=== PATIENT | male | born 1960 | race Caucasian/White ===

== ENCOUNTER 2020-06-09 05:53 | Emergency (ER) | payer MEDICAID, SELFPAY ==
[2020-06-09 05:59] VITALS: BP 163/113; PULSE 95; RESP 18; TEMP 36.8; O2SAT 97; BMI 26.6
[2020-06-09 06:04] VITALS: BP 186/103
--- NOTE | 2020-06-09 06:38 | ED.GENADULT ---
HPI - General Adult General Chief complaint: General Medical Stated complaint: Nose Bleed Time Seen by Provider: 06/09/20 06:28 Source: patient Mode of arrival: EMS History of Present Illness HPI narrative: This is a 59-year-old male who is brought in by EMS and denies being on blood thinners stating that for the past 3 days he has been having intermittent nose bleeds affecting the right nostril. He states that this morning when he got up to watch the news it happened again, but this time seems to be bleeding a little bit more and so he called EMS. Patient denies any headache, chest pain, shortness of breath, GI symptoms. Related Data Allergies Allergy/AdvReac Type Severity Reaction Status Date / Time acetaminophen [From PERCOCET] Allergy Unknown UNKNOWN Unverified 11/29/19 15:03 oxycodone [From PERCOCET] Allergy Unknown UNKNOWN Unverified 11/29/19 15:03 Penicillins [PENICILLINS] Allergy Unknown UNKNOWN Unverified 11/29/19 15:03 Review of Systems Review of Systems: Pertinent positives and negatives as stated in the HPI 10 point review of systems is otherwise negative. [facility] Past Medical History Source: nursing notes reviewed Medical History COPD (chronic obstructive pulmonary disease) H/O ETOH abuse Heart disease History of seizure Surgical History H/O left wrist surgery Social History Social History Advance Directives: No Advance Directives Information Provided: No Physical Exam Vital Signs: Vital Signs: Last Vital Signs Temp 98.3 F 06/09/20 05:59 Pulse 95 06/09/20 05:59 Resp 18 06/09/20 05:59 BP 186/103 H 06/09/20 06:04 Pulse Ox 97 06/09/20 05:59 Body Mass Index 26.6 VITAL SIGNS: Reviewed. GENERAL: Well developed, well nourished, in no acute distress. HEAD: Normocephalic/atraumatic EYES: PERRLA, EOMI EARS: Ext canals without abnormality, TMs non-bulging and non-erythematous NOSE: Examination of the right nostril negative for septal hematoma, active bleeding, but a few small clots were noted. OROPHARYNX: no oral lesions noted, posterior pharynx clear, no stigmata of bleeding noted in the posterior pharynx NECK: Supple, no adenopathy LUNGS: Normal breath sounds. No adventitious sounds or accessory muscle use. SpO2<97> CARDIOVASCULAR: Regular rate and rhythm without noted murmurs, no JVD or lower extremity edema. ABDOMEN: Soft, non-tender, non-distended with bowel sounds. NEUROLOGIC: Alert and oriented x 4. Course Course Course Narrative: This is a 59-year-old male with history and clinical presentation consistent with epistaxis likely secondary to combination of dried mucosa with elevated blood pressure. Patient is currently hemostatic, placed a single dose of Afrin within the right nostril, and patient was discharged in stable condition. In addition, patient received a dose of hydrochlorothiazide and was instructed to follow up with his primary care provider for medication adjustment. As patient is asymptomatic with this blood pressure further evaluation was not conducted. Discharge Plan Discharge Clinical Impression: Epistaxis Patient Disposition: Home, Self-Care Instructions: Oxymetazoline (Into the nose), Nosebleed (ED) Additional Instructions: 1. Please follow-up with your primary care provider today for re-evaluation and assessment of your blood pressure. 2. Please resume any home medications you are taking as prescribed. 3. You may use Afrin, 1 squirt up the affected nostril and then immediate application of pressure for 5 minutes. Re-evaluate after 5 minutes the need to apply another inhalation. 4. In addition, saline spray which is available [id number] and use as directed to keep the nasal mucosa moist. Do not hesitate to return to the emergency department should you experience any acute worsening of symptoms. Referrals: Physician,Unknown [Primary Care Provider] - 2 days
[2020-06-09] MEDS: Oxymetazoline HCl 0.05 % Nasal 15 ML SPRAY 2 SPRAY NOSTRIL-R (06:40)
[2020-06-09] MEDS: hydroCHLOROthiazide 12.5 MG TABLET PO (06:40)
== END 2020-06-09 07:45 | disposition home or self-care (01) ==
PROVIDERS: Emergency Provider Student in an Organized Health Care Education/Training Program
DX: R04.0 Epistaxis (principal); J44.9 Chronic obstructive pulmonary disease, unspecified; F10.10 Alcohol abuse, uncomplicated
CPT/HCPCS: 99283

== ENCOUNTER 2020-09-20 16:27 | Inpatient (IN) | payer MEDICAID, SELFPAY ==
--- NOTE | ~2020-09-20 | XR_ITS ---
EXAMINATION: XR CHEST CLINICAL INFORMATION: 60-year-old male patient with incontinence and history of EtOH. COMPARISON: Last available chest x-ray on 01/28/2012. TECHNIQUE: AP portable semierect views of the chest were obtained. The time examination was 4:55 PM. FINDINGS: No significant abnormality is noted involving the heart, lungs, mediastinum, or bony thorax. There is some soft tissue swelling in the lower right neck of undetermined etiology. XR/XR chest 1V IMPRESSION: No evidence of acute pulmonary disease. Soft tissue swelling lower right neck.
--- NOTE | ~2020-09-20 | CT_ITS ---
CT head/brain wo con CLINICAL INFORMATION: Seizure COMPARISON: Prior head CT 09/20/2020 TECHNIQUE: Department standard protocol. This CT examination was performed using dose optimization techniques as appropriate, variously including the following: *Automated exposure control *Adjustment of mA and/or kV according to patient size (this includes techniques or standardized protocols for targeted exams where dose is matched to indication/reason for exam; i.e. extremities or head) *Use of iterative reconstruction technique DLP: 715 mGy-cm FINDINGS: CEREBRAL HEMISPHERES: Small lacunar infarct in the right ford radiata right basal ganglia adjacent to the caudate lobe unchanged. BRAIN PARENCHYMA: Deep white matter and paraventricular hypoattenuation, nonspecific; most likely changes secondary to chronic ischemia due to microvascular angiopathy. SUBDURAL SPACE: CSF filled space in the right temporal fossa probably arachnoid cyst. This has not changed, roughly measures 4.2 x 2.2 cm. VENTRICLES: Symmetric and normal in size. CEREBELLUM AND BRAINSTEM: No space-occupying mass, hemorrhage or acute infarct. CEREBELLOPONTINE ANGLES: No lesion found. ORBITS: No intraorbital mass. VESSELS: The vessels are symmetrically dense likely vascular. SKULL BASE: Unremarkable INCLUDED SINUSES AT SKULL BASE: Clear SKULL AND SKIN: No fracture or bone lesion found. CT/CT head/brain wo con IMPRESSION: Diffuse deep global white matter white matter and periventricular hypoattenuation, nonspecific; most likely sequela of chronic microvascular angiopathy ischemia. Stable lacunar infarct right basal ganglia ford radiata adjacent to the caudate lobe. Normal CT scan does not rule out the possibility of hyperacute infarct in the first 12 hours. If patient symptoms persist may consider correlation with MRI, which is more sensitive for early acute infarct.
--- NOTE | ~2020-09-20 | CT_ITS ---
EXAMINATION: CT HEAD WITHOUT CONTRAST CLINICAL INFORMATION: Hyponatremia. Diaphoresis. COMPARISON: 07/22/2019 TECHNIQUE: Contiguous axial imaging was performed from the skull base to vertex without intravenous contrast. This CT examination was performed using dose optimization techniques as appropriate, variously including the following: * Automated exposure control * Adjustment of mA and/or kV according to patient size (this includes techniques or standardized protocols for targeted exams where dose is matched to indication/reason for exam; i.e. extremities or head) Use of iterative reconstruction technique DLP: 725 mGy-cm. FINDINGS: There is no evidence of acute intracranial hemorrhage or territorial infarction. No abnormal mass effect or midline shift is seen. Huertas to white matter differentiation is well preserved. No extra-axial fluid collections are identified. No hydrocephalus. Proportional prominence of the ventricles and sulcal spaces is consistent with moderate volume loss. Patchy periventricular and deep white matter hypoattenuation is consistent with moderate small vessel ischemic changes. The osseous structures and soft tissues are normal. The mastoid air cells and visualized portions of the paranasal sinuses are well aerated. CT/CT head/brain wo con IMPRESSION: No acute intracranial pathology. Chronic volume loss with small vessel ischemic change.
[2020-09-20 16:38] VITALS: BP 150/80; PULSE 83; O2SAT 96
[2020-09-20 16:39] VITALS: BP 157/100; PULSE 91; RESP 18; TEMP 36.7; O2SAT 97
--- NOTE | 2020-09-20 16:39 | ECG_ITS ---
Test Reason : STUBSTANCE ABUSE Blood Pressure : / mmHG Vent. Rate : 078 BPM Atrial Rate : 078 BPM P-R Int : 134 ms QRS Dur : 084 ms QT Int : 438 ms P-R-T Axes : 064 044 068 degrees QTc Int : 499 ms Normal sinus rhythm Prolonged QT Abnormal ECG When compared with ECG of 22-JUL-2019 13:36, QT has lengthened Referred By: Yoly Abebe Electronically Signed By:BREANA MATTHEWS
[2020-09-20 16:49] VITALS: BP 157/100; BP 190/80; PULSE 78; PULSE 83; RESP 20; TEMP 36.6; O2SAT 96; BMI 26.1
--- NOTE | 2020-09-20 16:52 | ED_ITS ---
HPI - General Adult General Chief complaint: ETOH/Substance Use Stated complaint: etoh Time Seen by Provider: 09/20/20 16:30 Source: patient and EMS Mode of arrival: EMS History of Present Illness HPI narrative: 60-year-old male with a past medical history of COPD, ETOH abuse, heart disease, seizure, BIBA for ETOH abuse, diaphoresis, and urinary incontinence. Reports last drink earlier this morning. Per EMS patient's girlfriend called due to her concern. Patient offers no complaints at present. Patient denies ETOH use, illicit drug use, CP/SOB, abdominal pain, nausea/vomiting, back pain, fall/trauma. Denies taking anticoagulation. Denies SI/HI Related Data Allergies Allergy/AdvReac Type Severity Reaction Status Date / Time acetaminophen [From PERCOCET] Allergy Unknown UNKNOWN Unverified 11/29/19 15:03 oxycodone [From PERCOCET] Allergy Unknown UNKNOWN Unverified 11/29/19 15:03 Penicillins [PENICILLINS] Allergy Unknown UNKNOWN Unverified 11/29/19 15:03 Review of Systems Review of Systems: Constitutional: No Fever, No Chills Cardiovascular: No Chest Pain, No SOB, No Edema, No Palpitations Respiratory: No Cough, No Dyspnea Gastrointestinal: No Nausea, No Vomiting, No Diarrhea, No Constipation, No Abdominal pain Genitourinary: No Dysuria, No Urinary Frequency, No Hematuria, + Urinary Incontinence Musculoskeletal: No joint pain, No Myalgias, No Joint Swelling Skin: No Skin Lesions, No rash Neuro: No Weakness, No Loss of Consciousness, No Headache Psych: No Anxiety/Panic, No Depression, No SI/HI Yes all other systems are reviewed and are negative Neurologic: Denies Abnormal speech present [facility] Past Medical History Attestation statement: The following information was validated with the patient. Medical History COPD (chronic obstructive pulmonary disease) H/O ETOH abuse Heart disease History of seizure Surgical History H/O left wrist surgery Social History Social History Advance Directives: No Advance Directives Information Provided: No Physical Exam Vital Signs: Vital Signs: Last Vital Signs Temp 98.3 F 09/20/20 20:23 Pulse 90 09/20/20 20:23 Resp 18 09/20/20 20:23 BP 153/103 H 09/20/20 20:23 Pulse Ox 96 09/20/20 20:23 Body Mass Index 26.1 Const: Other: poor hygiene/incontinent of urine General: poor hygiene Orientation/consciousness: patient oriented x3 Limitations: no limitations HENMT: Head: Yes normal to inspection and Yes atraumatic Ears: hearing grossly normal bilaterally General nose exam: Normal external nose present Face and sinus: Yes normal facial exam Eyes: General: appearance normal, both eyes and all related structures Pupils: Equal, round and reactive pupils present EOM: EOMs intact bilaterally Neck: Neck: Yes normal visual inspection and Yes no meningeal signs Resp: Effort & Inspection: normal respiratory effort Auscultation: clear to auscultation bilaterally, no rales and no wheezes Cardio: Rate: regular rate Heart sounds: S1 normal heart sound present and S2 normal heart sound present GI: Inspection: Yes normal to inspection Palpation (GI): Soft to palpation, nontender, no guarding and not rigid Skin: Rashes: no rashes Wounds: no wounds Neuro: General: patient oriented x3, tone normal, moves all extremities, no meningeal signs, no focal motor deficits and CN's II-XI intact bilaterally Cranial nerves: Yes Equal, round and reactive pupils present Speech: No Abnormal speech present Gait exam (Neuro): Normal gait present Motor exam (neuro): 5/5 motor strength present throughout Extrem: General: Yes normal to inspection Course Course Course Narrative: XR chest 1V IMPRESSION: No evidence of acute pulmonary disease. Soft tissue swelling lower right neck. >> no appreciable soft tissue swelling on physical exam. No intraoral swelling. Uvula midline, handling secretions, talking in complete sentences -2007--no leukocytosis, H&H stable, hyponatremic with a sodium of 123 >> serum osmolality and urine studies ordered. Hyponatremia and ETOH abuse putting him at greater risk for seizures > 1G Keppra ordered. Potassium low at 2.4 > p.o. and IV repletion ordered -troponin mildly elevated at 31.8 > will obtain 3 hour repeat, ethanol negative Plan to admit for further management. Admitted at 8:37 p.m. Medical Decision Making [facility] Narrative Medical decision making narrative: 60-year-old male with a past medical history of COPD, ETOH abuse, heart disease, seizure, BIBA for ETOH abuse, diaphoresis, and urinary incontinence. On exam hypertensive, A&O x3, poor hygiene, asymptomatic, poor historian, exam nonfocal. Concern for ETOH/substance abuse vs metabolic/infectious etiology vs ACS Plan: EKG, labs, UA, CXR, IVF, reassess Lab Data Result diagrams: 09/20/20 19:45 09/20/20 19:45 Labs: Lab Results 09/20/20 09/20/20 09/20/20 Range/Units 17:24 18:44 18:44 WBC (4.8-10.8) X10*3/uL RBC (4.60-5.80) X10*6/uL Hgb (14.0-18.0) g/dl Hct (42-52) % MCV (80-98) fL MCH (27.0-33.0) pg MCHC (31.0-36.0) g/dl RDW (11.0-16.0) % Plt Count (160-400) X10*3/uL MPV (9.4-12.4) fL Immature Gran % (Auto) (0.0-0.4) % Neut % (Auto) (45-73) % Lymph % (Auto) (20-40) % Robertson % (Auto) (2-11) % Eos % (Auto) (0-4) % Baso % (Auto) (0-2) % Lymph # (Auto) (1.2-4.9) X10*3/uL Robertson # (Auto) (0.1-1.2) X10*3/uL Eos # (Auto) (0.0-0.4) X10*3/uL Baso # (Auto) (0.0-0.2) X10*3/uL Abs Immat Gran (auto) (0.00-0.03) X10*3/uL Absolute Neuts (auto) (2.0-8.3) X10*3/uL Absolute Nucleated RBC (0.0-0.012) X10*3/uL Nucleated RBC % (auto) (0.0-0.2) /100WBC Smear Tech's Comments PT 10.6 (9.9-13.0) SEC INR 0.9 (0.9-1.1) APTT 29.1 (24.1-38.0) SEC Coag Specimen Comment DELAY Sodium (135-145) mmol/L Potassium (3.3-5.1) mmol/L Chloride (96-108) mmol/L Carbon Dioxide (22-29) mmol/L Anion Gap (12-20) BUN (9-16) mg/dL Creatinine (0.5-1.4) mg/dL Estim Creat Clear Calc Estimated GFR Random Glucose (60-115) mg/dL Osmolality (281-305) mosm/kg Calcium (8.4-10.2) mg/dL Magnesium (1.6-2.6) mg/dL Total Bilirubin (0.0-1.0) mg/dL Direct Bilirubin (0.0-0.5) mg/dL AST (5-37) U/L ALT (0-40) U/L Alkaline Phosphatase (39-117) U/L Ammonia 31 (13-55) umol/L Troponin I High Sens 31.8 (<3.5-35.0) ng/L Total Protein (6.5-8.0) g/dL Albumin (3.5-5.0) g/dL Lipase (8-78) U/L Ethyl Alcohol mg/dL 09/20/20 09/20/20 09/20/20 Range/Units 18:45 19:45 19:45 WBC 9.0 (4.8-10.8) X10*3/uL RBC 3.49 L (4.60-5.80) X10*6/uL Hgb 12.2 L (14.0-18.0) g/dl Hct 31.3 L (42-52) % MCV 89.7 (80-98) fL MCH 35.0 H (27.0-33.0) pg MCHC 39.0 H (31.0-36.0) g/dl RDW 12.7 (11.0-16.0) % Plt Count 150 L (160-400) X10*3/uL MPV 8.8 L (9.4-12.4) fL Immature Gran % (Auto) 0.6 H (0.0-0.4) % Neut % (Auto) 85.2 H (45-73) % Lymph % (Auto) 5.3 L (20-40) % Robertson % (Auto) 8.6 (2-11) % Eos % (Auto) 0.2 (0-4) % Baso % (Auto) 0.1 (0-2) % Lymph # (Auto) 0.5 L (1.2-4.9) X10*3/uL Robertson # (Auto) 0.8 (0.1-1.2) X10*3/uL Eos # (Auto) 0.0 (0.0-0.4) X10*3/uL Baso # (Auto) 0.0 (0.0-0.2) X10*3/uL Abs Immat Gran (auto) 0.05 H (0.00-0.03) X10*3/uL Absolute Neuts (auto) 7.7 (2.0-8.3) X10*3/uL Absolute Nucleated RBC 0.000 (0.0-0.012) X10*3/uL Nucleated RBC % (auto) 0.0 (0.0-0.2) /100WBC Smear Tech's Comments VERIFIED PT (9.9-13.0) SEC INR (0.9-1.1) APTT (24.1-38.0) SEC Coag Specimen Comment Sodium 123 L (135-145) mmol/L Potassium 2.4 L* (3.3-5.1) mmol/L Chloride 70 L (96-108) mmol/L Carbon Dioxide 34 H (22-29) mmol/L Anion Gap 21 H (12-20) BUN 12 (9-16) mg/dL Creatinine 1.01 (0.5-1.4) mg/dL Estim Creat Clear Calc 77.1 Estimated GFR > 60 Random Glucose 95 (60-115) mg/dL Osmolality (281-305) mosm/kg Calcium 8.7 (8.4-10.2) mg/dL Magnesium 1.7 (1.6-2.6) mg/dL Total Bilirubin 1.1 H (0.0-1.0) mg/dL Direct Bilirubin 0.7 H (0.0-0.5) mg/dL AST 28 (5-37) U/L ALT 14 (0-40) U/L Alkaline Phosphatase 123 H (39-117) U/L Ammonia (13-55) umol/L Troponin I High Sens (<3.5-35.0) ng/L Total Protein 6.5 (6.5-8.0) g/dL Albumin 3.8 (3.5-5.0) g/dL Lipase 66 (8-78) U/L Ethyl Alcohol < 10 mg/dL 09/20/20 Range/Units 19:45 WBC (4.8-10.8) X10*3/uL RBC (4.60-5.80) X10*6/uL Hgb (14.0-18.0) g/dl Hct (42-52) % MCV (80-98) fL MCH (27.0-33.0) pg MCHC (31.0-36.0) g/dl RDW (11.0-16.0) % Plt Count (160-400) X10*3/uL MPV (9.4-12.4) fL Immature Gran % (Auto) (0.0-0.4) % Neut % (Auto) (45-73) % Lymph % (Auto) (20-40) % Robertson % (Auto) (2-11) % Eos % (Auto) (0-4) % Baso % (Auto) (0-2) % Lymph # (Auto) (1.2-4.9) X10*3/uL Robertson # (Auto) (0.1-1.2) X10*3/uL Eos # (Auto) (0.0-0.4) X10*3/uL Baso # (Auto) (0.0-0.2) X10*3/uL Abs Immat Gran (auto) (0.00-0.03) X10*3/uL Absolute Neuts (auto) (2.0-8.3) X10*3/uL Absolute Nucleated RBC (0.0-0.012) X10*3/uL Nucleated RBC % (auto) (0.0-0.2) /100WBC Smear Tech's Comments PT (9.9-13.0) SEC INR (0.9-1.1) APTT (24.1-38.0) SEC Coag Specimen Comment Sodium (135-145) mmol/L Potassium (3.3-5.1) mmol/L Chloride (96-108) mmol/L Carbon Dioxide (22-29) mmol/L Anion Gap (12-20) BUN (9-16) mg/dL Creatinine (0.5-1.4) mg/dL Estim Creat Clear Calc Estimated GFR Random Glucose (60-115) mg/dL Osmolality 248 L (281-305) mosm/kg Calcium (8.4-10.2) mg/dL Magnesium (1.6-2.6) mg/dL Total Bilirubin (0.0-1.0) mg/dL Direct Bilirubin (0.0-0.5) mg/dL AST (5-37) U/L ALT (0-40) U/L Alkaline Phosphatase (39-117) U/L Ammonia (13-55) umol/L Troponin I High Sens (<3.5-35.0) ng/L Total Protein (6.5-8.0) g/dL Albumin (3.5-5.0) g/dL Lipase (8-78) U/L Ethyl Alcohol mg/dL Discharge Plan Discharge Clinical Impression: Acute hyponatremia, Acute hypokalemia Patient Disposition: Admitted As Inpatient
[2020-09-20] MEDS: 0.9 % Sodium Chloride 1,000 ML 999 ML IVCONT (17:32)
[2020-09-20 17:46] LABS: Delay - Coag DELAY
[2020-09-20 18:05] LABS: Ethanol < 10 mg/dL
[2020-09-20 19:05] LABS: Ammonia 31 umol/L (13-55)
--- NOTE | 2020-09-20 19:18 | PC.NURSE ---
RN received a call from lab reporting that per their smoke jumper supervisor a labor supervisor will be coming to the floor to redraw the patient. His initial blood hemolyzed, 2nd redraw the results were abnormal and the 3rd were still per lab not congruent with his reason for presentation. RN confirmed this information and will make the MD aware of the hold up on the results.
[2020-09-20 19:35] LABS: Basophils Percent Auto 0.1 % (0-2); Eosinophils Percent Auto 0.2 % (0-4); Hematocrit 31.3 % (42-52); Hemoglobin 12.2 g/dl (14.0-18.0); Imm Gran Abs Auto 0.05 X10*3/uL (0.00-0.03); Imm Gran Pct Auto 0.6 % (0.0-0.4); Lymphocytes Absolute Auto 0.5 X10*3/uL (1.2-4.9); Lymphocytes Percent Auto 5.3 % (20-40); MANUAL DIFF FLAG SCAN; Mean Corpuscular Volume 89.7 fL (80-98); Mean Platelet Volume 8.8 fL (9.4-12.4); Monocytes Absolute Auto 0.8 X10*3/uL (0.1-1.2); Monocytes Percent Auto 8.6 % (2-11); Neutrophils Absolute Auto 7.7 X10*3/uL (2.0-8.3); Neutrophils Percent Auto 85.2 % (45-73); Platelet Count 150 X10*3/uL (160-400); Red Blood Count 3.49 X10*6/uL (4.60-5.80); Red Cell Distribution Width 12.7 % (11.0-16.0); SCAN SMEAR FLAG 1
[2020-09-20 19:43] LABS: SLIDE REVIEW VERIFIED
[2020-09-20 19:44] LABS: INTERNATIONAL NORM RATIO 0.9 (0.9-1.1); Prothrombin Time 10.6 SEC (9.9-13.0)
[2020-09-20 19:47] LABS: Partial Thromboplastin Time 29.1 SEC (24.1-38.0)
[2020-09-20 20:00] VITALS: BP 179/105; PULSE 77; RESP 18; O2SAT 98
[2020-09-20 20:02] LABS: Troponin-I High Sensitivity 31.8 ng/L (<3.5-35.0)
[2020-09-20 20:05] LABS: Alanine Aminotransferase 14 U/L (0-40); Albumin Level 3.8 g/dL (3.5-5.0); Alkaline Phosphatase 123 U/L (39-117); Anion Gap 21 (12-20); Aspartate Amino Transferase 28 U/L (5-37); Bilirubin Direct 0.7 mg/dL (0.0-0.5); Bilirubin Total 1.1 mg/dL (0.0-1.0); Blood Urea Nitrogen 12 mg/dL (9-16); Calcium 8.7 mg/dL (8.4-10.2); Carbon Dioxide 34 mmol/L (22-29); Chloride 70 mmol/L (96-108); Creatinine Clr Calc Pharmacy 77.1; Estimated Glomerular Filt Rate > 60; Glucose Random 95 mg/dL (60-115); Lipase 66 U/L (8-78); Magnesium 1.7 mg/dL (1.6-2.6); Sodium 123 mmol/L (135-145); Total Protein 6.5 g/dL (6.5-8.0)
[2020-09-20 20:09] LABS: Potassium 2.4 mmol/L (3.3-5.1)
[2020-09-20 20:23] VITALS: BP 153/103; PULSE 90; RESP 18; TEMP 36.8; O2SAT 96
[2020-09-20 20:26] LABS: Osmolality, Serum 248 mosm/kg (281-305)
--- NOTE | 2020-09-20 21:07 | PC.NURSE ---
Maria C pt SO left phone number [phone]
--- NOTE | 2020-09-20 21:16 | P.HPHOSP_ITS ---
History of Present Illness Date of Service: 09/20/20 Chief Complaint: Seizure 60-year-old male with a past medical history of alcohol abuse, seizure, depression, hypertension,? Heart disease presented to the hospital with a chief complaint of alcohol withdrawal/seizure. Patient is alert and oriented x3, when asked -> patient reports that his girlfriend brought him to the hospital. Denies any complaints. Denies any chest pain palpitations lightheadedness or dizziness. Denies any headaches numbness tingling. Denies any nausea vomiting diarrhea. Denies any fever chills cough. As per the ER team patient was sent to the hospital by the patient's girlfriend because patient was noted to be withdrawing/urinary incontinence/diaphoretic at home. ? Seizure like activity at home. Patient reports that he has been compliant with his home seizure medication; last seizure was 15 days ago; mentions he probably had a seizure at home today. Last drink was 2 days ago. Review of all other systems is negative except mentioned above ER course: Per ER team patient noted to have severe hypokalemia, EKG showed probable U waves; patient was aggressively repleted with potassium; given Keppra x1. CT head pending. Patient exam was nonfocal. Admitted for further management [facility] Medical History (Updated 09/24/20 @ 15:42 by Wendy Patel MD) COPD (chronic obstructive pulmonary disease) H/O ETOH abuse HCV (hepatitis C virus) Heart disease Seizure disorder Surgical History H/O left wrist surgery Social History (Updated 09/21/20 @ 07:11 by Pedro Luis North MD) Household Members: Significant Other Housing: Apartment Alcohol intake: current Patient Tobacco Use Status: Current everyday Tobacco user Tobacco use type: Cigarette Cigarette Packs Per Day: 0.5 Cigarettes Per Day: 10.0 service: No Meds Allergies Allergy/AdvReac Type Severity Reaction Status Date / Time acetaminophen [From PERCOCET] Allergy Mild Rash Verified 09/21/20 17:29 oxycodone [From PERCOCET] Allergy Mild Rash Verified 09/21/20 17:29 Penicillins [PENICILLINS] Allergy Mild Rash Verified 09/21/20 17:29 Active Medications: Current Medications Generic Name Dose Route Start Last Admin Trade Name Freq PRN Reason Stop Dose Admin Famotidine 20 mg 09/20/20 21:00 Famotidine 20 Mg Tablet PO BID [facility] Folic Acid 1 mg 09/21/20 09:00 Folic Acid 1 Mg Tablet PO 09/24/20 08:59 DAILY [facility] Potassium Chloride 10 meq in 100 mls @ 100 mls/hr 09/20/20 20:30 IV 09/20/20 22:29 Q1H [facility]PE Dextrose/Sodium Chloride 1,000 mls @ 100 mls/hr 09/20/20 21:00 D51/2ns IVCONT .Q10H [facility] Levetiracetam 750 mg/ Sodium 107.5 mls @ 400 mls/hr 09/21/20 09:00 Chloride IV Q12H [facility] Lorazepam 1 mg 09/20/20 20:56 Lorazepam 1 Mg Tablet PO 09/24/20 20:55 Q4H PRN Breakthrough alcohol withdrawa Melatonin 6 mg 09/20/20 20:56 Melatonin 3 Mg Tablet PO BEDTIME PRN Insomnia Multivitamins 1 tab 09/21/20 09:00 B-Complex With Vitamin C Tablet PO DAILY [facility] Senna 17.2 mg 09/20/20 20:56 Sennosides 8.6 Mg Tablet PO BEDTIME PRN Constipation Sodium Chloride 3 ml 09/21/20 00:00 0.9 % Sodium Chloride Flush 3 Ml Syringe IVFLUSH QSHIFT [facility] Thiamine HCl 100 mg 09/21/20 09:00 Thiamine Hcl 100 Mg Tablet PO 09/24/20 08:59 DAILY [facility] Home Medications Medication Instructions Recorded Confirmed Last Taken Type aspirin 1 tab PO DAILY 09/20/20 09/20/20 Unknown History fluoxetine 2 cap PO QAM 09/20/20 09/20/20 Unknown History folic acid 1 tab PO ONCE 09/20/20 09/20/20 Unknown History oxcarbazepine 1 tab PO TID 09/20/20 09/20/20 Unknown History thiamine HCl (vitamin B1) [Vitamin 1 tab PO DAILY 09/20/20 09/20/20 Unknown History B-1] Physical Exam Vital Signs and Narrative: Vital Signs: Last Vital Signs Temp 98.3 F 09/20/20 20:23 Pulse 90 09/20/20 20:23 Resp 18 09/20/20 20:23 BP 153/103 H 09/20/20 20:23 Pulse Ox 96 09/20/20 20:23 Body Mass Index 26.1 Gen: Appears be in no acute distress HEENT: NCAT, dry mucosa. Pulmonary: Vesicular breath sounds, fair air entry CVS: Normal S1-S2 Abdomen: BS+, Soft, Nontender Extremities: Warm well perfused Neuro: Alert and awake. Results Labs CBC and Chem 7: 09/25/20 07:58 09/25/20 07:58 Labs: Laboratory Results - last 24 hr 09/20/20 09/20/20 09/20/20 17:24 18:44 18:44 MCV MCH MCHC RDW Plt Count MPV Immature Gran % (Auto) Neut % (Auto) Lymph % (Auto) [place] % (Auto) Eos % (Auto) Baso % (Auto) Lymph # (Auto) [place] # (Auto) Eos # (Auto) Baso # (Auto) Abs Immat Gran (auto) Absolute Neuts (auto) Absolute Nucleated RBC Nucleated RBC % (auto) Smear Tech's Comments PT 10.6 INR 0.9 APTT 29.1 Coag Specimen Comment DELAY Anion Gap Estim Creat Clear Calc Estimated GFR Random Glucose Osmolality Calcium Magnesium Total Bilirubin Direct Bilirubin AST ALT Alkaline Phosphatase Ammonia 31 Troponin I High Sens 31.8 Total Protein Albumin Lipase Ethyl Alcohol 09/20/20 09/20/20 09/20/20 18:45 19:45 19:45 MCV 89.7 MCH 35.0 H MCHC 39.0 H RDW 12.7 Plt Count 150 L MPV 8.8 L Immature Gran % (Auto) 0.6 H Neut % (Auto) 85.2 H Lymph % (Auto) 5.3 L [place] % (Auto) 8.6 Eos % (Auto) 0.2 Baso % (Auto) 0.1 Lymph # (Auto) 0.5 L [place] # (Auto) 0.8 Eos # (Auto) 0.0 Baso # (Auto) 0.0 Abs Immat Gran (auto) 0.05 H Absolute Neuts (auto) 7.7 Absolute Nucleated RBC 0.000 Nucleated RBC % (auto) 0.0 Smear Tech's Comments VERIFIED PT INR APTT Coag Specimen Comment Anion Gap 21 H Estim Creat Clear Calc 77.1 Estimated GFR > 60 Random Glucose 95 Osmolality Calcium 8.7 Magnesium 1.7 Total Bilirubin 1.1 H Direct Bilirubin 0.7 H AST 28 ALT 14 Alkaline Phosphatase 123 H Ammonia Troponin I High Sens Total Protein 6.5 Albumin 3.8 Lipase 66 Ethyl Alcohol < 10 09/20/20 19:45 MCV MCH MCHC RDW Plt Count MPV Immature Gran % (Auto) Neut % (Auto) Lymph % (Auto) [place] % (Auto) Eos % (Auto) Baso % (Auto) Lymph # (Auto) [place] # (Auto) Eos # (Auto) Baso # (Auto) Abs Immat Gran (auto) Absolute Neuts (auto) Absolute Nucleated RBC Nucleated RBC % (auto) Smear Tech's Comments PT INR APTT Coag Specimen Comment Anion Gap Estim Creat Clear Calc Estimated GFR Random Glucose Osmolality 248 L Calcium Magnesium Total Bilirubin Direct Bilirubin AST ALT Alkaline Phosphatase Ammonia Troponin I High Sens Total Protein Albumin Lipase Ethyl Alcohol Imaging Radiologist's Impressions: Impressions Chest X-Ray 09/20/20 16:50 IMPRESSION: No evidence of acute pulmonary disease. Soft tissue swelling lower right neck. Assessment and Plan (1) Acute hypokalemia: Status: Acute 60-year-old male with a past medical history of alcohol abuse, COPD, depression presented to the hospital with a chief complaint of question seizure at home alcohol abuse/withdrawal: Patient currently mentating well. Monitor on CIWA protocol. Ativan p.r.n.. Time in, folate, multivitamins. Hypokalemia: Repleted. Will repeat levels. Magnesium within the normal limits. Hyponatremia: Patient currently mentating well. Unclear if the patient had a seizure at home. normal exam. Seizure precautions. Will give the patient on normal saline at 50 cc/hour. Repeat the levels. Nephrology consult. Seizure episode: Multifactorial. Question medication noncompliance versus alcohol withdrawal related as patient last drink was about 2 days ago versus hyponatremia. Patient is given Keppra in the ER. Will continue for now. Neurology consult Will obtain home medication oxcarbazepine levels Continue home oxcarbazepine. CT head pending Urine and Stool incontinence: pt has chronic incontinence for about 6 months-> attributes to heavy drinking; pt uses Diapers; MRI L spine Neurology consult [facility] urgency: s/w Amlodipine 5mg; History of COPD: Stable DVT prophylaxis: SCD boots Code status: Full code Spoke to pt's Significant other Maria C- [phone]. Home meds: ASA Folic acid Fluoxetine 40mg daily Multivitamin Meloxicam 1 tab BID thiamine Oxcarbazepine 150mg TID Albuterol MDI Quality Stroke Does the patient have a stroke diagnosis?: No VTE Prior VTE?: No VTE Risk Level:: Medical - moderate - high VTE Device Contraindication: N/A - Device Ordered VTE Drug Contraindication: Treatment Not Indicated
[2020-09-20] MEDS: levETIRAcetam in NaCl (iso-os) 1,000 MG/100 ML PIGGYBACK 400 MG IV (21:17)
[2020-09-20] MEDS: Potassium Chloride/H20 10 MEQ/100 ML PIGGYBACK 100 MEQ IV ×2 (21:20→23:25)
[2020-09-20] MEDS: Potassium Chloride Packet 20 MEQ PACKET 40 MEQ PO ×2 (21:21)
[2020-09-20 21:37] LABS: COVID-19 Test Negative (Negative); IDNOW Serial# 9DD0AD1C
--- NOTE | 2020-09-20 21:44 | PC.NURSE ---
pt relocated to bed 8 for cardiac monitoring and for comfort. Per PA IV Potassium slowed to 75ml/hr due to reports of severe burning/discomfort
[2020-09-20 22:05] LABS: Blood Urea Nitrogen 11 mg/dL (9-16); Calcium 8.8 mg/dL (8.4-10.2); Creatinine Clr Calc Pharmacy 80.3; Estimated Glomerular Filt Rate > 60; Glucose Random 95 mg/dL (60-115)
[2020-09-20 22:14] LABS: Anion Gap 21 (12-20); Carbon Dioxide 36 mmol/L (22-29); Chloride 69 mmol/L (96-108); Potassium 2.5 mmol/L (3.3-5.1); Sodium 123 mmol/L (135-145)
[2020-09-21] VITALS (11 sets, daily range): BP systolic 134–207; BP diastolic 76–124; PULSE 72–88; RESP 12–18; TEMP 36.2–36.8; O2SAT 94–97
--- NOTE | 2020-09-21 01:37 | PC.NURSE ---
Rn spoke with hospitalist regarding pt's reported bowel/bladder incontinence. Per MD plan is for straight catheterization to obtain UA for testing and MD to consult pt's live in spouse to identify whether this incontinence is new and/or old as it was not previously noted. pt to be straight cathed for urine sample, call simmons remains in place. IV Potassium infusing without s/s of complications.
[2020-09-21] MEDS: Dextrose 5 % and 0.9 % NaCl 1,000 ML 50 ML IVCONT (02:02)
[2020-09-21 02:07] LABS: Glucose Urine UA NEG (NEG); Leukocyte Esterase Urine NEG (NEG); Nitrite Urine NEG (NEG); Specific Gravity - Urine 1.015 (1.005-1.025); Urine Blood TRACE (NEG); Urine Ketones 15 MG/DL (NEG); Urine Protein 2+ MG/DL (NEG-TRACE)
[2020-09-21 02:09] LABS: Appearance Urine CLEAR; Color Urine YELLOW
[2020-09-21 02:19] LABS: Bacteria Urine 1+ /LPF; Squamous Epithelial Cell Urine 1+ /LPF
[2020-09-21 02:28] LABS: Osmolality Urine 245 mosm/kg (373-1093)
[2020-09-21 02:31] LABS: Creatinine Urine 20.59 mg/dL; Potassium Urine Random 28.5 mmol/L
[2020-09-21 02:32] LABS: Amphetamine Screen Urine Not Detected (Not Detect); Barbiturates, Urine Not Detected (Not Detect); Benzodiazepines Screen Urine Not Detected (Not Detect); Cannabinoid Screen Urine Not Detected (Not Detect); Cocaine Screen Urine Not Detected (Not Detect); Opiate Screen Urine Not Detected (Not Detect); Phencyclidine Screen Urine Not Detected (Not Detect)
[2020-09-21] MEDS: amLODIPine Besylate 5 MG TABLET PO (02:40)
[2020-09-21] MEDS: Folic Acid 1 MG TABLET PO ×2 (02:40→08:58)
[2020-09-21] MEDS: Labetalol HCL 100 MG/20 ML VIAL 10 MG IVPUSH (05:26)
[2020-09-21 05:41] LABS: Basophils Percent Auto 0.4 % (0-2); Eosinophils Absolute Auto 0.1 X10*3/uL (0.0-0.4); Eosinophils Percent Auto 0.7 % (0-4); Hematocrit 30.7 % (42-52); Hemoglobin 11.6 g/dl (14.0-18.0); Imm Gran Abs Auto 0.04 X10*3/uL (0.00-0.03); Imm Gran Pct Auto 0.5 % (0.0-0.4); Lymphocytes Absolute Auto 0.7 X10*3/uL (1.2-4.9); Lymphocytes Percent Auto 8.3 % (20-40); MANUAL DIFF FLAG SCAN; Mean Corpuscular Hemoglobin 34.5 pg (27.0-33.0); Mean Corpuscular Volume 91.4 fL (80-98); Mean Platelet Volume 8.6 fL (9.4-12.4); Monocytes Absolute Auto 0.9 X10*3/uL (0.1-1.2); Neutrophils Absolute Auto 6.6 X10*3/uL (2.0-8.3); Neutrophils Percent Auto 79.1 % (45-73); Platelet Count 142 X10*3/uL (160-400); Red Blood Count 3.36 X10*6/uL (4.60-5.80); Red Cell Distribution Width 12.5 % (11.0-16.0); SCAN SMEAR FLAG 1; White Blood Count 8.3 X10*3/uL (4.8-10.8)
[2020-09-21 06:08] LABS: Anion Gap 16 (12-20); Blood Urea Nitrogen 10 mg/dL (9-16); Calcium 8.7 mg/dL (8.4-10.2); Carbon Dioxide 37 mmol/L (22-29); Chloride 75 mmol/L (96-108); Creatinine Clr Calc Pharmacy 87.5; Estimated Glomerular Filt Rate > 60; Glucose Random 108 mg/dL (60-115); Potassium 2.8 mmol/L (3.3-5.1); Sodium 125 mmol/L (135-145)
[2020-09-21 06:12] LABS: Mean Corpuscular HGB Conc 37.8 g/dl (31.0-36.0)
[2020-09-21 06:15] LABS: SLIDE REVIEW VERIFIED
[2020-09-21] MEDS: FLUoxetine HCl 20 MG CAPSULE 40 MG PO (08:58)
[2020-09-21] MEDS: OXcarbazepine 150 MG TABLET PO ×3 (08:58→21:28)
[2020-09-21] MEDS: Enoxaparin Sodium 40 MG/0.4 ML SYRINGE SUBCUT (08:58)
[2020-09-21] MEDS: Aspirin Enteric Coated 81 MG TABLET.DR PO (08:58)
[2020-09-21] MEDS: Thiamine HCL 100 MG TABLET PO (08:58)
[2020-09-21] MEDS: amLODIPine Besylate 5 MG TABLET 10 MG PO (08:59)
[2020-09-21] MEDS: Famotidine 20 MG TABLET PO ×2 (08:59→21:28)
[2020-09-21] MEDS: 0.9 % Sodium Chloride Flush 3 ML SYRINGE IVFLUSH ×2 (09:00→21:28)
[2020-09-21] MEDS: PHENobarbitaL sodium 130 MG/ML VIAL 219 MG IM (09:02)
[2020-09-21] MEDS: levETIRAcetam 750 MG in 0.9 % Sodium Chloride 100 ML 400 MG IV (09:14)
--- NOTE | 2020-09-21 09:25 | PC.NURSE ---
assumed care of patient at 0700 patients bed linens soiled and hospital gown saturated in blood. upon further assessment the patients IV was noted to be dislodged and was bleeding slightly onto his gown. this RN removed the IV, changed the patient over and reinserted a new IV into the right forearm.
--- NOTE | 2020-09-21 10:52 | P.PNIM_ITS ---
Subjective Subjective Date of Service: 09/21/20 Interval History: no complaints Cardiovascular Cardiovascular: Reports no additional cardiovascular complaints Respiratory Respiratory: Reports no additional respiratory complaints Physical Exam Vital Signs: Vital Signs: Last Vital Signs Temp 98.3 F 09/20/20 20:23 Pulse 75 09/21/20 08:59 Resp 18 09/21/20 06:03 BP 173/99 H 09/21/20 08:59 Pulse Ox 96 09/21/20 06:03 Body Mass Index 26.1 General: AO X 3, no acute distress Resp: CTA bilateral CVS: S1,S2,RRR GI: soft, non tender, non distended Neuro: motor grossly intact Psych: appropriate affect Objective Data Current Medications Generic Name Dose Route Start Last Admin Trade Name Freq PRN Reason Stop Dose Admin Amlodipine Besylate 10 mg 09/21/20 09:00 09/21/20 08:59 Amlodipine Besylate 5 Mg Tablet PO 10 mg DAILY CHEPE Administration Protocol Aspirin 81 mg 09/21/20 09:00 09/21/20 08:58 Aspirin Enteric Coated 81 Mg Tablet. PO 81 mg DAILY CHEPE Administration Enoxaparin Sodium 40 mg 09/21/20 08:00 09/21/20 08:58 Enoxaparin Sodium 40 Mg/0.4 Ml Syringe SUBCUT 40 mg Q24H [facility]PE Administration Famotidine 20 mg 09/20/20 21:00 09/21/20 08:59 Famotidine 20 Mg Tablet PO 20 mg BID [facility]PE Administration Fluoxetine HCl 40 mg 09/21/20 09:00 09/21/20 08:58 Fluoxetine Hcl 20 Mg Capsule PO 40 mg DAILY [facility] Administration Folic Acid 1 mg 09/21/20 09:00 09/21/20 08:58 Folic Acid 1 Mg Tablet PO 09/24/20 08:59 1 mg DAILY [facility]PE Administration Levetiracetam 750 mg/ Sodium 107.5 mls @ 400 mls/hr 09/21/20 09:00 09/21/20 10:16 Chloride IV Infused Q12H [facility]PE Infusion Labetalol HCl 10 mg 09/21/20 04:54 09/21/20 05:26 Labetalol Hcl 100 Mg/20 Ml Vial IVPUSH 10 mg Q4H PRN Administration BP>180/90 Medication 1 each 09/21/20 08:00 No Benzodiazepines MISCELLANE DAILY CHEPE Melatonin 6 mg 09/20/20 20:56 Melatonin 3 Mg Tablet PO BEDTIME PRN Insomnia Multivitamins 1 tab 09/21/20 09:00 09/21/20 08:58 B-Complex With Vitamin C Tablet PO 1 tab DAILY [facility] Administration Oxcarbazepine 150 mg 09/21/20 09:00 09/21/20 08:58 Oxcarbazepine 150 Mg Tablet PO 150 mg TID [facility]PE Administration Phenobarbital 45 mg 09/21/20 21:00 Phenobarbital 15 Mg Tablet PO 09/23/20 09:01 BID [facility] Protocol Phenobarbital 30 mg 09/23/20 21:00 Phenobarbital 30 Mg Tablet PO 09/25/20 09:01 BID [facility] Protocol Phenobarbital 30 mg 09/26/20 09:00 Phenobarbital 30 Mg Tablet PO 09/27/20 09:01 DAILY [facility] Protocol Phenobarbital Sodium 164 mg 09/21/20 11:00 Phenobarbital Sodium 130 Mg/Ml Vial IM 09/21/20 14:01 Q3H [facility] Protocol Potassium Chloride 40 meq 09/21/20 11:13 Potassium Chloride Er 20 Meq Tab.Er.Prt PO 09/21/20 11:14 ONCE ONE Senna 17.2 mg 09/20/20 20:56 Sennosides 8.6 Mg Tablet PO BEDTIME PRN Constipation Sodium Chloride 3 ml 09/21/20 00:00 09/21/20 09:00 0.9 % Sodium Chloride Flush 3 Ml Syringe IVFLUSH 3 ml QSHIFT [facility] Administration Thiamine HCl 100 mg 09/21/20 09:00 09/21/20 08:58 Thiamine Hcl 100 Mg Tablet PO 100 mg DAILY [facility] Administration Labs CBC & Chem 7: 09/21/20 05:32 09/21/20 05:32 Labs: Laboratory Results - last 24 hr 09/20/20 09/20/20 09/20/20 17:24 18:44 18:44 WBC RBC Hgb Hct MCV MCH MCHC RDW Plt Count MPV Immature Gran % (Auto) Neut % (Auto) Lymph % (Auto) [place] % (Auto) Eos % (Auto) Baso % (Auto) Lymph # (Auto) [place] # (Auto) Eos # (Auto) Baso # (Auto) Abs Immat Gran (auto) Absolute Neuts (auto) Absolute Nucleated RBC Nucleated RBC % (auto) Smear Tech's Comments PT 10.6 INR 0.9 APTT 29.1 Coag Specimen Comment DELAY Sodium Potassium Chloride Carbon Dioxide Anion Gap BUN Creatinine Estim Creat Clear Calc Estimated GFR Random Glucose Osmolality Calcium Magnesium Total Bilirubin Direct Bilirubin AST ALT Alkaline Phosphatase Ammonia 31 Troponin I High Sens 31.8 Total Protein Albumin Lipase Urine Color Urine Appearance Urine pH Ur Specific [place] Urine Protein Urine Glucose (UA) Urine Ketones Urine Blood Urine Nitrite Ur Leukocyte Esterase Urine RBC Urine WBC Ur Squamous Epith Cells Urine Bacteria Hyaline Casts Urine Osmolality Ur Random Sodium Ur Random Potassium Ur Random Chloride Urine Creatinine Urine Opiates Screen Ur Barbiturates Screen Ur Phencyclidine Scrn Ur Amphetamines Screen U Benzodiazepines Scrn Urine Cocaine Screen U Marijuana (THC) Screen Ethyl Alcohol COVID-19 ([facility]) COVID-19 Clin Com 09/20/20 09/20/20 09/20/20 18:45 19:45 19:45 WBC 9.0 RBC 3.49 L Hgb 12.2 L Hct 31.3 L MCV 89.7 MCH 35.0 H MCHC 39.0 H RDW 12.7 Plt Count 150 L MPV 8.8 L Immature Gran % (Auto) 0.6 H Neut % (Auto) 85.2 H Lymph % (Auto) 5.3 L [place] % (Auto) 8.6 Eos % (Auto) 0.2 Baso % (Auto) 0.1 Lymph # (Auto) 0.5 L [place] # (Auto) 0.8 Eos # (Auto) 0.0 Baso # (Auto) 0.0 Abs Immat Gran (auto) 0.05 H Absolute Neuts (auto) 7.7 Absolute Nucleated RBC 0.000 Nucleated RBC % (auto) 0.0 Smear Tech's Comments VERIFIED PT INR APTT Coag Specimen Comment Sodium 123 L Potassium 2.4 L* Chloride 70 L Carbon Dioxide 34 H Anion Gap 21 H BUN 12 Creatinine 1.01 Estim Creat Clear Calc 77.1 Estimated GFR > 60 Random Glucose 95 Osmolality Calcium 8.7 Magnesium 1.7 Total Bilirubin 1.1 H Direct Bilirubin 0.7 H AST 28 ALT 14 Alkaline Phosphatase 123 H Ammonia Troponin I High Sens Total Protein 6.5 Albumin 3.8 Lipase 66 Urine Color Urine Appearance Urine pH Ur Specific [place] Urine Protein Urine Glucose (UA) Urine Ketones Urine Blood Urine Nitrite Ur Leukocyte Esterase Urine RBC Urine WBC Ur Squamous Epith Cells Urine Bacteria Hyaline Casts Urine Osmolality Ur Random Sodium Ur Random Potassium Ur Random Chloride Urine Creatinine Urine Opiates Screen Ur Barbiturates Screen Ur Phencyclidine Scrn Ur Amphetamines Screen U Benzodiazepines Scrn Urine Cocaine Screen U Marijuana (THC) Screen Ethyl Alcohol < 10 COVID-19 ([facility]) COVID-19 [employer] 09/20/20 09/20/20 09/20/20 19:45 21:17 21:33 WBC RBC Hgb Hct MCV MCH MCHC RDW Plt Count MPV Immature Gran % (Auto) Neut % (Auto) Lymph % (Auto) [place] % (Auto) Eos % (Auto) Baso % (Auto) Lymph # (Auto) [place] # (Auto) Eos # (Auto) Baso # (Auto) Abs Immat Gran (auto) Absolute Neuts (auto) Absolute Nucleated RBC Nucleated RBC % (auto) Smear Tech's Comments PT INR APTT Coag Specimen Comment Sodium Potassium Chloride Carbon Dioxide Anion Gap BUN Creatinine Estim Creat Clear Calc Estimated GFR Random Glucose Osmolality 248 L Calcium Magnesium Total Bilirubin Direct Bilirubin AST ALT Alkaline Phosphatase Ammonia Troponin I High Sens 37.0 H* Total Protein Albumin Lipase Urine Color Urine Appearance Urine pH Ur Specific [place] Urine Protein Urine Glucose (UA) Urine Ketones Urine Blood Urine Nitrite Ur Leukocyte Esterase Urine RBC Urine WBC Ur Squamous Epith Cells Urine Bacteria Hyaline Casts Urine Osmolality Ur Random Sodium Ur Random Potassium Ur Random Chloride Urine Creatinine Urine Opiates Screen Ur Barbiturates Screen Ur Phencyclidine Scrn Ur Amphetamines Screen U Benzodiazepines Scrn Urine Cocaine Screen U Marijuana (THC) Screen Ethyl Alcohol COVID-19 ([facility]) Negative COVID-19 [employer] See Note 09/20/20 09/21/20 09/21/20 21:33 01:58 01:58 WBC RBC Hgb Hct MCV MCH MCHC RDW Plt Count MPV Immature Gran % (Auto) Neut % (Auto) Lymph % (Auto) [place] % (Auto) Eos % (Auto) Baso % (Auto) Lymph # (Auto) [place] # (Auto) Eos # (Auto) Baso # (Auto) Abs Immat Gran (auto) Absolute Neuts (auto) Absolute Nucleated RBC Nucleated RBC % (auto) Smear Tech's Comments PT INR APTT Coag Specimen Comment Sodium 123 L Potassium 2.5 L* Chloride 69 L Carbon Dioxide 36 H Anion Gap 21 H BUN 11 Creatinine 0.97 Estim Creat Clear Calc 80.3 Estimated GFR > 60 Random Glucose 95 Osmolality Calcium 8.8 Magnesium Total Bilirubin Direct Bilirubin AST ALT Alkaline Phosphatase Ammonia Troponin I High Sens Total Protein Albumin Lipase Urine Color YELLOW Urine Appearance CLEAR Urine pH 7.0 Ur Specific [place] 1.015 Urine Protein 2+ H Urine Glucose (UA) NEG Urine Ketones 15 Urine Blood TRACE Urine Nitrite NEG Ur Leukocyte Esterase NEG Urine RBC 1-4 Urine WBC 1-4 Ur Squamous Epith Cells 1+ Urine Bacteria 1+ Hyaline Casts 1-4 Urine Osmolality Ur Random Sodium Ur Random Potassium Ur Random Chloride Urine Creatinine Urine Opiates Screen Not Detected Ur Barbiturates Screen Not Detected Ur Phencyclidine Scrn Not Detected Ur Amphetamines Screen Not Detected U Benzodiazepines Scrn Not Detected Urine Cocaine Screen Not Detected U Marijuana (THC) Screen Not Detected Ethyl Alcohol COVID-19 ([facility]) COVID-19 [employer] Com 09/21/20 09/21/20 09/21/20 01:58 01:58 05:32 WBC 8.3 RBC 3.36 L Hgb 11.6 L Hct 30.7 L MCV 91.4 MCH 34.5 H MCHC 37.8 H RDW 12.5 Plt Count 142 L MPV 8.6 L Immature Gran % (Auto) 0.5 H Neut % (Auto) 79.1 H Lymph % (Auto) 8.3 L [place] % (Auto) 11.0 Eos % (Auto) 0.7 Baso % (Auto) 0.4 Lymph # (Auto) 0.7 L [place] # (Auto) 0.9 Eos # (Auto) 0.1 Baso # (Auto) 0.0 Abs Immat Gran (auto) 0.04 H Absolute Neuts (auto) 6.6 Absolute Nucleated RBC 0.000 Nucleated RBC % (auto) 0.0 Smear Tech's Comments VERIFIED PT INR APTT Coag Specimen Comment Sodium Potassium Chloride Carbon Dioxide Anion Gap BUN Creatinine Estim Creat Clear Calc Estimated GFR Random Glucose Osmolality Calcium Magnesium Total Bilirubin Direct Bilirubin AST ALT Alkaline Phosphatase Ammonia Troponin I High Sens Total Protein Albumin Lipase Urine Color Urine Appearance Urine pH Ur Specific [place] Urine Protein Urine Glucose (UA) Urine Ketones Urine Blood Urine Nitrite Ur Leukocyte Esterase Urine RBC Urine WBC Ur Squamous Epith Cells Urine Bacteria Hyaline Casts Urine Osmolality 245 L Ur Random Sodium 52.0 Ur Random Potassium 28.5 Ur Random Chloride 66.0 Urine Creatinine 20.59 Urine Opiates Screen Ur Barbiturates Screen Ur Phencyclidine Scrn Ur Amphetamines Screen U Benzodiazepines Scrn Urine Cocaine Screen U Marijuana (THC) Screen Ethyl Alcohol COVID-19 ([facility]) COVID-19 Clin Com 09/21/20 05:32 WBC RBC Hgb Hct MCV MCH MCHC RDW Plt Count MPV Immature Gran % (Auto) Neut % (Auto) Lymph % (Auto) [place] % (Auto) Eos % (Auto) Baso % (Auto) Lymph # (Auto) [place] # (Auto) Eos # (Auto) Baso # (Auto) Abs Immat Gran (auto) Absolute Neuts (auto) Absolute Nucleated RBC Nucleated RBC % (auto) Smear Tech's Comments PT INR APTT Coag Specimen Comment Sodium 125 L Potassium 2.8 L Chloride 75 L Carbon Dioxide 37 H Anion Gap 16 BUN 10 Creatinine 0.89 Estim Creat Clear Calc 87.5 Estimated GFR > 60 Random Glucose 108 Osmolality Calcium 8.7 Magnesium Total Bilirubin Direct Bilirubin AST ALT Alkaline Phosphatase Ammonia Troponin I High Sens Total Protein Albumin Lipase Urine Color Urine Appearance Urine pH Ur Specific [place] Urine Protein Urine Glucose (UA) Urine Ketones Urine Blood Urine Nitrite Ur Leukocyte Esterase Urine RBC Urine WBC Ur Squamous Epith Cells Urine Bacteria Hyaline Casts Urine Osmolality Ur Random Sodium Ur Random Potassium Ur Random Chloride Urine Creatinine Urine Opiates Screen Ur Barbiturates Screen Ur Phencyclidine Scrn Ur Amphetamines Screen U Benzodiazepines Scrn Urine Cocaine Screen U Marijuana (THC) Screen Ethyl Alcohol COVID-19 ([facility]) COVID-19 Clin Com Quality Stroke Does the patient have a stroke diagnosis?: No VTE Prior VTE?: No VTE Risk Level:: Medical - moderate - high VTE Device Contraindication: Treatment Not Indicated VTE Drug Contraindication: N/A - Med Ordered Assessment and Plan (1) Seizure disorder: Status: Acute Assessment and Plan: 60-year-old male with a past medical history of alcohol abuse, COPD, depression presented to the hospital with a chief complaint of question seizure at home Breakthrough seizure possibly due to alcohol dependence with withdrawal phenobarb Trileptal neuro eval hyponatremia beer potomania, versus SIADH from antiepileptics, urine studies were after IVF fluid restrict, monitor nephro eval hypokalemia replace and monitor urine and stool incontinence chronic, no saddle anasthesia or weakness HTN amlodipine increased to 10mg daily COPD Stable HCV outpatient follow up
[2020-09-21] MEDS: PHENobarbitaL sodium 130 MG/ML VIAL 164 MG IM ×2 (10:59→13:56)
[2020-09-21] MEDS: Potassium Chloride ER 20 MEQ TAB.ER.PRT 40 MEQ PO (11:02)
[2020-09-21] MEDS: PHENobarbitaL 15 MG TABLET 45 MG PO (21:27)
[2020-09-22] VITALS (7 sets, daily range): BP systolic 150–162; BP diastolic 74–96; PULSE 68–83; RESP 14–20; TEMP 36.4–37; O2SAT 94–99
[2020-09-22 04:59] LABS: Hematocrit 28.4 % (42-52); Hemoglobin 10.7 g/dl (14.0-18.0); Mean Corpuscular Hemoglobin 34.6 pg (27.0-33.0); Mean Corpuscular Volume 91.9 fL (80-98); Mean Platelet Volume 8.9 fL (9.4-12.4); Platelet Count 146 X10*3/uL (160-400); Red Blood Count 3.09 X10*6/uL (4.60-5.80); Red Cell Distribution Width 12.6 % (11.0-16.0)
[2020-09-22 05:00] LABS: Mean Corpuscular HGB Conc 37.7 g/dl (31.0-36.0)
[2020-09-22 05:39] LABS: Anion Gap 16 (12-20); Blood Urea Nitrogen 14 mg/dL (9-16); Calcium 8.3 mg/dL (8.4-10.2); Carbon Dioxide 33 mmol/L (22-29); Chloride 77 mmol/L (96-108); Creatinine Clr Calc Pharmacy 92.7; Estimated Glomerular Filt Rate > 60; Glucose Fasting 103 mg/dL (60-99); Magnesium 1.5 mg/dL (1.6-2.6); Potassium 2.4 mmol/L (3.3-5.1); Sodium 124 mmol/L (135-145)
[2020-09-22] MEDS: Potassium Chloride Packet 20 MEQ PACKET 40 MEQ PO ×2 (06:14→09:41)
[2020-09-22] MEDS: Magnesium Sulfate/H2O 2 GM/50 ML PIGGYBACK IV (06:14)
--- NOTE | 2020-09-22 06:19 | PC.NURSE ---
2g iv mag sulfate infusing as ordered and kcl 40meq po given, pt awoke easily and drank liquid kcl with ease
--- NOTE | 2020-09-22 07:57 | PM.CNNEP ---
History of Present Illness Reason for Consult Consult date: 09/22/20 Chief Complaint Chief complaint: Hypokalemia Review of Systems Review of Systems Constitutional: No Fever, No Chills Cardiovascular: No Chest Pain, No SOB, No Edema, No Palpitations Respiratory: No Cough, No Dyspnea Gastrointestinal: No Nausea, No Vomiting, No Diarrhea, No Constipation, No Abdominal pain Genitourinary: No Dysuria, No Urinary Frequency, No Hematuria, + Urinary Incontinence Musculoskeletal: No joint pain, No Myalgias, No Joint Swelling Skin: No Skin Lesions, No rash Neuro: No Weakness, No Loss of Consciousness, No Headache Psych: No Anxiety/Panic, No Depression, No SI/HI Yes all other systems are reviewed and are negative Cardiovascular: Reports no additional cardiovascular complaints Respiratory: Reports no additional respiratory complaints Denies Abnormal speech present [facility] Past Medical History Medical History (Updated 09/21/20 @ 07:10 by Pedro Luis North MD) COPD (chronic obstructive pulmonary disease) H/O ETOH abuse HCV (hepatitis C virus) Heart disease Seizure disorder Surgical History Surgical History H/O left wrist surgery Social History Social History (Updated 09/21/20 @ 07:11 by Pedro Luis North MD) Household Members: Significant Other Housing: Apartment Alcohol intake: current Patient Tobacco Use Status: Current everyday Tobacco user Tobacco use type: Cigarette Cigarette Packs Per Day: 0.5 Cigarettes Per Day: 10.0 Smoked in Last 30 Days: Yes Patient Interested in Nicotine Replacement: No Use of substances other than those prescribed or required for medical reasons: No Have you been hit, kicked, punched, or otherwise hurt by someone within the past year? If so, by whom?: No Do you feel safe in your current relationship?: Yes Is there a partner from a previous relationship who is making you feel unsafe now?: No Are you made to feel afraid or neglected: No Advance Directives: No Advance Directives Information Provided: No Do you have thoughts of harming others: None Do you have a plan to hurt others: No Plan Recently lost weight without trying: No Nutrition Risks: No Nutritional Risk Meds Allergies Allergy/AdvReac Type Severity Reaction Status Date / Time acetaminophen [From PERCOCET] Allergy Mild Rash Verified 09/21/20 17:29 oxycodone [From PERCOCET] Allergy Mild Rash Verified 09/21/20 17:29 Penicillins [PENICILLINS] Allergy Mild Rash Verified 09/21/20 17:29 Active Medications: Current Medications Generic Name Dose Route Start Last Admin Trade Name Debbie PRN Reason Stop Dose Admin Amlodipine Besylate 10 mg 09/21/20 09:00 09/21/20 08:59 Amlodipine Besylate 5 Mg Tablet PO 10 mg DAILY [facility] Administration Protocol Aspirin 81 mg 09/21/20 09:00 09/21/20 08:58 Aspirin Enteric Coated 81 Mg Tablet. PO 81 mg DAILY [facility] Administration Enoxaparin Sodium 40 mg 09/21/20 08:00 09/21/20 08:58 Enoxaparin Sodium 40 Mg/0.4 Ml Syringe SUBCUT 40 mg Q24H [facility] Administration Famotidine 20 mg 09/20/20 21:00 09/21/20 21:28 Famotidine 20 Mg Tablet PO 20 mg BID [facility] Administration Fluoxetine HCl 40 mg 09/21/20 09:00 09/21/20 08:58 Fluoxetine Hcl 20 Mg Capsule PO 40 mg DAILY [facility] Administration Folic Acid 1 mg 09/21/20 09:00 09/21/20 08:58 Folic Acid 1 Mg Tablet PO 09/24/20 08:59 1 mg DAILY [facility] Administration Labetalol HCl 10 mg 09/21/20 04:54 09/21/20 05:26 Labetalol Hcl 100 Mg/20 Ml Vial IVPUSH 10 mg Q4H PRN Administration BP>180/90 Medication 1 each 09/21/20 08:00 No Benzodiazepines MISCELLANE DAILY [facility] Melatonin 6 mg 09/20/20 20:56 Melatonin 3 Mg Tablet PO BEDTIME PRN Insomnia Multivitamins 1 tab 09/21/20 09:00 09/21/20 08:58 B-Complex With Vitamin C Tablet PO 1 tab DAILY [facility] Administration Oxcarbazepine 150 mg 09/21/20 09:00 09/21/20 21:28 Oxcarbazepine 150 Mg Tablet PO 150 mg TID [facility] Administration Phenobarbital 45 mg 09/21/20 21:00 09/21/20 21:27 Phenobarbital 15 Mg Tablet PO 09/23/20 09:01 45 mg BID [facility] Administration Protocol Phenobarbital 30 mg 09/23/20 21:00 Phenobarbital 30 Mg Tablet PO 09/25/20 09:01 BID [facility] Protocol Phenobarbital 30 mg 09/26/20 09:00 Phenobarbital 30 Mg Tablet PO 09/27/20 09:01 DAILY [facility] Protocol Senna 17.2 mg 09/20/20 20:56 Sennosides 8.6 Mg Tablet PO BEDTIME PRN Constipation Sodium Chloride 3 ml 09/21/20 00:00 09/21/20 21:28 0.9 % Sodium Chloride Flush 3 Ml Syringe IVFLUSH 3 ml QSHIFT [facility] Administration Thiamine HCl 100 mg 09/21/20 09:00 09/21/20 08:58 Thiamine Hcl 100 Mg Tablet PO 100 mg DAILY [facility] Administration Home Medications Medication Instructions Recorded Confirmed Last Taken Type aspirin 1 tab PO DAILY 09/20/20 09/20/20 Unknown History aspirin 1 tab PO DAILY 09/20/20 09/20/20 Unknown History fluoxetine 2 cap PO QAM 09/20/20 09/20/20 Unknown History folic acid 1 tab PO ONCE 09/20/20 09/20/20 Unknown History meloxicam 1 tab PO BID 09/20/20 09/20/20 Unknown History oxcarbazepine 1 tab PO TID 09/20/20 09/20/20 Unknown History thiamine HCl (vitamin B1) [Vitamin 1 tab PO DAILY 09/20/20 09/20/20 Unknown History B-1] Physical Exam Vital Signs: Last Vital Signs Temp 97.6 F 09/22/20 07:24 Pulse 75 09/22/20 07:24 Resp 18 09/22/20 07:24 BP 150/90 H 09/22/20 07:24 Pulse Ox 98 09/22/20 07:24 Body Mass Index 26.1 Const Other: poor hygiene/incontinent of urine General: poor hygiene Orientation/consciousness: patient oriented x3 Limitations: no limitations [facility] Head: Yes normal to inspection and Yes atraumatic Ears: hearing grossly normal bilaterally General nose exam: Normal external nose present Face and sinus: Yes normal facial exam Eyes General: appearance normal, both eyes and all related structures Pupils: Equal, round and reactive pupils present EOM: EOMs intact bilaterally Neck Neck: Yes normal visual inspection and Yes no meningeal signs Resp Effort & Inspection: normal respiratory effort Auscultation: clear to auscultation bilaterally, no rales and no wheezes Cardio Rate: regular rate Heart sounds: S1 normal heart sound present and S2 normal heart sound present GI Inspection: Yes normal to inspection Palpation (GI): Soft to palpation, nontender, no guarding and not rigid Skin Rashes: no rashes Wounds: no wounds Neuro General: patient oriented x3, tone normal, moves all extremities, no meningeal signs, no focal motor deficits and CN's II-XI intact bilaterally Cranial nerves: Yes Equal, round and reactive pupils present Speech: No Abnormal speech present Gait exam (Neuro): Normal gait present Motor exam (neuro): 5/5 motor strength present throughout Extrem General: Yes normal to inspection Results Lab Results Result Diagrams: 09/22/20 04:30 09/22/20 04:30 Lab results: Chemistry 09/20/20 09/20/20 09/21/20 19:45 21:33 05:32 Sodium 123 L 123 L 125 L Potassium 2.4 L* 2.5 L* 2.8 L Carbon Dioxide 34 H 36 H 37 H BUN 12 11 10 Creatinine 1.01 0.97 0.89 Calcium 8.7 8.8 8.7 09/22/20 04:30 Sodium 124 L Potassium 2.4 L* Carbon Dioxide 33 H BUN 14 Creatinine 0.84 Calcium 8.3 L Hematology 09/20/20 09/21/20 09/22/20 19:45 05:32 04:30 WBC 9.0 8.3 8.0 Hgb 12.2 L 11.6 L 10.7 L Plt Count 150 L 142 L 146 L Urinalysis 09/21/20 01:58 Urine Color YELLOW Urine Appearance CLEAR Urine pH 7.0 Ur Specific [place] 1.015 Urine Protein 2+ H Urine Glucose (UA) NEG Urine Ketones 15 Urine Blood TRACE Urine Nitrite NEG Ur Leukocyte Esterase NEG Urine RBC 1-4 Urine WBC 1-4 Ur Squamous Epith Cells 1+ Hyaline Casts 1-4 Urine Studies 09/21/20 09/21/20 01:58 01:58 Urine Osmolality 245 L Urine Creatinine 20.59 Assessment and Plan (1) Seizure disorder: Status: Acute 5 60-year-old male with a past medical history of COPD, ETOH abuse, heart disease, seizure, BIBA for ETOH abuse, diaphoresis, and urinary incontinence. Reports last drink earlier this morning. hyponatremia likely vol depletion but decreased solute load ('beer potomania ) possible. r/o liver and heart failure would repeat urine studies get FENA and urine K give NS with aggressive KCL replacement hypokalemia replace and monitor HTN amlodipine increased to 10mg daily Procedures Date of Service Date of Service: 09/22/20
[2020-09-22] MEDS: PHENobarbitaL 15 MG TABLET 45 MG PO ×2 (09:41→20:57)
[2020-09-22] MEDS: OXcarbazepine 150 MG TABLET PO ×3 (09:42→20:57)
[2020-09-22] MEDS: Enoxaparin Sodium 40 MG/0.4 ML SYRINGE SUBCUT (09:42)
[2020-09-22] MEDS: Thiamine HCL 100 MG TABLET PO (09:42)
[2020-09-22] MEDS: Aspirin Enteric Coated 81 MG TABLET.DR PO (09:42)
[2020-09-22] MEDS: Folic Acid 1 MG TABLET PO (09:42)
[2020-09-22] MEDS: FLUoxetine HCl 20 MG CAPSULE 40 MG PO (09:42)
[2020-09-22] MEDS: Famotidine 20 MG TABLET PO ×2 (09:42→20:57)
[2020-09-22] MEDS: amLODIPine Besylate 5 MG TABLET 10 MG PO (09:42)
[2020-09-22] MEDS: 0.9 % Sodium Chloride Flush 3 ML SYRINGE IVFLUSH ×3 (09:43→20:57)
--- NOTE | 2020-09-22 10:05 | HO.PM.IMPN ---
Subjective Subjective Date of Service: 09/22/20 Interval History: weakness Cardiovascular Cardiovascular: Reports no additional cardiovascular complaints Respiratory Respiratory: Reports no additional respiratory complaints Physical Exam Vital Signs: Vital Signs: Last Vital Signs Temp 97.6 F 09/22/20 07:24 Pulse 75 09/22/20 09:42 Resp 18 09/22/20 07:24 BP 150/90 H 09/22/20 09:42 Pulse Ox 98 09/22/20 07:24 Body Mass Index 26.1 General: AO X 3, no acute distress Resp: CTA bilateral CVS: S1,S2,RRR GI: soft, non tender, non distended Neuro: motor grossly intact Psych: appropriate affect Objective Data Current Medications Generic Name Dose Route Start Last Admin Trade Name Freq PRN Reason Stop Dose Admin Amlodipine Besylate 10 mg 09/21/20 09:00 09/22/20 09:42 Amlodipine Besylate 5 Mg Tablet PO 10 mg DAILY [facility] Administration Protocol Aspirin 81 mg 09/21/20 09:00 09/22/20 09:42 Aspirin Enteric Coated 81 Mg Tablet. PO 81 mg DAILY [facility] Administration Enoxaparin Sodium 40 mg 09/21/20 08:00 09/22/20 09:42 Enoxaparin Sodium 40 Mg/0.4 Ml Syringe SUBCUT 40 mg Q24H [facility] Administration Famotidine 20 mg 09/20/20 21:00 09/22/20 09:42 Famotidine 20 Mg Tablet PO 20 mg BID [facility] Administration Fluoxetine HCl 40 mg 09/21/20 09:00 09/22/20 09:42 Fluoxetine Hcl 20 Mg Capsule PO 40 mg DAILY [facility] Administration Folic Acid 1 mg 09/21/20 09:00 09/22/20 09:42 Folic Acid 1 Mg Tablet PO 09/24/20 08:59 1 mg DAILY [facility] Administration Labetalol HCl 10 mg 09/21/20 04:54 09/21/20 05:26 Labetalol Hcl 100 Mg/20 Ml Vial IVPUSH 10 mg Q4H PRN Administration BP>180/90 Medication 1 each 09/21/20 08:00 No Benzodiazepines MISCELLANE DAILY [facility] Melatonin 6 mg 09/20/20 20:56 Melatonin 3 Mg Tablet PO BEDTIME PRN Insomnia Multivitamins 1 tab 09/21/20 09:00 09/22/20 09:42 B-Complex With Vitamin C Tablet PO 1 tab DAILY [facility] Administration Oxcarbazepine 150 mg 09/21/20 09:00 09/22/20 09:42 Oxcarbazepine 150 Mg Tablet PO 150 mg TID [facility] Administration Phenobarbital 45 mg 09/21/20 21:00 09/22/20 09:41 Phenobarbital 15 Mg Tablet PO 09/23/20 09:01 45 mg BID [facility] Administration Protocol Phenobarbital 30 mg 09/23/20 21:00 Phenobarbital 30 Mg Tablet PO 09/25/20 09:01 BID [facility] Protocol Phenobarbital 30 mg 09/26/20 09:00 Phenobarbital 30 Mg Tablet PO 09/27/20 09:01 DAILY [facility] Protocol Senna 17.2 mg 09/20/20 20:56 Sennosides 8.6 Mg Tablet PO BEDTIME PRN Constipation Sodium Chloride 3 ml 09/21/20 00:00 09/22/20 09:43 0.9 % Sodium Chloride Flush 3 Ml Syringe IVFLUSH 3 ml QSHIFT [facility] Administration Thiamine HCl 100 mg 09/21/20 09:00 09/22/20 09:42 Thiamine Hcl 100 Mg Tablet PO 100 mg DAILY [facility] Administration Labs CBC & Chem 7: 09/22/20 04:30 09/22/20 04:30 Labs: Laboratory Results - last 24 hr 09/22/20 09/22/20 04:30 04:30 WBC 8.0 RBC 3.09 L Hgb 10.7 L Hct 28.4 L MCV 91.9 MCH 34.6 H MCHC 37.7 H RDW 12.6 Plt Count 146 L MPV 8.9 L Absolute Nucleated RBC 0.000 Nucleated RBC % (auto) 0.0 Sodium 124 L Potassium 2.4 L* Chloride 77 L Carbon Dioxide 33 H Anion Gap 16 BUN 14 Creatinine 0.84 Estim Creat Clear Calc 92.7 Estimated GFR > 60 Fasting Glucose 103 H Calcium 8.3 L Magnesium 1.5 L Quality Stroke Does the patient have a stroke diagnosis?: No VTE Prior VTE?: No VTE Risk Level:: Medical - moderate - high VTE Device Contraindication: Treatment Not Indicated VTE Drug Contraindication: N/A - Med Ordered Assessment and Plan (1) Seizure disorder: Status: Acute Assessment and Plan: 60-year-old male with a past medical history of alcohol abuse, COPD, depression presented to the hospital with a chief complaint of question seizure at home Breakthrough seizure possibly due to alcohol dependence with withdrawal continue phenobarb Trileptal neuro eval hyponatremia beer potomania, versus SIADH from antiepileptics, urine studies were after IVF fluid restrict, will add salt tablets, monitor hypokalemia and hypomagnesemia replace and monitor urine and stool incontinence chronic, no saddle anasthesia or weakness HTN amlodipine increased to 10mg daily COPD Stable HCV outpatient follow up
[2020-09-22] MEDS: Sodium Chloride Tab 1 GM TABLET PO ×3 (11:25→20:57)
--- NOTE | 2020-09-22 11:29 | MHC.CM.PN ---
met with pt who explins he has no services prior to admisison he will be seen by care team prior to dc and states he hism own transportaion home
[2020-09-22 12:45] LABS: Anion Gap 14 (12-20); Blood Urea Nitrogen 14 mg/dL (9-16); Calcium 8.1 mg/dL (8.4-10.2); Carbon Dioxide 31 mmol/L (22-29); Chloride 82 mmol/L (96-108); Creatinine Clr Calc Pharmacy 89.5; Estimated Glomerular Filt Rate > 60; Glucose Random 108 mg/dL (60-115); Magnesium 1.9 mg/dL (1.6-2.6); Potassium 3.6 mmol/L (3.3-5.1); Sodium 123 mmol/L (135-145)
[2020-09-22 15:14] LABS: Anion Gap 14 (12-20); Blood Urea Nitrogen 13 mg/dL (9-16); Calcium 8.6 mg/dL (8.4-10.2); Carbon Dioxide 31 mmol/L (22-29); Chloride 82 mmol/L (96-108); Creatinine Clr Calc Pharmacy 90.5; Estimated Glomerular Filt Rate > 60; Glucose Random 113 mg/dL (60-115); Potassium 3.4 mmol/L (3.3-5.1); Sodium 124 mmol/L (135-145)
[2020-09-22 15:37] LABS: Potassium Urine Random 46.1 mmol/L
[2020-09-22 15:43] LABS: Osmolality Urine 310 mosm/kg (373-1093)
[2020-09-23] VITALS (7 sets, daily range): BP systolic 135–170; BP diastolic 76–102; PULSE 79–85; RESP 18–20; TEMP 36.4–37.4; O2SAT 96–99
[2020-09-23 04:46] LABS: Hematocrit 27.9 % (42-52); Hemoglobin 10.3 g/dl (14.0-18.0); Mean Corpuscular HGB Conc 36.9 g/dl (31.0-36.0); Mean Corpuscular Hemoglobin 34.2 pg (27.0-33.0); Mean Corpuscular Volume 92.7 fL (80-98); Mean Platelet Volume 9.2 fL (9.4-12.4); Platelet Count 151 X10*3/uL (160-400); Red Blood Count 3.01 X10*6/uL (4.60-5.80); Red Cell Distribution Width 12.7 % (11.0-16.0); White Blood Count 8.6 X10*3/uL (4.8-10.8)
[2020-09-23 05:16] LABS: Anion Gap 16 (12-20); Blood Urea Nitrogen 13 mg/dL (9-16); Carbon Dioxide 31 mmol/L (22-29); Chloride 82 mmol/L (96-108); Creatinine Clr Calc Pharmacy 98.6; Estimated Glomerular Filt Rate > 60; Glucose Fasting 108 mg/dL (60-99); Magnesium 1.5 mg/dL (1.6-2.6); Potassium 2.8 mmol/L (3.3-5.1); Sodium 126 mmol/L (135-145)
[2020-09-23] MEDS: OXcarbazepine 150 MG TABLET PO ×3 (08:07→20:16)
[2020-09-23] MEDS: Thiamine HCL 100 MG TABLET PO (08:07)
[2020-09-23] MEDS: Potassium Chloride ER 20 MEQ TAB.ER.PRT 40 MEQ PO (08:07)
[2020-09-23] MEDS: Enoxaparin Sodium 40 MG/0.4 ML SYRINGE SUBCUT (08:07)
[2020-09-23] MEDS: Magnesium Oxide 400 MG TABLET PO ×3 (08:07→20:16)
[2020-09-23] MEDS: FLUoxetine HCl 20 MG CAPSULE 40 MG PO (08:07)
[2020-09-23] MEDS: PHENobarbitaL 15 MG TABLET 45 MG PO (08:08)
[2020-09-23] MEDS: Folic Acid 1 MG TABLET PO (08:08)
[2020-09-23] MEDS: Aspirin Enteric Coated 81 MG TABLET.DR PO (08:08)
[2020-09-23] MEDS: amLODIPine Besylate 5 MG TABLET 10 MG PO (08:08)
[2020-09-23] MEDS: 0.9 % Sodium Chloride Flush 3 ML SYRINGE IVFLUSH ×2 (08:08→23:52)
[2020-09-23] MEDS: Famotidine 20 MG TABLET PO ×2 (08:08→20:16)
[2020-09-23] MEDS: Sodium Chloride Tab 1 GM TABLET PO ×3 (08:11→20:15)
--- NOTE | 2020-09-23 08:55 | PM.PNNEP ---
Subjective Subjective Date of Service: 09/23/20 Interval history: weakness Physical Exam Vital Signs: Vital Signs: Last Vital Signs Temp 98.0 F 09/23/20 07:37 Pulse 79 09/23/20 08:08 Resp 18 09/23/20 07:37 BP 153/88 H 09/23/20 08:08 Pulse Ox 96 09/23/20 07:37 Body Mass Index 26.1 Const: Other: poor hygiene/incontinent of urine General: poor hygiene Orientation/consciousness: patient oriented x3 Limitations: no limitations HENMT: Head: Yes normal to inspection and Yes atraumatic Ears: hearing grossly normal bilaterally General nose exam: Normal external nose present Face and sinus: Yes normal facial exam Eyes: General: appearance normal, both eyes and all related structures Pupils: Equal, round and reactive pupils present EOM: EOMs intact bilaterally Neck: Neck: Yes normal visual inspection and Yes no meningeal signs Resp: Effort & Inspection: normal respiratory effort Auscultation: clear to auscultation bilaterally, no rales and no wheezes Cardio: Rate: regular rate Heart sounds: S1 normal heart sound present and S2 normal heart sound present GI: Inspection: Yes normal to inspection Palpation (GI): Soft to palpation, nontender, no guarding and not rigid Skin: Rashes: no rashes Wounds: no wounds Neuro: General: patient oriented x3, tone normal, moves all extremities, no meningeal signs, no focal motor deficits and CN's II-XI intact bilaterally Cranial nerves: Yes Equal, round and reactive pupils present Speech: No Abnormal speech present Gait exam (Neuro): Normal gait present Motor exam (neuro): 5/5 motor strength present throughout Extrem: General: Yes normal to inspection Objective Data Labs CBC & Chem 7: 09/23/20 04:25 09/23/20 04:25 Labs: Laboratory Results - last 24 hr 09/22/20 09/22/20 09/22/20 12:06 14:17 14:54 WBC RBC Hgb Hct MCV MCH MCHC RDW Plt Count MPV Absolute Nucleated RBC Nucleated RBC % (auto) Sodium 123 L 124 L Potassium 3.6 D 3.4 Chloride 82 L 82 L Carbon Dioxide 31 H 31 H Anion Gap 14 14 BUN 14 13 Creatinine 0.87 0.86 Estim Creat Clear Calc 89.5 90.5 Estimated GFR > 60 > 60 Random Glucose 108 113 Fasting Glucose Calcium 8.1 L 8.6 D Magnesium 1.9 Urine Osmolality Ur Random Sodium 39.0 Ur Random Potassium 46.1 Urine Creatinine 29.30 09/22/20 09/23/20 09/23/20 14:54 04:25 04:25 WBC 8.6 RBC 3.01 L Hgb 10.3 L Hct 27.9 L MCV 92.7 MCH 34.2 H MCHC 36.9 H RDW 12.7 Plt Count 151 L MPV 9.2 L Absolute Nucleated RBC 0.000 Nucleated RBC % (auto) 0.0 Sodium 126 L Potassium 2.8 L Chloride 82 L Carbon Dioxide 31 H Anion Gap 16 BUN 13 Creatinine 0.79 Estim Creat Clear Calc 98.6 Estimated GFR > 60 Random Glucose Fasting Glucose 108 H Calcium 8.0 L D Magnesium 1.5 L Urine Osmolality 310 L Ur Random Sodium Ur Random Potassium Urine Creatinine Assessment & Plan Assessment and plan (1) Seizure disorder: Status: Acute Assessment and Plan: 60-year-old male with a past medical history of alcohol abuse, COPD, depression presented to the hospital with a chief complaint of question seizure at home Breakthrough seizure possibly due to alcohol dependence with withdrawal continue phenobarb Trileptal neuro eval hyponatremia urine studies c/w SIADH but hypokalemia can affect Sna by cell shifts will check adelina cortisol tsh hypokalemia and hypomagnesemia replace more aggressively Procedures Date of Service Date of Service: 09/23/20 Progress Note: Quality Stroke Does the patient have a stroke diagnosis?: No
--- NOTE | 2020-09-23 10:51 | HO.PM.IMPN ---
Subjective Subjective Date of Service: 09/23/20 Interval History: still weak but improving Cardiovascular Cardiovascular: Reports no additional cardiovascular complaints Respiratory Respiratory: Reports no additional respiratory complaints Physical Exam Vital Signs: Vital Signs: Last Vital Signs Temp 98.0 F 09/23/20 07:37 Pulse 79 09/23/20 08:08 Resp 18 09/23/20 07:37 BP 153/88 H 09/23/20 08:08 Pulse Ox 96 09/23/20 07:37 Body Mass Index 26.1 General: AO X 3, no acute distress Resp: CTA bilateral CVS: S1,S2,RRR GI: soft, non tender, non distended Neuro: motor grossly intact Psych: appropriate affect Objective Data Current Medications Generic Name Dose Route Start Last Admin Trade Name Freq PRN Reason Stop Dose Admin Amlodipine Besylate 10 mg 09/21/20 09:00 09/23/20 08:08 Amlodipine Besylate 5 Mg Tablet PO 10 mg DAILY [facility] Administration Protocol Aspirin 81 mg 09/21/20 09:00 09/23/20 08:08 Aspirin Enteric Coated 81 Mg Tablet.Dr PO 81 mg DAILY [facility] Administration Enoxaparin Sodium 40 mg 09/21/20 08:00 09/23/20 08:07 Enoxaparin Sodium 40 Mg/0.4 Ml Syringe SUBCUT 40 mg Q24H [facility] Administration Famotidine 20 mg 09/20/20 21:00 09/23/20 08:08 Famotidine 20 Mg Tablet PO 20 mg BID [facility] Administration Fluoxetine HCl 40 mg 09/21/20 09:00 09/23/20 08:07 Fluoxetine Hcl 20 Mg Capsule PO 40 mg DAILY [facility] Administration Folic Acid 1 mg 09/21/20 09:00 09/23/20 08:08 Folic Acid 1 Mg Tablet PO 09/24/20 08:59 1 mg DAILY [facility] Administration Potassium Chloride/Sodium Chloride 20 meq in 1,000 mls @ 150 mls/hr 09/23/20 10:00 IVCONT .[id number] [facility] Magnesium Sulfate 2 gm in 50 mls @ 25 mls/hr 09/23/20 09:01 Magnesium Sulfate/H2o IV 09/23/20 11:00 NOW STA Labetalol HCl 10 mg 09/21/20 04:54 09/21/20 05:26 Labetalol Hcl 100 Mg/20 Ml Vial IVPUSH 10 mg Q4H PRN Administration BP>180/90 Magnesium Oxide 400 mg 09/23/20 09:00 09/23/20 08:07 Magnesium Oxide 400 Mg Tablet PO 400 mg TID [facility] Administration Medication 1 each 09/21/20 08:00 No Benzodiazepines MISCELLANE DAILY [facility] Melatonin 6 mg 09/20/20 20:56 Melatonin 3 Mg Tablet PO BEDTIME PRN Insomnia Multivitamins 1 tab 09/21/20 09:00 09/23/20 08:07 B-Complex With Vitamin C Tablet PO 1 tab DAILY [facility] Administration Oxcarbazepine 150 mg 09/21/20 09:00 09/23/20 08:07 Oxcarbazepine 150 Mg Tablet PO 150 mg TID [facility] Administration Phenobarbital 30 mg 09/23/20 21:00 Phenobarbital 30 Mg Tablet PO 09/25/20 09:01 BID [facility] Protocol Phenobarbital 30 mg 09/26/20 09:00 Phenobarbital 30 Mg Tablet PO 09/27/20 09:01 DAILY [facility] Protocol Potassium Chloride 20 meq 09/23/20 11:55 Potassium Chloride Er 20 Meq Tab.Er.Prt PO DAILY [facility] Potassium Chloride 40 meq 09/23/20 10:00 Potassium Chloride Packet 20 Meq Packet PO BID [facility] Senna 17.2 mg 09/20/20 20:56 Sennosides 8.6 Mg Tablet PO BEDTIME PRN Constipation Sodium Chloride 3 ml 09/21/20 00:00 09/23/20 08:08 0.9 % Sodium Chloride Flush 3 Ml Syringe IVFLUSH 3 ml QSHIFT [facility] Administration Sodium Chloride 1 gm 09/22/20 10:15 09/23/20 08:11 Sodium Chloride Tab 1 Gm Tablet PO 1 gm TID [facility] Administration Thiamine HCl 100 mg 09/21/20 09:00 09/23/20 08:07 Thiamine Hcl 100 Mg Tablet PO 100 mg DAILY [facility] Administration Labs CBC & Chem 7: 09/23/20 04:25 09/23/20 04:25 Labs: Laboratory Results - last 24 hr 09/22/20 09/22/20 09/22/20 12:06 14:17 14:54 WBC RBC Hgb Hct MCV MCH MCHC RDW Plt Count MPV Absolute Nucleated RBC Nucleated RBC % (auto) Sodium 123 L 124 L Potassium 3.6 D 3.4 Chloride 82 L 82 L Carbon Dioxide 31 H 31 H Anion Gap 14 14 BUN 14 13 Creatinine 0.87 0.86 Estim Creat Clear Calc 89.5 90.5 Estimated GFR > 60 > 60 Random Glucose 108 113 Fasting Glucose Calcium 8.1 L 8.6 D Magnesium 1.9 Urine Osmolality Ur Random Sodium 39.0 Ur Random Potassium 46.1 Urine Creatinine 29.30 09/22/20 09/23/20 09/23/20 14:54 04:25 04:25 WBC 8.6 RBC 3.01 L Hgb 10.3 L Hct 27.9 L MCV 92.7 MCH 34.2 H MCHC 36.9 H RDW 12.7 Plt Count 151 L MPV 9.2 L Absolute Nucleated RBC 0.000 Nucleated RBC % (auto) 0.0 Sodium 126 L Potassium 2.8 L Chloride 82 L Carbon Dioxide 31 H Anion Gap 16 BUN 13 Creatinine 0.79 Estim Creat Clear Calc 98.6 Estimated GFR > 60 Random Glucose Fasting Glucose 108 H Calcium 8.0 L D Magnesium 1.5 L Urine Osmolality 310 L Ur Random Sodium Ur Random Potassium Urine Creatinine Quality Stroke Does the patient have a stroke diagnosis?: No VTE Prior VTE?: No VTE Risk Level:: Medical - moderate - high VTE Device Contraindication: Treatment Not Indicated VTE Drug Contraindication: N/A - Med Ordered Assessment and Plan (1) Seizure disorder: Status: Acute Assessment and Plan: 60-year-old male with a past medical history of alcohol abuse, COPD, depression presented to the hospital with a chief complaint of question seizure at home Breakthrough seizure possibly due to alcohol dependence with withdrawal continue phenobarb Trileptal hyponatremia beer potomania, versus SIADH from antiepileptics, urine studies were after IVF fluid restrict, added salt tablets, monitor nephro following hypokalemia and hypomagnesemia replace and monitor urine and stool incontinence chronic, no saddle anasthesia or weakness HTN amlodipine increased to 10mg daily COPD Stable HCV outpatient follow up
[2020-09-23] MEDS: Magnesium Sulfate/H2O 2 GM/50 ML PIGGYBACK IV (11:04)
[2020-09-23 11:10] LABS: TSH reflex Free T4 2.55 uIU/mL (0.32-4.0)
[2020-09-23] MEDS: Potassium Chloride ER 20 MEQ TAB.ER.PRT PO (11:10)
[2020-09-23] MEDS: Potassium Chloride Packet 20 MEQ PACKET 40 MEQ PO ×2 (11:11→20:17)
--- NOTE | 2020-09-23 14:44 | PC.NURSE ---
Skin/Wound assessment completed. Patient has Stage 2 pressure ulcer on buttocks and Stage 3 pressure ulcer on right posterior thigh. Triad applied to all wounds and Stage 3 was covered with foam dressing. Skin is dry and has scabbed scratches on arms.
[2020-09-23] MEDS: PHENobarbitaL 30 MG TABLET PO (20:15)
--- NOTE | 2020-09-23 23:09 | PM.PNNEP ---
Subjective Subjective Date of Service: 09/23/20 Interval history: still weak but improving Physical Exam Vital Signs: Vital Signs: Last Vital Signs Temp 98.6 F 09/23/20 23:01 Pulse 85 09/23/20 23:01 Resp 18 09/23/20 23:01 BP 160/102 H 09/23/20 23:01 Pulse Ox 98 09/23/20 23:01 Body Mass Index 26.1 Const: Other: poor hygiene/incontinent of urine General: poor hygiene Orientation/consciousness: patient oriented x3 Limitations: no limitations HENMT: Head: Yes normal to inspection and Yes atraumatic Ears: hearing grossly normal bilaterally General nose exam: Normal external nose present Face and sinus: Yes normal facial exam Eyes: General: appearance normal, both eyes and all related structures Pupils: Equal, round and reactive pupils present EOM: EOMs intact bilaterally Neck: Neck: Yes normal visual inspection and Yes no meningeal signs Resp: Effort & Inspection: normal respiratory effort Auscultation: clear to auscultation bilaterally, no rales and no wheezes Cardio: Rate: regular rate Heart sounds: S1 normal heart sound present and S2 normal heart sound present GI: Inspection: Yes normal to inspection Palpation (GI): Soft to palpation, nontender, no guarding and not rigid Skin: Rashes: no rashes Wounds: no wounds Neuro: General: patient oriented x3, tone normal, moves all extremities, no meningeal signs, no focal motor deficits and CN's II-XI intact bilaterally Cranial nerves: Yes Equal, round and reactive pupils present Speech: No Abnormal speech present Gait exam (Neuro): Normal gait present Motor exam (neuro): 5/5 motor strength present throughout Extrem: General: Yes normal to inspection Objective Data Labs CBC & Chem 7: 09/23/20 04:25 09/23/20 04:25 Labs: Laboratory Results - last 24 hr 09/23/20 09/23/20 09/23/20 04:25 04:25 10:01 WBC 8.6 RBC 3.01 L Hgb 10.3 L Hct 27.9 L MCV 92.7 MCH 34.2 H MCHC 36.9 H RDW 12.7 Plt Count 151 L MPV 9.2 L Absolute Nucleated RBC 0.000 Nucleated RBC % (auto) 0.0 Sodium 126 L Potassium 2.8 L Chloride 82 L Carbon Dioxide 31 H Anion Gap 16 BUN 13 Creatinine 0.79 Estim Creat Clear Calc 98.6 Estimated GFR > 60 Fasting Glucose 108 H Calcium 8.0 L D Magnesium 1.5 L TSH 2.55 Assessment & Plan Assessment and plan (1) Seizure disorder: Status: Acute Assessment and Plan: 60-year-old male with a past medical history of alcohol abuse, COPD, depression presented to the hospital with a chief complaint of question seizure at home Breakthrough seizure possibly due to alcohol dependence with withdrawal continue phenobarb Trileptal hyponatremia beer potomania, versus SIADH from antiepileptics, urine studies were after IVF fluid restrict, added salt tablets, monitor nephro following hypokalemia and hypomagnesemia replace and monitor urine and stool incontinence chronic, no saddle anasthesia or weakness HTN amlodipine increased to 10mg daily COPD Stable HCV outpatient follow up Time Spent With Patient Time: Total time spent is greater than 50% in coordination of care (as documented) at patient's floor/unit and/or counseling patient: Progress Note: Quality Stroke Does the patient have a stroke diagnosis?: No
[2020-09-24] VITALS (11 sets, daily range): BP systolic 141–186; BP diastolic 68–103; PULSE 72–88; RESP 18–20; TEMP 36.5–37.3; O2SAT 95–98
[2020-09-24] MEDS: Labetalol HCL 100 MG/20 ML VIAL 10 MG IVPUSH (03:17)
--- NOTE | 2020-09-24 05:17 | PC.NURSE ---
CARE ASSUMED 23:15..AWAKE..ALERT..ORIENTED X3...VAGUE RESPONSES TO SOME QUESTIONS..IV FLUIDS 150 CC/HR..INCONTINANT LARGE AMOUNTS URINE....EXTERNAL [place] CATHETER APPLIED...REMAINS 1200ml/day FLUID RESTRICTION....CONTINUES TO REQUEST H20 WHENEVER IN ROOM...EXPLAINED RATIONALE FOR RESTRICTION D/T LOW SODIUM LEVEL...SODIUM LEVELS CAN BE DECREASED DRINKING LARGE AMOUNTS OF BEER AND HOME MED TRILEPTAL CAN ALSO DECREASE SODIUM LEVELS...PATIENT RESPONSE WAS WHATEVER ... I JUST WANT WATER ...NSR..NO ECTOPY..DENIES PAIN
[2020-09-24 06:57] LABS: Hematocrit 25.4 % (42-52); Hemoglobin 9.2 g/dl (14.0-18.0); Mean Corpuscular HGB Conc 36.2 g/dl (31.0-36.0); Mean Corpuscular Hemoglobin 34.2 pg (27.0-33.0); Mean Corpuscular Volume 94.4 fL (80-98); Mean Platelet Volume 9.1 fL (9.4-12.4); Platelet Count 156 X10*3/uL (160-400); Red Blood Count 2.69 X10*6/uL (4.60-5.80); Red Cell Distribution Width 12.9 % (11.0-16.0); White Blood Count 9.2 X10*3/uL (4.8-10.8)
[2020-09-24 07:23] LABS: Anion Gap 11 (12-20); Blood Urea Nitrogen 12 mg/dL (9-16); Calcium 7.5 mg/dL (8.4-10.2); Carbon Dioxide 32 mmol/L (22-29); Chloride 92 mmol/L (96-108); Creatinine Clr Calc Pharmacy 96.1; Estimated Glomerular Filt Rate > 60; Glucose Fasting 98 mg/dL (60-99); Magnesium 1.6 mg/dL (1.6-2.6); Potassium 3.1 mmol/L (3.3-5.1); Sodium 132 mmol/L (135-145)
--- NOTE | 2020-09-24 07:50 | PM.PNNEP ---
Subjective Subjective Date of Service: 09/24/20 Physical Exam Vital Signs: Vital Signs: Last Vital Signs Temp 98.3 F 09/24/20 07:12 Pulse 72 09/24/20 07:12 Resp 18 09/24/20 07:12 BP 141/68 H 09/24/20 07:12 Pulse Ox 98 09/24/20 07:12 Body Mass Index 26.1 Const: General: poor hygiene Orientation/consciousness: patient oriented x3 Limitations: no limitations HENMT: Head: Yes normal to inspection and Yes atraumatic Ears: hearing grossly normal bilaterally General nose exam: Normal external nose present Face and sinus: Yes normal facial exam Eyes: General: appearance normal, both eyes and all related structures Pupils: Equal, round and reactive pupils present EOM: EOMs intact bilaterally Neck: Neck: Yes normal visual inspection and Yes no meningeal signs Resp: Effort & Inspection: normal respiratory effort Auscultation: clear to auscultation bilaterally, no rales and no wheezes Cardio: Rate: regular rate Heart sounds: S1 normal heart sound present and S2 normal heart sound present GI: Inspection: Yes normal to inspection Palpation (GI): Soft to palpation, nontender, no guarding and not rigid Skin: Rashes: no rashes Wounds: no wounds Neuro: General: patient oriented x3, tone normal, moves all extremities, no meningeal signs, no focal motor deficits and CN's II-XI intact bilaterally Cranial nerves: Yes Equal, round and reactive pupils present Speech: No Abnormal speech present Gait exam (Neuro): Normal gait present Motor exam (neuro): 5/5 motor strength present throughout Extrem: General: Yes normal to inspection Objective Data Labs CBC & Chem 7: 09/24/20 05:32 09/24/20 05:32 Labs: Laboratory Results - last 24 hr 09/23/20 09/24/20 09/24/20 10:01 05:32 05:32 WBC 9.2 RBC 2.69 L Hgb 9.2 L Hct 25.4 L MCV 94.4 MCH 34.2 H MCHC 36.2 H RDW 12.9 Plt Count 156 L MPV 9.1 L Absolute Nucleated RBC 0.000 Nucleated RBC % (auto) 0.0 Sodium 132 L Potassium 3.1 L Chloride 92 L Carbon Dioxide 32 H Anion Gap 11 L BUN 12 Creatinine 0.81 Estim Creat Clear Calc 96.1 Estimated GFR > 60 Fasting Glucose 98 Calcium 7.5 L D Magnesium 1.6 TSH 2.55 Assessment & Plan Assessment and plan (1) Seizure disorder: Status: Acute Assessment and Plan: 60-year-old male with a past medical history of alcohol abuse, COPD, depression presented to the hospital with a chief complaint of question seizure at home Breakthrough seizure possibly due to alcohol dependence with withdrawal continue phenobarb Trileptal hyponatremia improved MAI improved low K still needs replacement, may have K wasting 2nd to ETOH urine and stool incontinence chronic, no saddle anasthesia or weakness HTN amlodipine increased to 10mg daily COPD Stable HCV outpatient follow up Procedures Date of Service Date of Service: 09/24/20 Progress Note: Quality Stroke Does the patient have a stroke diagnosis?: No
[2020-09-24] MEDS: Enoxaparin Sodium 40 MG/0.4 ML SYRINGE SUBCUT (08:25)
[2020-09-24] MEDS: PHENobarbitaL 30 MG TABLET PO ×2 (08:26→20:13)
[2020-09-24] MEDS: Magnesium Oxide 400 MG TABLET PO ×3 (08:26→20:13)
[2020-09-24] MEDS: Thiamine HCL 100 MG TABLET PO (08:26)
[2020-09-24] MEDS: FLUoxetine HCl 20 MG CAPSULE 40 MG PO (08:26)
[2020-09-24] MEDS: Sodium Chloride Tab 1 GM TABLET PO ×3 (08:27→20:13)
[2020-09-24] MEDS: Famotidine 20 MG TABLET PO ×2 (08:27→20:12)
[2020-09-24] MEDS: Aspirin Enteric Coated 81 MG TABLET.DR PO (08:27)
[2020-09-24] MEDS: amLODIPine Besylate 5 MG TABLET 10 MG PO (08:27)
[2020-09-24] MEDS: OXcarbazepine 150 MG TABLET PO ×3 (08:28→20:13)
[2020-09-24] MEDS: Potassium Chloride ER 20 MEQ TAB.ER.PRT PO (08:28)
[2020-09-24] MEDS: Potassium Chloride Packet 20 MEQ PACKET 40 MEQ PO ×2 (08:28→20:13)
[2020-09-24 09:17] LABS: Creatinine Urine 59.52 mg/dL; Microalbum/Creatinine Ratio Ur 771.1 ug/mg cr; Potassium Urine Random 55.7 mmol/L
--- NOTE | 2020-09-24 11:57 | P.PNIM_ITS ---
Subjective Subjective Date of Service: 09/24/20 Interval History: seen and examined feels better / stronger wants to go home and not to rehab ROS General - no fevers or chills Cardiovascular - no chest pain Respiratory - no shortness of breath or cough Abdominal- no abdominal pain, nausea, vomiting, diarrhea Physical Exam Vital Signs: Vital Signs: Last Vital Signs Temp 97.9 F 09/24/20 11:02 Pulse 80 09/24/20 11:02 Resp 18 09/24/20 11:02 BP 160/85 H 09/24/20 11:02 Pulse Ox 98 09/24/20 11:02 Body Mass Index 26.1 Const: Other: General - no acute distress, appears comfortable Cardiovascular - regular rate and rhythm, S1-S2 Lungs - normal respiratory effort, clear to auscultation bilaterally, no wheezing Abdomen - soft, nontender, no rebound or guarding Extremities - no edema bilaterally Neuro - awake and alert, no focal deficits Objective Data Current Medications Generic Name Dose Route Start Last Admin Trade Name Freq PRN Reason Stop Dose Admin Amlodipine Besylate 10 mg 09/21/20 09:00 09/24/20 08:27 Amlodipine Besylate 5 Mg Tablet PO 10 mg DAILY [facility] Administration Protocol Aspirin 81 mg 09/21/20 09:00 09/24/20 08:27 Aspirin Enteric Coated 81 Mg Tablet.Dr PO 81 mg DAILY [facility] Administration Enoxaparin Sodium 40 mg 09/21/20 08:00 09/24/20 08:25 Enoxaparin Sodium 40 Mg/0.4 Ml Syringe SUBCUT 40 mg Q24H [facility] Administration Famotidine 20 mg 09/20/20 21:00 09/24/20 08:27 Famotidine 20 Mg Tablet PO 20 mg BID [facility] Administration Fluoxetine HCl 40 mg 09/21/20 09:00 09/24/20 08:26 Fluoxetine Hcl 20 Mg Capsule PO 40 mg DAILY [facility] Administration Potassium Chloride/Sodium Chloride 20 meq in 1,000 mls @ 100 mls/hr 09/24/20 08:00 09/24/20 08:30 IVCONT Not Given .Q10H [facility] Labetalol HCl 10 mg 09/21/20 04:54 09/24/20 03:17 Labetalol Hcl 100 Mg/20 Ml Vial IVPUSH 10 mg Q4H PRN Administration BP>180/90 Magnesium Oxide 400 mg 09/23/20 09:00 09/24/20 08:26 Magnesium Oxide 400 Mg Tablet PO 400 mg TID [facility] Administration Medication 1 each 09/21/20 08:00 No Benzodiazepines MISCELLANE DAILY [facility] Melatonin 6 mg 09/20/20 20:56 Melatonin 3 Mg Tablet PO BEDTIME PRN Insomnia Multivitamins 1 tab 09/21/20 09:00 09/24/20 08:27 B-Complex With Vitamin C Tablet PO 1 tab DAILY [facility] Administration Oxcarbazepine 150 mg 09/21/20 09:00 09/24/20 08:28 Oxcarbazepine 150 Mg Tablet PO 150 mg TID [facility] Administration Phenobarbital 30 mg 09/23/20 21:00 09/24/20 08:26 Phenobarbital 30 Mg Tablet PO 09/25/20 09:01 30 mg BID [facility] Administration Protocol Phenobarbital 30 mg 09/26/20 09:00 Phenobarbital 30 Mg Tablet PO 09/27/20 09:01 DAILY [facility] Protocol Potassium Chloride 20 meq 09/23/20 11:55 09/24/20 08:28 Potassium Chloride Er 20 Meq Tab.Er.Prt PO 20 meq DAILY [facility] Administration Potassium Chloride 40 meq 09/23/20 10:00 09/24/20 08:28 Potassium Chloride Packet 20 Meq Packet PO 40 meq BID [facility] Administration Senna 17.2 mg 09/20/20 20:56 Sennosides 8.6 Mg Tablet PO BEDTIME PRN Constipation Sodium Chloride 3 ml 09/21/20 00:00 09/24/20 08:16 0.9 % Sodium Chloride Flush 3 Ml Syringe IVFLUSH Not Given QSHIFT [facility] Sodium Chloride 1 gm 09/22/20 10:15 09/24/20 08:27 Sodium Chloride Tab 1 Gm Tablet PO 1 gm TID [facility] Administration Thiamine HCl 100 mg 09/21/20 09:00 09/24/20 08:26 Thiamine Hcl 100 Mg Tablet PO 100 mg DAILY [facility] Administration Labs CBC & Chem 7: 09/24/20 05:32 09/24/20 05:32 Labs: Laboratory Results - last 24 hr 09/24/20 09/24/20 09/24/20 05:32 05:32 08:30 WBC 9.2 RBC 2.69 L Hgb 9.2 L Hct 25.4 L MCV 94.4 MCH 34.2 H MCHC 36.2 H RDW 12.9 Plt Count 156 L MPV 9.1 L Absolute Nucleated RBC 0.000 Nucleated RBC % (auto) 0.0 Sodium 132 L Potassium 3.1 L Chloride 92 L Carbon Dioxide 32 H Anion Gap 11 L BUN 12 Creatinine 0.81 Estim Creat Clear Calc 96.1 Estimated GFR > 60 Fasting Glucose 98 Calcium 7.5 L D Magnesium 1.6 Ur Random Sodium 37.0 Ur Random Potassium 55.7 Urine Creatinine 59.52 Urine Microalbumin 459.0 Microalb/Creat Ratio 771.1 Quality Stroke Does the patient have a stroke diagnosis?: No VTE Prior VTE?: No VTE Risk Level:: Medical - moderate - high VTE Device Contraindication: Treatment Not Indicated VTE Drug Contraindication: N/A - Med Ordered Assessment and Plan (1) Seizure disorder: Status: Acute Assessment and Plan: 60-year-old male with a past medical history of alcohol abuse, COPD, depression presented to the hospital with a chief complaint of question seizure at home Breakthrough seizure possibly due to alcohol dependence with withdrawal continue phenobarb Trileptal no further seizures hyponatremia beer potomania, versus SIADH from antiepileptics, urine studies were after IVF fluid restrict, added salt tablets, monitor nephro following hypokalemia and hypomagnesemia replace and monitor urine and stool incontinence chronic, no saddle anasthesia or weakness HTN amlodipine increased to 10mg daily COPD Stable HCV outpatient follow up
--- NOTE | 2020-09-24 12:28 | MHC.CM.PN ---
Addendum entered by Chaya Way 09/24/20 12:37: with home physical therapy per pts receommdation Original Note: per multi dis rounds anticipates dc tomorrow
--- NOTE | 2020-09-24 15:38 | P.CNNE_ITS ---
History of Present Illness Data of Consult Service Date: 09/24/20 Primary Care Provider: Sabrina Ansari MD 60 years old man I was asked to see for seizure disorder. He was unable to provide any meaningful history. Apparently has history of alcohol abuse and he was admitted in hospital with what were described as alcohol withdrawal seizure. He had multiple electrolyte abnormalities and was admitted for further evaluation and treatment. He did not have any seizure recently. Review of Systems Review of Systems: Unable to provide full history but no recent cold or flu- like illness or trauma. [facility] Past Medical History Medical History (Updated 09/24/20 @ 15:42 by Wendy Patel MD) COPD (chronic obstructive pulmonary disease) H/O ETOH abuse HCV (hepatitis C virus) Heart disease Seizure disorder Surgical History Surgical History H/O left wrist surgery Social History Social History (Updated 09/21/20 @ 07:11 by Pedro Luis North MD) Household Members: Significant Other Housing: Apartment Alcohol intake: current Patient Tobacco Use Status: Current everyday Tobacco user Tobacco use type: Cigarette Cigarette Packs Per Day: 0.5 Cigarettes Per Day: 10.0 service: No Meds Allergies Allergy/AdvReac Type Severity Reaction Status Date / Time acetaminophen [From PERCOCET] Allergy Mild Rash Verified 09/21/20 17:29 oxycodone [From PERCOCET] Allergy Mild Rash Verified 09/21/20 17:29 Penicillins [PENICILLINS] Allergy Mild Rash Verified 09/21/20 17:29 Active Medications: Current Medications Generic Name Dose Route Start Last Admin Trade Name Debbie PRN Reason Stop Dose Admin Amlodipine Besylate 10 mg 09/21/20 09:00 09/24/20 08:27 Amlodipine Besylate 5 Mg Tablet PO 10 mg DAILY [facility] Administration Protocol Aspirin 81 mg 09/21/20 09:00 09/24/20 08:27 Aspirin Enteric Coated 81 Mg Tablet. PO 81 mg DAILY [facility] Administration Enoxaparin Sodium 40 mg 09/21/20 08:00 09/24/20 08:25 Enoxaparin Sodium 40 Mg/0.4 Ml Syringe SUBCUT 40 mg Q24H [facility] Administration Famotidine 20 mg 09/20/20 21:00 09/24/20 08:27 Famotidine 20 Mg Tablet PO 20 mg BID [facility] Administration Fluoxetine HCl 40 mg 09/21/20 09:00 09/24/20 08:26 Fluoxetine Hcl 20 Mg Capsule PO 40 mg DAILY [facility] Administration Potassium Chloride/Sodium Chloride 20 meq in 1,000 mls @ 100 mls/hr 09/24/20 08:00 09/24/20 12:12 IVCONT 100 mls/hr .Q10H [facility] Administration Labetalol HCl 10 mg 09/21/20 04:54 09/24/20 03:17 Labetalol Hcl 100 Mg/20 Ml Vial IVPUSH 10 mg Q4H PRN Administration BP>180/90 Magnesium Oxide 400 mg 09/23/20 09:00 09/24/20 14:01 Magnesium Oxide 400 Mg Tablet PO 400 mg TID [facility] Administration Medication 1 each 09/21/20 08:00 No Benzodiazepines MISCELLANE DAILY [facility] Melatonin 6 mg 09/20/20 20:56 Melatonin 3 Mg Tablet PO BEDTIME PRN Insomnia Multivitamins 1 tab 09/21/20 09:00 09/24/20 08:27 B-Complex With Vitamin C Tablet PO 1 tab DAILY [facility] Administration Oxcarbazepine 150 mg 09/21/20 09:00 09/24/20 14:00 Oxcarbazepine 150 Mg Tablet PO 150 mg TID [facility] Administration Phenobarbital 30 mg 09/23/20 21:00 09/24/20 08:26 Phenobarbital 30 Mg Tablet PO 09/25/20 09:01 30 mg BID [facility] Administration Protocol Phenobarbital 30 mg 09/26/20 09:00 Phenobarbital 30 Mg Tablet PO 09/27/20 09:01 DAILY [facility] Protocol Potassium Chloride 20 meq 09/23/20 11:55 09/24/20 08:28 Potassium Chloride Er 20 Meq Tab.Er.Prt PO 20 meq DAILY [facility] Administration Potassium Chloride 40 meq 09/23/20 10:00 09/24/20 08:28 Potassium Chloride Packet 20 Meq Packet PO 40 meq BID [facility] Administration Senna 17.2 mg 09/20/20 20:56 Sennosides 8.6 Mg Tablet PO BEDTIME PRN Constipation Sodium Chloride 3 ml 09/21/20 00:00 09/24/20 13:21 0.9 % Sodium Chloride Flush 3 Ml Syringe IVFLUSH Not Given QSHIFT [facility] Sodium Chloride 1 gm 09/22/20 10:15 09/24/20 14:00 Sodium Chloride Tab 1 Gm Tablet PO 1 gm TID [facility] Administration Thiamine HCl 100 mg 09/21/20 09:00 09/24/20 08:26 Thiamine Hcl 100 Mg Tablet PO 100 mg DAILY [facility] Administration Home Medications Medication Instructions Recorded Confirmed Last Taken Type aspirin 1 tab PO DAILY 09/20/20 09/20/20 Unknown History aspirin 1 tab PO DAILY 09/20/20 09/20/20 Unknown History fluoxetine 2 cap PO QAM 09/20/20 09/20/20 Unknown History folic acid 1 tab PO ONCE 09/20/20 09/20/20 Unknown History meloxicam 1 tab PO BID 09/20/20 09/20/20 Unknown History oxcarbazepine 1 tab PO TID 09/20/20 09/20/20 Unknown History thiamine HCl (vitamin B1) [Vitamin 1 tab PO DAILY 09/20/20 09/20/20 Unknown History B-1] Physical Exam Vital Signs: Vital Signs: Last Vital Signs Temp 98.6 F 09/24/20 15:33 Pulse 84 09/24/20 15:33 Resp 18 09/24/20 15:33 BP 143/84 H 09/24/20 15:33 Pulse Ox 95 09/24/20 15:33 Body Mass Index 26.1 Alert and awake with normal spontaneity of speech fluency comprehension and wake affect. He could not tell me what happened. Pupils were equal and reactive to light and extraocular muscles were intact. Visual estevez are full. Face was symmetrical. There was no pronator drift. Deep tendon reflexes were trace to absent with flexor plantars. Results Labs CBC & Chem 7: 09/24/20 05:32 09/24/20 05:32 Labs: Short CBC 09/24/20 Range/Units 05:32 WBC 9.2 (4.8-10.8) X10*3/uL Hgb 9.2 L (14.0-18.0) g/dl Hct 25.4 L (42-52) % Plt Count 156 L (160-400) X10*3/uL [facility] [place] 09/24/20 05:32 Sodium 132 L Potassium 3.1 L Chloride 92 L Carbon Dioxide 32 H BUN 12 Creatinine 0.81 Calcium 7.5 L D his head CT revealed moderately severe diffuse cerebral and cerebellar atrophy, moderately severe chronic microvascular ischemic changes, and a right anterior temporal arachnoid cyst. Assessment and Plan (1) Seizure disorder: Status: Acute 60 years old man with underlying alcohol abuse, significant cerebral and cerebellar atrophy and microvascular changes suggestive of chronic alcoholism, a congenital right anterior temporal arachnoid cyst was admitted with complications of alcohol. There were multiple electrolyte abnormalities. At this time mainstay of management is correction of electrolyte abnormalities. His risk of seizure disorder is relatively high, with or without alcohol. Also I would expect that he suffered from multiple behavioral symptoms including anxiety, depression and personality change. EEG is recommended to rule out any ictal activity. Otherwise medicines like lamotrigine or Depakote can help to manage both behavioral disorder and possibility of seizure disorder. He should not drive per (2) Alcoholism: Status: Acute (3) Cerebral microvascular disease: Status: Acute (4) Arachnoid cyst: Status: Acute Procedures Date of Service Date of Service: 09/24/20
[2020-09-25 03:34] VITALS: BP 164/92; PULSE 95; RESP 20; TEMP 37.2; O2SAT 95
[2020-09-25 07:03] VITALS: BP 169/86; PULSE 79; RESP 20; TEMP 36.8; O2SAT 98
--- NOTE | 2020-09-25 07:32 | P.PNNP_ITS ---
Subjective Subjective Date of Service: 09/25/20 Interval history: seen and examined feels better / stronger wants to go home and not to rehab ROS General - no fevers or chills Cardiovascular - no chest pain Respiratory - no shortness of breath or cough Abdominal- no abdominal pain, nausea, vomiting, diarrhea Physical Exam Vital Signs: Vital Signs: Last Vital Signs Temp 98.2 F 09/25/20 07:03 Pulse 79 09/25/20 07:03 Resp 20 09/25/20 07:03 BP 169/86 H 09/25/20 07:03 Pulse Ox 98 09/25/20 07:03 Body Mass Index 26.1 Const: Other: General - no acute distress, appears comfortable Cardiovascular - regular rate and rhythm, S1-S2 Lungs - normal respiratory effort, clear to auscultation bilaterally, no wheezing Abdomen - soft, nontender, no rebound or guarding Extremities - no edema bilaterally Neuro - awake and alert, no focal deficits General: poor hygiene Orientation/consciousness: patient oriented x3 Limitations: no limitations HENMT: Head: Yes normal to inspection and Yes atraumatic Ears: hearing grossly normal bilaterally General nose exam: Normal external nose present Face and sinus: Yes normal facial exam Eyes: General: appearance normal, both eyes and all related structures Pup ils: Equal, round and reactive pupils present EOM: EOMs intact bilaterally Neck: Neck: Yes normal visual inspection and Yes no meningeal signs Resp: Effort & Inspection: normal respiratory effort Auscultation: clear to auscultation bilaterally, no rales and no wheezes Cardio: Rate: regular rate Heart sounds: S1 normal heart sound present and S2 normal heart sound present GI: Inspection: Yes normal to inspection Palpation (GI): Soft to palpation, nontender, no guarding and not rigid Skin: Rashes: no rashes Wounds: no wounds Neuro: General: patient oriented x3, tone normal, moves all extremities, no meningeal signs, no focal motor deficits and CN's II-XI intact bilaterally Cranial nerves: Yes Equal, round and reactive pupils present Speech: No Abn ormal speech present Gait exam (Neuro): Normal gait present Motor exam (neuro): 5/5 motor strength present throughout Extrem: General: Yes normal to inspection Objective Data Labs CBC & Chem 7: 09/24/20 05:32 09/24/20 05:32 Labs: Laboratory Results - last 24 hr 09/23/20 09/24/20 10:01 08:30 Cortisol 20.8 Ur Random Sodium 37.0 Ur Random Potassium 55.7 Urine Creatinine 59.52 Urine Microalbumin 459.0 Microalb/Creat Ratio 771.1 Assessment & Plan Assessment and plan (1) Acute hyponatremia: Status: Acute Assessment and Plan: he has K wasting likely tubular injury. also albuminuria will need significant KCL replacement till tubular recovery (2) Acute hypokalemia: Status: Acute Assessment and Plan: TSH and cortisol normal na slowly normalizing Time Spent With Patient Time: Total time spent is greater than 50% in coordination of care (as documented) at patient's floor/unit and/or counseling patient: Procedures Date of Service Date of Service: 09/25/20 Progress Note: Quality Stroke Does the patient have a stroke diagnosis?: No
[2020-09-25] MEDS: Potassium Chloride Packet 20 MEQ PACKET 40 MEQ PO ×3 (08:33→11:16)
[2020-09-25] MEDS: FLUoxetine HCl 20 MG CAPSULE 40 MG PO (08:35)
[2020-09-25 08:36] VITALS: BP 169/86; PULSE 79
[2020-09-25] MEDS: Potassium Chloride ER 20 MEQ TAB.ER.PRT PO (08:36)
[2020-09-25] MEDS: Sodium Chloride Tab 1 GM TABLET PO (08:36)
[2020-09-25] MEDS: Magnesium Oxide 400 MG TABLET PO (08:36)
[2020-09-25] MEDS: Famotidine 20 MG TABLET PO (08:36)
[2020-09-25] MEDS: Thiamine HCL 100 MG TABLET PO (08:36)
[2020-09-25] MEDS: PHENobarbitaL 30 MG TABLET PO (08:36)
[2020-09-25] MEDS: amLODIPine Besylate 5 MG TABLET 10 MG PO (08:36)
[2020-09-25] MEDS: Enoxaparin Sodium 40 MG/0.4 ML SYRINGE SUBCUT (08:37)
[2020-09-25] MEDS: 0.9 % Sodium Chloride Flush 3 ML SYRINGE IVFLUSH (08:38)
[2020-09-25] MEDS: Aspirin Enteric Coated 81 MG TABLET.DR PO (08:38)
[2020-09-25] MEDS: OXcarbazepine 150 MG TABLET PO (08:53)
[2020-09-25 09:00] LABS: Hematocrit 25.2 % (42-52); Mean Corpuscular HGB Conc 35.7 g/dl (31.0-36.0); Mean Corpuscular Volume 98.1 fL (80-98); Mean Platelet Volume 9.5 fL (9.4-12.4); NRBC Pct Auto 0.2 /100WBC (0.0-0.2); Platelet Count 168 X10*3/uL (160-400); Red Blood Count 2.57 X10*6/uL (4.60-5.80); Red Cell Distribution Width 13.7 % (11.0-16.0); White Blood Count 11.6 X10*3/uL (4.8-10.8)
[2020-09-25 09:31] LABS: Anion Gap 9 (12-20); Blood Urea Nitrogen 8 mg/dL (9-16); Calcium 7.8 mg/dL (8.4-10.2); Carbon Dioxide 31 mmol/L (22-29); Chloride 97 mmol/L (96-108); Creatinine Clr Calc Pharmacy 103.8; Estimated Glomerular Filt Rate > 60; Glucose Random 86 mg/dL (60-115); Potassium 3.7 mmol/L (3.3-5.1); Sodium 133 mmol/L (135-145)
[2020-09-25 10:26] LABS: Oxcarbazepine 17.1 mcg/mL (8.0-35.0)
--- NOTE | 2020-09-25 11:00 | P.F2F_ITS ---
Service Date Service Date: 09/25/20 Encounter Date of encounter: 09/25/20 Reasons for Services Reason for physical therapy: home safety and mobility MD Overseeing Care: Sabrina Ansari Homebound: Leaving the home is medically contraindicated at this time without the asist of a device and/or another person due th the listed conditions above and below. Reason homebound: unsteady gait / fall risk Certification: Based on the above findings, I certify that this patient is confined to the home and needs intermittent senior living care, physical therapy and/or speech therapy, or continues to need occupational therapy. The patient is under my care, and I have initiated the establishment of the plan of care. The patient will be followed by a physician who will periodically review the plan of care.
--- NOTE | 2020-09-25 11:03 | PM.DS ---
DS: Providers Provider Date of Service: 09/25/20 Date of admission: 09/20/20 20:56 Primary care physician: Sabrina Ansari MD Consults: 09/20/20 20:56 Consult to Neurology Routine Consulting Provider: [facility] Reason for consultation: seizure; urine and stool incontinance 09/20/20 21:25 Consult to Nephrology Routine Consulting Provider: Js Stallings Reason for consultation: hyponatremia/hypokalemia DS: Diagnosis Discharge Diagnosis (1) Acute hyponatremia: Status: Acute (2) Acute hypokalemia: Status: Acute (3) Cerebral microvascular disease: Status: Acute (4) Alcoholism: Status: Acute (5) Seizure disorder: Status: Acute (6) HCV (hepatitis C virus): Status: Acute DS: Medications Discharge Medications Home Medications: Home Medications Medication Instructions Recorded Confirmed aspirin 1 tab PO DAILY 09/20/20 09/20/20 fluoxetine 2 cap PO QAM 09/20/20 09/20/20 folic acid 1 tab PO ONCE 09/20/20 09/20/20 oxcarbazepine 1 tab PO TID 09/20/20 09/20/20 thiamine HCl (vitamin B1) [Vitamin 1 tab PO DAILY 09/20/20 09/20/20 B-1] Previous Rx's Medication Instructions Recorded amlodipine 10 mg PO DAILY 30 Days #60 tab 09/25/20 magnesium oxide 400 mg PO BID 30 Days #60 tab 09/25/20 potassium chloride [Klor-Con M20] 40 meq PO BID 14 Days #56 tab 09/25/20 DS: Summary Hospital Course Hospital Course: From H&P on day of admission 60-year-old male with a past medical history of alcohol abuse, seizure, depression, hypertension,? Heart disease presented to the hospital with a chief complaint of alcohol withdrawal/seizure. Patient is alert and oriented x3, when asked -> patient reports that his girlfriend brought him to the hospital. Denies any complaints. Denies any chest pain palpitations lightheadedness or dizziness. Denies any headaches numbness tingling. Denies any nausea vomiting diarrhea. Denies any fever chills cough. As per the ER team patient was sent to the hospital by the patient's girlfriend because patient was noted to be withdrawing/urinary incontinence/diaphoretic at home. ? Seizure like activity at home. Patient reports that he has been compliant with his home seizure medication; last seizure was 15 days ago; mentions he probably had a seizure at home today. Last drink was 2 days ago. Review of all other systems is negative except mentioned above ER course: Per ER team patient noted to have severe hypokalemia, EKG showed probable U waves; patient was aggressively repleted with potassium; given Keppra x1. CT head pending. Patient exam was nonfocal. Admitted for further management hospital course by problem: Alcohol use disorder/alcohol withdrawal. patient was admitted to the hospital for possible seizure prior to admission. He was placed on phenobarbital protocol. No further seizure activity was noted. He was supplemented with potassium, magnesium, thiamine, folate. He has been urged to abstain from alcohol completely. Hyponatremia. Likely related to underlying alcohol use. Placed on fluid restriction and sodium tablets initially. Patient was seen in consultation by Nephrology who assisted in care. Sodium gradually improved is 133 on day of discharge. Follow-up with Neurology, repeat labs will be ordered for Tuesday the . Seizure disorder with possible breakthrough seizure. possibly related to alcohol withdrawal. Instructed not to drive. Will need outpatient EEG. Should follow up with Neurology. No changes were made to home medications. Hypertension. Patient's blood pressure was elevated during and patient was not noted to be on any medication at home. He was started on Norvasc. He may need further blood pressure titration test as an outpatient. As part of workup patient did have CT scan the brain which showed diffuse global white matter disease likely secondary to chronic microvascular angiopathy. Time Spent with Patient Time attestation: Total time spent providing and/or coordinating discharge services: Discharge coordination time: Greater than 30 minutes Quality: Stroke Does the patient have a stroke diagnosis?: No Physical Exam Vital Signs: Vital Signs: Last Vital Signs Temp 98.2 F 09/25/20 07:03 Pulse 79 09/25/20 08:36 Resp 20 09/25/20 07:03 BP 169/86 H 09/25/20 08:36 Pulse Ox 98 09/25/20 07:03 Body Mass Index 26.1 Const: Nutritional Appearance: well nourished HENMT: Head: Yes normocephalic and Yes atraumatic Eyes: Sclerae: sclerae normal Chest: Chest palpation & inspection: normal inspection of the chest Resp: Effort & Inspection: normal respiratory effort and no respiratory distress Cardio: Rate: regular rate Rhythm: regular rhythm GI: Palpation (GI): Soft to palpation and nontender Neuro: Cranial nerves: Yes CN's II-XII intact bilaterally and Yes Bilaterally intact EOM present DS: Data Data Completed and Pending Labs on day of discharge: Laboratory Results - last 24 hr 09/20/20 09/23/20 09/25/20 18:45 10:01 07:58 WBC 11.6 H RBC 2.57 L Hgb 9.0 L Hct 25.2 L MCV 98.1 H MCH 35.0 H MCHC 35.7 RDW 13.7 Plt Count 168 MPV 9.5 Absolute Nucleated RBC 0.020 H Nucleated RBC % (auto) 0.2 Sodium Potassium Chloride Carbon Dioxide Anion Gap BUN Creatinine Estim Creat Clear Calc Estimated GFR Random Glucose Calcium Cortisol 20.8 Oxcarbazepine 17.1 09/25/20 07:58 WBC RBC Hgb Hct MCV MCH MCHC RDW Plt Count MPV Absolute Nucleated RBC Nucleated RBC % (auto) Sodium 133 L Potassium 3.7 Chloride 97 Carbon Dioxide 31 H Anion Gap 9 L BUN 8 L Creatinine 0.75 Estim Creat Clear Calc 103.8 Estimated GFR > 60 Random Glucose 86 Calcium 7.8 L Cortisol Oxcarbazepine Discharge Plan Discharge Patient Disposition: Home Health Service Discharge Diagnosis: alcohol withdrawal hyponatremia hypokalemia seizure Referrals: Luis Felipe Jeffrey MD [Physician] - 1 Week Wendy Patel MD [Physician] - 1 Week Sabrina Ansari MD [Primary Care Provider] - 1 Week Discharge Medications: New amlodipine 5 mg Tablet 10 mg PO DAILY 30 Days Qty: 60 RF: 0 potassium chloride [Klor-Con M20] 20 mEq tablet,ER particles/crystals 40 meq PO BID 14 Days Qty: 56 RF: 0 magnesium oxide 400 mg (241.3 mg magnesium) tablet 400 mg PO BID 30 Days Qty: 60 RF: 0 Continued oxcarbazepine 150 mg tablet 1 tab PO TID RF: 0 thiamine HCl (vitamin B1) [Vitamin B-1] 100 mg tablet 1 tab PO DAILY RF: 0 aspirin 81 mg tablet,delayed release (DR/EC) 1 tab PO DAILY RF: 0 folic acid 1 mg tablet 1 tab PO ONCE RF: 0 fluoxetine 20 mg capsule 2 cap PO QAM RF: 0 Discontinued aspirin 81 mg tablet,delayed release (DR/EC) 1 tab PO DAILY RF: 0 meloxicam 7.5 mg tablet 1 tab PO BID RF: 0 Discharge Orders: Discharge Order (Routine); Ordered 09/25/20 Ordered By: Josefa Benitez Diet: advance to usual diet Activity on Discharge: As tolerated Stand Alone Forms: Patient Portal Discharge page Other Ambulatory Orders: Basic Metabolic Panel (Routine) Timeframe: 20200929 Facility: [facility] - Location: Laboratory Ordered By: Josefa Benitez Care Plan Goals: see below Health Concerns: alcohol dependence and withdrawal low potassium low sodium seizure Plan of Treatment: do not drink alcohol call to schedule follow up appointment with neurology, you will need to have an EEG done call to schedule 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 You have also been started on a medication for blood pressure. take all medications (both new and existing) as prescribed. You will need to have lab work repeated on Tuesday Assessment: see discharge summary
--- NOTE | 2020-09-25 11:08 | MHC.CM.PN ---
Addendum entered by Amy Avalos 09/25/20 14:01: PT REQUESTING TRANSPORT HOME. CHAIR VAN ARRANGED FOR 1500 HOURS. Addendum entered by Amy Avalos 09/25/20 11:20: CORRECTION: DC HOME WITH [facility] FOR PT SERVICES Original Note: PT IS CLEARED TO DC TODAY, HOME WITH NO SERVICES.
[2020-09-25 11:16] VITALS: BP 169/93; PULSE 83; RESP 20; TEMP 37.4; O2SAT 95
== END 2020-09-25 15:10 | disposition home health service (06) | DRG 53 ==
LOC: HO.ED 20:38 → HO.EDOVER 21:13 → HO.IMC 09-21 16:26
PROVIDERS: Internal Medicine; Internal Medicine Nephrology; Physician Assistant; Physician Assistant Medical; Admitting Provider Hospitalist; Emergency Provider Internal Medicine; PCP Student in an Organized Health Care Education/Training Program; Visit Provider Family Medicine
DX: G40.509 Epileptic seizures related to external causes, not intractable, without status epilepticus (principal); E87.1 Hypo-osmolality and hyponatremia; R15.9 Full incontinence of feces; G40.909 Epilepsy, unspecified, not intractable, without status epilepticus; E87.6 Hypokalemia; B19.20 Unspecified viral hepatitis C without hepatic coma; R32 Unspecified urinary incontinence; J44.9 Chronic obstructive pulmonary disease, unspecified; F10.239 Alcohol dependence with withdrawal, unspecified; I10 Essential (primary) hypertension; G93.0 Cerebral cysts; Z20.822 Contact with and (suspected) exposure to COVID-19; Z88.5 Allergy status to narcotic agent; Z88.6 Allergy status to analgesic agent; Z79.82 Long term (current) use of aspirin; Z79.899 Other long term (current) drug therapy
CPT/HCPCS: 36415; 70450; 71045; 80048; 80076; 80307; 80339; 81001; 82043; 82077; 82088; 82140; 82436; 82533; 83690; 83735; 83930; 83935; 84133; 84300; 84443; 84484; 85025; 85027; 85610; 85730; 87635; 93005; 97162; 99285; J1650; J1953; J2560; J3475

== ENCOUNTER 2020-12-16 09:31 | Inpatient (IN) | payer MEDICAID, SELFPAY ==
[2020-12-16] VITALS (14 sets, daily range): BP systolic 136–206; BP diastolic 84–130; PULSE 76–102; RESP 11–101; TEMP 36.5–36.6; O2SAT 90–100; BMI 16.9; BMI 22.1
--- NOTE | ~2020-12-16 | XR_ITS ---
EXAMINATION: XR CHEST CLINICAL INFORMATION: COPD COMPARISON: None TECHNIQUE: Frontal view of the chest was obtained. FINDINGS: The lungs are well-expanded and clear. The heart size and pulmonary vascularity is normal. No gross bony abnormality seen. XR/XR chest 1V IMPRESSION: Unremarkable chest exam.
--- NOTE | ~2020-12-16 | CT_ITS ---
EXAMINATION: CT HEAD WITHOUT CONTRAST CLINICAL INFORMATION: AMS, falls, EtOH. COMPARISON: CT brain 09/21/2020. TECHNIQUE: Contiguous axial imaging was performed from the skull base to vertex without intravenous administration of contrast. This CT examination was performed using dose optimization techniques as appropriate, variously including the following: *Automated exposure control *Adjustment of mA and/or kV according to patient size (this includes techniques or standardized protocols for targeted exams where dose is matched to indication/reason for exam; i.e. extremities or head) *Use of iterative reconstruction technique DLP: 1087 mGy-cm FINDINGS: There is no evidence of acute intracranial hemorrhage or territorial infarction. No abnormal mass effect or midline shift is seen. [place] to white matter differentiation is well preserved. No extra-axial fluid collections are identified. The lateral ventricles are symmetrical but moderately enlarged. There is diffuse periventricular hypodensity in both cerebral hemispheres without mass effect. The osseous structures and soft tissues are normal. The paranasal sinuses and mastoid air cells are well-aerated. CT/CT head/brain wo con IMPRESSION: No acute intracranial process seen.
--- NOTE | 2020-12-16 09:43 | ED_ITS ---
HPI - General Adult General Chief complaint: Weakness Stated complaint: AMS,FAILURE TO THRIVE Time Seen by Provider: 12/16/20 09:37 Source: patient and EMS Mode of arrival: EMS Limitations: altered mental status History of Present Illness HPI narrative: Patient comes to the emergency room via EMS. EMS reports that the patient's girlfriend called because the patient has been more confused than usual, patient has baseline urinary and fecal incontinence but has been worse than usual. Girlfriend reports that the patient drinks alcohol, last drink 4 days ago. Patient sustained a fall 3 days ago, had a laceration to the left eyebrow, patient did not seek medical attention. The girlfriend states that the lethargy which is chronic led to the fall. Patient denies any symptoms, unable to give any significant history. The girlfriend reports that the patient is complaint with his seizure medications. Related Data Home Medications Medication Instructions Recorded Confirmed aspirin 81 mg tablet,delayed 1 tab PO DAILY 09/20/20 12/16/20 release fluoxetine 20 mg capsule 2 cap PO QAM 09/20/20 12/16/20 folic acid 1 mg tablet 1 tab PO DAILY 09/20/20 12/16/20 oxcarbazepine 150 mg tablet 1 tab PO TID 09/20/20 12/16/20 thiamine HCl (vitamin B1) 100 mg 1 tab PO DAILY 09/20/20 12/16/20 tablet (Vitamin B-1) albuterol sulfate 90 mcg/actuation 2 puff PO Q4H PRN 12/16/20 12/16/20 aerosol inhaler (ProAir HFA) meloxicam 7.5 mg tablet 1 tab PO BID 12/16/20 12/16/20 multivitamin 1 tab PO DAILY 12/16/20 12/16/20 Allergies Allergy/AdvReac Type Severity Reaction Status Date / Time acetaminophen [From PERCOCET] Allergy Mild Rash Verified 09/21/20 17:29 oxycodone [From PERCOCET] Allergy Mild Rash Verified 09/21/20 17:29 Penicillins [PENICILLINS] Allergy Mild Rash Verified 09/21/20 17:29 Review of Systems Review of Systems: Constitutional : No Weight loss, No Fever, No Chills, No Night Sweats, No Fatigue, No Malaise ENT/Mouth : No Hearing loss, No Ear Pain, No Nasal Congestion, No Sinus Pain, No Hoarseness, No sore throat, No Rhinorrhea, No Swallowing Difficulty Eyes: No Eye Pain, No Swelling, No Redness, No Foreign Body, No Discharge, No Vision Changes Cardiovascular : No Chest Pain, No SOB, No Dyspnea on Exertion, No Orthopnea, No Edema, No Palpitations Respiratory : No Cough, No Sputum, No Wheezing, No Smoke Exposure, No Dyspnea Gastrointestinal : No Nausea, No Vomiting, No Diarrhea, No Constipation, No abdominal Pain, No Hematochezia, No Melena Genitourinary : no irregular bleeding, No Dysuria, No Urinary Frequency, No Hematuria, No Urinary Incontinence, No Urgency, No Flank Pain, No Urinary Flow Changes, No Hesitancy Musculoskeletal : No joint pain, No Myalgias, No Joint Swelling Skin : No Skin Lesions, No rash Neuro : No Weakness, No Numbness, No Paresthesias, No Loss of Consciousness, No Dizziness, No Headache Psych : No Anxiety/Panic, No Depression, No SI/HI/AH/VH, No Social Issues, Heme/Lymph: No Bruising, No Bleeding,No Lymphadenopathy Endocrine : No Polyuria, No Polydipsia, No Temperature Intolerance [facility] Past Medical History Source: unable to obtain Medical History (Updated 12/16/20 @ 12:01 by Leeann Rosado MD) COPD (chronic obstructive pulmonary disease) H/O ETOH abuse HCV (hepatitis C virus) Heart disease Seizure disorder Surgical History H/O left wrist surgery Social History Social History (Updated 09/21/20 @ 07:11 by Pedro Luis North MD) Household Members: Significant Other Housing: Apartment Alcohol intake: current Patient Tobacco Use Status: Current everyday Tobacco user Tobacco use type: Cigarette Cigarette Packs Per Day: 0.5 Cigarettes Per Day: 10.0 Use of substances other than those prescribed or required for medical reasons: No Advance Directives: No Advance Directives Information Provided: No service: No Physical Exam Vital Signs: Vital Signs: Last Vital Signs Temp 97.7 F 12/16/20 09:47 Pulse 76 12/16/20 09:47 Resp 18 12/16/20 09:47 BP 149/88 H 12/16/20 09:47 Pulse Ox 100 12/16/20 09:47 Body Mass Index 22.1 Const: Other: Appearance: Alert. Oriented X3. No acute distress. Disheveled Eyes: Pupils equal, round and reactive to light. ENT: Pharynx normal. Neck: Normal inspection. Neck supple. No lymph nodes noted. No crepitus CVS: Normal heart rate and rhythm. Pulses normal. Normal S1 and S2 Respiratory: No respiratory distress. Breath sounds normal. No Wheezing. No rales Abdomen: Soft and nontender. No rigidity. No distention. Skin: Skin warm and dry. Old healed laceration the lateral aspect of the left eyebrow Extremities: No lower extremity edema. No asterixis Neuro: Oriented X 3. No motor deficit. No sensory deficit. Moving all extermities. No slurred speech. Course Course Course Narrative: I discussed the patient with Dr. Hernandez, patient will be started on 1 L normal saline with 40 mEq, at a rate of 500 cc for the 1st hour and 250 cc thereafter. Patient's sodium is 115, patient will be going to the intensive care unit. Patient remains awake, alert, expresses no complaints, remains confused Medical Decision Making Lab Data Result diagrams: 12/16/20 10:47 12/16/20 10:47 Labs: Lab Results 12/16/20 12/16/20 12/16/20 Range/Units 10:46 10:47 10:47 WBC 12.8 H (4.8-10.8) X10*3/uL RBC 4.20 L D (4.60-5.80) X10*6/uL Hgb 12.0 L D (14.0-18.0) g/dl Hct 35.7 L D (42-52) % MCV 85.0 (80-98) fL MCH 28.6 (27.0-33.0) pg MCHC 33.6 (31.0-36.0) g/dl RDW 13.3 (11.0-16.0) % Plt Count 174 (160-400) X10*3/uL MPV 8.8 L (9.4-12.4) fL Immature Gran % (Auto) 0.6 H (0.0-0.4) % Neut % (Auto) 89.7 H (45-73) % Lymph % (Auto) 2.6 L (20-40) % [place] % (Auto) 6.8 (2-11) % Eos % (Auto) 0.1 (0-4) % Baso % (Auto) 0.2 (0-2) % Lymph # (Auto) 0.3 L (1.2-4.9) X10*3/uL [place] # (Auto) 0.9 (0.1-1.2) X10*3/uL Eos # (Auto) 0.0 (0.0-0.4) X10*3/uL Baso # (Auto) 0.0 (0.0-0.2) X10*3/uL Abs Immat Gran (auto) 0.08 H (0.00-0.03) X10*3/uL Absolute Neuts (auto) 11.5 H (2.0-8.3) X10*3/uL Absolute Nucleated RBC 0.000 (0.0-0.012) X10*3/uL Nucleated RBC % (auto) 0.0 (0.0-0.2) /100WBC Smear Tech's Comments VERIFIED PT (9.9-13.0) SEC INR (0.9-1.1) Sodium 115 L* (135-145) mmol/L Potassium 2.2 L* D (3.3-5.1) mmol/L Chloride 61 L D (96-108) mmol/L Carbon Dioxide 31 H (22-29) mmol/L Anion Gap 25 H (12-20) BUN 20 H D (9-16) mg/dL Creatinine 1.14 (0.5-1.4) mg/dL Estim Creat Clear Calc 67.9 Estimated GFR > 60 Random Glucose 87 (60-115) mg/dL Calcium 8.6 D (8.4-10.2) mg/dL Magnesium 1.9 (1.6-2.6) mg/dL Total Bilirubin 1.1 H (0.0-1.0) mg/dL Direct Bilirubin 0.7 H (0.0-0.5) mg/dL AST 36 (5-37) U/L ALT 18 (0-40) U/L Alkaline Phosphatase 150 H D (39-117) U/L Ammonia 21 (13-55) umol/L Troponin I High Sens (<3.5-35.0) ng/L Total Protein 6.7 (6.5-8.0) g/dL Albumin 3.7 (3.5-5.0) g/dL Ethyl Alcohol mg/dL COVID-19 ([facility]) (Negative) COVID-19 Clin Com 12/16/20 12/16/20 12/16/20 Range/Units 10:47 10:47 10:47 WBC (4.8-10.8) X10*3/uL RBC (4.60-5.80) X10*6/uL Hgb (14.0-18.0) g/dl Hct (42-52) % MCV (80-98) fL MCH (27.0-33.0) pg MCHC (31.0-36.0) g/dl RDW (11.0-16.0) % Plt Count (160-400) X10*3/uL MPV (9.4-12.4) fL Immature Gran % (Auto) (0.0-0.4) % Neut % (Auto) (45-73) % Lymph % (Auto) (20-40) % [place] % (Auto) (2-11) % Eos % (Auto) (0-4) % Baso % (Auto) (0-2) % Lymph # (Auto) (1.2-4.9) X10*3/uL [place] # (Auto) (0.1-1.2) X10*3/uL Eos # (Auto) (0.0-0.4) X10*3/uL Baso # (Auto) (0.0-0.2) X10*3/uL Abs Immat Gran (auto) (0.00-0.03) X10*3/uL Absolute Neuts (auto) (2.0-8.3) X10*3/uL Absolute Nucleated RBC (0.0-0.012) X10*3/uL Nucleated RBC % (auto) (0.0-0.2) /100WBC Smear Tech's Comments PT 9.9 (9.9-13.0) SEC INR 0.9 (0.9-1.1) Sodium (135-145) mmol/L Potassium (3.3-5.1) mmol/L Chloride (96-108) mmol/L Carbon Dioxide (22-29) mmol/L Anion Gap (12-20) BUN (9-16) mg/dL Creatinine (0.5-1.4) mg/dL Estim Creat Clear Calc Estimated GFR Random Glucose (60-115) mg/dL Calcium (8.4-10.2) mg/dL Magnesium (1.6-2.6) mg/dL Total Bilirubin (0.0-1.0) mg/dL Direct Bilirubin (0.0-0.5) mg/dL AST (5-37) U/L ALT (0-40) U/L Alkaline Phosphatase (39-117) U/L Ammonia (13-55) umol/L Troponin I High Sens 62.7 H* D (<3.5-35.0) ng/L Total Protein (6.5-8.0) g/dL Albumin (3.5-5.0) g/dL Ethyl Alcohol < 10 mg/dL COVID-19 ([facility]) (Negative) COVID-19 Clin Com 12/16/20 Range/Units 10:49 WBC (4.8-10.8) X10*3/uL RBC (4.60-5.80) X10*6/uL Hgb (14.0-18.0) g/dl Hct (42-52) % MCV (80-98) fL MCH (27.0-33.0) pg MCHC (31.0-36.0) g/dl RDW (11.0-16.0) % Plt Count (160-400) X10*3/uL MPV (9.4-12.4) fL Immature Gran % (Auto) (0.0-0.4) % Neut % (Auto) (45-73) % Lymph % (Auto) (20-40) % [place] % (Auto) (2-11) % Eos % (Auto) (0-4) % Baso % (Auto) (0-2) % Lymph # (Auto) (1.2-4.9) X10*3/uL [place] # (Auto) (0.1-1.2) X10*3/uL Eos # (Auto) (0.0-0.4) X10*3/uL Baso # (Auto) (0.0-0.2) X10*3/uL Abs Immat Gran (auto) (0.00-0.03) X10*3/uL Absolute Neuts (auto) (2.0-8.3) X10*3/uL Absolute Nucleated RBC (0.0-0.012) X10*3/uL Nucleated RBC % (auto) (0.0-0.2) /100WBC Smear Tech's Comments PT (9.9-13.0) SEC INR (0.9-1.1) Sodium (135-145) mmol/L Potassium (3.3-5.1) mmol/L Chloride (96-108) mmol/L Carbon Dioxide (22-29) mmol/L Anion Gap (12-20) BUN (9-16) mg/dL Creatinine (0.5-1.4) mg/dL Estim Creat Clear Calc Estimated GFR Random Glucose (60-115) mg/dL Calcium (8.4-10.2) mg/dL Magnesium (1.6-2.6) mg/dL Total Bilirubin (0.0-1.0) mg/dL Direct Bilirubin (0.0-0.5) mg/dL AST (5-37) U/L ALT (0-40) U/L Alkaline Phosphatase (39-117) U/L Ammonia (13-55) umol/L Troponin I High Sens (<3.5-35.0) ng/L Total Protein (6.5-8.0) g/dL Albumin (3.5-5.0) g/dL Ethyl Alcohol mg/dL COVID-19 ([facility]) Negative (Negative) COVID-19 Clin Com See Note Imaging Data CT scan - head: Radiologist's impression: FINDINGS: There is no evidence of acute intracranial hemorrhage or territorial infarction. No abnormal mass effect or midline shift is seen. Huertas to white matter differentiation is well preserved. No extra-axial fluid collections are identified. The lateral ventricles are symmetrical but moderately enlarged. There is diffuse periventricular hypodensity in both cerebral hemispheres without mass effect. The osseous structures and soft tissues are normal. The paranasal sinuses and mastoid air cells are well-aerated. ? CT/CT head/brain wo con IMPRESSION: No acute intracranial process seen. Critical Care Time Critical Care Time Critical Care Time: Yes Total Critical Care Time: 60 Attestation: 60 minutes of critical care time were spent in the direct patient care, stabilization and consults Discharge Plan Discharge Clinical Impression: Acute hyponatremia, Acute hypokalemia, Elevated troponin Patient Disposition: Admitted As Inpatient Prescriptions: No Action oxcarbazepine 150 mg tablet 1 tab PO TID RF: 0 thiamine HCl (vitamin B1) [Vitamin B-1] 100 mg tablet 1 tab PO DAILY RF: 0 aspirin 81 mg tablet,delayed release (DR/EC) 1 tab PO DAILY RF: 0 folic acid 1 mg tablet 1 tab PO DAILY RF: 0 fluoxetine 20 mg capsule 2 cap PO QAM RF: 0 multivitamin Tablet 1 tab PO DAILY RF: 0 meloxicam 7.5 mg tablet 1 tab PO BID RF: 0 albuterol sulfate [ProAir HFA] 90 mcg/actuation HFA aerosol inhaler 2 puff PO Q4H PRN (Reason: Shortness Of Breath) RF: 0
--- NOTE | 2020-12-16 09:48 | ECG_ITS ---
Test Reason : WEAKNESS Blood Pressure : / mmHG Vent. Rate : 081 BPM Atrial Rate : 081 BPM P-R Int : 144 ms QRS Dur : 084 ms QT Int : 406 ms P-R-T Axes : 082 064 201 degrees QTc Int : 471 ms Poor data quality, interpretation may be adversely affected Sinus rhythm with Premature atrial complexes Biatrial enlargement Cannot rule out Inferior infarct , age undetermined ST & T wave abnormality, consider anterolateral ischemia Abnormal ECG When compared with ECG of 20-SEP-2020 17:45, T wave inversion now evident in Anterolateral leads Non-specific change in ST segment in Anterolateral leads Referred By: Leeann Rosado Electronically Signed By:VARSHA GOINS
--- NOTE | 2020-12-16 10:14 | PC.NURSE ---
pt wearing a very soiled depends, full of urine and feces, according to the pt he has been in bed the last 4 days wearing the same brief, not getting out of bed due to weakness and multiple falls, coccyx area and perinea area very red and irritated looking, right hip also with some abrasions, sandy care performed and barrier cream applied. pt frail in appearance, oral mucosal dry.
[2020-12-16 10:56] LABS: Basophils Percent Auto 0.2 % (0-2); Eosinophils Percent Auto 0.1 % (0-4); Hematocrit 35.7 % (42-52); Imm Gran Abs Auto 0.08 X10*3/uL (0.00-0.03); Imm Gran Pct Auto 0.6 % (0.0-0.4); Lymphocytes Absolute Auto 0.3 X10*3/uL (1.2-4.9); Lymphocytes Percent Auto 2.6 % (20-40); MANUAL DIFF FLAG SCAN; Mean Platelet Volume 8.8 fL (9.4-12.4); Monocytes Absolute Auto 0.9 X10*3/uL (0.1-1.2); Monocytes Percent Auto 6.8 % (2-11); Neutrophils Absolute Auto 11.5 X10*3/uL (2.0-8.3); Neutrophils Percent Auto 89.7 % (45-73); Platelet Count 174 X10*3/uL (160-400); Red Cell Distribution Width 13.3 % (11.0-16.0); SCAN SMEAR FLAG 1; White Blood Count 12.8 X10*3/uL (4.8-10.8)
[2020-12-16 11:02] LABS: INTERNATIONAL NORM RATIO 0.9 (0.9-1.1); Prothrombin Time 9.9 SEC (9.9-13.0)
[2020-12-16 11:03] LABS: Ammonia 21 umol/L (13-55)
[2020-12-16 11:10] LABS: COVID-19 Test Negative (Negative)
[2020-12-16 11:10] LABS: Ethanol < 10 mg/dL
[2020-12-16 11:26] LABS: Troponin-I High Sensitivity 62.7 ng/L (<3.5-35.0)
[2020-12-16 11:27] LABS: Alanine Aminotransferase 18 U/L (0-40); Albumin Level 3.7 g/dL (3.5-5.0); Alkaline Phosphatase 150 U/L (39-117); Anion Gap 25 (12-20); Aspartate Amino Transferase 36 U/L (5-37); Bilirubin Direct 0.7 mg/dL (0.0-0.5); Bilirubin Total 1.1 mg/dL (0.0-1.0); Blood Urea Nitrogen 20 mg/dL (9-16); Calcium 8.6 mg/dL (8.4-10.2); Carbon Dioxide 31 mmol/L (22-29); Chloride 61 mmol/L (96-108); Creatinine Clr Calc Pharmacy 67.9; Estimated Glomerular Filt Rate > 60; Glucose Random 87 mg/dL (60-115); Magnesium 1.9 mg/dL (1.6-2.6); Potassium 2.2 mmol/L (3.3-5.1); Sodium 115 mmol/L (135-145); Total Protein 6.7 g/dL (6.5-8.0)
[2020-12-16 11:33] LABS: Mean Corpuscular Hemoglobin 28.6 pg (27.0-33.0)
[2020-12-16 11:34] LABS: Mean Corpuscular HGB Conc 33.6 g/dl (31.0-36.0)
[2020-12-16 11:35] LABS: SLIDE REVIEW VERIFIED
--- NOTE | 2020-12-16 11:55 | PHA.MEDREC ---
Pharmacy Consult ? Medication Reconciliation Pharmacy has completed the medication reconciliation. Patient was discharged from here in September. Shane Benitez wrote prescriptions for amlodipine, magnesium oxide and potassium however the prescriptions were not picked up at the pharmacy. Patient's girlfriend had no idea what those medications were. All other medications were verified by patient's girlfriend Maria C. Antonia Guidry, PharmD
[2020-12-16 12:32] LABS: Appearance Urine CLOUDY; Color Urine YELLOW; Glucose Urine UA NEG (NEG); Leukocyte Esterase Urine 2+ (NEG); Nitrite Urine NEG (NEG); UACC Culture Trigger YES; Urine Blood 3+ (NEG); Urine Ketones 15 MG/DL (NEG); Urine Protein 3+ MG/DL (NEG-TRACE)
[2020-12-16 12:39] LABS: Bacteria Urine 3+ /LPF; WBC Clumps Urine NOTED; WBC Urine TNTC /HPF (0-4)
[2020-12-16 12:40] LABS: Mucus Urine 2+ /LPF
[2020-12-16 12:44] LABS: Amphetamine Screen Urine Not Detected (Not Detect); Barbiturates, Urine Not Detected (Not Detect); Benzodiazepines Screen Urine Not Detected (Not Detect); Cannabinoid Screen Urine Not Detected (Not Detect); Cocaine Screen Urine Not Detected (Not Detect); Fentanyl, urine Not Detected (Not Detect); Opiate Screen Urine Not Detected (Not Detect); Phencyclidine Screen Urine Not Detected (Not Detect)
[2020-12-16 12:47] LABS: Sodium Urine Random < 20.0 mmol/L
[2020-12-16 12:47] LABS: Osmolality, Serum 239 mosm/kg (281-305)
[2020-12-16 12:51] LABS: Osmolality Urine 288 mosm/kg (373-1093)
--- NOTE | 2020-12-16 13:20 | MHC.RECOVSUP ---
? Reason for consult:Continuity of care o Current location: Bed 12 o Identified substance use concern:ETOH - Withdrawal - Seeking ATS (detox) - Support ? Intervention: o Harm reduction discussion ? Plan: o Referral to [facility] o Follow up tomorrow o Patient to follow up with [facility] after discharge ? Additional information:Patient being admitted, Pt. has an altered mental status, unable to hold a conversation.
--- NOTE | 2020-12-16 13:32 | PM.CCHP ---
History of Present Illness Date of Service: 12/16/20 Attending physician on admission: Eileen Hernandez Chief Complaint: altered mental status and frequent falling 60-year-old male cachectic appearance apparently chronic smoker with COPD as well as chronic alcoholic who was last drink by his admission is 3-4 days earlier but was noted by his significant other to be stumbling more with a clumsy gait and somewhat altered mental status background history of alcohol withdrawal seizures and apparently takes an atypical antipsychotic as well as an SSRI antidepressant Review of Systems Review of Systems: 10 point review of systems negative denies constitutional complaints denies fever chills Yes all other systems are reviewed and are negative PMFSH Past Medical History Medical History (Updated 12/16/20 @ 13:43 by Eileen Hernandez MD) COPD (chronic obstructive pulmonary disease) H/O ETOH abuse HCV (hepatitis C virus) Heart disease Seizure disorder Surgical History Surgical History H/O left wrist surgery Social History Social History (Updated 09/21/20 @ 07:11 by Pedro Luis North MD) Household Members: Significant Other Housing: Apartment Alcohol intake: current Patient Tobacco Use Status: Current everyday Tobacco user Tobacco use type: Cigarette Cigarette Packs Per Day: 0.5 Cigarettes Per Day: 10.0 Use of substances other than those prescribed or required for medical reasons: No Advance Directives: No Advance Directives Information Provided: No service: No Meds Allergies Allergy/AdvReac Type Severity Reaction Status Date / Time acetaminophen [From PERCOCET] Allergy Mild Rash Verified 09/21/20 17:29 oxycodone [From PERCOCET] Allergy Mild Rash Verified 09/21/20 17:29 Penicillins [PENICILLINS] Allergy Mild Rash Verified 09/21/20 17:29 Active Medications: Current Medications Albuterol/Ipratropium (Albuterol/Iprat 2.5/0.5mg 3 Ml Ampul.Neb) 3 ml INHALE 5XD CHEPE Famotidine (Famotidine/Pf 20 Mg/2 Ml Vial) 20 mg IVPUSH BID CHEPE Potassium Chloride 40 meq/ (Sodium Chloride) 500 mls @ 250 mls/hr IVCONT .Q2H CHEPE Stop: 12/16/20 15:29 Meropenem 1 gm/ Sodium (Chloride) 100 mls @ 100 mls/hr IV ONCE ONE Stop: 12/16/20 14:18 Pharmacy Consult (Consult Rx Perform Med Rec) 1 each MISCELLANE ONCE PRN PRN Reason: Consult order Home Medications Medication Instructions Recorded Confirmed Last Taken Type aspirin 81 mg tablet,delayed 1 tab PO DAILY 09/20/20 12/16/20 12/15/20 History release fluoxetine 20 mg capsule 2 cap PO QAM 09/20/20 12/16/20 12/15/20 History folic acid 1 mg tablet 1 tab PO DAILY 09/20/20 12/16/20 12/15/20 History oxcarbazepine 150 mg tablet 1 tab PO TID 09/20/20 12/16/20 12/15/20 History thiamine HCl (vitamin B1) 100 mg 1 tab PO DAILY 09/20/20 12/16/20 12/15/20 History tablet (Vitamin B-1) albuterol sulfate 90 mcg/actuation 2 puff PO Q4H PRN 12/16/20 12/16/20 Unknown History aerosol inhaler (ProAir HFA) meloxicam 7.5 mg tablet 1 tab PO BID 12/16/20 12/16/20 12/15/20 History multivitamin 1 tab PO DAILY 12/16/20 12/16/20 12/15/20 History Physical Exam Vital Signs: Vital Signs: Last Vital Signs Temp 97.7 F 12/16/20 09:47 Pulse 87 12/16/20 12:22 Resp 18 12/16/20 12:22 BP 185/105 H 12/16/20 12:22 Pulse Ox 95 12/16/20 12:22 Body Mass Index 22.1 hypertensive with systolic pressure of 185 normal sinus rhythm with diffuse nonspecific ST-T changes and what appears to be possible QT prolongation may be AU wave related to hypokalemia oriented to place and person nonfocal neurologically with normal tone neck veins are flat and bedside echo showing normal LV function without segmental wall motion abnormality and ejection fraction greater than 60% with normal right ventricular size and function and no primary valve or pericardial disease and inferior vena cava is flat implying hypovolemia lungs by chest x-ray are clear and consistent with COPD but no adventitious breath sounds abdomen is soft scaphoid no organomegaly skin is intact Results Labs CBC and Chem 7: 12/16/20 10:47 12/16/20 10:47 Labs: Laboratory Results - last 24 hr 12/16/20 12/16/20 12/16/20 10:46 10:47 10:47 MCV 85.0 MCH 28.6 MCHC 33.6 RDW 13.3 Plt Count 174 MPV 8.8 L Immature Gran % (Auto) 0.6 H Neut % (Auto) 89.7 H Lymph % (Auto) 2.6 L [place] % (Auto) 6.8 Eos % (Auto) 0.1 Baso % (Auto) 0.2 Lymph # (Auto) 0.3 L [place] # (Auto) 0.9 Eos # (Auto) 0.0 Baso # (Auto) 0.0 Abs Immat Gran (auto) 0.08 H Absolute Neuts (auto) 11.5 H Absolute Nucleated RBC 0.000 Nucleated RBC % (auto) 0.0 Smear Tech's Comments VERIFIED PT INR Anion Gap 25 H Estim Creat Clear Calc 67.9 Estimated GFR > 60 Random Glucose 87 Osmolality Calcium 8.6 D Magnesium 1.9 Total Bilirubin 1.1 H Direct Bilirubin 0.7 H AST 36 ALT 18 Alkaline Phosphatase 150 H D Ammonia 21 Troponin I High Sens Total Protein 6.7 Albumin 3.7 Urine Color Urine Appearance Urine pH Ur Specific [place] Urine Protein Urine Glucose (UA) Urine Ketones Urine Blood Urine Nitrite Ur Leukocyte Esterase Urine RBC Urine WBC Urine WBC Clumps Ur Squamous Epith Cells Urine Bacteria Urine Mucus Urine Osmolality Ur Random Sodium Urine Opiates Screen Urine Fentanyl Screen Ur Barbiturates Screen Ur Phencyclidine Scrn Ur Amphetamines Screen U Benzodiazepines Scrn Urine Cocaine Screen U Marijuana (THC) Screen Ethyl Alcohol COVID-19 ([facility]) COVID-19 Clin Com 12/16/20 12/16/20 12/16/20 10:47 10:47 10:47 MCV MCH MCHC RDW Plt Count MPV Immature Gran % (Auto) Neut % (Auto) Lymph % (Auto) [place] % (Auto) Eos % (Auto) Baso % (Auto) Lymph # (Auto) [place] # (Auto) Eos # (Auto) Baso # (Auto) Abs Immat Gran (auto) Absolute Neuts (auto) Absolute Nucleated RBC Nucleated RBC % (auto) Smear Tech's Comments PT 9.9 INR 0.9 Anion Gap Estim Creat Clear Calc Estimated GFR Random Glucose Osmolality Calcium Magnesium Total Bilirubin Direct Bilirubin AST ALT Alkaline Phosphatase Ammonia Troponin I High Sens 62.7 H* D Total Protein Albumin Urine Color Urine Appearance Urine pH Ur Specific [place] Urine Protein Urine Glucose (UA) Urine Ketones Urine Blood Urine Nitrite Ur Leukocyte Esterase Urine RBC Urine WBC Urine WBC Clumps Ur Squamous Epith Cells Urine Bacteria Urine Mucus Urine Osmolality Ur Random Sodium Urine Opiates Screen Urine Fentanyl Screen Ur Barbiturates Screen Ur Phencyclidine Scrn Ur Amphetamines Screen U Benzodiazepines Scrn Urine Cocaine Screen U Marijuana (THC) Screen Ethyl Alcohol < 10 COVID-19 ([facility]) COVID-19 [employer] 12/16/20 12/16/20 12/16/20 10:49 12:12 12:12 MCV MCH MCHC RDW Plt Count MPV Immature Gran % (Auto) Neut % (Auto) Lymph % (Auto) [place] % (Auto) Eos % (Auto) Baso % (Auto) Lymph # (Auto) [place] # (Auto) Eos # (Auto) Baso # (Auto) Abs Immat Gran (auto) Absolute Neuts (auto) Absolute Nucleated RBC Nucleated RBC % (auto) Smear Tech's Comments PT INR Anion Gap Estim Creat Clear Calc Estimated GFR Random Glucose Osmolality Calcium Magnesium Total Bilirubin Direct Bilirubin AST ALT Alkaline Phosphatase Ammonia Troponin I High Sens Total Protein Albumin Urine Color YELLOW Urine Appearance CLOUDY Urine pH 6.0 Ur Specific [place] 1.020 Urine Protein 3+ H Urine Glucose (UA) NEG Urine Ketones 15 Urine Blood 3+ H Urine Nitrite NEG Ur Leukocyte Esterase 2+ H Urine RBC 15-29 H Urine WBC TNTC H Urine WBC Clumps NOTED Ur Squamous Epith Cells NONE Urine Bacteria 3+ Urine Mucus 2+ Urine Osmolality Ur Random Sodium Urine Opiates Screen Not Detected Urine Fentanyl Screen Not Detected Ur Barbiturates Screen Not Detected Ur Phencyclidine Scrn Not Detected Ur Amphetamines Screen Not Detected U Benzodiazepines Scrn Not Detected Urine Cocaine Screen Not Detected U Marijuana (THC) Screen Not Detected Ethyl Alcohol COVID-19 ([facility]) Negative COVID-19 [employer] Com See Note 12/16/20 12/16/20 12/16/20 12:12 12:12 12:17 MCV MCH MCHC RDW Plt Count MPV Immature Gran % (Auto) Neut % (Auto) Lymph % (Auto) [place] % (Auto) Eos % (Auto) Baso % (Auto) Lymph # (Auto) [place] # (Auto) Eos # (Auto) Baso # (Auto) Abs Immat Gran (auto) Absolute Neuts (auto) Absolute Nucleated RBC Nucleated RBC % (auto) Smear Tech's Comments PT INR Anion Gap Estim Creat Clear Calc Estimated GFR Random Glucose Osmolality 239 L Calcium Magnesium Total Bilirubin Direct Bilirubin AST ALT Alkaline Phosphatase Ammonia Troponin I High Sens Total Protein Albumin Urine Color Urine Appearance Urine pH Ur Specific [place] Urine Protein Urine Glucose (UA) Urine Ketones Urine Blood Urine Nitrite Ur Leukocyte Esterase Urine RBC Urine WBC Urine WBC Clumps Ur Squamous Epith Cells Urine Bacteria Urine Mucus Urine Osmolality 288 L Ur Random Sodium < 20.0 Urine Opiates Screen Urine Fentanyl Screen Ur Barbiturates Screen Ur Phencyclidine Scrn Ur Amphetamines Screen U Benzodiazepines Scrn Urine Cocaine Screen U Marijuana (THC) Screen Ethyl Alcohol COVID-19 ([facility]) COVID-19 Clin Com Imaging Radiologist's Impressions: Impressions Head CT 12/16/20 09:47 IMPRESSION: No acute intracranial process seen. Chest X-Ray 12/16/20 11:48 IMPRESSION: Unremarkable chest exam. Assessment and Plan (1) Acute hyponatremia: Status: Acute (2) Acute hypokalemia: Status: Acute (3) Elevated troponin: Status: Acute (4) Arachnoid cyst: Status: Acute (5) Cerebral microvascular disease: Status: Acute (6) Alcoholism: Status: Acute (7) Seizure disorder: Status: Acute (8) COPD (chronic obstructive pulmonary disease): Status: Acute (9) HCV (hepatitis C virus): Status: Acute (10) Acute hyponatremia: Status: Acute (11) Acute hypokalemia: Status: Acute (12) Encephalopathy: Status: Acute (13) Urinary tract infection: Status: Acute for urinary tract infection 1 dose of meropenem due to QT prolongation and pen allergy aggressive volume replacement with normal saline and potassium chloride and trach BMP to be sure we do not repair the sodium too quickly and keep him NPO for now observe for possible withdrawal seizures or other manifestations of delirium tremens and in addition start him on thiamine
[2020-12-16] MEDS: Famotidine/PF 20 MG/2 ML VIAL IVPUSH ×2 (15:45→20:38)
[2020-12-16] MEDS: Thiamine HCL 100 MG in 0.9 % Sodium Chloride 100 ML 202 MG IV (15:53)
[2020-12-16 18:15] LABS: Anion Gap 20 (12-20); Blood Urea Nitrogen 17 mg/dL (9-16); Calcium 7.7 mg/dL (8.4-10.2); Carbon Dioxide 29 mmol/L (22-29); Chloride 72 mmol/L (96-108); Creatinine Clr Calc Pharmacy 81.5; Estimated Glomerular Filt Rate > 60; Glucose Random 89 mg/dL (60-115); Potassium 2.6 mmol/L (3.3-5.1); Sodium 118 mmol/L (135-145)
[2020-12-16] MEDS: Potassium Chloride Packet 20 MEQ PACKET 40 MEQ PO (18:46)
[2020-12-16] MEDS: KCl 40 mEq in 0.9 % Sodium Chl 40 MEQ/1,000 ML IV.SOLN 100 MEQ IVCONT (18:47)
--- NOTE | 2020-12-16 19:20 | PC.NURSE ---
Pt is alert and oriented to person and place but vague on time. He follows commands but soon after forgets. Chose to put on icelandic channel but is cook islander speaking only. Pt's lytes re-drawn at 1730 and trending in the right direction. Seizure precautions in place. CIWA=5.
[2020-12-16] MEDS: LORazepam 2 MG/ML VIAL 1 MG IVPUSH (20:38)
[2020-12-16] MEDS: Albuterol/Iprat 2.5/0.5MG 3 ML AMPUL.NEB INHALE (21:21)
[2020-12-16] MEDS: hydrALAZINE HCl 20 MG/ML VIAL 10 MG IVPUSH (21:21)
[2020-12-16 23:08] LABS: Anion Gap 21 (12-20); Blood Urea Nitrogen 15 mg/dL (9-16); Calcium 7.8 mg/dL (8.4-10.2); Carbon Dioxide 27 mmol/L (22-29); Chloride 77 mmol/L (96-108); Creatinine Clr Calc Pharmacy 80.7; Estimated Glomerular Filt Rate > 60; Glucose Random 95 mg/dL (60-115); Potassium 2.6 mmol/L (3.3-5.1); Sodium 122 mmol/L (135-145)
[2020-12-16] MEDS: LORazepam 2 MG/ML VIAL IVPUSH (23:45)
[2020-12-17] VITALS (28 sets, daily range): BP systolic 135–214; BP diastolic 87–126; PULSE 84–112; RESP 10–20; TEMP 36.1–37.3; O2SAT 96–100; BMI 22.2
[2020-12-17] MEDS: Potassium Chloride/H20 10 MEQ/100 ML PIGGYBACK 100 MEQ IV ×4 (00:57→04:08)
[2020-12-17] MEDS: hydrALAZINE HCl 20 MG/ML VIAL 10 MG IVPUSH ×2 (01:03→10:09)
--- NOTE | 2020-12-17 02:16 | PC.NURSE ---
CARE ASSUMED 23:15..AWAKE..ORIENTED TO PERSON/PLACE...VAGUE RESPONSES TO OTHER QUESTIONS...TREMULOUS...BP REMAINS ELEVATED....NS 0.9% 1000/KCL 40 MEQ 100 CC/HR...SOARES YELLOW URINE....NSR/S.TACH HR 90'S-100'S...ICU LABORER ADJUSTABLE [employer] JOIST PRESENT...ATIVAN 2MG PRN ORDERED/GIVEN...BP REMAINS ELEVATED...PRN HYDRALAZINE ORDERED/GIVEN WITH DECREASED BP...BP GOAL PER LABORER ADJUSTABLE STEEL JOIST= SBP<180...HS LABS REVIEWED...REMAINS NPO...KCL 10 MEQ/100ML X4 BAGS ORDERED...MAINTANANCE FLUID TO BE HELD DURING KCL BOLUSES PER LABORER ADJUSTABLE STEEL JOIST...
[2020-12-17] MEDS: KCl 40 mEq in 0.9 % Sodium Chl 40 MEQ/1,000 ML IV.SOLN 100 MEQ IVCONT ×2 (05:11→15:34)
[2020-12-17 05:45] LABS: Hematocrit 32.4 % (42-52); MANUAL DIFF FLAG SCAN; Mean Corpuscular Volume 86.6 fL (80-98); PLT CLUMP 1; Red Blood Count 3.74 X10*6/uL (4.60-5.80); Red Cell Distribution Width 13.3 % (11.0-16.0); SCAN SMEAR FLAG 1
[2020-12-17 05:47] LABS: Basophils Percent Auto 0.2 % (0-2); Imm Gran Abs Auto 0.11 X10*3/uL (0.00-0.03); Imm Gran Pct Auto 0.9 % (0.0-0.4); Lymphocytes Absolute Auto 0.4 X10*3/uL (1.2-4.9); Lymphocytes Percent Auto 3.2 % (20-40); Mean Platelet Volume 9.2 fL (9.4-12.4); Monocytes Percent Auto 8.2 % (2-11); Neutrophils Percent Auto 87.5 % (45-73); Platelet Count 157 X10*3/uL (160-400); White Blood Count 12.6 X10*3/uL (4.8-10.8)
[2020-12-17] MEDS: Albuterol/Iprat 2.5/0.5MG 3 ML AMPUL.NEB INHALE ×2 (05:50→12:41)
[2020-12-17 05:54] LABS: Ammonia 37 umol/L (13-55)
[2020-12-17 06:08] LABS: Alanine Aminotransferase 16 U/L (0-40); Albumin Level 3.3 g/dL (3.5-5.0); Alkaline Phosphatase 134 U/L (39-117); Anion Gap 21 (12-20); Aspartate Amino Transferase 35 U/L (5-37); Bilirubin Total 0.9 mg/dL (0.0-1.0); Blood Urea Nitrogen 14 mg/dL (9-16); Calcium 7.8 mg/dL (8.4-10.2); Carbon Dioxide 24 mmol/L (22-29); Chloride 80 mmol/L (96-108); Creatinine Clr Calc Pharmacy 79.8; Estimated Glomerular Filt Rate > 60; Glucose Random 110 mg/dL (60-115); Magnesium 1.9 mg/dL (1.6-2.6); Phosphorus 1.2 mg/dL (2.7-4.5); Potassium 3.3 mmol/L (3.3-5.1); Sodium 122 mmol/L (135-145); Total Protein 6.2 g/dL (6.5-8.0)
[2020-12-17 06:36] LABS: Hemoglobin 10.9 g/dl (14.0-18.0)
[2020-12-17 06:37] LABS: Mean Corpuscular HGB Conc 33.5 g/dl (31.0-36.0)
[2020-12-17 06:41] LABS: SLIDE REVIEW VERIFIED
--- NOTE | 2020-12-17 07:08 | P.CDIC_ITS ---
CDI Concurrent Query Documentation Clarification: PHYSICIAN'S DOCUMENTATION REQUEST Date of Query: 12/17/20 0709 Patient Name: Luan Mitchell Admit Date: 12/16/20 Dear Doctor, A review of the medical record indicates additional documentation may be needed. Please review below and update the documentation accordingly. Clinical Indicators: Risk Factors/Clinical Indicators/Treatments ICU NOTE: 12/16 - Assessment/plan: encephalopathy Alcohol abuse, remains confused, altered mental status. UTI - NPO fpr possible withdrawal seizure vs. other manifestations of delirium tremons. Based on the above, could you clarify in the Progress Notes which, if any of the following, is the most likely etiology of the confusion/altered mental status? * Encephalopathy - indicate type such as metabolic, toxic, alcoholic, hypertensive, etc. * Other etiology (please specify) * Unable to determine Use of terms such as suspected, likely, concern for, or probable (associated with a specific diagnosis that is being evaluated, monitored, or treated as if it exists) are acceptable and can be coded in the inpatient setting, when documented at the time of discharge. Thank you, Sonam Baca [facility], [facility] Extension: [phone] Please use your independent medical judgment in providing your response. THIS QUERY IS PART OF THE PERMANENT MEDICAL RECORD
[2020-12-17] MEDS: Thiamine HCL 100 MG in 0.9 % Sodium Chloride 100 ML 200 MG IV (08:09)
[2020-12-17] MEDS: Famotidine/PF 20 MG/2 ML VIAL IVPUSH ×2 (08:10→20:49)
[2020-12-17] MEDS: LORazepam 2 MG/ML VIAL IVPUSH (10:09)
--- NOTE | 2020-12-17 10:39 | P.PNCC_ITS ---
Subjective Subjective Date of Service: 12/17/20 Interval History: 60-year-old chronic smoker and chronic alcoholic with history of of alcohol withdrawal seizures in the in the past presented with altered mental status and frequent falling was profoundly hyponatremic and hypokalemic and volume depleted and has had no p.o. intake really for 2 days prior including last alcohol drink and he is also known to be hepatitis-C positive no history of treatment with underlying COPD and in the emergency room urinalysis was consistent with a urinary tract infection as well although afebrile Bedside echo showed a flat IVC with normal LV and RV function and his urinalysis was consistent with hypovolemia and he was treated with normal saline as well as KCl replacement and he is replete Ng at a comfortable pace and started to become confused climbing up on the CIWA scale and was started on p.r.n. Ativan and right now he is remaining calm Critical Care Time (minutes): 45 Physical Exam Vital Signs: Vital Signs: Last Vital Signs Temp 97.7 F 12/17/20 08:00 Pulse 103 H 12/17/20 10:09 Resp 12 12/17/20 10:00 BP 201/126 H 12/17/20 10:09 Pulse Ox 99 12/17/20 10:00 Body Mass Index 22.2 Response to verbal but clearly somewhat sedated and nonfocal neurologically Hypertensive but no neck vein distension and he has good bilateral carotid upstrokes Chest with diminished bilateral breath sounds but no adventitious sounds Abdomen is soft no good bowel sounds no organomegaly The skin intact Objective Data Labs CBC & Chem 7: 12/17/20 05:22 12/17/20 05:22 Labs: Laboratory Results - last 24 hr 12/16/20 12/16/20 12/16/20 10:46 10:47 10:47 WBC 12.8 H RBC 4.20 L D Hgb 12.0 L D Hct 35.7 L D MCV 85.0 MCH 28.6 MCHC 33.6 RDW 13.3 Plt Count 174 MPV 8.8 L Immature Gran % (Auto) 0.6 H Neut % (Auto) 89.7 H Lymph % (Auto) 2.6 L [place] % (Auto) 6.8 Eos % (Auto) 0.1 Baso % (Auto) 0.2 Lymph # (Auto) 0.3 L [place] # (Auto) 0.9 Eos # (Auto) 0.0 Baso # (Auto) 0.0 Abs Immat Gran (auto) 0.08 H Absolute Neuts (auto) 11.5 H Absolute Nucleated RBC 0.000 Nucleated RBC % (auto) 0.0 Smear Tech's Comments VERIFIED PT INR Sodium 115 L* Potassium 2.2 L* D Chloride 61 L D Carbon Dioxide 31 H Anion Gap 25 H BUN 20 H D Creatinine 1.14 Estim Creat Clear Calc 67.9 Estimated GFR > 60 Random Glucose 87 Osmolality Calcium 8.6 D Phosphorus Magnesium 1.9 Total Bilirubin 1.1 H Direct Bilirubin 0.7 H AST 36 ALT 18 Alkaline Phosphatase 150 H D Ammonia 21 Troponin I High Sens Total Protein 6.7 Albumin 3.7 Urine Color Urine Appearance Urine pH Ur Specific [place] Urine Protein Urine Glucose (UA) Urine Ketones Urine Blood Urine Nitrite Ur Leukocyte Esterase Urine RBC Urine WBC Urine WBC Clumps Ur Squamous Epith Cells Urine Bacteria Urine Mucus Urine Osmolality Ur Random Sodium Urine Opiates Screen Urine Fentanyl Screen Ur Barbiturates Screen Ur Phencyclidine Scrn Ur Amphetamines Screen U Benzodiazepines Scrn Urine Cocaine Screen U Marijuana (THC) Screen Ethyl Alcohol COVID-19 ([facility]ITA) COVID-19 Clin Com 12/16/20 12/16/20 12/16/20 10:47 10:47 10:47 WBC RBC Hgb Hct MCV MCH MCHC RDW Plt Count MPV Immature Gran % (Auto) Neut % (Auto) Lymph % (Auto) [place] % (Auto) Eos % (Auto) Baso % (Auto) Lymph # (Auto) [place] # (Auto) Eos # (Auto) Baso # (Auto) Abs Immat Gran (auto) Absolute Neuts (auto) Absolute Nucleated RBC Nucleated RBC % (auto) Smear Tech's Comments PT 9.9 INR 0.9 Sodium Potassium Chloride Carbon Dioxide Anion Gap BUN Creatinine Estim Creat Clear Calc Estimated GFR Random Glucose Osmolality Calcium Phosphorus Magnesium Total Bilirubin Direct Bilirubin AST ALT Alkaline Phosphatase Ammonia Troponin I High Sens 62.7 H* D Total Protein Albumin Urine Color Urine Appearance Urine pH Ur Specific [place] Urine Protein Urine Glucose (UA) Urine Ketones Urine Blood Urine Nitrite Ur Leukocyte Esterase Urine RBC Urine WBC Urine WBC Clumps Ur Squamous Epith Cells Urine Bacteria Urine Mucus Urine Osmolality Ur Random Sodium Urine Opiates Screen Urine Fentanyl Screen Ur Barbiturates Screen Ur Phencyclidine Scrn Ur Amphetamines Screen U Benzodiazepines Scrn Urine Cocaine Screen U Marijuana (THC) Screen Ethyl Alcohol < 10 COVID-19 ([facility]ITA) COVID-19 [place] Com 12/16/20 12/16/20 12/16/20 10:49 12:12 12:12 WBC RBC Hgb Hct MCV MCH MCHC RDW Plt Count MPV Immature Gran % (Auto) Neut % (Auto) Lymph % (Auto) [place] % (Auto) Eos % (Auto) Baso % (Auto) Lymph # (Auto) [place] # (Auto) Eos # (Auto) Baso # (Auto) Abs Immat Gran (auto) Absolute Neuts (auto) Absolute Nucleated RBC Nucleated RBC % (auto) Smear Tech's Comments PT INR Sodium Potassium Chloride Carbon Dioxide Anion Gap BUN Creatinine Estim Creat Clear Calc Estimated GFR Random Glucose Osmolality Calcium Phosphorus Magnesium Total Bilirubin Direct Bilirubin AST ALT Alkaline Phosphatase Ammonia Troponin I High Sens Total Protein Albumin Urine Color YELLOW Urine Appearance CLOUDY Urine pH 6.0 Ur Specific [place] 1.020 Urine Protein 3+ H Urine Glucose (UA) NEG Urine Ketones 15 Urine Blood 3+ H Urine Nitrite NEG Ur Leukocyte Esterase 2+ H Urine RBC 15-29 H Urine WBC TNTC H Urine WBC Clumps NOTED Ur Squamous Epith Cells NONE Urine Bacteria 3+ Urine Mucus 2+ Urine Osmolality Ur Random Sodium Urine Opiates Screen Not Detected Urine Fentanyl Screen Not Detected Ur Barbiturates Screen Not Detected Ur Phencyclidine Scrn Not Detected Ur Amphetamines Screen Not Detected U Benzodiazepines Scrn Not Detected Urine Cocaine Screen Not Detected U Marijuana (THC) Screen Not Detected Ethyl Alcohol COVID-19 ([facility]ITA) Negative COVID-19 [employer] See Note 12/16/20 12/16/20 12/16/20 12:12 12:12 12:17 WBC RBC Hgb Hct MCV MCH MCHC RDW Plt Count MPV Immature Gran % (Auto) Neut % (Auto) Lymph % (Auto) [place] % (Auto) Eos % (Auto) Baso % (Auto) Lymph # (Auto) [place] # (Auto) Eos # (Auto) Baso # (Auto) Abs Immat Gran (auto) Absolute Neuts (auto) Absolute Nucleated RBC Nucleated RBC % (auto) Smear Tech's Comments PT INR Sodium Potassium Chloride Carbon Dioxide Anion Gap BUN Creatinine Estim Creat Clear Calc Estimated GFR Random Glucose Osmolality 239 L Calcium Phosphorus Magnesium Total Bilirubin Direct Bilirubin AST ALT Alkaline Phosphatase Ammonia Troponin I High Sens Total Protein Albumin Urine Color Urine Appearance Urine pH Ur Specific [place] Urine Protein Urine Glucose (UA) Urine Ketones Urine Blood Urine Nitrite Ur Leukocyte Esterase Urine RBC Urine WBC Urine WBC Clumps Ur Squamous Epith Cells Urine Bacteria Urine Mucus Urine Osmolality 288 L Ur Random Sodium < 20.0 Urine Opiates Screen Urine Fentanyl Screen Ur Barbiturates Screen Ur Phencyclidine Scrn Ur Amphetamines Screen U Benzodiazepines Scrn Urine Cocaine Screen U Marijuana (THC) Screen Ethyl Alcohol COVID-19 ([facility]ITA) COVID-19 [place] Com 12/16/20 12/16/20 12/17/20 17:49 22:49 05:22 WBC 12.6 H RBC 3.74 L Hgb 10.9 L Hct 32.4 L MCV 86.6 MCH 29.0 MCHC 33.5 RDW 13.3 Plt Count 157 L MPV 9.2 L Immature Gran % (Auto) 0.9 H Neut % (Auto) 87.5 H Lymph % (Auto) 3.2 L [place] % (Auto) 8.2 Eos % (Auto) 0.0 Baso % (Auto) 0.2 Lymph # (Auto) 0.4 L [place] # (Auto) 1.0 Eos # (Auto) 0.0 Baso # (Auto) 0.0 Abs Immat Gran (auto) 0.11 H Absolute Neuts (auto) 11.0 H Absolute Nucleated RBC 0.000 Nucleated RBC % (auto) 0.0 Smear Tech's Comments VERIFIED PT INR Sodium 118 L* 122 L Potassium 2.6 L 2.6 L Chloride 72 L 77 L Carbon Dioxide 29 27 Anion Gap 20 21 H BUN 17 H 15 Creatinine 0.95 0.96 Estim Creat Clear Calc 81.5 80.7 Estimated GFR > 60 > 60 Random Glucose 89 95 Osmolality Calcium 7.7 L D 7.8 L Phosphorus Magnesium Total Bilirubin Direct Bilirubin AST ALT Alkaline Phosphatase Ammonia Troponin I High Sens Total Protein Albumin Urine Color Urine Appearance Urine pH Ur Specific [place] Urine Protein Urine Glucose (UA) Urine Ketones Urine Blood Urine Nitrite Ur Leukocyte Esterase Urine RBC Urine WBC Urine WBC Clumps Ur Squamous Epith Cells Urine Bacteria Urine Mucus Urine Osmolality Ur Random Sodium Urine Opiates Screen Urine Fentanyl Screen Ur Barbiturates Screen Ur Phencyclidine Scrn Ur Amphetamines Screen U Benzodiazepines Scrn Urine Cocaine Screen U Marijuana (THC) Screen Ethyl Alcohol COVID-19 ([facility]ITA) COVID-19 [place] Com 12/17/20 12/17/20 05:22 05:22 WBC RBC Hgb Hct MCV MCH MCHC RDW Plt Count MPV Immature Gran % (Auto) Neut % (Auto) Lymph % (Auto) [place] % (Auto) Eos % (Auto) Baso % (Auto) Lymph # (Auto) [place] # (Auto) Eos # (Auto) Baso # (Auto) Abs Immat Gran (auto) Absolute Neuts (auto) Absolute Nucleated RBC Nucleated RBC % (auto) Smear Tech's Comments PT INR Sodium 122 L Potassium 3.3 D Chloride 80 L Carbon Dioxide 24 Anion Gap 21 H BUN 14 Creatinine 0.97 Estim Creat Clear Calc 79.8 Estimated GFR > 60 Random Glucose 110 Osmolality Calcium 7.8 L Phosphorus 1.2 L Magnesium 1.9 Total Bilirubin 0.9 Direct Bilirubin AST 35 ALT 16 Alkaline Phosphatase 134 H Ammonia 37 Troponin I High Sens Total Protein 6.2 L Albumin 3.3 L Urine Color Urine Appearance Urine pH Ur Specific [place] Urine Protein Urine Glucose (UA) Urine Ketones Urine Blood Urine Nitrite Ur Leukocyte Esterase Urine RBC Urine WBC Urine WBC Clumps Ur Squamous Epith Cells Urine Bacteria Urine Mucus Urine Osmolality Ur Random Sodium Urine Opiates Screen Urine Fentanyl Screen Ur Barbiturates Screen Ur Phencyclidine Scrn Ur Amphetamines Screen U Benzodiazepines Scrn Urine Cocaine Screen U Marijuana (THC) Screen Ethyl Alcohol COVID-19 ([facility]) COVID-19 Clin Com Quality Stroke Does the patient have a stroke diagnosis?: No VTE Prior VTE?: No VTE Risk Level:: Medical - low VTE Device Contraindication: N/A - Device Ordered VTE Drug Contraindication: Treatment Not Indicated Progress Note: A&P Assessment and plan (1) Urinary tract infection: Status: Acute (2) Encephalopathy: Status: Acute (3) Acute hyponatremia: Status: Acute (4) Acute hypokalemia: Status: Acute (5) Elevated troponin: Status: Acute (6) Arachnoid cyst: Status: Acute (7) Cerebral microvascular disease: Status: Acute (8) Alcoholism: Status: Acute (9) Seizure disorder: Status: Acute (10) COPD (chronic obstructive pulmonary disease): Status: Acute (11) HCV (hepatitis C virus): Status: Acute (12) Acute hyponatremia: Status: Acute (13) Acute hypokalemia: Status: Acute Assessment and Plan: Continuing with the KCL and sodium chloride replacement following the speed with which the to recover continue to follow the CIWA scale and treat him with the benzodiazepines for the time being
--- NOTE | 2020-12-17 10:53 | PC.NURSE ---
DR KRISHNA AWARE OF BP
--- NOTE | 2020-12-17 11:00 | MHC.CLN ---
RE: CONSULT PT IS MODERATELY MALNOURISHED PT WITH MILDLY DEPLETED MUSCLE MASS AND 16% NONSIGNIFICANT WT LOSS X 1 YEAR WITH ACUTE POOR PO INTAKE (SEE ALSO PREVIOUS WT HX) PT IS CURRENTLY NPO WHEN DIET ADVANCES; RECOMMEND ADDING ENSURE BID TO INCREASE KCALS PT WITH INCREASED NUTRITION RISK R/T PRESSURE INJURIES SUPPLEMENT WILL PROVIDE 700KCALS, 40G PROTEIN MONITOR PO INTAKE CLOSELY SEE ALSO CLINICAL NUTRITION ASSESSMENT
[2020-12-17 11:12] LABS: Anion Gap 16 (12-20); Blood Urea Nitrogen 14 mg/dL (9-16); Carbon Dioxide 29 mmol/L (22-29); Chloride 83 mmol/L (96-108); Creatinine Clr Calc Pharmacy 81.1; Estimated Glomerular Filt Rate > 60; Glucose Random 111 mg/dL (60-115); Potassium 3.1 mmol/L (3.3-5.1); Sodium 125 mmol/L (135-145)
--- NOTE | 2020-12-17 11:35 | PC.NURSE ---
PT CHANGED REPOSITIONED, INC OF STOOL. LINENS CHANGED BED BATH GIVEN. CONTINUE TO KEEP DR KRISHNA UPDATED ON PATIENTS STATUS
[2020-12-17] MEDS: Labetalol HCL 100 MG/20 ML VIAL 10 MG IVPUSH (12:21)
[2020-12-17] MEDS: levoFLOXacin/D5W 250 MG/50 ML PIGGYBACK 50 MG IV (12:24)
[2020-12-17] MEDS: cloNIDine 0.1 MG PATCH.TDWK TRANSDERMA (12:41)
[2020-12-17] MEDS: Potassium Phosphate 30 MMOL in 0.9 % Sodium Chloride 500 ML 85 MMOL IV (13:23)
--- NOTE | 2020-12-17 14:45 | PC.NURSE ---
PT SEEN BY CASE MANAGEMENT
--- NOTE | 2020-12-17 15:31 | MHC.CM.PN ---
Attempted to meet with pt to discuss d/c planning: pt extremely ubtunded: unable to respond to questions. HEEL SEAT FILLER states pt only responds to sternal rub at this time. She notes pt has multiple areas of bruising and skin impairment. Call placed to pt's next of contact a friend named Geni Julian - requested a call back to assist with CM assessment and d/c plan. Per EMR, pt with heavy ETOH hx: admitted with MS change and electrolyte abnormalities. Unaware of HCP status, MD or LEILA keyx status at this time. Will await call back from Gnei or pt to participate in conversation.
--- NOTE | 2020-12-17 16:13 | PC.NURSE ---
clonidine dc hospitalist started on phenobarb
[2020-12-17] MEDS: PHENobarbitaL sodium 130 MG/ML VIAL 164 MG IM (17:01)
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
[2020-12-17] MEDS: cefTRIAXone sodium 1 GM in 0.9 % Sodium Chloride 50 ML IV (18:13)
[2020-12-17] MEDS: PHENobarbitaL sodium 130 MG/ML VIAL 123 MG IM ×2 (20:50→23:53)
[2020-12-18] VITALS (9 sets, daily range): BP systolic 148–190; BP diastolic 90–112; PULSE 82–109; RESP 12–20; TEMP 35.9–36.7; O2SAT 94–100
--- NOTE | 2020-12-18 00:03 | PC.NURSE ---
2039; bp elevated 168/100, hr 90. Dr. Trotter made aware. No new orders at this time.
[2020-12-18] MEDS: KCl 40 mEq in 0.9 % Sodium Chl 40 MEQ/1,000 ML IV.SOLN 100 MEQ IVCONT ×2 (02:03→14:07)
[2020-12-18] MEDS: Albuterol/Iprat 2.5/0.5MG 3 ML AMPUL.NEB INHALE (07:59)
[2020-12-18] MEDS: Thiamine HCL 100 MG in 0.9 % Sodium Chloride 100 ML 200 MG IV (09:34)
[2020-12-18] MEDS: Famotidine/PF 20 MG/2 ML VIAL IVPUSH ×2 (09:34→21:19)
[2020-12-18] MEDS: Metoprolol Tartrate 50 MG TABLET PO ×2 (09:36→21:18)
[2020-12-18] MEDS: PHENobarbitaL 15 MG TABLET 45 MG PO ×2 (09:36→21:18)
[2020-12-18 11:21] LABS: MANUAL DIFF FLAG NO
[2020-12-18 11:48] LABS: Basophils Percent Auto 0.2 % (0-2); Eosinophils Absolute Auto 0.1 X10*3/uL (0.0-0.4); Eosinophils Percent Auto 0.4 % (0-4); Hematocrit 33.4 % (42-52); Hemoglobin 12.1 g/dl (14.0-18.0); Imm Gran Abs Auto 0.17 X10*3/uL (0.00-0.03); Imm Gran Pct Auto 1.4 % (0.0-0.4); Lymphocytes Absolute Auto 0.5 X10*3/uL (1.2-4.9); Lymphocytes Percent Auto 3.9 % (20-40); Mean Corpuscular HGB Conc 36.2 g/dl (31.0-36.0); Mean Corpuscular Hemoglobin 32.9 pg (27.0-33.0); Mean Corpuscular Volume 90.8 fL (80-98); Mean Platelet Volume 9.5 fL (9.4-12.4); Monocytes Absolute Auto 0.8 X10*3/uL (0.1-1.2); Monocytes Percent Auto 6.1 % (2-11); Red Blood Count 3.68 X10*6/uL (4.60-5.80); Red Cell Distribution Width 13.8 % (11.0-16.0); White Blood Count 12.5 X10*3/uL (4.8-10.8)
[2020-12-18 12:30] LABS: Anion Gap 16 (12-20); Blood Urea Nitrogen 9 mg/dL (9-16); Calcium 7.4 mg/dL (8.4-10.2); Carbon Dioxide 27 mmol/L (22-29); Chloride 97 mmol/L (96-108); Creatinine Clr Calc Pharmacy 91.6; Estimated Glomerular Filt Rate > 60; Glucose Random 100 mg/dL (60-115); Potassium 3.2 mmol/L (3.3-5.1); Sodium 137 mmol/L (135-145)
--- NOTE | 2020-12-18 12:58 | MHC.CM.PN ---
Male 60 DX AMS hyponatremia Patient lives w GF. She assists prn. He is incontinent of B+B. DP Home with resource info provided by [facility]. Pt will arrange transportation.
--- NOTE | 2020-12-18 15:31 | MHC.SL.SWA ---
Speech Pathologist Impression: Risk of Aspiration Oralpharyngeal Dysphagia Risk of Aspiration Due to: Poor PO Intake Liquid Consistency and Strategies for Safe Swallow: Liquid Intake Recommendation: Honey Thick Liquid Intake Strategies: Small Sips No Straws Liquids by Teaspoon Only Solid Food Consistency: Dietary Recommendations: Pureed (NDD1) Additional Modifications to Solid Foods: Patient requires 1:1 assistance feeding. Patient is recommended PUREED (NDD1) solids and HONEY THICK liquids, with pills CRUSHED in PUREE. Recommend close monitoring for any overt s/s of aspiration and strict aspiration precautions: -small sips of liquid by TEASPOON ONLY -small bites of pureed solid -check oral cavity to ensure clearance before presentation of more bites -upright 90 degree position -frequent oral care -minimize distractions during meals TRAY MAY NEED TO BE WITHHELD DEPENDING ON MENTAL STATUS OR IF PATIENT IS LETHARGIC. Withhold PO if patient displays any clinical signs of aspiration. Oral Medication Intake: Crushed with Puree Compensatory Strategies and Precautions to be Taken for Safe Swallow: Sitting Upright (90 deg) No Straw Liquids from Spoon Small Bites and Sips Alternate Liquids/Solids Rate of Ingestion Change Oral Check Supervision While Eating and Drinking for Safe Swallow: Total Assistance Swallowing Recommended Treatments: Compens. Strategy Educat. Recommendation for Speech: Inpatient Speech Therapy GIN FEEDER to follow up tomorrow morning to re-assess swallow. Housekeeping Aid Clinican/Clinical Fellow: Yes: Summer Boland Supervisory Statement: I have reviewed and agree with the student/clinical fellow's documentation: Yes Speech Language Pathologist: Gladys Velásquez M.A., CCC-GIN FEEDER
--- NOTE | 2020-12-18 15:52 | P.PNIM_ITS ---
Subjective Subjective Date of Service: 12/18/20 Interval History: Being followed for electrolyte abnormality, alcohol abuse and withdrawal, altered mental status, this patient remains lethargic somnolent but arousable, offers no acute complaints. Review of Systems Unable to obtain review of system due to lethargy and somnolence. Physical Exam Vital Signs: Vital Signs: Last Vital Signs Temp 98.0 F 12/18/20 15:19 Pulse 105 H 12/18/20 15:19 Resp 20 12/18/20 15:19 BP 148/104 H 12/18/20 15:19 Pulse Ox 94 12/18/20 15:19 Body Mass Index 22.2 General somnolent but arousable,no acute distress. Neck supple, no JVD. CVS regular rate rhythm, Respiratory lungs clear to auscultation, no respiratory distress, no wheeze, no rhonchi. Gastrointestinal abdomen soft, nontender, bowel sounds audible, no guarding , no rigidity. Extremities no edema. Neuro nonfocal patient moving all 4 extremity speech clear. Skin no rash Objective Data Active Medications Albuterol/Ipratropium (Albuterol/Iprat 2.5/0.5mg 3 Ml Ampul.Neb) 3 ml INHALE QID PRN PRN Reason: shortness of breath Famotidine (Famotidine/Pf 20 Mg/2 Ml Vial) 20 mg IVPUSH BID [facility] Last Admin: 12/18/20 09:34 Dose: 20 mg Documented by: RONNIE Thiamine HCl 100 mg/ Sodium (Chloride) 101 mls @ 202 mls/hr IV DAILY [facility] Last Infusion: 12/18/20 10:30 Dose: 0 mls/hr Documented by: RONNIE Potassium Chloride/Sodium Chloride () 40 meq in 1,000 mls @ 100 mls/hr IVCONT .Q10H [facility] Last Admin: 12/18/20 14:07 Dose: 100 mls/hr Documented by: RONNIE Ceftriaxone Sodium 1 gm/ (Sodium Chloride) 50 mls @ 100 mls/hr IV Q24H [facility] Last Infusion: 12/17/20 19:00 Dose: 0 mls/hr Documented by: TUMASY Medication (No Benzodiazepines) 1 each MISCELLANE DAILY [facility] Metoprolol Tartrate (Metoprolol Tartrate 50 Mg Tablet) 50 mg PO BID [facility]; Protocol Last Admin: 12/18/20 09:36 Dose: 50 mg Documented by: RONNIE Pharmacy Consult (Consult Rx Perform Med Rec) 1 each MISCELLANE ONCE PRN PRN Reason: Consult order Pharmacy Consult (Consult Rx Etoh Phenob Dosing) 1 each MISCELLANE ONCE PRN; Protocol PRN Reason: Consult order Phenobarbital (Phenobarbital 15 Mg Tablet) 45 mg PO BID [facility] Stop: 12/19/20 21:01 Last Admin: 12/18/20 09:36 Dose: 45 mg Documented by: RONNIE Phenobarbital (Phenobarbital 30 Mg Tablet) 30 mg PO BID [facility] Stop: 12/21/20 21:01 Phenobarbital (Phenobarbital 15 Mg Tablet) 15 mg PO DAILY [facility] Stop: 12/23/20 09:01 Labs CBC & Chem 7: 12/18/20 11:06 12/18/20 11:06 Labs: Laboratory Results - last 24 hr 12/18/20 12/18/20 11:06 11:06 MCV 90.8 MCH 32.9 MCHC 36.2 H RDW 13.8 Plt Count Not Reportable MPV 9.5 Immature Gran % (Auto) 1.4 H Neut % (Auto) 88.0 H Lymph % (Auto) 3.9 L [place] % (Auto) 6.1 Eos % (Auto) 0.4 Baso % (Auto) 0.2 Lymph # (Auto) 0.5 L [place] # (Auto) 0.8 Eos # (Auto) 0.1 Baso # (Auto) 0.0 Abs Immat Gran (auto) 0.17 H Absolute Neuts (auto) 11.0 H Absolute Nucleated RBC 0.000 Nucleated RBC % (auto) 0.0 Anion Gap 16 Estim Creat Clear Calc 91.6 Estimated GFR > 60 Random Glucose 100 Calcium 7.4 L D Microbiology Microbiology Results: Microbiology 12/16/20 Unknown Urine Culture - Final Urine Catheterized - Neves Catheter Escherichia coli Assessment and Plan (1) Urinary tract infection: Status: Acute (2) Encephalopathy: Status: Acute (3) Acute hyponatremia: Status: Acute (4) Acute hypokalemia: Status: Acute (5) Alcoholism: Status: Acute (6) COPD (chronic obstructive pulmonary disease): Status: Acute (7) HCV (hepatitis C virus): Status: Acute Assessment and Plan: 60-year-old male with a past medical history of alcohol abuse, COPD, depression presented to the hospital with a chief complaint of acute mental status change, unsteady gait Acute toxic metabolic encephalopathy improving likely due to acute infection, alcohol abuse and electrolyte abnormality, patient being more awake and alert today, answering questions with yes and no Obtain speech therapy eval, they recommend pureed and honey thick liquids with one-to-one feeds Hyponatremia Sodium normalized likely beer potomania , will adjust IV fluids, follow BMP Hypokalemia Potassium improved but remains low at 3.2 will aggressively replace and follow BMP Alcohol abuse and withdrawal Continue CIWA protocol, obtain care team consult, continue IV thiamine and add folic acid Acute UTI Urine culture grew E coli, ESBL negative continue IV ceftriaxone day 3/7 Hypertension noted to have elevated blood pressure and pulse, likely due to alcohol withdrawal will add metoprolol, patient takes Norvasc at home. Hepatitis C outpatient follow-up with GI COPD no acute exacerbation noted will discontinue scheduled DuoNeb treatment, changed to as needed Tobacco use disorder will place on nicotine patch 14 mg DVT prophylaxis with compression therapy Quality Stroke Does the patient have a stroke diagnosis?: No VTE Prior VTE?: No VTE Risk Level:: Medical - low VTE Device Contraindication: N/A - Device Ordered VTE Drug Contraindication: Treatment Not Indicated
[2020-12-18] MEDS: Potassium Chloride/H20 10 MEQ/100 ML PIGGYBACK 100 MEQ IV (17:07)
[2020-12-18] MEDS: KCl 40 mEq in 5% Dex/0.45% Sod 40 MEQ/1,000 ML IV.SOLN 42 MEQ IVCONT (17:12)
[2020-12-18] MEDS: cefTRIAXone sodium 1 GM in 0.9 % Sodium Chloride 50 ML IV (19:07)
[2020-12-19] VITALS (9 sets, daily range): BP systolic 138–188; BP diastolic 83–110; PULSE 82–99; RESP 16–22; TEMP 36.2–36.6; O2SAT 95–100
[2020-12-19 07:01] LABS: Anion Gap 13 (12-20); Blood Urea Nitrogen 10 mg/dL (9-16); Calcium 7.7 mg/dL (8.4-10.2); Carbon Dioxide 29 mmol/L (22-29); Chloride 104 mmol/L (96-108); Creatinine Clr Calc Pharmacy 74.9; Estimated Glomerular Filt Rate > 60; Glucose Random 101 mg/dL (60-115); Potassium 3.5 mmol/L (3.3-5.1); Sodium 142 mmol/L (135-145)
[2020-12-19] MEDS: Metoprolol Tartrate 50 MG TABLET PO ×2 (09:41→21:06)
[2020-12-19] MEDS: Famotidine/PF 20 MG/2 ML VIAL IVPUSH (09:41)
[2020-12-19] MEDS: Nicotine 14 MG PATCH.TD24 TRANSDERMA (09:42)
[2020-12-19] MEDS: PHENobarbitaL 15 MG TABLET 45 MG PO ×2 (09:42→21:06)
[2020-12-19] MEDS: Thiamine HCL 100 MG in 0.9 % Sodium Chloride 100 ML 202 MG IV (09:43)
--- NOTE | 2020-12-19 10:26 | MHC.SL.DTX ---
Changes made to current diet?: No Dysphasia Diet Status: Liquid Consistency and Strategies: Liquid Intake Recommendation: Honey Thick Compensatory Strategies for Safe Swallow: Small Sips No Straws Liquids by Teaspoon Only Compensatory Strategies for Safe Swallow(b): Sitting Upright (90 deg) No Straw Liquids from Spoon Small Bites and Sips Alternate Liquids/Solids Oral Check Solid Food Consistency: Dietary Recommendations: Pureed (NDD1) Additional Modifications to Solids: Patient requires 1:1 assistance feeding. Patient is recommended PUREED (NDD1) solids and HONEY THICK liquids, with pills CRUSHED in PUREE. Recommend close monitoring for any overt s/s of aspiration and strict aspiration precautions: -small sips of liquid by TEASPOON ONLY -small bites of pureed solid -check oral cavity to ensure clearance before presentation of more bites -upright 90 degree position -frequent oral care -minimize distractions during meals TRAY MAY NEED TO BE WITHHELD DEPENDING ON MENTAL STATUS OR IF PATIENT IS LETHARGIC. Withhold PO if patient displays any clinical signs of aspiration. Oral Medication Intake: Crushed with Puree Strategies and Precautions to be Taken for Safe Swallow: Compensatory Swallowing Status: Sitting Upright (90 deg) No Straw Liquids from Spoon Small Bites and Sips Alternate Liquids/Solids Oral Check Supervision While Eating and/Drinking: Total Assistance Foods to Avoid: Swallowing Recommended Treatments: Compens. Strategy Educat. Level of Impact on: Daily activities: Severe Interpersonal interactions: Severe Education: Employment: Community: Severe Prognosis for Improvement: Fair Recommendation for Speech: Inpatient Speech Therapy Treatment: Per RN, pt consumed an entire container of pudding and was able to swallow very small pills in puree without difficulty or overt s/s aspiration. She reported that pt was unable/unwilling to fully open his oral cavity, resulting in her applying slight pressure to his tongue when placing the spoon in his oral cavity, after which he was able to elicit a timely pharyngeal swallow trigger. Pt was alert when this TIN FLOPPER arrived to his room. He perseverated on wanting a hat he thought was behind him. Pt unable/unwilling to open his oral cavity beyond approximately 1 inch. He demonstrated holding of PO presented by this TIN FLOPPER, which RN reported was not observed earlier this morning. ? if pt was not hungry and unable to verbalize this. Pt was able to elicit a swallow trigger given verbal cuing. He was noted to speak with PO in oral cavity, prior to the initiation of a swallow. Education was provided re: speaking after swallowing in order to maintain safety. Updated with RN following treatment. Pt not appropriate to trial advanced solids or liquids at this time; continue with recommended diet consistency of NDD1 PUREED solids, HONEY THICK liquids, meds crushed in puree, strict aspiration precautions, and total assistance with feeding. Assessment: Data Systems Analyst Clinican/Clinical Fellow: No Supervisory Statement: I have reviewed and agree with the student/clinical fellow's documentation: N/A Speech Language Pathologist: Yaneli Arita M.A., CCC-TIN FLOPPER
--- NOTE | 2020-12-19 11:44 | PC.NURSE ---
Skin/wound assessment completed today. Patient has a very small stage 2 to right hip- Triad and band-aid applied. Patient has incontinent rash to inner thigh/buttocks- Triad applied open to air. No stage 2 pressure ulcer seen on left hip. Skin looks normal with blanchable redness on bony aspect of left hip. Scattered bruising on legs and arms. No other skin issues noted at this time.
--- NOTE | 2020-12-19 11:57 | P.PNIM_ITS ---
Subjective Subjective Date of Service: 12/19/20 Interval History: Being followed for electrolyte abnormality, alcohol abuse and withdrawal, altered mental status, patient more awake and alert this morning, tolerating diet, but not answering questions, just staring, Say no to pain. Review of Systems Unable to obtain review of system since patient not conversing. Physical Exam Vital Signs: Vital Signs: Last Vital Signs Temp 97.8 F 12/19/20 07:49 Pulse 91 12/19/20 09:41 Resp 16 12/19/20 07:49 BP 188/97 H 12/19/20 09:41 Pulse Ox 97 12/19/20 07:49 Body Mass Index 22.2 General awake aler t,no acute distres s.? Neck supple, n o JVD. CVS? regula r rate rhythm, Res piratory lungs marion ar to auscultation , no respiratory d istress, no wheeze , no rhonchi. Isabelle rointestinal abdom en soft, nontender , bowel sounds aud ible, no guarding , no rigidity. Ext remities no edema. Neuro nonfocal , moving all 4 extre mity not communica ting. Skin no rash Objective Data Active Medications Albuterol/Ipratropium (Albuterol/Iprat 2.5/0.5mg 3 Ml Ampul.Neb) 3 ml INHALE QID PRN PRN Reason: shortness of breath Famotidine (Famotidine/Pf 20 Mg/2 Ml Vial) 20 mg IVPUSH BID [facility] Last Admin: 12/19/20 09:41 Dose: 20 mg Documented by: SANJUANA Thiamine HCl 100 mg/ Sodium (Chloride) 101 mls @ 202 mls/hr IV DAILY [facility] Last Infusion: 12/19/20 10:28 Dose: 0 mls/hr Documented by: SANJUANA Ceftriaxone Sodium 1 gm/ (Sodium Chloride) 50 mls @ 100 mls/hr IV Q24H [facility] Last Infusion: 12/18/20 21:04 Dose: 0 mls/hr Documented by: ZEINAB Potassium Chloride/Dextrose/Sod Cl () 40 meq in 1,000 mls @ 42 mls/hr IVCONT .[id number] [facility] Last Admin: 12/18/20 17:12 Dose: 42 mls/hr Documented by: PODZIEK Medication (No Benzodiazepines) 1 each MISCELLANE DAILY [facility] Metoprolol Tartrate (Metoprolol Tartrate 50 Mg Tablet) 50 mg PO BID [facility]; Protocol Last Admin: 12/19/20 09:41 Dose: 50 mg Documented by: SANJUANA Nicotine (Nicotine 14 Mg Patch.Td24) 14 mg TRANSDERMA DAILY [facility] Last Admin: 12/19/20 09:42 Dose: 14 mg Documented by: SANJUANA Pharmacy Consult (Consult Rx Perform Med Rec) 1 each MISCELLANE ONCE PRN PRN Reason: Consult order Pharmacy Consult (Consult Rx Etoh Phenob Dosing) 1 each MISCELLANE ONCE PRN; Protocol PRN Reason: Consult order Phenobarbital (Phenobarbital 15 Mg Tablet) 45 mg PO BID [facility] Stop: 12/19/20 21:01 Last Admin: 12/19/20 09:42 Dose: 45 mg Documented by: SANJUANA Phenobarbital (Phenobarbital 30 Mg Tablet) 30 mg PO BID [facility] Stop: 12/21/20 21:01 Phenobarbital (Phenobarbital 15 Mg Tablet) 15 mg PO DAILY [facility] Stop: 12/23/20 09:01 Labs CBC & Chem 7: 12/18/20 11:06 12/19/20 05:33 Labs: Laboratory Results - last 24 hr 12/18/20 12/18/20 12/19/20 11:06 11:06 05:33 MCV 90.8 MCH 32.9 MCHC 36.2 H RDW 13.8 Plt Count Not Reportable MPV 9.5 Immature Gran % (Auto) 1.4 H Neut % (Auto) 88.0 H Lymph % (Auto) 3.9 L [place] % (Auto) 6.1 Eos % (Auto) 0.4 Baso % (Auto) 0.2 Lymph # (Auto) 0.5 L [place] # (Auto) 0.8 Eos # (Auto) 0.1 Baso # (Auto) 0.0 Abs Immat Gran (auto) 0.17 H Absolute Neuts (auto) 11.0 H Absolute Nucleated RBC 0.000 Nucleated RBC % (auto) 0.0 Anion Gap 16 13 Estim Creat Clear Calc 91.6 74.9 Estimated GFR > 60 > 60 Random Glucose 100 101 Calcium 7.4 L D 7.7 L Microbiology Microbiology Results: Microbiology 12/16/20 Unknown Urine Culture - Final Urine Catheterized - Neves Catheter Escherichia coli Assessment and Plan (1) Urinary tract infection: Status: Acute (2) Encephalopathy: Status: Acute (3) Acute hyponatremia: Status: Acute (4) Acute hypokalemia: Status: Acute (5) Alcoholism: Status: Acute (6) Seizure disorder: Status: Acute (7) COPD (chronic obstructive pulmonary disease): Status: Acute (8) HCV (hepatitis C virus): Status: Acute Assessment and Plan: 60-year-old male with a past medical history of alcohol abuse, COPD, depression presented to the hospital with a chief complaint of acute mental status change, unsteady gait Acute toxic metabolic encephalopathy Patient more awake alert this morning but not communicating, call patient's friend Maria C wright [phone] according to her patient has been like this for several months he uses a walker to ambulate but he has been declining, not c ommunicating, getting weak, poor by mouth intake , drinks 5-6 beer and fire balls daily for a long time, has been refusing to get medical help All electrolyte abnormalities have been resolved, on IV antibiotic for acute UTI it seems patient is at his baseline Will obtain PT eval/speech therapy following patient recommend pureed and honey thick liquid Continue 1-1 feeds/continue IV fluids today dc iv pepcid Hyponatremia Sodium normalized likely beer potomania , will adjust IV fluids, follow BMP Hypokalemia Potassium improved follow BMP Alcohol abuse and withdrawal Continue CIWA protocol, obtain care team consult, changed to by mouth thiamine and continue folic acid Acute UTI Urine culture grew E coli, ESBL negative continue IV ceftriaxone day 4/7 Hypertension noted to have elevated blood pressure and pulse, likely due to alcohol withdrawal Placed on metoprolol 50 b.i.d., resume home dose of Norvasc 5 mg daily follow BP Hepatitis C outpatient follow-up with GI COPD no acute exacerbation noted cont prn DuoNeb treatment Tobacco use disorder will place on nicotine patch 14 mg DVT prophylaxis with compression therapy Quality Stroke Does the patient have a stroke diagnosis?: No VTE Prior VTE?: No VTE Risk Level:: Medical - low VTE Device Contraindication: N/A - Device Ordered VTE Drug Contraindication: Treatment Not Indicated
[2020-12-19] MEDS: Dextrose 5 % and Lactated Ring 1,000 ML 50 ML IVCONT (12:53)
--- NOTE | 2020-12-19 13:38 | MHC.CLN ---
F/U DIET ADVANCED TO PUREED WITH HT LIQ-APPROPRIATE RECOMMEND ADDING ENSURE BID TO INCREASE KCALS PT WITH INCREASED NUTRITION RISK R/T PRESSURE INJURIES SUPPLEMENT WILL PROVIDE 700KCALS, 40G PROTEIN MONITOR PO INTAKE CLOSELY
[2020-12-19] MEDS: Magnesium Oxide 400 MG TABLET PO (16:59)
[2020-12-19] MEDS: cefTRIAXone sodium 1 GM in 0.9 % Sodium Chloride 50 ML IV (19:00)
[2020-12-20] VITALS (9 sets, daily range): BP systolic 116–156; BP diastolic 72–91; PULSE 84–99; RESP 15–18; TEMP 36–37.2; O2SAT 95–100
[2020-12-20] MEDS: Haloperidol Lactate 5 MG/ML VIAL IM (01:55)
--- NOTE | 2020-12-20 10:01 | HO.PM.IMPN ---
Subjective Subjective Date of Service: 12/20/20 Interval History: Being followed for electrolyte abnormality, alcohol abuse and withdrawal, altered mental status, patient more awake and alert this morning, but very confused still, not conversing Review of Systems Unable to obtain review of system since patient not conversing. Physical Exam Vital Signs: Vital Signs: Last Vital Signs Temp 97.6 F 12/20/20 07:52 Pulse 94 12/20/20 07:52 Resp 18 12/20/20 07:52 BP 123/88 12/20/20 07:52 Pulse Ox 100 12/20/20 07:52 Body Mass Index 22.2 ect Const: Other: Appearance: Alert. Oriented X3. No acute distress. Disheveled Eyes: Pupils equal, round and reactive to light. ENT: Pharynx normal. Neck: Normal inspection. Neck supple. No lymph nodes noted. No crepitus CVS: Normal heart rate and rhythm. Pulses normal. Normal S1 and S2 Respiratory: No respiratory distress. Breath sounds normal. No Wheezing. No rales Abdomen: Soft and nontender. No rigidity. No distention. Skin: Skin warm and dry. Old healed laceration the lateral aspect of the left eyebrow Extremities: No lower extremity edema. No asterixis Neuro: Oriented X 3. No motor deficit. No sensory deficit. Moving all extermities. No slurred speech. Objective Data Active Medications Albuterol/Ipratropium (Albuterol/Iprat 2.5/0.5mg 3 Ml Ampul.Neb) 3 ml INHALE QID PRN PRN Reason: shortness of breath Thiamine HCl 100 mg/ Sodium (Chloride) 101 mls @ 202 mls/hr IV DAILY [facility] Last Infusion: 12/19/20 10:28 Dose: 0 mls/hr Documented by: SANJUANA Ceftriaxone Sodium 1 gm/ (Sodium Chloride) 50 mls @ 100 mls/hr IV Q24H [facility] Last Infusion: 12/19/20 19:40 Dose: 0 mls/hr Documented by: JONATHAN Magnesium Oxide (Magnesium Oxide 400 Mg Tablet) 400 mg PO BIDPC [facility] Last Admin: 12/19/20 16:59 Dose: 400 mg Documented by: JONATHAN Medication (No Benzodiazepines) 1 each MISCELLANE DAILY [facility] Metoprolol Tartrate (Metoprolol Tartrate 50 Mg Tablet) 50 mg PO BID [facility]; Protocol Last Admin: 12/19/20 21:06 Dose: 50 mg Documented by: SUN Nicotine (Nicotine 14 Mg Patch.Td24) 14 mg TRANSDERMA DAILY [facility] Last Admin: 12/19/20 09:42 Dose: 14 mg Documented by: SANJUANA Omeprazole (Omeprazole 20 Mg Capsule.Dr) 20 mg PO DAILY@0630 [facility] Last Admin: 12/20/20 05:39 Dose: Not Given Documented by: SUN Non-Admin Reason: Cannot crush Pharmacy Consult (Consult Rx Perform Med Rec) 1 each MISCELLANE ONCE PRN PRN Reason: Consult order Pharmacy Consult (Consult Rx Etoh Phenob Dosing) 1 each MISCELLANE ONCE PRN; Protocol PRN Reason: Consult order Phenobarbital (Phenobarbital 30 Mg Tablet) 30 mg PO BID [facility] Stop: 12/21/20 21:01 Phenobarbital (Phenobarbital 15 Mg Tablet) 15 mg PO DAILY [facility] Stop: 12/23/20 09:01 Labs CBC & Chem 7: 12/18/20 11:06 12/19/20 05:33 Assessment and Plan (1) Urinary tract infection: Status: Acute (2) Encephalopathy: Status: Acute (3) Acute hyponatremia: Status: Acute (4) Acute hypokalemia: Status: Acute (5) Alcoholism: Status: Acute (6) Seizure disorder: Status: Acute (7) COPD (chronic obstructive pulmonary disease): Status: Acute (8) HCV (hepatitis C virus): Status: Acute Assessment and Plan: 60-year-old male with a past medical history of alcohol abuse, COPD, depression presented to the hospital with a chief complaint of acute mental status change, unsteady gait Acute toxic metabolic encephalopathy Patient more awake alert this morning but not communicating, according to Maria C wright (friend) [phone], patient has been like this for several months he uses a walker to ambulate but he has been declining, not communicating, getting weak, poor by mouth intake , drinks 5-6 beer and fire balls daily for a long time, has been refusing to get medical help All electrolyte abnormalities have been resolved, on IV antibiotic for acute UTI it seems patient is at his baseline PT eval/speech therapy following patient recommend pureed and honey thick liquid Continue 1-1 feeds/continue IV fluids today dc iv pepcid HypOnatremia Sodium normalized likely beer potomania , will adjust IV fluids, follow BMP Hypokalemia Potassium improved follow BMP Alcohol abuse and withdrawal Continue CIWA protocol, obtain care team consult, changed to by mouth thiamine and continue folic acid Acute UTI Urine culture grew E coli, ESBL negative continue IV ceftriaxone day 07/18 Hypertension--BP now within normal, continue Metoprolol 50 bid and Norvasc 5 daily Hepatitis C outpatient follow-up with GI COPD no acute exacerbation noted cont prn DuoNeb treatment Tobacco use disorder will place on nicotine patch 14 mg DVT prophylaxis with compression therapy Quality Stroke Does the patient have a stroke diagnosis?: No VTE Prior VTE?: No VTE Risk Level:: Medical - low VTE Device Contraindication: N/A - Device Ordered VTE Drug Contraindication: Treatment Not Indicated
[2020-12-20] MEDS: Magnesium Oxide 400 MG TABLET PO (10:24)
[2020-12-20] MEDS: PHENobarbitaL 30 MG TABLET PO ×2 (10:24→20:56)
[2020-12-20] MEDS: Nicotine 14 MG PATCH.TD24 TRANSDERMA (10:24)
[2020-12-20] MEDS: Metoprolol Tartrate 50 MG TABLET PO ×2 (10:24→20:56)
[2020-12-20] MEDS: Thiamine HCL 100 MG in 0.9 % Sodium Chloride 100 ML 202 MG IV (11:51)
[2020-12-20] MEDS: cefTRIAXone sodium 1 GM in 0.9 % Sodium Chloride 50 ML IV (18:05)
[2020-12-21] VITALS (7 sets, daily range): BP systolic 102–133; BP diastolic 64–77; PULSE 71–86; RESP 16–19; TEMP 36.1–37.1; O2SAT 96–100
[2020-12-21] MEDS: Haloperidol Lactate 5 MG/ML VIAL IVPUSH (00:08)
[2020-12-21] MEDS: Acetaminophen 325 MG TABLET 650 MG PO ×2 (04:14→20:34)
[2020-12-21 06:12] LABS: Anion Gap 11 (12-20); Blood Urea Nitrogen 16 mg/dL (9-16); Calcium 7.5 mg/dL (8.4-10.2); Carbon Dioxide 29 mmol/L (22-29); Chloride 105 mmol/L (96-108); Creatinine Clr Calc Pharmacy 55.2; Estimated Glomerular Filt Rate 52; Glucose Random 80 mg/dL (60-115); Potassium 3.1 mmol/L (3.3-5.1); Sodium 142 mmol/L (135-145)
[2020-12-21] MEDS: Nicotine 14 MG PATCH.TD24 TRANSDERMA (08:52)
[2020-12-21] MEDS: Potassium Chloride Packet 20 MEQ PACKET PO (08:54)
[2020-12-21] MEDS: PHENobarbitaL 30 MG TABLET PO ×2 (08:54→20:34)
[2020-12-21] MEDS: Magnesium Oxide 400 MG TABLET PO ×2 (08:54→15:39)
[2020-12-21] MEDS: Metoprolol Tartrate 50 MG TABLET PO ×2 (08:55→20:34)
[2020-12-21] MEDS: KCl 20 mEq in 5 % Dex/Lact Rin 20 MEQ/1,000 ML IV.SOLN 80 MEQ IVCONT (09:12)
[2020-12-21] MEDS: Thiamine HCL 100 MG in 0.9 % Sodium Chloride 100 ML 202 MG IV (10:14)
--- NOTE | 2020-12-21 13:06 | P.PNIM_ITS ---
Subjective Subjective Date of Service: 12/21/20 Interval History: Being followed for electrolyte abnormality, alcohol abuse and withdrawal, altered mental status, awake and alert this morning, following commands answering questions appropriately. Review of Systems General no headache, no dizziness, no fever chills. CVS no chest pain, no palpitation. Respiratory no cough no sob. Gastrointestinal no nausea, no vomiting, no abdominal pain Physical Exam Vital Signs: Vital Signs: Last Vital Signs Temp 97.8 F 12/21/20 11:14 Pulse 77 12/21/20 11:14 Resp 18 12/21/20 11:14 BP 102/68 12/21/20 11:14 Pulse Ox 97 12/21/20 11:14 Body Mass Index 22.2 General awake, alert,no acute distress. Neck supple, no JVD. CVS regular rate rhythm, Respiratory lungs clear to auscultation, no respiratory distress, no wheeze, no rhonchi. Gastrointestinal abdomen soft, nontender, bowel sounds audible, no guarding , no rigidity. Extremities no edema. Neuro nonfocal , moving all 4 extremity, speech clear. Skin no rash Objective Data Active Medications Acetaminophen (Acetaminophen 325 Mg Tablet) 650 mg PO Q6H PRN PRN Reason: pain or fever Last Admin: 12/21/20 04:14 Dose: 650 mg Documented by: SUN Albuterol/Ipratropium (Albuterol/Iprat 2.5/0.5mg 3 Ml Ampul.Neb) 3 ml INHALE QID PRN PRN Reason: shortness of breath Ceftriaxone Sodium 1 gm/ (Sodium Chloride) 50 mls @ 100 mls/hr IV Q24H [facility] Last Infusion: 12/20/20 18:42 Dose: 0 mls/hr Documented by: URIEL Potassium Cl/Dextrose/Lact Ringer's () 20 meq in 1,000 mls @ 80 mls/hr IVCONT .[id number] [facility] Last Admin: 12/21/20 09:12 Dose: 80 mls/hr Documented by: URIEL Thiamine HCl 100 mg/ Sodium (Chloride) 101 mls @ 202 mls/hr IV DAILY [facility] Last Infusion: 12/21/20 10:53 Dose: 0 mls/hr Documented by: URIEL Magnesium Oxide (Magnesium Oxide 400 Mg Tablet) 400 mg PO BIDPC [facility] Last Admin: 12/21/20 08:54 Dose: 400 mg Documented by: URIEL Medication (No Benzodiazepines) 1 each MISCELLANE DAILY [facility] Metoprolol Tartrate (Metoprolol Tartrate 50 Mg Tablet) 50 mg PO BID [facility]; Protocol Last Admin: 12/21/20 08:55 Dose: 50 mg Documented by: URIEL Nicotine (Nicotine 14 Mg Patch.Td24) 14 mg TRANSDERMA DAILY [facility] Last Admin: 12/21/20 08:52 Dose: 14 mg Documented by: URIEL Omeprazole (Omeprazole 20 Mg Capsule.Dr) 20 mg PO DAILY@0630 [facility] Last Admin: 12/21/20 05:43 Dose: Not Given Documented by: REREJ Non-Admin Reason: Cannot crush Pharmacy Consult (Consult Rx Perform Med Rec) 1 each MISCELLANE ONCE PRN PRN Reason: Consult order Pharmacy Consult (Consult Rx Etoh Phenob Dosing) 1 each MISCELLANE ONCE PRN; Protocol PRN Reason: Consult order Phenobarbital (Phenobarbital 30 Mg Tablet) 30 mg PO BID [facility] Stop: 12/21/20 21:01 Last Admin: 12/21/20 08:54 Dose: 30 mg Documented by: URIEL Phenobarbital (Phenobarbital 15 Mg Tablet) 15 mg PO DAILY [facility] Stop: 12/23/20 09:01 Potassium Phos/Sodium Phos (Sodium,Potassium Phosphates Powd.Pack) 1 packet PO BID [facility] Labs CBC & Chem 7: 12/18/20 11:06 12/21/20 04:28 Labs: Laboratory Results - last 24 hr 12/21/20 04:28 Anion Gap 11 L Estim Creat Clear Calc 55.2 Estimated GFR 52 Random Glucose 80 Calcium 7.5 L Assessment and Plan (1) Urinary tract infection: Status: Acute (2) Encephalopathy: Status: Acute (3) Acute hyponatremia: Status: Acute (4) Acute hypokalemia: Status: Acute (5) Alcoholism: Status: Acute Assessment and Plan: 60-year-old male with a past medical history of alcohol abuse, COPD, depression presented to the hospital with a chief complaint of acute mental status change, unsteady gait Acute toxic metabolic encephalopathy Resolved was likely due to electrolyte abnormality in UTI awake alert this morning answering questions appropriately, seems to be at baseline according to? Maria C wright (friend) [phone],? patient has been like this for several months he uses a walker to ambulate but he has been declining, not communicating, getting weak, poor by mouth intake , drinks 5-6 beer and fire balls daily for a long time All electrolyte abnormalities have been resolved, on IV antibiotic for acute UTI, will transition to by mouth Ceftin for total 7 days Seen by PT since patient was not able to follow crit cues they will reassess patient ,speech therapy following patient recommend pureed and honey thick liquid Continue 1-1 feeds/continue IV fluids today Mild Justin will treat with IV fluids and follow renal function likely pre renal Hyponatremia Sodium normalized likely beer potomania follow BMP Hypokalemia Potassium dropped to 3.1 today, will replace potassium and phosphorous, follow BMP Hypophosphatemia Will replace and follow phosphorus level likely due to poor nutrition Alcohol abuse and withdrawal Continue CIWA protocol, obtain care team consult, changed to by mouth thiamine and continue folic acid Acute UTI Urine culture grew E coli, ESBL negative on IV ceftriaxone will transition to my mouth Hypertension--BP now within normal, continue Metoprolol 50 bid and Norvasc 5 daily Hepatitis C outpatient follow-up with GI COPD no acute exacerbation noted cont prn DuoNeb treatment Tobacco use disorder continue nicotine patch 14 mg DVT prophylaxis with compression therapy Quality Stroke Does the patient have a stroke diagnosis?: No VTE Prior VTE?: No VTE Risk Level:: Medical - low VTE Device Contraindication: N/A - Device Ordered VTE Drug Contraindication: Treatment Not Indicated
[2020-12-21] MEDS: Sodium,Potassium Phosphates POWD.PACK 1 PACKET PO ×2 (15:39→20:35)
--- NOTE | 2020-12-21 18:08 | PC.NURSE ---
This evening, 1:1 sitter was discontinued for this patient. Camera was on and facing patient, bed alarm was on. Patient ripped out his peripheral R wrist IV. I was made aware of this by a [employer] worker who had entered the room. IV catheter was pulled out when I entered the patient's room. was made aware of this incident and decision was made to d/c IV fluids at this time. MD is aware that patient no longer has a working IV access.
[2020-12-22] VITALS (8 sets, daily range): BP systolic 101–133; BP diastolic 58–81; PULSE 73–119; RESP 14–20; TEMP 36.2–38.3; O2SAT 95–98
--- NOTE | 2020-12-22 04:43 | PC.NURSE ---
Pt able to take medication in puree with no issue. Pt followed commands to open his mouth wider. Pt able to hold and drink thickened liquids without assistance.
[2020-12-22 06:44] LABS: Hematocrit 25.3 % (42-52); Hemoglobin 8.7 g/dl (14.0-18.0); Mean Corpuscular HGB Conc 34.4 g/dl (31.0-36.0); Mean Corpuscular Hemoglobin 33.1 pg (27.0-33.0); Mean Corpuscular Volume 96.2 fL (80-98); Mean Platelet Volume 9.8 fL (9.4-12.4); Red Blood Count 2.63 X10*6/uL (4.60-5.80); Red Cell Distribution Width 14.9 % (11.0-16.0); White Blood Count 10.5 X10*3/uL (4.8-10.8)
[2020-12-22 06:49] LABS: Platelet Count 84 X10*3/uL (160-400)
[2020-12-22 07:03] LABS: Anion Gap 9 (12-20); Blood Urea Nitrogen 18 mg/dL (9-16); Calcium 7.1 mg/dL (8.4-10.2); Carbon Dioxide 29 mmol/L (22-29); Chloride 104 mmol/L (96-108); Creatinine Clr Calc Pharmacy 58.1; Estimated Glomerular Filt Rate 55; Glucose Random 88 mg/dL (60-115); Potassium 3.7 mmol/L (3.3-5.1); Sodium 138 mmol/L (135-145)
[2020-12-22 08:50] LABS: Iron 33 mcg/dL (45-160); Percent Iron Saturation 24 % (15-50); Phosphorus 1.3 mg/dL (2.7-4.5); Total Iron Binding Capacity 139 mcg/dL (228-428); Unsaturated Iron Binding 106 ug/dL
[2020-12-22] MEDS: Thiamine HCL 100 MG TABLET PO (08:59)
[2020-12-22] MEDS: Magnesium Oxide 400 MG TABLET PO ×2 (08:59→15:55)
[2020-12-22] MEDS: Nicotine 14 MG PATCH.TD24 TRANSDERMA (08:59)
[2020-12-22] MEDS: Metoprolol Tartrate 50 MG TABLET PO (08:59)
[2020-12-22] MEDS: PHENobarbitaL 15 MG TABLET PO (08:59)
[2020-12-22] MEDS: Sodium,Potassium Phosphates POWD.PACK 1 PACKET PO ×2 (08:59→20:50)
[2020-12-22 09:05] LABS: Ferritin 651 ng/mL (20-250)
[2020-12-22 09:56] LABS: Vitamin B12 468 pg/mL (200-900)
--- NOTE | 2020-12-22 11:55 | HO.PM.IMPN ---
Subjective Subjective Date of Service: 12/22/20 Interval History: Patient being followed for electrolyte abnormality, alcohol abuse and withdrawal, patient awake alert offers no acute complaints, wants to rest and sleep, no overnight issues. Review of Systems General no headache, no dizziness, no fever chills.? CVS no chest pain, no palpitation.? Respiratory no cough, no sob.? Gastrointestinal no nausea, no vomiting, no abdominal pain Physical Exam Vital Signs: Vital Signs: Last Vital Signs Temp 98.4 F 12/22/20 11:07 Pulse 75 12/22/20 11:07 Resp 20 12/22/20 07:18 BP 101/66 12/22/20 11:07 Pulse Ox 98 12/22/20 11:07 Body Mass Index 22.2 General awake, alert,no acute distress.? Neck? supple, no JVD. CVS? regular rate rhythm, Respiratory lungs clear to auscultation, no respiratory distress, no wheeze, no rhonchi. Gastrointestinal abdomen soft, nontender, bowel sounds audible, no guarding , no rigidity. Extremities no edema. Neuro nonfocal , moving all 4 extremity, speech clear. Skin no rash Objective Data Active Medications Acetaminophen (Acetaminophen 325 Mg Tablet) 650 mg PO Q6H PRN PRN Reason: pain or fever Last Admin: 12/21/20 20:34 Dose: 650 mg Documented by: SUN Albuterol/Ipratropium (Albuterol/Iprat 2.5/0.5mg 3 Ml Ampul.Neb) 3 ml INHALE QID PRN PRN Reason: shortness of breath Cefuroxime Axetil (Cefuroxime Axetil 250 Mg Tablet) 250 mg PO Q12H [facility] Last Admin: 12/22/20 03:11 Dose: 250 mg Documented by: SUN [facility] ([facility] Mg [facility] Last Admin: 12/22/20 08:59 Dose: 400 mg Documented by: GEORGE Medication (No Benzodiazepines) 1 each MISCELLANE DAILY [facility] Metoprolol Tartrate (Metoprolol Tartrate 50 Mg Tablet) 50 mg PO BID [facility]; Protocol Last Admin: 12/22/20 08:59 Dose: 50 mg Documented by: GEORGE Nicotine (Nicotine 14 Mg Patch.Td24) 14 mg TRANSDERMA DAILY [facility] Last Admin: 12/22/20 08:59 Dose: 14 mg Documented by: GEORGE Omeprazole (Omeprazole 20 Mg Capsule.Dr) 20 mg PO DAILY@0630 [facility] Last Admin: 12/22/20 06:39 Dose: Not Given Documented by: SUN Non-Admin Reason: Cannot crush Pharmacy Consult (Consult Rx Perform Med Rec) 1 each MISCELLANE ONCE PRN PRN Reason: Consult order Pharmacy Consult (Consult Rx Etoh Phenob Dosing) 1 each MISCELLANE ONCE PRN; Protocol PRN Reason: Consult order Phenobarbital (Phenobarbital 15 Mg Tablet) 15 mg PO DAILY [facility] Stop: 12/23/20 09:01 Last Admin: 12/22/20 08:59 Dose: 15 mg Documented by: GEORGE Potassium Phos/Sodium Phos (Sodium,Potassium Phosphates Powd.Pack) 1 packet PO BID [facility] Last Admin: 12/22/20 08:59 Dose: 1 packet Documented by: GEORGE Thiamine HCl (Thiamine Hcl 100 Mg Tablet) 100 mg PO DAILY [facility] Last Admin: 12/22/20 08:59 Dose: 100 mg Documented by: GEORGE Labs CBC & Chem 7: 12/22/20 05:40 12/22/20 05:40 Labs: Laboratory Results - last 24 hr 12/22/20 12/22/20 12/22/20 05:40 05:40 05:40 MCV 96.2 D MCH 33.1 H MCHC 34.4 RDW 14.9 Plt Count 84 L D MPV 9.8 Absolute Nucleated RBC 0.000 Nucleated RBC % (auto) 0.0 Anion Gap 9 L Estim Creat Clear Calc 58.1 Estimated GFR 55 Random Glucose 88 Calcium 7.1 L Phosphorus 1.3 L Iron 33 L TIBC 139 L % Saturation 24 Unsat Iron Binding 106 Ferritin 651 H Vitamin B12 468 Folate 8.0 Assessment and Plan (1) Urinary tract infection: Status: Acute (2) Encephalopathy: Status: Acute (3) Acute hyponatremia: Status: Acute (4) Acute hypokalemia: Status: Acute (5) Alcoholism: Status: Acute Assessment and Plan: 60-year-old male with a past medical history of alcohol abuse, COPD, depression presented to the hospital with a chief complaint of acute mental status change, unsteady gait Acute toxic metabolic encephalopathy Resolved was likely due to electrolyte abnormality in UTI awake alert this morning answering questions appropriately, seems to be at baseline according to? Maria C kyle (friend) [phone],? patient has been like this for several months he uses a walker to ambulate but he has been declining, not communicating, getting weak, poor by mouth intake , drinks 5-6 beer and fire balls daily for a long time All electrolyte abnormalities have been resolved, on po Ceftin for total 6/7 days Seen by PT since patient was not able to follow cues they will reassess patient ,speech therapy following patient recommend pureed and honey thick liquid Continue 1-1 feeds Patient has poor insight likely due to chronic alcohol use Acute on chronic anemia B12 folate within normal range, iron studies not consistent with iron deficiency Will check stool guaiacs likely anemia due to poor nutrition Mild Justin resolved with IV fluid Hyponatremia Sodium normalized likely beer potomania repeat sodium remains stable Hypokalemia Potassium normalized to 3.7 , follow BMP Hypophosphatemia Phosphorous 1.3, Will replace and follow phosphorus level likely due to poor nutrition Alcohol abuse and withdrawal Continue CIWA protocol, care team consult, continue thiamine and folic acid Acute UTI Urine culture grew E coli, ESBL negative on by mouth Ceftin Hypertension--BP now low normal on Metoprolol 50 bid , likely elevated blood pressure on admission due to alcohol withdrawal felt reduce dose of metoprolol to 25 b.i.d. follow blood pressure Hepatitis C outpatient follow-up with GI COPD no acute exacerbation noted cont prn DuoNeb treatment Tobacco use disorder continue nicotine patch 14 mg DVT prophylaxis with compression therapy Quality Stroke Does the patient have a stroke diagnosis?: No VTE Prior VTE?: No VTE Risk Level:: Medical - low VTE Device Contraindication: N/A - Device Ordered VTE Drug Contraindication: Treatment Not Indicated
--- NOTE | 2020-12-22 12:23 | MHC.SL.SWA ---
Speech Pathologist Impression: Risk of Aspiration Oralpharyngeal Dysphagia Risk of Aspiration Due to: Poor PO Intake Dysphasia Diet Status: Upgrade Liquid Consistency and Strategies for Safe Swallow: Liquid Intake Recommendation: Honey Thick Liquid Intake Strategies: Small Sips No Straws Solid Food Consistency: Dietary Recommendations: Grnd/Mech Altered (NDD2) Additional Modifications to Solid Foods: Moisten with sauce/gravy; avoid tough, sticky, or crumbly foods. Oral Medication Intake: Crushed with Puree Compensatory Strategies and Precautions to be Taken for Safe Swallow: Sitting Upright (90 deg) No Straw Small Bites and Sips Alternate Liquids/Solids Rate of Ingestion Change Oral Check Avoid Specific Foods Supervision While Eating and Drinking for Safe Swallow: Total Assistance Foods to Avoid: tough, sticky, or crumbly foods Swallowing Recommended Treatments: Compens. Strategy Educat. Recommendation for Speech: Inpatient Speech Therapy Recommend continue HONEY THICK liquids and UPGRADE to GROUND/MECH ALTERED (NDD2) solids, with pills CRUSHED in PUREE. Patient requires assistance with tray set up, but is able to feed himself. At the very least, however, recommend total supervision to ensure aspiration precautions and compensatory strategies for oral clearance: -moisten food with sauce/gravy -reminders to take small bites -alternate bite of food with sip of liquid -check oral cavity for residue/pocketing and cue for strategies as needed. Recommend continue strict aspiration precautions and close monitoring for any overt s/s of aspiration. SHANK BREAKER will continue to follow. TRAY MAY NEED TO BE WITHHELD DEPENDING ON MENTAL STATUS OR IF PATIENT IS LETHARGIC. Withhold PO if patient displays any clinical signs of aspiration. Janitorial Account Manager Clinican/Clinical Fellow: No Supervisory Statement: I have reviewed and agree with the student/clinical fellow's documentation: N/A Speech Language Pathologist: Gladys Velásquez M.A., [facility]-SHANK BREAKER
--- NOTE | 2020-12-22 13:43 | MHC.CLN ---
F/U 50% AVG PO INTAKE DIET ADVANCED TO GRD WITH HT LIQ PER TIP CEMENTER-APPROPRIATE SEE TIP CEMENTER REC 12/22/20 PT RECEIVING ENSURE BID TO INCREASE KCALS PT WITH INCREASED NUTRITION RISK R/T PRESSURE INJURIES SUPPLEMENT WILL PROVIDE 700KCALS, 40G PROTEIN CONTINUE TO MONITOR PO INTAKE CLOSELY
[2020-12-22] MEDS: Metoprolol Tartrate 25 MG TABLET PO (20:49)
[2020-12-23] VITALS (7 sets, daily range): BP systolic 105–145; BP diastolic 71–84; PULSE 73–90; RESP 15–20; TEMP 36.2–37.2; O2SAT 95–100
[2020-12-23 02:10] LABS: CDiff Gene PCR POSITIVE (Negative)
--- NOTE | 2020-12-23 02:20 | PM.EVENT ---
Event Note Date of Service: 12/23/20 Event Note: C diff infection: s/w PO vancomycin. AM team to follow up with ID consult
--- NOTE | 2020-12-23 02:22 | PC.NURSE ---
Pt had two large loose BMs. Specimen sent and came back positive for C.Diff. Dr. Woody notified, charano Q6 ordered.
[2020-12-23] MEDS: vancomycin HCL 125 MG CAPSULE PO (02:33)
[2020-12-23 02:42] LABS: CDiff Toxin Positive (Negative)
[2020-12-23 02:43] LABS: CDIFF Internal ctrl Dots and bkg OK (V)
[2020-12-23] MEDS: Magnesium Oxide 400 MG TABLET PO ×2 (09:38→16:47)
[2020-12-23] MEDS: vancomycin HCL Oral Solution 125 MG/5 ML SOLN.RECON PO ×3 (09:38→22:28)
[2020-12-23] MEDS: Nicotine 14 MG PATCH.TD24 TRANSDERMA (09:39)
[2020-12-23] MEDS: PHENobarbitaL 15 MG TABLET PO (09:39)
[2020-12-23] MEDS: Thiamine HCL 100 MG TABLET PO (09:39)
[2020-12-23] MEDS: Metoprolol Tartrate 25 MG TABLET PO ×2 (09:39→22:27)
[2020-12-23] MEDS: Sodium,Potassium Phosphates POWD.PACK 1 PACKET PO ×2 (09:39→22:28)
--- NOTE | 2020-12-23 11:54 | MHC.SL.SWA ---
Speech Pathologist Impression: Risk of Aspiration Oralpharyngeal Dysphagia Risk of Aspiration Due to: Poor PO Intake Liquid Consistency and Strategies for Safe Swallow: Liquid Intake Recommendation: Honey Thick Liquid Intake Strategies: Small Sips No Straws Solid Food Consistency: Dietary Recommendations: Grnd/Mech Altered (NDD2) Additional Modifications to Solid Foods: Moisten with sauce/gravy; avoid tough, sticky, or crumbly foods. Oral Medication Intake: Crushed with Puree Compensatory Strategies and Precautions to be Taken for Safe Swallow: Sitting Upright (90 deg) No Straw Small Bites and Sips Alternate Liquids/Solids Rate of Ingestion Change Oral Check Avoid Specific Foods Supervision While Eating and Drinking for Safe Swallow: Total Assistance Foods to Avoid: tough, sticky, or crumbly foods Swallowing Recommended Treatments: Compens. Strategy Educat. Recommendation for Speech: Inpatient Speech Therapy Comment: Recommend continue HONEY THICK liquids and GROUND/MECH ALTERED (NDD2) solids, with pills CRUSHED in PUREE. Patient requires assistance with tray set up, but is able to feed himself. At the very least, however, recommend total supervision to ensure aspiration precautions and compensatory strategies for oral clearance: -moisten food with sauce/gravy -reminders to take small bites -alternate bite of food with sip of liquid -check oral cavity for residue/pocketing and cue for strategies as needed. Recommend continue strict aspiration precautions and close monitoring for any overt s/s of aspiration. PRINT PRODUCTION MANAGER will continue to follow. TRAY MAY NEED TO BE WITHHELD DEPENDING ON MENTAL STATUS OR IF PATIENT IS LETHARGIC. Withhold PO if patient displays any clinical signs of aspiration. Landscape Artist Clinican/Clinical Fellow: Yes: Summer Boland Supervisory Statement: I have reviewed and agree with the student/clinical fellow's documentation: Yes Speech Language Pathologist: Gladys Velásquez M.A., CCC-PRINT PRODUCTION MANAGER
--- NOTE | 2020-12-23 14:09 | HO.PM.IMPN ---
Subjective Subjective Date of Service: 12/23/20 Interval History: Patient being followed for electrolyte abnormality, alcohol abuse and withdrawal, patient awake alert offers no acute complaints, events from last night noted patient had 2 large bowel movement C diff toxin came back positive, no further episodes of diarrhea this morning no nausea, no vomiting, denies fever chills Review of Systems General no headache, no dizziness, no fever chills.? CVS no chest pain, no palpitation.? Respiratory no cough, no sob.? Gastrointestinal no nausea, no vomiting, no abdominal pain Physical Exam Vital Signs: Vital Signs: Last Vital Signs Temp 98.7 F 12/23/20 11:06 Pulse 73 12/23/20 11:06 Resp 20 12/23/20 11:06 BP 116/71 12/23/20 11:06 Pulse Ox 100 12/23/20 11:06 Body Mass Index 22.2 General awake, alert,no acute distress.? Neck? supple, no JVD. CVS? regular rate rhythm, Respiratory lungs clear to auscultation, no respiratory distress, no wheeze, no rhonchi. Gastrointestinal abdomen soft, nontender, bowel sounds audible, no guarding , no rigidity. Extremities no edema. Neuro nonfocal , moving all 4 extremity, speech clear. Skin no rash Objective Data Active Medications Acetaminophen (Acetaminophen 325 Mg Tablet) 650 mg PO Q6H PRN PRN Reason: pain or fever Last Admin: 12/21/20 20:34 Dose: 650 mg Documented by: SUN Albuterol/Ipratropium (Albuterol/Iprat 2.5/0.5mg 3 Ml Ampul.Neb) 3 ml INHALE QID PRN PRN Reason: shortness of breath Cefuroxime Axetil (Cefuroxime Axetil 250 Mg Tablet) 250 mg PO Q12H [facility] Last Admin: 12/23/20 00:14 Dose: 250 mg Documented by: MARY [facility]ide ([facility] 400 Mg [facility]) [facility] Last Admin: 12/23/20 09:38 Dose: 400 mg Documented by: GEORGE Medication (No Benzodiazepines) 1 each MISCELLANE DAILY [facility] Metoprolol Tartrate (Metoprolol Tartrate 25 Mg Tablet) 25 mg PO BID [facility]; Protocol Last Admin: 12/23/20 09:39 Dose: 25 mg Documented by: GEORGE Nicotine (Nicotine 14 Mg Patch.Td24) 14 mg TRANSDERMA DAILY [facility] Last Admin: 12/23/20 09:39 Dose: 14 mg Documented by: GEORGE Omeprazole (Omeprazole 20 Mg Capsule.Dr) 20 mg PO DAILY@0630 [facility] Last Admin: 12/23/20 06:05 Dose: Not Given Documented by: MARY Non-Admin Reason: Patient Refused Pharmacy Consult (Consult Rx Perform Med Rec) 1 each MISCELLANE ONCE PRN PRN Reason: Consult order Pharmacy Consult (Consult Rx Etoh Phenob Dosing) 1 each MISCELLANE ONCE PRN; Protocol PRN Reason: Consult order Potassium Phos/Sodium Phos (Sodium,Potassium Phosphates Powd.Pack) 1 packet PO BID [facility] Last Admin: 12/23/20 09:39 Dose: 1 packet Documented by: GEORGE Thiamine HCl (Thiamine Hcl 100 Mg Tablet) 100 mg PO DAILY [facility] Last Admin: 12/23/20 09:39 Dose: 100 mg Documented by: GEORGE Vancomycin HCl (Vancomycin Hcl Oral Solution 125 Mg/5 Ml Soln.Recon) 125 mg PO Q6H [facility] Last Admin: 12/23/20 09:38 Dose: 125 mg Documented by: GEORGE Labs CBC & Chem 7: 12/22/20 05:40 12/22/20 05:40 Labs: Laboratory Results - last 24 hr 12/23/20 00:20 C. difficile Tox B Gene POSITIVE A* C. difficile Toxin A&B Positive A* C. difficile Interpret SEE NOTE Assessment and Plan (1) Urinary tract infection: Status: Acute (2) Encephalopathy: Status: Acute (3) Acute hyponatremia: Status: Acute (4) Acute hypokalemia: Status: Acute (5) Alcoholism: Status: Acute (6) C. difficile diarrhea: Status: Acute Assessment and Plan: 60-year-old male with a past medical history of alcohol abuse, COPD, depression presented to the hospital with a chief complaint of acute mental status change, unsteady gait Acute toxic metabolic encephalopathy Resolved was likely due to electrolyte abnormality in UTI awake alert this morning answering questions appropriately, seems to be at baseline according to? Maria C wright (friend) [phone],? patient has been like this for several months he uses a walker to ambulate but he has been declining, not communicating, getting weak, poor by mouth intake , drinks 5-6 beer and fire balls daily for a long time All electrolyte abnormalities have been resolved, on po Ceftin day 7 will DC after today's dose Seen by PT since patient unable to follow commands no Skilled PT recommended ,speech therapy following patient they upgraded diet to ground mechanical,and honey thick liquid Continue 1-1 feeds Patient has poor insight likely due to chronic alcohol use Failure to thrive due to chronic alcohol use and poor nutrition Will discuss with case management social worker regarding placement. C diff infection Likely due to antibiotic Will treat with vancomycin by mouth 125 mg q.6 hours. Acute on chronic anemia B12 folate within normal range, iron studies not consistent with iron deficiency likely anemia due to poor nutrition Mild Justin resolved with IV fluid Hyponatremia Sodium normalized likely beer potomania repeat sodium remains stable Hypokalemia Potassium normalized to 3.7 , follow BMP Hypophosphatemia Phosphorous remains low will replace and follow phosphorus level likely due to poor nutrition Alcohol abuse and withdrawal Continue CIWA protocol, care team consult, continue thiamine and? folic acid Acute UTI Urine culture grew E coli, ESBL negative finish course of Ceftin today Hypertension--BP stable on metoprolol 25 mg b.i.d. Hepatitis C outpatient follow-up with GI COPD no acute exacerbation noted cont. prn DuoNeb treatment Tobacco use disorder continue nicotine patch 14 mg DVT prophylaxis with compression therapy Quality Stroke Does the patient have a stroke diagnosis?: No VTE Prior VTE?: No VTE Risk Level:: Medical - low VTE Device Contraindication: N/A - Device Ordered VTE Drug Contraindication: Treatment Not Indicated
[2020-12-23] MEDS: ondansetron HCL 4 MG/2 ML VIAL IVPUSH (21:00)
[2020-12-24] VITALS: BP 134/72; PULSE 85; RESP 16; TEMP 36.3; O2SAT 98
[2020-12-24] MEDS: vancomycin HCL Oral Solution 125 MG/5 ML SOLN.RECON PO ×3 (01:45→14:18)
[2020-12-24 04:00] VITALS: BP 129/77; PULSE 82; RESP 16; TEMP 36.2; O2SAT 98
[2020-12-24] MEDS: Omeprazole 20 MG CAPSULE.DR PO (06:07)
[2020-12-24 07:15] VITALS: BP 139/80; PULSE 76; RESP 20; TEMP 35.5; O2SAT 100
[2020-12-24] MEDS: Metoprolol Tartrate 25 MG TABLET PO (08:38)
[2020-12-24] MEDS: Nicotine 14 MG PATCH.TD24 TRANSDERMA (08:38)
[2020-12-24] MEDS: Thiamine HCL 100 MG TABLET PO (08:38)
[2020-12-24] MEDS: Magnesium Oxide 400 MG TABLET PO (08:38)
[2020-12-24] MEDS: Sodium,Potassium Phosphates POWD.PACK 1 PACKET PO (08:38)
[2020-12-24 09:21] LABS: Hematocrit 24.9 % (42-52); Hemoglobin 8.8 g/dl (14.0-18.0)
[2020-12-24 09:38] LABS: Phosphorus 2.4 mg/dL (2.7-4.5)
--- NOTE | 2020-12-24 10:59 | MHC.SL.DTX ---
Pre-Treatment Diet: GROUND/MECH ALTERED (NDD2) solids HONEY THICK liquids Pills CRUSHED in PUREE Subjective: Changes made to current diet?: Yes: advance liquids to thin Dysphasia Diet Status: Liquid Consistency and Strategies: Liquid Intake Recommendation: Thin Compensatory Strategies for Safe Swallow: Small Sips No Straws Compensatory Strategies for Safe Swallow(b): Sitting Upright (90 deg) No Straw Small Bites and Sips Alternate Liquids/Solids Rate of Ingestion Change Oral Check Avoid Specific Foods Solid Food Consistency: Dietary Recommendations: Grnd/Mech Altered (NDD2) Additional Modifications to Solids: Moisten with sauce/gravy; avoid tough, sticky, or crumbly foods. Oral Medication Intake: Crushed with Puree Strategies and Precautions to be Taken for Safe Swallow: Compensatory Swallowing Status: Sitting Upright (90 deg) No Straw Small Bites and Sips Alternate Liquids/Solids Rate of Ingestion Change Oral Check Avoid Specific Foods Supervision While Eating and/Drinking: Total Assistance Foods to Avoid: tough, sticky, or crumbly foods Swallowing Recommended Treatments: Compens. Strategy Educat. Level of Impact on: Daily activities: Severe Interpersonal interactions: Severe Education: Employment: Community: Severe Prognosis for Improvement: Fair Recommendation for Speech: Inpatient Speech Therapy Recommend continue strict aspiration precautions and close monitoring for any overt s/s of aspiration. LMFT will continue to follow. TRAY MAY NEED TO BE WITHHELD DEPENDING ON MENTAL STATUS OR IF PATIENT IS LETHARGIC. Withhold PO if patient displays any clinical signs of aspiration. Additional Comments: Treatment: Pt was alert upon this LMFT's arrival. He was repositioned upright in bed. Per RN, recommended pt's liquid consistency be upgraded. Pt demonstrated a significant increase in his alertness level. Pt was found with a cup of thin water at his bedside. Pt tolerated trial of nectar thick and thin liquids liquids via tsps and cup sips for which he initiated a timely pharyngeal swallow trigger without overt s/s aspiration. Pt was offered a trial of a chopped solid, though demonstrated significant difficulty with mastication, likely due to his edentulous status. Pt stated he has had dentures since the and did not know where they are. LMFT unable to locate in his room. RN was notified. Updated with RN and MD re: recommendation to advance to thin liquids via cup sips (NO STRAWS) and continue NDD2 GROUND solids. Aspiration precautions and 1:1 supervision with PO intake should also continue. LMFT will continue to follow pt to determine the safest and least restrictive diet consistency. Applied Psychology Teacher Clinican/Clinical Fellow: No Supervisory Statement: I have reviewed and agree with the student/clinical fellow's documentation: N/A Speech Language Pathologist: Yaneli Arita M.A., CCC-LMFT
[2020-12-24 11:14] VITALS: BP 125/79; PULSE 73; RESP 18; TEMP 35.5; O2SAT 97
[2020-12-24 12:05] VITALS: BP 125/79; PULSE 73; O2SAT 97
--- NOTE | 2020-12-24 13:53 | MHC.CLN ---
Addendum entered by Leonor Dick, MARGO 12/24/20 14:02: agree with provider's assessment below Original Note: F/U PO INTAKE DOCUMENTED 100% X 1 MEAL DIET ADVANCED TO GRD WITH THIN LIQUIDS PER [employer]ER [employer] TESTER WATER-APPROPRIATE SEE [employer]ER [employer] TESTER WATER REC 12/24/20 PT RECEIVING ENSURE BID TO INCREASE KCALS PT WITH INCREASED NUTRITION RISK R/T PRESSURE INJURIES SUPPLEMENT WILL PROVIDE 700KCALS, 40G PROTEIN CONTINUE TO MONITOR PO INTAKE CLOSELY
--- NOTE | 2020-12-24 14:57 | PM.DS ---
DS: Providers Provider Date of Service: 12/24/20 Date of admission: 12/16/20 13:21 Primary care physician: [facility] Consults: 12/16/20 13:49 Consult to Infectious Diseases Stat Consulting Provider: Brittany Bowles Reason for consultation: RESTRICTED ANTIBIOTIC DS: Diagnosis Discharge Diagnosis (1) Urinary tract infection: Status: Acute (2) Encephalopathy: Status: Acute (3) Acute hyponatremia: Status: Acute (4) Acute hypokalemia: Status: Acute (5) Alcoholism: Status: Acute (6) C. difficile diarrhea: Status: Acute DS: Summary Hospital Course Hospital Course: History of presenting illness Date of Service: 12/16/20 Attending physician on admission: Eileen Hernandez Chief Complaint:? altered mental status and frequent falling ?60-year-old male cachectic appearance apparently chronic smoker with COPD as well as chronic alcoholic who was last drink by his admission is 3-4 days earlier but was noted by his significant other to be stumbling more with a clumsy gait and somewhat altered mental status with?background history of alcohol withdrawal seizures and apparently takes an atypical antipsychotic as well as an SSRI antidepressant. Hospital course 60-year-old male with a past medical history of alcohol abuse, COPD, depression presented to the hospital with a chief complaint of acute mental status change, unsteady gait and diagnosed to have Acute toxic metabolic encephalopathy likely due to UTI and significant electrolyte abnormality, patient treated with IV antibiotic and has finished total 7 day course of antibiotic, all electrolytes were repleted and sodium and potassium have now normalized, patient mental status is significantly improved he is more awake alert following directions, according to patient's friend Maria C Julian patient has been declining in last several months getting weaker with poor bowel mouth intake and drinking alcohol daily 5-6 as needed fire balls, due to significant weakness and poor safety awareness patient is being discharged to rehab facility he was followed closely by speech therapist his diet is gradually advanced to mechanical and clear liquids that he is tolerating fairly well he is also noted to have low phosphorous level , and has been placed on phosphorous replacement Patient noted to have moderate malnutrition therefore placed on Ensure b.i.d. During course of hospitalization patient noted to have diarrhea stool test positive for C diff therefore placed on by mouth vancomycin need 9 more days of vanco therapy, stools have slowed down Patient also noted to have anemia B12 and folate are within normal range, patient likely has anemia due to poor nutrition. Mild Mai resolved with IV fluids. Patient noted to have significantly elevated blood pressure likely due to alcohol withdrawal now blood pressure is stable continue metoprolol 25 mg b.i.d. Hepatitis C outpatient follow-up with GI is recommended COPD no acute exacerbation noted continue as needed inhalers. Tobacco use disorder recommend cessation and continue nicotine patch 14 mg History of depression patient previously was on psych medication did not receive and in-house will need outpatient psychiatric evaluation noted to have depression or other mood disorder. Time Spent with Patient Time attestation: Total time spent providing and/or coordinating discharge services: Discharge coordination time: Greater than 30 minutes Quality: Stroke Does the patient have a stroke diagnosis?: No Physical Exam Vital Signs: Vital Signs: Last Vital Signs Temp 96 F L 12/24/20 11:14 Pulse 73 12/24/20 12:05 Resp 18 12/24/20 11:14 BP 125/79 12/24/20 12:05 Pulse Ox 97 12/24/20 12:05 Body Mass Index 22.2 General awake, alert,no acute distress, answering questions appropriately Neck? supple, no JVD. CVS? regular rate rhythm, Respiratory lungs clear to auscultation, no respiratory distress, no wheeze, no rhonchi. Gastrointestinal abdomen soft, nontender, bowel sounds audible, no guarding , no rigidity. Extremities no edema. Neuro nonfocal , moving all 4 extremity, speech clear. Skin no rash DS: Data Data Completed and Pending Completed studies during hospitalization [Text1]: Procedures Detoxification Services for Substance Abuse Treatment (09/20/20) Labs on day of discharge: Laboratory Results - last 24 hr 12/24/20 12/24/20 09:10 09:10 Hgb 8.8 L Hct 24.9 L Phosphorus 2.4 L Discharge Plan Discharge Patient Disposition: er SNF Discharge Diagnosis: Acute toxic metabolic encephalopathy C diff infection Acute UTI Acute on chronic anemia Mild MAI Hyponatremia Hypokalemia First with edema Alcohol abuse and withdrawal Moderate malnutrition Referrals: [place],[facility] [Primary Care Provider] - 1 Week Discharge Medications: New nicotine 14 mg/24 hr Patch 24 Hour 14 mg transdermal DAILY Qty: 30 RF: 0 omeprazole 20 mg Capsule,Delayed Release(Dr/Ec) 20 mg PO DAILY@0630 Qty: 30 RF: 0 metoprolol tartrate 25 mg Tablet 25 mg PO BID Qty: 60 RF: 0 potassium, sodium phosphates [Phos-NaK] 280-160-250 mg Powder In Packet 1 packet PO DAILY Qty: 7 RF: 0 Firvanq 25 mg/mL Recon Soln 125 mg PO Q6H Qty: 36 RF: 0 magnesium oxide 400 mg (241.3 mg magnesium) Tablet 400 mg PO BIDPC Qty: 30 RF: 0 Continued thiamine HCl (vitamin B1) [Vitamin B-1] 100 mg tablet 1 tab PO DAILY RF: 0 folic acid 1 mg tablet 1 tab PO DAILY RF: 0 multivitamin Tablet 1 tab PO DAILY RF: 0 albuterol sulfate [ProAir HFA] 90 mcg/actuation HFA aerosol inhaler 2 puff PO Q4H PRN (Reason: Shortness Of Breath) RF: 0 Discontinued oxcarbazepine 150 mg tablet 1 tab PO TID RF: 0 aspirin 81 mg tablet,delayed release (DR/EC) 1 tab PO DAILY RF: 0 fluoxetine 20 mg capsule 2 cap PO QAM RF: 0 meloxicam 7.5 mg tablet 1 tab PO BID RF: 0 Discharge Orders: Discharge Order (Routine); Ordered 12/24/20 Ordered By: Dl Armstrong Diet: advance to usual diet Activity on Discharge: As tolerated Stand Alone Forms: Patient Portal Discharge page Care Plan Goals: Complete abstinence from alcohol, continue all medications as above, continue physical therapy for significant deconditioning Health Concerns: Electrolyte abnormalities due to poor nutrition, continue ground mechanical diet and thin liquids, take Ensure can twice daily for malnutrition Plan of Treatment: Outpatient follow-up with primary care physician in 1-2 weeks Assessment: As above
[2020-12-24 15:19] VITALS: BP 146/84; PULSE 88; RESP 18; TEMP 36.9; O2SAT 100
--- NOTE | 2020-12-24 15:24 | MHC.CM.PN ---
Male 60 DX ams hypo Na he is discharged to [facility] today. He will transport via BLS.
[2020-12-24 15:51] LABS: COVID-19 Test Negative (Negative); IDNOW Serial# 08D9AD1C
== END 2020-12-24 17:36 | disposition skilled nursing facility (03) | DRG 463 ==
LOC: HO.ED 12:01 → HO.ICU 13:49 → HO.IMC 12-17 17:46
PROVIDERS: Hospitalist; Internal Medicine; Registered Nurse Community Health; Admitting Provider Internal Medicine Cardiovascular Disease; Emergency Provider Emergency Medicine; Visit Provider Hospitalist
DX: N39.0 Urinary tract infection, site not specified (principal); G92.8 Other toxic encephalopathy; A04.72 Enterocolitis due to Clostridium difficile, not specified as recurrent; E44.0 Moderate protein-calorie malnutrition; E87.1 Hypo-osmolality and hyponatremia; D51.3 Other dietary vitamin B12 deficiency anemia; E87.6 Hypokalemia; F17.210 Nicotine dependence, cigarettes, uncomplicated; R29.6 Repeated falls; G93.0 Cerebral cysts; Z91.81 History of falling; B19.20 Unspecified viral hepatitis C without hepatic coma; J44.9 Chronic obstructive pulmonary disease, unspecified; Z71.6 Tobacco abuse counseling; B96.20 Unspecified Escherichia coli [E. coli] as the cause of diseases classified elsewhere; F32.A Depression, unspecified; Z20.822 Contact with and (suspected) exposure to COVID-19; Z68.22 Body mass index [BMI] 22.0-22.9, adult; F10.239 Alcohol dependence with withdrawal, unspecified; Z23 Encounter for immunization; Z88.0 Allergy status to penicillin; Z88.5 Allergy status to narcotic agent; Z88.6 Allergy status to analgesic agent; Z79.899 Other long term (current) drug therapy
CPT/HCPCS: 36415; 70450; 71045; 80048; 80053; 80076; 80307; 80339; 81001; 82077; 82140; 82607; 82728; 82746; 83540; 83735; 83930; 83935; 84100; 84300; 84484; 85014; 85018; 85025; 85027; 85610; 87086; 87088; 87186; 87324; 87493; 87635; 90686; 92610; 93005; 94640; 96365; 96366; 97161; 97162; 99285; 99291; J0696; J1956; J2060; J2185; J2405; J2560; J3411

== ENCOUNTER 2021-01-22 11:12 | Inpatient (IN) | payer MEDICAID, SELFPAY ==
--- NOTE | ~2021-01-22 | CT_ITS ---
EXAMINATION: CT HEAD WITHOUT CONTRAST CLINICAL INFORMATION: Multiple falls; EtOH COMPARISON: CT head 12/16/2020, 09/21/2020, 09/20/2020 TECHNIQUE: Contiguous axial imaging was performed from the skull base to vertex without intravenous administration of contrast. Additional 2-D coronal and sagittal reformatted images are generated on the CT workstation and uploaded to PACS. This CT examination was performed using dose optimization techniques as appropriate, variously including the following: *Automated exposure control *Adjustment of mA and/or kV according to patient size (this includes techniques or standardized protocols for targeted exams where dose is matched to indication/reason for exam; i.e. extremities or head) *Use of iterative reconstruction technique DLP: 711 mGy-cm FINDINGS: There is no acute intracranial hemorrhage or hematoma or acute extra-axial fluid collection. Old arachnoid cyst is again seen in the right middle cranial fossa is similar to prior studies. There are generalized atrophic changes with prominence of the cortical sulci and fissures and cisterns and mild ventricular prominence. No interval hydrocephalus. No edema or mass effect. Again, there is extensive bilateral periventricular white matter gliosis, also involving the thalami and midbrain/thaddeus. Midbrain and thalami changes are slightly more prominent on current exam. There is also symmetric involvement in the dentate nuclei/cerebellum. Findings may suggest toxic metabolic disease including hyponatremia. Findings should be correlated with laboratories. The calvarium appears intact. There is no pneumocephalus or orbital emphysema. The visualized sinuses and middle ears and mastoid air cells show no significant mucosal thickening. There are no air-fluid levels. Results called and discussed with Dr. Rosado in the emergency department at [address]/CT head/brain wo con IMPRESSION: 1. No acute intracranial hemorrhage or hematoma. No hydrocephalus or mass effect. 2. Chronic extensive periventricular white matter gliosis. Increased involvement thalami and midbrain and posterior fossa which may suggest toxic or metabolic disease including hyponatremia. Finding should be correlated with laboratories. Follow-up MRI may be helpful for further assessment.
[2021-01-22 11:19] VITALS: BP 121/87; PULSE 77; O2SAT 98
--- NOTE | 2021-01-22 11:23 | ECG_ITS ---
Test Reason : FALL Blood Pressure : / mmHG Vent. Rate : 076 BPM Atrial Rate : 076 BPM P-R Int : 126 ms QRS Dur : 088 ms QT Int : 494 ms P-R-T Axes : 076 061 138 degrees QTc Int : 555 ms Normal sinus rhythm Biatrial enlargement Minimal voltage criteria for LVH, may be normal variant ( Sokolow-Rojas ) ST & T wave abnormality, consider anterolateral ischemia Prolonged QT Abnormal ECG When compared with ECG of 16-DEC-2020 10:32, Premature atrial complexes are no longer Present Nonspecific T wave abnormality has replaced inverted T waves in Inferior leads T wave inversion more evident in Anterior leads QT has lengthened Referred By: Leeann Rosado Electronically Signed By:NELL ADAMS MD
--- NOTE | 2021-01-22 11:24 | ED_ITS ---
HPI - Alcohol General Chief Complaint: Fall Stated Complaint: AMS,LKWT 1HOUR AGO,DETOX,LAST DRINK LAST NOC Time Seen by Provider: 01/22/21 11:18 Source: patient and EMS Mode of arrival: EMS Limitations: no limitations History of Present Illness HPI narrative: Patient is brought to emergency room by EMS. Earlier this morning, EMS/police department was called to the property where the patient is staying. Seems that the landlord wanted the patient remove for his property. The patient was alert, walking. Police Department state. Shortly after, EMS was called for a 2nd time, asking them to bring the patient to the hospital. Since the patient was showing more signs of alcohol intoxication, unsteady gait with a. Patient states he drank alcohol last night. Patient states that he has had multiple falls over the last few days, last fall was earlier this morning. Patient denies headache, neck pain. Related Data Home Medications Medication Instructions Recorded Confirmed folic acid 1 mg tablet 1 tab PO DAILY 09/20/20 01/22/21 thiamine HCl (vitamin B1) 100 mg 1 tab PO DAILY 09/20/20 01/22/21 tablet (Vitamin B-1) albuterol sulfate 90 mcg/actuation 2 puff PO Q4H PRN 12/16/20 01/22/21 aerosol inhaler (ProAir HFA) multivitamin 1 tab PO DAILY 12/16/20 01/22/21 aspirin 81 mg tablet,delayed 1 tab PO DAILY 01/22/21 01/22/21 release fluoxetine 20 mg capsule 2 cap PO QAM 01/22/21 01/22/21 meloxicam 7.5 mg tablet 1 tab PO BID 01/22/21 01/22/21 oxcarbazepine 150 mg tablet 1 tab PO TID 01/22/21 01/22/21 Allergies Allergy/AdvReac Type Severity Reaction Status Date / Time acetaminophen [From PERCOCET] Allergy Mild Rash Verified 09/21/20 17:29 oxycodone [From PERCOCET] Allergy Mild Rash Verified 09/21/20 17:29 Penicillins [PENICILLINS] Allergy Mild Rash Verified 09/21/20 17:29 Review of Systems Review of Systems: Constitutional : No Weight loss, No Fever, No Chills, No Night Sweats, No Fatigue, No Malaise ENT/Mouth : No Hearing loss, No Ear Pain, No Nasal Congestion, No Sinus Pain, No Hoarseness, No sore throat, No Rhinorrhea, No Swallowing Difficulty Eyes: No Eye Pain, No Swelling, No Redness, No Foreign Body, No Discharge, No Vision Changes Cardiovascular : No Chest Pain, No SOB, No Dyspnea on Exertion, No Orthopnea, No Edema, No Palpitations Respiratory : No Cough, No Sputum, No Wheezing, No Smoke Exposure, No Dyspnea Gastrointestinal : No Nausea, No Vomiting, No Diarrhea, No Constipation, No abdominal Pain, No Hematochezia, No Melena Genitourinary : no irregular bleeding, No Dysuria, No Urinary Frequency, No Hematuria, No Urinary Incontinence, No Urgency, No Flank Pain, No Urinary Flow Changes, No Hesitancy Musculoskeletal : No joint pain, No Myalgias, No Joint Swelling Skin : Small abrasions in upper extremities Neuro : No Weakness, No Numbness, No Paresthesias, No Loss of Consciousness, No Dizziness, No Headache Psych : No Anxiety/Panic, No Depression, No SI/HI/AH/VH, No Social Issues, Heme/Lymph: No Bruising, No Bleeding,No Lymphadenopathy Endocrine : No Polyuria, No Polydipsia, No Temperature Intolerance [facility] Past Medical History Medical History Acute hypokalemia Acute hyponatremia Arachnoid cyst Cerebral microvascular disease COPD (chronic obstructive pulmonary disease) H/O ETOH abuse HCV (hepatitis C virus) Heart disease Seizure disorder Surgical History H/O left wrist surgery Social History Social History Household Members: Family Household Members Other:: Brother Housing: Apartment Do you presently have visiting nurse or other home services: No Alcohol intake: current Alcohol intake frequency: 3 or more drinks per day Alcohol type: beer Patient Tobacco Use Status: Current everyday Tobacco user Tobacco use type: Cigarette Cigarette Packs Per Day: 0.5 Cigarettes Per Day: 10.0 Smoked in Last 30 Days: Yes Use of substances other than those prescribed or required for medical reasons: No Advance Directives: No Advance Directives Information Provided: Yes service: No Current occupational status: unemployed Physical Exam Vital Signs: Vital Signs: Last Vital Signs Temp 98.6 F 01/22/21 14:11 Pulse 77 01/22/21 14:11 Resp 13 01/22/21 14:11 BP 157/110 H 01/22/21 14:11 Pulse Ox 95 01/22/21 14:11 Body Mass Index 25.8 Const: Other: Appearance: Alert. Oriented X3. No acute distress. Disheveled Eyes: Pupils equal, round and reactive to light. ENT: Pharynx normal. Neck: Normal inspection. Neck supple. No lymph nodes noted. No crepitus CVS: Normal heart rate and rhythm. Pulses normal. Normal S1 and S2 Respiratory: No respiratory distress. Breath sounds normal. No Wheezing. No rales Abdomen: Soft and nontender. No rigidity. No distention. Skin: Skin warm and dry. Multiple small abrasions in upper extremities Extremities: No lower extremity edema. No lower extremity edema. No Lacerations. No Rash Neuro: Oriented X 3. No motor deficit. No sensory deficit. Moving all extermities. Mild slurred speech Course Course Course Narrative: Patient's troponin is elevated, patient has more pronounced EKG changes in leads V2 to V6. Patient is asymptomatic. Troponin 2. And repeat EKG pending I discussed the patient with Dr. Armstrong, patient being admitted MDM - Alcohol Lab Data Result diagrams: 01/22/21 12:07 01/22/21 12:07 Labs: Lab Results 01/22/21 01/22/21 01/22/21 Range/Units 12:02 12:07 12:07 WBC 9.6 (4.8-10.8) X10*3/uL RBC 3.58 L (4.60-5.80) X10*6/uL Hgb 11.6 L (14.0-18.0) g/dl Hct 32.0 L (42.0-52.0) % MCV 89.4 (80.0-98.0) fL MCH 32.4 (27.0-33.0) pg MCHC 36.3 H (31.0-36.0) g/dl RDW 14.5 (11.0-16.0) % Plt Count 217 (160-400) X10*3/uL MPV 8.9 L (9.4-12.4) fL Immature Gran % (Auto) 0.7 H (0.0-0.4) % Neut % (Auto) 80.2 H (45-73) % Lymph % (Auto) 9.9 L (20-40) % Ferry % (Auto) 8.6 (2-11) % Eos % (Auto) 0.4 (0-4) % Baso % (Auto) 0.2 (0-2) % Lymph # (Auto) 1.0 L (1.2-4.9) X10*3/uL Ferry # (Auto) 0.8 (0.1-1.2) X10*3/uL Eos # (Auto) 0.0 (0.0-0.4) X10*3/uL Baso # (Auto) 0.0 (0.0-0.2) X10*3/uL Abs Immat Gran (auto) 0.07 H (0.00-0.03) X10*3/uL Absolute Neuts (auto) 7.7 (2.0-8.3) x10*3/uL Absolute Nucleated RBC 0.000 (0.0-0.012) X10*3/uL Nucleated RBC % (auto) 0.0 (0.0-0.2) /100WBC PT 11.9 (9.9-13.0) SEC INR 1.0 (0.9-1.1) Sodium (135-145) mmol/L Potassium (3.3-5.1) mmol/L Chloride (96-108) mmol/L Carbon Dioxide (22-29) mmol/L Anion Gap (12-20) BUN (9-16) mg/dL Creatinine (0.5-1.4) mg/dL Estim Creat Clear Calc Estimated GFR Random Glucose (60-115) mg/dL Calcium (8.4-10.2) mg/dL Magnesium (1.6-2.6) mg/dL Total Bilirubin (0.0-1.0) mg/dL Direct Bilirubin (0.0-0.5) mg/dL AST (5-37) U/L ALT (0-40) U/L Alkaline Phosphatase (39-117) U/L Troponin I High Sens (<3.5-35.0) ng/L Total Protein (6.5-8.0) g/dL Albumin (3.5-5.0) g/dL Ethyl Alcohol mg/dL COVID-19 ([facility]) Negative (Negative) COVID-19 Clin Com See Note 01/22/21 01/22/21 01/22/21 Range/Units 12:07 12:07 12:07 WBC (4.8-10.8) X10*3/uL RBC (4.60-5.80) X10*6/uL Hgb (14.0-18.0) g/dl Hct (42.0-52.0) % MCV (80.0-98.0) fL MCH (27.0-33.0) pg MCHC (31.0-36.0) g/dl RDW (11.0-16.0) % Plt Count (160-400) X10*3/uL MPV (9.4-12.4) fL Immature Gran % (Auto) (0.0-0.4) % Neut % (Auto) (45-73) % Lymph % (Auto) (20-40) % Ferry % (Auto) (2-11) % Eos % (Auto) (0-4) % Baso % (Auto) (0-2) % Lymph # (Auto) (1.2-4.9) X10*3/uL Ferry # (Auto) (0.1-1.2) X10*3/uL Eos # (Auto) (0.0-0.4) X10*3/uL Baso # (Auto) (0.0-0.2) X10*3/uL Abs Immat Gran (auto) (0.00-0.03) X10*3/uL Absolute Neuts (auto) (2.0-8.3) x10*3/uL Absolute Nucleated RBC (0.0-0.012) X10*3/uL Nucleated RBC % (auto) (0.0-0.2) /100WBC PT (9.9-13.0) SEC INR (0.9-1.1) Sodium 126 L (135-145) mmol/L Potassium 2.5 L* D (3.3-5.1) mmol/L Chloride 73 L D (96-108) mmol/L Carbon Dioxide 30 H (22-29) mmol/L Anion Gap 26 H (12-20) BUN 18 H (9-16) mg/dL Creatinine 1.43 H (0.5-1.4) mg/dL Estim Creat Clear Calc 52.6 Estimated GFR 51 Random Glucose 103 (60-115) mg/dL Calcium 9.1 D (8.4-10.2) mg/dL Magnesium 1.8 (1.6-2.6) mg/dL Total Bilirubin 0.7 (0.0-1.0) mg/dL Direct Bilirubin 0.3 (0.0-0.5) mg/dL AST 21 (5-37) U/L ALT 13 (0-40) U/L Alkaline Phosphatase 126 H (39-117) U/L Troponin I High Sens 38.7 H* (<3.5-35.0) ng/L Total Protein 6.8 (6.5-8.0) g/dL Albumin 3.7 (3.5-5.0) g/dL Ethyl Alcohol < 10 mg/dL COVID-19 ([facility]) (Negative) COVID-19 Clin Com Imaging Data CT scan - head: Radiologist's impression: FINDINGS: There is no acute intracranial hemorrhage or hematoma or acute extra-axial fluid collection. Old arachnoid cyst is again seen in the right middle cranial fossa is similar to prior studies. There are generalized atrophic changes with prominence of the cortical sulci and fissures and cisterns and mild ventricular prominence. No interval hydrocephalus. No edema or mass effect. Again, there is extensive bilateral periventricular white matter gliosis, also involving the thalami and midbrain/thaddeus. Midbrain and thalami changes are slightly more prominent on current exam. There is also symmetric involvement in the dentate nuclei/cerebellum. Findings may suggest toxic metabolic disease including hyponatremia. Findings should be correlated with laboratories. The calvarium appears intact. There is no pneumocephalus or orbital emphysema.? The visualized sinuses and middle ears and mastoid air cells show no significant mucosal thickening. There are no air-fluid levels. Results called and discussed with Dr. Rosado in the emergency department at [address]/CT head/brain wo con IMPRESSION: ? 1. No acute intracranial hemorrhage or hematoma. No hydrocephalus or mass effect. ? 2. Chronic extensive periventricular white matter gliosis. Increased involvement thalami and midbrain and posterior fossa which may suggest toxic or metabolic disease including hyponatremia. Finding should be correlated with laboratories. Follow-up MRI may be helpful for further assessment. Discharge Plan Discharge Clinical Impression: Acute hyponatremia, Acute hypokalemia, Multiple falls Patient Disposition: Admitted As Inpatient Prescriptions: No Action thiamine HCl (vitamin B1) [Vitamin B-1] 100 mg tablet 1 tab PO DAILY RF: 0 folic acid 1 mg tablet 1 tab PO DAILY RF: 0 multivitamin Tablet 1 tab PO DAILY RF: 0 albuterol sulfate [ProAir HFA] 90 mcg/actuation HFA aerosol inhaler 2 puff PO Q4H PRN (Reason: Shortness Of Breath) RF: 0 oxcarbazepine 150 mg tablet 1 tab PO TID RF: 0 aspirin 81 mg tablet,delayed release (DR/EC) 1 tab PO DAILY RF: 0 meloxicam 7.5 mg tablet 1 tab PO BID RF: 0 fluoxetine 20 mg capsule 2 cap PO QAM RF: 0
[2021-01-22 11:25] VITALS: BP 175/104; PULSE 82; RESP 16; TEMP 36.7; O2SAT 93; BMI 25.8
[2021-01-22 12:00] VITALS: BP 164/103; PULSE 80; RESP 16; O2SAT 100
[2021-01-22 12:12] LABS: MANUAL DIFF FLAG NO
[2021-01-22 12:16] LABS: Basophils Percent Auto 0.2 % (0-2); Eosinophils Percent Auto 0.4 % (0-4); Hemoglobin 11.6 g/dl (14.0-18.0); Imm Gran Abs Auto 0.07 X10*3/uL (0.00-0.03); Imm Gran Pct Auto 0.7 % (0.0-0.4); Lymphocytes Percent Auto 9.9 % (20-40); Mean Corpuscular HGB Conc 36.3 g/dl (31.0-36.0); Mean Corpuscular Hemoglobin 32.4 pg (27.0-33.0); Mean Corpuscular Volume 89.4 fL (80.0-98.0); Mean Platelet Volume 8.9 fL (9.4-12.4); Monocytes Absolute Auto 0.8 X10*3/uL (0.1-1.2); Monocytes Percent Auto 8.6 % (2-11); Neutrophils Absolute Auto 7.7 x10*3/uL (2.0-8.3); Neutrophils Percent Auto 80.2 % (45-73); Platelet Count 217 X10*3/uL (160-400); Red Blood Count 3.58 X10*6/uL (4.60-5.80); Red Cell Distribution Width 14.5 % (11.0-16.0); White Blood Count 9.6 X10*3/uL (4.8-10.8)
[2021-01-22 12:27] LABS: Prothrombin Time 11.9 SEC (9.9-13.0)
[2021-01-22 12:31] LABS: Ethanol < 10 mg/dL
[2021-01-22 12:32] LABS: COVID-19 Test Negative (Negative)
[2021-01-22 12:34] LABS: Alanine Aminotransferase 13 U/L (0-40); Albumin Level 3.7 g/dL (3.5-5.0); Alkaline Phosphatase 126 U/L (39-117); Aspartate Amino Transferase 21 U/L (5-37); Bilirubin Direct 0.3 mg/dL (0.0-0.5); Bilirubin Total 0.7 mg/dL (0.0-1.0); Blood Urea Nitrogen 18 mg/dL (9-16); Calcium 9.1 mg/dL (8.4-10.2); Creatinine Clr Calc Pharmacy 52.6; Estimated Glomerular Filt Rate 51; Glucose Random 103 mg/dL (60-115); Total Protein 6.8 g/dL (6.5-8.0)
[2021-01-22 12:39] LABS: Troponin-I High Sensitivity 38.7 ng/L (<3.5-35.0)
[2021-01-22 12:44] LABS: Anion Gap 26 (12-20); Carbon Dioxide 30 mmol/L (22-29); Chloride 73 mmol/L (96-108); Potassium 2.5 mmol/L (3.3-5.1); Sodium 126 mmol/L (135-145)
[2021-01-22 13:05] LABS: Magnesium 1.8 mg/dL (1.6-2.6)
[2021-01-22] MEDS: Potassium Chloride Packet 20 MEQ PACKET 40 MEQ PO (13:07)
--- NOTE | 2021-01-22 13:11 | PHA.MEDREC ---
Pharmacy Consult ? Medication Reconciliation Pharmacy has completed the medication reconciliation. Patient brought in prescription bottles. Patient had 3 bottle of oxcarbmazepine therefore may not be adherent to the medication. Antonia Guidry, PharmD
[2021-01-22 14:11] VITALS: BP 157/110; PULSE 77; RESP 13; TEMP 37; O2SAT 95
--- NOTE | 2021-01-22 14:23 | ECG_ITS ---
Test Reason : REPEAT Blood Pressure : / mmHG Vent. Rate : 087 BPM Atrial Rate : 087 BPM P-R Int : 124 ms QRS Dur : 078 ms QT Int : 428 ms P-R-T Axes : 083 072 088 degrees QTc Int : 515 ms Normal sinus rhythm Biatrial enlargement ST & T wave abnormality, consider anterior ischemia Prolonged QT Abnormal ECG When compared with ECG of 22-JAN-2021 12:45, Nonspecific T wave abnormality has replaced inverted T waves in Lateral leads Referred By: Leeann Rosado Electronically Signed By:NELL ADAMS MD
[2021-01-22] MEDS: 0.9 % Sodium Chloride 1,000 ML 500 ML IVCONT (14:39)
[2021-01-22] MEDS: Folic Acid 1 MG in 0.9 % Sodium Chloride 50 ML 100.4 MG IV (15:07)
[2021-01-22 15:13] LABS: Troponin-I High Sensitivity 38.3 ng/L (<3.5-35.0)
[2021-01-22 15:43] LABS: Troponin-I High Sensitivity 32.2 ng/L (<3.5-35.0)
[2021-01-22 16:00] VITALS: BP 175/112; PULSE 80; RESP 16; O2SAT 100
--- NOTE | 2021-01-22 16:28 | PM.IMHP ---
History of Present Illness Date of Service: 01/22/21 Attending physician on admission: Dl Armstrong Chief Complaint: Alcohol withdrawal/fall 60-year-old gentleman with past medical history significant for alcohol abuse, COPD, depression, hepatitis C recently discharged from [facility] 12/24/20, after being admitted for hyponatremia and alcohol withdrawal, was brought in by EMS since earlier this morning EMS and police department was called to his property since the landlord wanted the patient removed from his property, at that time patient was alert and walking therefore EMS left but they were called back to bring the patient home since he was showing signs of alcohol intoxication and unsteady gait, on arrival to the emergency room patient admitted that he passed out, his electrolytes were abnormal with a low sodium of 126 potassium, with an anion gap of 26 and a creatinine of 1.4 patient treated in the emergency room with 1 L of normal saline, 40 mEq of potassium and is now being admitted for electrolyte abnormalities, he also noted to have T-wave inversion in anterior lateral leads he denies any chest pain, he denies palpitation he denies any nausea vomiting or diarrhea, he feels hungry and asking for food, he admits to drinking 5 beer per week his last drink was 2 days ago [place] a he smokes 1 pack of cigarette a day. Review of Systems Review of Systems: General no headache, no dizziness, no fever chills. CVS no chest pain, no palpitation. Respiratory no cough, no sob. Gastrointestinal no nausea no vomiting, no abdominal pain no urinary frequency or urgency Musculoskeletal no pain Yes all other systems are reviewed and are negative [facility] Medical History Acute hypokalemia Acute hyponatremia Arachnoid cyst Cerebral microvascular disease COPD (chronic obstructive pulmonary disease) H/O ETOH abuse HCV (hepatitis C virus) Heart disease Seizure disorder Pertinent family history: Not aware of family history Surgical History H/O left wrist surgery Social History Household Members: Family Household Members Other:: Brother Housing: Apartment Do you presently have visiting nurse or other home services: No Alcohol intake: current Alcohol intake frequency: 3 or more drinks per day Alcohol type: beer Patient Tobacco Use Status: Current everyday Tobacco user Tobacco use type: Cigarette Cigarette Packs Per Day: 0.5 Cigarettes Per Day: 10.0 Smoked in Last 30 Days: Yes Use of substances other than those prescribed or required for medical reasons: No Advance Directives: No Advance Directives Information Provided: Yes service: No Current occupational status: unemployed Meds Allergies Allergy/AdvReac Type Severity Reaction Status Date / Time acetaminophen [From PERCOCET] Allergy Mild Rash Verified 09/21/20 17:29 oxycodone [From PERCOCET] Allergy Mild Rash Verified 09/21/20 17:29 Penicillins [PENICILLINS] Allergy Mild Rash Verified 09/21/20 17:29 Active Medications: Current Medications Aspirin (Aspirin Enteric Coated 81 Mg Tablet.Dr) 81 mg PO DAILY [facility] Folic Acid (Folic Acid 1 Mg Tablet) 1 mg PO DAILY [facility] Multivitamins/Vitamin C (Multivitamin Tablet) 1 tab PO DAILY [facility] Non-Formulary Medication (Meloxicam) 1 tab PO BID [facility] Pharmacy Consult (Consult Rx Etoh Phenob Dosing) 1 each MISCELLANE ONCE ONE; Protocol Stop: 01/22/21 16:25 Sodium Chloride (0.9 % Sodium Chloride Flush 3 Ml Syringe) 3 ml IVFLUSH QSHIFT [facility] Thiamine HCl (Thiamine Hcl 100 Mg Tablet) 100 mg PO DAILY [facility] Home Medications Medication Instructions Recorded Confirmed Last Taken Type folic acid 1 mg tablet 1 tab PO DAILY 09/20/20 01/22/21 01/22/21 History thiamine HCl (vitamin B1) 100 mg 1 tab PO DAILY 09/20/20 01/22/21 01/22/21 History tablet (Vitamin B-1) albuterol sulfate 90 mcg/actuation 2 puff PO Q4H PRN 12/16/20 01/22/21 01/22/21 History aerosol inhaler (ProAir HFA) multivitamin 1 tab PO DAILY 12/16/20 01/22/21 01/22/21 History aspirin 81 mg tablet,delayed 1 tab PO DAILY 01/22/21 01/22/21 01/22/21 History release fluoxetine 20 mg capsule 2 cap PO QAM 01/22/21 01/22/21 01/22/21 History meloxicam 7.5 mg tablet 1 tab PO BID 01/22/21 01/22/21 01/22/21 History oxcarbazepine 150 mg tablet 1 tab PO TID 01/22/21 01/22/21 01/22/21 History Physical Exam Vital Signs and Narrative: Vital Signs: Last Vital Signs Temp 98.6 F 01/22/21 14:11 Pulse 80 01/22/21 16:00 Resp 16 01/22/21 16:00 BP 175/112 H 01/22/21 16:00 Pulse Ox 100 01/22/21 16:00 Body Mass Index 25.8 General awake, alert, cachectic, acute distress, answering questions appropriately Neck? supple, no JVD. CVS? regular rate rhythm, Respiratory lungs clear to auscultation, no respiratory distress, no wheeze, no rhonchi. Gastrointestinal abdomen soft, nontender, bowel sounds audible, no guarding , no rigidity. Extremities no edema. Neuro nonfocal , moving all 4 extremity, speech clear. Skin no rash, few dry scabs extremities. Results Labs CBC and Chem 7: 01/22/21 12:07 01/22/21 12:07 Labs: Laboratory Results - last 24 hr 01/22/21 01/22/21 01/22/21 12:02 12:07 12:07 MCV 89.4 MCH 32.4 MCHC 36.3 H RDW 14.5 Plt Count 217 MPV 8.9 L Immature Gran % (Auto) 0.7 H Neut % (Auto) 80.2 H Lymph % (Auto) 9.9 L [place] % (Auto) 8.6 Eos % (Auto) 0.4 Baso % (Auto) 0.2 Lymph # (Auto) 1.0 L [place] # (Auto) 0.8 Eos # (Auto) 0.0 Baso # (Auto) 0.0 Abs Immat Gran (auto) 0.07 H Absolute Neuts (auto) 7.7 Absolute Nucleated RBC 0.000 Nucleated RBC % (auto) 0.0 PT 11.9 INR 1.0 Anion Gap Estim Creat Clear Calc Estimated GFR Random Glucose Calcium Magnesium Total Bilirubin Direct Bilirubin AST ALT Alkaline Phosphatase Troponin I High Sens Total Protein Albumin Ethyl Alcohol COVID-19 ([facility]) Negative COVID-19 Clin Com See Note 01/22/21 01/22/21 01/22/21 12:07 12:07 12:07 MCV MCH MCHC RDW Plt Count MPV Immature Gran % (Auto) Neut % (Auto) Lymph % (Auto) [place] % (Auto) Eos % (Auto) Baso % (Auto) Lymph # (Auto) [place] # (Auto) Eos # (Auto) Baso # (Auto) Abs Immat Gran (auto) Absolute Neuts (auto) Absolute Nucleated RBC Nucleated RBC % (auto) PT INR Anion Gap 26 H Estim Creat Clear Calc 52.6 Estimated GFR 51 Random Glucose 103 Calcium 9.1 D Magnesium 1.8 Total Bilirubin 0.7 Direct Bilirubin 0.3 AST 21 ALT 13 Alkaline Phosphatase 126 H Troponin I High Sens 38.7 H* Total Protein 6.8 Albumin 3.7 Ethyl Alcohol < 10 COVID-19 ([facility]) COVID-19 [facility] 01/22/21 01/22/21 14:32 15:06 MCV MCH MCHC RDW Plt Count MPV Immature Gran % (Auto) Neut % (Auto) Lymph % (Auto) [place] % (Auto) Eos % (Auto) Baso % (Auto) Lymph # (Auto) [place] # (Auto) Eos # (Auto) Baso # (Auto) Abs Immat Gran (auto) Absolute Neuts (auto) Absolute Nucleated RBC Nucleated RBC % (auto) PT INR Anion Gap Estim Creat Clear Calc Estimated GFR Random Glucose Calcium Magnesium Total Bilirubin Direct Bilirubin AST ALT Alkaline Phosphatase Troponin I High Sens 38.3 H* 32.2 Total Protein Albumin Ethyl Alcohol COVID-19 ([facility]) COVID-19 [facility] Radiologist's Impressions: Impressions Head CT 01/22/21 11:23 IMPRESSION: 1. No acute intracranial hemorrhage or hematoma. No hydrocephalus or mass effect. 2. Chronic extensive periventricular white matter gliosis. Increased involvement thalami and midbrain and posterior fossa which may suggest toxic or metabolic disease including hyponatremia. Finding should be correlated with laboratories. Follow-up MRI may be helpful for further assessment. Assessment and Plan (1) Acute hyponatremia: Status: Acute (2) Acute hypokalemia: Status: Acute (3) Multiple falls: Status: Acute (4) Alcoholism: Status: Acute 60-year-old male with a past medical history of alcohol abuse, COPD, depression presented to the hospital with a chief complaint of acute mental status change, unsteady gait Alcohol abuse and withdrawal Will admit patient to medical floor with alcohol withdrawal and impending delirium tremens Placed on phenobarb protocol, thiamine and folic acid Reviewed recent admission note according to?his friend Maria C wright [phone],? patient has been like this for several months he uses a walker to ambulate but he has been declining, not communicating, getting weak, poor by mouth intake , drinks 5-6 beer and fire balls daily for a long time Patient has poor insight due to alcohol use Abnormal CT head reviewed with Radiology likely extensive white matter disease progressing due to continued alcohol use , no active changes therefore will hold off on further imaging. Abnormal EKG Likely due to electrolyte abnormalities will replete and repeat, troponin elevated but flat patient has no chest pain hold off on further workup. Hyponatremia likely beer potomania patient received 1 L of IV normal saline will repeat labs Obtain renal consult for further fluid management Hypokalemia Potassium 2.5 received by mouth potassium will repeat labs and aggressively replace Elevated anion gap with hypochloremia Likely due to poor nutrition alcohol use follow BMP /renal consult Mild Justin likely pre renal s/p IV fluid Hepatitis C outpatient follow-up with GI COPD no acute exacerbation noted cont. prn DuoNeb treatment Tobacco use disorder will place on nicotine patch, counseling done History of anxiety depression previously patient was on psychiatric meds but were discontinued during last hospitalization. DVT prophylaxis with compression therapy Quality Stroke Does the patient have a stroke diagnosis?: No VTE Prior VTE?: No VTE Risk Level:: Medical - moderate - high VTE Device Contraindication: N/A - Device Ordered VTE Drug Contraindication: Treatment Not Indicated
[2021-01-22] MEDS: PHENobarbitaL sodium 130 MG/ML VIAL 212 MG IM (17:11)
--- NOTE | 2021-01-22 17:19 | PM.EVENT ---
Event Note Date of Service: 01/22/21 Event Note: I was asked by Dr. Armstrong to comment on Mr. Mitchell's head CT and his serum sodium. In regards to the CT scan, I do not understand the radiologist's reading. In particular, it is not clear to me that he is implying that the scan shows changes consistent with CPM. I suggest calling the radiologist personally to go over the scan with him. In regards to the patient's hyponatremia, the first thing to do is to rule out beer potomania. If that is what the patient has, than the primary route to correct his sodium is through supplying the patient with food to eat. Given that he is also likely somewhat hypovolemic (as indicated by the renal indices), I would allow the patient to auto rehydrate (ie. drink fluids, as opposed to fluid restriction). If beer potomania is not the problem, than I would slowly rehydrate with Ringer's lactate. Given that the patient was already given 1 L of saline in the ED, the best course of action would be to just recheck a BMP now, and then proceed accordingly. Discussed all the above with Dr. Armstrong.
[2021-01-22] MEDS: Nicotine 14 MG PATCH.TD24 TRANSDERMA (17:42)
[2021-01-22 17:51] LABS: Blood Urea Nitrogen 18 mg/dL (9-16); Estimated Glomerular Filt Rate 56; Glucose Random 79 mg/dL (60-115); Phosphorus 2.5 mg/dL (2.7-4.5)
[2021-01-22 18:11] LABS: Magnesium 1.7 mg/dL (1.6-2.6)
[2021-01-22 18:16] LABS: Anion Gap 19 (12-20); Carbon Dioxide 31 mmol/L (22-29); Chloride 78 mmol/L (96-108); Potassium 3.1 mmol/L (3.3-5.1); Sodium 125 mmol/L (135-145)
[2021-01-22 18:24] LABS: Osmolality, Serum 262 mosm/kg (281-305)
[2021-01-22] MEDS: PHENobarbitaL sodium 130 MG/ML VIAL 159 MG IM (20:56)
--- NOTE | 2021-01-22 21:00 | PC.NURSE ---
pt wakes to voice. pt medicated as per emar. awaiting for Potassium iv from the pharmacy. Respirations easy, n/l. skin w/d.
[2021-01-22 21:28] LABS: Anion Gap 16 (12-20); Blood Urea Nitrogen 18 mg/dL (9-16); Calcium 8.2 mg/dL (8.4-10.2); Carbon Dioxide 31 mmol/L (22-29); Chloride 79 mmol/L (96-108); Creatinine Clr Calc Pharmacy 53.7; Estimated Glomerular Filt Rate 52; Glucose Random 91 mg/dL (60-115); Potassium 2.8 mmol/L (3.3-5.1); Sodium 123 mmol/L (135-145)
[2021-01-22 22:00] VITALS: BP 178/94; PULSE 85; RESP 16; O2SAT 97
[2021-01-22] MEDS: 0.9 % Sodium Chloride 1,000 ML 100 ML IVCONT (23:57)
--- NOTE | 2021-01-22 23:58 | PC.NURSE ---
PT PULLED OUT IV OF RAC. PT STILL HAS LAC IV. FLUIDS UP AND RUNNING ON PUMP WITHOUT DIFFICULTY. SITE INTACT. WILL CONTINUE TO MONTIOR PT.
[2021-01-23] VITALS (7 sets, daily range): BP systolic 150–200; BP diastolic 93–120; PULSE 84–92; RESP 14–18; TEMP 36–37; O2SAT 97–100; BMI 22.1
--- NOTE | 2021-01-23 | ECG_ITS ---
Test Reason : REPEAT Blood Pressure : / mmHG Vent. Rate : 089 BPM Atrial Rate : 089 BPM P-R Int : 126 ms QRS Dur : 076 ms QT Int : 370 ms P-R-T Axes : 083 047 117 degrees QTc Int : 450 ms Sinus rhythm with Premature atrial complexes T wave abnormality, consider anterolateral ischemia RSR' or QR pattern in V1 suggests right ventricular conduction delay Nonspecific T wave abnormality Inferior leads Abnormal ECG When compared with ECG of 22-JAN-2021 14:43, Premature atrial complexes are now Present Nonspecific T wave abnormality now evident in Inferior leads QT has shortened Referred By: Kian Woody Electronically Signed By:NELL ADAMS MD
--- NOTE | 2021-01-23 00:54 | PC.NURSE ---
PHENOBARBITAL UNAVAILABLE IN [place]IXIS AT THIS TIME. Akhil, FARM [employer]ODUCTS SHIPPER AWARE AND WILLING TO GO GET MEDS. PT IS REFUSING TO STRAIGHTEN ARM SO FLUIDS GO IN.
[2021-01-23] MEDS: PHENobarbitaL sodium 130 MG/ML VIAL 159 MG IM (01:08)
--- NOTE | 2021-01-23 01:14 | PC.NURSE ---
MATTEO, PLATFORM M[employer] SUPERVISOR BROUGHT PHENOBARB AND WAS GIVEN TO PT. PT WAKES TO VOICE AND DENIES ANY COMPLAINTS AT THIS TIME. PT AWAITING FOR FURTHER ORDERS.
[2021-01-23] MEDS: 0.9 % Sodium Chloride 1,000 ML 100 ML IVCONT (04:58)
--- NOTE | 2021-01-23 05:21 | PC.NURSE ---
PT INCONTINENT, PT HAD A LARGE AMT OF STOOL IN DIAPER
--- NOTE | 2021-01-23 06:07 | PC.NURSE ---
pt is not shaky, skin w/d. pt denies any pain or complaints. NS up and running on pump. K+ in NS up and running on pump without difficulty. pt awaiting for room assignment. pt remains on monitor.
[2021-01-23] MEDS: Potassium Chloride Packet 20 MEQ PACKET 40 MEQ PO ×3 (06:14→09:40)
[2021-01-23 06:28] LABS: Anion Gap 15 (12-20); Blood Urea Nitrogen 16 mg/dL (9-16); Calcium 8.1 mg/dL (8.4-10.2); Carbon Dioxide 31 mmol/L (22-29); Chloride 79 mmol/L (96-108); Creatinine Clr Calc Pharmacy 64.3; Estimated Glomerular Filt Rate > 60; Glucose Random 89 mg/dL (60-115); Magnesium 1.6 mg/dL (1.6-2.6); Potassium 2.5 mmol/L (3.3-5.1); Sodium 122 mmol/L (135-145)
--- NOTE | 2021-01-23 06:45 | PM.EVENT ---
Event Note Date of Service: 02/02/21 Event Note: Hyponatremia: Patient's follow-up sodium dropped to 122. Chloride was 79. Bicarb 31. VBG pending. Serum osmolality of 268, urine osmolality of 288; Patient has been running normal saline at 200 cc/hour. Discussed with Dr. Reyez from Nephrology, reviewed the labs and opines that patient is still hypovolemic. Recommended to continue normal saline at 200 cc/hour. Hypokalemia: Patient was given 40 mEq of KCl p.o. just prior to the labs were drawn. The labs came out S potassium of 2.5. Patient was given another 40 mEq. To follow the potassium levels at 9:00 a.m. blood chemistry. Also given magnesium sulfate 1 g IV. Will sign out to the day hospitalist for follow-up
[2021-01-23] MEDS: Magnesium Sulfate/D5W 1 GM/100 ML PIGGYBACK IV (07:25)
[2021-01-23] MEDS: amLODIPine Besylate 2.5 MG TABLET PO (07:25)
--- NOTE | 2021-01-23 08:39 | P.PNIM_ITS ---
Subjective Subjective Date of Service: 01/24/21 Interval History: Seen in f/u for alcohol witdrawal, severe hyponateremia, he seeems better today, no obvious signs of withdrawal Review of Systems no fever some confusion no seizure Physical Exam Vital Signs: Vital Signs: Last Vital Signs Temp 98.6 F 01/22/21 14:11 Pulse 84 01/23/21 07:25 Resp 18 01/23/21 02:30 BP 200/120 H 01/23/21 07:25 Pulse Ox 97 01/22/21 22:00 Body Mass Index 25.8 Const: Other: General: AO X 2, no acute distress Resp: CTA bilateral CVS: S1,S2,RRR GI: +BS, NT, no distention Skin: No rash Neuro: motor grossly intact Psych: appropriate affect Objective Data Active Medications Aspirin (Aspirin Enteric Coated 81 Mg Tablet.Dr) 81 mg PO DAILY [facility] Folic Acid (Folic Acid 1 Mg Tablet) 1 mg PO DAILY [facility] Potassium Chloride/Sodium Chloride () 20 meq in 1,000 mls @ 200 mls/hr IVCONT .Q5H [facility] Last Infusion: 01/23/21 07:23 Dose: 200 mls/hr Documented by: CLEMENCIA Medication (No Benzodiazepines) 1 each MISCELLANE DAILY [facility] Multivitamins/Vitamin C (Multivitamin Tablet) 1 tab PO DAILY [facility] Naproxen (Naproxen 250 Mg Tablet) 250 mg PO BID [facility] Last Admin: 01/22/21 22:00 Dose: Not Given Documented by: KALA Non-Admin Reason: Patient Refused Nicotine (Nicotine 14 Mg Patch.Td24) 14 mg TRANSDERMA DAILY [facility] Last Admin: 01/22/21 17:42 Dose: 14 mg Documented by: ROMELIA Phenobarbital (Phenobarbital 15 Mg Tablet) 45 mg PO BID [facility]; Protocol Stop: 01/24/21 21:01 Phenobarbital (Phenobarbital 30 Mg Tablet) 30 mg PO BID [facility]; Protocol Stop: 01/26/21 21:01 Phenobarbital (Phenobarbital 30 Mg Tablet) 30 mg PO DAILY [facility]; Protocol Stop: 01/28/21 09:01 Sodium Chloride (0.9 % Sodium Chloride Flush 3 Ml Syringe) 3 ml IVFLUSH QSHIFT [facility] Last Admin: 01/23/21 07:23 Dose: Not Given Documented by: CLEMENCIA Non-Admin Reason: IV Running Thiamine HCl (Thiamine Hcl 100 Mg Tablet) 100 mg PO DAILY [facility] Labs CBC & Chem 7: 01/22/21 12:07 01/24/21 05:47 Assessment and Plan (1) Acute hyponatremia: Status: Acute (2) Multiple falls: Status: Acute Assessment and Plan: 60-year-old male with a past medical history of alcohol abuse, COPD, depression presented to the hospital with a chief complaint of acute mental status change, unsteady gait #Severe Hyponatremia related to alcohol use--slow correction with fluid restriction, NS with nephrology guidance, essentially level unchanged. I think he nees more NS - #Alcohol abuse and withdrawal with impending DTs continue phenobarb protocol, thiamine and folic acid According to friend Maria C wright [phone],? patient has been like this for several months he uses a walker to ambulate but he has been declining, not communicating, getting weak, poor by mouth intake , drinks 5-6 beer and fire balls daily for a long time Patient has poor insight due to alcohol use Abnormal CT head reviewed with Radiology likely extensive white matter disease progressing due to continued alcohol use , no active changes therefore will hold off on further imaging. #Abnormal EKG Likely due to electrolyte abnormalities will replete and repeat, troponin elevated but flat patient has no chest pain hold off on further workup. #Hypokalemia--will replace with IV and oral K #Anion gap aloholic ketoacidosis--resolved with fluid #Mild Justin likely pre renal, resolved with IVF #Hepatitis C outpatient follow-up with GI #COPD no acute exacerbation noted cont. prn DuoNeb treatment #Tobacco use disorder will place on nicotine patch, counseling done #History of anxiety depression previously patient was on psychiatric meds but? were discontinued during last hospitalization. DVT prophylaxis with compression therapy Quality Stroke Does the patient have a stroke diagnosis?: No VTE Prior VTE?: No VTE Risk Level:: Medical - moderate - high VTE Device Contraindication: N/A - Device Ordered VTE Drug Contraindication: Treatment Not Indicated
[2021-01-23 08:55] LABS: Venous Blood Gas Refer to POC result
[2021-01-23 08:55] LABS: VBG Base Excess 10.4 mmol/L; VBG HCO3 36 mmol/L (22-26); VBG pCO2 56 mmHg; VBG pH 7.42 (7.32-7.43); VBG pO2 50 mmHg
[2021-01-23] MEDS: Aspirin Enteric Coated 81 MG TABLET.DR PO (09:39)
[2021-01-23] MEDS: NaPROXEN 250 MG TABLET PO ×2 (09:39→20:39)
[2021-01-23] MEDS: Folic Acid 1 MG TABLET PO (09:39)
[2021-01-23] MEDS: Multivitamin TABLET 1 TAB PO (09:39)
[2021-01-23] MEDS: PHENobarbitaL 15 MG TABLET 45 MG PO ×2 (09:39→20:39)
[2021-01-23] MEDS: Thiamine HCL 100 MG TABLET PO (09:39)
--- NOTE | 2021-01-23 09:40 | MHC.CM.PN ---
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 PT SLEEPING. CM TO REVISIT
[2021-01-23] MEDS: Nicotine 14 MG PATCH.TD24 TRANSDERMA (10:00)
--- NOTE | 2021-01-23 10:42 | MHC.RECOVSUP ---
? Reason for consult:Recovery support o Current location: ED 15 o Identified substance use concern:ETOH - Withdrawal - Support ? Intervention: o MAT started or to be started o Community resources provided o Harm reduction discussion ? Plan: o Referral to [facility] o Follow up tomorrow o Patient to follow up with [facility] after discharge ? Additional information:Spoke with patient about MAT, detox at a facility, fully discussed MAT with patient. P]atient was receptive to giving MAT a chance. So I referred him to the [facility].
[2021-01-23 11:19] LABS: Anion Gap 13 (12-20); Blood Urea Nitrogen 14 mg/dL (9-16); Carbon Dioxide 29 mmol/L (22-29); Chloride 85 mmol/L (96-108); Creatinine Clr Calc Pharmacy 67.2; Estimated Glomerular Filt Rate > 60; Glucose Random 126 mg/dL (60-115); Potassium 4.1 mmol/L (3.3-5.1); Sodium 123 mmol/L (135-145)
[2021-01-23 12:22] LABS: Anion Gap 13 (12-20); Carbon Dioxide 28 mmol/L (22-29); Chloride 87 mmol/L (96-108); Potassium 4.1 mmol/L (3.3-5.1); Sodium 124 mmol/L (135-145)
--- NOTE | 2021-01-23 12:56 | MHC.CM.PN ---
CM MET WITH PT BRIEFLY WHO REPORTS NOTHING HAS CHANGED FROM HIS LAST ADMISSION. WHEN CM ASKS IF YOLETTE BROUSSARD IS HIS PCP, HE NODS TO INDICATE YES PER PREVIOUS ADMISSIONS, PT LIVES ALONE AND IS INDEPENDENT WITH CARE PT HAS NO DME AND NO SERVICES PT HAS A HCP ON FILE CURRENT DC PLAN IS HOME WITH RESOURCES PROVIDED BY [employer]. PT REPORTS HE HAS A RIDE HOME HOWEVER PER HISTORY, PT USUALLY USES [facility]
[2021-01-23] MEDS: 0.9 % Sodium Chloride Flush 3 ML SYRINGE IVFLUSH (20:39)
--- NOTE | 2021-01-23 21:30 | PM.PNNEP ---
Subjective Subjective Date of Service: 02/09/21 Physical Exam Vital Signs: Vital Signs: Last Vital Signs Temp 98 F 01/23/21 15:38 Pulse 88 01/23/21 18:00 Resp 14 01/23/21 18:00 BP 180/100 H 01/23/21 18:00 Pulse Ox 100 01/23/21 15:38 Body Mass Index 22.1 Objective Data Labs CBC & Chem 7: 01/22/21 12:07 01/26/21 06:06 Labs: Laboratory Results - last 24 hr 01/23/21 01/23/21 01/23/21 05:43 08:42 10:46 VBG pH 7.42 VBG pCO2 56 VBG pO2 50 VBG HCO3 36 H VBG O2 Saturation 75.0 VBG Base Excess 10.4 Sodium 122 L 123 L Potassium 2.5 L* 4.1 D Chloride 79 L 85 L Carbon Dioxide 31 H 29 Anion Gap 15 13 BUN 16 14 Creatinine 1.17 1.12 Estim Creat Clear Calc 64.3 67.2 Estimated GFR > 60 > 60 Random Glucose 89 126 H D Calcium 8.1 L 8.0 L Magnesium 1.6 01/23/21 12:07 VBG pH VBG pCO2 VBG pO2 VBG HCO3 VBG O2 Saturation VBG Base Excess Sodium 124 L Potassium 4.1 Chloride 87 L Carbon Dioxide 28 Anion Gap 13 BUN Creatinine Estim Creat Clear Calc Estimated GFR Random Glucose Calcium Magnesium Procedures Date of Service Date of Service: 01/23/21 Assessment & Plan Assessment and plan (1) Alcoholism: Status: Acute Assessment and Plan: Hyponatremia Hypokalemia/ metabolic alkalosis HTN Hep C Alcohol use Work up ordered Check p pNa Q 2hrs Check urine 'Na/Cr/Cl /Osm Ordered PA/PRA Full consult dictated Time Spent With Patient Time: Total time spent is greater than 50% in coordination of care (as documented) at patient's floor/unit and/or counseling patient: Time with patient: Greater than 35 minutes Progress Note: Quality Stroke Does the patient have a stroke diagnosis?: No
[2021-01-24] VITALS (8 sets, daily range): BP systolic 160–190; BP diastolic 73–110; PULSE 84–94; RESP 14–18; TEMP 35.9–36.9; O2SAT 96–100
[2021-01-24 02:03] LABS: Appearance Urine CLEAR; Color Urine YELLOW; Glucose Urine UA 100 MG/DL (NEG); Leukocyte Esterase Urine NEG (NEG); Nitrite Urine NEG (NEG); PH 6.5 (5.0-8.0); Specific Gravity - Urine 1.015 (1.005-1.025); UACC Culture Trigger NO; Urine Blood NEG (NEG); Urine Ketones NEG (NEG); Urine Protein 2+ MG/DL (NEG-TRACE)
[2021-01-24 02:20] LABS: Creatinine Urine 74.99 mg/dL
[2021-01-24 02:23] LABS: RBC Urine 0-2 /HPF (0); Squamous Epithelial Cell Urine TRACE /LPF; WBC Urine 0-2 /HPF (0-4)
[2021-01-24 02:26] LABS: Amphetamine Screen Urine Not Detected (Not Detect); Barbiturates, Urine POSITIVE (Not Detect); Benzodiazepines Screen Urine Not Detected (Not Detect); Cannabinoid Screen Urine Not Detected (Not Detect); Cocaine Screen Urine Not Detected (Not Detect); Fentanyl, urine Not Detected (Not Detect); Opiate Screen Urine Not Detected (Not Detect); Phencyclidine Screen Urine Not Detected (Not Detect)
[2021-01-24 02:38] LABS: Osmolality Urine 415 mosm/kg (373-1093)
[2021-01-24 08:24] LABS: Anion Gap 9 (12-20); Blood Urea Nitrogen 15 mg/dL (9-16); Calcium 7.4 mg/dL (8.4-10.2); Carbon Dioxide 30 mmol/L (22-29); Chloride 92 mmol/L (96-108); Creatinine Clr Calc Pharmacy 75.1; Estimated Glomerular Filt Rate > 60; Glucose Random 97 mg/dL (60-115); Potassium 3.7 mmol/L (3.3-5.1); Sodium 127 mmol/L (135-145)
[2021-01-24] MEDS: Aspirin Enteric Coated 81 MG TABLET.DR PO (09:40)
[2021-01-24] MEDS: Multivitamin TABLET 1 TAB PO (09:41)
[2021-01-24] MEDS: PHENobarbitaL 15 MG TABLET 45 MG PO ×2 (09:41→20:54)
[2021-01-24] MEDS: Folic Acid 1 MG TABLET PO (09:42)
[2021-01-24] MEDS: Thiamine HCL 100 MG TABLET PO (09:42)
[2021-01-24] MEDS: Nicotine 14 MG PATCH.TD24 TRANSDERMA (09:42)
[2021-01-24] MEDS: NaPROXEN 250 MG TABLET PO ×2 (09:42→20:54)
[2021-01-24] MEDS: 0.9 % Sodium Chloride Flush 3 ML SYRINGE IVFLUSH ×2 (09:47→20:54)
--- NOTE | 2021-01-24 10:39 | HO.PM.IMPN ---
Subjective Subjective Date of Service: 01/24/21 Interval History: Seen in f/u for alcohol witdrawal, severe hyponateremia, no obvious signs of withdrawal, cooperative. Sodium level is better at 127 Review of Systems no fever some confusion no seizure Physical Exam Vital Signs: Vital Signs: Last Vital Signs Temp 97.9 F 01/24/21 07:26 Pulse 86 01/24/21 07:26 Resp 18 01/24/21 07:26 BP 164/73 H 01/24/21 07:26 Pulse Ox 100 01/24/21 07:26 Body Mass Index 22.1 Const: Other: General: AO X 2, no acute distress Resp: CTA bilateral CVS: S1,S2,RRR GI: +BS, NT, no distention Skin: No rash Neuro: motor grossly intact Psych: appropriate affect Objective Data Active Medications Aspirin (Aspirin Enteric Coated 81 Mg Tablet.) 81 mg PO DAILY [facility] Last Admin: 01/24/21 09:40 Dose: 81 mg Documented by: NOELLE Folic Acid (Folic Acid 1 Mg Tablet) 1 mg PO DAILY [facility] Last Admin: 01/24/21 09:42 Dose: 1 mg Documented by: NOELLE Potassium Chloride/Sodium Chloride () 20 meq in 1,000 mls @ 200 mls/hr IVCONT .Q5H [facility] Last Admin: 01/24/21 09:59 Dose: 200 mls/hr Documented by: NOELLE Medication (No Benzodiazepines) 1 each MISCELLANE DAILY [facility] Multivitamins/Vitamin C (Multivitamin Tablet) 1 tab PO DAILY [facility] Last Admin: 01/24/21 09:41 Dose: 1 tab Documented by: NOELLE Naproxen (Naproxen 250 Mg Tablet) 250 mg PO BID [facility] Last Admin: 01/24/21 09:42 Dose: 250 mg Documented by: NOELLE Nicotine (Nicotine 14 Mg Patch.Td24) 14 mg TRANSDERMA DAILY [facility] Last Admin: 01/24/21 09:42 Dose: 14 mg Documented by: NOELLE Phenobarbital (Phenobarbital 15 Mg Tablet) 45 mg PO BID [facility]; Protocol Stop: 01/24/21 21:01 Last Admin: 01/24/21 09:41 Dose: 45 mg Documented by: NOELLE Phenobarbital (Phenobarbital 30 Mg Tablet) 30 mg PO BID [facility]; Protocol Stop: 01/26/21 21:01 Phenobarbital (Phenobarbital 30 Mg Tablet) 30 mg PO DAILY [facility]; Protocol Stop: 01/28/21 09:01 Sodium Chloride (0.9 % Sodium Chloride Flush 3 Ml Syringe) 3 ml IVFLUSH QSHIFT [facility] Last Admin: 01/24/21 09:47 Dose: 3 ml Documented by: NOELLE Thiamine HCl (Thiamine Hcl 100 Mg Tablet) 100 mg PO DAILY [facility] Last Admin: 01/24/21 09:42 Dose: 100 mg Documented by: NOELLE Labs CBC & Chem 7: 01/22/21 12:07 01/24/21 05:47 Labs: Laboratory Results - last 24 hr 01/23/21 01/23/21 01/24/21 10:46 12:07 01:23 Anion Gap 13 13 Estim Creat Clear Calc 67.2 Estimated GFR > 60 Random Glucose 126 H D Calcium 8.0 L Urine Color Urine Appearance Urine pH Ur Specific [place] Urine Protein Urine Glucose (UA) Urine Ketones Urine Blood Urine Nitrite Ur Leukocyte Esterase Urine RBC Urine WBC Ur Squamous Epith Cells Urine Bacteria Urine Osmolality 415 Ur Random Sodium Ur Random Chloride Urine Creatinine Urine Opiates Screen Urine Fentanyl Screen Ur Barbiturates Screen Ur Phencyclidine Scrn Ur Amphetamines Screen U Benzodiazepines Scrn Urine Cocaine Screen U Marijuana (THC) Screen 01/24/21 01/24/21 01/24/21 01:23 01:23 01:23 Anion Gap Estim Creat Clear Calc Estimated GFR Random Glucose Calcium Urine Color YELLOW Urine Appearance CLEAR Urine pH 6.5 Ur Specific [place] 1.015 Urine Protein 2+ H Urine Glucose (UA) 100 H Urine Ketones NEG Urine Blood NEG Urine Nitrite NEG Ur Leukocyte Esterase NEG Urine RBC 0-2 Urine WBC 0-2 Ur Squamous Epith Cells TRACE Urine Bacteria NONE Urine Osmolality Ur Random Sodium 25.0 Ur Random Chloride 68.0 Urine Creatinine 74.99 Urine Opiates Screen Not Detected Urine Fentanyl Screen Not Detected Ur Barbiturates Screen POSITIVE H Ur Phencyclidine Scrn Not Detected Ur Amphetamines Screen Not Detected U Benzodiazepines Scrn Not Detected Urine Cocaine Screen Not Detected U Marijuana (THC) Screen Not Detected 01/24/21 01/24/21 01/24/21 01:24 01:24 05:47 Anion Gap 9 L Estim Creat Clear Calc 75.1 Estimated GFR > 60 Random Glucose 97 Calcium 7.4 L D Urine Color Urine Appearance Urine pH Ur Specific [place] Urine Protein Urine Glucose (UA) Urine Ketones Urine Blood Urine Nitrite Ur Leukocyte Esterase Urine RBC Urine WBC Ur Squamous Epith Cells Urine Bacteria Urine Osmolality Ur Random Sodium Ur Random Chloride Cancelled Urine Creatinine Cancelled Urine Opiates Screen Urine Fentanyl Screen Ur Barbiturates Screen Ur Phencyclidine Scrn Ur Amphetamines Screen U Benzodiazepines Scrn Urine Cocaine Screen U Marijuana (THC) Screen Assessment and Plan (1) Acute hyponatremia: Status: Acute (2) Multiple falls: Status: Acute (3) Acute hypokalemia: Status: Acute Assessment and Plan: 60-year-old male with a past medical history of alcohol abuse, COPD, depression presented to the hospital with a chief complaint of acute mental status change, unsteady gait #Severe Hyponatremia related to alcohol use--slow correction with fluid restriction, NS with nephrology guidance, essentially level unchanged. I think he nees more NS - #Alcohol abuse and withdrawal with impending DTs continue phenobarb protocol, thiamine and folic acid According to friend Maria C kyle [phone],? patient has been like this for several months he uses a walker to ambulate but he has been declining, not communicating, getting weak, poor by mouth intake , drinks 5-6 beer and fire balls daily for a long time Patient has poor insight due to alcohol use Abnormal CT head reviewed with Radiology likely extensive white matter disease progressing due to continued alcohol use , no active changes therefore will hold off on further imaging. #Abnormal EKG Likely due to electrolyte abnormalities will replete and repeat, troponin elevated but flat patient has no chest pain hold off on further workup. #Hypokalemia--repleted and corrected #Anion gap aloholic ketoacidosis--resolved with fluid #Mild Justin likely pre renal, resolved with IVF #Hepatitis C outpatient follow-up with GI #COPD no acute exacerbation noted cont. prn DuoNeb treatment #Tobacco use disorder will place on nicotine patch, counseling done #History of anxiety depression previously patient was on psychiatric meds but? were discontinued during last hospitalization. #Mild protein calory malnutrition--ensure DVT prophylaxis with compression therapy Quality Stroke Does the patient have a stroke diagnosis?: No VTE Prior VTE?: No VTE Risk Level:: Medical - moderate - high VTE Device Contraindication: N/A - Device Ordered VTE Drug Contraindication: Treatment Not Indicated
--- NOTE | 2021-01-24 14:44 | MHC.RECOVSUP ---
Recovery Support note: Patient is a 60 year old Yoruba speaking male who presented to [facility] due to altered mental status. This bond writer met with patient in 485 to discuss his alcohol use and recovery supports. Patient reports he was drinking 5-6 beers daily and that this was his typical amount for the past several months. Patient reports he stopped drinking because he wants to maintain sobriety. Patient acknowledges that alcohol withdrawal is dangerous and the risk of withdrawal involved in stopping abruptly. Patient reports he has had significant periods of sobriety and that his last period was over a year ago. Patient reports he finds it helpful to stay busy and that he tinkers with things to occupy his time. Discussed AA and IOP with patient. Patient reports he does not like AA and that he doesn't like to be in groups or crowds. Discussed [facility] and Recovery Coaching. Patient is agreeable to meeting with a horse riding coach or instructor later doctors hospital. This bond writer will introduce patient to horse riding coach or instructor.
--- NOTE | 2021-01-24 16:00 | P.PNNP_ITS ---
Subjective Subjective Date of Service: 01/24/21 Interval history: Improving clinically and sodium up to 127 receiving normal saline with KCL at 200 cc/hr Hypertensive Denies headache, nausea, or shortness of breath Physical Exam Vital Signs: Vital Signs: Last Vital Signs Temp 97.6 F 01/24/21 11:23 Pulse 88 01/24/21 11:23 Resp 18 01/24/21 11:23 BP 165/90 H 01/24/21 11:23 Pulse Ox 96 01/24/21 11:23 Body Mass Index 22.1 BP up Const: General: alert, awake and tired appearing Neck: Thyroid: Thyroid normal Resp: Auscultation: clear to auscultation bilaterally Cardio: Jugular venous distension: no JVD Rate: regular rate Rhythm: regular rhythm Heart sounds: S1 normal heart sound present and S2 normal hear t sound present Peripheral pulses: Peripheral pulses 2+ throughout GI: Inspection: Yes normal to inspection Percussion: Yes normal to percussion Auscultation: normal bowel sounds Neuro: Cranial nerves: Yes CN's II-XII intact bilaterally Extrem: General: Yes no pedal edema Objective Data Labs CBC & Chem 7: 01/22/21 12:07 01/24/21 05:47 Labs: Laboratory Results - last 24 hr 01/24/21 01/24/21 01/24/21 01:23 01:23 01:23 Sodium Potassium Chloride Carbon Dioxide Anion Gap BUN Creatinine Estim Creat Clear Calc Estimated GFR Random Glucose Calcium Urine Color YELLOW Urine Appearance CLEAR Urine pH 6.5 Ur Specific [place] 1.015 Urine Protein 2+ H Urine Glucose (UA) 100 H Urine Ketones NEG Urine Blood NEG Urine Nitrite NEG Ur Leukocyte Esterase NEG Urine RBC 0-2 Urine WBC 0-2 Ur Squamous Epith Cells TRACE Urine Bacteria NONE Urine Osmolality 415 Ur Random Sodium 25.0 Ur Random Chloride 68.0 Urine Creatinine 74.99 Urine Opiates Screen Urine Fentanyl Screen Ur Barbiturates Screen Ur Phencyclidine Scrn Ur Amphetamines Screen U Benzodiazepines Scrn Urine Cocaine Screen U Marijuana (THC) Screen 01/24/21 01/24/21 01/24/21 01:23 01:24 01:24 Sodium Potassium Chloride Carbon Dioxide Anion Gap BUN Creatinine Estim Creat Clear Calc Estimated GFR Random Glucose Calcium Urine Color Urine Appearance Urine pH Ur Specific [place] Urine Protein Urine Glucose (UA) Urine Ketones Urine Blood Urine Nitrite Ur Leukocyte Esterase Urine RBC Urine WBC Ur Squamous Epith Cells Urine Bacteria Urine Osmolality Ur Random Sodium Ur Random Chloride Cancelled Urine Creatinine Cancelled Urine Opiates Screen Not Detected Urine Fentanyl Screen Not Detected Ur Barbiturates Screen POSITIVE H Ur Phencyclidine Scrn Not Detected Ur Amphetamines Screen Not Detected U Benzodiazepines Scrn Not Detected Urine Cocaine Screen Not Detected U Marijuana (THC) Screen Not Detected 01/24/21 05:47 Sodium 127 L Potassium 3.7 Chloride 92 L Carbon Dioxide 30 H Anion Gap 9 L BUN 15 Creatinine 0.97 Estim Creat Clear Calc 75.1 Estimated GFR > 60 Random Glucose 97 Calcium 7.4 L D Urine Color Urine Appearance Urine pH Ur Specific [place] Urine Protein Urine Glucose (UA) Urine Ketones Urine Blood Urine Nitrite Ur Leukocyte Esterase Urine RBC Urine WBC Ur Squamous Epith Cells Urine Bacteria Urine Osmolality Ur Random Sodium Ur Random Chloride Urine Creatinine Urine Opiates Screen Urine Fentanyl Screen Ur Barbiturates Screen Ur Phencyclidine Scrn Ur Amphetamines Screen U Benzodiazepines Scrn Urine Cocaine Screen U Marijuana (THC) Screen Procedures Date of Service Date of Service: 01/24/21 Assessment & Plan Assessment and plan (1) Acute hyponatremia: Status: Acute Assessment and Plan: Low FeNa is consistent with likely hypovolemic hyponatremia and he is responding to normal saline. However, he has chronically been taking oxcarbazepine for a remote seizure and this is infamous for causing and SIADH like picture, hyponatremia. In addition, he was taking meloxicam which potentiates the effect of SDH and was drinking alcohol with poor po intake. So multifactorial hyponatremia. We should consider getting him off of oxcarbaz and ask him to avoid NSAIDS in the future as well His BP is elevated and we can reduce th normal saline now to 75 cc/hr (2) Acute hypokalemia: Status: Acute Assessment and Plan: Unclear whether this is due to effects of alcohol to cause inappropriate kaliuresis or another K wasting disorder such as primary aldosteronism; ARR has been ordered: please ensure this was sent K is better, continue to replete po as we reduce the IV rate; (3) Alcoholism: Status: Acute (4) Hypertension: Status: Acute Assessment and Plan: Pt very hypertensive; once ARR is drawn, can start valsartan 80 mg daily and consider using spironolactone but would await ARR first; he is hypovolemic so I suspect both Adelina and renin will be elevated (5) Metabolic alkalosis: Status: Acute Assessment and Plan: Unclear whether he was vomiting prior to admission or if this could represent hyperaldo state; will check urine chloride and venous pH Assessment and Plan: Check adelina/renin Replete K Reduce IVF to 75/hr Add valsartan or losartan at 80 or 25 mg daily Check urine chloride consider tapering and slow discontinuation of oxcarbazepine as it is know to cause hyponatremia recheck urine sodium, osm Time Spent With Patient Time: Total time spent is greater than 50% in coordination of care (as documented) at patient's floor/unit and/or counseling patient: Progress Note: Quality Stroke Does the patient have a stroke diagnosis?: No
[2021-01-24] MEDS: amLODIPine Besylate 5 MG TABLET PO (18:07)
--- NOTE | 2021-01-24 18:31 | MHC.RECOVSUP ---
Met with Pt. he states that he is still interested in having a mechanic recovery.I told him that I would make the referral for a mechanic recovery. Also Pt. is interested in starting MAT for his alcoholism.Pt. seems to be receptive to the information I gave him.Follow up with Pt. this week.
[2021-01-25 03:19] VITALS: BP 177/95; PULSE 85; RESP 18; TEMP 36.4; O2SAT 100
[2021-01-25 07:38] VITALS: BP 165/80; PULSE 91; TEMP 36.8; O2SAT 100
[2021-01-25 08:11] LABS: Anion Gap 10 (12-20); Blood Urea Nitrogen 20 mg/dL (9-16); Calcium 7.3 mg/dL (8.4-10.2); Carbon Dioxide 29 mmol/L (22-29); Chloride 95 mmol/L (96-108); Creatinine Clr Calc Pharmacy 53.9; Estimated Glomerular Filt Rate 54; Glucose Random 95 mg/dL (60-115); Potassium 3.7 mmol/L (3.3-5.1); Sodium 130 mmol/L (135-145)
[2021-01-25 08:19] LABS: Anion Gap 10 (12-20); Blood Urea Nitrogen 19 mg/dL (9-16); Calcium 7.6 mg/dL (8.4-10.2); Carbon Dioxide 30 mmol/L (22-29); Chloride 94 mmol/L (96-108); Creatinine Clr Calc Pharmacy 59.2; Estimated Glomerular Filt Rate > 60; Glucose Random 74 mg/dL (60-115); Potassium 3.9 mmol/L (3.3-5.1); Sodium 130 mmol/L (135-145)
[2021-01-25] MEDS: 0.9 % Sodium Chloride Flush 3 ML SYRINGE IVFLUSH ×2 (08:55→16:13)
[2021-01-25] MEDS: PHENobarbitaL 30 MG TABLET PO ×2 (08:55→20:11)
[2021-01-25] MEDS: Folic Acid 1 MG TABLET PO (08:55)
[2021-01-25] MEDS: Nicotine 14 MG PATCH.TD24 TRANSDERMA (08:56)
[2021-01-25] MEDS: NaPROXEN 250 MG TABLET PO ×2 (08:56→20:11)
[2021-01-25] MEDS: Aspirin Enteric Coated 81 MG TABLET.DR PO (08:56)
[2021-01-25] MEDS: Multivitamin TABLET 1 TAB PO (08:56)
[2021-01-25] MEDS: Thiamine HCL 100 MG TABLET PO (08:56)
--- NOTE | 2021-01-25 11:50 | P.PNIM_ITS ---
Subjective Subjective Date of Service: 01/25/21 Interval History: Improving clinically and sodium up to 130 receiving normal saline with KCL at 200 cc/hr BP is better Review of Systems no n/v no confusion no seizure Physical Exam Vital Signs: Vital Signs: Last Vital Signs Temp 98.2 F 01/25/21 07:38 Pulse 91 01/25/21 07:38 Resp 18 01/25/21 03:19 BP 165/80 H 01/25/21 07:38 Pulse Ox 100 01/25/21 07:38 Body Mass Index 22.1 Const: Other: General: AO X 3, no acute distress Resp: CTA bilateral CVS: S1,S2,RRR GI: +BS, NT, no distention Skin: No rash Neuro: motor grossly intact Psych: appropriate affect Objective Data Active Medications Aspirin (Aspirin Enteric Coated 81 Mg Tablet.) 81 mg PO DAILY [facility] Last Admin: 01/25/21 08:56 Dose: 81 mg Documented by: CASSIE Folic Acid (Folic Acid 1 Mg Tablet) 1 mg PO DAILY [facility] Last Admin: 01/25/21 08:55 Dose: 1 mg Documented by: CASSIE Potassium Chloride/Sodium Chloride () 20 meq in 1,000 mls @ 200 mls/hr IVCONT .Q5H [facility] Last Admin: 01/25/21 06:43 Dose: Not Given Documented by: ROXANNA Non-Admin Reason: IV Running Medication (No Benzodiazepines) 1 each MISCELLANE DAILY [facility] Multivitamins/Vitamin C (Multivitamin Tablet) 1 tab PO DAILY [facility] Last Admin: 01/25/21 08:56 Dose: 1 tab Documented by: CASSIE Naproxen (Naproxen 250 Mg Tablet) 250 mg PO BID [facility] Last Admin: 01/25/21 08:56 Dose: 250 mg Documented by: CASSIE Nicotine (Nicotine 14 Mg Patch.Td24) 14 mg TRANSDERMA DAILY [facility] Last Admin: 01/25/21 08:56 Dose: 14 mg Documented by: CASSIE Phenobarbital (Phenobarbital 30 Mg Tablet) 30 mg PO BID [facility]; Protocol Stop: 01/26/21 21:01 Last Admin: 01/25/21 08:55 Dose: 30 mg Documented by: CASSIE Phenobarbital (Phenobarbital 30 Mg Tablet) 30 mg PO DAILY [facility]; Protocol Stop: 01/28/21 09:01 Sodium Chloride (0.9 % Sodium Chloride Flush 3 Ml Syringe) 3 ml IVFLUSH QSHIFT [facility] Last Admin: 01/25/21 08:55 Dose: 3 ml Documented by: CASSIE Thiamine HCl (Thiamine Hcl 100 Mg Tablet) 100 mg PO DAILY [facility] Last Admin: 01/25/21 08:56 Dose: 100 mg Documented by: CASSIE Labs CBC & Chem 7: 01/22/21 12:07 01/25/21 07:30 Labs: Laboratory Results - last 24 hr 01/25/21 01/25/21 06:02 07:30 Anion Gap 10 L 10 L Estim Creat Clear Calc 59.2 53.9 Estimated GFR > 60 54 Random Glucose 74 95 Calcium 7.6 L 7.3 L Assessment and Plan (1) Hypertension: Status: Acute (2) Metabolic alkalosis: Status: Acute (3) Acute hyponatremia: Status: Acute Assessment and Plan: 60-year-old male with a past medical history of alcohol abuse, COPD, depression presented to the hospital with a chief complaint of acute mental status change, unsteady gait #Severe Hyponatremia related to alcohol use, Lexapro and Naproxen--improved to 130, slow or stop IVF, will discus with Nephro - #Alcohol abuse and withdrawal with impending DTs continue phenobarb protocol, thiamine and folic acid According to friend Maria C wright [phone],? patient has been like this for several months he uses a walker to ambulate but he has been declining, not communicating, getting weak, poor by mouth intake , drinks 5-6 beer and fire balls daily for a long time Patient has poor insight due to alcohol use Abnormal CT head reviewed with Radiology likely extensive white matter disease progressing due to continued alcohol use , no active changes therefore will hold off on further imaging. HTN--BP is better, on Norvasc 5, will add Diovan 80 and Aldactone once Cesar/Renin level collected #Abnormal EKG Likely due to electrolyte abnormalities will replete and repeat, troponin elevated but flat patient has no chest pain hold off on further workup. #Hypokalemia--repleted and corrected #Anion gap aloholic ketoacidosis--resolved with fluid #Mild Justin likely pre renal, resolved with IVF #Hepatitis C outpatient follow-up with GI #COPD no acute exacerbation noted cont. prn DuoNeb treatment #Tobacco use disorder will place on nicotine patch, counseling done #History of anxiety depression previously patient was on psychiatric meds but? were discontinued during last hospitalization. #Mild protein calory malnutrition--ensure DVT prophylaxis with compression therapy Quality Stroke Does the patient have a stroke diagnosis?: No VTE Prior VTE?: No VTE Risk Level:: Medical - moderate - high VTE Device Contraindication: N/A - Device Ordered VTE Drug Contraindication: Treatment Not Indicated
[2021-01-25 12:00] VITALS: BP 183/103; PULSE 97; RESP 12; TEMP 37.2; O2SAT 100
[2021-01-25 13:03] VITALS: BP 180/94
--- NOTE | 2021-01-25 14:58 | P.CONNP_ITS ---
History of Present Illness Reason for Consult Consult date: 04/15/20 Chief Complaint Chief complaint: Hyponatremia/alcohol withdrawal Review of Systems Review of Systems no n/v no confusion no seizure Yes all other systems are reviewed and are negative [facility] Past Medical History Medical History Acute hypokalemia Acute hyponatremia Arachnoid cyst Cerebral microvascular disease COPD (chronic obstructive pulmonary disease) H/O ETOH abuse HCV (hepatitis C virus) Heart disease Hypertension Seizure disorder Family History Pertinent family history: Not aware of family history Surgical History Surgical History H/O left wrist surgery Social History Social History Household Members: None Household Members Other:: Brother Housing: Homeless Do you presently have visiting nurse or other home services: No Alcohol intake: current Alcohol intake frequency: 3 or more drinks per day Alcohol type: beer Patient Tobacco Use Status: Current everyday Tobacco user Tobacco use type: Cigarette Cigarette Packs Per Day: 0.5 Cigarettes Per Day: 10 Second Hand Smoke Exposure: No service: No Current occupational status: unemployed Meds Allergies Allergy/AdvReac Type Severity Reaction Status Date / Time acetaminophen [From PERCOCET] Allergy Mild Rash Verified 09/21/20 17:29 oxycodone [From PERCOCET] Allergy Mild Rash Verified 09/21/20 17:29 Penicillins [PENICILLINS] Allergy Mild Rash Verified 09/21/20 17:29 Active Medications: Current Medications Aspirin (Aspirin Enteric Coated 81 Mg Tablet.) 81 mg PO DAILY [facility] Last Admin: 01/25/21 08:56 Dose: 81 mg Documented by: Folic Acid (Folic Acid 1 Mg Tablet) 1 mg PO DAILY [facility] Last Admin: 01/25/21 08:55 Dose: 1 mg Documented by: Potassium Chloride/Sodium Chloride () 20 meq in 1,000 mls @ 75 mls/hr IVCONT .[id number] [facility] Last Admin: 01/25/21 06:43 Dose: Not Given Documented by: Medication (No Benzodiazepines) 1 each MISCELLANE DAILY [facility] Multivitamins/Vitamin C (Multivitamin Tablet) 1 tab PO DAILY [facility] Last Admin: 01/25/21 08:56 Dose: 1 tab Documented by: Naproxen (Naproxen 250 Mg Tablet) 250 mg PO BID [facility] Last Admin: 01/25/21 08:56 Dose: 250 mg Documented by: Nicotine (Nicotine 14 Mg Patch.Td24) 14 mg TRANSDERMA DAILY [facility] Last Admin: 01/25/21 08:56 Dose: 14 mg Documented by: Phenobarbital (Phenobarbital 30 Mg Tablet) 30 mg PO BID [facility]; Protocol Stop: 01/26/21 21:01 Last Admin: 01/25/21 08:55 Dose: 30 mg Documented by: Phenobarbital (Phenobarbital 30 Mg Tablet) 30 mg PO DAILY [facility]; Protocol Stop: 01/28/21 09:01 Sodium Chloride (0.9 % Sodium Chloride Flush 3 Ml Syringe) 3 ml IVFLUSH QSHIFT [facility] Last Admin: 01/25/21 08:55 Dose: 3 ml Documented by: Thiamine HCl (Thiamine Hcl 100 Mg Tablet) 100 mg PO DAILY [facility] Last Admin: 01/25/21 08:56 Dose: 100 mg Documented by: Home Medications Medication Instructions Recorded Confirmed Last Taken Type thiamine HCl (vitamin B1) 100 mg 1 tab PO DAILY 09/20/20 03/01/21 01/22/21 History tablet (Vitamin B-1) albuterol sulfate 90 mcg/actuation 2 puff PO Q4H PRN 12/16/20 03/01/21 01/22/21 History aerosol inhaler (ProAir HFA) multivitamin 1 tab PO DAILY 12/16/20 03/01/21 01/22/21 History aspirin 81 mg tablet,delayed 1 tab PO DAILY 01/22/21 03/01/21 01/22/21 History release folic acid 1 mg tablet 1 mg PO DAILY 03/01/21 03/01/21 Unknown History oxcarbazepine 150 mg tablet 150 mg PO TID 03/01/21 03/01/21 Unknown History Physical Exam Vital Signs: Last Vital Signs Temp 98.9 F 01/25/21 12:00 Pulse 97 01/25/21 12:00 Resp 12 01/25/21 12:00 BP 180/94 H 01/25/21 13:03 Pulse Ox 100 01/25/21 12:00 Body Mass Index 22.1 Const Other: General: AO X 3, no acute distress Resp: CTA bilateral CVS: S1,S2,RRR GI: +BS, NT, no distention Skin: No rash Neuro: motor grossly intact Psych: appropriate affect General: alert, awake and tired appearing Orientation/consciousness: patient oriented x3 HENMT Head: Yes normocephalic Eyes EOM: EOMs intact bilaterally Neck Neck: Yes supple Thyroid: Thyroid normal Resp Auscultation: clear to auscultation bilaterally Cardio Jugular venous distension: no JVD Rate: regular rate Rhythm: regular rhythm Heart sounds: S1 normal heart sound present and S2 normal heart sound present Peripheral pulses: Peripheral pulses 2+ throughout GI Inspection: Yes normal to inspection Palpation (GI): Soft to palpation Percussion: Yes normal to percussion Auscultation: normal bowel sounds Neuro General: patient oriented x3 and moves all extremities Cranial nerves: Yes CN's II-XII intact bilaterally Extrem General: Yes no pedal edema Results Lab Results Result Diagrams: 01/22/21 12:07 01/26/21 06:06 Lab results: Chemistry 01/22/21 01/22/21 01/23/21 17:18 21:04 05:43 Sodium 125 L 123 L 122 L Potassium 3.1 L D 2.8 L 2.5 L* Carbon Dioxide 31 H 31 H 31 H BUN 18 H 18 H 16 Creatinine 1.32 1.40 1.17 Calcium 8.0 L D 8.2 L 8.1 L Phosphorus 2.5 L 01/23/21 01/23/21 01/24/21 10:46 12:07 05:47 Sodium 123 L 124 L 127 L Potassium 4.1 D 4.1 3.7 Carbon Dioxide 29 28 30 H BUN 14 15 Creatinine 1.12 0.97 Calcium 8.0 L 7.4 L D Phosphorus 01/25/21 01/25/21 06:02 07:30 Sodium 130 L 130 L Potassium 3.9 3.7 Carbon Dioxide 30 H 29 BUN 19 H 20 H Creatinine 1.23 1.35 Calcium 7.6 L 7.3 L Phosphorus Urinalysis 01/24/21 01:23 Urine Color YELLOW Urine Appearance CLEAR Urine pH 6.5 Ur Specific [place] 1.015 Urine Protein 2+ H Urine Glucose (UA) 100 H Urine Ketones NEG Urine Blood NEG Urine Nitrite NEG Ur Leukocyte Esterase NEG Urine RBC 0-2 Urine WBC 0-2 Ur Squamous Epith Cells TRACE Urine Studies 01/24/21 01/24/21 01/24/21 01:23 01:23 01:24 Urine Osmolality 415 Urine Creatinine 74.99 Cancelled Assessment and Plan (1) Metabolic alkalosis: Status: Resolved (2) Acute hyponatremia: Status: Resolved (3) Alcoholism: Status: Acute Plan 60-year-old male with a past medical history of alcohol abuse, COPD, depression presented to the hospital with a chief complaint of acute mental status change, unsteady gait #Severe Hyponatremia related to alcohol use, Lexapro and Naproxen--improved to 130, slow or stop IVF, will discus with Nephro - #Alcohol abuse and withdrawal with impending DTs continue phenobarb protocol, thiamine and folic acid According to friend Maria C wright [phone],? patient has been like this for several months he uses a walker to ambulate but he has been declining, not communicating, getting weak, poor by mouth intake , drinks 5-6 beer and fire balls daily for a long time Patient has poor insight due to alcohol use Abnormal CT head reviewed with Radiology likely extensive white matter disease progressing due to continued alcohol use , no active changes therefore will hold off on further imaging. HTN--BP is better, on Norvasc 5, will add Diovan 80 and Aldactone once Cesar/Renin level collected #Abnormal EKG Likely due to electrolyte abnormalities will replete and repeat, troponin elevated but flat patient has no chest pain hold off on further workup. #Hypokalemia--repleted and corrected #Anion gap aloholic ketoacidosis--resolved with fluid #Mild Justin likely pre renal, resolved with IVF #Hepatitis C outpatient follow-up with GI #COPD no acute exacerbation noted cont. prn DuoNeb treatment #Tobacco use disorder will place on nicotine patch, counseling done #History of anxiety depression previously patient was on psychiatric meds but? were discontinued during last hospitalization. #Mild protein calory malnutrition--ensure DVT prophylaxis with compression therapy Procedures Date of Service Date of Service: 12/25/20
--- NOTE | 2021-01-25 14:59 | PM.PNNEP ---
Subjective Subjective Date of Service: 01/25/21 Interval history: Improving clinically and sodium up to 130 receiving normal saline with KCL at 100 cc/hr BP is HIGH TODAY Physical Exam Vital Signs: Vital Signs: Last Vital Signs Temp 98.9 F 01/25/21 12:00 Pulse 97 01/25/21 12:00 Resp 12 01/25/21 12:00 BP 180/94 H 01/25/21 13:03 Pulse Ox 100 01/25/21 12:00 Body Mass Index 22.1 Const: Other: General: AO X 3, no acute distress Resp: CTA bilateral CVS: S1,S2,RRR GI: +BS, NT, no distention Skin: No rash Neuro: motor grossly intact Psych: appropriate affect General: alert, awake and tired appearing Neck: Thyroid: Thyroid normal Resp: Auscultation: clear to auscultation bilaterally Cardio: Jugular venous distension: no JVD Rate: regular rate Rhythm: regular rhythm Heart sounds: S1 normal heart sound present and S2 normal heart sound present Peripheral pulses: Peripheral pulses 2+ throughout GI: Inspection: Yes normal to inspection Percussion: Yes normal to percussion Auscultation: normal bowel sounds Neuro: Cranial nerves: Yes CN's II-XII intact bilaterally Extrem: General: Yes no pedal edema Objective Data Labs CBC & Chem 7: 01/22/21 12:07 01/25/21 07:30 Labs: Laboratory Results - last 24 hr 01/25/21 01/25/21 06:02 07:30 Sodium 130 L 130 L Potassium 3.9 3.7 Chloride 94 L 95 L Carbon Dioxide 30 H 29 Anion Gap 10 L 10 L BUN 19 H 20 H Creatinine 1.23 1.35 Estim Creat Clear Calc 59.2 53.9 Estimated GFR > 60 54 Random Glucose 74 95 Calcium 7.6 L 7.3 L Procedures Date of Service Date of Service: 01/25/21 Assessment & Plan Assessment and plan (1) Hypertension: Status: Acute (2) Metabolic alkalosis: Status: Acute (3) Acute hyponatremia: Status: Acute Assessment and Plan: pT WITH hyponatremia, hypovolemic but also hypokalemic hypertension and metabolic alkalosis checking urine chloride checking ARR Creat is up to1.35 from normal despite vigorous IVF given this, would not start ARB but instead start CCB 10 amlodipine; replete K to 4 and check ARR, use labetolol supplementally for BP if remains elevated after adding amlodipine Time Spent With Patient Time: Total time spent is greater than 50% in coordination of care (as documented) at patient's floor/unit and/or counseling patient: Progress Note: Quality Stroke Does the patient have a stroke diagnosis?: No
[2021-01-25 15:14] VITALS: BP 177/103; PULSE 100; RESP 17; TEMP 37.2; O2SAT 99
[2021-01-25 20:00] VITALS: BP 170/90; PULSE 98; RESP 20; TEMP 36.6; O2SAT 98
[2021-01-26] VITALS (9 sets, daily range): BP systolic 153–190; BP diastolic 80–106; PULSE 86–96; RESP 18–20; TEMP 36.4–37.2; O2SAT 96–99
[2021-01-26 06:40] LABS: Anion Gap 10 (12-20); Blood Urea Nitrogen 20 mg/dL (9-16); Calcium 7.2 mg/dL (8.4-10.2); Carbon Dioxide 25 mmol/L (22-29); Chloride 100 mmol/L (96-108); Creatinine Clr Calc Pharmacy 66.2; Estimated Glomerular Filt Rate > 60; Glucose Random 99 mg/dL (60-115); Potassium 3.5 mmol/L (3.3-5.1); Sodium 131 mmol/L (135-145)
[2021-01-26] MEDS: NaPROXEN 250 MG TABLET PO (09:02)
[2021-01-26] MEDS: 0.9 % Sodium Chloride Flush 3 ML SYRINGE IVFLUSH ×3 (09:02→20:01)
[2021-01-26] MEDS: Aspirin Enteric Coated 81 MG TABLET.DR PO (09:03)
[2021-01-26] MEDS: Thiamine HCL 100 MG TABLET PO (09:03)
[2021-01-26] MEDS: PHENobarbitaL 30 MG TABLET PO ×2 (09:03→19:58)
[2021-01-26] MEDS: Folic Acid 1 MG TABLET PO (09:03)
[2021-01-26] MEDS: Multivitamin TABLET 1 TAB PO (09:03)
[2021-01-26] MEDS: Nicotine 14 MG PATCH.TD24 TRANSDERMA (09:04)
--- NOTE | 2021-01-26 09:52 | MHC.CM.PN ---
MALE 60 DX ETOH W/D Hyponatremia Home with [facility] resource information vs ETOH [place] facility. Transport via shuttle or BLS if TX to Facility.
--- NOTE | 2021-01-26 10:56 | P.PNIM_ITS ---
Subjective Subjective Date of Service: 01/26/21 Interval History: Improving clinically and sodium up to 131, no new issues Review of Systems no n/v no confusion no seizure Physical Exam 2 Vital Signs: Vital Signs: Last Vital Signs Temp 97.6 F 01/26/21 07:45 Pulse 96 01/26/21 10:03 Resp 20 01/26/21 07:45 BP 160/90 H 01/26/21 10:03 Pulse Ox 96 01/26/21 10:03 Body Mass Index 22.1 Const: Other: General: AO X 3, no acute distress Resp: CTA bilateral CVS: S1,S2,RRR GI: +BS, NT, no distention Skin: No rash Neuro: motor grossly intact Psych: appropriate affect Objective Data Active Medications Aspirin (Aspirin Enteric Coated 81 Mg Tablet.) 81 mg PO DAILY [facility] Last Admin: 01/26/21 09:03 Dose: 81 mg Documented by: CASSIE Folic Acid (Folic Acid 1 Mg Tablet) 1 mg PO DAILY [facility] Last Admin: 01/26/21 09:03 Dose: 1 mg Documented by: CASSIE Medication (No Benzodiazepines) 1 each MISCELLANE DAILY [facility] Multivitamins/Vitamin C (Multivitamin Tablet) 1 tab PO DAILY [facility] Last Admin: 01/26/21 09:03 Dose: 1 tab Documented by: CASSIE Naproxen (Naproxen 250 Mg Tablet) 250 mg PO BID [facility] Last Admin: 01/26/21 09:02 Dose: 250 mg Documented by: CASSIE Nicotine (Nicotine 14 Mg Patch.Td24) 14 mg TRANSDERMA DAILY [facility] Last Admin: 01/26/21 09:04 Dose: 14 mg Documented by: CASSIE Phenobarbital (Phenobarbital 30 Mg Tablet) 30 mg PO BID [facility]; Protocol Stop: 01/26/21 21:01 Last Admin: 01/26/21 09:03 Dose: 30 mg Documented by: CASSIE Phenobarbital (Phenobarbital 30 Mg Tablet) 30 mg PO DAILY [facility]; Protocol Stop: 01/28/21 09:01 Sodium Chloride (0.9 % Sodium Chloride Flush 3 Ml Syringe) [facility] Last Admin: 01/26/21 09:02 Dose: 3 ml Documented by: CASSIE Thiamine HCl (Thiamine Hcl 100 Mg Tablet) 100 mg PO DAILY [facility] Last Admin: 01/26/21 09:03 Dose: 100 mg Documented by: CASSIE Labs CBC & Chem 7: 01/22/21 12:07 01/26/21 06:06 Labs: Laboratory Results - last 24 hr 01/26/21 06:06 Anion Gap 10 L Estim Creat Clear Calc 66.2 Estimated GFR > 60 Random Glucose 99 Calcium 7.2 L Assessment and Plan (1) Acute hyponatremia: Status: Acute Assessment and Plan: 60-year-old male with a past medical history of alcohol abuse, COPD, depression presented to the hospital with a chief complaint of acute mental status change, unsteady gait #Severe Hyponatremia related to alcohol use, Lexapro and Naproxen--improved to 131. IVF stopped - #Alcohol abuse and withdrawal with impending DTs continue phenobarb protocol, thiamine and folic acid According to friend Maria C wright [phone],? patient has been like this for several months he uses a walker to ambulate but he has been declining, not communicating, getting weak, poor by mouth intake , drinks 5-6 beer and fire balls daily for a long time Patient has poor insight due to alcohol use Abnormal CT head reviewed with Radiology likely extensive white matter disease progressing due to continued alcohol use , no active changes therefore will hold off on further imaging. HTN--BP is still high, increase Norvasc to 10 #Abnormal EKG Likely due to electrolyte abnormalities will replete and repeat, troponin elevated but flat patient has no chest pain hold off on further workup. #Hypokalemia--repleted and corrected #Anion gap aloholic ketoacidosis--resolved with fluid #Mild Justin likely pre renal, resolved with IVF #Hepatitis C outpatient follow-up with GI #COPD no acute exacerbation noted cont. prn DuoNeb treatment #Tobacco use disorder will place on nicotine patch, counseling done #History of anxiety depression previously patient was on psychiatric meds but? were discontinued during last hospitalization. #Mild protein calory malnutrition--ensure DVT prophylaxis with compression therapy he has unsteady gait and PT is recommending STR Quality Stroke Does the patient have a stroke diagnosis?: No VTE Prior VTE?: No VTE Risk Level:: Medical - moderate - high VTE Device Contraindication: N/A - Device Ordered VTE Drug Contraindication: Treatment Not Indicated
--- NOTE | 2021-01-26 11:28 | MHC.RECOVRN ---
Met with pt to discuss medications for alcohol use disorder. Pt reports alcohol use since age 12, approx 5-6 24 oz beers daily. Pt reports ATS admissions, unclear how many. Denies other tx for AUD, including medication. Pt reports longest periods in recovery have been 1-2 weeks. Pt reports hx withdrawal seizures. Pt educated regarding medications available, pt is interested and reports ability to come to appts at the [facility]. Pt provided with recovery resources as well as information regarding all medications discussed. Pt denies questions or concerns. Discussed with Ana Maria Ewing APRN.
--- NOTE | 2021-01-26 11:50 | PM.PNNEP ---
Subjective Subjective Date of Service: 01/26/21 Interval history: Events noted; All recent data reviewed. BP still high Physical Exam Vital Signs: Vital Signs: Last Vital Signs Temp 97.6 F 01/26/21 11:44 Pulse 88 01/26/21 11:44 Resp 18 01/26/21 11:44 BP 182/106 H 01/26/21 11:44 Pulse Ox 99 01/26/21 11:44 Body Mass Index 22.1 Const: General: no acute distress Eyes: EOM: EOMs intact bilaterally Neck: Neck: Yes supple Resp: Auscultation: diminished lung sounds Cardio: Jugular venous distension: no JVD GI: Palpation (GI): Soft to palpation Neuro: General: moves all extremities Objective Data Labs CBC & Chem 7: 01/22/21 12:07 01/26/21 06:06 Labs: Laboratory Results - last 24 hr 01/26/21 06:06 Sodium 131 L Potassium 3.5 Chloride 100 Carbon Dioxide 25 Anion Gap 10 L BUN 20 H Creatinine 1.10 Estim Creat Clear Calc 66.2 Estimated GFR > 60 Random Glucose 99 Calcium 7.2 L Procedures Date of Service Date of Service: 01/26/21 Assessment & Plan Assessment and plan (1) Hypertension: Status: Acute Assessment and Plan: BP suboptimally controlled; Needs K over 4 Could change Amlodipine to Nifedipine 60 mg Will continue to W/U with renin, adelina, ARR Shall arrange office follow up when D/Antonio Time Spent With Patient Time: Total time spent is greater than 50% in coordination of care (as documented) at patient's floor/unit and/or counseling patient: Progress Note: Quality Stroke Does the patient have a stroke diagnosis?: No
--- NOTE | 2021-01-26 12:15 | MHC.SL.SWA ---
Speech Pathologist Impression: Risk of Aspiration Oral Phase Dysphagia Risk of Aspiration Due to: None Dysphasia Diet Status: Downgrade Liquid Consistency and Strategies for Safe Swallow: Liquid Intake Recommendation: Thin Liquid Intake Strategies: Small Sips Solid Food Consistency: Dietary Recommendations: Chopped/Advanced (NDD3) Additional Modifications to Solid Foods: Patient has top teeth in adequate condition for mastication. No bottom teeth. Patient reports difficulty chewing certain foods, such as leon, and requests sauces to ease mastication. No overt s/s of aspiration with solids and liquids when evaluated by [employer]ISH MAKER this morning. Due to oral phase dysphagia secondary to limited dentition, recommend CHOPPED/ADVANCED (NDD3) solids and THIN liquids, with pills WHOLE in PUREE or LIQUID per patient's tolerance/preference. Recommend avoid DRY and DIFFICULT TO CHEW solids. Patient is able to feed himself without any difficulties. Recommend standard aspiration precautions. RELISH MAKER to follow up 1x time to ensure tolerance. Oral Medication Intake: Whole with Puree Compensatory Strategies and Precautions to be Taken for Safe Swallow: Sitting Upright (90 deg) Small Bites and Sips Alternate Liquids/Solids Rate of Ingestion Change Avoid Specific Foods Supervision While Eating and Drinking for Safe Swallow: Intermittent Supervision Foods to Avoid: tough, dry, difficult to chew foods Swallowing Recommended Treatments: Compens. Strategy Educat. Recommendation for Speech: Inpatient Speech Therapy Comment: 1x follow up to ensure tolerance Gps Field Data Collector Clinican/Clinical Fellow: No Supervisory Statement: I have reviewed and agree with the student/clinical fellow's documentation: N/A Speech Language Pathologist: Gladys Velásquez M.A., CCC-[employer]ISH MAKER
[2021-01-26] MEDS: amLODIPine Besylate 5 MG TABLET PO (12:23)
--- NOTE | 2021-01-26 16:29 | PM.EVENT ---
Event Note Date of Service: 01/26/21 Event Note: Brief addiction note: Patient seen by recovery support RN and expressed interest in starting medication for alcohol use disorder. Denies any history of medications for alcohol use disorder would like to have his PCP continue to prescribe as opposed to seeing another provider for treatment. discussed medication, dosing, side effects and goals of treatment. Patient with no questions. reports he tahmina be discharging to his brother's home Plan: Naltrexone 25mg QD for 2 days then increase to 50mg daily. resources provided by RN
--- NOTE | 2021-01-26 18:18 | CONS_ITS ---
DATE OF SERVICE: 01/23/2021 REASON FOR CONSULTATION: I was called to see this patient to assist in the management of hyponatremia and hypokalemia. HISTORY OF PRESENT ILLNESS: Luan is a 60-year-old man with a history of hyponatremia and hyperkalemia, who was in the hospital back in September and also in December. He has a history of alcohol abuse and hepatitis C. He comes in yesterday again with hyponatremia and hypokalemia and he did have an alkalosis with a bicarb of 31. He states that he is not on any diuretics and he has not had any nausea, vomiting, or diarrhea. He has had a history of C difficile in December of 2020. Since admission, he has received normal saline with potassium chloride. There has been no significant improvement in the serum sodium or the potassium. He did have acute kidney injury and the BUN and creatinine have improved from 18 and 1.32 down to 16 and 1.17. He is nonoliguric. He has not had any urine studies including urine creatinine, sodium and osmolality, which were ordered last night. MEDICAL HISTORY: Ongoing medical problems include history of recurrent hyponatremia, hypokalemia, history of cerebral microvascular disease, cyst, COPD, history of alcohol abuse, hepatitis C, heart disease, and seizures. PAST SURGICAL HISTORY: Significant for left wrist surgery. SOCIAL HISTORY: Lives with his family. He smokes cigarettes and also consumes alcohol every day, 3 or more drinks, usually beer. ALLERGIES: TO ACETAMINOPHEN, OXYCODONE, PENICILLIN. HOME MEDICATIONS: Include folic acid, thiamine, albuterol, multivitamin, aspirin, fluoxetine, meloxicam, and oxcarbazepine. REVIEW OF SYSTEMS: No headache, nausea, vomiting. No abdominal pain, diarrhea, constipation. No shortness of breath. No chest pain. No fever. No rash. All other systems were reviewed. PHYSICAL EXAMINATION: GENERAL: This is a 60-year-old man who is comfortable, not in distress. Overall general hygiene is poor. NECK: Supple. No JVD. Mucosa is dry. LUNGS: Air entry equal. No rales. HEART: S1, S2 heard. No gallop or rub. ABDOMEN: Soft, nontender. Bowel sounds heard. NEURO: Alert, awake, oriented. No asterixis. EXTREMITIES: No dependent edema. No rash. No clubbing. VITAL SIGNS: Blood pressure was 200/120. The blood pressure has been elevated since admission with discharge blood pressure between 160 and 180 mmHg. LABORATORY DATA: Sodium 122, potassium 2.5, chloride 31, BUN 16, creatinine 1.17, calcium 8.1. No urine studies available this admission. Previous urine studies on December 16 showed a urine sodium of less than 20 with 3+ protein by dipstick. VBG showed a pH of 7.42 with a bicarb of 36, hemoglobin was 11.6, platelets 217. CT of the head done yesterday showed no acute intracranial pathology, chronic extensive periventricular white matter gliosis. Chest x-ray was unremarkable. PROBLEMS: 1. Chronic asymptomatic hyponatremia. 2. Hypokalemia. 3. Metabolic alkalosis. 4. Hypertension. 5. Hepatitis C. 6. History of chronic alcohol abuse. The etiology for hyponatremia needs to be determined. He was on SSRIs, which could be playing a role. He was also drinking excessive beer. Therefore, beer potomania should be considered. In the past, the cortisol level was normal and I do not think he has adrenal insufficiency, especially with hypertension. He does not have any urine studies like urine sodium or osmolality, which would guide us in determining the etiology. The combination of metabolic alkalosis, hypokalemia and hypertension raises the concern for hyperaldosteronism. My recommendation is to obtain a spot urine for sodium, creatinine osmolality and serum osmolality, which should be obtained MAYELA. Keep him on oral free water restriction to less than 1 L per 24 hours. I would continue with IV hydration with normal saline with potassium supplementation. Check the serum sodium every 2 hours and the rate of correction should be 0.5 mmol/L/hour and not exceed more than 8 mmol/24 hours. We can replace potassium orally. Check serum aldosterone and plasma renin activity. Once the test is done, then we can give him a trial of spironolactone and watch his blood pressure. We will follow him along with the team. Jr Reyez MD BPA/MODL / [id number]
[2021-01-27] VITALS (8 sets, daily range): BP systolic 158–190; BP diastolic 76–100; PULSE 75–102; RESP 16–20; TEMP 36.3–37.1; O2SAT 96–100
[2021-01-27] MEDS: Acetaminophen 325 MG TABLET 650 MG PO (02:27)
--- NOTE | 2021-01-27 02:37 | MHC.PIE ---
p; pt c/o h/a 10/21. pt asking for Tylenol i;dr yepez notified; new order tylenol q6 prn e; will cont to monitor
[2021-01-27] MEDS: Folic Acid 1 MG TABLET PO (10:04)
[2021-01-27] MEDS: Naltrexone HCl 50 MG TABLET 25 MG PO (10:04)
[2021-01-27] MEDS: amLODIPine Besylate 10 MG TABLET PO (10:04)
[2021-01-27] MEDS: 0.9 % Sodium Chloride Flush 3 ML SYRINGE IVFLUSH ×3 (10:04→22:32)
[2021-01-27] MEDS: Thiamine HCL 100 MG TABLET PO (10:04)
[2021-01-27] MEDS: Metoprolol Succinate ER 25 MG TAB.ER.24H PO (10:04)
[2021-01-27] MEDS: PHENobarbitaL 30 MG TABLET PO (10:05)
[2021-01-27] MEDS: Aspirin Enteric Coated 81 MG TABLET.DR PO (10:05)
[2021-01-27] MEDS: Multivitamin TABLET 1 TAB PO (10:05)
[2021-01-27] MEDS: Nicotine 14 MG PATCH.TD24 TRANSDERMA (10:05)
--- NOTE | 2021-01-27 10:10 | MHC.SL.SWA ---
Speech Pathologist Impression: Risk of Aspiration Oral Phase Dysphagia Risk of Aspiration Due to: None Dysphasia Diet Status: No Change Liquid Consistency and Strategies for Safe Swallow: Liquid Intake Recommendation: Thin Liquid Intake Strategies: Small Sips Solid Food Consistency: Dietary Recommendations: Chopped/Advanced (NDD3) Additional Modifications to Solid Foods:Patient has top teeth in adequate condition for mastication. No bottom teeth. Patient reports difficulty chewing certain foods, such as leon, and requests sauces to ease mastication. No overt s/s of aspiration with solids and liquids. Patient appears to be on appropriate diet textures. Due to oral phase dysphagia secondary to limited dentition, continue CHOPPED/ADVANCED (NDD3) solids and THIN liquids, with pills WHOLE in PUREE or LIQUID per patient's tolerance/preference. Recommend avoid DRY and DIFFICULT TO CHEW solids. Patient is able to feed himself without any difficulties. Recommend standard aspiration precautions. Further ST intervention is no longer warranted. Please re-refer if there are any changes or further concern. Oral Medication Intake: Whole with Puree Compensatory Strategies and Precautions to be Taken for Safe Swallow: Sitting Upright (90 deg) Small Bites and Sips Alternate Liquids/Solids Rate of Ingestion Change Avoid Specific Foods Supervision While Eating and Drinking for Safe Swallow: Intermittent Supervision Foods to Avoid: tough, dry, difficult to chew foods Swallowing Recommended Treatments: Compens. Strategy Educat. Recommendation for Speech: D/C Ux Design Lead Clinican/Clinical Fellow: Yes: Summer Boland Supervisory Statement: I have reviewed and agree with the student/clinical fellow's documentation: N/A Speech Language Pathologist: Gladys Velásquez M.A., CCC-GEOSCIENCE SPECIALIST
--- NOTE | 2021-01-27 11:02 | PM.PNNEP ---
Subjective Subjective Date of Service: 01/27/21 Interval history: Events noted; All recent data reviewed. BP still high Physical Exam Vital Signs: Vital Signs: Last Vital Signs Temp 97.4 F 01/27/21 07:28 Pulse 79 01/27/21 10:04 Resp 18 01/27/21 07:28 BP 190/100 H 01/27/21 10:04 Pulse Ox 100 01/27/21 07:28 Body Mass Index 22.1 Const: General: no acute distress HENMT: Head: Yes normocephalic Eyes: EOM: EOMs intact bilaterally Neck: Neck: Yes supple Resp: Auscultation: diminished lung sounds Cardio: Rate: regular rate GI: Palpation (GI): Soft to palpation Neuro: General: moves all extremities Objective Data Labs CBC & Chem 7: 01/22/21 12:07 01/26/21 06:06 Procedures Date of Service Date of Service: 01/27/21 Assessment & Plan Assessment and plan (1) Hypertension: Status: Acute Assessment and Plan: BP suboptimally controlled; Needs K over 4 Could change Amlodipine to Nifedipine 60 mg( could be maximized ) Good to avoid polypharmacy Will continue to W/U with renin, adelina, ARR Shall arrange office follow up when D/Antonio Time Spent With Patient Time: Total time spent is greater than 50% in coordination of care (as documented) at patient's floor/unit and/or counseling patient: Progress Note: Quality Stroke Does the patient have a stroke diagnosis?: No
--- NOTE | 2021-01-27 14:49 | HO.PM.IMPN ---
Subjective Subjective Date of Service: 01/27/21 Interval History: Being followed for alcohol withdrawal and hyponatremia, this morning awake alert offers no acute complaints. Review of Systems General no headache, no dizziness, no fever chills. CVS no chest pain, no palpitation. Respiratory no cough, no sob. Gastrointestinal no nausea no vomiting, no abdominal pain Review of Systems: Yes all other systems are reviewed and are negative Physical Exam Vital Signs: Vital Signs: Last Vital Signs Temp 97.6 F 01/27/21 11:43 Pulse 84 01/27/21 11:43 Resp 20 01/27/21 11:43 BP 158/76 H 01/27/21 11:43 Pulse Ox 98 01/27/21 11:43 Body Mass Index 22.1 General: Awake, alert x3, no acute distress Neck no JVD Resp:? CTA bilateral CVS: S1,S2,RRR GI: Nontender, bowel sounds audible Skin: No rash Neuro:? motor grossly intact Psych: appropriate affect Objective Data Active Medications Acetaminophen (Acetaminophen 325 Mg Tablet) 650 mg PO Q6H PRN PRN Reason: Pain, Mild (Pain Scale 1-3) Last Admin: 01/27/21 02:27 Dose: 650 mg Documented by: ZEYNEP Amlodipine Besylate (Amlodipine Besylate 10 Mg Tablet) 10 mg PO DAILY [facility]; Protocol Last Admin: 01/27/21 10:04 Dose: 10 mg Documented by: ANDREWS Aspirin (Aspirin Enteric Coated 81 Mg Tablet.) 81 mg PO DAILY [facility] Last Admin: 01/27/21 10:05 Dose: 81 mg Documented by: ANDREWS Folic Acid (Folic Acid 1 Mg Tablet) 1 mg PO DAILY [facility] Last Admin: 01/27/21 10:04 Dose: 1 mg Documented by: ANDREWS Medication (No Benzodiazepines) 1 each MISCELLANE DAILY [facility] Metoprolol Succinate (Metoprolol Succinate Er 25 Mg Tab.Er.24h) 25 mg PO DAILY [facility]; Protocol Last Admin: 01/27/21 10:04 Dose: 25 mg Documented by: ANDREWS Multivitamins/Vitamin C (Multivitamin Tablet) 1 tab PO DAILY [facility] Last Admin: 01/27/21 10:05 Dose: 1 tab Documented by: ANDREWS Naltrexone HCl (Naltrexone Hcl 50 Mg Tablet) 25 mg PO DAILY [facility] Last Admin: 01/27/21 10:04 Dose: 25 mg Documented by: ANDREWS Nicotine (Nicotine 14 Mg Patch.Td24) 14 mg TRANSDERMA DAILY [facility] Last Admin: 01/27/21 10:05 Dose: 14 mg Documented by: ANDREWS Phenobarbital (Phenobarbital 30 Mg Tablet) 30 mg PO DAILY [facility]; Protocol Stop: 01/28/21 09:01 Last Admin: 01/27/21 10:05 Dose: 30 mg Documented by: ANDREWS Sodium Chloride (0.9 % Sodium Chloride Flush 3 Ml Syringe) 3 ml IVFLUSH QSHIFT [facility] Last Admin: 01/27/21 10:04 Dose: 3 ml Documented by: ANDREWS Thiamine HCl (Thiamine Hcl 100 Mg Tablet) 100 mg PO DAILY [facility] Last Admin: 01/27/21 10:04 Dose: 100 mg Documented by: ANDREWS Labs CBC & Chem 7: 01/22/21 12:07 01/26/21 06:06 Assessment and Plan (1) Hypertension: Status: Acute (2) Acute hyponatremia: Status: Acute (3) Acute hypokalemia: Status: Acute (4) Multiple falls: Status: Acute (5) Alcoholism: Status: Acute Assessment and Plan: 60-year-old male with a past medical history of alcohol abuse, COPD, depression presented to the hospital with a chief complaint of acute mental status change, unsteady gait #Severe Hyponatremia related to alcohol use, Lexapro and Naproxen--improved to 131. Strongly recommend to abstain from alcohol . Lexapro discontinued - #Alcohol abuse and withdrawal with impending DTs continue phenobarb protocol, thiamine and folic acid spoke with patient's friend Maria C srivastavaby [phone],? patient was living with her and has been drinking 5-6 bear daily and fire balls for a long time, she feels she is unable to take care of him at home Due to declining health with generalized weakness decreased by mouth intake Patient has poor insight due to alcohol use Abnormal CT head reviewed with Radiology likely extensive white matter disease progressing due to continued alcohol use , no active changes therefore will hold off on further imaging. Patient has a brother Ehsan Mitchell , requested friend to ask brother to call us to arrange for safe discharge. HTN--BP remains elevated despite increasing dose of Norvasc to 10 mg will add low-dose metoprolol follow BP closely #Abnormal EKG likely due to electrolyte abnormalities. Troponin elevated but flat has no chest pain no further workup warranted at this time #Hypokalemia--repleted and corrected #Anion gap aloholic ketoacidosis--resolved with fluid #Mild Justin likely pre renal, resolved with IVF #Hepatitis C outpatient follow-up with GI #COPD no acute exacerbation noted cont. prn DuoNeb treatment #Tobacco use disorder on nicotine patch, counseling done #History of anxiety depression previously patient was on psychiatric meds but? were discontinued during last hospitalization. #Mild protein calorie malnutrition-cont. ensure DVT prophylaxis with compression therapy unsteady gait / PT is recommending STR recommend out of bed to chair and ambulation t.i.d. Quality Stroke Does the patient have a stroke diagnosis?: No VTE Prior VTE?: No VTE Risk Level:: Medical - moderate - high VTE Device Contraindication: N/A - Device Ordered VTE Drug Contraindication: Treatment Not Indicated
[2021-01-28] VITALS (7 sets, daily range): BP systolic 142–164; BP diastolic 74–89; PULSE 75–90; RESP 15–20; TEMP 36.4–37.1; O2SAT 92–99
--- NOTE | 2021-01-28 09:56 | PM.PNNEP ---
Subjective Subjective Date of Service: 01/28/21 Interval history: Events noted. All recent data reviewed Physical Exam Vital Signs: Vital Signs: Last Vital Signs Temp 98.6 F 01/28/21 07:25 Pulse 84 01/28/21 07:25 Resp 20 01/28/21 07:25 BP 162/75 H 01/28/21 07:25 Pulse Ox 99 01/28/21 07:25 Body Mass Index 22.1 Const: General: no acute distress Orientation/consciousness: patient oriented x3 HENMT: Head: Yes normocephalic Eyes: EOM: EOMs intact bilaterally Neck: Neck: Yes supple Resp: Auscultation: diminished lung sounds Cardio: Rate: regular rate GI: Palpation (GI): Soft to palpation Neuro: General: patient oriented x3 and moves all extremities Objective Data Labs CBC & Chem 7: 01/22/21 12:07 01/26/21 06:06 Procedures Date of Service Date of Service: 01/28/21 Assessment & Plan Assessment and plan (1) Hypertension: Status: Acute Assessment and Plan: BP suboptimally controlled; Needs K over 4 Could change Amlodipine to Nifedipine 30 mg( could be maximized if needed) Good to avoid polypharmacy Will continue to W/U with renin, adelina, ARR Shall arrange office follow up when D/Antonio Time Spent With Patient Time: Total time spent is greater than 50% in coordination of care (as documented) at patient's floor/unit and/or counseling patient: Progress Note: Quality Stroke Does the patient have a stroke diagnosis?: No
[2021-01-28] MEDS: Nicotine 14 MG PATCH.TD24 TRANSDERMA (10:05)
[2021-01-28] MEDS: 0.9 % Sodium Chloride Flush 3 ML SYRINGE IVFLUSH (10:05)
[2021-01-28] MEDS: amLODIPine Besylate 10 MG TABLET PO (10:06)
[2021-01-28] MEDS: Metoprolol Succinate ER 25 MG TAB.ER.24H PO (10:06)
[2021-01-28] MEDS: Thiamine HCL 100 MG TABLET PO (10:06)
[2021-01-28] MEDS: Multivitamin TABLET 1 TAB PO (10:06)
[2021-01-28] MEDS: PHENobarbitaL 30 MG TABLET PO (10:06)
[2021-01-28] MEDS: Aspirin Enteric Coated 81 MG TABLET.DR PO (10:06)
[2021-01-28] MEDS: Naltrexone HCl 50 MG TABLET 25 MG PO (10:06)
[2021-01-28] MEDS: Folic Acid 1 MG TABLET PO (10:06)
--- NOTE | 2021-01-28 15:21 | P.PNIM_ITS ---
Subjective Subjective Date of Service: 01/28/21 Interval History: Being followed for alcohol withdrawal and hyponatremia, this morning awake alert offers no acute complaints, ambulated with walker in the room without difficulty, denies pain , no shortness of breath. Review of Systems General no headache, no dizziness, no fever chills.? CVS no chest pain, no palpitation.? Respiratory no cough, no sob.? Gastrointestinal no nausea no vomiting, no abdominal pain Review of Systems: Yes all other systems are reviewed and are negative Physical Exam Vital Signs: Vital Signs: Last Vital Signs Temp 98.8 F 01/28/21 12:00 Pulse 81 01/28/21 12:00 Resp 20 01/28/21 12:00 BP 142/74 H 01/28/21 12:00 Pulse Ox 96 01/28/21 12:00 Body Mass Index 22.1 General:? Awake, alert x3, no acute distress Neck no JVD Resp:? CTA bilateral CVS: S1,S2,RRR GI:? Nontender, bowel sounds audible Skin: No rash Neuro:? motor grossly intact Psych: appropriate affect Objective Data Active Medications Acetaminophen (Acetaminophen 325 Mg Tablet) 650 mg PO Q6H PRN PRN Reason: Pain, Mild (Pain Scale 1-3) Last Admin: 01/27/21 02:27 Dose: 650 mg Documented by: ZEYNEP Amlodipine Besylate (Amlodipine Besylate 10 Mg Tablet) 10 mg PO DAILY [facility]; Protocol Last Admin: 01/28/21 10:06 Dose: 10 mg Documented by: MUSTAPHA Aspirin (Aspirin Enteric Coated 81 Mg Tablet.) 81 mg PO DAILY [facility] Last Admin: 01/28/21 10:06 Dose: 81 mg Documented by: MUSTAPHA Folic Acid (Folic Acid 1 Mg Tablet) 1 mg PO DAILY [facility] Last Admin: 01/28/21 10:06 Dose: 1 mg Documented by: MUSTAPHA Medication (No Benzodiazepines) 1 each MISCELLANE DAILY [facility] Metoprolol Succinate (Metoprolol Succinate Er 25 Mg Tab.Er.24h) 25 mg PO DAILY [facility]; Protocol Last Admin: 01/28/21 10:06 Dose: 25 mg Documented by: MUSTAPHA Multivitamins/Vitamin C (Multivitamin Tablet) 1 tab PO DAILY [facility] Last Admin: 01/28/21 10:06 Dose: 1 tab Documented by: MUSTAPHA Naltrexone HCl (Naltrexone Hcl 50 Mg Tablet) 25 mg PO DAILY [facility] Last Admin: 01/28/21 10:06 Dose: 25 mg Documented by: MUSTAPHA Nicotine (Nicotine 14 Mg Patch.Td24) 14 mg TRANSDERMA DAILY [facility] Last Admin: 01/28/21 10:05 Dose: 14 mg Documented by: MUSTAPHA Sodium Chloride (0.9 % Sodium Chloride Flush 3 Ml Syringe) 3 ml IVFLUSH QSHIFT [facility] Last Admin: 01/28/21 10:05 Dose: 3 ml Documented by: MUSTAPHA Thiamine HCl (Thiamine Hcl 100 Mg Tablet) 100 mg PO DAILY [facility] Last Admin: 01/28/21 10:06 Dose: 100 mg Documented by: MUSTAPHA Labs CBC & Chem 7: 01/22/21 12:07 01/26/21 06:06 Assessment and Plan (1) Metabolic alkalosis: Status: Acute (2) Hypertension: Status: Acute (3) Acute hyponatremia: Status: Acute (4) Acute hypokalemia: Status: Acute (5) Multiple falls: Status: Acute (6) Alcoholism: Status: Acute Assessment and Plan: 60-year-old male with a past medical history of alcohol abuse, COPD, depression presented to the hospital with a chief complaint of acute mental status change, unsteady gait #Severe Hyponatremia related to alcohol use, Lexapro and Naproxen--improved to 131. Strongly recommend to abstain from alcohol . Lexapro discontinued - #Alcohol abuse and withdrawal with impending DTs continue phenobarb protocol, thiamine and folic acid Abnormal CT head reviewed with Radiology likely extensive white matter disease progressing due to continued alcohol use , no active changes therefore will hold off on further imaging. spoke with patient's friend Maria C kyle [phone],? patient was living with her and has been drinking 5-6 bear daily and fire balls for a long time, she feels she is unable to take care of him at home Previously patient was living with his brother and also by himself Patient has a brother Ehsan Mitchell , requested friend to ask brother to call us to arrange for safe discharge. HTN--BP remains elevated despite increasing dose of Norvasc to 10 mg and with addition of metoprolol 25 mg daily will further adjust dose of metoprolol and follow BP #Abnormal EKG likely due to electrolyte abnormalities.? Troponin elevated but flat has no chest pain no further workup warranted at this time #Hypokalemia--repleted and corrected #Anion gap aloholic ketoacidosis--resolved with fluid #Mild Justin likely pre renal, resolved with IVF #Hepatitis C outpatient follow-up with GI #COPD no acute exacerbation noted cont. prn DuoNeb treatment #Tobacco use disorder? on nicotine patch, counseling done #History of anxiety depression previously patient was on psychiatric meds but? were discontinued during last hospitalization. #Mild protein calorie malnutrition-cont. ensure DVT prophylaxis with compression therapy unsteady gait patient is ambulating with a walker, patient refused physical therapy today will encourage to participate in PT Quality Stroke Does the patient have a stroke diagnosis?: No VTE Prior VTE?: No VTE Risk Level:: Medical - moderate - high VTE Device Contraindication: N/A - Device Ordered VTE Drug Contraindication: Treatment Not Indicated
[2021-01-29 03:03] VITALS: BP 168/94; PULSE 74; RESP 18; TEMP 36.4; O2SAT 93
[2021-01-29] MEDS: Acetaminophen 325 MG TABLET 650 MG PO (03:40)
[2021-01-29 07:43] VITALS: BP 160/82; PULSE 68; RESP 19; TEMP 36.9; O2SAT 96
[2021-01-29] MEDS: Nicotine 14 MG PATCH.TD24 TRANSDERMA (07:47)
[2021-01-29 07:48] VITALS: BP 162/80; PULSE 71
[2021-01-29] MEDS: Naltrexone HCl 50 MG TABLET 25 MG PO (07:48)
[2021-01-29] MEDS: Multivitamin TABLET 1 TAB PO (07:48)
[2021-01-29] MEDS: amLODIPine Besylate 10 MG TABLET PO (07:48)
[2021-01-29 07:49] VITALS: BP 162/80; PULSE 71
[2021-01-29] MEDS: Aspirin Enteric Coated 81 MG TABLET.DR PO (07:49)
[2021-01-29] MEDS: Metoprolol Succinate ER 25 MG TAB.ER.24H PO (07:49)
[2021-01-29] MEDS: Thiamine HCL 100 MG TABLET PO (07:49)
[2021-01-29] MEDS: Folic Acid 1 MG TABLET PO (07:49)
--- NOTE | 2021-01-29 09:05 | MHC.CM.PN ---
Addendum entered by Charley Rosenberg 01/29/21 09:22: Return call from Maria C Julian. [facility] can not take the patient in. Per Ulises, Brother Ehsan will be calling re DP today. Original Note: Spoke with Patient re dc plan. He requested a ride to his friend Shannan jimenes. I told the pt that we need to confirm this DC plan with Kelley. Kartik does not have a phone. The Pt requested that his GF be called to go to Shannan jimenes and speak with him re DP. Waiting for return call from HCP/GF Maria C Julian.
[2021-01-29 10:08] VITALS: BP 162/80; PULSE 71
[2021-01-29 11:48] VITALS: BP 152/81; PULSE 74; RESP 18; TEMP 36.8; O2SAT 98
--- NOTE | 2021-01-29 12:13 | PM.PNNEP ---
Subjective Subjective Date of Service: 01/29/21 Interval history: Seen AM. Events noted. All recent data reviewed Physical Exam Vital Signs: Vital Signs: Last Vital Signs Temp 98.2 F 01/29/21 11:48 Pulse 74 01/29/21 11:48 Resp 18 01/29/21 11:48 BP 152/81 H 01/29/21 11:48 Pulse Ox 98 01/29/21 11:48 Body Mass Index 22.1 Const: General: no acute distress Eyes: EOM: EOMs intact bilaterally Neck: Neck: Yes supple Resp: Auscultation: diminished lung sounds Cardio: Rate: regular rate GI: Palpation (GI): Soft to palpation Neuro: General: moves all extremities Objective Data Labs CBC & Chem 7: 01/22/21 12:07 01/26/21 06:06 Procedures Date of Service Date of Service: 01/29/21 Assessment & Plan Assessment and plan (1) Acute hyponatremia: Status: Acute Assessment and Plan: BP suboptimally controlled; Needs K over 4 Could change Amlodipine to Nifedipine 30 mg( could be maximized if needed) Good to avoid polypharmacy Will continue to W/U with renin, adelina, ARR Shall arrange office follow up when D/Antonio Time Spent With Patient Time: Total time spent is greater than 50% in coordination of care (as documented) at patient's floor/unit and/or counseling patient: Progress Note: Quality Stroke Does the patient have a stroke diagnosis?: No
--- NOTE | 2021-01-29 14:46 | MHC.CM.PN ---
Addendum entered by Charley Rosenberg 01/29/21 15:46: MD ordered VNA services. Pt preferences obtained, referral made Original Note: Patient discharged to home. No services have been ordered. A cab voucher was provided. Alternative address requested by the patient.
--- NOTE | 2021-01-29 14:59 | P.DS_ITS ---
DS: Providers Provider Date of Service: 01/29/21 Date of admission: 01/22/21 16:00 Primary care physician: Unknown Physician Consults: 01/22/21 16:23 Consult to Nephrology Routine Consulting Provider: Jr Reyez Reason for consultation: electrolye abnormality Has provider been notified: No 01/23/21 08:55 Consult to Care Team Routine Comment: Reason for consultation: alcohol dependence DS: Diagnosis Discharge Diagnosis (1) Acute hyponatremia: Status: Acute DS: Summary Hospital Course Hospital Course: Chief Complaint: Alcohol withdrawal/fall 60-year-old gentleman with past medical history significant for alcohol abuse, COPD, depression, hepatitis C recently discharged from [facility] 12/24/[facility], after being admitted for hyponatremia and alcohol withdrawal, was brought in by EMS since earlier this morning EMS and police department was called to his property since the landlord wanted the patient removed from his property, at that time patient was alert and walking therefore EMS left but they were called back to bring the patient home since he was showing signs of alcohol intoxication and unsteady gait, on arrival to the emergency room patient admitted that he passed out, his electrolytes were abnormal with a low sodium of 126 potassium, with an anion gap of 26 and a creatinine of 1.4 patient treated in the emergency room with 1 L of normal saline, 40 mEq of potassium and is now being admitted for electrolyte abnormalities, he also noted to have T-wave inversion in anterior lateral leads he denies any chest pain, he denies palpitation he denies any nausea vomiting or diarrhea, he feels hungry and asking for food, he admits to drinking 5 beer per week his last drink was 2 days ago [place] a he smokes 1 pack of cigarette a day. Hospital course 60-year-old male with a past medical history of alcohol abuse, COPD, depression presented to the hospital with a chief complaint of acute mental status change, unsteady gait and found to have multiple medical issues as below Severe Hyponatremia related to alcohol use, Lexapro and Naproxen, patient treated with IV fluid Lexapro and Naprosyn were discontinued patient sodium improved to 131, he has been strongly recommended to abstain from alcohol and to avoid NSAID and Lexapro has been discontinued, he has been recommended to have close outpatient follow-up with PCP. Alcohol abuse and withdrawal with impending DTs patient was treated with phenobarb protocol thiamine and folic acid patient CT scan of head showed progression of white matter disease likely due to continued alcohol use there was no acute change noted, spoke with patient's friend Maria C wright [phone], according to her patient has been living with her and has been drinking 5- 6 beer and fire ball daily patient seen by care team and has been given referrals for outpatient recovery resource. Patient noted to have multiple electrolyte abnormalities including hypokalemia kalemia, anion a cap acidosis all related to poor nutrition and alcohol abuse treated with IV fluids all of the [place] abnormalities of resolved. Patient noted to have elevated blood pressure therefore has been started on metoprolol XL to 50 mg daily recommend to have close outpatient follow-up with primary care physician he also noted to have abnormal EKG due to electrolyte abnormalities troponin were flat patient had no chest pain therefore no further cardiac workup was obtained. In regard to tobacco use disorder he has been placed on nicotine patch and recommended to abstain from alcohol For history of anxiety depression previously patient was on psychiatric meds but?were discontinued during last hospitalization. Generalized weakness patient was evaluated by PT and they recommended home with physical therapy versus rehab patient chose to go home, therefore he will be discharged home with VNA and recommended to use wheeled walker. Time Spent with Patient Time attestation: Total time spent providing and/or coordinating discharge services: Discharge coordination time: Greater than 30 minutes Quality: Stroke Does the patient have a stroke diagnosis?: No Physical Exam Vital Signs: Vital Signs: Last Vital Signs Temp 98.2 F 01/29/21 11:48 Pulse 74 01/29/21 11:48 Resp 18 01/29/21 11:48 BP 152/81 H 01/29/21 11:48 Pulse Ox 98 01/29/21 11:48 Body Mass Index 22.1 General:? Awake, alert x3, no acute distress Neck no JVD Resp:? CTA bilateral CVS: S1,S2,RRR GI:? Nontender, bowel sounds audible Skin: No rash Neuro:? motor grossly intact Psych: appropriate affect DS: Data Data Completed and Pending Completed studies during hospitalization [Text1]: Procedures Detoxification Services for Substance Abuse Treatment (09/20/20) Discharge Plan Discharge Patient Disposition: Home Health Service Discharge Diagnosis: Severe hyponatremia Alcohol abuse and withdrawal with impending DTs Hypokalemia Anion gap acidosis Abnormal EKG Referrals: Sabrina Ansari MD [Physician] - 1 Week (Your doctor's office should call you to schedule a follow up appointment. ) Discharge Medications: New nicotine 14 mg/24 hr Patch 24 Hour 14 mg transdermal DAILY Qty: 30 RF: 0 metoprolol succinate 50 mg Tablet Extended Release 24 Hr 50 mg PO DAILY Qty: 30 RF: 0 Continued thiamine HCl (vitamin B1) [Vitamin B-1] 100 mg tablet 1 tab PO DAILY RF: 0 folic acid 1 mg tablet 1 tab PO DAILY RF: 0 multivitamin Tablet 1 tab PO DAILY RF: 0 albuterol sulfate [ProAir HFA] 90 mcg/actuation HFA aerosol inhaler 2 puff PO Q4H PRN (Reason: Shortness Of Breath) RF: 0 aspirin 81 mg tablet,delayed release (DR/EC) 1 tab PO DAILY RF: 0 Discontinued oxcarbazepine 150 mg tablet 1 tab PO TID RF: 0 meloxicam 7.5 mg tablet 1 tab PO BID RF: 0 fluoxetine 20 mg capsule 2 cap PO QAM RF: 0 Discharge Orders: Discharge Order (Routine); Ordered 01/29/21 Ordered By: Dl Armstrong Diet: advance to usual diet Activity on Discharge: As tolerated Stand Alone Forms: Patient Portal Discharge page Care Plan Goals: Strong recommendation to abstain from alcohol take blood pressure medication and follow-up with primary care physician Health Concerns: Alcoholism is strongly recommend to follow up with outpatient recovery resources as discussed with care team and to use wheeled walker and physical therapy at home Plan of Treatment: Outpatient follow-up with primary care physician in 1-2 weeks, outpatient follow-up with recovery resources for alcohol withdrawal. Assessment: As above
[2021-01-30 09:46] LABS: Renin 38.15 ng/mL/h (0.25-5.82)
[2021-02-04 05:51] LABS: Plasma Renin Activity 30.68 ng/mL/h (0.25-5.82)
== END 2021-01-29 16:30 | disposition home health service (06) | DRG 426 ==
LOC: HO.ED 14:58 → HO.EDOVER 16:19 → HO.IMC 01-23 17:09
PROVIDERS: Hospitalist; Internal Medicine; Internal Medicine Hypertension Specialist; Admitting Provider Hospitalist; Emergency Provider Emergency Medicine; PCP Student in an Organized Health Care Education/Training Program; Visit Provider Hospitalist
DX: E87.1 Hypo-osmolality and hyponatremia (principal); N17.9 Acute kidney failure, unspecified; E87.3 Alkalosis; E44.1 Mild protein-calorie malnutrition; E87.6 Hypokalemia; Z20.822 Contact with and (suspected) exposure to COVID-19; B19.20 Unspecified viral hepatitis C without hepatic coma; F41.9 Anxiety disorder, unspecified; F32.A Depression, unspecified; J44.9 Chronic obstructive pulmonary disease, unspecified; F17.210 Nicotine dependence, cigarettes, uncomplicated; Z71.6 Tobacco abuse counseling; R29.6 Repeated falls; F10.239 Alcohol dependence with withdrawal, unspecified; I10 Essential (primary) hypertension; Z68.22 Body mass index [BMI] 22.0-22.9, adult; Z91.81 History of falling; Z88.0 Allergy status to penicillin; Z88.5 Allergy status to narcotic agent; Z88.6 Allergy status to analgesic agent; Z79.82 Long term (current) use of aspirin; Z79.899 Other long term (current) drug therapy
CPT/HCPCS: 36415; 70450; 80048; 80051; 80076; 80307; 81001; 81003; 82077; 82088; 82436; 82803; 83735; 83930; 83935; 84100; 84244; 84300; 84484; 85025; 85610; 87635; 92610; 93005; 96361; 96365; 97116; 97162; 99285; J2560; J3475

== ENCOUNTER 2021-03-01 11:29 | Inpatient (IN) | payer MEDICAID, SELFPAY ==
[2021-03-01] VITALS (13 sets, daily range): BP systolic 167–209; BP diastolic 82–118; PULSE 77–93; RESP 16–22; TEMP 34.8–37.1; O2SAT 94–99; BMI 20.2
--- NOTE | ~2021-03-01 | XR_ITS ---
EXAMINATION: BILATERAL FEMUR. CLINICAL INFORMATION: Bruising the bilateral posterior thighs. COMPARISON: None TECHNIQUE: 2 views each femur. FINDINGS: There is no visible bony abnormality or periosteal thickening. The soft tissues are grossly unremarkable. The hip joint appears unremarkable. Right femur: There is no visible fracture or bony abnormality. The soft tissues are unremarkable. The hip joint appears unremarkable. XR/XR femur LT 2V IMPRESSION: Unremarkable bilateral femur exam.
--- NOTE | ~2021-03-01 | XR_ITS ---
EXAMINATION: BILATERAL FEMUR. CLINICAL INFORMATION: Bruising the bilateral posterior thighs. COMPARISON: None TECHNIQUE: 2 views each femur. FINDINGS: There is no visible bony abnormality or periosteal thickening. The soft tissues are grossly unremarkable. The hip joint appears unremarkable. Right femur: There is no visible fracture or bony abnormality. The soft tissues are unremarkable. The hip joint appears unremarkable. XR/XR femur RT 2V IMPRESSION: Unremarkable bilateral femur exam.
--- NOTE | ~2021-03-01 | CT_ITS ---
EXAMINATION: CT HEAD WITHOUT CONTRAST CT CERVICAL SPINE WITHOUT CONTRAST CLINICAL INFORMATION: Poor historian. Alcohol. COMPARISON: 01/22/2021 and 12/16/2020 TECHNIQUE: Multidetector CT imaging of the head and cervical spine was performed without the use of intravenous contrast. Multiplanar reformats are reviewed. This CT examination was performed using dose optimization techniques as appropriate, variously including the following: *Automated exposure control *Adjustment of mA and/or kV according to patient size (this includes techniques or standardized protocols for targeted exams where dose is matched to indication/reason for exam; i.e. extremities or head) *Use of iterative reconstruction technique DLP: 711 mGy-cm. FINDINGS: There is no evidence of acute intracranial hemorrhage or territorial infarction. No abnormal mass effect or midline shift is seen. Huertas to white matter differentiation is well preserved. No extra-axial fluid collections are identified. The ventricles are normal in size. Extensive patchy and confluent subcortical, periventricular and deep white matter low-attenuation changes redemonstrated, with persistent fairly pronounced low-attenuation change within the bilateral thalami, midbrain and thaddeus, which is notably worse since 12/16/2020. Stable probable arachnoid cyst within the middle cranial fossa on the right. Cavernous carotid calcifications. The osseous structures and soft tissues are normal. The mastoid air cells and visualized portions of the paranasal sinuses are well-aerated. Atlantooccipital alignment is maintained. The vertebral bodies and posterior elements align normally. No acute fracture or subluxation. Vertebral body heights are maintained.Endplate osteophytes present throughout the cervical spine, bulky and bridging anteriorly C5-C6-C6 7 C7-T1. The cervicomedullary junction and spinal cord are grossly unremarkable. The paraspinal soft tissues are unremarkable. CT/CT cervical spine wo con IMPRESSION: * No acute intracranial pathology. * Severe chronic white matter small vessel ischemic changes with marked low-attenuation changes within the midbrain and thaddeus, stable from January 2021 but worse from December 2020. As discussed previously, this may suggest underlying toxic/metabolic abnormality. MRI brain without and with contrast could lend further specificity. * No cervical spine fracture or malalignment.
--- NOTE | ~2021-03-01 | CT_ITS ---
EXAMINATION: CT ANGIOGRAM OF THE CHEST WITH AND WITHOUT CONTRAST (CT PULMONARY ANGIOGRAM FOR PE) CT ABDOMEN/PELVIS WITH CONTRAST CLINICAL INFORMATION: Reason for Exam pt c etoh multiple bruises and poor historian c abd pain COMPARISON: Lumbar spine radiographs dated 09/23/2019 TECHNIQUE: Prior to contrast administration, noncontrast localization images were obtained. Subsequently, multidetector volumetric imaging was performed from the thoracic inlet through the pubic symphysis following the administration of 100 mL Omnipaque 350 intravenous contrast. Postcontrast images of the chest were acquired during the pulmonary angiographic phase, while imaging through the abdomen and pelvis was performed during the portal venous phase. No contrast reaction reported Sagittal, coronal, and MIP oblique sagittal reformatted images were obtained on the CT workstation, uploaded to PACS, and reviewed. This CT examination was performed using dose optimization techniques as appropriate, variously including the following: *Automated exposure control *Adjustment of mA and/or kV according to patient size (this includes techniques or standardized protocols for targeted exams where dose is matched to indication/reason for exam; i.e. extremities or head) *Use of iterative reconstruction technique Total exam dose-length product 376 mGy-cm FINDINGS: QUALITY OF STUDY/CONTRAST BOLUS: Satisfactory. PULMONARY ARTERIES: No central or segmental pulmonary emboli. THORACIC AORTA: No aneurysm or dissection. LUNG/PLEURA: Moderate to severe centrilobular paraseptal emphysema. Mild diffuse bronchial wall thickening. There are a few areas of patchy increased reticular and groundglass opacity within the left upper and left lower lobe. Moderate right and small left pleural effusions with accompanying atelectasis. No pneumothorax. MEDIASTINUM: Normal heart size. Triple vessel coronary calcifications. No pericardial effusion. No hilar or mediastinal lymphadenopathy. No evidence of septal bowing or right heart strain. No reflux of contrast into the hepatic veins to suggest elevated right heart pressures. CHEST WALL/AXILLA: No axillary or internal mammary lymphadenopathy. HEPATOBILIARY: Liver normal in size, contour and morphology. No suspicious lesions. No intra or extrahepatic biliary dilation. Gallbladder unremarkable. PANCREAS: Mildly atrophic. No inflammation. SPLEEN: Unremarkable. ADRENAL GLANDS: Unremarkable. KIDNEYS, URETERS AND BLADDER: Left kidney is atrophic and shows diminished enhancement with respect to the right. Right kidney normal in size. No hydronephrosis. No urinary calculi. Ureters normal in course and caliber. Bladder contains a Neves catheter but is otherwise unremarkable. GASTROINTESTINAL TRACT: Left colonic diverticulosis. No evidence of diverticulitis. Normal appendix. Stomach and small bowel unremarkable. PELVIC VISCERA: Prostate and seminal vesicles unremarkable. LYMPH NODES: No lymphadenopathy. PERITONEUM/BODY WALL: Unremarkable. VASCULAR STRUCTURES: Aorta is atherosclerotic but normal caliber. There is severe stenosis at the origin of the left renal artery. Patent venous structures. OSSEOUS STRUCTURES: No acute or suspicious osseous abnormalities. Severe discogenic degenerative disease at L5-S1 with subchondral erosive changes and accompanying sclerosis along the endplates at L5-S1, showing significant progression since the prior radiographs. CT/CT angio chest PE protocol IMPRESSION: * No pulmonary embolism. * Moderate right and small left pleural effusions and accompanying atelectasis. * There are some patchy reticular and groundglass opacities within left upper and lower lobes suspicious for focal areas of pneumonitis. * Moderate to severe emphysema. * Left colonic diverticulosis without evidence of diverticulitis. * Severe atherosclerotic vascular disease with triple vessel coronary calcifications and severe stenosis of the left renal artery resulting in chronic atrophy of the left kidney with respect to the right, with corresponding decreased enhancement of the left kidney with respect to the right. * Severe disc degenerative disease at L5-S1 with endplate erosive changes and accompanying sclerosis, essentially new since September 2019. While accelerated adjacent segment disease related to spinal fusion is considered, spondylodiscitis could have a similar appearance. Correlate with inflammatory markers and if there is persistent clinical concern for spinal infection, consider contrast-enhanced MRI for further evaluation. VTE: negative
--- NOTE | ~2021-03-01 | CT_ITS ---
EXAMINATION: CT ANGIOGRAM ABDOMEN CLINICAL INFORMATION: Evaluate renal artery stenosis COMPARISON: CT abdomen/pelvis dated 03/01/2021 TECHNIQUE: Multiple axial images were obtained through the abdomen following the administration of 100 mL Omnipaque 350 intravenous contrast. Images were reviewed on a dedicated 3-D workstation. This CT examination was performed using dose optimization techniques as appropriate, variously including the following: *Automated exposure control *Adjustment of mA and/or kV according to patient size (this includes techniques or standardized protocols for targeted exams where dose is matched to indication/reason for exam; i.e. extremities or head) *Use of iterative reconstruction technique DLP: 197 mGy-cm FINDINGS: IMAGED THORAX: Stable moderate right pleural effusion. Increased size of a small left pleural effusion. VASCULAR: Aorta is markedly atherosclerotic but normal caliber. Right renal artery widely patent. There is near complete thrombotic occlusion of the left renal artery, with trace flow evident within the distal right renal artery, with flow evident within the segmental renal arteries. Some of this flow appears to originate from a tiny superior left renal accessory artery (see guy images). Celiac axis is patent. Left gastric artery originates directly from the aorta, and while not significantly stenotic demonstrate cysts or opacification. Superior mesenteric artery widely patent. HEPATOBILIARY: Liver normal in size, contour and morphology. No suspicious lesions. No intra or extrahepatic biliary dilation. Gallbladder unremarkable. PANCREAS: Mildly atrophic. No inflammation. SPLEEN: Unremarkable. ADRENAL GLANDS: Unremarkable. KIDNEYS: Left kidney is atrophic and shows diminished enhancement with respect to the right. Right kidney normal in size. No hydronephrosis. GASTROINTESTINAL TRACT: Left colonic diverticulosis. No evidence of diverticulitis. Normal appendix. Stomach and small bowel unremarkable. LYMPH NODES: No lymphadenopathy. PERITONEUM/BODY WALL: Unremarkable. OSSEOUS STRUCTURES: No acute or suspicious osseous abnormalities. Severe discogenic degenerative disease at L5-S1 with subchondral erosive changes and accompanying sclerosis along the endplates at L5-S1, showing significant progression since the prior radiographs. CT/CT angio abdomen IMPRESSION: * There is 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 * Right renal artery widely patent. * Left gastric artery originates directly from the aorta and while patent shows diminished opacification which is of unclear clinical significance. * Moderate right and small moderate left pleural effusions, increased in size on the left since the prior exam. * Moderate to severe emphysema. * Severe disc degenerative disease at L5-S1 with endplate erosive changes and accompanying sclerosis, essentially new since September 2019. While accelerated adjacent segment disease related to spinal fusion is considered, spondylodiscitis could have a similar appearance. Correlate with inflammatory markers and if there is persistent clinical concern for spinal infection, consider contrast-enhanced MRI for further evaluation.
--- NOTE | 2021-03-01 11:57 | ECG_ITS ---
Test Reason : GENERAL MEDICAL Blood Pressure : / mmHG Vent. Rate : 092 BPM Atrial Rate : 092 BPM P-R Int : 146 ms QRS Dur : 090 ms QT Int : 450 ms P-R-T Axes : 087 037 077 degrees QTc Int : 556 ms Artifact in tracing Sinus rhythm with Premature supraventricular complexes Left atrial enlargement Left ventricular hypertrophy Nonspecific ST and T wave abnormality Abnormal ECG When compared with ECG of 23-JAN-2021 07:31, due to poor quality, difficult to compare Referred By: Lolita Odell Electronically Signed By:BREANA MATTHEWS
--- NOTE | 2021-03-01 12:11 | ED_ITS ---
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 (4.60-5.80) X10*6/uL Hgb (14.0-18.0) g/dl Hct (42.0-52.0) % MCV (80.0-98.0) fL MCH (27.0-33.0) pg MCHC (31.0-36.0) g/dl RDW (11.0-16.0) % Plt Count (160-400) X10*3/uL MPV (9.4-12.4) fL Immature Gran % (Auto) (0.0-0.4) % Neut % (Auto) (45-73) % Lymph % (Auto) (20-40) % [place] % (Auto) (2-11) % Eos % (Auto) (0-4) % Baso % (Auto) (0-2) % Lymph # (Auto) (1.2-4.9) X10*3/uL [place] # (Auto) (0.1-1.2) X10*3/uL Eos # (Auto) (0.0-0.4) X10*3/uL Baso # (Auto) (0.0-0.2) X10*3/uL Abs Immat Gran (auto) (0.00-0.03) X10*3/uL Absolute Neuts (auto) (2.0-8.3) x10*3/uL Absolute Nucleated RBC (0.0-0.012) X10*3/uL Nucleated RBC % (auto) (0.0-0.2) /100WBC PT (9.9-13.0) SEC INR (0.9-1.1) VBG pH (7.32-7.43) VBG pCO2 mmHg VBG pO2 mmHg VBG HCO3 (22-26) mmol/L VBG O2 Saturation % VBG Base Excess mmol/L Sodium (135-145) mmol/L Potassium (3.3-5.1) mmol/L Chloride (96-108) mmol/L Carbon Dioxide (22-29) mmol/L Anion Gap (12-20) BUN (9-16) mg/dL Creatinine (0.5-1.4) mg/dL Estim Creat Clear Calc Estimated GFR Random Glucose (60-115) mg/dL Osmolality (281-305) mosm/kg Lactic Acid (0.5-2.0) mmol/L Lactic Acid F/U @ 2Hr (0.5-2.0) mmol/L Calcium (8.4-10.2) mg/dL Magnesium (1.6-2.6) mg/dL Total Bilirubin (0.0-1.0) mg/dL AST (5-37) U/L ALT (0-40) U/L Alkaline Phosphatase (39-117) U/L Total Creatine Kinase (38-174) U/L Troponin I High Sens (<3.5-35.0) ng/L B-Natriuretic Peptide (<100) pg/mL Total Protein (6.5-8.0) g/dL Albumin (3.5-5.0) g/dL Lipase (8-78) U/L Urine Color Urine Appearance Urine pH (5.0-8.0) Ur Specific [place] (1.005-1.025) Urine Protein (NEG-TRACE) MG/DL Urine Glucose (UA) (NEG) MG/DL Urine Ketones (NEG) MG/DL Urine Blood (NEG) Urine Nitrite (NEG) Ur Leukocyte Esterase (NEG) Urine RBC (0) /HPF Urine WBC (0-4) /HPF Ur Squamous Epith Cells /LPF Urine Bacteria /LPF Urine Osmolality 154 L (373-1093) mosm/kg Urine Opiates Screen (Not Detect) Urine Fentanyl Screen (Not Detect) Ur Barbiturates Screen (Not Detect) Ur Phencyclidine Scrn (Not Detect) Ur Amphetamines Screen (Not Detect) U Benzodiazepines Scrn (Not Detect) Urine Cocaine Screen (Not Detect) U Marijuana (THC) Screen (Not Detect) Ethyl Alcohol mg/dL COVID-19 ([facility]) (Negative) COVID-19 Clin Com Imaging Data Bilateral femur x-rays: Attestation: I personally reviewed and interpreted this imaging study as follows: Radiologist's impression: FINDINGS: ?There is no visible bony abnormality or periosteal thickening. The soft tissues are grossly unremarkable. The hip joint appears unremarkable. Right femur: There is no visible fracture or bony abnormality. The soft tissues are unremarkable. The hip joint appears unremarkable. XR/XR femur LT 2V IMPRESSION: Unremarkable bilateral femur exam.? ECG Data Attestation: I personally reviewed and interpreted this ECG as follows: ECG interpretation date: 03/01/21 ECG interpretation time: 13:11 Interpretation: Sinus rhythm with premature supraventricular complexes with a ventricular rate of 92 with left atrial enlargement left ventricular hypertrophy with nonspecific ST and T-wave abnormalities no acute ischemic changes are noted similar when compared to prior EKG 01/23/2021 Critical Care Time Critical Care Time Critical Care Time: Yes Total Critical Care Time: 360 Attestation: I personally attest to this time spent taking care of the patient Discharge Plan Discharge Clinical Impression: Acute hyponatremia, Hypertension, Acute hypokalemia, Alkalosis, metabolic, Anemia Hypothermia Qualifiers: Encounter type: initial encounter Qualified Code(s): T68.XXXA - Hypothermia, initial encounter Patient Disposition: Admitted As Inpatient [facility] Past Medical History Attestation statement: The following information was validated with the patient. Medical History Acute hypokalemia Acute hyponatremia Arachnoid cyst Cerebral microvascular disease COPD (chronic obstructive pulmonary disease) H/O ETOH abuse HCV (hepatitis C virus) Heart disease Hypertension Seizure disorder Surgical History H/O left wrist surgery Social History Social History Household Members: Family Household Members Other:: Brother Housing: Apartment Do you presently have visiting nurse or other home services: No Alcohol intake: current Alcohol intake frequency: 3 or more drinks per day Alcohol type: beer Patient Tobacco Use Status: Current everyday Tobacco user Tobacco use type: Cigarette Cigarette Packs Per Day: 0.5 Cigarettes Per Day: 10.0 Second Hand Smoke Exposure: No Use of substances other than those prescribed or required for medical reasons: No Advance Directives: No Advance Directives Information Provided: Yes service: No Current occupational status: unemployed
[2021-03-01] MEDS: Albuterol Sulfate 90 MCG 8 GM INHALER 4 PUFF INHALE (13:11)
[2021-03-01 13:13] LABS: MANUAL DIFF FLAG NO
[2021-03-01 13:14] LABS: Venous Blood Gas Refer to POC result
[2021-03-01 13:15] LABS: VBG Base Excess 15.6 mmol/L; VBG HCO3 42 mmol/L (22-26); VBG pCO2 57 mmHg; VBG pH 7.47 (7.32-7.43); VBG pO2 51 mmHg
[2021-03-01 13:17] LABS: Basophils Percent Auto 0.3 % (0-2); Eosinophils Percent Auto 0.3 % (0-4); Hematocrit 28.7 % (42.0-52.0); Hemoglobin 10.7 g/dl (14.0-18.0); Imm Gran Abs Auto 0.08 X10*3/uL (0.00-0.03); Imm Gran Pct Auto 0.8 % (0.0-0.4); Lymphocytes Absolute Auto 0.8 X10*3/uL (1.2-4.9); Lymphocytes Percent Auto 7.7 % (20-40); Mean Corpuscular HGB Conc 37.3 g/dl (31.0-36.0); Mean Corpuscular Hemoglobin 31.8 pg (27.0-33.0); Mean Corpuscular Volume 85.2 fL (80.0-98.0); Mean Platelet Volume 9.2 fL (9.4-12.4); Monocytes Absolute Auto 0.8 X10*3/uL (0.1-1.2); Monocytes Percent Auto 7.7 % (2-11); Neutrophils Absolute Auto 8.7 x10*3/uL (2.0-8.3); Neutrophils Percent Auto 83.2 % (45-73); Platelet Count 230 X10*3/uL (160-400); Prothrombin Time 11.5 SEC (9.9-13.0); Red Blood Count 3.37 X10*6/uL (4.60-5.80); Red Cell Distribution Width 13.6 % (11.0-16.0); White Blood Count 10.5 X10*3/uL (4.8-10.8)
[2021-03-01 13:30] LABS: Ethanol < 10 mg/dL
[2021-03-01 13:39] LABS: B Type Natriuretic Peptide 1564 pg/mL (<100)
[2021-03-01 13:43] LABS: Alanine Aminotransferase 16 U/L (0-40); Albumin Level 3.3 g/dL (3.5-5.0); Alkaline Phosphatase 178 U/L (39-117); Anion Gap 19 (12-20); Aspartate Amino Transferase 34 U/L (5-37); Bilirubin Total 0.6 mg/dL (0.0-1.0); Blood Urea Nitrogen 11 mg/dL (9-16); Carbon Dioxide 33 mmol/L (22-29); Chloride 65 mmol/L (96-108); Creatinine Clr Calc Pharmacy 72.6; Estimated Glomerular Filt Rate > 60; Glucose Random 112 mg/dL (60-115); Lipase 22 U/L (8-78); Magnesium 1.8 mg/dL (1.6-2.6); Potassium 2.1 mmol/L (3.3-5.1); Sodium 115 mmol/L (135-145); Total Protein 6.6 g/dL (6.5-8.0)
[2021-03-01 13:49] LABS: COVID-19 Test Negative (Negative)
[2021-03-01 13:52] LABS: Lactic Acid 3.4 mmol/L (0.5-2.0)
[2021-03-01] MEDS: Metoprolol Succinate ER 50 MG TAB.ER.24H PO (14:07)
[2021-03-01] MEDS: ondansetron HCL 4 MG/2 ML VIAL IVPUSH (14:07)
[2021-03-01] MEDS: cefTRIAXone sodium 2 GM in 0.9 % Sodium Chloride 50 ML IV (14:09)
[2021-03-01] MEDS: KCl 40 mEq in 0.9 % Sodium Chl 40 MEQ/1,000 ML IV.SOLN 100 MEQ IVCONT (14:19)
[2021-03-01] MEDS: Thiamine HCL 100 MG in 0.9 % Sodium Chloride 100 ML 202 MG IV (14:34)
--- NOTE | 2021-03-01 14:56 | PHA.MEDREC ---
MED REC COMPLETE, PATIENT IS NOT A GOOD HISTORIAN, HE AGREED TO ALL THESE MEDICATIONS BUT IT IS NOT CLEAR IF HE HAS BEEN TAKING EVERYTHING PRESCRIBED Pharmacy Consult ? Medication Reconciliation Pharmacy has completed the medication reconciliation.
[2021-03-01 15:38] LABS: Reflex Lactate? Lactic Acid Added
[2021-03-01 15:41] LABS: Osmolality, Serum 244 mosm/kg (281-305)
[2021-03-01 16:10] LABS: Troponin-I High Sensitivity 60.4 ng/L (<3.5-35.0)
[2021-03-01 16:18] LABS: ~Lactic Acid-LAB USE ONLY 1.9 mmol/L (0.5-2.0)
[2021-03-01 16:27] LABS: Anion Gap 17 (12-20); Blood Urea Nitrogen 12 mg/dL (9-16); Calcium 8.5 mg/dL (8.4-10.2); Carbon Dioxide 35 mmol/L (22-29); Chloride 67 mmol/L (96-108); Creatinine Clr Calc Pharmacy 79.5; Estimated Glomerular Filt Rate > 60; Glucose Random 96 mg/dL (60-115); Potassium 2.1 mmol/L (3.3-5.1); Sodium 117 mmol/L (135-145)
[2021-03-01] MEDS: Potassium Chloride/H20 10 MEQ/100 ML PIGGYBACK 100 MEQ IV ×4 (16:44→21:56)
[2021-03-01] MEDS: Labetalol HCL 100 MG/20 ML VIAL 10 MG IVPUSH (16:44)
[2021-03-01 17:02] LABS: Appearance Urine CLEAR; Color Urine YELLOW; Glucose Urine UA NEG (NEG); Leukocyte Esterase Urine NEG (NEG); Nitrite Urine NEG (NEG); PH 6.5 (5.0-8.0); Specific Gravity - Urine <= 1.005 (1.005-1.025); UACC Culture Trigger NO; Urine Blood 1+ (NEG); Urine Ketones NEG (NEG); Urine Protein 2+ MG/DL (NEG-TRACE)
[2021-03-01 17:06] LABS: Osmolality, Serum 240 mosm/kg (281-305)
[2021-03-01 17:15] LABS: Osmolality Urine 154 mosm/kg (373-1093)
[2021-03-01 17:17] LABS: RBC Urine 0-2 /HPF (0); Squamous Epithelial Cell Urine TRACE /LPF; WBC Urine 0 /HPF (0-4)
[2021-03-01 17:18] LABS: Amphetamine Screen Urine Not Detected (Not Detect); Barbiturates, Urine Not Detected (Not Detect); Benzodiazepines Screen Urine Not Detected (Not Detect); Cannabinoid Screen Urine Not Detected (Not Detect); Cocaine Screen Urine Not Detected (Not Detect); Fentanyl, urine Not Detected (Not Detect); Opiate Screen Urine Not Detected (Not Detect); Phencyclidine Screen Urine Not Detected (Not Detect)
[2021-03-01] MEDS: Potassium Chloride Packet 20 MEQ PACKET 40 MEQ PO (17:18)
[2021-03-01] MEDS: iohexoL 350 MG/ML 100 ML INFUS..BTL IV (17:23)
[2021-03-01] MEDS: Labetalol HCL 100 MG/20 ML VIAL 20 MG IVPUSH (17:42)
[2021-03-01] MEDS: hydrALAZINE HCl 20 MG/ML VIAL 5 MG IVPUSH (19:22)
--- NOTE | 2021-03-01 21:19 | PC.NURSE ---
PATIENT REPORTING PAIN IN IV LOCATED IN HAND, STATING HE WOULD TAKE IT OUT HIMSELF IF ANOTHER IV WAS NOT FOUND. DR. MORAN AT BEDSIDE TO PLACE IV AFTER THIS RN ATTEMPTED ACCESS MULTIPLE TIMES. POTASSIUM CONTNIUES TO RUN, PATIENT COMPLAINING OF THE BURNING SENSATION, POTASSIUM GOING AT A SLOWER RATE AT THIS TIME DUE TO BURNING. HOSPITALIST AT BEDSIDE TO EVALUATE. AWAITING BED ASSIGNMENT.
[2021-03-01 21:47] LABS: Anion Gap 14 (12-20); Blood Urea Nitrogen 12 mg/dL (9-16); Calcium 8.3 mg/dL (8.4-10.2); Carbon Dioxide 35 mmol/L (22-29); Chloride 72 mmol/L (96-108); Creatinine Clr Calc Pharmacy 77.7; Estimated Glomerular Filt Rate > 60; Glucose Random 112 mg/dL (60-115); Potassium 3.3 mmol/L (3.3-5.1); Sodium 118 mmol/L (135-145)
[2021-03-01] MEDS: Enoxaparin Sodium 40 MG/0.4 ML SYRINGE SUBCUT (21:57)
--- NOTE | 2021-03-01 22:21 | PM.IMHP ---
History of Present Illness Date of Service: 03/01/21 Chief Complaint: Abdominal pain This is a 60 year male with past medical history of alcohol abuse, COPD, depression, hepatitis-C cough who was recently discharged from the hospital on 01/29 for severe hyponatremia related to alcohol use in [facility] presents to the hospital with complaints of lower abdominal pain. On my interview patient is alert, awake, oriented but not giving good history. It is unclear who called EMS, want time he says he called EMS the other time he says his brother called EMS, when asked where he lives he says he lives with his friends but then says that he is homeless, it is unclear why he called EMS or called EMS at this time but patient reports lower abdominal pain in the suprapubic region with no urinary symptoms including no frequency urgency dysuria, he reports no diarrhea, no nausea or vomiting, he denies any chest pain, no shortness of breath, he does report alcohol abuse and reports that he drank in the a.m. of day of presentation. Unable to obtain record review of system On arrival to the ED patient hemodynamically stable with elevated blood pressure with a systolic of 209/118, Initial labs are significant for WBC count 10.5, sodium level of 115 (was 131 on 01/26) potassium of 2.1, chloride of 65, bicarb of 33, osmolality of 244, lactic acid of 3.4, troponin of 62 repeat of 60.4, BNP of 1564, Abdomen pelvic CT shows diverticulosis without at evidence of diverticulitis, calcification severe stenosis of the left renal artery resulting in chronic atrophy of the left kidney with no other abnormality in the abdominal CT Chest CT shows no PE, moderate right and small left pleural effusion and accompanying atelectasis, some patchy reticular and ground-glass opacities within the left upper and lower lobe suspicious for focal areas of pneumonitis, Patient will be admitted for further management Review of Systems Review of Systems: Yes all other systems are reviewed and are negative PMFSH Medical History Acute hypokalemia Acute hyponatremia Arachnoid cyst Cerebral microvascular disease COPD (chronic obstructive pulmonary disease) H/O ETOH abuse HCV (hepatitis C virus) Heart disease Hypertension Seizure disorder Pertinent family history: Unable to obtain Surgical History H/O left wrist surgery Social History Household Members: Family Household Members Other:: Brother Housing: Apartment Do you presently have visiting nurse or other home services: No Alcohol intake: current Alcohol intake frequency: 3 or more drinks per day Alcohol type: beer Patient Tobacco Use Status: Current everyday Tobacco user Tobacco use type: Cigarette Cigarette Packs Per Day: 0.5 Cigarettes Per Day: 10.0 Second Hand Smoke Exposure: No Use of substances other than those prescribed or required for medical reasons: No Advance Directives: No Advance Directives Information Provided: Yes service: No Current occupational status: unemployed Meds Allergies Allergy/AdvReac Type Severity Reaction Status Date / Time acetaminophen [From PERCOCET] Allergy Mild Rash Verified 09/21/20 17:29 oxycodone [From PERCOCET] Allergy Mild Rash Verified 09/21/20 17:29 Penicillins [PENICILLINS] Allergy Mild Rash Verified 09/21/20 17:29 Active Medications: Current Medications Acetaminophen (Acetaminophen 325 Mg Tablet) 650 mg PO Q6H PRN PRN Reason: Pain, Mild (Pain Scale 1-3) Albuterol Sulfate (Albuterol Sulfate 90 Mcg 8 Gm Inhaler) 2 puff INHALE Q4H PRN PRN Reason: Shortness Of Breath Aspirin (Aspirin Enteric Coated 81 Mg Tablet.Dr) 81 mg PO DAILY CHEPE Docusate Sodium (Docusate Sodium 100 Mg Capsule) 100 mg PO DAILY PRN PRN Reason: Constipation Enoxaparin Sodium (Enoxaparin Sodium 40 Mg/0.4 Ml Syringe) 40 mg SUBCUT Q24H CHEPE Last Admin: 03/01/21 21:57 Dose: 40 mg Documented by: Fluoxetine HCl (Fluoxetine Hcl 20 Mg Capsule) 40 mg PO DAILY CHEPE Folic Acid (Folic Acid 1 Mg Tablet) 1 mg PO DAILY CHEPE Potassium Chloride/Sodium Chloride () 40 meq in 1,000 mls @ 100 mls/hr IVCONT .Q10H CHEPE Last Admin: 03/01/21 14:19 Dose: 100 mls/hr Documented by: Potassium Chloride () 10 meq in 100 mls @ 100 mls/hr IV Q1H CHEPE Stop: 03/02/21 02:14 Labetalol HCl (Labetalol Hcl 100 Mg/20 Ml Vial) 20 mg IVPUSH Q20M PRN PRN Reason: SBP > 160 Last Admin: 03/01/21 17:42 Dose: 20 mg Documented by: Metoprolol Succinate (Metoprolol Succinate Er 50 Mg Tab.Er.24h) 50 mg PO DAILY COUNT INCLUDES THE [facility]; Protocol Multivitamins/Vitamin C (Multivitamin Tablet) 1 tab PO DAILY COUNT INCLUDES THE [facility] Ondansetron HCl (Ondansetron Hcl 4 Mg/2 Ml Vial) 4 mg IVPUSH Q8H PRN PRN Reason: Nausea and Vomiting Oxcarbazepine (Oxcarbazepine 150 Mg Tablet) 150 mg PO TID COUNT INCLUDES THE [facility] Pharmacy Consult (Consult Rx Perform Med Rec) 1 each MISCELLANE ONCE PRN PRN Reason: Consult order Sodium Chloride (0.9 % Sodium Chloride Flush 3 Ml Syringe) 3 ml IVFLUSH QSHIFT COUNT INCLUDES THE [facility] Thiamine HCl (Thiamine Hcl 100 Mg Tablet) 100 mg PO DAILY COUNT INCLUDES THE [facility] Home Medications Medication Instructions Recorded Confirmed Last Taken Type thiamine HCl (vitamin B1) 100 mg 1 tab PO DAILY 09/20/20 03/01/21 01/22/21 History tablet (Vitamin B-1) albuterol sulfate 90 mcg/actuation 2 puff PO Q4H PRN 12/16/20 03/01/21 01/22/21 History aerosol inhaler (ProAir HFA) multivitamin 1 tab PO DAILY 12/16/20 03/01/21 01/22/21 History aspirin 81 mg tablet,delayed 1 tab PO DAILY 01/22/21 03/01/21 01/22/21 History release fluoxetine 20 mg tablet 40 mg PO DAILY 03/01/21 03/01/21 Unknown History folic acid 1 mg tablet 1 mg PO DAILY 03/01/21 03/01/21 Unknown History oxcarbazepine 150 mg tablet 150 mg PO TID 03/01/21 03/01/21 Unknown History Physical Exam Vital Signs and Narrative: Vital Signs: Last Vital Signs Temp 98.1 F 03/01/21 20:50 Pulse 86 03/01/21 20:50 Resp 18 03/01/21 20:50 BP 174/95 H 03/01/21 20:50 Pulse Ox 99 03/01/21 20:50 BMI result Body Mass Index 20.2 Const: Other: unkempt General: cooperative and no acute distress Orientation/consciousness: patient oriented x3 Eyes: General: appearance normal, both eyes and all related structures Pupils: Equal, round and reactive pupils present Resp: Effort & Inspection: normal respiratory effort Auscultation: clear to auscultation bilaterally Cardio: Rate: regular rate Rhythm: regular rhythm GI: Palpation (GI): Soft to palpation Auscultation: normal bowel sounds Skin: General skin exam: no rashes or lesions noted Neuro: General: patient oriented x3 Cranial nerves: Yes Equal, round and reactive pupils present Cognition (Neuro): normal cognition Extrem: General: Yes normal to inspection and Yes no pedal edema Results Labs CBC and Chem 7: 03/01/21 13:01 03/02/21 03:40 Labs: Laboratory Results - last 24 hr 03/01/21 03/01/21 03/01/21 13:01 13: 13:01 MCV 85.2 MCH 31.8 MCHC 37.3 H RDW 13.6 Plt Count 230 MPV 9.2 L Immature Gran % (Auto) 0.8 H Neut % (Auto) 83.2 H Lymph % (Auto) 7.7 L Daniels % (Auto) 7.7 Eos % (Auto) 0.3 Baso % (Auto) 0.3 Lymph # (Auto) 0.8 L Daniels # (Auto) 0.8 Eos # (Auto) 0.0 Baso # (Auto) 0.0 Abs Immat Gran (auto) 0.08 H Absolute Neuts (auto) 8.7 H Absolute Nucleated RBC 0.000 Nucleated RBC % (auto) 0.0 PT 11.5 INR 1.0 VBG pH VBG pCO2 VBG pO2 VBG HCO3 VBG O2 Saturation VBG Base Excess Anion Gap 19 Estim Creat Clear Calc 72.6 Estimated GFR > 60 Random Glucose 112 Osmolality Lactic Acid Lactic Acid F/U @ 2Hr Calcium 9.0 D Magnesium 1.8 Total Bilirubin 0.6 AST 34 D ALT 16 Alkaline Phosphatase 178 H D Total Creatine Kinase 93 Troponin I High Sens B-Natriuretic Peptide Total Protein 6.6 Albumin 3.3 L Lipase 22 Urine Color Urine Appearance Urine pH Ur Specific [place] Urine Protein Urine Glucose (UA) Urine Ketones Urine Blood Urine Nitrite Ur Leukocyte Esterase Urine RBC Urine WBC Ur Squamous Epith Cells Urine Bacteria Urine Osmolality Urine Opiates Screen Urine Fentanyl Screen Ur Barbiturates Screen Ur Phencyclidine Scrn Ur Amphetamines Screen U Benzodiazepines Scrn Urine Cocaine Screen U Marijuana (THC) Screen Ethyl Alcohol COVID-19 ([facility]) COVID-19 [employer] 03/01/21 03/01/21 03/01/21 13:01 13:01 13:01 MCV MCH MCHC RDW Plt Count MPV Immature Gran % (Auto) Neut % (Auto) Lymph % (Auto) Daniels % (Auto) Eos % (Auto) Baso % (Auto) Lymph # (Auto) Daniels # (Auto) Eos # (Auto) Baso # (Auto) Abs Immat Gran (auto) Absolute Neuts (auto) Absolute Nucleated RBC Nucleated RBC % (auto) PT INR VBG pH VBG pCO2 VBG pO2 VBG HCO3 VBG O2 Saturation VBG Base Excess Anion Gap Estim Creat Clear Calc Estimated GFR Random Glucose Osmolality Lactic Acid 3.4 H* Lactic Acid F/U @ 2Hr Calcium Magnesium Total Bilirubin AST ALT Alkaline Phosphatase Total Creatine Kinase Troponin I High Sens 62.0 H B-Natriuretic Peptide 1564 H Total Protein Albumin Lipase Urine Color Urine Appearance Urine pH Ur Specific [place] Urine Protein Urine Glucose (UA) Urine Ketones Urine Blood Urine Nitrite Ur Leukocyte Esterase Urine RBC Urine WBC Ur Squamous Epith Cells Urine Bacteria Urine Osmolality Urine Opiates Screen Urine Fentanyl Screen Ur Barbiturates Screen Ur Phencyclidine Scrn Ur Amphetamines Screen U Benzodiazepines Scrn Urine Cocaine Screen U Marijuana (THC) Screen Ethyl Alcohol < 10 COVID-19 ([facility]) COVID-19 [employer] 03/01/21 03/01/21 03/01/21 13:01 13:02 13:07 MCV MCH MCHC RDW Plt Count MPV Immature Gran % (Auto) Neut % (Auto) Lymph % (Auto) Daniels % (Auto) Eos % (Auto) Baso % (Auto) Lymph # (Auto) Daniels # (Auto) Eos # (Auto) Baso # (Auto) Abs Immat Gran (auto) Absolute Neuts (auto) Absolute Nucleated RBC Nucleated RBC % (auto) PT INR VBG pH 7.47 H VBG pCO2 57 VBG pO2 51 VBG HCO3 42 H VBG O2 Saturation 80.0 VBG Base Excess 15.6 Anion Gap Estim Creat Clear Calc Estimated GFR Random Glucose Osmolality 244 L Lactic Acid Lactic Acid F/U @ 2Hr Calcium Magnesium Total Bilirubin AST ALT Alkaline Phosphatase Total Creatine Kinase Troponin I High Sens B-Natriuretic Peptide Total Protein Albumin Lipase Urine Color Urine Appearance Urine pH Ur Specific [place] Urine Protein Urine Glucose (UA) Urine Ketones Urine Blood Urine Nitrite Ur Leukocyte Esterase Urine RBC Urine WBC Ur Squamous Epith Cells Urine Bacteria Urine Osmolality Urine Opiates Screen Urine Fentanyl Screen Ur Barbiturates Screen Ur Phencyclidine Scrn Ur Amphetamines Screen U Benzodiazepines Scrn Urine Cocaine Screen U Marijuana (THC) Screen Ethyl Alcohol COVID-19 ([facility]) Negative COVID-19 Clin Com See Note 03/01/21 03/01/21 03/01/21 15:43 16:00 16:00 MCV MCH MCHC RDW Plt Count MPV Immature Gran % (Auto) Neut % (Auto) Lymph % (Auto) Daniels % (Auto) Eos % (Auto) Baso % (Auto) Lymph # (Auto) Daniels # (Auto) Eos # (Auto) Baso # (Auto) Abs Immat Gran (auto) Absolute Neuts (auto) Absolute Nucleated RBC Nucleated RBC % (auto) PT INR VBG pH VBG pCO2 VBG pO2 VBG HCO3 VBG O2 Saturation VBG Base Excess Anion Gap 17 Estim Creat Clear Calc 79.5 Estimated GFR > 60 Random Glucose 96 Osmolality Lactic Acid Lactic Acid F/U @ 2Hr 1.9 Calcium 8.5 Magnesium Total Bilirubin AST ALT Alkaline Phosphatase Total Creatine Kinase Troponin I High Sens 60.4 H B-Natriuretic Peptide Total Protein Albumin Lipase Urine Color Urine Appearance Urine pH Ur Specific [place] Urine Protein Urine Glucose (UA) Urine Ketones Urine Blood Urine Nitrite Ur Leukocyte Esterase Urine RBC Urine WBC Ur Squamous Epith Cells Urine Bacteria Urine Osmolality Urine Opiates Screen Urine Fentanyl Screen Ur Barbiturates Screen Ur Phencyclidine Scrn Ur Amphetamines Screen U Benzodiazepines Scrn Urine Cocaine Screen U Marijuana (THC) Screen Ethyl Alcohol COVID-19 ([facility]) COVID-19 Clin Com 03/01/21 03/01/21 03/01/21 16:00 16:54 16:54 MCV MCH MCHC RDW Plt Count MPV Immature Gran % (Auto) Neut % (Auto) Lymph % (Auto) Daniels % (Auto) Eos % (Auto) Baso % (Auto) Lymph # (Auto) Daniels # (Auto) Eos # (Auto) Baso # (Auto) Abs Immat Gran (auto) Absolute Neuts (auto) Absolute Nucleated RBC Nucleated RBC % (auto) PT INR VBG pH VBG pCO2 VBG pO2 VBG HCO3 VBG O2 Saturation VBG Base Excess Anion Gap Estim Creat Clear Calc Estimated GFR Random Glucose Osmolality 240 L Lactic Acid Lactic Acid F/U @ 2Hr Calcium Magnesium Total Bilirubin AST ALT Alkaline Phosphatase Total Creatine Kinase Troponin I High Sens B-Natriuretic Peptide Total Protein Albumin Lipase Urine Color YELLOW Urine Appearance CLEAR Urine pH 6.5 Ur Specific [place] <= 1.005 Urine Protein 2+ H Urine Glucose (UA) NEG Urine Ketones NEG Urine Blood 1+ H Urine Nitrite NEG Ur Leukocyte Esterase NEG Urine RBC 0-2 Urine WBC 0 Ur Squamous Epith Cells TRACE Urine Bacteria NONE Urine Osmolality Urine Opiates Screen Not Detected Urine Fentanyl Screen Not Detected Ur Barbiturates Screen Not Detected Ur Phencyclidine Scrn Not Detected Ur Amphetamines Screen Not Detected U Benzodiazepines Scrn Not Detected Urine Cocaine Screen Not Detected U Marijuana (THC) Screen Not Detected Ethyl Alcohol COVID-19 ([facility]) COVID-19 [employer] 03/01/21 03/01/21 16:55 21:17 MCV MCH MCHC RDW Plt Count MPV Immature Gran % (Auto) Neut % (Auto) Lymph % (Auto) Daniels % (Auto) Eos % (Auto) Baso % (Auto) Lymph # (Auto) Daniels # (Auto) Eos # (Auto) Baso # (Auto) Abs Immat Gran (auto) Absolute Neuts (auto) Absolute Nucleated RBC Nucleated RBC % (auto) PT INR VBG pH VBG pCO2 VBG pO2 VBG HCO3 VBG O2 Saturation VBG Base Excess Anion Gap 14 Estim Creat Clear Calc 77.7 Estimated GFR > 60 Random Glucose 112 Osmolality Lactic Acid Lactic Acid F/U @ 2Hr Calcium 8.3 L Magnesium Total Bilirubin AST ALT Alkaline Phosphatase Total Creatine Kinase Troponin I High Sens B-Natriuretic Peptide Total Protein Albumin Lipase Urine Color Urine Appearance Urine pH Ur Specific [place] Urine Protein Urine Glucose (UA) Urine Ketones Urine Blood Urine Nitrite Ur Leukocyte Esterase Urine RBC Urine WBC Ur Squamous Epith Cells Urine Bacteria Urine Osmolality 154 L Urine Opiates Screen Urine Fentanyl Screen Ur Barbiturates Screen Ur Phencyclidine Scrn Ur Amphetamines Screen U Benzodiazepines Scrn Urine Cocaine Screen U Marijuana (THC) Screen Ethyl Alcohol COVID-19 ([facility]) COVID-19 Clin Com Imaging Radiologist's Impressions: Impressions Femur X-Ray 03/01/21 12:28 IMPRESSION: Unremarkable bilateral femur exam. Femur X-Ray 03/01/21 12:28 IMPRESSION: Unremarkable bilateral femur exam. Head CT 03/01/21 17:19 IMPRESSION: * No acute intracranial pathology. * Severe chronic white matter small vessel ischemic changes with marked low-attenuation changes within the midbrain and thaddeus, stable from January 2021 but worse from December 2020. As discussed previously, this may suggest underlying toxic/metabolic abnormality. MRI brain without and with contrast could lend further specificity. * No cervical spine fracture or malalignment. Cervical Spine CT 03/01/21 17:20 IMPRESSION: * No acute intracranial pathology. * Severe chronic white matter small vessel ischemic changes with marked low-attenuation changes within the midbrain and thaddeus, stable from January 2021 but worse from December 2020. As discussed previously, this may suggest underlying toxic/metabolic abnormality. MRI brain without and with contrast could lend further specificity. * No cervical spine fracture or malalignment. Chest CTA 03/01/21 17:21 IMPRESSION: * No pulmonary embolism. * Moderate right and small left pleural effusions and accompanying atelectasis. * There are some patchy reticular and groundglass opacities within left upper and lower lobes suspicious for focal areas of pneumonitis. * Moderate to severe emphysema. * Left colonic diverticulosis without evidence of diverticulitis. * Severe atherosclerotic vascular disease with triple vessel coronary calcifications and severe stenosis of the left renal artery resulting in chronic atrophy of the left kidney with respect to the right, with corresponding decreased enhancement of the left kidney with respect to the right. * Severe disc degenerative disease at L5-S1 with endplate erosive changes and accompanying sclerosis, essentially new since September 2019. While accelerated adjacent segment disease related to spinal fusion is considered, spondylodiscitis could have a similar appearance. Correlate with inflammatory markers and if there is persistent clinical concern for spinal infection, consider contrast-enhanced MRI for further evaluation. VTE: negative Abdomen/Pelvis CT 03/01/21 17:23 IMPRESSION: * No pulmonary embolism. * Moderate right and small left pleural effusions and accompanying atelectasis. * There are some patchy reticular and groundglass opacities within left upper and lower lobes suspicious for focal areas of pneumonitis. * Moderate to severe emphysema. * Left colonic diverticulosis without evidence of diverticulitis. * Severe atherosclerotic vascular disease with triple vessel coronary calcifications and severe stenosis of the left renal artery resulting in chronic atrophy of the left kidney with respect to the right, with corresponding decreased enhancement of the left kidney with respect to the right. * Severe disc degenerative disease at L5-S1 with endplate erosive changes and accompanying sclerosis, essentially new since September 2019. While accelerated adjacent segment disease related to spinal fusion is considered, spondylodiscitis could have a similar appearance. Correlate with inflammatory markers and if there is persistent clinical concern for spinal infection, consider contrast-enhanced MRI for further evaluation. VTE: negative Assessment and Plan (1) Acute hyponatremia: Status: Acute (2) Acute hypokalemia: Status: Acute (3) Lactic acidosis: Status: Acute (4) Elevated brain natriuretic peptide (BNP) level: Status: Acute (5) CHF (congestive heart failure): Status: Acute (6) Hypertensive urgency: Status: Acute This is a 60-year-old male with past medical history of alcohol abuse with previous admissions for hypernatremia presents to the hospital found to have hypokalemia and hyponatremia # hypernatremia - most likely secondary to beer proteinemia - has low urine as well as low serum osmolality, sodium of 115 - nephrology was consulted, patient was started on NS at 100 cc/hr with slight improvement in her of his sodium - goal is to increase to 125 in 24 hours from that time 1115 resulted which is around 1:00 p.m. on 03/02 - will continue IV fluids as above - monitor respiratory status - further nephrology recommendations appreciated # hypokalemia - most likely secondary to poor oral intake - repleted - follow BMP # lactic acidosis - unclear etiology - has not had any hypotension, no hypoxia - possibly secondary to dehydration - improved with IV fluids # elevated BNP and evidence of CHF on imaging - patient has elevated BNP, as well as pleural effusion on chest CT - clinically appears dehydrated - patient is receiving IV fluids for the above reasons - will consult Cardiology for further recommendation - will obtain echocardiogram as patient has no history of CHF in the past # hypertensive urgency - patient presented to the hospital with elevated SBP as well as DBP - given labetalol, hydralazine, with blood pressure now in the 170s over 100 - at this time will monitor # alcohol abuse with potential for withdrawal - currently has no evidence of withdrawal - will monitor with stool, potentially will need to start phenobarb protocol - continue thiamine and folic acid DVT prophylaxis: Lovenox Quality Stroke Does the patient have a stroke diagnosis?: No VTE Prior VTE?: No VTE Risk Level:: Medical - moderate - high VTE Device Contraindication: Treatment Not Indicated VTE Drug Contraindication: N/A - Med Ordered
[2021-03-02] VITALS (13 sets, daily range): BP systolic 149–208; BP diastolic 96–133; PULSE 81–99; RESP 16–22; TEMP 36.6–37.1; O2SAT 95–99
[2021-03-02] MEDS: Azithromycin 500 MG in 0.9 % Sodium Chloride 250 ML 125 MG IV ×2 (00:15→22:01)
[2021-03-02 00:56] LABS: Anion Gap 15 (12-20); Blood Urea Nitrogen 14 mg/dL (9-16); Calcium 7.9 mg/dL (8.4-10.2); Carbon Dioxide 30 mmol/L (22-29); Chloride 77 mmol/L (96-108); Creatinine Clr Calc Pharmacy 74.2; Estimated Glomerular Filt Rate > 60; Glucose Random 104 mg/dL (60-115); Potassium 4.4 mmol/L (3.3-5.1); Sodium 118 mmol/L (135-145)
[2021-03-02] MEDS: Potassium Chloride/H20 10 MEQ/100 ML PIGGYBACK 100 MEQ IV (01:35)
[2021-03-02] MEDS: KCl 40 mEq in 0.9 % Sodium Chl 40 MEQ/1,000 ML IV.SOLN 100 MEQ IVCONT ×2 (01:38→11:00)
--- NOTE | 2021-03-02 01:44 | PC.NURSE ---
SPOKE WITH THE HOSPITALIST PATIENT REQUESTING SOMETHING TO HELP HIM SLEEP AND INFORMING HER OF PATIENTS POTASSIUM LEVEL OF 4.4. ORDERS TO STOP ALL 10MEQ/100ML INFUSIONS AND HAVE MAINTAINCE FLUID OF 40MEQ IN 1000ML CONTINUE. PATIENT IS ALERT AND ORIENTED, BREATHING IS EVEN AND UNLABORED SKIN IS P,D,W. WITH NO DISTRESS NOTED.
[2021-03-02] MEDS: diphenhydrAMINE HCL 50 MG/ML VIAL 25 MG IVPUSH (02:13)
[2021-03-02 04:04] LABS: Anion Gap 16 (12-20); Blood Urea Nitrogen 13 mg/dL (9-16); Calcium 7.9 mg/dL (8.4-10.2); Carbon Dioxide 27 mmol/L (22-29); Chloride 80 mmol/L (96-108); Creatinine Clr Calc Pharmacy 71.8; Estimated Glomerular Filt Rate > 60; Glucose Random 97 mg/dL (60-115); Potassium 3.7 mmol/L (3.3-5.1); Sodium 119 mmol/L (135-145)
[2021-03-02 07:30] LABS: MANUAL DIFF FLAG NO
[2021-03-02 08:04] LABS: Blood Urea Nitrogen 13 mg/dL (9-16); Calcium 8.2 mg/dL (8.4-10.2); Creatinine Clr Calc Pharmacy 72.6; Estimated Glomerular Filt Rate > 60; Glucose Random 102 mg/dL (60-115)
[2021-03-02 08:18] LABS: Anion Gap 16 (12-20); Carbon Dioxide 30 mmol/L (22-29); Chloride 79 mmol/L (96-108); Potassium 3.5 mmol/L (3.3-5.1); Sodium 121 mmol/L (135-145)
[2021-03-02] MEDS: OXcarbazepine 150 MG TABLET PO ×3 (08:39→20:07)
[2021-03-02] MEDS: Metoprolol Succinate ER 50 MG TAB.ER.24H PO (08:39)
[2021-03-02] MEDS: Folic Acid 1 MG TABLET PO (08:39)
[2021-03-02] MEDS: FLUoxetine HCl 20 MG CAPSULE 40 MG PO (08:39)
[2021-03-02] MEDS: Multivitamin TABLET 1 TAB PO (08:39)
[2021-03-02] MEDS: Aspirin Enteric Coated 81 MG TABLET.DR PO (08:39)
[2021-03-02] MEDS: Thiamine HCL 100 MG TABLET PO (08:39)
[2021-03-02 08:40] LABS: Basophils Percent Auto 0.4 % (0-2); Eosinophils Percent Auto 0.3 % (0-4); Hematocrit 28.1 % (42.0-52.0); Imm Gran Abs Auto 0.04 X10*3/uL (0.00-0.03); Imm Gran Pct Auto 0.4 % (0.0-0.4); Lymphocytes Absolute Auto 0.9 X10*3/uL (1.2-4.9); Lymphocytes Percent Auto 9.3 % (20-40); Mean Corpuscular HGB Conc 35.6 g/dl (31.0-36.0); Mean Corpuscular Hemoglobin 30.9 pg (27.0-33.0); Mean Corpuscular Volume 86.7 fL (80.0-98.0); Mean Platelet Volume 9.6 fL (9.4-12.4); Monocytes Absolute Auto 0.9 X10*3/uL (0.1-1.2); Neutrophils Absolute Auto 7.9 x10*3/uL (2.0-8.3); Neutrophils Percent Auto 80.6 % (45-73); Platelet Count 236 X10*3/uL (160-400); Red Blood Count 3.24 X10*6/uL (4.60-5.80); Red Cell Distribution Width 13.7 % (11.0-16.0); White Blood Count 9.9 X10*3/uL (4.8-10.8)
[2021-03-02] MEDS: 0.9 % Sodium Chloride Flush 3 ML SYRINGE IVFLUSH (08:40)
--- NOTE | 2021-03-02 08:47 | PC.NURSE ---
pt resting in the stretcher, respirations even and unlabored, ls diminished in the bases, denies pain and sob at this time, normal sinus on the monitor.
--- NOTE | 2021-03-02 09:30 | CA_ITS ---
Transthoracic Echocardiogram Patient (Last, First, Middle): Luan Mitchell, Gender: Male Date of : 1960 Age: 60 Procedure Date: 03/02/2021 Procedure Type: Transthoracic Echocardiogram Location: ER Height: 170.18 cm Weight: 58.51 kg BSA: 1.68 m2 Heart Rate: bpm BP: 177 / 100 mmHg Customer Service Agent: WILMER Referring MD: Allison Trotter MD Symptoms: CHF Study Quality: Fair ECG Rhythm: Sinus Conclusions: - The left ventricular systolic function is mildly decreased. The visually estimated ejection fraction is between 45-50%. - The mid inferior and basal inferolateral segments are hypokinetic. - The basal inferior segment is akinetic. - Evidence suggests grade II (moderate) diastolic dysfunction. - There is mild calcification of the aortic valve. - There is moderate mitral annular calcification. Findings Left Ventricle Normal left ventricular cavity size. There is mildly increased left ventricular wall thickness. The left ventricular systolic function is mildly decreased. The visually estimated ejection fraction is between 45-50%. The calculated ejection fraction is 50% by biplane method. There is mild global hypokinesis. E/E prime ratio is >15, consistent with elevated filling pressures. Evidence suggests grade II (moderate) diastolic dysfunction. Wall Motion Rest Echo Findings The mid inferior and basal inferolateral segments are hypokinetic. The basal inferior segment is akinetic. Right Ventricle Normal right ventricular cavity size and systolic function. Atria The left atrium is mildly dilated. The right atrium is normal in size. Aortic Valve The aortic valve was not well visualized. There is mild calcification of the aortic valve. There is no aortic valve stenosis. The mean gradient is 4 mmHg. There is trace (trivial) aortic valve regurgitation. Mitral Valve There is moderate mitral annular calcification. There is mild mitral valve regurgitation. There is no mitral valve stenosis. Pulmonic Valve The pulmonic valve was not well visualized. Tricuspid Valve Normal tricuspid valve structure. There is trace tricuspid valve regurgitation. The pulmonary artery systolic pressure is normal. Great Vessels The aortic annulus, sinuses of valsalva, and asc aorta are normal in size. Venous The inferior vena cava is normal in size and collapses greater than 50% with inspiration. Pericardium/Pleural There is a trivial pericardial effusion. Prior Study Comparison No prior study available for comparison. Measurements 2D Linear Measurements IVSd: 1.07 0.6-0.9/0.6-1.0 cm LVIDd: 4.58 3.9-5.3/4.2-5.9 cm LVIDd Index: 2.73 2.4-3.2/2.2-3.1 cm/m2 LVIDs: 3.70 2.0-3.6 cm LVPWd: 1.12 0.7-1.1 cm Ao Root: 3.50 2.1-3.5 cm LA Diam: 3.40 2.7-3.8/3.0-4.0 cm LAIDs Index: 2.02 1.5-2.3 cm/m2 LV Mass: 222.79 67-162/88-224 g LV Mass Index: 132.61 43-95/49-115 g/m2 LVOT Diam: 2.10 3.0+(-)1.3 cm 2D Systolic Function EF 4C: 46.00 >55% EF 2C: 47.30 >55% EF BiP: 49.80 >55% Mitral Valve MV Pk E: 1.06 MV PK A: 0.84 MV Decel Time: 186.00 E/A: 1.30 E'Lateral: 8.59 E'Medial: 5.00 E/E' Med: 21.20 E/E' Lat: 12.30 PHT: 55.00 MVA PHT: 4.00 Decel [place]: 5.69 Aortic Valve AoV Pk Gwyn: 1.27 AoV Mn Gwyn: 0.91 AoV VTI: 0.20 AoV Pk Grad: 6.00 Aov Mn Grad: 4.00 JAVAN Cont.VTI: 2.35 LVOT LVOT Pk Gwyn: 0.81 LVOT Mn Gwyn: 0.54 LVOT VTI: 0.14 LVOT Pk Grad: 3.00 LVOT Mn Grad: 1.00 LVOT Diam: 2.10 LVOT Area: 3.46 Diastolic Function MV Pk E: 1.06 MV Pk A: 0.84 E/A: 1.30 E'Medial: 5.00 E/E' Med: 21.20 E' Laterial: 8.59 E/E' Lat: 12.30 Right Ventricle TAPSE (mm): 1.75 TVS' Gwyn: 14.10 Tricuspid Valve TR Pk Gwyn: 1.42 TR Pk Grad: 8.00 RA Press: 8.00 RVSP: 16.00 Great Vessels Aorta Ao Root-2D: 3.50 2.0-3.7 cm Ao Asc: 3.60 2.1-3.4 cm Updated in Other Vendor System with Status of Final Rory Askew MD electronically signed on 03/02/2021 4:19:28 PM with status of Final
[2021-03-02] MEDS: carvediloL 12.5 MG TABLET PO ×2 (09:31→20:04)
--- NOTE | 2021-03-02 10:28 | MHC.CM.PN ---
CM MET WITH PT WHO REPORTS HE LIVES ALONE AND IS INDEPENDENT PT DENIES USE OF DME OR HOME/COMMUNITY SERVICES PT REPORTS HIS PCP IS DR SPAULDING AT [facility] PT HAS A HCP ON FILE CURRENT DC PLAN IS HOME VS HOME WITH RECOVERY SUPPORT REFERRALS PT WILL LIKELY NEED THE SHUTTLE
--- NOTE | 2021-03-02 11:53 | PC.NURSE ---
kcl 40meq stopped at this time per md orders
--- NOTE | 2021-03-02 12:24 | PC.NURSE ---
report given to overflow rn
--- NOTE | 2021-03-02 12:27 | PM.CNCAR ---
History of Present Illness History of Present Illness Date of Service: 03/02/21 Chief complaint: Hyponatremia, Hypokalemia Narrative: This is this is a cardiology consultation regarding a question of congestive heart failure. Seems to be somewhat of a poor historian. Multiple comorbidities including alcohol abuse, COPD, depression, hepatitis-C. It seems that he was recently hospitalized for severe hyponatremia thought to be related to alcohol use. Now he is admitted with abdominal pain. He also states he short of breath but when I questioned him further he states that he has chronic shortness of breath and has always felt this way. No clear anginal-type chest pains. It seems that his blood pressure has been quite high since admission. Otherwise cardiology has been asked to see him for further evaluation. However in spite of numerous attempts to get a detailed history, he is a poor historian and gives somewhat vague answers to most questions. Review of Systems Review of Systems: Yes all other systems are reviewed and are negative Cardiovascular: Cardiovascular: Reports as per HPI, Reports no additional cardiovascular complaints, Denies acrocyanosis, Denies cool extremities, Denies painful fingertips, Denies chest pain, Denies chest pain at rest, Denies diaphoresis, Denies syncope, Denies irregular heart rhythm, Denies claudication, Denies leg edema, Denies lightheadedness, Denies palpitations and Reports dyspnea Respiratory: Respiratory: Reports dyspnea Neurologic: Denies syncope Endocrine: Endocrine: Denies palpitations PMFSH Past Medical History Medical History Acute hypokalemia Acute hyponatremia Arachnoid cyst Cerebral microvascular disease COPD (chronic obstructive pulmonary disease) H/O ETOH abuse HCV (hepatitis C virus) Heart disease Hypertension Seizure disorder Family History Pertinent family history: Possible cardiac issues in father/brother but unable to elaborate. Surgical History Surgical History H/O left wrist surgery Social History Social History Household Members: Family Household Members Other:: Brother Housing: Apartment Do you presently have visiting nurse or other home services: No Alcohol intake: current Alcohol intake frequency: 3 or more drinks per day Alcohol type: beer Patient Tobacco Use Status: Current everyday Tobacco user Tobacco use type: Cigarette Cigarette Packs Per Day: 0.5 Cigarettes Per Day: 10.0 Second Hand Smoke Exposure: No Use of substances other than those prescribed or required for medical reasons: No Advance Directives: No Advance Directives Information Provided: Yes service: No Current occupational status: unemployed Meds Allergies Allergy/AdvReac Type Severity Reaction Status Date / Time acetaminophen [From PERCOCET] Allergy Mild Rash Verified 09/21/20 17:29 oxycodone [From PERCOCET] Allergy Mild Rash Verified 09/21/20 17:29 Penicillins [PENICILLINS] Allergy Mild Rash Verified 09/21/20 17:29 Active Medications: Current Medications Acetaminophen (Acetaminophen 325 Mg Tablet) 650 mg PO Q6H PRN PRN Reason: Pain, Mild (Pain Scale 1-3) Albuterol Sulfate (Albuterol Sulfate 90 Mcg 8 Gm Inhaler) 2 puff INHALE Q4H PRN PRN Reason: Shortness Of Breath Aspirin (Aspirin Enteric Coated 81 Mg Tablet.) 81 mg PO DAILY [facility] Last Admin: 03/02/21 08:39 Dose: 81 mg Documented by: Carvedilol (Carvedilol 12.5 Mg Tablet) 12.5 mg PO BID [facility]; Protocol Last Admin: 03/02/21 09:31 Dose: 12.5 mg Documented by: Docusate Sodium (Docusate Sodium 100 Mg Capsule) 100 mg PO DAILY PRN PRN Reason: Constipation Enoxaparin Sodium (Enoxaparin Sodium 40 Mg/0.4 Ml Syringe) 40 mg SUBCUT Q24H [facility] Last Admin: 03/01/21 21:57 Dose: 40 mg Documented by: Fluoxetine HCl (Fluoxetine Hcl 20 Mg Capsule) 40 mg PO DAILY [facility] Last Admin: 03/02/21 08:39 Dose: 40 mg Documented by: Folic Acid (Folic Acid 1 Mg Tablet) 1 mg PO DAILY [facility] Last Admin: 03/02/21 08:39 Dose: 1 mg Documented by: Ceftriaxone Sodium 1 gm/ (Sodium Chloride) 50 mls @ 100 mls/hr IV Q24H [facility] Azithromycin 500 mg/ Sodium (Chloride) 250 mls @ 125 mls/hr IV Q24H [facility] Last Infusion: 03/02/21 02:18 Dose: Infused Documented by: Labetalol HCl (Labetalol Hcl 100 Mg/20 Ml Vial) 20 mg IVPUSH Q20M PRN PRN Reason: SBP > 160 Last Admin: 03/01/21 17:42 Dose: 20 mg Documented by: Multivitamins/Vitamin C (Multivitamin Tablet) 1 tab PO DAILY [facility] Last Admin: 03/02/21 08:39 Dose: 1 tab Documented by: Ondansetron HCl (Ondansetron Hcl 4 Mg/2 Ml Vial) 4 mg IVPUSH Q8H PRN PRN Reason: Nausea and Vomiting Oxcarbazepine (Oxcarbazepine 150 Mg Tablet) 150 mg PO TID [facility] Last Admin: 03/02/21 08:39 Dose: 150 mg Documented by: Pharmacy Consult (Consult Rx Perform Med Rec) 1 each MISCELLANE ONCE PRN PRN Reason: Consult order Sodium Chloride (0.9 % Sodium Chloride Flush 3 Ml Syringe) 3 ml IVFLUSH QSHIFT [facility] Last Admin: 03/02/21 08:40 Dose: 3 ml Documented by: Thiamine HCl (Thiamine Hcl 100 Mg Tablet) 100 mg PO DAILY [facility] Last Admin: 03/02/21 08:39 Dose: 100 mg Documented by: Home Medications Medication Instructions Recorded Confirmed Last Taken Type thiamine HCl (vitamin B1) 100 mg 1 tab PO DAILY 09/20/20 03/01/21 01/22/21 History tablet (Vitamin B-1) albuterol sulfate 90 mcg/actuation 2 puff PO Q4H PRN 12/16/20 03/01/21 01/22/21 History aerosol inhaler (ProAir HFA) multivitamin 1 tab PO DAILY 12/16/20 03/01/21 01/22/21 History aspirin 81 mg tablet,delayed 1 tab PO DAILY 01/22/21 03/01/21 01/22/21 History release fluoxetine 20 mg tablet 40 mg PO DAILY 03/01/21 03/01/21 Unknown History folic acid 1 mg tablet 1 mg PO DAILY 03/01/21 03/01/21 Unknown History oxcarbazepine 150 mg tablet 150 mg PO TID 03/01/21 03/01/21 Unknown History Physical Exam Vital Signs: Vital Signs: Last Vital Signs Temp 98.7 F 03/02/21 02:20 Pulse 88 03/02/21 10:33 Resp 20 03/02/21 10:33 BP 189/118 H 03/02/21 10:33 Pulse Ox 96 03/02/21 10:33 BMI result Body Mass Index 20.2 Const: General: no acute distress HENMT: Other: Unremarkable Neck: Neck: Yes normal visual inspection Chest: Chest palpation & inspection: normal inspection of the chest Resp: Other: Few crackles. Cardio: Palpation: normal PMI Heart sounds: S1 normal heart sound present, S2 normal heart sound present, no gallops, no murmurs and no rubs GI: Palpation (GI): Soft to palpation Back/Spine/Pelvis: Other: unremarkable Skin: Lesions: other Neuro: Cranial nerves: Yes Other cranial nerve findings present Extrem: General: Yes other Psych: Mental Status: other Objective Labs and Meds Result diagrams: 03/02/21 06:34 03/02/21 06:34 Lab results: Laboratory Results - last 24 hr 03/01/21 03/01/21 03/01/21 13:01 13:01 13:01 WBC 10.5 RBC 3.37 L Hgb 10.7 L Hct 28.7 L MCV 85.2 MCH 31.8 MCHC 37.3 H RDW 13.6 Plt Count 230 MPV 9.2 L Immature Gran % (Auto) 0.8 H Neut % (Auto) 83.2 H Lymph % (Auto) 7.7 L Dodge % (Auto) 7.7 Eos % (Auto) 0.3 Baso % (Auto) 0.3 Lymph # (Auto) 0.8 L Dodge # (Auto) 0.8 Eos # (Auto) 0.0 Baso # (Auto) 0.0 Abs Immat Gran (auto) 0.08 H Absolute Neuts (auto) 8.7 H Absolute Nucleated RBC 0.000 Nucleated RBC % (auto) 0.0 PT 11.5 INR 1.0 VBG pH VBG pCO2 VBG pO2 VBG HCO3 VBG O2 Saturation VBG Base Excess Sodium 115 L* Potassium 2.1 L* D Chloride 65 L D Carbon Dioxide 33 H Anion Gap 19 BUN 11 Creatinine 0.92 Estim Creat Clear Calc 72.6 Estimated GFR > 60 Random Glucose 112 Osmolality Lactic Acid Lactic Acid F/U @ 2Hr Calcium 9.0 D Magnesium 1.8 Total Bilirubin 0.6 AST 34 D ALT 16 Alkaline Phosphatase 178 H D Total Creatine Kinase 93 Troponin I High Sens B-Natriuretic Peptide Total Protein 6.6 Albumin 3.3 L Lipase 22 Urine Color Urine Appearance Urine pH Ur Specific [place] Urine Protein Urine Glucose (UA) Urine Ketones Urine Blood Urine Nitrite Ur Leukocyte Esterase Urine RBC Urine WBC Ur Squamous Epith Cells Urine Bacteria Urine Osmolality Urine Opiates Screen Urine Fentanyl Screen Ur Barbiturates Screen Ur Phencyclidine Scrn Ur Amphetamines Screen U Benzodiazepines Scrn Urine Cocaine Screen U Marijuana (THC) Screen Ethyl Alcohol COVID-19 ([facility]) COVID-19 [place] 03/01/21 03/01/21 03/01/21 13:01 13:01 13:01 WBC RBC Hgb Hct MCV MCH MCHC RDW Plt Count MPV Immature Gran % (Auto) Neut % (Auto) Lymph % (Auto) Dodge % (Auto) Eos % (Auto) Baso % (Auto) Lymph # (Auto) Dodge # (Auto) Eos # (Auto) Baso # (Auto) Abs Immat Gran (auto) Absolute Neuts (auto) Absolute Nucleated RBC Nucleated RBC % (auto) PT INR VBG pH VBG pCO2 VBG pO2 VBG HCO3 VBG O2 Saturation VBG Base Excess Sodium Potassium Chloride Carbon Dioxide Anion Gap BUN Creatinine Estim Creat Clear Calc Estimated GFR Random Glucose Osmolality Lactic Acid 3.4 H* Lactic Acid F/U @ 2Hr Calcium Magnesium Total Bilirubin AST ALT Alkaline Phosphatase Total Creatine Kinase Troponin I High Sens 62.0 H B-Natriuretic Peptide 1564 H Total Protein Albumin Lipase Urine Color Urine Appearance Urine pH Ur Specific [place] Urine Protein Urine Glucose (UA) Urine Ketones Urine Blood Urine Nitrite Ur Leukocyte Esterase Urine RBC Urine WBC Ur Squamous Epith Cells Urine Bacteria Urine Osmolality Urine Opiates Screen Urine Fentanyl Screen Ur Barbiturates Screen Ur Phencyclidine Scrn Ur Amphetamines Screen U Benzodiazepines Scrn Urine Cocaine Screen U Marijuana (THC) Screen Ethyl Alcohol < 10 COVID-19 ([facility]) COVID-19 [employer] Com 03/01/21 03/01/21 03/01/21 13:01 13:02 13:07 WBC RBC Hgb Hct MCV MCH MCHC RDW Plt Count MPV Immature Gran % (Auto) Neut % (Auto) Lymph % (Auto) Dodge % (Auto) Eos % (Auto) Baso % (Auto) Lymph # (Auto) Dodge # (Auto) Eos # (Auto) Baso # (Auto) Abs Immat Gran (auto) Absolute Neuts (auto) Absolute Nucleated RBC Nucleated RBC % (auto) PT INR VBG pH 7.47 H VBG pCO2 57 VBG pO2 51 VBG HCO3 42 H VBG O2 Saturation 80.0 VBG Base Excess 15.6 Sodium Potassium Chloride Carbon Dioxide Anion Gap BUN Creatinine Estim Creat Clear Calc Estimated GFR Random Glucose Osmolality 244 L Lactic Acid Lactic Acid F/U @ 2Hr Calcium Magnesium Total Bilirubin AST ALT Alkaline Phosphatase Total Creatine Kinase Troponin I High Sens B-Natriuretic Peptide Total Protein Albumin Lipase Urine Color Urine Appearance Urine pH Ur Specific [place] Urine Protein Urine Glucose (UA) Urine Ketones Urine Blood Urine Nitrite Ur Leukocyte Esterase Urine RBC Urine WBC Ur Squamous Epith Cells Urine Bacteria Urine Osmolality Urine Opiates Screen Urine Fentanyl Screen Ur Barbiturates Screen Ur Phencyclidine Scrn Ur Amphetamines Screen U Benzodiazepines Scrn Urine Cocaine Screen U Marijuana (THC) Screen Ethyl Alcohol COVID-19 ([facility]) Negative COVID-19 [employer] See Note 03/01/21 03/01/21 03/01/21 15:43 16:00 16:00 WBC RBC Hgb Hct MCV MCH MCHC RDW Plt Count MPV Immature Gran % (Auto) Neut % (Auto) Lymph % (Auto) Dodge % (Auto) Eos % (Auto) Baso % (Auto) Lymph # (Auto) Dodge # (Auto) Eos # (Auto) Baso # (Auto) Abs Immat Gran (auto) Absolute Neuts (auto) Absolute Nucleated RBC Nucleated RBC % (auto) PT INR VBG pH VBG pCO2 VBG pO2 VBG HCO3 VBG O2 Saturation VBG Base Excess Sodium 117 L* Potassium 2.1 L* Chloride 67 L Carbon Dioxide 35 H Anion Gap 17 BUN 12 Creatinine 0.84 Estim Creat Clear Calc 79.5 Estimated GFR > 60 Random Glucose 96 Osmolality Lactic Acid Lactic Acid F/U @ 2Hr 1.9 Calcium 8.5 Magnesium Total Bilirubin AST ALT Alkaline Phosphatase Total Creatine Kinase Troponin I High Sens 60.4 H B-Natriuretic Peptide Total Protein Albumin Lipase Urine Color Urine Appearance Urine pH Ur Specific [place] Urine Protein Urine Glucose (UA) Urine Ketones Urine Blood Urine Nitrite Ur Leukocyte Esterase Urine RBC Urine WBC Ur Squamous Epith Cells Urine Bacteria Urine Osmolality Urine Opiates Screen Urine Fentanyl Screen Ur Barbiturates Screen Ur Phencyclidine Scrn Ur Amphetamines Screen U Benzodiazepines Scrn Urine Cocaine Screen U Marijuana (THC) Screen Ethyl Alcohol COVID-19 ([facility]) COVID-19 [employer] [facility] 03/01/21 03/01/21 03/01/21 16:00 16:54 16:54 WBC RBC Hgb Hct MCV MCH MCHC RDW Plt Count MPV Immature Gran % (Auto) Neut % (Auto) Lymph % (Auto) Dodge % (Auto) Eos % (Auto) Baso % (Auto) Lymph # (Auto) Dodge # (Auto) Eos # (Auto) Baso # (Auto) Abs Immat Gran (auto) Absolute Neuts (auto) Absolute Nucleated RBC Nucleated RBC % (auto) PT INR VBG pH VBG pCO2 VBG pO2 VBG HCO3 VBG O2 Saturation VBG Base Excess Sodium Potassium Chloride Carbon Dioxide Anion Gap BUN Creatinine Estim Creat Clear Calc Estimated GFR Random Glucose Osmolality 240 L Lactic Acid Lactic Acid F/U @ 2Hr Calcium Magnesium Total Bilirubin AST ALT Alkaline Phosphatase Total Creatine Kinase Troponin I High Sens B-Natriuretic Peptide Total Protein Albumin Lipase Urine Color YELLOW Urine Appearance CLEAR Urine pH 6.5 Ur Specific [place] <= 1.005 Urine Protein 2+ H Urine Glucose (UA) NEG Urine Ketones NEG Urine Blood 1+ H Urine Nitrite NEG Ur Leukocyte Esterase NEG Urine RBC 0-2 Urine WBC 0 Ur Squamous Epith Cells TRACE Urine Bacteria NONE Urine Osmolality Urine Opiates Screen Not Detected Urine Fentanyl Screen Not Detected Ur Barbiturates Screen Not Detected Ur Phencyclidine Scrn Not Detected Ur Amphetamines Screen Not Detected U Benzodiazepines Scrn Not Detected Urine Cocaine Screen Not Detected U Marijuana (THC) Screen Not Detected Ethyl Alcohol COVID-19 ([facility]) COVID-19 Clin Com 03/01/21 03/01/21 03/02/21 16:55 21:17 00:17 WBC RBC Hgb Hct MCV MCH MCHC RDW Plt Count MPV Immature Gran % (Auto) Neut % (Auto) Lymph % (Auto) Dodge % (Auto) Eos % (Auto) Baso % (Auto) Lymph # (Auto) Dodge # (Auto) Eos # (Auto) Baso # (Auto) Abs Immat Gran (auto) Absolute Neuts (auto) Absolute Nucleated RBC Nucleated RBC % (auto) PT INR VBG pH VBG pCO2 VBG pO2 VBG HCO3 VBG O2 Saturation VBG Base Excess Sodium 118 L* 118 L* Potassium 3.3 D 4.4 D Chloride 72 L 77 L Carbon Dioxide 35 H 30 H Anion Gap 14 15 BUN 12 14 Creatinine 0.86 0.90 Estim Creat Clear Calc 77.7 74.2 Estimated GFR > 60 > 60 Random Glucose 112 104 Osmolality Lactic Acid Lactic Acid F/U @ 2Hr Calcium 8.3 L 7.9 L Magnesium Total Bilirubin AST ALT Alkaline Phosphatase Total Creatine Kinase Troponin I High Sens B-Natriuretic Peptide Total Protein Albumin Lipase Urine Color Urine Appearance Urine pH Ur Specific [place] Urine Protein Urine Glucose (UA) Urine Ketones Urine Blood Urine Nitrite Ur Leukocyte Esterase Urine RBC Urine WBC Ur Squamous Epith Cells Urine Bacteria Urine Osmolality 154 L Urine Opiates Screen Urine Fentanyl Screen Ur Barbiturates Screen Ur Phencyclidine Scrn Ur Amphetamines Screen U Benzodiazepines Scrn Urine Cocaine Screen U Marijuana (THC) Screen Ethyl Alcohol COVID-19 ([facility]) COVID-19 Clin Com 03/02/21 03/02/21 03/02/21 03:40 06:34 06:34 WBC 9.9 RBC 3.24 L Hgb 10.0 L Hct 28.1 L MCV 86.7 MCH 30.9 MCHC 35.6 RDW 13.7 Plt Count 236 MPV 9.6 Immature Gran % (Auto) 0.4 Neut % (Auto) 80.6 H Lymph % (Auto) 9.3 L Dodge % (Auto) 9.0 Eos % (Auto) 0.3 Baso % (Auto) 0.4 Lymph # (Auto) 0.9 L Dodge # (Auto) 0.9 Eos # (Auto) 0.0 Baso # (Auto) 0.0 Abs Immat Gran (auto) 0.04 H Absolute Neuts (auto) 7.9 Absolute Nucleated RBC 0.000 Nucleated RBC % (auto) 0.0 PT INR VBG pH VBG pCO2 VBG pO2 VBG HCO3 VBG O2 Saturation VBG Base Excess Sodium 119 L* 121 L Potassium 3.7 3.5 Chloride 80 L 79 L Carbon Dioxide 27 30 H Anion Gap 16 16 BUN 13 13 Creatinine 0.93 0.92 Estim Creat Clear Calc 71.8 72.6 Estimated GFR > 60 > 60 Random Glucose 97 102 Osmolality Lactic Acid Lactic Acid F/U @ 2Hr Calcium 7.9 L 8.2 L Magnesium Total Bilirubin AST ALT Alkaline Phosphatase Total Creatine Kinase Troponin I High Sens B-Natriuretic Peptide Total Protein Albumin Lipase Urine Color Urine Appearance Urine pH Ur Specific [place] Urine Protein Urine Glucose (UA) Urine Ketones Urine Blood Urine Nitrite Ur Leukocyte Esterase Urine RBC Urine WBC Ur Squamous Epith Cells Urine Bacteria Urine Osmolality Urine Opiates Screen Urine Fentanyl Screen Ur Barbiturates Screen Ur Phencyclidine Scrn Ur Amphetamines Screen U Benzodiazepines Scrn Urine Cocaine Screen U Marijuana (THC) Screen Ethyl Alcohol COVID-19 ([facility]) COVID-19 [employer] [facility] 03/02/21 06:34 WBC RBC Hgb Hct MCV MCH MCHC RDW Plt Count MPV Immature Gran % (Auto) Neut % (Auto) Lymph % (Auto) Dodge % (Auto) Eos % (Auto) Baso % (Auto) Lymph # (Auto) [place] # (Auto) Eos # (Auto) Baso # (Auto) Abs Immat Gran (auto) Absolute Neuts (auto) Absolute Nucleated RBC Nucleated RBC % (auto) PT INR VBG pH VBG pCO2 VBG pO2 VBG HCO3 VBG O2 Saturation VBG Base Excess Sodium Cancelled Potassium Cancelled Chloride Cancelled Carbon Dioxide Cancelled Anion Gap Cancelled BUN Cancelled Creatinine Cancelled Estim Creat Clear Calc Cancelled Estimated GFR Cancelled Random Glucose Cancelled Osmolality Lactic Acid Lactic Acid F/U @ 2Hr Calcium Cancelled Magnesium Total Bilirubin AST ALT Alkaline Phosphatase Total Creatine Kinase Troponin I High Sens B-Natriuretic Peptide Total Protein Albumin Lipase Urine Color Urine Appearance Urine pH Ur Specific [place] Urine Protein Urine Glucose (UA) Urine Ketones Urine Blood Urine Nitrite Ur Leukocyte Esterase Urine RBC Urine WBC Ur Squamous Epith Cells Urine Bacteria Urine Osmolality Urine Opiates Screen Urine Fentanyl Screen Ur Barbiturates Screen Ur Phencyclidine Scrn Ur Amphetamines Screen U Benzodiazepines Scrn Urine Cocaine Screen U Marijuana (THC) Screen Ethyl Alcohol COVID-19 ([facility]) COVID-19 Clin Com ECG Interpretation: EKG shows baseline artifact; sinus rhythm with possibly some PACs. Left ventricular hypertrophy. Nonspecific ST-T changes. Imaging Radiologist's impression: Impressions Femur X-Ray 03/01/21 12:28 IMPRESSION: Unremarkable bilateral femur exam. Femur X-Ray 03/01/21 12:28 IMPRESSION: Unremarkable bilateral femur exam. Head CT 03/01/21 17:19 IMPRESSION: * No acute intracranial pathology. * Severe chronic white matter small vessel ischemic changes with marked low-attenuation changes within the midbrain and thaddeus, stable from January 2021 but worse from December 2020. As discussed previously, this may suggest underlying toxic/metabolic abnormality. MRI brain without and with contrast could lend further specificity. * No cervical spine fracture or malalignment. Cervical Spine CT 03/01/21 17:20 IMPRESSION: * No acute intracranial pathology. * Severe chronic white matter small vessel ischemic changes with marked low-attenuation changes within the midbrain and thaddeus, stable from January 2021 but worse from December 2020. As discussed previously, this may suggest underlying toxic/metabolic abnormality. MRI brain without and with contrast could lend further specificity. * No cervical spine fracture or malalignment. Chest CTA 03/01/21 17:21 IMPRESSION: * No pulmonary embolism. * Moderate right and small left pleural effusions and accompanying atelectasis. * There are some patchy reticular and groundglass opacities within left upper and lower lobes suspicious for focal areas of pneumonitis. * Moderate to severe emphysema. * Left colonic diverticulosis without evidence of diverticulitis. * Severe atherosclerotic vascular disease with triple vessel coronary calcifications and severe stenosis of the left renal artery resulting in chronic atrophy of the left kidney with respect to the right, with corresponding decreased enhancement of the left kidney with respect to the right. * Severe disc degenerative disease at L5-S1 with endplate erosive changes and accompanying sclerosis, essentially new since September 2019. While accelerated adjacent segment disease related to spinal fusion is considered, spondylodiscitis could have a similar appearance. Correlate with inflammatory markers and if there is persistent clinical concern for spinal infection, consider contrast-enhanced MRI for further evaluation. VTE: negative Abdomen/Pelvis CT 03/01/21 17:23 IMPRESSION: * No pulmonary embolism. * Moderate right and small left pleural effusions and accompanying atelectasis. * There are some patchy reticular and groundglass opacities within left upper and lower lobes suspicious for focal areas of pneumonitis. * Moderate to severe emphysema. * Left colonic diverticulosis without evidence of diverticulitis. * Severe atherosclerotic vascular disease with triple vessel coronary calcifications and severe stenosis of the left renal artery resulting in chronic atrophy of the left kidney with respect to the right, with corresponding decreased enhancement of the left kidney with respect to the right. * Severe disc degenerative disease at L5-S1 with endplate erosive changes and accompanying sclerosis, essentially new since September 2019. While accelerated adjacent segment disease related to spinal fusion is considered, spondylodiscitis could have a similar appearance. Correlate with inflammatory markers and if there is persistent clinical concern for spinal infection, consider contrast-enhanced MRI for further evaluation. VTE: negative Assessment and Plan (1) Hypertensive urgency: Status: Acute (2) Alcoholism: Status: Acute (3) Elevated brain natriuretic peptide (BNP) level: Status: Acute (4) Atherosclerotic cardiovascular disease: Status: Acute In the chest CT scan performed, there is evidence of severe atherosclerotic disease and triple-vessel coronary artery calcification noted. There is also severe stenosis of the left renal artery resulting in chronic atrophy of the left kidney. Overall, his blood pressure is markedly high at this time. We can safely use Coreg from cardiac standpoint which would help the blood pressure. Amlodipine should also be safe. With regard to his CATA-i/ARB will need to check with renal considering renal artery stenosis as well as a history of electrolyte issues. Otherwise echocardiogram can be completed for LV function assessment. His symptoms are quite vague but based on CT scan findings, he seems to have three-vessel coronary artery calcification. At some point, will consider ischemia workup but I am not entirely clear as to how amenable he will be and also how compliant he will be. At least for the time being, use low-dose aspirin and statins. Slight troponin leak is probably from uncontrolled hypertension with background of coronary disease. Elevated cardiac BNP could be from LV dysfunction for which we will obtain echocardiogram as above. Procedures Date of Service Date of Service: 03/02/21
--- NOTE | 2021-03-02 12:40 | PC.NURSE ---
Pt received from main ed: Pt AOx4 and offers no complaints at this time. Pt has normal heart sounds and dimished lung sounds. Pt abd flat and mildly tender throughout. Neves catheter in tact and draining yellow output.
[2021-03-02 12:53] LABS: Anion Gap 14 (12-20); Carbon Dioxide 32 mmol/L (22-29); Chloride 81 mmol/L (96-108); Potassium 3.5 mmol/L (3.3-5.1); Sodium 123 mmol/L (135-145)
--- NOTE | 2021-03-02 14:36 | CONS_ITS ---
DATE OF SERVICE: 03/02/2021 REASON FOR CONSULTATION: I was asked to see the patient to assist in evaluation and management of patient's hyponatremia. He came in yesterday afternoon with a serum sodium of 115, this morning it is up to 121. Reviewing his records, he has had recurrent episodes of hyponatremia. He was hospitalized in January with a sodium of 122 and back in December with a serum sodium of 115. Previous admissions suggest he had a combination of low solute intake and probably inappropriate ADH related to some of his medications playing a role on the backdrop of being a heavy alcohol abuser. HISTORY OF PRESENT ILLNESS: In summary, he is a 60-year-old gentleman with multiple chronic medical problems including alcohol abuse, COPD, depression, hepatitis C. As mentioned, was recently hospitalized last month for an episode of hyponatremia, who now presents with abdominal pain. He also has a history of resistant hypertension, relatively severe. On admission, he had blood pressure of 210/120 and a serum sodium of 115 as mentioned, whereas previous sodium at the time of discharge on his last admission was 131. Potassium of admission now is 2.1. He has had episodes of recurrent hypokalemia. He had a CAT scan of the abdomen and pelvis, which showed diverticulosis and also significant calcification of the left renal artery with atrophy of the left kidney. Presently, he is feeling better. He has been getting some IV fluids, both potassium replacement and some normal saline. MEDICAL HISTORY: Notable for recurrent episodes of hypokalemia and hyponatremia, cerebral vascular disease, COPD, history of heavy alcohol abuse as well as hepatitis C. There is mention made of heart disease, seizure disorder, details of this are not clear and a history of hypertension as mentioned above, which has been hard to control at times. MEDICATIONS: His medications on admission are listed as including aspirin, thiamine, fluoxetine, oxcarbazepine, and folate. His current medications are noted in the MAR. SOCIAL HISTORY: He has a heavy alcohol history. Cigarette smoker. Denies illicit drug use. He denies taking NSAIDs. FAMILY HISTORY: Noncontributory. REVIEW OF SYSTEMS: As noted above. PHYSICAL EXAMINATION: VITAL SIGNS: Blood pressure of 190/118. As mentioned, he was 210/120 when he first came in. GENERAL: He looks unkempt. HEAD: Atraumatic and normocephalic. NECK: No discernible JVD. LUNGS: Breath sounds bilaterally, decreased at the bases. CARDIAC: Regular rate and rhythm without rub. ABDOMEN: Soft, nontender. EXTREMITIES: Show no edema. LABORATORY DATA: From 6 a.m. shows a sodium 121, potassium 3.5, chloride 79, bicarb 30, BUN 13, creatinine 0.92, calcium 8.2. On admission at 1 p.m., his sodium was 115, potassium was 2.1, serum osms 240. He had urine studies done, which showed specific gravity of less than 1.005 and a urine osmolality of 154. On previous admissions, his urine osms have ranged anywhere from 245 to 415 and urine sodiums have ranged anywhere from less than 20 to 52. IMPRESSION: 60-year-old alcohol abuser, readmitted to the hospital with severe hyponatremia along with hypokalemia and severe hypertension. 1. Severe hyponatremia. His volume status is difficult to discern. He does appear to be slightly intravascularly volume depleted despite his market hypertension. He does not look volume overloaded. Therefore, we would say he is either euvolemic or hypovolemic hyponatremia. He has multiple factors contributing to his hyponatremia including poor solute intake, which is probably playing a big role based on the urine osmo of 154. Inappropriate ADH may be an intermittent issue related to his medications, although he is on Prozac, which can be associated with it. In the past, he was on oxcarbazepine, which is highly associated with SIADH. He may have excess p.o. fluid intake. It is unclear what his beverage of choice is, but beer potomania if he drinks lot of beer would certainly be a contributing role with high p.o. fluid intake. Focus of care is to avoid too rapid correction of serum sodium with the goal being 4 to 6 mEq per 24 hours. 2. Hypokalemia. This is relatively severe hypokalemia and may be related to his alcohol abuse, which often could be associated with secondary increase in Haldol. Alternatively, he is markedly hypertensive and hypertension associated with hypokalemia does raise concern about primary hyperaldo and in his case, possibility of renal artery stenosis given the CAT scan findings causing hyper-renin and hyperaldo state. 3. Alcohol abuse. SUGGESTIONS: At this time include stop his IV fluids and get stat lytes to make sure his serum sodium does not correct too fast. Try and take him off all medications that can be associated with ADH secretion such as antiseizure medications and antidepressant medications. Cautious potassium replacement as when we replace potassium, the serum sodium can go up. Increase his blood pressure medications. We will see about doing a CTA on his renal arteries to see if he is a candidate for angioplasty and stenting given the severity of his hypertension. Increase his blood pressure medications, can place him on an ARB. We will check an adelina/renin ratio, it was supposed to be done on last admission, but was not done. We will follow the patient closely with the team as we monitor serum sodium and slowly correct his serum sodium. MD HÉCTOR Goodwin/SONDRA / [phone]
[2021-03-02] MEDS: cefTRIAXone sodium 1 GM in 0.9 % Sodium Chloride 50 ML IV (15:13)
--- NOTE | 2021-03-02 15:44 | P.PNIM_ITS ---
Subjective Subjective Date of Service: 03/02/21 Interval History: no acute issues overnight; incontinent of feces Review of Systems denies chest pain Denies shortness of breath Denies nausea vomiting diarrhea Physical Exam Vital Signs: Vital Signs: Last Vital Signs Temp 97.8 F 03/02/21 15:11 Pulse 81 03/02/21 15:11 Resp 22 H 03/02/21 15:11 BP 149/96 H 03/02/21 15:11 Pulse Ox 95 03/02/21 12:39 BMI result Body Mass Index 20.2 Const: Other: vague but no acute distress Resp: Other: clear to auscultation bilaterally with scant crackles at bases Cardio: Other: no S4; positive S1-S2; no S3 murmurs rubs or gallop GI: Other: soft nontender nondistended with normoactive bowel sounds Neuro: Other: cranial nerves 2-12 grossly intact as tested. Moves all extremities with equal power Extrem: Other: no edema bilateral Objective Data Active Medications Acetaminophen (Acetaminophen 325 Mg Tablet) 650 mg PO Q6H PRN PRN Reason: Pain, Mild (Pain Scale 1-3) Albuterol Sulfate (Albuterol Sulfate 90 Mcg 8 Gm Inhaler) 2 puff INHALE Q4H PRN PRN Reason: Shortness Of Breath Aspirin (Aspirin Enteric Coated 81 Mg Tablet.) 81 mg PO DAILY [facility] Last Admin: 03/02/21 08:39 Dose: 81 mg Documented by: CRISTA Carvedilol (Carvedilol 12.5 Mg Tablet) 12.5 mg PO BID [facility]; Protocol Last Admin: 03/02/21 09:31 Dose: 12.5 mg Documented by: CRISTA Docusate Sodium (Docusate Sodium 100 Mg Capsule) 100 mg PO DAILY PRN PRN Reason: Constipation Enoxaparin Sodium (Enoxaparin Sodium 40 Mg/0.4 Ml Syringe) 40 mg SUBCUT Q24H [facility] Last Admin: 03/01/21 21:57 Dose: 40 mg Documented by: ALEJANDRO Fluoxetine HCl (Fluoxetine Hcl 20 Mg Capsule) 40 mg PO DAILY [facility] Last Admin: 03/02/21 08:39 Dose: 40 mg Documented by: CRISTA Folic Acid (Folic Acid 1 Mg Tablet) 1 mg PO DAILY [facility] Last Admin: 03/02/21 08:39 Dose: 1 mg Documented by: CRISTA Ceftriaxone Sodium 1 gm/ (Sodium Chloride) 50 mls @ 100 mls/hr IV Q24H [facility] Last Admin: 03/02/21 15:13 Dose: 100 mls/hr Documented by: LINDA Azithromycin 500 mg/ Sodium (Chloride) 250 mls @ 125 mls/hr IV Q24H [facility] Last Infusion: 03/02/21 02:18 Dose: 125 mls/hr Documented by: AMI Labetalol HCl (Labetalol Hcl 100 Mg/20 Ml Vial) 20 mg IVPUSH Q20M PRN PRN Reason: SBP > 160 Last Admin: 03/01/21 17:42 Dose: 20 mg Documented by: TAD Multivitamins/Vitamin C (Multivitamin Tablet) 1 tab PO DAILY [facility] Last Admin: 03/02/21 08:39 Dose: 1 tab Documented by: CRISTA Ondansetron HCl (Ondansetron Hcl 4 Mg/2 Ml Vial) 4 mg IVPUSH Q8H PRN PRN Reason: Nausea and Vomiting Oxcarbazepine (Oxcarbazepine 150 Mg Tablet) 150 mg PO TID [facility] Last Admin: 03/02/21 15:13 Dose: 150 mg Documented by: LINDA Pharmacy Consult (Consult Rx Perform Med Rec) 1 each MISCELLANE ONCE PRN PRN Reason: Consult order Sodium Chloride (0.9 % Sodium Chloride Flush 3 Ml Syringe) 3 ml IVFLUSH QSHIFT [facility] Last Admin: 03/02/21 08:40 Dose: 3 ml Documented by: CRISTA Thiamine HCl (Thiamine Hcl 100 Mg Tablet) 100 mg PO DAILY [facility] Last Admin: 03/02/21 08:39 Dose: 100 mg Documented by: CRISTA Labs CBC & Chem 7: 03/02/21 06:34 03/02/21 12:20 Labs: Laboratory Results - last 24 hr 03/01/21 03/01/21 03/01/21 15:43 16:00 16:00 MCV MCH MCHC RDW Plt Count MPV Immature Gran % (Auto) Neut % (Auto) Lymph % (Auto) Sullivan % (Auto) Eos % (Auto) Baso % (Auto) Lymph # (Auto) Sullivan # (Auto) Eos # (Auto) Baso # (Auto) Abs Immat Gran (auto) Absolute Neuts (auto) Absolute Nucleated RBC Nucleated RBC % (auto) Anion Gap 17 Estim Creat Clear Calc 79.5 Estimated GFR > 60 Random Glucose 96 Osmolality Lactic Acid F/U @ 2Hr 1.9 Calcium 8.5 Troponin I High Sens 60.4 H Urine Color Urine Appearance Urine pH Ur Specific [place] Urine Protein Urine Glucose (UA) Urine Ketones Urine Blood Urine Nitrite Ur Leukocyte Esterase Urine RBC Urine WBC Ur Squamous Epith Cells Urine Bacteria Urine Osmolality Urine Opiates Screen Urine Fentanyl Screen Ur Barbiturates Screen Ur Phencyclidine Scrn Ur Amphetamines Screen U Benzodiazepines Scrn Urine Cocaine Screen U Marijuana (THC) Screen 03/01/21 03/01/21 03/01/21 16:00 16:54 16:54 MCV MCH MCHC RDW Plt Count MPV Immature Gran % (Auto) Neut % (Auto) Lymph % (Auto) Sullivan % (Auto) Eos % (Auto) Baso % (Auto) Lymph # (Auto) Sullivan # (Auto) Eos # (Auto) Baso # (Auto) Abs Immat Gran (auto) Absolute Neuts (auto) Absolute Nucleated RBC Nucleated RBC % (auto) Anion Gap Estim Creat Clear Calc Estimated GFR Random Glucose Osmolality 240 L Lactic Acid F/U @ 2Hr Calcium Troponin I High Sens Urine Color YELLOW Urine Appearance CLEAR Urine pH 6.5 Ur Specific [place] <= 1.005 Urine Protein 2+ H Urine Glucose (UA) NEG Urine Ketones NEG Urine Blood 1+ H Urine Nitrite NEG Ur Leukocyte Esterase NEG Urine RBC 0-2 Urine WBC 0 Ur Squamous Epith Cells TRACE Urine Bacteria NONE Urine Osmolality Urine Opiates Screen Not Detected Urine Fentanyl Screen Not Detected Ur Barbiturates Screen Not Detected Ur Phencyclidine Scrn Not Detected Ur Amphetamines Screen Not Detected U Benzodiazepines Scrn Not Detected Urine Cocaine Screen Not Detected U Marijuana (THC) Screen Not Detected 03/01/21 03/01/21 03/02/21 16:55 21:17 00:17 MCV MCH MCHC RDW Plt Count MPV Immature Gran % (Auto) Neut % (Auto) Lymph % (Auto) Sullivan % (Auto) Eos % (Auto) Baso % (Auto) Lymph # (Auto) Sullivan # (Auto) Eos # (Auto) Baso # (Auto) Abs Immat Gran (auto) Absolute Neuts (auto) Absolute Nucleated RBC Nucleated RBC % (auto) Anion Gap 14 15 Estim Creat Clear Calc 77.7 74.2 Estimated GFR > 60 > 60 Random Glucose 112 104 Osmolality Lactic Acid F/U @ 2Hr Calcium 8.3 L 7.9 L Troponin I High Sens Urine Color Urine Appearance Urine pH Ur Specific [place] Urine Protein Urine Glucose (UA) Urine Ketones Urine Blood Urine Nitrite Ur Leukocyte Esterase Urine RBC Urine WBC Ur Squamous Epith Cells Urine Bacteria Urine Osmolality 154 L Urine Opiates Screen Urine Fentanyl Screen Ur Barbiturates Screen Ur Phencyclidine Scrn Ur Amphetamines Screen U Benzodiazepines Scrn Urine Cocaine Screen U Marijuana (THC) Screen 03/02/21 03/02/21 03/02/21 03:40 06:34 06:34 MCV 86.7 MCH 30.9 MCHC 35.6 RDW 13.7 Plt Count 236 MPV 9.6 Immature Gran % (Auto) 0.4 Neut % (Auto) 80.6 H Lymph % (Auto) 9.3 L Sullivan % (Auto) 9.0 Eos % (Auto) 0.3 Baso % (Auto) 0.4 Lymph # (Auto) 0.9 L Sullivan # (Auto) 0.9 Eos # (Auto) 0.0 Baso # (Auto) 0.0 Abs Immat Gran (auto) 0.04 H Absolute Neuts (auto) 7.9 Absolute Nucleated RBC 0.000 Nucleated RBC % (auto) 0.0 Anion Gap 16 16 Estim Creat Clear Calc 71.8 72.6 Estimated GFR > 60 > 60 Random Glucose 97 102 Osmolality Lactic Acid F/U @ 2Hr Calcium 7.9 L 8.2 L Troponin I High Sens Urine Color Urine Appearance Urine pH Ur Specific [place] Urine Protein Urine Glucose (UA) Urine Ketones Urine Blood Urine Nitrite Ur Leukocyte Esterase Urine RBC Urine WBC Ur Squamous Epith Cells Urine Bacteria Urine Osmolality Urine Opiates Screen Urine Fentanyl Screen Ur Barbiturates Screen Ur Phencyclidine Scrn Ur Amphetamines Screen U Benzodiazepines Scrn Urine Cocaine Screen U Marijuana (THC) Screen 03/02/21 03/02/21 06:34 12:20 MCV MCH MCHC RDW Plt Count MPV Immature Gran % (Auto) Neut % (Auto) Lymph % (Auto) Sullivan % (Auto) Eos % (Auto) Baso % (Auto) Lymph # (Auto) Sullivan # (Auto) Eos # (Auto) Baso # (Auto) Abs Immat Gran (auto) Absolute Neuts (auto) Absolute Nucleated RBC Nucleated RBC % (auto) Anion Gap Cancelled 14 Estim Creat Clear Calc Cancelled Estimated GFR Cancelled Random Glucose Cancelled Osmolality Lactic Acid F/U @ 2Hr Calcium Cancelled Troponin I High Sens Urine Color Urine Appearance Urine pH Ur Specific [place] Urine Protein Urine Glucose (UA) Urine Ketones Urine Blood Urine Nitrite Ur Leukocyte Esterase Urine RBC Urine WBC Ur Squamous Epith Cells Urine Bacteria Urine Osmolality Urine Opiates Screen Urine Fentanyl Screen Ur Barbiturates Screen Ur Phencyclidine Scrn Ur Amphetamines Screen U Benzodiazepines Scrn Urine Cocaine Screen U Marijuana (THC) Screen Microbiology Microbiology Results: Microbiology 03/01/21 13:01 Blood Culture - Preliminary Blood - Venous No growth after 24 hours. 03/01/21 13:01 Blood Culture - Preliminary Blood - Venous No growth after 24 hours. Assessment and Plan (1) Hypertensive urgency: Status: Acute (2) Acute hyponatremia: Status: Acute (3) Acute hypokalemia: Status: Acute Assessment and Plan: This is a 60-year-old male with past medical history of alcohol abuse with previous admissions for hypernatremia presents to the hospital found to have hypokalemia and hyponatremia 1.Hypernatremia Slowly resolving. IVF's D/C'd . Repeat Na+ 123 @1220. Will repeat at 1800. 2.Hypokalemia Repleted. As per renal, will avoid aggressive K+ repletion 3.Elevated BNP ; query CHF on CT. Examines euvolemic...Await Echo 4.Hypertensive urgency Improved with Labetalol/Hydralazine. Coreg added...will add ARB. 5. EToH abuse Phenobarb protocol..Continue Thiamine/Folate DVT prophylaxis: Lovenox Quality Stroke Does the patient have a stroke diagnosis?: No VTE Prior VTE?: No VTE Risk Level:: Medical - moderate - high VTE Device Contraindication: Treatment Not Indicated VTE Drug Contraindication: N/A - Med Ordered
[2021-03-02 17:47] LABS: Anion Gap 13 (12-20); Carbon Dioxide 31 mmol/L (22-29); Chloride 81 mmol/L (96-108); Potassium 3.9 mmol/L (3.3-5.1); Sodium 121 mmol/L (135-145)
[2021-03-02] MEDS: iohexoL 350 MG/ML 100 ML INFUS..BTL IV (17:49)
[2021-03-02] MEDS: Enoxaparin Sodium 40 MG/0.4 ML SYRINGE SUBCUT (22:02)
[2021-03-02] MEDS: Albuterol Sulfate 90 MCG 8 GM INHALER 2 PUFF INHALE (22:13)
[2021-03-03] VITALS (9 sets, daily range): BP systolic 102–199; BP diastolic 63–117; PULSE 66–83; RESP 17–27; TEMP 36.6; O2SAT 89–99
[2021-03-03 00:57] LABS: Anion Gap 13 (12-20); Carbon Dioxide 30 mmol/L (22-29); Chloride 83 mmol/L (96-108); Potassium 3.2 mmol/L (3.3-5.1); Sodium 123 mmol/L (135-145)
[2021-03-03] MEDS: Albuterol Sulfate 90 MCG 8 GM INHALER 2 PUFF INHALE (04:11)
[2021-03-03 07:26] LABS: MANUAL DIFF FLAG NO
[2021-03-03 07:39] LABS: Basophils Absolute Auto 0.1 X10*3/uL (0.0-0.2); Basophils Percent Auto 0.8 % (0-2); Eosinophils Absolute Auto 0.2 X10*3/uL (0.0-0.4); Eosinophils Percent Auto 2.2 % (0-4); Hemoglobin 9.3 g/dl (14.0-18.0); Imm Gran Abs Auto 0.04 X10*3/uL (0.00-0.03); Imm Gran Pct Auto 0.5 % (0.0-0.4); Lymphocytes Absolute Auto 0.9 X10*3/uL (1.2-4.9); Lymphocytes Percent Auto 10.4 % (20-40); Mean Corpuscular HGB Conc 34.4 g/dl (31.0-36.0); Mean Corpuscular Hemoglobin 31.1 pg (27.0-33.0); Mean Corpuscular Volume 90.3 fL (80.0-98.0); Monocytes Percent Auto 11.9 % (2-11); Neutrophils Absolute Auto 6.4 x10*3/uL (2.0-8.3); Neutrophils Percent Auto 74.2 % (45-73); Platelet Count 184 X10*3/uL (160-400); Red Blood Count 2.99 X10*6/uL (4.60-5.80); Red Cell Distribution Width 14.2 % (11.0-16.0); White Blood Count 8.6 X10*3/uL (4.8-10.8)
[2021-03-03 08:19] LABS: Alanine Aminotransferase 15 U/L (0-40); Albumin Level 2.9 g/dL (3.5-5.0); Alkaline Phosphatase 124 U/L (39-117); Anion Gap 14 (12-20); Aspartate Amino Transferase 31 U/L (5-37); Bilirubin Total 0.4 mg/dL (0.0-1.0); Blood Urea Nitrogen 15 mg/dL (9-16); Calcium 8.1 mg/dL (8.4-10.2); Carbon Dioxide 29 mmol/L (22-29); Chloride 84 mmol/L (96-108); Creatinine Clr Calc Pharmacy 54.7; Estimated Glomerular Filt Rate > 60; Glucose Fasting 104 mg/dL (60-99); Potassium 3.4 mmol/L (3.3-5.1); Sodium 124 mmol/L (135-145); Total Protein 5.5 g/dL (6.5-8.0)
[2021-03-03] MEDS: Aspirin Enteric Coated 81 MG TABLET.DR PO (09:03)
[2021-03-03] MEDS: FLUoxetine HCl 20 MG CAPSULE 40 MG PO (09:03)
[2021-03-03] MEDS: Multivitamin TABLET 1 TAB PO (09:03)
[2021-03-03] MEDS: Losartan Potassium 25 MG TABLET PO (09:04)
[2021-03-03] MEDS: carvediloL 12.5 MG TABLET PO ×2 (09:04→21:56)
[2021-03-03] MEDS: 0.9 % Sodium Chloride Flush 3 ML SYRINGE IVFLUSH (09:04)
[2021-03-03] MEDS: Thiamine HCL 100 MG TABLET PO (09:04)
[2021-03-03] MEDS: OXcarbazepine 150 MG TABLET PO ×3 (09:04→21:56)
[2021-03-03] MEDS: Folic Acid 1 MG TABLET PO (09:05)
--- NOTE | 2021-03-03 09:15 | PC.NURSE ---
pt alert and oriented, skin appropriate for ethnicity, pt denies pain/sob, sinus on the monitor Neves in place,. draining about 150ml of pretty dark urine, light isacc
[2021-03-03 10:52] LABS: Uric Acid 5.9 mg/dL (3.4-7.0)
--- NOTE | 2021-03-03 11:49 | P.PNCA_ITS ---
Subjective Subjective Date of Service: 03/03/21 Interval history: Denies any cardiac complaints. Review of Systems Review of Systems Yes all other systems are reviewed and are negative Cardiovascular: Reports as per HPI, Reports no additional cardiovascular complaints, Denies acrocyanosis, Denies cool extremities, Denies painful fingertips, Denies chest pain, Denies chest pain at rest, Denies diaphoresis, Denies syncope, Denies irregular heart rhythm, Denies claudication, Denies leg edema, Denies lightheadedness, Denies palpitations and Denies dyspnea Respiratory: Denies dyspnea Denies syncope Endocrine: Denies palpitations Physical Exam Vital Signs: Last Vital Signs Temp 97.8 F 03/02/21 15:11 Pulse 66 03/03/21 11:34 Resp 18 03/03/21 11:34 BP 126/74 03/03/21 11:34 Pulse Ox 99 03/03/21 09:01 BMI result Body Mass Index 20.2 Const General: no acute distress HENMI Other: Unremarkable Neck Neck: Yes normal visual inspection Chest Chest palpation & inspection: normal inspection of the chest Resp Other: Few crackles. Cardio Palpation: normal PMI Heart sounds: S1 normal heart sound present, S2 normal heart sound present, no gallops, no murmurs and no rubs GI Palpation (GI): Soft to palpation Back/Spine/Pelvis Other: unremarkable Skin Lesions: other Neuro Cranial nerves: Yes Other cranial nerve findings present Extrem General: Yes other Psych Mental Status: other Objective Labs and Meds Result diagrams: 03/03/21 06:50 03/03/21 06:50 Lab results: Laboratory Results - last 24 hr 03/02/21 03/02/21 03/03/21 12:20 17:10 00:24 WBC RBC Hgb Hct MCV MCH MCHC RDW Plt Count MPV Immature Gran % (Auto) Neut % (Auto) Lymph % (Auto) Cook % (Auto) Eos % (Auto) Baso % (Auto) Lymph # (Auto) Cook # (Auto) Eos # (Auto) Baso # (Auto) Abs Immat Gran (auto) Absolute Neuts (auto) Absolute Nucleated RBC Nucleated RBC % (auto) Sodium 123 L 121 L 123 L Potassium 3.5 3.9 3.2 L Chloride 81 L 81 L 83 L Carbon Dioxide 32 H 31 H 30 H Anion Gap 14 13 13 BUN Creatinine Estim Creat Clear Calc Estimated GFR Fasting Glucose Uric Acid Calcium Total Bilirubin AST ALT Alkaline Phosphatase Total Protein Albumin 03/03/21 03/03/21 06:50 06:50 WBC 8.6 RBC 2.99 L Hgb 9.3 L Hct 27.0 L MCV 90.3 MCH 31.1 MCHC 34.4 RDW 14.2 Plt Count 184 MPV 9.0 L Immature Gran % (Auto) 0.5 H Neut % (Auto) 74.2 H Lymph % (Auto) 10.4 L Cook % (Auto) 11.9 H Eos % (Auto) 2.2 Baso % (Auto) 0.8 Lymph # (Auto) 0.9 L Cook # (Auto) 1.0 Eos # (Auto) 0.2 Baso # (Auto) 0.1 Abs Immat Gran (auto) 0.04 H Absolute Neuts (auto) 6.4 Absolute Nucleated RBC 0.000 Nucleated RBC % (auto) 0.0 Sodium 124 L Potassium 3.4 Chloride 84 L Carbon Dioxide 29 Anion Gap 14 BUN 15 Creatinine 1.22 Estim Creat Clear Calc 54.7 Estimated GFR > 60 Fasting Glucose 104 H Uric Acid 5.9 Calcium 8.1 L Total Bilirubin 0.4 AST 31 ALT 15 Alkaline Phosphatase 124 H D Total Protein 5.5 L Albumin 2.9 L Imaging Radiologist's impression: Impressions Abdomen CTA 03/02/21 17:54 IMPRESSION: * There is 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 * Right renal artery widely patent. * Left gastric artery originates directly from the aorta and while patent shows diminished opacification which is of unclear clinical significance. * Moderate right and small moderate left pleural effusions, increased in size on the left since the prior exam. * Moderate to severe emphysema. * Severe disc degenerative disease at L5-S1 with endplate erosive changes and accompanying sclerosis, essentially new since September 2019. While accelerated adjacent segment disease related to spinal fusion is considered, spondylodiscitis could have a similar appearance. Correlate with inflammatory markers and if there is persistent clinical concern for spinal infection, consider contrast-enhanced MRI for further evaluation. Progress Note: A&P Assessment and plan (1) Hypertensive urgency: Status: Acute (2) Alcoholism: Status: Acute (3) Elevated brain natriuretic peptide (BNP) level: Status: Acute (4) Atherosclerotic cardiovascular disease: Status: Acute Assessment and Plan: In the chest CT scan performed, there is evidence of severe atherosclerotic disease and triple-vessel coronary artery calcification noted. Echocardiogram with slight LV dysfunction and inferior/inferolateral hypokinesis and basal inferior akinesis. He also had moderate mitral annular calcification. We can treat him for stable coronary artery disease. Not clear how much he will be compliant as he is also homeless without much of insight but ideally would be aspirin and some statins unless there is contraindication from alcohol-induced liver disease. His blood pressure was quite high upon arrival but much improved now. Current regimen includes carvedilol, losartan. With regard to concern for renal artery stenosis, director of in service education following. Due to homelessness, alcoholism, lack of compliance will hold off on ischemia workup. Medical management only. Slight troponin leak is probably from uncontrolled hypertension with background of coronary disease. Elevated cardiac BNP could be from LV dysfunction/uncontrolled HTN. Discussed with . Fall Risk Details Current Medications: Current Medications Acetaminophen (Acetaminophen 325 Mg Tablet) 650 mg PO Q6H PRN PRN Reason: Pain, Mild (Pain Scale 1-3) Albuterol Sulfate (Albuterol Sulfate 90 Mcg 8 Gm Inhaler) 2 puff INHALE Q4H PRN PRN Reason: Shortness Of Breath Last Admin: 03/03/21 04:11 Dose: 2 puff Documented by: Aspirin (Aspirin Enteric Coated 81 Mg Tablet.) 81 mg PO DAILY [facility] Last Admin: 03/03/21 09:03 Dose: 81 mg Documented by: Carvedilol (Carvedilol 12.5 Mg Tablet) 12.5 mg PO BID [facility]; Protocol Last Admin: 03/03/21 09:04 Dose: 12.5 mg Documented by: Docusate Sodium (Docusate Sodium 100 Mg Capsule) 100 mg PO DAILY PRN PRN Reason: Constipation Enoxaparin Sodium (Enoxaparin Sodium 40 Mg/0.4 Ml Syringe) 40 mg SUBCUT Q24H [facility] Last Admin: 03/02/21 22:02 Dose: 40 mg Documented by: Fluoxetine HCl (Fluoxetine Hcl 20 Mg Capsule) 40 mg PO DAILY [facility] Last Admin: 03/03/21 09:03 Dose: 40 mg Documented by: Folic Acid (Folic Acid 1 Mg Tablet) 1 mg PO DAILY [facility] Last Admin: 03/03/21 09:05 Dose: 1 mg Documented by: Ceftriaxone Sodium 1 gm/ (Sodium Chloride) 50 mls @ 100 mls/hr IV Q24H [facility] Last Infusion: 03/02/21 19:23 Dose: Infused Documented by: Azithromycin 500 mg/ Sodium (Chloride) 250 mls @ 125 mls/hr IV Q24H [facility] Last Infusion: 03/03/21 00:39 Dose: Infused Documented by: Labetalol HCl (Labetalol Hcl 100 Mg/20 Ml Vial) 20 mg IVPUSH Q20M PRN PRN Reason: SBP > 160 Last Admin: 03/01/21 17:42 Dose: 20 mg Documented by: Losartan Potassium (Losartan Potassium 25 Mg Tablet) 25 mg PO DAILY [facility]; Prot ocol Last Admin: 03/03/21 09:04 Dose: 25 mg Documented by: Multivitamins/Vitamin C (Multivitamin Tablet) 1 tab PO DAILY [facility] Last Admin: 03/03/21 09:03 Dose: 1 tab Documented by: Ondansetron HCl (Ondansetron Hcl 4 Mg/2 Ml Vial) 4 mg IVPUSH Q8H PRN PRN Reason: Nausea and Vomiting Oxcarbazepine (Oxcarbazepine 150 Mg Tablet) 150 mg PO TID [facility] Last Admin: 03/03/21 09:04 Dose: 150 mg Documented by: Pharmacy Consult (Consult Rx Perform Med Rec) 1 each MISCELLANE ONCE PRN PRN Reason: Consult order Sodium Chloride (0.9 % Sodium Chloride Flush 3 Ml Syringe) 3 ml IVFLUSH QSHIFT [facility] Last Admin: 03/03/21 09:04 Dose: 3 ml Documented by: Thiamine HCl (Thiamine Hcl 100 Mg Tablet) 100 mg PO DAILY [facility] Last Admin: 03/03/21 09:04 Dose: 100 mg Documented by: Time Spent With Patient Time: Total time spent is greater than 50% in coordination of care (as documented) at patient's floor/unit and/or counseling patient: Time with patient: less than 15 minutes Progress Note: Quality Stroke Does the patient have a stroke diagnosis?: No Procedures Date of Service Date of Service: 03/03/21
[2021-03-03 12:22] LABS: Osmolality Urine 362 mosm/kg (373-1093)
[2021-03-03 12:37] LABS: Sodium Urine Random < 20.0 mmol/L
[2021-03-03] MEDS: cefTRIAXone sodium 1 GM in 0.9 % Sodium Chloride 50 ML IV (14:19)
--- NOTE | 2021-03-03 14:49 | PC.NURSE ---
physical therapy at bedside
[2021-03-03 15:34] LABS: Anion Gap 11 (12-20); Carbon Dioxide 34 mmol/L (22-29); Chloride 84 mmol/L (96-108); Potassium 3.2 mmol/L (3.3-5.1); Sodium 126 mmol/L (135-145)
--- NOTE | 2021-03-03 17:01 | P.PNNP_ITS ---
Subjective Subjective Date of Service: 03/03/21 Principal diagnosis: hypoNa, HTN Interval history: Seen and examined, events noted CTA noted Physical Exam Vital Signs: Vital Signs: Last Vital Signs Temp 97.8 F 03/02/21 15:11 Pulse 70 03/03/21 14:24 Resp 18 03/03/21 14:24 BP 136/81 03/03/21 14:24 Pulse Ox 98 03/03/21 14:24 BMI result Body Mass Index 20.2 Const: Other: vague but no acute distress General: cooperative and no acute distress Orientation/consciousness: patient oriented x3 HENMT: Other: Unremarkable Eyes: General: appearance normal, both eyes and all related structures Pupils: Equal, round and reactive pupils present Neck: Neck: Yes normal visual inspection Chest: Chest palpation & inspection: normal inspection of the chest Resp: Other: Few crackles. Effort & Inspection: normal respiratory effort Auscultation: clear to auscultation bilaterally Cardio: Other: no S4; positive S1-S2; no S3 murmurs rubs or gallop Palpation: normal PMI Rate: regular rate Rhythm: regular rhythm Heart sounds: S1 normal heart sound present, S2 normal heart sound present, no gallops, no murmurs and no rubs GI: Other: soft nontender nondistended with normoactive bowel sounds Palpation (GI): Soft to palpation Auscultation: normal bowel sounds Back/Spine/Pelvis: Other: unremarkable Skin: General skin exam: no rashes or lesions noted Lesions: other Neuro: Other: cranial nerves 2-12 grossly intact as tested. Moves all extremities with equal power General: patient oriented x3 Cranial nerves: Yes Equal, round and reactive pupils present and Yes Other cranial nerve f indings present Cognition (Neuro): normal cognition Extrem: Other: no edema bilateral General: Yes normal to inspection, Yes no pedal edema and Yes other Psych: Mental Status: other Objective Data Labs CBC & Chem 7: 03/03/21 06:50 03/03/21 15:16 Labs: Laboratory Results - last 24 hr 03/02/21 03/03/21 03/03/21 17:10 00:24 06:50 WBC 8.6 RBC 2.99 L Hgb 9.3 L Hct 27.0 L MCV 90.3 MCH 31.1 MCHC 34.4 RDW 14.2 Plt Count 184 MPV 9.0 L Immature Gran % (Auto) 0.5 H Neut % (Auto) 74.2 H Lymph % (Auto) 10.4 L [place] % (Auto) 11.9 H Eos % (Auto) 2.2 Baso % (Auto) 0.8 Lymph # (Auto) 0.9 L [place] # (Auto) 1.0 Eos # (Auto) 0.2 Baso # (Auto) 0.1 Abs Immat Gran (auto) 0.04 H Absolute Neuts (auto) 6.4 Absolute Nucleated RBC 0.000 Nucleated RBC % (auto) 0.0 Sodium 121 L 123 L Potassium 3.9 3.2 L Chloride 81 L 83 L Carbon Dioxide 31 H 30 H Anion Gap 13 13 BUN Creatinine Estim Creat Clear Calc Estimated GFR Fasting Glucose Uric Acid Calcium Total Bilirubin AST ALT Alkaline Phosphatase Total Protein Albumin Urine Osmolality Ur Random Sodium 03/03/21 03/03/21 03/03/21 06:50 11:54 11:54 WBC RBC Hgb Hct MCV MCH MCHC RDW Plt Count MPV Immature Gran % (Auto) Neut % (Auto) Lymph % (Auto) [place] % (Auto) Eos % (Auto) Baso % (Auto) Lymph # (Auto) [place] # (Auto) Eos # (Auto) Baso # (Auto) Abs Immat Gran (auto) Absolute Neuts (auto) Absolute Nucleated RBC Nucleated RBC % (auto) Sodium 124 L Potassium 3.4 Chloride 84 L Carbon Dioxide 29 Anion Gap 14 BUN 15 Creatinine 1.22 Estim Creat Clear Calc 54.7 Estimated GFR > 60 Fasting Glucose 104 H Uric Acid 5.9 Calcium 8.1 L Total Bilirubin 0.4 AST 31 ALT 15 Alkaline Phosphatase 124 H D Total Protein 5.5 L Albumin 2.9 L Urine Osmolality 362 L Ur Random Sodium < 20.0 03/03/21 15:16 WBC RBC Hgb Hct MCV MCH MCHC RDW Plt Count MPV Immature Gran % (Auto) Neut % (Auto) Lymph % (Auto) [place] % (Auto) Eos % (Auto) Baso % (Auto) Lymph # (Auto) [place] # (Auto) Eos # (Auto) Baso # (Auto) Abs Immat Gran (auto) Absolute Neuts (auto) Absolute Nucleated RBC Nucleated RBC % (auto) Sodium 126 L Potassium 3.2 L Chloride 84 L Carbon Dioxide 34 H Anion Gap 11 L BUN Creatinine Estim Creat Clear Calc Estimated GFR Fasting Glucose Uric Acid Calcium Total Bilirubin AST ALT Alkaline Phosphatase Total Protein Albumin Urine Osmolality Ur Random Sodium Microbiology Microbiology Results: Microbiology 03/01/21 13:01 Blood - Venous Blood Culture - Preliminary No growth after 48 hours. 03/01/21 13:01 Blood - Venous Blood Culture - Preliminary No growth after 48 hours. Procedures Date of Service Date of Service: 03/03/21 Assessment & Plan Assessment and plan (1) Hypertensive urgency: Status: Acute (2) Alcoholism: Status: Acute (3) Elevated brain natriuretic peptide (BNP) level: Status: Acute (4) Atherosclerotic cardiovascular disease: Status: Acute Assessment and Plan: 1. Recurrent severe HypoNa: w/u c/w mixed picture including: hypovol hypoNa; low solute intake, inapp ADH and excess PO fluid intake Good news is Sna is incr gradually May need to considerd/c SSRI and/or oxcarbazepine ( the latter has high risk of SAIDH) 2. Severe HTN: much improved; ques ARB is playing signif role in lowering BP ( ? HENNY) REC: cont to track SNa too avoid to rapidrise ( 4-6meq per 24 hrs)and make sure it does not decrease;cont to track BPs and will conisder renal vein renin levels to see if it is with L HENNY/atrophic kidney that is a hyperrenin secreting kidney and if so then can proceed with either plasty/stenting vs Nephrectomy Will follow with team Time Spent With Patient Time: Total time spent is greater than 50% in coordination of care (as documented) at patient's floor/unit and/or counseling patient: Progress Note: Quality Stroke Does the patient have a stroke diagnosis?: No
--- NOTE | 2021-03-03 17:32 | HO.PM.IMPN ---
Subjective Subjective Date of Service: 03/03/21 Interval History: much brighter today. Willing to consider placement and sniff Review of Systems denies chest pain Denies shortness of breath Denies nausea vomiting diarrhea Physical Exam Vital Signs: Vital Signs: Last Vital Signs Temp 97.8 F 03/02/21 15:11 Pulse 70 03/03/21 14:24 Resp 18 03/03/21 14:24 BP 136/81 03/03/21 14:24 Pulse Ox 98 03/03/21 14:24 BMI result Body Mass Index 20.2 Const: Other: vague but no acute distress Resp: Other: clear to auscultation bilaterally with scant crackles at bases Cardio: Other: no S4; positive S1-S2; no S3 murmurs rubs or gallop GI: Other: soft nontender nondistended with normoactive bowel sounds Neuro: Other: cranial nerves 2-12 grossly intact as tested. Moves all extremities with equal power Extrem: Other: no edema bilateral Objective Data Active Medications Acetaminophen (Acetaminophen 325 Mg Tablet) 650 mg PO Q6H PRN PRN Reason: Pain, Mild (Pain Scale 1-3) Albuterol Sulfate (Albuterol Sulfate 90 Mcg 8 Gm Inhaler) 2 puff INHALE Q4H PRN PRN Reason: Shortness Of Breath Last Admin: 03/03/21 04:11 Dose: 2 puff Documented by: LUKE Aspirin (Aspirin Enteric Coated 81 Mg Tablet.Dr) 81 mg PO DAILY [facility] Last Admin: 03/03/21 09:03 Dose: 81 mg Documented by: CRISTA Carvedilol (Carvedilol 12.5 Mg Tablet) 12.5 mg PO BID [facility]; Protocol Last Admin: 03/03/21 09:04 Dose: 12.5 mg Documented by: CRISTA Docusate Sodium (Docusate Sodium 100 Mg Capsule) 100 mg PO DAILY PRN PRN Reason: Constipation Enoxaparin Sodium (Enoxaparin Sodium 40 Mg/0.4 Ml Syringe) 40 mg SUBCUT Q24H [facility] Last Admin: 03/02/21 22:02 Dose: 40 mg Documented by: ALEJANDRO Fluoxetine HCl (Fluoxetine Hcl 20 Mg Capsule) 40 mg PO DAILY [facility] Last Admin: 03/03/21 09:03 Dose: 40 mg Documented by: CRISTA Folic Acid (Folic Acid 1 Mg Tablet) 1 mg PO DAILY [facility] Last Admin: 03/03/21 09:05 Dose: 1 mg Documented by: CRISTA Ceftriaxone Sodium 1 gm/ (Sodium Chloride) 50 mls @ 100 mls/hr IV Q24H [facility] Last Infusion: 03/03/21 14:55 Dose: 0 mls/hr Documented by: CRISTA Azithromycin 500 mg/ Sodium (Chloride) 250 mls @ 125 mls/hr IV Q24H [facility] Last Infusion: 03/03/21 00:39 Dose: 0 mls/hr Documented by: OLLIE Labetalol HCl (Labetalol Hcl 100 Mg/20 Ml Vial) 20 mg IVPUSH Q20M PRN PRN Reason: SBP > 160 Last Admin: 03/01/21 17:42 Dose: 20 mg Documented by: TAD Losartan Potassium (Losartan Potassium 25 Mg Tablet) 25 mg PO DAILY [facility]; Protocol Last Admin: 03/03/21 09:04 Dose: 25 mg Documented by: CRISTA Multivitamins/Vitamin C (Multivitamin Tablet) 1 tab PO DAILY [facility] Last Admin: 03/03/21 09:03 Dose: 1 tab Documented by: CRISTA Ondansetron HCl (Ondansetron Hcl 4 Mg/2 Ml Vial) 4 mg IVPUSH Q8H PRN PRN Reason: Nausea and Vomiting Oxcarbazepine (Oxcarbazepine 150 Mg Tablet) 150 mg PO TID [facility] Last Admin: 03/03/21 14:19 Dose: 150 mg Documented by: CRISTA Pharmacy Consult (Consult Rx Perform Med Rec) 1 each MISCELLANE ONCE PRN PRN Reason: Consult order Sodium Chloride (0.9 % Sodium Chloride Flush 3 Ml Syringe) 3 ml IVFLUSH QSHIFT [facility] Last Admin: 03/03/21 17:17 Dose: Not Given Documented by: CRISTA Non-Admin Reason: pt sleeping Thiamine HCl (Thiamine Hcl 100 Mg Tablet) 100 mg PO DAILY [facility] Last Admin: 03/03/21 09:04 Dose: 100 mg Documented by: CRISTA Labs CBC & Chem 7: 03/03/21 06:50 03/03/21 15:16 Labs: Laboratory Results - last 24 hr 03/02/21 03/03/21 03/03/21 17:10 00:24 06:50 MCV 90.3 MCH 31.1 MCHC 34.4 RDW 14.2 Plt Count 184 MPV 9.0 L Immature Gran % (Auto) 0.5 H Neut % (Auto) 74.2 H Lymph % (Auto) 10.4 L [place] % (Auto) 11.9 H Eos % (Auto) 2.2 Baso % (Auto) 0.8 Lymph # (Auto) 0.9 L [place] # (Auto) 1.0 Eos # (Auto) 0.2 Baso # (Auto) 0.1 Abs Immat Gran (auto) 0.04 H Absolute Neuts (auto) 6.4 Absolute Nucleated RBC 0.000 Nucleated RBC % (auto) 0.0 Anion Gap 13 13 Estim Creat Clear Calc Estimated GFR Fasting Glucose Uric Acid Calcium Total Bilirubin AST ALT Alkaline Phosphatase Total Protein Albumin Urine Osmolality Ur Random Sodium 03/03/21 03/03/21 03/03/21 06:50 11:54 11:54 MCV MCH MCHC RDW Plt Count MPV Immature Gran % (Auto) Neut % (Auto) Lymph % (Auto) [place] % (Auto) Eos % (Auto) Baso % (Auto) Lymph # (Auto) [place] # (Auto) Eos # (Auto) Baso # (Auto) Abs Immat Gran (auto) Absolute Neuts (auto) Absolute Nucleated RBC Nucleated RBC % (auto) Anion Gap 14 Estim Creat Clear Calc 54.7 Estimated GFR > 60 Fasting Glucose 104 H Uric Acid 5.9 Calcium 8.1 L Total Bilirubin 0.4 AST 31 ALT 15 Alkaline Phosphatase 124 H D Total Protein 5.5 L Albumin 2.9 L Urine Osmolality 362 L Ur Random Sodium < 20.0 03/03/21 15:16 MCV MCH MCHC RDW Plt Count MPV Immature Gran % (Auto) Neut % (Auto) Lymph % (Auto) [place] % (Auto) Eos % (Auto) Baso % (Auto) Lymph # (Auto) [place] # (Auto) Eos # (Auto) Baso # (Auto) Abs Immat Gran (auto) Absolute Neuts (auto) Absolute Nucleated RBC Nucleated RBC % (auto) Anion Gap 11 L Estim Creat Clear Calc Estimated GFR Fasting Glucose Uric Acid Calcium Total Bilirubin AST ALT Alkaline Phosphatase Total Protein Albumin Urine Osmolality Ur Random Sodium Microbiology Microbiology Results: Microbiology 03/01/21 13:01 Blood Culture - Preliminary Blood - Venous No growth after 48 hours. 03/01/21 13:01 Blood Culture - Preliminary Blood - Venous No growth after 48 hours. Assessment and Plan (1) Acute hyponatremia: Status: Acute (2) Hypertension: Status: Acute (3) H/O ETOH abuse: Status: Acute Assessment and Plan: This is a 60-year-old male with past medical history of alcohol abuse with previous admissions for hypernatremia presents to the hospital found to have hypokalemia and hyponatremia 1.Hypernatremia Slowly resolving. IVF's D/C'd . Repeat Na+ 123 @1220. will check in a.m.. . . Will discuss with a renal but likely change Prozac to 20 mg daily 2.Hypokalemia Repleted. As per renal, will avoid aggressive K+ repletion 3.Elevated BNP ; query CHF on CT. Examines euvolemic... echo with mildly decreased EF and akinetic segments. 4.Hypertensive urgency Improved with Labetalol/Hydralazine/Coreg Excellent response to ARB 5. EToH abuse Phenobarb protocol..Continue Thiamine/Folate DVT prophylaxis: Lovenox Quality Stroke Does the patient have a stroke diagnosis?: No VTE Prior VTE?: No VTE Risk Level:: Medical - moderate - high VTE Device Contraindication: Treatment Not Indicated VTE Drug Contraindication: N/A - Med Ordered
--- NOTE | 2021-03-03 19:30 | PC.NURSE ---
Assumed care of pt Pt resting on stretcher Breathing even and unlabored NAD Will continue to monitor
[2021-03-03] MEDS: Enoxaparin Sodium 40 MG/0.4 ML SYRINGE SUBCUT (21:55)
--- NOTE | 2021-03-03 22:00 | PC.NURSE ---
Pt medicated per MAY Pt toelrated well Pt given juice per request Will continue to monitor
[2021-03-03] MEDS: Azithromycin 500 MG in 0.9 % Sodium Chloride 250 ML 125 MG IV (22:02)
--- NOTE | 2021-03-03 23:25 | PC.NURSE ---
Pt had large soft BM Pt cleaned, new gown, sheets, and blankets given Pt tolerated well Will continue to monitor
[2021-03-04] VITALS (14 sets, daily range): BP systolic 99–166; BP diastolic 48–98; PULSE 63–79; RESP 15–25; TEMP 36.5–36.8; O2SAT 95–100; BMI 20.2
[2021-03-04] MEDS: Labetalol HCL 100 MG/20 ML VIAL 20 MG IVPUSH ×2 (04:08→06:39)
--- NOTE | 2021-03-04 04:19 | PC.NURSE ---
Pt medicated per MAY Pt toelrated well BP now 144/89 with HR 66 bpm Will continuet o monitor
[2021-03-04 06:41] LABS: MANUAL DIFF FLAG NO
[2021-03-04 06:48] LABS: Basophils Absolute Auto 0.1 X10*3/uL (0.0-0.2); Basophils Percent Auto 1.2 % (0-2); Eosinophils Absolute Auto 0.3 X10*3/uL (0.0-0.4); Eosinophils Percent Auto 2.9 % (0-4); Hematocrit 24.9 % (42.0-52.0); Hemoglobin 8.4 g/dl (14.0-18.0); Imm Gran Abs Auto 0.04 X10*3/uL (0.00-0.03); Imm Gran Pct Auto 0.4 % (0.0-0.4); Lymphocytes Absolute Auto 1.2 X10*3/uL (1.2-4.9); Lymphocytes Percent Auto 13.6 % (20-40); Mean Corpuscular HGB Conc 33.7 g/dl (31.0-36.0); Mean Corpuscular Hemoglobin 31.2 pg (27.0-33.0); Mean Corpuscular Volume 92.6 fL (80.0-98.0); Neutrophils Absolute Auto 6.3 x10*3/uL (2.0-8.3); Neutrophils Percent Auto 70.9 % (45-73); Platelet Count 189 X10*3/uL (160-400); Red Blood Count 2.69 X10*6/uL (4.60-5.80); Red Cell Distribution Width 14.5 % (11.0-16.0); White Blood Count 8.9 X10*3/uL (4.8-10.8)
[2021-03-04 06:58] LABS: Alanine Aminotransferase 13 U/L (0-40); Albumin Level 2.5 g/dL (3.5-5.0); Alkaline Phosphatase 104 U/L (39-117); Anion Gap 11 (12-20); Aspartate Amino Transferase 23 U/L (5-37); Bilirubin Total 0.3 mg/dL (0.0-1.0); Blood Urea Nitrogen 20 mg/dL (9-16); Calcium 7.8 mg/dL (8.4-10.2); Carbon Dioxide 31 mmol/L (22-29); Chloride 87 mmol/L (96-108); Creatinine Clr Calc Pharmacy 41.2; Estimated Glomerular Filt Rate 44; Glucose Fasting 106 mg/dL (60-99); Potassium 3.4 mmol/L (3.3-5.1); Sodium 126 mmol/L (135-145); Total Protein 4.7 g/dL (6.5-8.0)
[2021-03-04] MEDS: FLUoxetine HCl 20 MG CAPSULE 40 MG PO (08:10)
[2021-03-04] MEDS: Thiamine HCL 100 MG TABLET PO (08:10)
[2021-03-04] MEDS: Folic Acid 1 MG TABLET PO (08:10)
[2021-03-04] MEDS: OXcarbazepine 150 MG TABLET PO ×3 (08:10→21:29)
[2021-03-04] MEDS: Aspirin Enteric Coated 81 MG TABLET.DR PO (08:10)
[2021-03-04] MEDS: carvediloL 12.5 MG TABLET PO (08:10)
[2021-03-04] MEDS: Losartan Potassium 25 MG TABLET PO (08:10)
[2021-03-04] MEDS: Multivitamin TABLET 1 TAB PO (08:10)
[2021-03-04] MEDS: 0.9 % Sodium Chloride Flush 3 ML SYRINGE IVFLUSH ×2 (08:13→18:42)
--- NOTE | 2021-03-04 08:16 | PC.NURSE ---
Pt Awake, A&Ox3, dry hacking cough at this time, normal O2 sat on 2L NC, BP WNL at this time, medicated as per MAR orders with morning meds. Pt offers no complaints, states he is waiting for placement into a SNF and he thinks it will be in [place]. Call simmons within reach, will continue to monitor.
--- NOTE | 2021-03-04 10:13 | P.CDIC_ITS ---
CDI Concurrent Query Documentation Clarification: PHYSICIAN'S DOCUMENTATION REQUEST Date of Query: 03/04/21 1014 Patient Name: Luan Mitchell Admit Date: 03/01/21 Dear Doctor, A review of the medical record indicates additional documentation may be needed. Please review below and update the documentation accordingly. Clinical Indicators: Risk Factors/Clinical Indicators/Treatments Cardiology note 03/03-Slight LV dysfunction, stable CAD. BNP 1564 H Echo performed 03/02 Progress note: 03/02 - Assessment/plan-Elevated BNP, query CHF on CT. Please provide further specificity regarding the most likely type and acuity of CHF you are evaluating, treating, or monitoring. Examples include: Type: * Systolic * Diastolic * Combined Systolic/Diastolic * Other ? please specify * Unable to determine Acuity: * Acute * Chronic * Acute on chronic * Unable to determine Use of terms such as suspected, likely, concern for, or probable (associated with a specific diagnosis that is being evaluated, monitored, or treated as if it exists) are acceptable and can be coded in the inpatient setting, when documented at the time of discharge. Thank you, Sonam Baca [facility], CDIS Extension: [phone] Please use your independent medical judgment in providing your response. THIS QUERY IS PART OF THE PERMANENT MEDICAL RECORD Provider Response: Other Other Diagnosis: unable to determine; echo with normal LV function
[2021-03-04] MEDS: cefTRIAXone sodium 1 GM in 0.9 % Sodium Chloride 50 ML IV (14:47)
--- NOTE | 2021-03-04 16:31 | P.PNIM_ITS ---
Subjective Subjective Date of Service: 03/04/21 Interval History: no acute events overnight. No signs of alcohol withdrawal Review of Systems denies chest pain Denies shortness of breath Denies nausea vomiting diarrhea Physical Exam Vital Signs: Vital Signs: Last Vital Signs Temp 97.7 F 03/04/21 06:00 Pulse 68 03/04/21 14:16 Resp 16 03/04/21 14:16 BP 103/48 L 03/04/21 14:16 Pulse Ox 96 03/04/21 14:16 BMI result Body Mass Index 20.2 Const: Other: vague but no acute distress Resp: Other: clear to auscultation bilaterally with scant crackles at bases Cardio: Other: no S4; positive S1-S2; no S3 murmurs rubs or gallop GI: Other: soft nontender nondistended with normoactive bowel sounds Neuro: Other: cranial nerves 2-12 grossly intact as tested. Moves all extremities with equal power Extrem: Other: no edema bilateral Objective Data Active Medications Acetaminophen (Acetaminophen 325 Mg Tablet) 650 mg PO Q6H PRN PRN Reason: Pain, Mild (Pain Scale 1-3) Albuterol Sulfate (Albuterol Sulfate 90 Mcg 8 Gm Inhaler) 2 puff INHALE Q4H PRN PRN Reason: Shortness Of Breath Last Admin: 03/03/21 04:11 Dose: 2 puff Documented by: LUKE Aspirin (Aspirin Enteric Coated 81 Mg Tablet.Dr) 81 mg PO DAILY [facility] Last Admin: 03/04/21 08:10 Dose: 81 mg Documented by: GOLDY Carvedilol (Carvedilol 12.5 Mg Tablet) 12.5 mg PO BID [facility]; Protocol Last Admin: 03/04/21 08:10 Dose: 12.5 mg Documented by: GOLDY Docusate Sodium (Docusate Sodium 100 Mg Capsule) 100 mg PO DAILY PRN PRN Reason: Constipation Enoxaparin Sodium (Enoxaparin Sodium 40 Mg/0.4 Ml Syringe) 40 mg SUBCUT Q24H [facility] Last Admin: 03/03/21 21:55 Dose: 40 mg Documented by: OR[place]O Fluoxetine HCl (Fluoxetine Hcl 20 Mg Capsule) 40 mg PO DAILY [facility] Last Admin: 03/04/21 08:10 Dose: 40 mg Documented by: GOLDY Folic Acid (Folic Acid 1 Mg Tablet) 1 mg PO DAILY [facility] Last Admin: 03/04/21 08:10 Dose: 1 mg Documented by: GOLDY Ceftriaxone Sodium 1 gm/ (Sodium Chloride) 50 mls @ 100 mls/hr IV Q24H [facility] Last Infusion: 03/04/21 15:46 Dose: 0 mls/hr Documented by: JONATHAN Azithromycin 500 mg/ Sodium (Chloride) 250 mls @ 125 mls/hr IV Q24H [facility] Last Infusion: 03/04/21 00:30 Dose: 0 mls/hr Documented by: ORLANDO Labetalol HCl (Labetalol Hcl 100 Mg/20 Ml Vial) 20 mg IVPUSH Q20M PRN PRN Reason: SBP > 160 Last Admin: 03/04/21 06:39 Dose: 20 mg Documented by: ORLANDO Losartan Potassium (Losartan Potassium 25 Mg Tablet) 25 mg PO DAILY [facility]; Protocol Last Admin: 03/04/21 08:10 Dose: 25 mg Documented by: GOLDY Multivitamins/Vitamin C (Multivitamin Tablet) 1 tab PO DAILY [facility] Last Admin: 03/04/21 08:10 Dose: 1 tab Documented by: GOLDY Ondansetron HCl (Ondansetron Hcl 4 Mg/2 Ml Vial) 4 mg IVPUSH Q8H PRN PRN Reason: Nausea and Vomiting Oxcarbazepine (Oxcarbazepine 150 Mg Tablet) 150 mg PO TID [facility] Last Admin: 03/04/21 14:47 Dose: 150 mg Documented by: GOLDY Pharmacy Consult (Consult Rx Perform Med Rec) 1 each MISCELLANE ONCE PRN PRN Reason: Consult order Sodium Chloride (0.9 % Sodium Chloride Flush 3 Ml Syringe) 3 ml IVFLUSH QSHIFT [facility] Last Admin: 03/04/21 08:13 Dose: 3 ml Documented by: GOLDY Thiamine HCl (Thiamine Hcl 100 Mg Tablet) 100 mg PO DAILY [facility] Last Admin: 03/04/21 08:10 Dose: 100 mg Documented by: GOLDY Labs CBC & Chem 7: 03/04/21 06:34 03/04/21 06:34 Labs: Laboratory Results - last 24 hr 03/04/21 03/04/21 06:34 06:34 MCV 92.6 MCH 31.2 MCHC 33.7 RDW 14.5 Plt Count 189 MPV 9.0 L Immature Gran % (Auto) 0.4 Neut % (Auto) 70.9 Lymph % (Auto) 13.6 L [place] % (Auto) 11.0 Eos % (Auto) 2.9 Baso % (Auto) 1.2 Lymph # (Auto) 1.2 [place] # (Auto) 1.0 Eos # (Auto) 0.3 Baso # (Auto) 0.1 Abs Immat Gran (auto) 0.04 H Absolute Neuts (auto) 6.3 Absolute Nucleated RBC 0.000 Nucleated RBC % (auto) 0.0 Anion Gap 11 L Estim Creat Clear Calc 41.2 Estimated GFR 44 Fasting Glucose 106 H Calcium 7.8 L Total Bilirubin 0.3 AST 23 ALT 13 Alkaline Phosphatase 104 Total Protein 4.7 L Albumin 2.5 L Microbiology Microbiology Results: Microbiology 03/01/21 13:01 Blood Culture - Preliminary Blood - Venous No growth after 48 hours. 03/01/21 13:01 Blood Culture - Preliminary Blood - Venous No growth after 48 hours. Assessment and Plan (1) Acute hyponatremia: Status: Acute (2) Hypertension: Status: Acute (3) H/O ETOH abuse: Status: Acute Assessment and Plan: This is a 60-year-old male with past medical history of alcohol abuse with previous admissions for hypernatremia presents to the hospital found to have hypokalemia and hyponatremia 1.Hypernatremia Stable x multiple draws. Needs placement...consider review of [facility] meds when SNF 3.Elevated BNP ; query CHF on CT. Examines euvolemic... echo with mildly decreased EF and akinetic segments. BNP at baseline 4.Hypertension Excellent response to small dose ARB. Per renal...may consider RVR 5. EToH abuse Phenobarb protocol..Continue Thiamine/Folate No signs W/D thus far DVT prophylaxis: Lovenox Quality Stroke Does the patient have a stroke diagnosis?: No VTE Prior VTE?: No VTE Risk Level:: Medical - moderate - high VTE Device Contraindication: Treatment Not Indicated VTE Drug Contraindication: N/A - Med Ordered
--- NOTE | 2021-03-04 18:47 | P.PNNP_ITS ---
Subjective Subjective Date of Service: 03/04/21 Principal diagnosis: hypoNa, HTN Interval history: no acute events overnight. No signs of alcohol withdrawal Physical Exam Vital Signs: Vital Signs: Last Vital Signs Temp 97.7 F 03/04/21 06:00 Pulse 68 03/04/21 14:16 Resp 16 03/04/21 14:16 BP 103/48 L 03/04/21 14:16 Pulse Ox 96 03/04/21 14:16 BMI result Body Mass Index 20.2 Const: Other: vague but no acute distress General: cooperative and no acute distress Orientation/consciousness: patient oriented x3 HENMT: Other: Unremarkable Eyes: General: appearance normal, both eyes and all related structures Pupils: Equal, round and reactive pupils present Neck: Neck: Yes normal visual inspection Chest: Chest palpation & inspection: normal inspection of the chest Resp: Other: Few crackles. Effort & Inspection: normal respiratory effort Auscultation: clear to auscultation bilaterally Cardio: Other: no S4; positive S1-S2; no S3 murmurs rubs or gallop Palpation: normal PMI Rate: regular rate Rhythm: regular rhythm Heart sounds: S1 normal heart sound present, S2 normal heart sound present, no gallops, no murmurs and no rubs GI: Other: soft nontender nondistended with normoactive bowel sounds Palp ation (GI): Soft to palpation Auscultation: normal bowel sounds Back/Spine/Pelvis: Other: unremarkable Skin: General skin exam: no rashes or lesions noted Lesions: other Neuro: Other: cranial nerves 2-12 grossly intact as tested. Moves all extremities with equal power General: patient oriented x3 Cranial nerves: Yes Equal, round and reactive pupils present and Yes Other cranial nerve findings present Cognition (Neuro): normal cognition Extrem: Other: no edema bilateral General: Yes normal to inspection, Yes no pedal edema and Yes other Psych: Mental Status: other Objective Data Labs CBC & Chem 7: 03/04/21 06:34 03/04/21 06:34 Labs: Laboratory Results - last 24 hr 03/04/21 03/04/21 06:34 06:34 WBC 8.9 RBC 2.69 L Hgb 8.4 L Hct 24.9 L MCV 92.6 MCH 31.2 MCHC 33.7 RDW 14.5 Plt Count 189 MPV 9.0 L Immature Gran % (Auto) 0.4 Neut % (Auto) 70.9 Lymph % (Auto) 13.6 L [place] % (Auto) 11.0 Eos % (Auto) 2.9 Baso % (Auto) 1.2 Lymph # (Auto) 1.2 [place] # (Auto) 1.0 Eos # (Auto) 0.3 Baso # (Auto) 0.1 Abs Immat Gran (auto) 0.04 H Absolute Neuts (auto) 6.3 Absolute Nucleated RBC 0.000 Nucleated RBC % (auto) 0.0 Sodium 126 L Potassium 3.4 Chloride 87 L Carbon Dioxide 31 H Anion Gap 11 L BUN 20 H Creatinine 1.62 H Estim Creat Clear Calc 41.2 Estimated GFR 44 Fasting Glucose 106 H Calcium 7.8 L Total Bilirubin 0.3 AST 23 ALT 13 Alkaline Phosphatase 104 Total Protein 4.7 L Albumin 2.5 L Microbiology Microbiology Results: Microbiology 03/01/21 13:01 Blood - Venous Blood Culture - Preliminary No growth after 48 hours. 03/01/21 13:01 Blood - Venous Blood Culture - Preliminary No growth after 48 hours. Procedures Date of Service Date of Service: 03/04/21 Assessment & Plan Assessment and plan (1) Hypertensive urgency: Status: Acute (2) Alcoholism: Status: Acute (3) Elevated brain natriuretic peptide (BNP) level: Status: Acute (4) Atherosclerotic cardiovascular disease: Status: Acute Assessment and Plan: 1. Recurrent severe HypoNa: w/u c/w mixed picture including: hypovol hypoNa; low solute intake, inapp ADH and excess PO fluid intake Good news is Sna is incr gradually May need to consider d/c SSRI and/or oxcarbazepine ( both can cause SIADH but the latter has high risk of SAIDH) 2. Severe HTN: much improved; ques ARB is playing signif role in lowering BP ( ? HENNY) REC: cont to track SNa too avoid to rapid rise ( 4-6meq per 24 hrs)and make sure it does not decrease;cont to track BPs and will conisder renal vein renin levels to see if it is with L HENNY/atrophic kidney that is a hyperrenin secreting kidney ( both IR and vasc surgery say they are unable to do this procedure); agree with cutback of BP meds to avoid symptomatic hypotension Will follow with team Time Spent With Patient Time: Total time spent is greater than 50% in coordination of care (as documented) at patient's floor/unit and/or counseling patient: Progress Note: Quality Stroke Does the patient have a stroke diagnosis?: No
[2021-03-04 19:30] LABS: Anion Gap 12 (12-20); Carbon Dioxide 35 mmol/L (22-29); Chloride 86 mmol/L (96-108); Potassium 3.7 mmol/L (3.3-5.1); Sodium 129 mmol/L (135-145)
--- NOTE | 2021-03-04 21:13 | PC.NURSE ---
Assumed care at 1500; admission assessment completed by this RN.
[2021-03-04] MEDS: Melatonin 3 MG TABLET 6 MG PO (21:29)
[2021-03-04] MEDS: Enoxaparin Sodium 40 MG/0.4 ML SYRINGE SUBCUT (21:32)
[2021-03-04] MEDS: Azithromycin 500 MG in 0.9 % Sodium Chloride 250 ML 125 MG IV (23:12)
[2021-03-05] VITALS (8 sets, daily range): BP systolic 127–142; BP diastolic 60–82; PULSE 75–78; RESP 15–20; TEMP 36.4–37.2; O2SAT 94–100; BMI 20.2
[2021-03-05 06:25] LABS: MANUAL DIFF FLAG NO
[2021-03-05 06:28] LABS: Basophils Absolute Auto 0.1 X10*3/uL (0.0-0.2); Basophils Percent Auto 0.8 % (0-2); Eosinophils Absolute Auto 0.3 X10*3/uL (0.0-0.4); Hematocrit 24.3 % (42.0-52.0); Hemoglobin 8.3 g/dl (14.0-18.0); Imm Gran Abs Auto 0.03 X10*3/uL (0.00-0.03); Imm Gran Pct Auto 0.4 % (0.0-0.4); Lymphocytes Absolute Auto 1.1 X10*3/uL (1.2-4.9); Lymphocytes Percent Auto 15.2 % (20-40); Mean Corpuscular HGB Conc 34.2 g/dl (31.0-36.0); Mean Corpuscular Hemoglobin 31.7 pg (27.0-33.0); Mean Corpuscular Volume 92.7 fL (80.0-98.0); Mean Platelet Volume 9.3 fL (9.4-12.4); Monocytes Absolute Auto 0.9 X10*3/uL (0.1-1.2); Neutrophils Absolute Auto 4.9 x10*3/uL (2.0-8.3); Neutrophils Percent Auto 67.6 % (45-73); Platelet Count 202 X10*3/uL (160-400); Red Blood Count 2.62 X10*6/uL (4.60-5.80); Red Cell Distribution Width 14.6 % (11.0-16.0); White Blood Count 7.3 X10*3/uL (4.8-10.8)
[2021-03-05 06:50] LABS: Alanine Aminotransferase 15 U/L (0-40); Albumin Level 2.6 g/dL (3.5-5.0); Alkaline Phosphatase 110 U/L (39-117); Anion Gap 12 (12-20); Aspartate Amino Transferase 22 U/L (5-37); Bilirubin Total 0.3 mg/dL (0.0-1.0); Blood Urea Nitrogen 24 mg/dL (9-16); Carbon Dioxide 33 mmol/L (22-29); Chloride 88 mmol/L (96-108); Creatinine Clr Calc Pharmacy 31.5; Estimated Glomerular Filt Rate 32; Glucose Fasting 151 mg/dL (60-99); Potassium 3.5 mmol/L (3.3-5.1); Sodium 129 mmol/L (135-145)
[2021-03-05] MEDS: carvediloL 12.5 MG TABLET PO ×2 (08:33→20:05)
[2021-03-05] MEDS: OXcarbazepine 150 MG TABLET PO ×3 (08:33→20:05)
[2021-03-05] MEDS: 0.9 % Sodium Chloride Flush 3 ML SYRINGE IVFLUSH (08:33)
[2021-03-05] MEDS: FLUoxetine HCl 20 MG CAPSULE 40 MG PO (08:33)
[2021-03-05] MEDS: Multivitamin TABLET 1 TAB PO (08:33)
[2021-03-05] MEDS: Docusate Sodium 100 MG CAPSULE PO (08:33)
[2021-03-05] MEDS: Losartan Potassium 25 MG TABLET PO (08:33)
[2021-03-05] MEDS: Thiamine HCL 100 MG TABLET PO (08:33)
[2021-03-05] MEDS: Aspirin Enteric Coated 81 MG TABLET.DR PO (08:33)
[2021-03-05] MEDS: Folic Acid 1 MG TABLET PO (08:34)
--- NOTE | 2021-03-05 13:01 | MHC.CM.PN ---
pt expected to dc home with recovery team referrals
--- NOTE | 2021-03-05 13:10 | PM.PNNEP ---
Subjective Subjective Date of Service: 03/05/21 Principal diagnosis: hypoNa, HTN, MAI Interval history: Seen and examined, events noted INcr SCr noted and very concerning Physical Exam Vital Signs: Vital Signs: Last Vital Signs Temp 97.6 F 03/05/21 10:59 Pulse 76 03/05/21 10:59 Resp 16 03/05/21 10:59 BP 127/60 03/05/21 10:59 Pulse Ox 100 03/05/21 10:59 BMI result Body Mass Index 20.2 Const: Other: vague but no acute distress General: cooperative and no acute distress Orientation/consciousness: patient oriented x3 HENMT: Other: Unremarkable Eyes: General: appearance normal, both eyes and all related structures Pupils: Equal, round and reactive pupils present Neck: Neck: Yes normal visual inspection Chest: Chest palpation & inspection: normal inspection of the chest Resp: Other: Few crackles. Effort & Inspection: normal respiratory effort Auscultation: clear to auscultation bilaterally Cardio: Other: no S4; positive S1-S2; no S3 murmurs rubs or gallop Palpation: normal PMI Rate: regular rate Rhythm: regular rhythm Heart sounds: S1 normal heart sound present, S2 normal heart sound present, no gallops, no murmurs and no rubs GI: Other: soft nontender nondistended with normoactive bowel sounds Palpation (GI): Soft to palpation Auscultation: normal bowel sounds Back/Spine/Pelvis: Other: unremarkable Skin: General skin exam: no rashes or lesions noted Lesions: other Neuro: Other: cranial nerves 2-12 grossly intact as tested. Moves all extremities with equal power General: patient oriented x3 Cranial nerves: Yes Equal, round and reactive pupils present and Yes Other cranial nerve findings present Cognition (Neuro): normal cognition Extrem: Other: no edema bilateral General: Yes normal to inspection, Yes no pedal edema and Yes other Psych: Mental Status: other Objective Data Labs CBC & Chem 7: 03/05/21 06:14 03/05/21 06:14 Labs: Laboratory Results - last 24 hr 03/04/21 03/05/21 03/05/21 18:57 06:14 06:14 WBC 7.3 RBC 2.62 L Hgb 8.3 L Hct 24.3 L MCV 92.7 MCH 31.7 MCHC 34.2 RDW 14.6 Plt Count 202 MPV 9.3 L Immature Gran % (Auto) 0.4 Neut % (Auto) 67.6 Lymph % (Auto) 15.2 L [place] % (Auto) 12.0 H Eos % (Auto) 4.0 Baso % (Auto) 0.8 Lymph # (Auto) 1.1 L [place] # (Auto) 0.9 Eos # (Auto) 0.3 Baso # (Auto) 0.1 Abs Immat Gran (auto) 0.03 Absolute Neuts (auto) 4.9 Absolute Nucleated RBC 0.000 Nucleated RBC % (auto) 0.0 Sodium 129 L 129 L Potassium 3.7 3.5 Chloride 86 L 88 L Carbon Dioxide 35 H 33 H Anion Gap 12 12 BUN 24 H Creatinine 2.12 H Estim Creat Clear Calc 31.5 Estimated GFR 32 Fasting Glucose 151 H D Calcium 8.0 L Total Bilirubin 0.3 AST 22 ALT 15 Alkaline Phosphatase 110 Total Protein 5.0 L Albumin 2.6 L Microbiology Microbiology Results: Microbiology 03/01/21 13:01 Blood - Venous Blood Culture - Preliminary No growth after 48 hours. 03/01/21 13:01 Blood - Venous Blood Culture - Preliminary No growth after 48 hours. Procedures Date of Service Date of Service: 03/05/21 Assessment & Plan Assessment and plan (1) Hypertensive urgency: Status: Acute (2) Alcoholism: Status: Acute (3) Elevated brain natriuretic peptide (BNP) level: Status: Acute (4) Atherosclerotic cardiovascular disease: Status: Acute Assessment and Plan: 1. Recurrent severe HypoNa: w/u c/w mixed picture including: hypovol hypoNa; low solute intake, inapp ADH and excess PO fluid intake Good news is Sna is cont incr gradually May need to consider d/c SSRI and/or oxcarbazepine ( both can cause SIADH but the latter has high risk of SAIDH) 2. Severe HTN: much improved; ques ARB is playing signif role in lowering BP ( ? HENNY); in past high adelina and remin which supports RVH and not primary hyperaldo 3. MAI: w/u in progress--ques IV contrast assoc ATN; relative renal hypoperfusion /ischemic ATN related to BP improvement and ARB; also raises concern fo emily HENNY depsite CTA not showing HENNY in R kidney 4. Anemia 5. H/O ETOH and cirrhosis REC: d/c cozaar; IVF x 1 liter; urine studies as oredered; track UOP/renal func; avoid Ntoxins; oupt eval of HENNY from atrophic L kidney ( renal vein reneins etc); check Fe studies Time Spent With Patient Time: Total time spent is greater than 50% in coordination of care (as documented) at patient's floor/unit and/or counseling patient: Progress Note: Quality Stroke Does the patient have a stroke diagnosis?: No
[2021-03-05] MEDS: 0.9 % Sodium Chloride 500 ML 75 ML IV (13:44)
[2021-03-05] MEDS: cefTRIAXone sodium 1 GM in 0.9 % Sodium Chloride 50 ML IV (13:45)
[2021-03-05 13:47] LABS: Iron 25 mcg/dL (45-160); Percent Iron Saturation 12 % (15-50); Total Iron Binding Capacity 214 mcg/dL (228-428); Unsaturated Iron Binding 189 ug/dL
[2021-03-05] MEDS: Albuterol Sulfate 90 MCG 8 GM INHALER 2 PUFF INHALE (13:47)
[2021-03-05 14:11] LABS: Ferritin 334 ng/mL (20-250)
--- NOTE | 2021-03-05 15:10 | P.PNIM_ITS ---
Subjective Subjective Date of Service: 03/05/21 Interval History: no acute issues overnight Review of Systems denies chest pain Denies shortness of breath Denies nausea vomiting diarrhea Physical Exam Vital Signs: Vital Signs: Last Vital Signs Temp 97.6 F 03/05/21 10:59 Pulse 76 03/05/21 10:59 Resp 16 03/05/21 10:59 BP 127/60 03/05/21 10:59 Pulse Ox 100 03/05/21 10:59 BMI result Body Mass Index 20.2 Const: Other: vague but no acute distress Resp: Other: clear to auscultation bilaterally with scant crackles at bases Cardio: Other: no S4; positive S1-S2; no S3 murmurs rubs or gallop GI: Other: soft nontender nondistended with normoactive bowel sounds Neuro: Other: cranial nerves 2-12 grossly intact as tested. Moves all extremities with equal power Extrem: Other: no edema bilateral Objective Data Active Medications Acetaminophen (Acetaminophen 325 Mg Tablet) 650 mg PO Q6H PRN PRN Reason: Pain, Mild (Pain Scale 1-3) Albuterol Sulfate (Albuterol Sulfate 90 Mcg 8 Gm Inhaler) 2 puff INHALE Q4H PRN PRN Reason: Shortness Of Breath Last Admin: 03/05/21 13:47 Dose: 2 puff Documented by: BI Aspirin (Aspirin Enteric Coated 81 Mg Tablet.Dr) 81 mg PO DAILY [facility] Last Admin: 03/05/21 08:33 Dose: 81 mg Documented by: BI Carvedilol (Carvedilol 12.5 Mg Tablet) 12.5 mg PO BID [facility]; Protocol Last Admin: 03/05/21 08:33 Dose: 12.5 mg Documented by: BI Docusate Sodium (Docusate Sodium 100 Mg Capsule) 100 mg PO DAILY PRN PRN Reason: Constipation Last Admin: 03/05/21 08:33 Dose: 100 mg Documented by: BI Enoxaparin Sodium (Enoxaparin Sodium 40 Mg/0.4 Ml Syringe) 40 mg SUBCUT Q24H [facility] Last Admin: 03/04/21 21:32 Dose: 40 mg Documented by: VADIM Fluoxetine HCl (Fluoxetine Hcl 20 Mg Capsule) 40 mg PO DAILY [facility] Last Admin: 03/05/21 08:33 Dose: 40 mg Documented by: BI Folic Acid (Folic Acid 1 Mg Tablet) 1 mg PO DAILY [facility] Last Admin: 03/05/21 08:34 Dose: 1 mg Documented by: BI Ceftriaxone Sodium 1 gm/ (Sodium Chloride) 50 mls @ 100 mls/hr IV Q24H [facility] Last Infusion: 03/05/21 14:35 Dose: 0 mls/hr Documented by: BI Azithromycin 500 mg/ Sodium (Chloride) 250 mls @ 125 mls/hr IV Q24H [facility] Last Infusion: 03/05/21 01:14 Dose: 0 mls/hr Documented by: ANNIE Sodium Chloride (Ns) 500 mls @ 75 mls/hr IV .Q6H40M [facility] Stop: 03/05/21 20:09 Last Admin: 03/05/21 13:44 Dose: 75 mls/hr Documented by: BI Labetalol HCl (Labetalol Hcl 100 Mg/20 Ml Vial) 20 mg IVPUSH Q20M PRN PRN Reason: SBP > 160 Last Admin: 03/04/21 06:39 Dose: 20 mg Documented by: [place] Melatonin (Melatonin 3 Mg Tablet) 6 mg PO BEDTIME PRN PRN Reason: Insomnia Last Admin: 03/04/21 21:29 Dose: 6 mg Documented by: VADIM Multivitamins/Vitamin C (Multivitamin Tablet) 1 tab PO DAILY [facility] Last Admin: 03/05/21 08:33 Dose: 1 tab Documented by: BI Ondansetron HCl (Ondansetron Hcl 4 Mg/2 Ml Vial) 4 mg IVPUSH Q8H PRN PRN Reason: Nausea and Vomiting Oxcarbazepine (Oxcarbazepine 150 Mg Tablet) 150 mg PO TID [facility] Last Admin: 03/05/21 13:45 Dose: 150 mg Documented by: BI Pharmacy Consult (Consult Rx Perform Med Rec) 1 each MISCELLANE ONCE PRN PRN Reason: Consult order Sodium Chloride (0.9 % Sodium Chloride Flush 3 Ml Syringe) 3 ml IVFLUSH QSHIFT [facility] Last Admin: 03/05/21 08:33 Dose: 3 ml Documented by: BI Thiamine HCl (Thiamine Hcl 100 Mg Tablet) 100 mg PO DAILY [facility] Last Admin: 03/05/21 08:33 Dose: 100 mg Documented by: BI Labs CBC & Chem 7: 03/05/21 06:14 03/05/21 06:14 Labs: Laboratory Results - last 24 hr 03/04/21 03/05/21 03/05/21 18:57 06:14 06:14 MCV 92.7 MCH 31.7 MCHC 34.2 RDW 14.6 Plt Count 202 MPV 9.3 L Immature Gran % (Auto) 0.4 Neut % (Auto) 67.6 Lymph % (Auto) 15.2 L [place] % (Auto) 12.0 H Eos % (Auto) 4.0 Baso % (Auto) 0.8 Lymph # (Auto) 1.1 L [place] # (Auto) 0.9 Eos # (Auto) 0.3 Baso # (Auto) 0.1 Abs Immat Gran (auto) 0.03 Absolute Neuts (auto) 4.9 Absolute Nucleated RBC 0.000 Nucleated RBC % (auto) 0.0 Anion Gap 12 12 Estim Creat Clear Calc 31.5 Estimated GFR 32 Fasting Glucose 151 H D Calcium 8.0 L Iron 25 L TIBC 214 L % Saturation 12 L Unsat Iron Binding 189 Ferritin 334 H Total Bilirubin 0.3 AST 22 ALT 15 Alkaline Phosphatase 110 Total Protein 5.0 L Albumin 2.6 L Assessment and Plan (1) Acute hyponatremia: Status: Acute (2) Hypertension: Status: Acute Assessment and Plan: This is a 60-year-old male with past medical history of alcohol abuse with previous admissions for hypernatremia presents to the hospital found to have hypokalemia and hyponatremia 1.Hypernatremia Stable x multiple draws. Needs placement...consider review of [facility] meds when SNF 3.MAI ARB D/C secondary to rise in Creat; Gentle IVFs. 4.Hypertension ARB D/C'd...follow pressures 5. EToH abuse Phenobarb protocol..Continue Thiamine/Folate No signs W/D thus far DVT prophylaxis: Lovenox Quality Stroke Does the patient have a stroke diagnosis?: No VTE Prior VTE?: No VTE Risk Level:: Medical - moderate - high VTE Device Contraindication: Treatment Not Indicated VTE Drug Contraindication: N/A - Med Ordered
[2021-03-05] MEDS: Melatonin 3 MG TABLET 6 MG PO (20:06)
[2021-03-05] MEDS: Enoxaparin Sodium 40 MG/0.4 ML SYRINGE SUBCUT (20:07)
[2021-03-05 20:43] LABS: Appearance Urine CLEAR; Color Urine YELLOW; Glucose Urine UA NEG (NEG); Leukocyte Esterase Urine NEG (NEG); Nitrite Urine NEG (NEG); Urine Blood 1+ (NEG); Urine Ketones NEG (NEG); Urine Protein 2+ MG/DL (NEG-TRACE)
[2021-03-05 21:13] LABS: Creatinine Urine 104.27 mg/dL; Sodium Urine Random < 20.0 mmol/L
[2021-03-05 21:30] LABS: Bacteria Urine 1+ /LPF; Squamous Epithelial Cell Urine 1+ /LPF
[2021-03-06] VITALS (9 sets, daily range): BP systolic 147–183; BP diastolic 61–103; PULSE 70–80; RESP 16–18; TEMP 36.2–36.7; O2SAT 94–100
[2021-03-06 06:32] LABS: MANUAL DIFF FLAG NO
[2021-03-06 06:42] LABS: Basophils Absolute Auto 0.1 X10*3/uL (0.0-0.2); Basophils Percent Auto 1.1 % (0-2); Eosinophils Absolute Auto 0.3 X10*3/uL (0.0-0.4); Eosinophils Percent Auto 3.6 % (0-4); Hematocrit 24.2 % (42.0-52.0); Imm Gran Abs Auto 0.04 X10*3/uL (0.00-0.03); Imm Gran Pct Auto 0.6 % (0.0-0.4); Lymphocytes Absolute Auto 1.1 X10*3/uL (1.2-4.9); Lymphocytes Percent Auto 15.4 % (20-40); Mean Corpuscular HGB Conc 33.1 g/dl (31.0-36.0); Mean Corpuscular Hemoglobin 31.3 pg (27.0-33.0); Mean Corpuscular Volume 94.5 fL (80.0-98.0); Mean Platelet Volume 9.6 fL (9.4-12.4); Monocytes Absolute Auto 1.1 X10*3/uL (0.1-1.2); Monocytes Percent Auto 14.6 % (2-11); Neutrophils Absolute Auto 4.7 x10*3/uL (2.0-8.3); Neutrophils Percent Auto 64.7 % (45-73); Platelet Count 218 X10*3/uL (160-400); Red Blood Count 2.56 X10*6/uL (4.60-5.80); Red Cell Distribution Width 14.8 % (11.0-16.0); White Blood Count 7.2 X10*3/uL (4.8-10.8)
[2021-03-06 07:02] LABS: Alanine Aminotransferase 15 U/L (0-40); Albumin Level 2.7 g/dL (3.5-5.0); Alkaline Phosphatase 107 U/L (39-117); Anion Gap 14 (12-20); Aspartate Amino Transferase 23 U/L (5-37); Bilirubin Total 0.3 mg/dL (0.0-1.0); Blood Urea Nitrogen 30 mg/dL (9-16); Calcium 7.7 mg/dL (8.4-10.2); Carbon Dioxide 29 mmol/L (22-29); Chloride 91 mmol/L (96-108); Creatinine Clr Calc Pharmacy 34.6; Estimated Glomerular Filt Rate 36; Glucose Fasting 111 mg/dL (60-99); Potassium 3.7 mmol/L (3.3-5.1); Sodium 130 mmol/L (135-145); Total Protein 5.3 g/dL (6.5-8.0)
[2021-03-06 08:14] LABS: EOS Counted 26 CELLS; EOS QC POS YES; EOS Stain Quality OK YES; WBC, Counted 100 CELLS
--- NOTE | 2021-03-06 09:58 | PM.PNNEP ---
Subjective Subjective Date of Service: 03/06/21 Principal diagnosis: hypoNa, HTN, MAI Interval history: seen and examined discussed with medical attending no complaints Physical Exam Vital Signs: Vital Signs: Last Vital Signs Temp 98.0 F 03/06/21 07:26 Pulse 77 03/06/21 07:26 Resp 18 03/06/21 07:26 BP 168/88 H 03/06/21 07:26 Pulse Ox 95 03/06/21 07:26 BMI result Body Mass Index 20.2 Const: General: no acute distress Neck: Neck: Yes supple Resp: Auscultation: diminished lung sounds Cardio: Heart sounds: S1 normal heart sound present and S2 normal heart sound present GI: Palpation (GI): Soft to palpation and nontender Extrem: General: No edema Objective Data Labs CBC & Chem 7: 03/06/21 06:09 03/06/21 06:09 Labs: Laboratory Results - last 24 hr 03/05/21 03/05/21 03/05/21 06:14 20:15 20:15 WBC RBC Hgb Hct MCV MCH MCHC RDW Plt Count MPV Immature Gran % (Auto) Neut % (Auto) Lymph % (Auto) [place] % (Auto) Eos % (Auto) Baso % (Auto) Lymph # (Auto) [place] # (Auto) Eos # (Auto) Baso # (Auto) Abs Immat Gran (auto) Absolute Neuts (auto) Absolute Nucleated RBC Nucleated RBC % (auto) Sodium Potassium Chloride Carbon Dioxide Anion Gap BUN Creatinine Estim Creat Clear Calc Estimated GFR Fasting Glucose Calcium Iron 25 L TIBC 214 L % Saturation 12 L Unsat Iron Binding 189 Ferritin 334 H Total Bilirubin AST ALT Alkaline Phosphatase Total Protein Albumin Urine Color YELLOW Urine Appearance CLEAR Urine pH 6.0 Ur Specific [place] 1.010 Urine Protein 2+ H Urine Glucose (UA) NEG Urine Ketones NEG Urine Blood 1+ H Urine Nitrite NEG Ur Leukocyte Esterase NEG Urine RBC 10-14 H Urine WBC 1-4 Ur Squamous Epith Cells 1+ Urine Bacteria 1+ Granular Casts 1-4 Urine Eosinophils % 26.0 Ur Random Sodium Urine Creatinine 03/05/21 03/06/21 03/06/21 20:15 06:09 06:09 WBC 7.2 RBC 2.56 L Hgb 8.0 L Hct 24.2 L MCV 94.5 MCH 31.3 MCHC 33.1 RDW 14.8 Plt Count 218 MPV 9.6 Immature Gran % (Auto) 0.6 H Neut % (Auto) 64.7 Lymph % (Auto) 15.4 L [place] % (Auto) 14.6 H Eos % (Auto) 3.6 Baso % (Auto) 1.1 Lymph # (Auto) 1.1 L [place] # (Auto) 1.1 Eos # (Auto) 0.3 Baso # (Auto) 0.1 Abs Immat Gran (auto) 0.04 H Absolute Neuts (auto) 4.7 Absolute Nucleated RBC 0.000 Nucleated RBC % (auto) 0.0 Sodium 130 L Potassium 3.7 Chloride 91 L Carbon Dioxide 29 Anion Gap 14 BUN 30 H Creatinine 1.93 H Estim Creat Clear Calc 34.6 Estimated GFR 36 Fasting Glucose 111 H Calcium 7.7 L Iron TIBC % Saturation Unsat Iron Binding Ferritin Total Bilirubin 0.3 AST 23 ALT 15 Alkaline Phosphatase 107 Total Protein 5.3 L Albumin 2.7 L Urine Color Urine Appearance Urine pH Ur Specific [place] Urine Protein Urine Glucose (UA) Urine Ketones Urine Blood Urine Nitrite Ur Leukocyte Esterase Urine RBC Urine WBC Ur Squamous Epith Cells Urine Bacteria Granular Casts Urine Eosinophils % Ur Random Sodium < 20.0 Urine Creatinine 104.27 Microbiology Microbiology Results: Microbiology 03/01/21 13:01 Blood - Venous Blood Culture - Preliminary No growth after 48 hours. 03/01/21 13:01 Blood - Venous Blood Culture - Preliminary No growth after 48 hours. Procedures Date of Service Date of Service: 03/06/21 Assessment & Plan Assessment and plan (1) MAI (acute kidney injury): Status: Acute (2) Hyponatremia: Status: Acute (3) HENNY (renal artery stenosis): Status: Acute (4) Hypertensive urgency: Status: Acute Assessment and Plan: Scr stable CI-MAI (s/p CTA) normal baseline kidney function recurrent hyponatremia mixed picture including: hypovolemia, low solute intake, inappropriate ADH and excess oral fluid intake CTA showed left renal artery stenosis but left kidney atrophic suggests chronic obstruction and no benefit from surgical intervention history of high PA/PRA REC consider d/c SSRI and/or oxcarbazepine (both can cause SIADH) restrict fluid intake hold ARB consider adding low dose CCB if BP remains elevated follow kidney function and electrolytes Time Spent With Patient Time: Total time spent is greater than 50% in coordination of care (as documented) at patient's floor/unit and/or counseling patient: Progress Note: Quality Stroke Does the patient have a stroke diagnosis?: No
[2021-03-06] MEDS: OXcarbazepine 150 MG TABLET PO ×3 (10:23→20:25)
[2021-03-06] MEDS: Multivitamin TABLET 1 TAB PO (10:23)
[2021-03-06] MEDS: Aspirin Enteric Coated 81 MG TABLET.DR PO (10:23)
[2021-03-06] MEDS: Folic Acid 1 MG TABLET PO (10:23)
[2021-03-06] MEDS: Thiamine HCL 100 MG TABLET PO (10:23)
[2021-03-06] MEDS: carvediloL 12.5 MG TABLET PO ×2 (10:23→20:25)
[2021-03-06] MEDS: FLUoxetine HCl 20 MG CAPSULE 40 MG PO (10:23)
--- NOTE | 2021-03-06 11:37 | MHC.CLN ---
F/U CURRENT INTAKE APPEARS GOOD. NO NEW NUTRITION INTERVENTIONS AT THIS TIME.
--- NOTE | 2021-03-06 12:51 | HO.PM.IMPN ---
Subjective Subjective Date of Service: 03/06/21 Interval History: the patient was seen and evaluated this morning Laying in bed, feels better overall sodium level andKidney function improving No reported other overnight events. Systemic review: No fever, chills but has generalized weakness No chest pain, palpitation No shortness of breath or coughing No abdominal pain, nausea or vomiting No urinary symptoms No any rash or wounds Physical Exam Vital Signs: Vital Signs: Last Vital Signs Temp 97.6 F 03/06/21 12:08 Pulse 70 03/06/21 12:08 Resp 16 03/06/21 12:08 BP 157/61 H 03/06/21 12:08 Pulse Ox 100 03/06/21 12:08 BMI result Body Mass Index 20.2 Const: Other: Constitutional : Alert, oriented, not in distress Neck : Normal inspection, Supple Cardiovascular : RRR, S1 S2, no lower extremity edema Respiratory : Good bilateral air entry, no crackles, wheezes or rhonchi Gastrointestinal: soft, lax, Normal bowel sounds, Non tender Skin : Warm, Dry Neurological : Alert & oriented x3, No focal deficit Objective Data Active Medications Acetaminophen (Acetaminophen 325 Mg Tablet) 650 mg PO Q6H PRN PRN Reason: Pain, Mild (Pain Scale 1-3) Albuterol Sulfate (Albuterol Sulfate 90 Mcg 8 Gm Inhaler) 2 puff INHALE Q4H PRN PRN Reason: Shortness Of Breath Last Admin: 03/05/21 13:47 Dose: 2 puff Documented by: BI Aspirin (Aspirin Enteric Coated 81 Mg Tablet.) 81 mg PO DAILY [facility] Last Admin: 03/06/21 10:23 Dose: 81 mg Documented by: BIANCA Carvedilol (Carvedilol 12.5 Mg Tablet) 12.5 mg PO BID [facility]; Protocol Last Admin: 03/06/21 10:23 Dose: 12.5 mg Documented by: BIANCA Docusate Sodium (Docusate Sodium 100 Mg Capsule) 100 mg PO DAILY PRN PRN Reason: Constipation Last Admin: 03/05/21 08:33 Dose: 100 mg Documented by: BI Enoxaparin Sodium (Enoxaparin Sodium 40 Mg/0.4 Ml Syringe) 40 mg SUBCUT Q24H [facility] Last Admin: 03/05/21 20:07 Dose: 40 mg Documented by: TYRONE Fluoxetine HCl (Fluoxetine Hcl 20 Mg Capsule) 40 mg PO DAILY [facility] Last Admin: 03/06/21 10:23 Dose: 40 mg Documented by: BIANCA Folic Acid (Folic Acid 1 Mg Tablet) 1 mg PO DAILY [facility] Last Admin: 03/06/21 10:23 Dose: 1 mg Documented by: BIANCA Ceftriaxone Sodium 1 gm/ (Sodium Chloride) 50 mls @ 100 mls/hr IV Q24H [facility] Last Infusion: 03/05/21 14:35 Dose: 0 mls/hr Documented by: BI Azithromycin 500 mg/ Sodium (Chloride) 250 mls @ 125 mls/hr IV Q24H [facility] Last Infusion: 03/06/21 02:13 Dose: 0 mls/hr Documented by: TYRONE Labetalol HCl (Labetalol Hcl 100 Mg/20 Ml Vial) 20 mg IVPUSH Q20M PRN PRN Reason: SBP > 160 Last Admin: 03/04/21 06:39 Dose: 20 mg Documented by: ORLANDO Melatonin (Melatonin 3 Mg Tablet) 6 mg PO BEDTIME PRN PRN Reason: Insomnia Last Admin: 03/05/21 20:06 Dose: 6 mg Documented by: TYRONE Multivitamins/Vitamin C (Multivitamin Tablet) 1 tab PO DAILY [facility] Last Admin: 03/06/21 10:23 Dose: 1 tab Documented by: BIANCA Ondansetron HCl (Ondansetron Hcl 4 Mg/2 Ml Vial) 4 mg IVPUSH Q8H PRN PRN Reason: Nausea and Vomiting Oxcarbazepine (Oxcarbazepine 150 Mg Tablet) 150 mg PO TID [facility] Last Admin: 03/06/21 10:23 Dose: 150 mg Documented by: BIANCA Pharmacy Consult (Consult Rx Perform Med Rec) 1 each MISCELLANE ONCE PRN PRN Reason: Consult order Sodium Chloride (0.9 % Sodium Chloride Flush 3 Ml Syringe) 3 ml IVFLUSH QSHIFT [facility] Last Admin: 03/06/21 09:14 Dose: Not Given Documented by: BIANCA Non-Admin Reason: IV Running Thiamine HCl (Thiamine Hcl 100 Mg Tablet) 100 mg PO DAILY [facility] Last Admin: 03/06/21 10:23 Dose: 100 mg Documented by: BIANCA Labs CBC & Chem 7: 03/06/21 06:09 03/06/21 06:09 Labs: Laboratory Results - last 24 hr 03/05/21 03/05/21 03/05/21 06:14 20:15 20:15 MCV MCH MCHC RDW Plt Count MPV Immature Gran % (Auto) Neut % (Auto) Lymph % (Auto) [place] % (Auto) Eos % (Auto) Baso % (Auto) Lymph # (Auto) [place] # (Auto) Eos # (Auto) Baso # (Auto) Abs Immat Gran (auto) Absolute Neuts (auto) Absolute Nucleated RBC Nucleated RBC % (auto) Anion Gap Estim Creat Clear Calc Estimated GFR Fasting Glucose Calcium Iron 25 L TIBC 214 L % Saturation 12 L Unsat Iron Binding 189 Ferritin 334 H Total Bilirubin AST ALT Alkaline Phosphatase Total Protein Albumin Urine Color YELLOW Urine Appearance CLEAR Urine pH 6.0 Ur Specific [place] 1.010 Urine Protein 2+ H Urine Glucose (UA) NEG Urine Ketones NEG Urine Blood 1+ H Urine Nitrite NEG Ur Leukocyte Esterase NEG Urine RBC 10-14 H Urine WBC 1-4 Ur Squamous Epith Cells 1+ Urine Bacteria 1+ Granular Casts 1-4 Urine Eosinophils % 26.0 Ur Random Sodium Urine Creatinine 03/05/21 03/06/21 03/06/21 20:15 06:09 06:09 MCV 94.5 MCH 31.3 MCHC 33.1 RDW 14.8 Plt Count 218 MPV 9.6 Immature Gran % (Auto) 0.6 H Neut % (Auto) 64.7 Lymph % (Auto) 15.4 L [place] % (Auto) 14.6 H Eos % (Auto) 3.6 Baso % (Auto) 1.1 Lymph # (Auto) 1.1 L [place] # (Auto) 1.1 Eos # (Auto) 0.3 Baso # (Auto) 0.1 Abs Immat Gran (auto) 0.04 H Absolute Neuts (auto) 4.7 Absolute Nucleated RBC 0.000 Nucleated RBC % (auto) 0.0 Anion Gap 14 Estim Creat Clear Calc 34.6 Estimated GFR 36 Fasting Glucose 111 H Calcium 7.7 L Iron TIBC % Saturation Unsat Iron Binding Ferritin Total Bilirubin 0.3 AST 23 ALT 15 Alkaline Phosphatase 107 Total Protein 5.3 L Albumin 2.7 L Urine Color Urine Appearance Urine pH Ur Specific [place] Urine Protein Urine Glucose (UA) Urine Ketones Urine Blood Urine Nitrite Ur Leukocyte Esterase Urine RBC Urine WBC Ur Squamous Epith Cells Urine Bacteria Granular Casts Urine Eosinophils % Ur Random Sodium < 20.0 Urine Creatinine 104.27 Assessment and Plan (1) Hyponatremia: Status: Acute (2) MAI (acute kidney injury): Status: Acute (3) Pneumonia: Status: Acute Assessment and Plan: This is a 60-year-old male with past medical history of alcohol abuse with previous admissions for hypernatremia presents to the hospital found to have hypokalemia and hyponatremia Hypernatremia improved to 130 continue fluid restriction Nephrology input appreciated, consider discontinuing fluoxetine or oxcarbazepine pneumonia Seen on chest images Blood cultures negative continue azithromycin and ceftriaxone day 5/7 MAI improving slowly ARB D/C secondary to rise in Creat; Hold IVFs. 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
[2021-03-06] MEDS: cefTRIAXone sodium 1 GM in 0.9 % Sodium Chloride 50 ML IV (14:02)
[2021-03-06] MEDS: 0.9 % Sodium Chloride Flush 3 ML SYRINGE IVFLUSH ×3 (14:03→20:26)
[2021-03-06] MEDS: amLODIPine Besylate 5 MG TABLET PO (14:03)
[2021-03-06] MEDS: Melatonin 3 MG TABLET 6 MG PO (20:26)
[2021-03-06] MEDS: Enoxaparin Sodium 40 MG/0.4 ML SYRINGE SUBCUT (20:26)
[2021-03-06] MEDS: Azithromycin 500 MG in 0.9 % Sodium Chloride 250 ML 125 MG IV ×2 (22:49)
[2021-03-07] VITALS (10 sets, daily range): BP systolic 159–185; BP diastolic 71–100; PULSE 68–185; RESP 15–20; TEMP 36.1–37; O2SAT 93–96
[2021-03-07 08:18] LABS: MANUAL DIFF FLAG NO
[2021-03-07 08:20] LABS: Basophils Absolute Auto 0.1 X10*3/uL (0.0-0.2); Basophils Percent Auto 1.3 % (0-2); Eosinophils Absolute Auto 0.3 X10*3/uL (0.0-0.4); Eosinophils Percent Auto 5.4 % (0-4); Hematocrit 24.6 % (42.0-52.0); Hemoglobin 8.1 g/dl (14.0-18.0); Imm Gran Abs Auto 0.02 X10*3/uL (0.00-0.03); Imm Gran Pct Auto 0.4 % (0.0-0.4); Lymphocytes Absolute Auto 0.9 X10*3/uL (1.2-4.9); Mean Corpuscular HGB Conc 32.9 g/dl (31.0-36.0); Mean Corpuscular Volume 94.3 fL (80.0-98.0); Mean Platelet Volume 9.1 fL (9.4-12.4); Monocytes Absolute Auto 0.8 X10*3/uL (0.1-1.2); Monocytes Percent Auto 14.8 % (2-11); Neutrophils Absolute Auto 3.4 x10*3/uL (2.0-8.3); Neutrophils Percent Auto 62.1 % (45-73); Platelet Count 247 X10*3/uL (160-400); Red Blood Count 2.61 X10*6/uL (4.60-5.80); Red Cell Distribution Width 14.6 % (11.0-16.0); White Blood Count 5.4 X10*3/uL (4.8-10.8)
[2021-03-07 08:38] LABS: Alanine Aminotransferase 18 U/L (0-40); Albumin Level 2.8 g/dL (3.5-5.0); Alkaline Phosphatase 109 U/L (39-117); Anion Gap 12 (12-20); Aspartate Amino Transferase 24 U/L (5-37); Bilirubin Total 0.3 mg/dL (0.0-1.0); Blood Urea Nitrogen 27 mg/dL (9-16); Calcium 8.1 mg/dL (8.4-10.2); Carbon Dioxide 32 mmol/L (22-29); Chloride 92 mmol/L (96-108); Creatinine Clr Calc Pharmacy 41.7; Estimated Glomerular Filt Rate 45; Glucose Fasting 113 mg/dL (60-99); Potassium 3.6 mmol/L (3.3-5.1); Sodium 132 mmol/L (135-145); Total Protein 5.5 g/dL (6.5-8.0)
--- NOTE | 2021-03-07 09:04 | P.PNNP_ITS ---
Subjective Subjective Date of Service: 03/07/21 Principal diagnosis: hypoNa, HTN, MAI Interval history: seen and examined events reviewed no complaints Physical Exam Vital Signs: Vital Signs: Last Vital Signs Temp 97.8 F 03/07/21 07:28 Pulse 79 03/07/21 07:28 Resp 18 03/07/21 07:28 BP 185/90 H 03/07/21 07:28 Pulse Ox 95 03/07/21 07:28 BMI result Body Mass Index 20.2 Const: General: no acute distress Neck: Neck: Yes supple Resp: Auscultation: diminished lung sounds Cardio: Heart sounds: S1 normal heart sound present and S2 normal heart sound present GI: Palpation (GI): Soft to palpation and nontender Extrem: General: No edema Objective Data Labs CBC & Chem 7: 03/07/21 07:35 03/07/21 07:35 Labs: Laboratory Results - last 24 hr 03/07/21 03/07/21 07:35 07:35 WBC 5.4 RBC 2.61 L Hgb 8.1 L Hct 24.6 L MCV 94.3 MCH 31.0 MCHC 32.9 RDW 14.6 Plt Count 247 MPV 9.1 L Immature Gran % (Auto) 0.4 Neut % (Auto) 62.1 Lymph % (Auto) 16.0 L [place] % (Auto) 14.8 H Eos % (Auto) 5.4 H Baso % (Auto) 1.3 Lymph # (Auto) 0.9 L [place] # (Auto) 0.8 Eos # (Auto) 0.3 Baso # (Auto) 0.1 Abs Immat Gran (auto) 0.02 Absolute Neuts (auto) 3.4 Absolute Nucleated RBC 0.000 Nucleated RBC % (auto) 0.0 Sodium 132 L Potassium 3.6 Chloride 92 L Carbon Dioxide 32 H Anion Gap 12 BUN 27 H Creatinine 1.60 H Estim Creat Clear Calc 41.7 Estimated GFR 45 Fasting Glucose 113 H Calcium 8.1 L Total Bilirubin 0.3 AST 24 ALT 18 Alkaline Phosphatase 109 Total Protein 5.5 L Albumin 2.8 L Microbiology Microbiology Results: Microbiology 03/01/21 13:01 Blood - Venous Blood Culture - Final No growth after 5 days. 03/01/21 13:01 Blood - Venous Blood Culture - Final No growth after 5 days. Procedures Date of Service Date of Service: 03/07/21 Assessment & Plan Assessment and plan (1) MAI (acute kidney injury): Status: Acute (2) Hyponatremia: Status: Acute (3) HENNY (renal artery stenosis): Status: Acute (4) Hypertensive urgency: Status: Acute Assessment and Plan: kidney function and Sna better CI-MAI (s/p CTA) normal baseline kidney function recurrent hyponatremia mixed picture including: hypovolemia, low solute intake, inappropriate ADH and excess oral fluid intake CTA showed left renal artery stenosis but left kidney atrophic suggests chronic obstruction and no benefit from surgical intervention history of high PA/PRA elevated BP REC increase amlodipine to 10 mg if BP remains high consider d/c SSRI and/or oxcarbazepine (both can cause SIADH) restrict fluid intake hold ARB follow kidney function and electrolytes Time Spent With Patient Time: Total time spent is greater than 50% in coordination of care (as documented) at patient's floor/unit and/or counseling patient: Progress Note: Quality Stroke Does the patient have a stroke diagnosis?: No
[2021-03-07] MEDS: carvediloL 12.5 MG TABLET PO ×2 (09:08→11:59)
[2021-03-07] MEDS: Thiamine HCL 100 MG TABLET PO (09:08)
[2021-03-07] MEDS: FLUoxetine HCl 20 MG CAPSULE 40 MG PO (09:08)
[2021-03-07] MEDS: 0.9 % Sodium Chloride Flush 3 ML SYRINGE IVFLUSH ×2 (09:08→21:28)
[2021-03-07] MEDS: Aspirin Enteric Coated 81 MG TABLET.DR PO (09:08)
[2021-03-07] MEDS: OXcarbazepine 150 MG TABLET PO ×3 (09:08→21:24)
[2021-03-07] MEDS: Folic Acid 1 MG TABLET PO (09:09)
[2021-03-07] MEDS: Multivitamin TABLET 1 TAB PO (09:09)
[2021-03-07] MEDS: amLODIPine Besylate 5 MG TABLET PO ×2 (09:09→11:59)
[2021-03-07] MEDS: Albuterol Sulfate 90 MCG 8 GM INHALER 2 PUFF INHALE (09:11)
--- NOTE | 2021-03-07 09:37 | MHC.CM.PN ---
Per MD's request, CM met with Patient to discuss a dc to a [facility]; Patient does not want to go to a [facility] and is requesting STR in a facility (also what PT is recommending). Several SNF/STR referrals have been made and CM updated those referrals today and will follow for dc planning.
--- NOTE | 2021-03-07 11:02 | HO.PM.IMPN ---
Subjective Subjective Date of Service: 03/07/21 Interval History: the patient was seen and evaluated this morning Laying in bed, feels better overall sodium level and kidney function improving No reported other overnight events. Systemic review: No fever, chills but has generalized weakness No chest pain, palpitation No shortness of breath or coughing No abdominal pain, nausea or vomiting No urinary symptoms No any rash or wounds Physical Exam Vital Signs: Vital Signs: Last Vital Signs Temp 97.8 F 03/07/21 07:28 Pulse 79 03/07/21 09:09 Resp 18 03/07/21 07:28 BP 185/90 H 03/07/21 09:09 Pulse Ox 95 03/07/21 07:28 BMI result Body Mass Index 20.2 Const: Other: Constitutional : Alert, oriented, not in distress Neck : Normal inspection, Supple Cardiovascular : RRR, S1 S2, no lower extremity edema Respiratory : Good bilateral air entry, no crackles, wheezes or rhonchi Gastrointestinal: soft, lax, Normal bowel sounds, Non tender Skin : Warm, Dry Neurological : Alert & oriented x3, No focal deficit Objective Data Active Medications Acetaminophen (Acetaminophen 325 Mg Tablet) 650 mg PO Q6H PRN PRN Reason: Pain, Mild (Pain Scale 1-3) Albuterol Sulfate (Albuterol Sulfate 90 Mcg 8 Gm Inhaler) 2 puff INHALE Q4H PRN PRN Reason: Shortness Of Breath Last Admin: 03/07/21 09:11 Dose: 2 puff Documented by: BI Amlodipine Besylate (Amlodipine Besylate 5 Mg Tablet) 5 mg PO DAILY [facility]; Protocol Last Admin: 03/07/21 09:09 Dose: 5 mg Documented by: BI Aspirin (Aspirin Enteric Coated 81 Mg Tablet.) 81 mg PO DAILY [facility] Last Admin: 03/07/21 09:08 Dose: 81 mg Documented by: BI Carvedilol (Carvedilol 12.5 Mg Tablet) 12.5 mg PO BID [facility]; Protocol Last Admin: 03/07/21 09:08 Dose: 12.5 mg Documented by: BI Docusate Sodium (Docusate Sodium 100 Mg Capsule) 100 mg PO DAILY PRN PRN Reason: Constipation Last Admin: 03/05/21 08:33 Dose: 100 mg Documented by: BI Enoxaparin Sodium (Enoxaparin Sodium 40 Mg/0.4 Ml Syringe) 40 mg SUBCUT Q24H [facility] Last Admin: 03/06/21 20:26 Dose: 40 mg Documented by: LENORE Fluoxetine HCl (Fluoxetine Hcl 20 Mg Capsule) 40 mg PO DAILY [facility] Last Admin: 03/07/21 09:08 Dose: 40 mg Documented by: BI Folic Acid (Folic Acid 1 Mg Tablet) 1 mg PO DAILY [facility] Last Admin: 03/07/21 09:09 Dose: 1 mg Documented by: BI Ceftriaxone Sodium 1 gm/ (Sodium Chloride) 50 mls @ 100 mls/hr IV Q24H [facility] Last Infusion: 03/06/21 15:07 Dose: 0 mls/hr Documented by: BIANCA Azithromycin 500 mg/ Sodium (Chloride) 250 mls @ 125 mls/hr IV Q24H [facility] Last Infusion: 03/07/21 00:49 Dose: 0 mls/hr Documented by: LENORE Labetalol HCl (Labetalol Hcl 100 Mg/20 Ml Vial) 20 mg IVPUSH Q20M PRN PRN Reason: SBP > 160 Last Admin: 03/04/21 06:39 Dose: 20 mg Documented by: ORLANDO Melatonin (Melatonin 3 Mg Tablet) 6 mg PO BEDTIME PRN PRN Reason: Insomnia Last Admin: 03/06/21 20:26 Dose: 6 mg Documented by: LENORE Multivitamins/Vitamin C (Multivitamin Tablet) 1 tab PO DAILY [facility] Last Admin: 03/07/21 09:09 Dose: 1 tab Documented by: BI Ondansetron HCl (Ondansetron Hcl 4 Mg/2 Ml Vial) 4 mg IVPUSH Q8H PRN PRN Reason: Nausea and Vomiting Oxcarbazepine (Oxcarbazepine 150 Mg Tablet) 150 mg PO TID [facility] Last Admin: 03/07/21 09:08 Dose: 150 mg Documented by: BI Pharmacy Consult (Consult Rx Perform Med Rec) 1 each MISCELLANE ONCE PRN PRN Reason: Consult order Sodium Chloride (0.9 % Sodium Chloride Flush 3 Ml Syringe) 3 ml IVFLUSH QSHIFT [facility] Last Admin: 03/07/21 09:08 Dose: 3 ml Documented by: BI Thiamine HCl (Thiamine Hcl 100 Mg Tablet) 100 mg PO DAILY [facility] Last Admin: 03/07/21 09:08 Dose: 100 mg Documented by: BI Labs CBC & Chem 7: 03/07/21 07:35 03/07/21 07:35 Labs: Laboratory Results - last 24 hr 03/07/21 03/07/21 07:35 07:35 MCV 94.3 MCH 31.0 MCHC 32.9 RDW 14.6 Plt Count 247 MPV 9.1 L Immature Gran % (Auto) 0.4 Neut % (Auto) 62.1 Lymph % (Auto) 16.0 L [place] % (Auto) 14.8 H Eos % (Auto) 5.4 H Baso % (Auto) 1.3 Lymph # (Auto) 0.9 L [place] # (Auto) 0.8 Eos # (Auto) 0.3 Baso # (Auto) 0.1 Abs Immat Gran (auto) 0.02 Absolute Neuts (auto) 3.4 Absolute Nucleated RBC 0.000 Nucleated RBC % (auto) 0.0 Anion Gap 12 Estim Creat Clear Calc 41.7 Estimated GFR 45 Fasting Glucose 113 H Calcium 8.1 L Total Bilirubin 0.3 AST 24 ALT 18 Alkaline Phosphatase 109 Total Protein 5.5 L Albumin 2.8 L Microbiology Microbiology Results: Microbiology 03/01/21 13:01 Blood Culture - Final Blood - Venous No growth after 5 days. 03/01/21 13:01 Blood Culture - Final Blood - Venous No growth after 5 days. Assessment and Plan (1) Pneumonia: Status: Acute (2) Hyponatremia: Status: Acute (3) MAI (acute kidney injury): Status: Acute Assessment and Plan: This is a 60-year-old male with past medical history of alcohol abuse with previous admissions for hypernatremia presents to the hospital found to have hypokalemia and hyponatremia Hypernatremia improved to 132 continue fluid restriction Nephrology input appreciated, consider discontinuing fluoxetine or oxcarbazepine pneumonia Seen on chest images Blood cultures negative continue azithromycin and ceftriaxone day 6/7 MAI improving slowly , creatinine 1.6 today ARB D/C secondary to rise in Creat; Hold IVFs. CTA images consistent with left renal artery thrombus uncontrolled Hypertension ARB D/C'd To avoid Fred[place], arbs with left renal artery thrombosis, stenosis increase carvedilol to 25 b.i.d. Increase amlodipine to 10 mg daily Consider starting hydralazine next EToH abuse with risk of withdrawal in Phenobarb protocol..Continue Thiamine/Folate DVT prophylaxis: Lovenox Quality Stroke Does the patient have a stroke diagnosis?: No VTE Prior VTE?: No VTE Risk Level:: Medical - moderate - high VTE Device Contraindication: Treatment Not Indicated VTE Drug Contraindication: N/A - Med Ordered
[2021-03-07] MEDS: cefTRIAXone sodium 1 GM in 0.9 % Sodium Chloride 50 ML IV (13:47)
[2021-03-07] MEDS: carvediloL 12.5 MG TABLET 25 MG PO (21:24)
[2021-03-07] MEDS: Enoxaparin Sodium 40 MG/0.4 ML SYRINGE SUBCUT (21:24)
[2021-03-07] MEDS: Melatonin 3 MG TABLET 6 MG PO (21:27)
[2021-03-07] MEDS: Azithromycin 500 MG in 0.9 % Sodium Chloride 250 ML 125 MG IV (23:29)
[2021-03-08] VITALS (10 sets, daily range): BP systolic 133–182; BP diastolic 75–91; PULSE 68–86; RESP 14–18; TEMP 36.4–37.2; O2SAT 93–98
[2021-03-08 07:07] LABS: MANUAL DIFF FLAG NO
[2021-03-08 07:13] LABS: Basophils Absolute Auto 0.1 X10*3/uL (0.0-0.2); Basophils Percent Auto 1.4 % (0-2); Eosinophils Absolute Auto 0.3 X10*3/uL (0.0-0.4); Eosinophils Percent Auto 4.3 % (0-4); Hematocrit 25.6 % (42.0-52.0); Hemoglobin 8.6 g/dl (14.0-18.0); Imm Gran Abs Auto 0.03 X10*3/uL (0.00-0.03); Imm Gran Pct Auto 0.5 % (0.0-0.4); Lymphocytes Absolute Auto 1.1 X10*3/uL (1.2-4.9); Lymphocytes Percent Auto 16.8 % (20-40); Mean Corpuscular HGB Conc 33.6 g/dl (31.0-36.0); Mean Corpuscular Hemoglobin 31.3 pg (27.0-33.0); Mean Corpuscular Volume 93.1 fL (80.0-98.0); Mean Platelet Volume 9.3 fL (9.4-12.4); Monocytes Percent Auto 15.2 % (2-11); Neutrophils Absolute Auto 3.9 x10*3/uL (2.0-8.3); Neutrophils Percent Auto 61.8 % (45-73); Platelet Count 268 X10*3/uL (160-400); Red Blood Count 2.75 X10*6/uL (4.60-5.80); Red Cell Distribution Width 14.6 % (11.0-16.0); White Blood Count 6.3 X10*3/uL (4.8-10.8)
[2021-03-08 09:00] LABS: Alanine Aminotransferase 19 U/L (0-40); Alkaline Phosphatase 107 U/L (39-117); Anion Gap 14 (12-20); Aspartate Amino Transferase 21 U/L (5-37); Bilirubin Total 0.3 mg/dL (0.0-1.0); Blood Urea Nitrogen 20 mg/dL (9-16); Calcium 8.5 mg/dL (8.4-10.2); Carbon Dioxide 31 mmol/L (22-29); Chloride 93 mmol/L (96-108); Creatinine Clr Calc Pharmacy 49.1; Estimated Glomerular Filt Rate 54; Glucose Fasting 113 mg/dL (60-99); Sodium 134 mmol/L (135-145); Total Protein 5.8 g/dL (6.5-8.0)
--- NOTE | 2021-03-08 09:20 | MHC.CM.PN ---
PT IS MEDICALLY CLEARED HOWEVER, DCP IS CURRENTLY STR AND THERE ARE NO ACCEPTING FACILITIES. BARRIERS INCLUDE HOMELESSNESS AND PT NOT BEING VACCINATED AGAINST COVID-19. MORE FACILITIES WERE ADDED TO REFERRAL TODAY.
--- NOTE | 2021-03-08 10:12 | PM.PNNEP ---
Subjective Subjective Date of Service: 03/08/21 Principal diagnosis: hypoNa, HTN, MAI Interval history: seen and examined no complaints Physical Exam Vital Signs: Vital Signs: Last Vital Signs Temp 97.5 F 03/08/21 08:00 Pulse 86 03/08/21 08:00 Resp 18 03/08/21 08:00 BP 182/90 H 03/08/21 08:00 Pulse Ox 96 03/08/21 08:00 BMI result Body Mass Index 20.2 Const: General: no acute distress Neck: Neck: Yes supple Resp: Auscultation: diminished lung sounds Cardio: Heart sounds: S1 normal heart sound present and S2 normal heart sound present GI: Palpation (GI): Soft to palpation and nontender Extrem: General: No edema Objective Data Labs CBC & Chem 7: 03/08/21 06:59 03/08/21 08:29 Labs: Laboratory Results - last 24 hr 03/08/21 03/08/21 06:59 08:29 WBC 6.3 RBC 2.75 L Hgb 8.6 L Hct 25.6 L MCV 93.1 MCH 31.3 MCHC 33.6 RDW 14.6 Plt Count 268 MPV 9.3 L Immature Gran % (Auto) 0.5 H Neut % (Auto) 61.8 Lymph % (Auto) 16.8 L [place] % (Auto) 15.2 H Eos % (Auto) 4.3 H Baso % (Auto) 1.4 Lymph # (Auto) 1.1 L [place] # (Auto) 1.0 Eos # (Auto) 0.3 Baso # (Auto) 0.1 Abs Immat Gran (auto) 0.03 Absolute Neuts (auto) 3.9 Absolute Nucleated RBC 0.000 Nucleated RBC % (auto) 0.0 Sodium 134 L Potassium 4.0 Chloride 93 L Carbon Dioxide 31 H Anion Gap 14 BUN 20 H Creatinine 1.36 Estim Creat Clear Calc 49.1 Estimated GFR 54 Fasting Glucose 113 H Calcium 8.5 Total Bilirubin 0.3 AST 21 ALT 19 Alkaline Phosphatase 107 Total Protein 5.8 L Albumin 3.0 L Microbiology Microbiology Results: Microbiology 03/01/21 13:01 Blood - Venous Blood Culture - Final No growth after 5 days. 03/01/21 13:01 Blood - Venous Blood Culture - Final No growth after 5 days. Procedures Date of Service Date of Service: 03/08/21 Assessment & Plan Assessment and plan (1) MAI (acute kidney injury): Status: Acute (2) Hyponatremia: Status: Acute (3) HENNY (renal artery stenosis): Status: Acute (4) Hypertensive urgency: Status: Acute Assessment and Plan: kidney function and Sna continue to improve CI-MAI (s/p CTA) normal baseline kidney function recurrent hyponatremia mixed picture including: hypovolemia, low solute intake, inappropriate ADH and excess oral fluid intake CTA showed left renal artery stenosis but left kidney atrophic suggests chronic obstruction and no benefit from surgical intervention history of high PA/PRA BP remains high REC added hydralazine 25 mg bid restrict fluid intake hold ARB follow kidney function and electrolytes Time Spent With Patient Time: Total time spent is greater than 50% in coordination of care (as documented) at patient's floor/unit and/or counseling patient: Progress Note: Quality Stroke Does the patient have a stroke diagnosis?: No
[2021-03-08] MEDS: 0.9 % Sodium Chloride Flush 3 ML SYRINGE IVFLUSH ×3 (10:51→22:33)
[2021-03-08] MEDS: Thiamine HCL 100 MG TABLET PO (10:52)
[2021-03-08] MEDS: carvediloL 12.5 MG TABLET 25 MG PO ×2 (10:52→22:33)
[2021-03-08] MEDS: FLUoxetine HCl 20 MG CAPSULE 40 MG PO (10:53)
[2021-03-08] MEDS: Multivitamin TABLET 1 TAB PO (10:53)
[2021-03-08] MEDS: Aspirin Enteric Coated 81 MG TABLET.DR PO (10:53)
[2021-03-08] MEDS: amLODIPine Besylate 10 MG TABLET PO (10:53)
[2021-03-08] MEDS: OXcarbazepine 150 MG TABLET PO ×3 (10:53→22:26)
[2021-03-08] MEDS: Folic Acid 1 MG TABLET PO (10:54)
--- NOTE | 2021-03-08 11:20 | HO.PM.IMPN ---
Subjective Subjective Date of Service: 03/08/21 Interval History: the patient was seen and evaluated this morning Laying in bed, feels better overall Blood pressure still significantly elevated sodium level and kidney function improving back to normal almost No reported other overnight events. Systemic review: No fever, chills but has generalized weakness No chest pain, palpitation No shortness of breath or coughing No abdominal pain, nausea or vomiting No urinary symptoms No any rash or wounds Physical Exam Vital Signs: Vital Signs: Last Vital Signs Temp 99.0 F 03/08/21 11:15 Pulse 81 03/08/21 11:15 Resp 18 03/08/21 11:15 BP 179/91 H 03/08/21 11:15 Pulse Ox 96 03/08/21 11:15 BMI result Body Mass Index 20.2 Const: Other: Constitutional : Alert, oriented, not in distress Neck : Normal inspection, Supple Cardiovascular : RRR, S1 S2, no lower extremity edema Respiratory : Good bilateral air entry, no crackles, wheezes or rhonchi Gastrointestinal: soft, lax, Normal bowel sounds, Non tender Skin : Warm, Dry Neurological : Alert & oriented x3, No focal deficit Objective Data Active Medications Acetaminophen (Acetaminophen 325 Mg Tablet) 650 mg PO Q6H PRN PRN Reason: Pain, Mild (Pain Scale 1-3) Albuterol Sulfate (Albuterol Sulfate 90 Mcg 8 Gm Inhaler) 2 puff INHALE Q4H PRN PRN Reason: Shortness Of Breath Last Admin: 03/07/21 09:11 Dose: 2 puff Documented by: BI Amlodipine Besylate (Amlodipine Besylate 10 Mg Tablet) 10 mg PO DAILY [facility]; Protocol Last Admin: 03/08/21 10:53 Dose: 10 mg Documented by: RONNIE Aspirin (Aspirin Enteric Coated 81 Mg Tablet.) 81 mg PO DAILY [facility] Last Admin: 03/08/21 10:53 Dose: 81 mg Documented by: RONNIE Carvedilol (Carvedilol 12.5 Mg Tablet) 25 mg PO BID [facility]; Protocol Last Admin: 03/08/21 10:52 Dose: 25 mg Documented by: RONNIE Docusate Sodium (Docusate Sodium 100 Mg Capsule) 100 mg PO DAILY PRN PRN Reason: Constipation Last Admin: 03/05/21 08:33 Dose: 100 mg Documented by: BI Enoxaparin Sodium (Enoxaparin Sodium 40 Mg/0.4 Ml Syringe) 40 mg SUBCUT Q24H [facility] Last Admin: 03/07/21 21:24 Dose: 40 mg Documented by: RUTH Fluoxetine HCl (Fluoxetine Hcl 20 Mg Capsule) 40 mg PO DAILY [facility] Last Admin: 03/08/21 10:53 Dose: 40 mg Documented by: RONNIE Folic Acid (Folic Acid 1 Mg Tablet) 1 mg PO DAILY [facility] Last Admin: 03/08/21 10:54 Dose: 1 mg Documented by: RONNIE Hydralazine HCl (Hydralazine Hcl 25 Mg Tablet) 25 mg PO BID [facility]; Protocol Ceftriaxone Sodium 1 gm/ (Sodium Chloride) 50 mls @ 100 mls/hr IV Q24H [facility] Last Infusion: 03/07/21 14:30 Dose: 0 mls/hr Documented by: BI Azithromycin 500 mg/ Sodium (Chloride) 250 mls @ 125 mls/hr IV Q24H [facility] Last Infusion: 03/08/21 01:40 Dose: 0 mls/hr Documented by: RUTH Labetalol HCl (Labetalol Hcl 100 Mg/20 Ml Vial) 20 mg IVPUSH Q20M PRN PRN Reason: SBP > 160 Last Admin: 03/04/21 06:39 Dose: 20 mg Documented by: ORLANDO Melatonin (Melatonin 3 Mg Tablet) 6 mg PO BEDTIME PRN PRN Reason: Insomnia Last Admin: 03/07/21 21:27 Dose: 6 mg Documented by: RUTH Multivitamins/Vitamin C (Multivitamin Tablet) 1 tab PO DAILY [facility] Last Admin: 03/08/21 10:53 Dose: 1 tab Documented by: RONNIE Ondansetron HCl (Ondansetron Hcl 4 Mg/2 Ml Vial) 4 mg IVPUSH Q8H PRN PRN Reason: Nausea and Vomiting Oxcarbazepine (Oxcarbazepine 150 Mg Tablet) 150 mg PO TID [facility] Last Admin: 03/08/21 10:53 Dose: 150 mg Documented by: RONNIE Pharmacy Consult (Consult Rx Perform Med Rec) 1 each MISCELLANE ONCE PRN PRN Reason: Consult order Sodium Chloride (0.9 % Sodium Chloride Flush 3 Ml Syringe) 3 ml IVFLUSH QSHIFT [facility] Last Admin: 03/08/21 10:51 Dose: 3 ml Documented by: RONNIE Thiamine HCl (Thiamine Hcl 100 Mg Tablet) 100 mg PO DAILY [facility] Last Admin: 03/08/21 10:52 Dose: 100 mg Documented by: RONNIE Labs CBC & Chem 7: 03/08/21 06:59 03/08/21 08:29 Labs: Laboratory Results - last 24 hr 03/08/21 03/08/21 06:59 08:29 MCV 93.1 MCH 31.3 MCHC 33.6 RDW 14.6 Plt Count 268 MPV 9.3 L Immature Gran % (Auto) 0.5 H Neut % (Auto) 61.8 Lymph % (Auto) 16.8 L Citrus % (Auto) 15.2 H Eos % (Auto) 4.3 H Baso % (Auto) 1.4 Lymph # (Auto) 1.1 L Citrus # (Auto) 1.0 Eos # (Auto) 0.3 Baso # (Auto) 0.1 Abs Immat Gran (auto) 0.03 Absolute Neuts (auto) 3.9 Absolute Nucleated RBC 0.000 Nucleated RBC % (auto) 0.0 Anion Gap 14 Estim Creat Clear Calc 49.1 Estimated GFR 54 Fasting Glucose 113 H Calcium 8.5 Total Bilirubin 0.3 AST 21 ALT 19 Alkaline Phosphatase 107 Total Protein 5.8 L Albumin 3.0 L Assessment and Plan (1) Pneumonia: Status: Acute (2) HENNY (renal artery stenosis): Status: Acute (3) Hyponatremia: Status: Acute (4) MAI (acute kidney injury): Status: Acute (5) Atherosclerotic cardiovascular disease: Status: Acute (6) Hypertensive urgency: Status: Acute Assessment and Plan: This is a 60-year-old male with past medical history of alcohol abuse with previous admissions for hypernatremia presents to the hospital found to have hypokalemia and hyponatremia Hyponatremia improved to 134 continue fluid restriction Nephrology input appreciated, consider discontinuing fluoxetine or oxcarbazepine ( to discuss with PCP ) as both should be decreased gradually if you want to stop any of the pneumonia Seen on chest images Blood cultures negative Finished azithromycin and ceftriaxone day 7 MAI improving slowly , creatinine 1.2 today ARB D/C secondary to rise in Creat; Hold IVFs. CTA images consistent with left renal artery thrombus uncontrolled Hypertension, HTN urgency ARB D/C'd To avoid Fredrick, arbs with left renal artery thrombosis, stenosis Increased carvedilol to 25 b.i.d. Increased amlodipine to 10 mg daily Started hydralazine 25 b.i.d., to increase to 50 t.i.d. EToH abuse with risk of withdrawal in Phenobarb protocol.. Continue Thiamine/Folate DVT prophylaxis: Lovenox Quality Stroke Does the patient have a stroke diagnosis?: No VTE Prior VTE?: No VTE Risk Level:: Medical - moderate - high VTE Device Contraindication: Treatment Not Indicated VTE Drug Contraindication: N/A - Med Ordered
[2021-03-08] MEDS: hydrALAZINE HCl 50 MG TABLET PO ×2 (11:44→22:26)
[2021-03-08] MEDS: cefTRIAXone sodium 1 GM in 0.9 % Sodium Chloride 50 ML IV (15:21)
[2021-03-08] MEDS: Enoxaparin Sodium 40 MG/0.4 ML SYRINGE SUBCUT (22:26)
[2021-03-08] MEDS: Atorvastatin Calcium 40 MG TABLET PO (22:26)
[2021-03-08] MEDS: Azithromycin 500 MG in 0.9 % Sodium Chloride 250 ML 125 MG IV (22:43)
[2021-03-08] MEDS: Melatonin 3 MG TABLET 6 MG PO (22:52)
[2021-03-09] VITALS (7 sets, daily range): BP systolic 143–190; BP diastolic 68–98; PULSE 67–85; RESP 18–20; TEMP 35.8–36.9; O2SAT 94–97
[2021-03-09] MEDS: Thiamine HCL 100 MG TABLET PO (09:45)
[2021-03-09] MEDS: Multivitamin TABLET 1 TAB PO (09:45)
[2021-03-09] MEDS: hydrALAZINE HCl 50 MG TABLET PO (09:45)
[2021-03-09] MEDS: OXcarbazepine 150 MG TABLET PO ×3 (09:45→21:07)
[2021-03-09] MEDS: amLODIPine Besylate 10 MG TABLET PO (09:45)
[2021-03-09] MEDS: FLUoxetine HCl 20 MG CAPSULE 40 MG PO (09:45)
[2021-03-09] MEDS: carvediloL 12.5 MG TABLET 25 MG PO ×2 (09:45→21:07)
[2021-03-09] MEDS: Aspirin Enteric Coated 81 MG TABLET.DR PO (09:46)
[2021-03-09] MEDS: 0.9 % Sodium Chloride Flush 3 ML SYRINGE IVFLUSH ×3 (09:46→21:11)
[2021-03-09] MEDS: Folic Acid 1 MG TABLET PO (09:46)
--- NOTE | 2021-03-09 10:36 | P.PNNP_ITS ---
Subjective Subjective Date of Service: 03/09/21 Principal diagnosis: hypoNa, HTN, MAI Interval history: the patient was seen and evaluated this morning Laying in bed, feels better overall Blood pressure still significantly elevated sodium level and kidney function improving back to normal almost No reported other overnight events. Systemic review: No fever, chills but has generalized weakness No chest pain, palpitation No shortness of breath or coughing No abdominal pain, nausea or vomiting No urinary symptoms No any rash or wounds Physical Exam Vital Signs: Vital Signs: Last Vital Signs Temp 96.8 F 03/09/21 07:10 Pulse 78 03/09/21 07:10 Resp 18 03/09/21 07:10 BP 160/90 H 03/09/21 07:10 Pulse Ox 97 03/09/21 07:10 BMI result Body Mass Index 20.2 Const: Other: Constitutional : Alert, oriented, not in distress Neck : Normal inspection, Supple Cardiovascular : RRR, S1 S2, no lower extremity edema Respiratory : Good bilateral air entry, no crackles, wheezes or rhonchi Gastrointestinal: soft, lax, Normal bowel sounds, Non tender Skin : Warm, Dry Neurological : Alert & oriented x3, No focal deficit General: cooperative and no acute distress Orientation/consciousness: patient oriented x3 HENMT: Other: Unremarkable Eyes: General: appearance normal, both eyes and all related structures Pupils: Equal, round and reactive pupils present Neck: Neck: Yes normal visual inspection and Yes supple Chest: Chest palpation & inspection: normal inspection of the chest Resp: Other: clear to auscultation bilaterally with scant crackles at bases Effort & Inspection: normal respiratory effort Auscultation: clear to auscultation bilaterally and diminished lung sounds Cardio: Other: no S4; positive S1-S2; no S3 murmurs rubs or gallop Palpation: normal PMI Rate: regular rate Rhythm: regular rhythm Heart sounds: S1 normal heart sound present, S2 normal heart sound present, no gal lops, no murmurs and no rubs GI: Other: soft nontender nondistended with normoactive bowel sounds Palpation (GI): Soft to palpation and nontender Auscultation: normal bowel sounds Back/Spine/Pelvis: Other: unremarkable Skin: General skin exam: no rashes or lesions noted Lesions: other Neuro: Other: cranial nerves 2-12 grossly intact as tested. Moves all extremities with equal power General: patient oriented x3 Cranial nerves: Yes Equal, round and reactive pupils present and Yes Other cranial nerve findings present Cognition (Neuro): normal cognition Extrem: Other: no edema bilateral General: Yes normal to inspection, Yes no pedal edema, No edema and Yes other Psych: Mental Status: other Objective Data Labs CBC & Chem 7: 03/08/21 06:59 03/08/21 08:29 Microbiology Microbiology Results: Microbiology 03/01/21 13:01 Blood - Venous Blood Culture - Final No growth after 5 days. 03/01/21 13:01 Blood - Venous Blood Culture - Final No growth after 5 days. Procedures Date of Service Date of Service: 03/09/21 Assessment & Plan Assessment and plan (1) Pneumonia: Status: Acute (2) HENNY (renal artery stenosis): Status: Acute (3) Hyponatremia: Status: Acute (4) MAI (acute kidney injury): Status: Acute (5) Atherosclerotic cardiovascular disease: Status: Acute (6) Hypertensive urgency: Status: Acute Assessment and Plan: This is a 60-year-old male with past medical history of alcohol abuse with previous admissions for hypernatremia presents to the hospital found to have hypokalemia and hyponatremia Hyponatremia improved to 134 continue fluid restriction Nephrology input appreciated, consider discontinuing fluoxetine or oxcarbazepine ( to discuss with PCP ) as both should be decreased gradually if you want to stop any of the pneumonia Seen on chest images Blood cultures negative Finished azithromycin and ceftriaxone day 09/17 MAI improving slowly , creatinine 1.2 today ARB D/C secondary to rise in Creat; Hold IVFs. CTA images consistent with left renal artery thrombus uncontrolled Hypertension, HTN urgency ARB D/C'd To avoid Fredrick, arbs with left renal artery thrombosis, stenosis Increased carvedilol to 25 b.i.d. Increased amlodipine to 10 mg daily spironolactone for bp stop hydralazine iv iron ordered Time Spent With Patient Time: Total time spent is greater than 50% in coordination of care (as documented) at patient's floor/unit and/or counseling patient: Progress Note: Quality Stroke Does the patient have a stroke diagnosis?: No
[2021-03-09] MEDS: Sodium Ferric Gluconat/Sucrose 125 MG in 0.9 % Sodium Chloride 100 ML 100 MG IV (11:37)
--- NOTE | 2021-03-09 14:44 | MHC.CLN ---
F/U INTAKE VARIABLE WITH MANY MEALS 100%. SKIN CONTINUES WITH STAGE I BILATERAL BUTTOCKS. DIET=REGULAR. NO NEW NUTRITION INTERVENTIONS AT THIS TIME.
--- NOTE | 2021-03-09 15:23 | MHC.CM.PN ---
PER ROUNDS PT IS READY FOR DC BED SEARCH IN P[[facility]
--- NOTE | 2021-03-09 15:46 | P.PNIM_ITS ---
Subjective Subjective Date of Service: 03/09/21 Interval History: no acute issues overnight Review of Systems denies chest pain Denies shortness of breath Denies nausea vomiting diarrhea Physical Exam Vital Signs: Vital Signs: Last Vital Signs Temp 96.5 F L 03/09/21 11:28 Pulse 71 03/09/21 11:28 Resp 18 03/09/21 11:28 BP 143/80 H 03/09/21 11:37 Pulse Ox 94 03/09/21 11:28 BMI result Body Mass Index 20.2 Const: Other: vague but no acute distress Resp: Other: clear to auscultation bilaterally with scant crackles at bases Cardio: Other: no S4; positive S1-S2; no S3 murmurs rubs or gallop GI: Other: soft nontender nondistended with normoactive bowel sounds Neuro: Other: cranial nerves 2-12 grossly intact as tested. Moves all extremities with equal power Extrem: Other: no edema bilateral Objective Data Active Medications Acetaminophen (Acetaminophen 325 Mg Tablet) 650 mg PO Q6H PRN PRN Reason: Pain, Mild (Pain Scale 1-3) Albuterol Sulfate (Albuterol Sulfate 90 Mcg 8 Gm Inhaler) 2 puff INHALE Q4H PRN PRN Reason: Shortness Of Breath Last Admin: 03/07/21 09:11 Dose: 2 puff Documented by: BI Amlodipine Besylate (Amlodipine Besylate 10 Mg Tablet) 10 mg PO DAILY [facility]; Protocol Last Admin: 03/09/21 09:45 Dose: 10 mg Documented by: ASHLEY Aspirin (Aspirin Enteric Coated 81 Mg Tablet.Dr) 81 mg PO DAILY [facility] Last Admin: 03/09/21 09:46 Dose: 81 mg Documented by: ASHLEY Atorvastatin Calcium (Atorvastatin Calcium 40 Mg Tablet) 40 mg PO BEDTIME [facility] Last Admin: 03/08/21 22:26 Dose: 40 mg Documented by: ANNIE Carvedilol (Carvedilol 12.5 Mg Tablet) 25 mg PO BID [facility]; Protocol Last Admin: 03/09/21 09:45 Dose: 25 mg Documented by: ASHLEY Docusate Sodium (Docusate Sodium 100 Mg Capsule) 100 mg PO DAILY PRN PRN Reason: Constipation Last Admin: 03/05/21 08:33 Dose: 100 mg Documented by: BI Enoxaparin Sodium (Enoxaparin Sodium 40 Mg/0.4 Ml Syringe) 40 mg SUBCUT Q24H [facility] Last Admin: 03/08/21 22:26 Dose: 40 mg Documented by: ANNIE Fluoxetine HCl (Fluoxetine Hcl 20 Mg Capsule) 40 mg PO DAILY [facility] Last Admin: 03/09/21 09:45 Dose: 40 mg Documented by: ASHLEY Folic Acid (Folic Acid 1 Mg Tablet) 1 mg PO DAILY [facility] Last Admin: 03/09/21 09:46 Dose: 1 mg Documented by: ASHLEY Ferric Sodium Gluconate Complex 125 mg/ Sodium Chloride 110 mls @ 100 mls/hr IV DAILY [facility] Stop: 03/11/21 10:05 Last Infusion: 03/09/21 13:05 Dose: 0 mls/hr Documented by: ASHLEY Labetalol HCl (Labetalol Hcl 100 Mg/20 Ml Vial) 20 mg IVPUSH Q20M PRN PRN Reason: SBP > 160 Last Admin: 03/04/21 06:39 Dose: 20 mg Documented by: ORLANDO Melatonin (Melatonin 3 Mg Tablet) 6 mg PO BEDTIME PRN PRN Reason: Insomnia Last Admin: 03/08/21 22:52 Dose: 6 mg Documented by: ANNIE Multivitamins/Vitamin C (Multivitamin Tablet) 1 tab PO DAILY [facility] Last Admin: 03/09/21 09:45 Dose: 1 tab Documented by: ASHLEY Ondansetron HCl (Ondansetron Hcl 4 Mg/2 Ml Vial) 4 mg IVPUSH Q8H PRN PRN Reason: Nausea and Vomiting Oxcarbazepine (Oxcarbazepine 150 Mg Tablet) 150 mg PO TID [facility] Last Admin: 03/09/21 14:47 Dose: 150 mg Documented by: ASHLEY Pharmacy Consult (Consult Rx Perform Med Rec) 1 each MISCELLANE ONCE PRN PRN Reason: Consult order Sodium Chloride (0.9 % Sodium Chloride Flush 3 Ml Syringe) 3 ml IVFLUSH QSHIFT [facility] Last Admin: 03/09/21 15:39 Dose: 3 ml Documented by: STEPHON Spironolactone (Spironolactone 25 Mg Tablet) 50 mg PO DAILY [facility]; Protocol Thiamine HCl (Thiamine Hcl 100 Mg Tablet) 100 mg PO DAILY [facility] Last Admin: 03/09/21 09:45 Dose: 100 mg Documented by: ASHLEY Labs CBC & Chem 7: 03/08/21 06:59 03/08/21 08:29 Assessment and Plan (1) Pneumonia: Status: Acute (2) Hyponatremia: Status: Acute (3) MAI (acute kidney injury): Status: Acute Assessment and Plan: This is a 60-year-old male with past medical history of alcohol abuse with previous admissions for hypernatremia presents to the hospital found to have hypokalemia and hyponatremia. 1.Hypernatremia Stable x multiple draws. Needs placement...consider review of [facility] meds when SNF. 2.MAI Resolved 3.Hypertension Acceptable control on current therapies 5. EToH abuse Phenobarb protocol..Continue Thiamine/Folate No signs W/D thus far DVT prophylaxis: Lovenox Quality Stroke Does the patient have a stroke diagnosis?: No VTE Prior VTE?: No VTE Risk Level:: Medical - moderate - high VTE Device Contraindication: Treatment Not Indicated VTE Drug Contraindication: N/A - Med Ordered
[2021-03-09] MEDS: Atorvastatin Calcium 40 MG TABLET PO (21:06)
[2021-03-09] MEDS: Enoxaparin Sodium 40 MG/0.4 ML SYRINGE SUBCUT (21:06)
[2021-03-10] VITALS (9 sets, daily range): BP systolic 148–180; BP diastolic 62–101; PULSE 69–83; RESP 16–20; TEMP 36.6–37.3; O2SAT 95–98
[2021-03-10] MEDS: Spironolactone 25 MG TABLET 50 MG PO (09:03)
[2021-03-10] MEDS: amLODIPine Besylate 10 MG TABLET PO (09:03)
[2021-03-10] MEDS: Folic Acid 1 MG TABLET PO (09:04)
[2021-03-10] MEDS: OXcarbazepine 150 MG TABLET PO ×3 (09:04→21:09)
[2021-03-10] MEDS: Thiamine HCL 100 MG TABLET PO (09:04)
[2021-03-10] MEDS: Aspirin Enteric Coated 81 MG TABLET.DR PO (09:04)
[2021-03-10] MEDS: FLUoxetine HCl 20 MG CAPSULE 40 MG PO (09:04)
[2021-03-10] MEDS: carvediloL 12.5 MG TABLET 25 MG PO ×2 (09:05→21:09)
[2021-03-10] MEDS: 0.9 % Sodium Chloride Flush 3 ML SYRINGE IVFLUSH ×2 (09:06→16:29)
[2021-03-10] MEDS: Multivitamin TABLET 1 TAB PO (09:06)
[2021-03-10] MEDS: Albuterol Sulfate 90 MCG 8 GM INHALER 2 PUFF INHALE (09:07)
[2021-03-10] MEDS: Sodium Ferric Gluconat/Sucrose 125 MG in 0.9 % Sodium Chloride 100 ML 100 MG IV (10:14)
--- NOTE | 2021-03-10 15:46 | HO.PM.IMPN ---
Subjective Subjective Date of Service: 03/10/21 Interval History: No acute issues overnight. Resting comfortably. No signs of alcohol withdrawal Review of Systems Denies chest pain Denies shortness of breath Denies nausea vomiting diarrhea Physical Exam Vital Signs: Vital Signs: Last Vital Signs Temp 99.2 F 03/10/21 15:14 Pulse 76 03/10/21 15:14 Resp 20 03/10/21 15:14 BP 173/99 H 03/10/21 15:14 Pulse Ox 95 03/10/21 15:14 BMI result Body Mass Index 20.2 Const: Other: vague but no acute distress Resp: Other: clear to auscultation bilaterally with scant crackles at bases Cardio: Other: no S4; positive S1-S2; no S3 murmurs rubs or gallop GI: Other: soft nontender nondistended with normoactive bowel sounds Neuro: Other: cranial nerves 2-12 grossly intact as tested. Moves all extremities with equal power Extrem: Other: no edema bilateral Objective Data Active Medications Acetaminophen (Acetaminophen 325 Mg Tablet) 650 mg PO Q6H PRN PRN Reason: Pain, Mild (Pain Scale 1-3) Albuterol Sulfate (Albuterol Sulfate 90 Mcg 8 Gm Inhaler) 2 puff INHALE Q4H PRN PRN Reason: Shortness Of Breath Last Admin: 03/10/21 09:07 Dose: 2 puff Documented by: JAE Amlodipine Besylate (Amlodipine Besylate 10 Mg Tablet) 10 mg PO DAILY [facility]; Protocol Last Admin: 03/10/21 09:03 Dose: 10 mg Documented by: JAE Aspirin (Aspirin Enteric Coated 81 Mg Tablet.Dr) 81 mg PO DAILY [facility] Last Admin: 03/10/21 09:04 Dose: 81 mg Documented by: JAE Atorvastatin Calcium (Atorvastatin Calcium 40 Mg Tablet) 40 mg PO BEDTIME [facility] Last Admin: 03/09/21 21:06 Dose: 40 mg Documented by: ANNIE Carvedilol (Carvedilol 12.5 Mg Tablet) 25 mg PO BID [facility]; Protocol Last Admin: 03/10/21 09:05 Dose: 25 mg Documented by: JAE Docusate Sodium (Docusate Sodium 100 Mg Capsule) 100 mg PO DAILY PRN PRN Reason: Constipation Last Admin: 03/05/21 08:33 Dose: 100 mg Documented by: BI Enoxaparin Sodium (Enoxaparin Sodium 40 Mg/0.4 Ml Syringe) 40 mg SUBCUT Q24H [facility] Last Admin: 03/09/21 21:06 Dose: 40 mg Documented by: ANNIE Fluoxetine HCl (Fluoxetine Hcl 20 Mg Capsule) 40 mg PO DAILY [facility] Last Admin: 03/10/21 09:04 Dose: 40 mg Documented by: JAE Folic Acid (Folic Acid 1 Mg Tablet) 1 mg PO DAILY [facility] Last Admin: 03/10/21 09:04 Dose: 1 mg Documented by: JAE Ferric Sodium Gluconate Complex 125 mg/ Sodium Chloride 110 mls @ 100 mls/hr IV DAILY [facility] Stop: 03/11/21 10:05 Last Infusion: 03/10/21 11:28 Dose: 0 mls/hr Documented by: JAE Labetalol HCl (Labetalol Hcl 100 Mg/20 Ml Vial) 20 mg IVPUSH Q20M PRN PRN Reason: SBP > 160 Last Admin: 03/04/21 06:39 Dose: 20 mg Documented by: ORLANDO Melatonin (Melatonin 3 Mg Tablet) 6 mg PO BEDTIME PRN PRN Reason: Insomnia Last Admin: 03/08/21 22:52 Dose: 6 mg Documented by: ANNIE Multivitamins/Vitamin C (Multivitamin Tablet) 1 tab PO DAILY [facility] Last Admin: 03/10/21 09:06 Dose: 1 tab Documented by: JAE Ondansetron HCl (Ondansetron Hcl 4 Mg/2 Ml Vial) 4 mg IVPUSH Q8H PRN PRN Reason: Nausea and Vomiting Oxcarbazepine (Oxcarbazepine 150 Mg Tablet) 150 mg PO TID [facility] Last Admin: 03/10/21 09:04 Dose: 150 mg Documented by: JAE Pharmacy Consult (Consult Rx Perform Med Rec) 1 each MISCELLANE ONCE PRN PRN Reason: Consult order Sodium Chloride (0.9 % Sodium Chloride Flush 3 Ml Syringe) 3 ml IVFLUSH QSHIFT [facility] Last Admin: 03/10/21 09:06 Dose: 3 ml Documented by: JAE Spironolactone (Spironolactone 25 Mg Tablet) 50 mg PO DAILY [facility]; Protocol Last Admin: 03/10/21 09:03 Dose: 50 mg Documented by: JAE Thiamine HCl (Thiamine Hcl 100 Mg Tablet) 100 mg PO DAILY [facility] Last Admin: 03/10/21 09:04 Dose: 100 mg Documented by: JAE Labs CBC & Chem 7: 03/08/21 06:59 03/08/21 08:29 Assessment and Plan (1) Pneumonia: Status: Acute (2) Hyponatremia: Status: Acute (3) MAI (acute kidney injury): Status: Acute Assessment and Plan: This is a 60-year-old male with past medical history of alcohol abuse with previous admissions for hypernatremia presents to the hospital found to have hypokalemia and hyponatremia. 1.Hypernatremia Stable x multiple draws. Needs placement...consider review of [facility] meds when SNF. 2.Hypertension Acceptable control on current therapies 3.. EToH abuse Phenobarb protocol..Continue Thiamine/Folate No signs W/D thus far DVT prophylaxis: Lovenox Quality Stroke Does the patient have a stroke diagnosis?: No VTE Prior VTE?: No VTE Risk Level:: Medical - moderate - high VTE Device Contraindication: Treatment Not Indicated VTE Drug Contraindication: N/A - Med Ordered
[2021-03-10] MEDS: Enoxaparin Sodium 40 MG/0.4 ML SYRINGE SUBCUT (21:09)
[2021-03-10] MEDS: Atorvastatin Calcium 40 MG TABLET PO (21:09)
[2021-03-11] VITALS (9 sets, daily range): BP systolic 170–198; BP diastolic 90–106; PULSE 70–80; RESP 15–20; TEMP 36.5–37.2; O2SAT 90–97
[2021-03-11] MEDS: 0.9 % Sodium Chloride Flush 3 ML SYRINGE IVFLUSH ×4 (01:21→19:48)
[2021-03-11] MEDS: Melatonin 3 MG TABLET 6 MG PO ×2 (02:29→19:47)
[2021-03-11] MEDS: FLUoxetine HCl 20 MG CAPSULE 40 MG PO (08:23)
[2021-03-11] MEDS: carvediloL 12.5 MG TABLET 25 MG PO ×2 (08:23→19:48)
[2021-03-11] MEDS: Spironolactone 25 MG TABLET 50 MG PO (08:24)
[2021-03-11] MEDS: Folic Acid 1 MG TABLET PO (08:24)
[2021-03-11] MEDS: Multivitamin TABLET 1 TAB PO (08:24)
[2021-03-11] MEDS: amLODIPine Besylate 10 MG TABLET PO (08:24)
[2021-03-11] MEDS: Thiamine HCL 100 MG TABLET PO (08:24)
[2021-03-11] MEDS: Aspirin Enteric Coated 81 MG TABLET.DR PO (08:24)
[2021-03-11] MEDS: OXcarbazepine 150 MG TABLET PO ×3 (08:24→19:48)
[2021-03-11] MEDS: Sodium Ferric Gluconat/Sucrose 125 MG in 0.9 % Sodium Chloride 100 ML 100 MG IV (09:16)
--- NOTE | 2021-03-11 12:59 | HO.PM.IMPN ---
Subjective Subjective Date of Service: 03/11/21 Interval History: No acute issues overnight; breathing at baseline. Using albuterol inhaler p.r.n. Review of Systems Denies chest pain Denies acute shortness of breath Denies nausea vomiting diarrhea Physical Exam Vital Signs: Vital Signs: Last Vital Signs Temp 97.7 F 03/11/21 11:03 Pulse 75 03/11/21 11:03 Resp 18 03/11/21 11:03 BP 170/90 H 03/11/21 11:03 Pulse Ox 97 03/11/21 11:03 BMI result Body Mass Index 20.2 Const: Other: vague but no acute distress Resp: Other: clear to auscultation bilaterally with scant crackles at bases Cardio: Other: no S4; positive S1-S2; no S3 murmurs rubs or gallop GI: Other: soft nontender nondistended with normoactive bowel sounds Neuro: Other: cranial nerves 2-12 grossly intact as tested. Moves all extremities with equal power Extrem: Other: no edema bilateral Objective Data Active Medications Acetaminophen (Acetaminophen 325 Mg Tablet) 650 mg PO Q6H PRN PRN Reason: Pain, Mild (Pain Scale 1-3) Albuterol Sulfate (Albuterol Sulfate 90 Mcg 8 Gm Inhaler) 2 puff INHALE Q4H PRN PRN Reason: Shortness Of Breath Last Admin: 03/10/21 09:07 Dose: 2 puff Documented by: JAE Amlodipine Besylate (Amlodipine Besylate 10 Mg Tablet) 10 mg PO DAILY [facility]; Protocol Last Admin: 03/11/21 08:24 Dose: 10 mg Documented by: ANDREWS Aspirin (Aspirin Enteric Coated 81 Mg Tablet.Dr) 81 mg PO DAILY [facility] Last Admin: 03/11/21 08:24 Dose: 81 mg Documented by: ANDREWS Atorvastatin Calcium (Atorvastatin Calcium 40 Mg Tablet) 40 mg PO BEDTIME [facility] Last Admin: 03/10/21 21:09 Dose: 40 mg Documented by: FITO Carvedilol (Carvedilol 12.5 Mg Tablet) 25 mg PO BID [facility]; Protocol Last Admin: 03/11/21 08:23 Dose: 25 mg Documented by: ANDREWS Docusate Sodium (Docusate Sodium 100 Mg Capsule) 100 mg PO DAILY PRN PRN Reason: Constipation Last Admin: 03/05/21 08:33 Dose: 100 mg Documented by: BI Enoxaparin Sodium (Enoxaparin Sodium 40 Mg/0.4 Ml Syringe) 40 mg SUBCUT Q24H [facility] Last Admin: 03/10/21 21:09 Dose: 40 mg Documented by: FITO Fluoxetine HCl (Fluoxetine Hcl 20 Mg Capsule) 40 mg PO DAILY [facility] Last Admin: 03/11/21 08:23 Dose: 40 mg Documented by: ANDREWS Folic Acid (Folic Acid 1 Mg Tablet) 1 mg PO DAILY [facility] Last Admin: 03/11/21 08:24 Dose: 1 mg Documented by: ANDREWS Labetalol HCl (Labetalol Hcl 100 Mg/20 Ml Vial) 20 mg IVPUSH Q20M PRN PRN Reason: SBP > 160 Last Admin: 03/04/21 06:39 Dose: 20 mg Documented by: ORLANDO Melatonin (Melatonin 3 Mg Tablet) 6 mg PO BEDTIME PRN PRN Reason: Insomnia Last Admin: 03/11/21 02:29 Dose: 6 mg Documented by: FITO Multivitamins/Vitamin C (Multivitamin Tablet) 1 tab PO DAILY [facility] Last Admin: 03/11/21 08:24 Dose: 1 tab Documented by: ANDREWS Ondansetron HCl (Ondansetron Hcl 4 Mg/2 Ml Vial) 4 mg IVPUSH Q8H PRN PRN Reason: Nausea and Vomiting Oxcarbazepine (Oxcarbazepine 150 Mg Tablet) 150 mg PO TID [facility] Last Admin: 03/11/21 08:24 Dose: 150 mg Documented by: ANDREWS Pharmacy Consult (Consult Rx Perform Med Rec) 1 each MISCELLANE ONCE PRN PRN Reason: Consult order Sodium Chloride (0.9 % Sodium Chloride Flush 3 Ml Syringe) 3 ml IVFLUSH QSHIFT [facility] Last Admin: 03/11/21 08:25 Dose: 3 ml Documented by: ANDREWS Spironolactone (Spironolactone 25 Mg Tablet) 50 mg PO DAILY [facility]; Protocol Last Admin: 03/11/21 08:24 Dose: 50 mg Documented by: ANDREWS Thiamine HCl (Thiamine Hcl 100 Mg Tablet) 100 mg PO DAILY [facility] Last Admin: 03/11/21 08:24 Dose: 100 mg Documented by: ANDREWS Labs CBC & Chem 7: 03/08/21 06:59 03/08/21 08:29 Assessment and Plan (1) Pneumonia: Status: Acute (2) HENNY (renal artery stenosis): Status: Acute (3) MAI (acute kidney injury): Status: Acute Assessment and Plan: This is a 60-year-old male with past medical history of alcohol abuse with previous admissions for hypernatremia presents to the hospital found to have hypokalemia and hyponatremia. 1.Hypernatremia Stable x multiple draws. Needs placement...consider review of [facility] meds when SNF. 2.Hypertension Acceptable control on current therapies 3.. EToH abuse Phenobarb protocol completed. No signs W/D thus far DVT prophylaxis: Lovenox Quality Stroke Does the patient have a stroke diagnosis?: No VTE Prior VTE?: No VTE Risk Level:: Medical - moderate - high VTE Device Contraindication: Treatment Not Indicated VTE Drug Contraindication: N/A - Med Ordered
--- NOTE | 2021-03-11 15:57 | MHC.CLN ---
F/U INTAKE VARIABLE, WITH MANY MEALS 100%. SKIN CONTINUES WITH STAGE I BILATERAL BUTTOCKS. DIET=REGULAR. NO NEW NUTRITION INTERVENTIONS AT THIS TIME.
[2021-03-11] MEDS: Atorvastatin Calcium 40 MG TABLET PO (19:47)
[2021-03-11] MEDS: Enoxaparin Sodium 40 MG/0.4 ML SYRINGE SUBCUT (23:24)
[2021-03-12] VITALS (9 sets, daily range): BP systolic 128–189; BP diastolic 64–101; PULSE 72–83; RESP 16–20; TEMP 36.3–37; O2SAT 92–96
[2021-03-12 06:27] LABS: MANUAL DIFF FLAG NO
[2021-03-12 06:53] LABS: Basophils Absolute Auto 0.1 X10*3/uL (0.0-0.2); Basophils Percent Auto 1.3 % (0-2); Eosinophils Absolute Auto 0.4 X10*3/uL (0.0-0.4); Hematocrit 28.3 % (42.0-52.0); Hemoglobin 9.5 g/dl (14.0-18.0); Imm Gran Abs Auto 0.03 X10*3/uL (0.00-0.03); Imm Gran Pct Auto 0.4 % (0.0-0.4); Lymphocytes Absolute Auto 1.2 X10*3/uL (1.2-4.9); Lymphocytes Percent Auto 16.6 % (20-40); Mean Corpuscular HGB Conc 33.6 g/dl (31.0-36.0); Mean Corpuscular Hemoglobin 30.6 pg (27.0-33.0); Mean Corpuscular Volume 91.3 fL (80.0-98.0); Mean Platelet Volume 8.9 fL (9.4-12.4); Monocytes Absolute Auto 0.8 X10*3/uL (0.1-1.2); Neutrophils Absolute Auto 4.7 x10*3/uL (2.0-8.3); Neutrophils Percent Auto 65.7 % (45-73); Platelet Count 345 X10*3/uL (160-400); Red Cell Distribution Width 14.4 % (11.0-16.0); White Blood Count 7.2 X10*3/uL (4.8-10.8)
[2021-03-12 06:57] LABS: Alanine Aminotransferase 18 U/L (0-40); Albumin Level 3.1 g/dL (3.5-5.0); Alkaline Phosphatase 110 U/L (39-117); Anion Gap 11 (12-20); Aspartate Amino Transferase 25 U/L (5-37); Bilirubin Total 0.2 mg/dL (0.0-1.0); Blood Urea Nitrogen 12 mg/dL (9-16); Calcium 8.9 mg/dL (8.4-10.2); Carbon Dioxide 29 mmol/L (22-29); Chloride 98 mmol/L (96-108); Creatinine Clr Calc Pharmacy 61.9; Estimated Glomerular Filt Rate > 60; Glucose Fasting 94 mg/dL (60-99); Potassium 3.4 mmol/L (3.3-5.1); Sodium 135 mmol/L (135-145); Total Protein 6.2 g/dL (6.5-8.0)
[2021-03-12] MEDS: carvediloL 12.5 MG TABLET 25 MG PO ×2 (08:32→21:24)
[2021-03-12] MEDS: 0.9 % Sodium Chloride Flush 3 ML SYRINGE IVFLUSH ×3 (08:32→21:26)
[2021-03-12] MEDS: OXcarbazepine 150 MG TABLET PO ×3 (08:33→21:24)
[2021-03-12] MEDS: Multivitamin TABLET 1 TAB PO (08:33)
[2021-03-12] MEDS: Spironolactone 25 MG TABLET 50 MG PO (08:33)
[2021-03-12] MEDS: Folic Acid 1 MG TABLET PO (08:34)
[2021-03-12] MEDS: Aspirin Enteric Coated 81 MG TABLET.DR PO (08:34)
[2021-03-12] MEDS: Thiamine HCL 100 MG TABLET PO (08:34)
[2021-03-12] MEDS: FLUoxetine HCl 20 MG CAPSULE 40 MG PO (08:35)
[2021-03-12] MEDS: amLODIPine Besylate 10 MG TABLET PO (08:35)
--- NOTE | 2021-03-12 14:53 | HO.PM.IMPN ---
Subjective Subjective Date of Service: 03/12/21 Interval History: Doing well overall; no sign of alcohol withdrawal Review of Systems Denies chest pain Denies shortness of breath Denies nausea vomiting diarrhea Physical Exam Vital Signs: Vital Signs: Last Vital Signs Temp 98.4 F 03/12/21 11:25 Pulse 73 03/12/21 11:25 Resp 20 03/12/21 11:25 BP 170/98 H 03/12/21 11:25 Pulse Ox 93 03/12/21 11:25 BMI result Body Mass Index 20.2 Const: Other: vague but no acute distress Resp: Other: clear to auscultation bilaterally with scant crackles at bases Cardio: Other: no S4; positive S1-S2; no S3 murmurs rubs or gallop GI: Other: soft nontender nondistended with normoactive bowel sounds Neuro: Other: cranial nerves 2-12 grossly intact as tested. Moves all extremities with equal power Extrem: Other: no edema bilateral Objective Data Active Medications Acetaminophen (Acetaminophen 325 Mg Tablet) 650 mg PO Q6H PRN PRN Reason: Pain, Mild (Pain Scale 1-3) Albuterol Sulfate (Albuterol Sulfate 90 Mcg 8 Gm Inhaler) 2 puff INHALE Q4H PRN PRN Reason: Shortness Of Breath Last Admin: 03/10/21 09:07 Dose: 2 puff Documented by: JAE Amlodipine Besylate (Amlodipine Besylate 10 Mg Tablet) 10 mg PO DAILY [facility]; Protocol Last Admin: 03/12/21 08:35 Dose: 10 mg Documented by: COURTNEY Aspirin (Aspirin Enteric Coated 81 Mg Tablet.) 81 mg PO DAILY [facility] Last Admin: 03/12/21 08:34 Dose: 81 mg Documented by: COURTNEY Atorvastatin Calcium (Atorvastatin Calcium 40 Mg Tablet) 40 mg PO BEDTIME [facility] Last Admin: 03/11/21 19:47 Dose: 40 mg Documented by: ZEINAB Carvedilol (Carvedilol 12.5 Mg Tablet) 25 mg PO BID [facility]; Protocol Last Admin: 03/12/21 08:32 Dose: 25 mg Documented by: COURTNEY Docusate Sodium (Docusate Sodium 100 Mg Capsule) 100 mg PO DAILY PRN PRN Reason: Constipation Last Admin: 03/05/21 08:33 Dose: 100 mg Documented by: BI Enoxaparin Sodium (Enoxaparin Sodium 40 Mg/0.4 Ml Syringe) 40 mg SUBCUT Q24H [facility] Last Admin: 03/11/21 23:24 Dose: 40 mg Documented by: ZEINAB Fluoxetine HCl (Fluoxetine Hcl 20 Mg Capsule) 40 mg PO DAILY [facility] Last Admin: 03/12/21 08:35 Dose: 40 mg Documented by: COURTNEY Folic Acid (Folic Acid 1 Mg Tablet) 1 mg PO DAILY [facility] Last Admin: 03/12/21 08:34 Dose: 1 mg Documented by: COURTNEY Labetalol HCl (Labetalol Hcl 100 Mg/20 Ml Vial) 20 mg IVPUSH Q20M PRN PRN Reason: SBP > 160 Last Admin: 03/04/21 06:39 Dose: 20 mg Documented by: ORLANDO Melatonin (Melatonin 3 Mg Tablet) 6 mg PO BEDTIME PRN PRN Reason: Insomnia Last Admin: 03/11/21 19:47 Dose: 6 mg Documented by: ZEINAB Multivitamins/Vitamin C (Multivitamin Tablet) 1 tab PO DAILY [facility] Last Admin: 03/12/21 08:33 Dose: 1 tab Documented by: COURTNEY Ondansetron HCl (Ondansetron Hcl 4 Mg/2 Ml Vial) 4 mg IVPUSH Q8H PRN PRN Reason: Nausea and Vomiting Oxcarbazepine (Oxcarbazepine 150 Mg Tablet) 150 mg PO TID [facility] Last Admin: 03/12/21 08:33 Dose: 150 mg Documented by: COURTNEY Pharmacy Consult (Consult Rx Perform Med Rec) 1 each MISCELLANE ONCE PRN PRN Reason: Consult order Sodium Chloride (0.9 % Sodium Chloride Flush 3 Ml Syringe) 3 ml IVFLUSH QSHIFT [facility] Last Admin: 03/12/21 08:32 Dose: 3 ml Documented by: COURTNEY Spironolactone (Spironolactone 25 Mg Tablet) 50 mg PO DAILY [facility]; Protocol Last Admin: 03/12/21 08:33 Dose: 50 mg Documented by: COURTNEY Thiamine HCl (Thiamine Hcl 100 Mg Tablet) 100 mg PO DAILY [facility] Last Admin: 03/12/21 08:34 Dose: 100 mg Documented by: COURTNEY Labs CBC & Chem 7: 03/12/21 06:08 03/12/21 06:08 Labs: Laboratory Results - last 24 hr 03/12/21 03/12/21 06:08 06:08 MCV 91.3 MCH 30.6 MCHC 33.6 RDW 14.4 Plt Count 345 D MPV 8.9 L Immature Gran % (Auto) 0.4 Neut % (Auto) 65.7 Lymph % (Auto) 16.6 L [place] % (Auto) 11.0 Eos % (Auto) 5.0 H Baso % (Auto) 1.3 Lymph # (Auto) 1.2 [place] # (Auto) 0.8 Eos # (Auto) 0.4 Baso # (Auto) 0.1 Abs Immat Gran (auto) 0.03 Absolute Neuts (auto) 4.7 Absolute Nucleated RBC 0.000 Nucleated RBC % (auto) 0.0 Anion Gap 11 L Estim Creat Clear Calc 61.9 Estimated GFR > 60 Fasting Glucose 94 Calcium 8.9 Total Bilirubin 0.2 AST 25 ALT 18 Alkaline Phosphatase 110 Total Protein 6.2 L Albumin 3.1 L Assessment and Plan (1) Pneumonia: Status: Acute (2) MAI (acute kidney injury): Status: Acute (3) Atherosclerotic cardiovascular disease: Status: Acute Assessment and Plan: This is a 60-year-old male with past medical history of alcohol abuse with previous admissions for hypernatremia presents to the hospital found to have hypokalemia and hyponatremia. Awaiting placement 1.Hypernatremia Stable x multiple draws. Needs placement...consider review of [facility] meds when SNF. 2.Hypertension Acceptable control on current therapies 3.. EToH abuse Phenobarb protocol completed. No signs W/D thus far DVT prophylaxis: Lovenox Quality Stroke Does the patient have a stroke diagnosis?: No VTE Prior VTE?: No VTE Risk Level:: Medical - moderate - high VTE Device Contraindication: Treatment Not Indicated VTE Drug Contraindication: N/A - Med Ordered
[2021-03-12] MEDS: Atorvastatin Calcium 40 MG TABLET PO (21:24)
[2021-03-12] MEDS: Enoxaparin Sodium 40 MG/0.4 ML SYRINGE SUBCUT (21:24)
[2021-03-12] MEDS: Melatonin 3 MG TABLET 6 MG PO (21:24)
[2021-03-13] VITALS (9 sets, daily range): BP systolic 117–190; BP diastolic 58–98; PULSE 66–77; RESP 18–20; TEMP 36.6–37; O2SAT 94–96
[2021-03-13 07:35] LABS: MANUAL DIFF FLAG NO
[2021-03-13 07:41] LABS: Basophils Absolute Auto 0.1 X10*3/uL (0.0-0.2); Basophils Percent Auto 1.1 % (0-2); Eosinophils Absolute Auto 0.4 X10*3/uL (0.0-0.4); Eosinophils Percent Auto 4.7 % (0-4); Hematocrit 27.7 % (42.0-52.0); Hemoglobin 9.4 g/dl (14.0-18.0); Imm Gran Abs Auto 0.03 X10*3/uL (0.00-0.03); Imm Gran Pct Auto 0.4 % (0.0-0.4); Lymphocytes Absolute Auto 1.4 X10*3/uL (1.2-4.9); Lymphocytes Percent Auto 18.5 % (20-40); Mean Corpuscular HGB Conc 33.9 g/dl (31.0-36.0); Mean Corpuscular Hemoglobin 30.8 pg (27.0-33.0); Mean Corpuscular Volume 90.8 fL (80.0-98.0); Mean Platelet Volume 8.5 fL (9.4-12.4); Monocytes Absolute Auto 0.9 X10*3/uL (0.1-1.2); Monocytes Percent Auto 12.6 % (2-11); Neutrophils Absolute Auto 4.7 x10*3/uL (2.0-8.3); Neutrophils Percent Auto 62.7 % (45-73); Platelet Count 328 X10*3/uL (160-400); Red Blood Count 3.05 X10*6/uL (4.60-5.80); Red Cell Distribution Width 14.4 % (11.0-16.0); White Blood Count 7.4 X10*3/uL (4.8-10.8)
[2021-03-13 08:02] LABS: Alanine Aminotransferase 15 U/L (0-40); Alkaline Phosphatase 104 U/L (39-117); Anion Gap 11 (12-20); Aspartate Amino Transferase 21 U/L (5-37); Bilirubin Total 0.3 mg/dL (0.0-1.0); Blood Urea Nitrogen 11 mg/dL (9-16); Calcium 8.4 mg/dL (8.4-10.2); Carbon Dioxide 29 mmol/L (22-29); Chloride 98 mmol/L (96-108); Creatinine Clr Calc Pharmacy 57.6; Estimated Glomerular Filt Rate > 60; Glucose Fasting 93 mg/dL (60-99); Potassium 3.1 mmol/L (3.3-5.1); Sodium 135 mmol/L (135-145); Total Protein 5.8 g/dL (6.5-8.0)
[2021-03-13] MEDS: Multivitamin TABLET 1 TAB PO (10:58)
[2021-03-13] MEDS: Aspirin Enteric Coated 81 MG TABLET.DR PO (10:58)
[2021-03-13] MEDS: Spironolactone 25 MG TABLET 50 MG PO (10:59)
[2021-03-13] MEDS: OXcarbazepine 150 MG TABLET PO ×3 (10:59→21:51)
[2021-03-13] MEDS: carvediloL 12.5 MG TABLET 25 MG PO ×2 (11:00→21:50)
[2021-03-13] MEDS: FLUoxetine HCl 20 MG CAPSULE 40 MG PO (11:01)
[2021-03-13] MEDS: amLODIPine Besylate 10 MG TABLET PO (11:01)
[2021-03-13] MEDS: lisinopriL 5 MG TABLET PO (11:01)
[2021-03-13] MEDS: Thiamine HCL 100 MG TABLET PO (11:02)
[2021-03-13] MEDS: Folic Acid 1 MG TABLET PO (11:04)
[2021-03-13] MEDS: 0.9 % Sodium Chloride Flush 3 ML SYRINGE IVFLUSH ×3 (11:05→21:54)
[2021-03-13 13:51] LABS: Aldosterone/Renin Ratio 2.1 Ratio (0.9-28.9); Plasma Renin Activity 45.41 ng/mL/h (0.25-5.82)
--- NOTE | 2021-03-13 15:43 | HO.PM.IMPN ---
Subjective Subjective Date of Service: 03/13/21 Interval History: BP elevated No chest pain No headache Still has Neves Review of Systems Review of Systems: Yes all other systems are reviewed and are negative Physical Exam Vital Signs: Vital Signs: Last Vital Signs Temp 98.5 F 03/13/21 11:31 Pulse 77 03/13/21 11:31 Resp 20 03/13/21 11:31 BP 170/58 H 03/13/21 11:31 Pulse Ox 96 03/13/21 11:31 BMI result Body Mass Index 20.2 Gen: in no acute distress HEENT: sclera anicteric, moist mucus membranes Neck: supple Lungs: clear to auscultation bilaterally Heart: regular rate and rhythm, no murmurs Abd: soft, non-tender, non-distended Ext: no edema Skin: warm/well-perfused Neuro: alert and oriented x3, no focal findings Psych: appropriate affect Objective Data Active Medications Acetaminophen (Acetaminophen 325 Mg Tablet) 650 mg PO Q6H PRN PRN Reason: Pain, Mild (Pain Scale 1-3) Albuterol Sulfate (Albuterol Sulfate 90 Mcg 8 Gm Inhaler) 2 puff INHALE Q4H PRN PRN Reason: Shortness Of Breath Last Admin: 03/10/21 09:07 Dose: 2 puff Documented by: JAE Amlodipine Besylate (Amlodipine Besylate 10 Mg Tablet) 10 mg PO DAILY [facility]; Protocol Last Admin: 03/13/21 11:01 Dose: 10 mg Documented by: NOELLE Aspirin (Aspirin Enteric Coated 81 Mg Tablet.Dr) 81 mg PO DAILY [facility] Last Admin: 03/13/21 10:58 Dose: 81 mg Documented by: NOELLE Atorvastatin Calcium (Atorvastatin Calcium 40 Mg Tablet) 40 mg PO BEDTIME [facility] Last Admin: 03/12/21 21:24 Dose: 40 mg Documented by: ZEINAB Carvedilol (Carvedilol 12.5 Mg Tablet) 25 mg PO BID [facility]; Protocol Last Admin: 03/13/21 11:00 Dose: 25 mg Documented by: NOELLE Docusate Sodium (Docusate Sodium 100 Mg Capsule) 100 mg PO DAILY PRN PRN Reason: Constipation Last Admin: 03/05/21 08:33 Dose: 100 mg Documented by: BI Enoxaparin Sodium (Enoxaparin Sodium 40 Mg/0.4 Ml Syringe) 40 mg SUBCUT Q24H [facility] Last Admin: 03/12/21 21:24 Dose: 40 mg Documented by: ZEINAB Fluoxetine HCl (Fluoxetine Hcl 20 Mg Capsule) 40 mg PO DAILY [facility] Last Admin: 03/13/21 11:01 Dose: 40 mg Documented by: NOELLE Folic Acid (Folic Acid 1 Mg Tablet) 1 mg PO DAILY [facility] Last Admin: 03/13/21 11:04 Dose: 1 mg Documented by: NOELLE Labetalol HCl (Labetalol Hcl 100 Mg/20 Ml Vial) 20 mg IVPUSH Q20M PRN PRN Reason: SBP > 160 Last Admin: 03/04/21 06:39 Dose: 20 mg Documented by: ORLANDO Lisinopril (Lisinopril 5 Mg Tablet) 5 mg PO DAILY [facility]; Protocol Last Admin: 03/13/21 11:01 Dose: 5 mg Documented by: NOELLE Melatonin (Melatonin 3 Mg Tablet) 6 mg PO BEDTIME PRN PRN Reason: Insomnia Last Admin: 03/12/21 21:24 Dose: 6 mg Documented by: ZEINAB Multivitamins/Vitamin C (Multivitamin Tablet) 1 tab PO DAILY [facility] Last Admin: 03/13/21 10:58 Dose: 1 tab Documented by: NOELLE Ondansetron HCl (Ondansetron Hcl 4 Mg/2 Ml Vial) 4 mg IVPUSH Q8H PRN PRN Reason: Nausea and Vomiting Oxcarbazepine (Oxcarbazepine 150 Mg Tablet) 150 mg PO TID [facility] Last Admin: 03/13/21 15:35 Dose: 150 mg Documented by: NOELLE Pharmacy Consult (Consult Rx Perform Med Rec) 1 each MISCELLANE ONCE PRN PRN Reason: Consult order Sodium Chloride (0.9 % Sodium Chloride Flush 3 Ml Syringe) 3 ml IVFLUSH QSHIFT [facility] Last Admin: 03/13/21 11:05 Dose: 3 ml Documented by: NOELLE Spironolactone (Spironolactone 25 Mg Tablet) 50 mg PO DAILY [facility]; Protocol Last Admin: 03/13/21 10:59 Dose: 50 mg Documented by: NOELLE Thiamine HCl (Thiamine Hcl 100 Mg Tablet) 100 mg PO DAILY [facility] Last Admin: 03/13/21 11:02 Dose: 100 mg Documented by: NOELLE Labs CBC & Chem 7: 03/13/21 07:15 03/13/21 07:15 Labs: Laboratory Results - last 24 hr 03/02/21 03/13/21 03/13/21 12:20 07:15 07:15 MCV 90.8 MCH 30.8 MCHC 33.9 RDW 14.4 Plt Count 328 MPV 8.5 L Immature Gran % (Auto) 0.4 Neut % (Auto) 62.7 Lymph % (Auto) 18.5 L [place] % (Auto) 12.6 H Eos % (Auto) 4.7 H Baso % (Auto) 1.1 Lymph # (Auto) 1.4 [place] # (Auto) 0.9 Eos # (Auto) 0.4 Baso # (Auto) 0.1 Abs Immat Gran (auto) 0.03 Absolute Neuts (auto) 4.7 Absolute Nucleated RBC 0.000 Nucleated RBC % (auto) 0.0 Anion Gap 11 L Estim Creat Clear Calc 57.6 Estimated GFR > 60 Fasting Glucose 93 Calcium 8.4 Total Bilirubin 0.3 AST 21 ALT 15 Alkaline Phosphatase 104 Total Protein 5.8 L Albumin 3.0 L Renin Activity 45.41 H Aldosterone 95 Aldosterone/Renin Ratio 2.1 Assessment and Plan (1) Pneumonia: Status: Acute (2) MAI (acute kidney injury): Status: Acute (3) Atherosclerotic cardiovascular disease: Status: Acute Assessment and Plan: hospital d#12 60yo M with hx EtOH abuse admitted for hypoNa, hypoK, and EtOH withdrawal # hyponatremia - resolved with fluid restriction, consider change in psych meds as outpt [on fluoxetine + oxcarbazepine and the latter is particularly notorious for hypoNa] # hypoK - replete PO, recheck in AM # HTN - continue amlodipine + carvedilol + spironolactone, added lisionpril 5 mg/d, monitor BMP # EtOH withdrawal - phenobarbital taper completed, continue B vitamins # VTE ppx - LMWH # dispo - awaiting STR, complicated by Covid-19 unvaccinated status Quality Stroke Does the patient have a stroke diagnosis?: No VTE Prior VTE?: No VTE Risk Level:: Medical - moderate - high VTE Device Contraindication: Treatment Not Indicated VTE Drug Contraindication: N/A - Med Ordered
[2021-03-13] MEDS: Potassium Chloride ER 20 MEQ TAB.ER.PRT 40 MEQ PO (17:48)
--- NOTE | 2021-03-13 18:17 | MHC.CLN ---
F/U DIET=REGULAR. VARIABLE INTAKE WITH MOST MEALS 100%. STAGE I TO BILATERAL BUTTOCKS. NO NEW NUTRITION INTERVENTIONS. CONTINUE TO FOLLOW.
[2021-03-13] MEDS: Atorvastatin Calcium 40 MG TABLET PO (21:51)
[2021-03-13] MEDS: Enoxaparin Sodium 40 MG/0.4 ML SYRINGE SUBCUT (21:51)
[2021-03-13] MEDS: Melatonin 3 MG TABLET 6 MG PO (21:51)
[2021-03-14] VITALS (9 sets, daily range): BP systolic 92–125; BP diastolic 56–69; PULSE 62–83; RESP 18–20; TEMP 36–37.1; O2SAT 92–97
[2021-03-14 07:09] LABS: MANUAL DIFF FLAG NO
[2021-03-14 07:18] LABS: Basophils Absolute Auto 0.1 X10*3/uL (0.0-0.2); Eosinophils Absolute Auto 0.3 X10*3/uL (0.0-0.4); Eosinophils Percent Auto 3.6 % (0-4); Hematocrit 26.7 % (42.0-52.0); Hemoglobin 8.9 g/dl (14.0-18.0); Imm Gran Abs Auto 0.03 X10*3/uL (0.00-0.03); Imm Gran Pct Auto 0.3 % (0.0-0.4); Lymphocytes Absolute Auto 1.5 X10*3/uL (1.2-4.9); Lymphocytes Percent Auto 16.7 % (20-40); Mean Corpuscular HGB Conc 33.3 g/dl (31.0-36.0); Mean Corpuscular Hemoglobin 30.9 pg (27.0-33.0); Mean Corpuscular Volume 92.7 fL (80.0-98.0); Mean Platelet Volume 8.7 fL (9.4-12.4); Monocytes Percent Auto 10.8 % (2-11); Neutrophils Absolute Auto 6.2 x10*3/uL (2.0-8.3); Neutrophils Percent Auto 67.6 % (45-73); Platelet Count 311 X10*3/uL (160-400); Red Blood Count 2.88 X10*6/uL (4.60-5.80); Red Cell Distribution Width 14.6 % (11.0-16.0); White Blood Count 9.2 X10*3/uL (4.8-10.8)
[2021-03-14 07:50] LABS: Alanine Aminotransferase 16 U/L (0-40); Albumin Level 2.7 g/dL (3.5-5.0); Alkaline Phosphatase 91 U/L (39-117); Anion Gap 11 (12-20); Aspartate Amino Transferase 21 U/L (5-37); Bilirubin Total 0.2 mg/dL (0.0-1.0); Blood Urea Nitrogen 18 mg/dL (9-16); Calcium 8.2 mg/dL (8.4-10.2); Carbon Dioxide 28 mmol/L (22-29); Chloride 99 mmol/L (96-108); Creatinine Clr Calc Pharmacy 45.7; Estimated Glomerular Filt Rate 50; Glucose Fasting 110 mg/dL (60-99); Potassium 3.4 mmol/L (3.3-5.1); Sodium 135 mmol/L (135-145); Total Protein 5.4 g/dL (6.5-8.0)
[2021-03-14] MEDS: Multivitamin TABLET 1 TAB PO (09:26)
[2021-03-14] MEDS: Spironolactone 25 MG TABLET 50 MG PO (09:27)
[2021-03-14] MEDS: carvediloL 12.5 MG TABLET 25 MG PO ×2 (09:27→21:19)
[2021-03-14] MEDS: amLODIPine Besylate 10 MG TABLET PO (09:28)
[2021-03-14] MEDS: FLUoxetine HCl 20 MG CAPSULE 40 MG PO (09:28)
[2021-03-14] MEDS: Aspirin Enteric Coated 81 MG TABLET.DR PO (09:29)
[2021-03-14] MEDS: Thiamine HCL 100 MG TABLET PO (09:29)
[2021-03-14] MEDS: OXcarbazepine 150 MG TABLET PO ×3 (09:29→21:19)
[2021-03-14] MEDS: Folic Acid 1 MG TABLET PO (09:29)
[2021-03-14] MEDS: 0.9 % Sodium Chloride Flush 3 ML SYRINGE IVFLUSH ×3 (09:31→21:20)
--- NOTE | 2021-03-14 10:15 | HO.PM.IMPN ---
Subjective Subjective Date of Service: 03/14/21 Interval History: No complaints. Review of Systems Review of Systems: Yes all other systems are reviewed and are negative Physical Exam Vital Signs: Vital Signs: Last Vital Signs Temp 98.3 F 03/14/21 07:51 Pulse 64 03/14/21 09:28 Resp 20 03/14/21 07:51 BP 125/69 03/14/21 09:28 Pulse Ox 97 03/14/21 07:51 BMI result Body Mass Index 20.2 Gen: in no acute distress HEENT: sclera anicteric, moist mucus membranes Neck: supple Lungs: clear to auscultation bilaterally Heart: regular rate and rhythm, no murmurs Abd: soft, non-tender, non-distended Ext: no edema Skin: warm/well-perfused Neuro: alert and oriented x3, no focal findings Psych: appropriate affect Objective Data Active Medications Acetaminophen (Acetaminophen 325 Mg Tablet) 650 mg PO Q6H PRN PRN Reason: Pain, Mild (Pain Scale 1-3) Albuterol Sulfate (Albuterol Sulfate 90 Mcg 8 Gm Inhaler) 2 puff INHALE Q4H PRN PRN Reason: Shortness Of Breath Last Admin: 03/10/21 09:07 Dose: 2 puff Documented by: JAE Amlodipine Besylate (Amlodipine Besylate 10 Mg Tablet) 10 mg PO DAILY [facility]; Protocol Last Admin: 03/14/21 09:28 Dose: 10 mg Documented by: NOELLE Aspirin (Aspirin Enteric Coated 81 Mg Tablet.) 81 mg PO DAILY [facility] Last Admin: 03/14/21 09:29 Dose: 81 mg Documented by: NOELLE Atorvastatin Calcium (Atorvastatin Calcium 40 Mg Tablet) 40 mg PO BEDTIME [facility] Last Admin: 03/13/21 21:51 Dose: 40 mg Documented by: RUTH Carvedilol (Carvedilol 12.5 Mg Tablet) 25 mg PO BID [facility]; Protocol Last Admin: 03/14/21 09:27 Dose: 25 mg Documented by: NOELLE Docusate Sodium (Docusate Sodium 100 Mg Capsule) 100 mg PO DAILY PRN PRN Reason: Constipation Last Admin: 03/05/21 08:33 Dose: 100 mg Documented by: BI Enoxaparin Sodium (Enoxaparin Sodium 40 Mg/0.4 Ml Syringe) 40 mg SUBCUT Q24H [facility] Last Admin: 03/13/21 21:51 Dose: 40 mg Documented by: RUTH Fluoxetine HCl (Fluoxetine Hcl 20 Mg Capsule) 40 mg PO DAILY [facility] Last Admin: 03/14/21 09:28 Dose: 40 mg Documented by: NOELLE Folic Acid (Folic Acid 1 Mg Tablet) 1 mg PO DAILY [facility] Last Admin: 03/14/21 09:29 Dose: 1 mg Documented by: NOELLE Labetalol HCl (Labetalol Hcl 100 Mg/20 Ml Vial) 20 mg IVPUSH Q20M PRN PRN Reason: SBP > 160 Last Admin: 03/04/21 06:39 Dose: 20 mg Documented by: ORLANDO Melatonin (Melatonin 3 Mg Tablet) 6 mg PO BEDTIME PRN PRN Reason: Insomnia Last Admin: 03/13/21 21:51 Dose: 6 mg Documented by: RUTH Multivitamins/Vitamin C (Multivitamin Tablet) 1 tab PO DAILY [facility] Last Admin: 03/14/21 09:26 Dose: 1 tab Documented by: NOELLE Ondansetron HCl (Ondansetron Hcl 4 Mg/2 Ml Vial) 4 mg IVPUSH Q8H PRN PRN Reason: Nausea and Vomiting Oxcarbazepine (Oxcarbazepine 150 Mg Tablet) 150 mg PO TID [facility] Last Admin: 03/14/21 09:29 Dose: 150 mg Documented by: NOELLE Pharmacy Consult (Consult Rx Perform Med Rec) 1 each MISCELLANE ONCE PRN PRN Reason: Consult order Sodium Chloride (0.9 % Sodium Chloride Flush 3 Ml Syringe) 3 ml IVFLUSH QSHIFT [facility] Last Admin: 03/14/21 09:31 Dose: 3 ml Documented by: NOELLE Spironolactone (Spironolactone 25 Mg Tablet) 50 mg PO DAILY [facility]; Protocol Last Admin: 03/14/21 09:27 Dose: 50 mg Documented by: NOELLE Thiamine HCl (Thiamine Hcl 100 Mg Tablet) 100 mg PO DAILY [facility] Last Admin: 03/14/21 09:29 Dose: 100 mg Documented by: NOELLE Labs CBC & Chem 7: 03/14/21 06:46 03/14/21 06:46 Labs: Laboratory Results - last 24 hr 03/02/21 03/14/21 03/14/21 12:20 06:46 06:46 MCV 92.7 MCH 30.9 MCHC 33.3 RDW 14.6 Plt Count 311 MPV 8.7 L Immature Gran % (Auto) 0.3 Neut % (Auto) 67.6 Lymph % (Auto) 16.7 L [place] % (Auto) 10.8 Eos % (Auto) 3.6 Baso % (Auto) 1.0 Lymph # (Auto) 1.5 [place] # (Auto) 1.0 Eos # (Auto) 0.3 Baso # (Auto) 0.1 Abs Immat Gran (auto) 0.03 Absolute Neuts (auto) 6.2 Absolute Nucleated RBC 0.000 Nucleated RBC % (auto) 0.0 Anion Gap 11 L Estim Creat Clear Calc 45.7 Estimated GFR 50 Random Glucose TNP Fasting Glucose 110 H Calcium 8.2 L Total Bilirubin 0.2 AST 21 ALT 16 Alkaline Phosphatase 91 Total Protein 5.4 L Albumin 2.7 L Renin Activity 45.41 H Aldosterone 95 Aldosterone/Renin Ratio 2.1 Assessment and Plan (1) Pneumonia: Status: Acute (2) MAI (acute kidney injury): Status: Acute (3) Atherosclerotic cardiovascular disease: Status: Acute Assessment and Plan: hospital d#13 60yo M with hx EtOH abuse admitted for hypoNa, hypoK, and EtOH withdrawal # hypoNa - resolved with fluid restriction, consider change in psych meds as outpt [on fluoxetine + oxcarbazepine and the latter is particularly notorious for hypoNa] # hypoK - repleted # HTN - continue amlodipine + carvedilol + spironolactone, added lisionpril yesterday but will stop given increase SCr, monitor for now # EtOH withdrawal - phenobarbital taper completed, continue B vitamins # VTE ppx - LMWH # dispo - awaiting STR, complicated by Covid-19 unvaccinated status + homelessness Quality Stroke Does the patient have a stroke diagnosis?: No VTE Prior VTE?: No VTE Risk Level:: Medical - moderate - high VTE Device Contraindication: Treatment Not Indicated VTE Drug Contraindication: N/A - Med Ordered
[2021-03-14] MEDS: Atorvastatin Calcium 40 MG TABLET PO (21:19)
[2021-03-14] MEDS: Enoxaparin Sodium 40 MG/0.4 ML SYRINGE SUBCUT (21:20)
[2021-03-14] MEDS: Melatonin 3 MG TABLET 6 MG PO (21:22)
[2021-03-15] VITALS (9 sets, daily range): BP systolic 107–154; BP diastolic 64–92; PULSE 66–80; RESP 17–20; TEMP 36.1–37.1; O2SAT 95–99
[2021-03-15 06:55] LABS: Anion Gap 11 (12-20); Blood Urea Nitrogen 22 mg/dL (9-16); Calcium 8.3 mg/dL (8.4-10.2); Carbon Dioxide 30 mmol/L (22-29); Chloride 101 mmol/L (96-108); Creatinine Clr Calc Pharmacy 42.3; Estimated Glomerular Filt Rate 45; Glucose Random 106 mg/dL (60-115); Potassium 3.5 mmol/L (3.3-5.1); Sodium 138 mmol/L (135-145)
[2021-03-15] MEDS: 0.9 % Sodium Chloride Flush 3 ML SYRINGE IVFLUSH ×3 (09:43→21:45)
[2021-03-15] MEDS: Folic Acid 1 MG TABLET PO (09:44)
[2021-03-15] MEDS: OXcarbazepine 150 MG TABLET PO ×3 (09:44→21:38)
[2021-03-15] MEDS: FLUoxetine HCl 20 MG CAPSULE 40 MG PO (09:44)
[2021-03-15] MEDS: carvediloL 12.5 MG TABLET 25 MG PO ×2 (09:44→21:38)
[2021-03-15] MEDS: Aspirin Enteric Coated 81 MG TABLET.DR PO (09:44)
[2021-03-15] MEDS: Spironolactone 25 MG TABLET 50 MG PO (09:44)
[2021-03-15] MEDS: Multivitamin TABLET 1 TAB PO (09:45)
[2021-03-15] MEDS: amLODIPine Besylate 10 MG TABLET PO (09:45)
[2021-03-15] MEDS: Thiamine HCL 100 MG TABLET PO (09:45)
[2021-03-15] MEDS: 0.9 % Sodium Chloride 1,000 ML 125 ML IVCONT ×2 (09:46→15:43)
--- NOTE | 2021-03-15 12:01 | PM.PNNEP ---
Subjective Subjective Date of Service: 03/17/21 Principal diagnosis: hypoNa, HTN, MAI Interval history: Events noted Physical Exam Vital Signs: Vital Signs: Last Vital Signs Temp 96.9 F 03/15/21 08:00 Pulse 71 03/15/21 09:45 Resp 18 03/15/21 08:00 BP 129/68 03/15/21 09:45 Pulse Ox 99 03/15/21 08:00 BMI result Body Mass Index 20.2 Const: Other: vague but no acute distress General: cooperative and no acute distress Orientation/consciousness: patient oriented x3 HENMT: Other: Unremarkable Eyes: General: appearance normal, both eyes and all related structures Pupils: Equal, round and reactive pupils present Neck: Neck: Yes normal visual inspection and Yes supple Chest: Chest palpation & inspection: normal inspection of the chest Resp: Other: clear to auscultation bilaterally with scant crackles at bases Effort & Inspection: normal respiratory effort Auscultation: clear to auscultation bilaterally and diminished lung sounds Cardio: Other: no S4; positive S1-S2; no S3 murmurs rubs or gallop Palpation: normal PMI Rate: regular rate Rhythm: regular rhythm Heart sounds: S1 normal heart sound present, S2 normal heart sound present, no gallops, no murmurs and no rubs GI: Other: soft nontender nondistended with normoactive bowel sounds Palpation (GI): Soft to palpation and nontender Auscultation: normal bowel sounds Back/Spine/Pelvis: Other: unremarkable Skin: General skin exam: no rashes or lesions noted Lesions: other Neuro: Other: cranial nerves 2-12 grossly intact as tested. Moves all extremities with equal power General: patient oriented x3 Cranial nerves: Yes Equal, round and reactive pupils present and Yes Other cranial nerve findings present Cognition (Neuro): normal cognition Extrem: Other: no edema bilateral General: Yes normal to inspection, Yes no pedal edema, No edema and Yes other Psych: Mental Status: other Objective Data Labs CBC & Chem 7: 03/14/21 06:46 03/16/21 06:05 Labs: Laboratory Results - last 24 hr 03/15/21 06:27 Sodium 138 Potassium 3.5 Chloride 101 Carbon Dioxide 30 H Anion Gap 11 L BUN 22 H Creatinine 1.58 H Estim Creat Clear Calc 42.3 Estimated GFR 45 Random Glucose 106 Calcium 8.3 L Microbiology Microbiology Results: Microbiology 03/01/21 13:01 Blood - Venous Blood Culture - Final No growth after 5 days. 03/01/21 13:01 Blood - Venous Blood Culture - Final No growth after 5 days. Procedures Date of Service Date of Service: 03/15/21 Assessment & Plan Assessment and plan (1) Pneumonia: Status: Acute (2) MAI (acute kidney injury): Status: Acute (3) Atherosclerotic cardiovascular disease: Status: Acute Assessment and Plan: hospital d#13 60yo M with hx EtOH abuse admitted for hypoNa, hypoK, and EtOH withdrawal Hyponatremia/Hypokalemia- resolved MAI Probably due to hypotension Hold Spironolactone for now Avoid hypotension Time Spent With Patient Time: Total time spent is greater than 50% in coordination of care (as documented) at patient's floor/unit and/or counseling patient: Time with patient: 15 - 24 minutes Progress Note: Quality Stroke Does the patient have a stroke diagnosis?: No
--- NOTE | 2021-03-15 12:43 | P.PNIM_ITS ---
Subjective Subjective Date of Service: 03/15/21 Interval History: no complaints, awaiting disposition Review of Systems Review of Systems: Yes all other systems are reviewed and are negative Physical Exam Vital Signs: Vital Signs: Last Vital Signs Temp 96.9 F 03/15/21 08:00 Pulse 71 03/15/21 09:45 Resp 18 03/15/21 08:00 BP 129/68 03/15/21 09:45 Pulse Ox 99 03/15/21 08:00 BMI result Body Mass Index 20.2 Gen: in no acute distress HEENT: sclera anicteric, moist mucus membranes Neck: supple Lungs: clear to auscultation bilaterally Heart: regular rate and rhythm, no murmurs Abd: soft, non-tender, non-distended Ext: no edema Skin: warm/well-perfused Neuro: alert and oriented x3, no focal findings Psych: appropriate affect Objective Data Active Medications Acetaminophen (Acetaminophen 325 Mg Tablet) 650 mg PO Q6H PRN PRN Reason: Pain, Mild (Pain Scale 1-3) Albuterol Sulfate (Albuterol Sulfate 90 Mcg 8 Gm Inhaler) 2 puff INHALE Q4H PRN PRN Reason: Shortness Of Breath Last Admin: 03/10/21 09:07 Dose: 2 puff Documented by: JAE Amlodipine Besylate (Amlodipine Besylate 10 Mg Tablet) 10 mg PO DAILY [facility]; Protocol Last Admin: 03/15/21 09:45 Dose: 10 mg Documented by: BI Aspirin (Aspirin Enteric Coated 81 Mg Tablet.) 81 mg PO DAILY [facility] Last Admin: 03/15/21 09:44 Dose: 81 mg Documented by: BI Atorvastatin Calcium (Atorvastatin Calcium 40 Mg Tablet) 40 mg PO BEDTIME [facility] Last Admin: 03/14/21 21:19 Dose: 40 mg Documented by: ENRIQUE Carvedilol (Carvedilol 12.5 Mg Tablet) 25 mg PO BID [facility]; Protocol Last Admin: 03/15/21 09:44 Dose: 25 mg Documented by: BI Docusate Sodium (Docusate Sodium 100 Mg Capsule) 100 mg PO DAILY PRN PRN Reason: Constipation Last Admin: 03/05/21 08:33 Dose: 100 mg Documented by: BI Enoxaparin Sodium (Enoxaparin Sodium 40 Mg/0.4 Ml Syringe) 40 mg SUBCUT Q24H [facility] Last Admin: 03/14/21 21:20 Dose: 40 mg Documented by: ENRIQUE Fluoxetine HCl (Fluoxetine Hcl 20 Mg Capsule) 40 mg PO DAILY [facility] Last Admin: 03/15/21 09:44 Dose: 40 mg Documented by: BI Folic Acid (Folic Acid 1 Mg Tablet) 1 mg PO DAILY [facility] Last Admin: 03/15/21 09:44 Dose: 1 mg Documented by: BI Sodium Chloride (Ns) 1,000 mls @ 125 mls/hr IVCONT .Q8H [facility] Stop: 03/16/21 00:44 Last Admin: 03/15/21 09:46 Dose: 125 mls/hr Documented by: BI Labetalol HCl (Labetalol Hcl 100 Mg/20 Ml Vial) 20 mg IVPUSH Q20M PRN PRN Reason: SBP > 160 Last Admin: 03/04/21 06:39 Dose: 20 mg Documented by: ORLANDO Melatonin (Melatonin 3 Mg Tablet) 6 mg PO BEDTIME PRN PRN Reason: Insomnia Last Admin: 03/14/21 21:22 Dose: 6 mg Documented by: ENRIQUE Multivitamins/Vitamin C (Multivitamin Tablet) 1 tab PO DAILY [facility] Last Admin: 03/15/21 09:45 Dose: 1 tab Documented by: BI Ondansetron HCl (Ondansetron Hcl 4 Mg/2 Ml Vial) 4 mg IVPUSH Q8H PRN PRN Reason: Nausea and Vomiting Oxcarbazepine (Oxcarbazepine 150 Mg Tablet) 150 mg PO TID [facility] Last Admin: 03/15/21 09:44 Dose: 150 mg Documented by: BI Pharmacy Consult (Consult Rx Perform Med Rec) 1 each MISCELLANE ONCE PRN PRN Reason: Consult order Sodium Chloride (0.9 % Sodium Chloride Flush 3 Ml Syringe) 3 ml IVFLUSH QSHIFT [facility] Last Admin: 03/15/21 09:43 Dose: 3 ml Documented by: BI Spironolactone (Spironolactone 25 Mg Tablet) 50 mg PO DAILY [facility]; Protocol Last Admin: 03/15/21 09:44 Dose: 50 mg Documented by: BI Thiamine HCl (Thiamine Hcl 100 Mg Tablet) 100 mg PO DAILY [facility] Last Admin: 03/15/21 09:45 Dose: 100 mg Documented by: BI Labs CBC & Chem 7: 03/14/21 06:46 03/15/21 06:27 Labs: Laboratory Results - last 24 hr 03/15/21 06:27 Anion Gap 11 L Estim Creat Clear Calc 42.3 Estimated GFR 45 Random Glucose 106 Calcium 8.3 L Assessment and Plan (1) Pneumonia: Status: Acute (2) MAI (acute kidney injury): Status: Acute (3) Atherosclerotic cardiovascular disease: Status: Acute Assessment and Plan: hospital d#15 60yo M with hx EtOH abuse admitted for hypoNa, hypoK, and EtOH withdrawal # hypoNa - resolved with fluid restriction, consider change in psych meds as outpt [on fluoxetine + oxcarbazepine and the latter is particularly notorious for hypoNa] # hypoK - repleted # HTN # renal insufficiency - continue amlodipine + carvedilol + spironolactone, added lisinopril 2d ago but stopped yesterday due to increased SCr, will give 2L IV NS as SCr has increased more today # EtOH withdrawal - phenobarbital taper completed, continue B vitamins # VTE ppx - LMWH # dispo - awaiting STR, complicated by Covid-19 unvaccinated status + homelessness Quality Stroke Does the patient have a stroke diagnosis?: No VTE Prior VTE?: No VTE Risk Level:: Medical - moderate - high VTE Device Contraindication: Treatment Not Indicated VTE Drug Contraindication: N/A - Med Ordered
[2021-03-15] MEDS: Atorvastatin Calcium 40 MG TABLET PO (21:38)
[2021-03-15] MEDS: Enoxaparin Sodium 40 MG/0.4 ML SYRINGE SUBCUT (21:41)
[2021-03-16] VITALS (7 sets, daily range): BP systolic 141–176; BP diastolic 69–94; PULSE 72–79; RESP 16–18; TEMP 36.4–37; O2SAT 93–99
[2021-03-16 07:07] LABS: Anion Gap 10 (12-20); Blood Urea Nitrogen 18 mg/dL (9-16); Calcium 8.1 mg/dL (8.4-10.2); Carbon Dioxide 27 mmol/L (22-29); Chloride 103 mmol/L (96-108); Creatinine Clr Calc Pharmacy 50.2; Estimated Glomerular Filt Rate 55; Glucose Random 85 mg/dL (60-115); Sodium 136 mmol/L (135-145)
[2021-03-16] MEDS: Aspirin Enteric Coated 81 MG TABLET.DR PO (10:23)
[2021-03-16] MEDS: OXcarbazepine 150 MG TABLET PO ×3 (10:23→20:57)
[2021-03-16] MEDS: 0.9 % Sodium Chloride Flush 3 ML SYRINGE IVFLUSH ×3 (10:23→20:59)
[2021-03-16] MEDS: carvediloL 12.5 MG TABLET 25 MG PO ×2 (10:26→20:57)
[2021-03-16] MEDS: Folic Acid 1 MG TABLET PO (10:26)
[2021-03-16] MEDS: Multivitamin TABLET 1 TAB PO (10:26)
[2021-03-16] MEDS: Thiamine HCL 100 MG TABLET PO (10:26)
[2021-03-16] MEDS: amLODIPine Besylate 10 MG TABLET PO (10:26)
[2021-03-16] MEDS: FLUoxetine HCl 20 MG CAPSULE 40 MG PO (10:26)
[2021-03-16] MEDS: Spironolactone 25 MG TABLET 50 MG PO (10:27)
--- NOTE | 2021-03-16 10:27 | P.PNIM_ITS ---
Subjective Subjective Date of Service: 03/16/21 Interval History: No new complaints. No N/V/abd pain. No withdrawal symptoms. Review of Systems Review of Systems: Yes all other systems are reviewed and are negative Physical Exam Vital Signs: Vital Signs: Last Vital Signs Temp 97.6 F 03/16/21 08:00 Pulse 72 03/16/21 10:13 Resp 18 03/16/21 08:00 BP 176/88 H 03/16/21 10:13 Pulse Ox 98 03/16/21 10:13 BMI result Body Mass Index 20.2 Gen: in no acute distress HEENT: sclera anicteric, moist mucus membranes Neck: supple Lungs: clear to auscultation bilaterally Heart: regular rate and rhythm, no murmurs Abd: soft, non-tender, non-distended Ext: no edema Skin: warm/well-perfused Neuro: alert and oriented x3, no focal findings Psych: appropriate affect Objective Data Active Medications Acetaminophen (Acetaminophen 325 Mg Tablet) 650 mg PO Q6H PRN PRN Reason: Pain, Mild (Pain Scale 1-3) Albuterol Sulfate (Albuterol Sulfate 90 Mcg 8 Gm Inhaler) 2 puff INHALE Q4H PRN PRN Reason: Shortness Of Breath Last Admin: 03/10/21 09:07 Dose: 2 puff Documented by: JEA Amlodipine Besylate (Amlodipine Besylate 10 Mg Tablet) 10 mg PO DAILY [facility]; Protocol Last Admin: 03/15/21 09:45 Dose: 10 mg Documented by: BI Aspirin (Aspirin Enteric Coated 81 Mg Tablet.) 81 mg PO DAILY [facility] Last Admin: 03/16/21 10:23 Dose: 81 mg Documented by: CASSIE Atorvastatin Calcium (Atorvastatin Calcium 40 Mg Tablet) 40 mg PO BEDTIME [facility] Last Admin: 03/15/21 21:38 Dose: 40 mg Documented by: MARY Carvedilol (Carvedilol 12.5 Mg Tablet) 25 mg PO BID [facility]; Protocol Last Admin: 03/15/21 21:38 Dose: 25 mg Documented by: MARY Docusate Sodium (Docusate Sodium 100 Mg Capsule) 100 mg PO DAILY PRN PRN Reason: Constipation Last Admin: 03/05/21 08:33 Dose: 100 mg Documented by: BI Enoxaparin Sodium (Enoxaparin Sodium 40 Mg/0.4 Ml Syringe) 40 mg SUBCUT Q24H [facility] Last Admin: 03/15/21 21:41 Dose: 40 mg Documented by: MARY Fluoxetine HCl (Fluoxetine Hcl 20 Mg Capsule) 40 mg PO DAILY [facility] Last Admin: 03/15/21 09:44 Dose: 40 mg Documented by: BI Folic Acid (Folic Acid 1 Mg Tablet) 1 mg PO DAILY [facility] Last Admin: 03/15/21 09:44 Dose: 1 mg Documented by: BI Labetalol HCl (Labetalol Hcl 100 Mg/20 Ml Vial) 20 mg IVPUSH Q20M PRN PRN Reason: SBP > 160 Last Admin: 03/04/21 06:39 Dose: 20 mg Documented by: ORLANDO Melatonin (Melatonin 3 Mg Tablet) 6 mg PO BEDTIME PRN PRN Reason: Insomnia Last Admin: 03/14/21 21:22 Dose: 6 mg Documented by: ANTOIC Multivitamins/Vitamin C (Multivitamin Tablet) 1 tab PO DAILY [facility] Last Admin: 03/15/21 09:45 Dose: 1 tab Documented by: BI Ondansetron HCl (Ondansetron Hcl 4 Mg/2 Ml Vial) 4 mg IVPUSH Q8H PRN PRN Reason: Nausea and Vomiting Oxcarbazepine (Oxcarbazepine 150 Mg Tablet) 150 mg PO TID [facility] Last Admin: 03/16/21 10:23 Dose: 150 mg Documented by: CASSIE Pharmacy Consult (Consult Rx Perform Med Rec) 1 each MISCELLANE ONCE PRN PRN Reason: Consult order Sodium Chloride (0.9 % Sodium Chloride Flush 3 Ml Syringe) 3 ml IVFLUSH QSHIFT [facility] Last Admin: 03/16/21 10:23 Dose: 3 ml Documented by: CASSIE Spironolactone (Spironolactone 25 Mg Tablet) 50 mg PO DAILY [facility]; Protocol Last Admin: 03/15/21 09:44 Dose: 50 mg Documented by: BI Thiamine HCl (Thiamine Hcl 100 Mg Tablet) 100 mg PO DAILY [facility] Last Admin: 03/15/21 09:45 Dose: 100 mg Documented by: BI Labs CBC & Chem 7: 03/14/21 06:46 03/16/21 06:05 Labs: Laboratory Results - last 24 hr 03/16/21 06:05 Anion Gap 10 L Estim Creat Clear Calc 50.2 Estimated GFR 55 Random Glucose 85 Calcium 8.1 L Assessment and Plan (1) Pneumonia: Status: Acute (2) MAI (acute kidney injury): Status: Acute (3) Atherosclerotic cardiovascular disease: Status: Acute Assessment and Plan: hospital d#16 60yo M with hx EtOH abuse admitted for hypoNa, hypoK, and EtOH withdrawal # hypoNa - resolved with fluid restriction, consider change in psych meds as outpt [on fluoxetine + oxcarbazepine and the latter is particularly notorious for hypoNa] # hypoK - repleted # HTN - continue amlodipine + carvedilol + spironolactone # EtOH withdrawal - phenobarbital taper completed, continue B vitamins # VTE ppx - LMWH # dispo - awaiting STR, complicated by Covid-19 unvaccinated status + homelessness - PT re-eval today continues to recommend STR Quality Stroke Does the patient have a stroke diagnosis?: No VTE Prior VTE?: No VTE Risk Level:: Medical - moderate - high VTE Device Contraindication: Treatment Not Indicated VTE Drug Contraindication: N/A - Med Ordered
--- NOTE | 2021-03-16 11:43 | PM.PNNEP ---
Subjective Subjective Date of Service: 03/19/21 Principal diagnosis: hypoNa, HTN, MAI Interval history: No new complaints. No N/V/abd pain. No withdrawal symptoms. Physical Exam Vital Signs: Vital Signs: Last Vital Signs Temp 98.6 F 03/16/21 11:02 Pulse 72 03/16/21 11:02 Resp 17 03/16/21 11:02 BP 162/94 H 03/16/21 11:02 Pulse Ox 99 03/16/21 11:02 BMI result Body Mass Index 20.2 Objective Data Labs CBC & Chem 7: 03/14/21 06:46 03/19/21 06:20 Labs: Laboratory Results - last 24 hr 03/16/21 06:05 Sodium 136 Potassium 4.0 Chloride 103 Carbon Dioxide 27 Anion Gap 10 L BUN 18 H Creatinine 1.33 Estim Creat Clear Calc 50.2 Estimated GFR 55 Random Glucose 85 Calcium 8.1 L Microbiology Microbiology Results: Microbiology 03/01/21 13:01 Blood - Venous Blood Culture - Final No growth after 5 days. 03/01/21 13:01 Blood - Venous Blood Culture - Final No growth after 5 days. Procedures Date of Service Date of Service: 03/16/21 Assessment & Plan Time Spent With Patient Time: Total time spent is greater than 50% in coordination of care (as documented) at patient's floor/unit and/or counseling patient: Progress Note: Quality Stroke Does the patient have a stroke diagnosis?: No
--- NOTE | 2021-03-16 11:44 | PM.PNNEP ---
Subjective Subjective Date of Service: 03/17/21 Principal diagnosis: hypoNa, HTN, MAI Interval history: Events noted Physical Exam Vital Signs: Vital Signs: Last Vital Signs Temp 98.6 F 03/16/21 11:02 Pulse 72 03/16/21 11:02 Resp 17 03/16/21 11:02 BP 162/94 H 03/16/21 11:02 Pulse Ox 99 03/16/21 11:02 BMI result Body Mass Index 20.2 Const: Other: vague but no acute distress General: cooperative and no acute distress Orientation/consciousness: patient oriented x3 HENMT: Other: Unremarkable Eyes: General: appearance normal, both eyes and all related structures Pupils: Equal, round and reactive pupils present Neck: Neck: Yes normal visual inspection and Yes supple Chest: Chest palpation & inspection: normal inspection of the chest Resp: Other: clear to auscultation bilaterally with scant crackles at bases Effort & Inspection: normal respiratory effort Auscultation: clear to auscultation bilaterally and diminished lung sounds Cardio: Other: no S4; positive S1-S2; no S3 murmurs rubs or gallop Palpation: normal PMI Rate: regular rate Rhythm: regular rhythm Heart sounds: S1 normal heart sound present, S2 normal heart sound present, no gallops, no murmurs and no rubs GI: Other: soft nontender nondistended with normoactive bowel sounds Palpation (GI): Soft to palpation and nontender Auscultation: normal bowel sounds Back/Spine/Pelvis: Other: unremarkable Skin: General skin exam: no rashes or lesions noted Lesions: other Neuro: Other: cranial nerves 2-12 grossly intact as tested. Moves all extremities with equal power General: patient oriented x3 Cranial nerves: Yes Equal, round and reactive pupils present and Yes Other cranial nerve findings present Cognition (Neuro): normal cognition Extrem: Other: no edema bilateral General: Yes normal to inspection, Yes no pedal edema, No edema and Yes other Psych: Mental Status: other Objective Data Labs CBC & Chem 7: 03/14/21 06:46 03/16/21 06:05 Labs: Laboratory Results - last 24 hr 03/16/21 06:05 Sodium 136 Potassium 4.0 Chloride 103 Carbon Dioxide 27 Anion Gap 10 L BUN 18 H Creatinine 1.33 Estim Creat Clear Calc 50.2 Estimated GFR 55 Random Glucose 85 Calcium 8.1 L Microbiology Microbiology Results: Microbiology 03/01/21 13:01 Blood - Venous Blood Culture - Final No growth after 5 days. 03/01/21 13:01 Blood - Venous Blood Culture - Final No growth after 5 days. Procedures Date of Service Date of Service: 03/16/21 Assessment & Plan Assessment and plan (1) Pneumonia: Status: Acute (2) MAI (acute kidney injury): Status: Acute (3) Atherosclerotic cardiovascular disease: Status: Acute Assessment and Plan: 60yo M with hx EtOH abuse admitted for hypoNa, hypoK, and EtOH withdrawal Hyponatremia/Hypokalemia- resolved MAI Probably due to hypotension Hold Spironolactone if SBP < 110 mmHg Avoid hypotension Cr back to baseline with IVF Time Spent With Patient Time: Total time spent is greater than 50% in coordination of care (as documented) at patient's floor/unit and/or counseling patient: Time with patient: 15 - 24 minutes Progress Note: Quality Stroke Does the patient have a stroke diagnosis?: No
--- NOTE | 2021-03-16 11:46 | MHC.CLN ---
F/U PO INTAKE 100% DIET RX: REGULAR-APPROPRIATE STAGE 1 BILAT BUTTOCK WILL F/U X 7 DAYS
[2021-03-16] MEDS: Melatonin 3 MG TABLET 6 MG PO (20:57)
[2021-03-16] MEDS: Enoxaparin Sodium 40 MG/0.4 ML SYRINGE SUBCUT (20:57)
[2021-03-16] MEDS: Atorvastatin Calcium 40 MG TABLET PO (20:57)
[2021-03-17] VITALS (8 sets, daily range): BP systolic 148–185; BP diastolic 78–96; PULSE 71–80; RESP 16–20; TEMP 35.4–36.9; O2SAT 95–97
[2021-03-17] MEDS: 0.9 % Sodium Chloride Flush 3 ML SYRINGE IVFLUSH ×3 (09:43→21:09)
[2021-03-17] MEDS: Spironolactone 25 MG TABLET 50 MG PO (09:44)
[2021-03-17] MEDS: Folic Acid 1 MG TABLET PO (09:44)
[2021-03-17] MEDS: Thiamine HCL 100 MG TABLET PO (09:44)
[2021-03-17] MEDS: FLUoxetine HCl 20 MG CAPSULE 40 MG PO (09:44)
[2021-03-17] MEDS: Multivitamin TABLET 1 TAB PO (09:44)
[2021-03-17] MEDS: amLODIPine Besylate 10 MG TABLET PO (09:44)
[2021-03-17] MEDS: OXcarbazepine 150 MG TABLET PO ×3 (09:44→21:08)
[2021-03-17] MEDS: Aspirin Enteric Coated 81 MG TABLET.DR PO (09:45)
[2021-03-17] MEDS: carvediloL 12.5 MG TABLET 25 MG PO ×2 (09:45→21:09)
[2021-03-17] MEDS: Acetaminophen 325 MG TABLET 650 MG PO (09:54)
--- NOTE | 2021-03-17 15:58 | HO.PM.IMPN ---
Subjective Subjective Date of Service: 03/17/21 Interval History: Offers no acute complaints, denies lightheadedness dizziness, no chest pain, no palpitation, complaining of persistent unsteady gait, use walker for ambulation. Review of Systems Review of Systems: Yes all other systems are reviewed and are negative Physical Exam Vital Signs: Vital Signs: Last Vital Signs Temp 98.5 F 03/17/21 15:04 Pulse 80 03/17/21 15:04 Resp 20 03/17/21 15:04 BP 149/88 H 03/17/21 15:04 Pulse Ox 95 03/17/21 15:04 BMI result Body Mass Index 20.2 Gen: Awake alert, in no acute distress HEENT: sclera anicteric, moist mucus membranes Neck: supple, no JVD Lungs: clear to auscultation bilaterally Heart: regular rate and rhythm, no murmurs Abd: soft, non-tender, non-distended, bowel sounds audible Ext: no edema Skin: warm/well-perfused Neuro: alert and oriented x3, no focal findings Psych: appropriate affect ? Objective Data Active Medications Acetaminophen (Acetaminophen 325 Mg Tablet) 650 mg PO Q6H PRN PRN Reason: Pain, Mild (Pain Scale 1-3) Last Admin: 03/17/21 09:54 Dose: 650 mg Documented by: CASSIE Albuterol Sulfate (Albuterol Sulfate 90 Mcg 8 Gm Inhaler) 2 puff INHALE Q4H PRN PRN Reason: Shortness Of Breath Last Admin: 03/10/21 09:07 Dose: 2 puff Documented by: JAE Amlodipine Besylate (Amlodipine Besylate 10 Mg Tablet) 10 mg PO DAILY [facility]; Protocol Last Admin: 03/17/21 09:44 Dose: 10 mg Documented by: CASSIE Aspirin (Aspirin Enteric Coated 81 Mg Tablet.) 81 mg PO DAILY [facility] Last Admin: 03/17/21 09:45 Dose: 81 mg Documented by: CASSIE Atorvastatin Calcium (Atorvastatin Calcium 40 Mg Tablet) 40 mg PO BEDTIME [facility] Last Admin: 03/16/21 20:57 Dose: 40 mg Documented by: RUTH Carvedilol (Carvedilol 12.5 Mg Tablet) 25 mg PO BID [facility]; Protocol Last Admin: 03/17/21 09:45 Dose: 25 mg Documented by: CASSIE Docusate Sodium (Docusate Sodium 100 Mg Capsule) 100 mg PO DAILY PRN PRN Reason: Constipation Last Admin: 03/05/21 08:33 Dose: 100 mg Documented by: BI Enoxaparin Sodium (Enoxaparin Sodium 40 Mg/0.4 Ml Syringe) 40 mg SUBCUT Q24H [facility] Last Admin: 03/16/21 20:57 Dose: 40 mg Documented by: RUTH Fluoxetine HCl (Fluoxetine Hcl 20 Mg Capsule) 40 mg PO DAILY [facility] Last Admin: 03/17/21 09:44 Dose: 40 mg Documented by: CASSIE Folic Acid (Folic Acid 1 Mg Tablet) 1 mg PO DAILY [facility] Last Admin: 03/17/21 09:44 Dose: 1 mg Documented by: CASSIE Labetalol HCl (Labetalol Hcl 100 Mg/20 Ml Vial) 20 mg IVPUSH Q20M PRN PRN Reason: SBP > 160 Last Admin: 03/04/21 06:39 Dose: 20 mg Documented by: ORLANDO Melatonin (Melatonin 3 Mg Tablet) 6 mg PO BEDTIME PRN PRN Reason: Insomnia Last Admin: 03/16/21 20:57 Dose: 6 mg Documented by: RUTH Multivitamins/Vitamin C (Multivitamin Tablet) 1 tab PO DAILY [facility] Last Admin: 03/17/21 09:44 Dose: 1 tab Documented by: CASSIE Ondansetron HCl (Ondansetron Hcl 4 Mg/2 Ml Vial) 4 mg IVPUSH Q8H PRN PRN Reason: Nausea and Vomiting Oxcarbazepine (Oxcarbazepine 150 Mg Tablet) 150 mg PO TID [facility] Last Admin: 03/17/21 09:44 Dose: 150 mg Documented by: CASSIE Pharmacy Consult (Consult Rx Perform Med Rec) 1 each MISCELLANE ONCE PRN PRN Reason: Consult order Sodium Chloride (0.9 % Sodium Chloride Flush 3 Ml Syringe) 3 ml IVFLUSH QSHIFT [facility] Last Admin: 03/17/21 09:43 Dose: 3 ml Documented by: CASSIE Spironolactone (Spironolactone 25 Mg Tablet) 50 mg PO DAILY [facility]; Protocol Last Admin: 03/17/21 09:44 Dose: 50 mg Documented by: CASSIE Thiamine HCl (Thiamine Hcl 100 Mg Tablet) 100 mg PO DAILY [facility] Last Admin: 03/17/21 09:44 Dose: 100 mg Documented by: CASSIE Labs CBC & Chem 7: 03/14/21 06:46 03/16/21 06:05 Assessment and Plan (1) Acute hyponatremia: Status: Acute (2) Acute hypokalemia: Status: Acute (3) Hypertension: Status: Acute (4) H/O ETOH abuse: Status: Acute Assessment and Plan: hospital d#16 60yo M with hx EtOH abuse admitted for hypoNa, hypoK, and EtOH withdrawal # hypoNa - resolved with fluid restriction, consider change in psych meds as outpt [on fluoxetine + oxcarbazepine and the latter is particularly notorious for hypoNa] # hypoK - repleted # HTN/left renal artery stenosis - BP noted to be elevated, on amlodipine + carvedilol + spironolactone, follow BP and discuss further antihypertensive with Nephrology # EtOH withdrawal - phenobarbital taper completed, continue B vitamins # coronary artery disease, echo showed slight LV dysfunction, inferior inferior lateral hypokinesis and basal inferior akinesis seen by Cardiology they recommend aspirin statins and Coreg and due to lack of compliance will hold off ischemia workup at this time, elevated cardiac BNP likely due to LV dysfunction and uncontrolled hypertension. # VTE ppx - LMWH # dispo - awaiting STR, complicated by Covid-19 unvaccinated status + homelessness - PT re-eval today continues to recommend STR Quality Stroke Does the patient have a stroke diagnosis?: No VTE Prior VTE?: No VTE Risk Level:: Medical - moderate - high VTE Device Contraindication: Treatment Not Indicated VTE Drug Contraindication: N/A - Med Ordered
[2021-03-17] MEDS: Melatonin 3 MG TABLET 6 MG PO (21:08)
[2021-03-17] MEDS: Atorvastatin Calcium 40 MG TABLET PO (21:08)
[2021-03-17] MEDS: Enoxaparin Sodium 40 MG/0.4 ML SYRINGE SUBCUT (21:09)
[2021-03-17] MEDS: Albuterol Sulfate 90 MCG 8 GM INHALER 2 PUFF INHALE (21:13)
[2021-03-18 04:00] VITALS: BP 154/96; PULSE 76; RESP 20; TEMP 37.2; O2SAT 96
[2021-03-18 07:31] VITALS: BP 178/100; PULSE 75; RESP 16; TEMP 36.8; O2SAT 96
[2021-03-18] MEDS: FLUoxetine HCl 20 MG CAPSULE 40 MG PO (09:11)
[2021-03-18] MEDS: carvediloL 12.5 MG TABLET 25 MG PO ×2 (09:11→20:51)
[2021-03-18] MEDS: Folic Acid 1 MG TABLET PO (09:11)
[2021-03-18] MEDS: Thiamine HCL 100 MG TABLET PO (09:11)
[2021-03-18] MEDS: OXcarbazepine 150 MG TABLET PO ×3 (09:11→20:51)
[2021-03-18] MEDS: Aspirin Enteric Coated 81 MG TABLET.DR PO (09:11)
[2021-03-18] MEDS: amLODIPine Besylate 10 MG TABLET PO (09:11)
[2021-03-18] MEDS: Multivitamin TABLET 1 TAB PO (09:11)
[2021-03-18] MEDS: Spironolactone 25 MG TABLET 50 MG PO (09:11)
[2021-03-18] MEDS: 0.9 % Sodium Chloride Flush 3 ML SYRINGE IVFLUSH ×3 (09:12→20:52)
--- NOTE | 2021-03-18 10:49 | P.PNNP_ITS ---
Subjective Subjective Date of Service: 03/19/21 Principal diagnosis: hypoNa, HTN, MAI Interval history: Events noted BP elevated Physical Exam Vital Signs: Vital Signs: Last Vital Signs Temp 98.2 F 03/18/21 07:31 Pulse 75 03/18/21 07:31 Resp 16 03/18/21 07:31 BP 178/100 H 03/18/21 07:31 Pulse Ox 96 03/18/21 07:31 BMI result Body Mass Index 20.2 Const: Other: vague but no acute distress General: cooperative and no acute distress Orientation/consciousness: patient oriented x3 HENMT: Other: Unremarkable Eyes: General: appearance normal, both eyes and all related structures Pupils: Equal, round and reactive pupils present Neck: Neck: Yes normal visual inspection and Yes supple Chest: Chest palpation & inspection: normal inspection of the chest Resp: Other: clear to auscultation bilaterally with scant crackles at bases Effort & Inspection: normal respiratory effort Auscultation: clear to auscultation bilaterally and diminished lung sounds Cardio: Other: no S4; positive S1-S2; no S3 murmurs rubs or gallop Palpation: normal PMI Rate: regular rate Rhythm: regular rhythm Heart sounds: S1 normal heart sound present, S2 normal heart sound present, no gallops, no murmurs and no rubs GI: Other: soft nontender nondistended with normoactive bowel sounds Palpation (GI): Soft to palpation and nontender Auscultation: normal bowel sounds Back/Spine/Pelvis: Other: unremarkable Skin: General skin exam: no rashes or lesions noted Lesions: other Neuro: Other: cranial nerves 2-12 grossly intact as tested. Moves all extremities with equal power General: patient oriented x3 Cranial nerves: Yes Equal, round and reactive pupils present and Yes Other cranial nerve findings present Cognition (Neuro): normal cognition Extrem: Other: no edema bilateral General: Yes normal to inspection, Yes no pedal edema, No edema and Yes other Psych: Mental Status: other Objective Data Labs CBC & Chem 7: 03/14/21 06:46 03/19/21 06:20 Microbiology Microbiology Results: Microbiology 03/01/21 13:01 Blood - Venous Blood Culture - Final No growth after 5 days. 03/01/21 13:01 Blood - Venous Blood Culture - Final No growth after 5 days. Procedures Date of Service Date of Service: 03/18/21 Assessment & Plan Assessment and plan (1) Pneumonia: Status: Acute (2) MAI (acute kidney injury): Status: Acute (3) Atherosclerotic cardiovascular disease: Status: Acute Assessment and Plan: 60yo M with hx EtOH abuse admitted for hypoNa, hypoK, and EtOH withdrawal Hyponatremia/Hypokalemia- resolved HTN : CTA showed occluded left Reanl artery with atrophic left kidney. Right RA - patent Renin was elevated Suggestive of RVH DC Aldactone Trial of Losartan 25 mg BID and watch Creatinine Needs renal aniogram - I will arrange as outpatient after discharge MAI Probably due to hypotension Improving Avoid hypotension Cr back to baseline with IVF Time Spent With Patient Time: Total time spent is greater than 50% in coordination of care (as do cumented) at patient's floor/unit and/or counseling patient: Time with patient: 25 - 35 minutes Progress Note: Quality Stroke Does the patient have a stroke diagnosis?: No
--- NOTE | 2021-03-18 11:22 | MHC.CM.PN ---
Per ROUNDS discussion,Patient's BP is elevated. A BROAD SNF search is ongoing and CM will continue to follow.
[2021-03-18 11:35] VITALS: BP 170/84; PULSE 72; RESP 20; TEMP 37; O2SAT 98
--- NOTE | 2021-03-18 15:40 | HO.PM.IMPN ---
Subjective Subjective Date of Service: 03/18/21 Interval History: No fevers, no chills, no lightheadedness, no dizziness noted to have elevated blood pressure this morning, continue to have unsteady gait. Review of Systems Review of Systems: Yes all other systems are reviewed and are negative Physical Exam Vital Signs: Vital Signs: Last Vital Signs Temp 98.6 F 03/18/21 11:35 Pulse 72 03/18/21 11:35 Resp 20 03/18/21 11:35 BP 170/84 H 03/18/21 11:35 Pulse Ox 98 03/18/21 11:35 BMI result Body Mass Index 20.2 Gen:? Awake alert, in no acute distress Neck: supple, no JVD Lungs: clear to auscultation bilaterally Heart: regular rate and rhythm, no murmurs Abd: soft, non-tender, non-distended, bowel sounds audible Ext: no edema Skin: warm/well-perfused Neuro: alert and oriented x3, no focal findings Psych: appropriate affect ? Objective Data Active Medications Acetaminophen (Acetaminophen 325 Mg Tablet) 650 mg PO Q6H PRN PRN Reason: Pain, Mild (Pain Scale 1-3) Last Admin: 03/17/21 09:54 Dose: 650 mg Documented by: CASSIE Albuterol Sulfate (Albuterol Sulfate 90 Mcg 8 Gm Inhaler) 2 puff INHALE Q4H PRN PRN Reason: Shortness Of Breath Last Admin: 03/17/21 21:13 Dose: 2 puff Documented by: MARCO A Amlodipine Besylate (Amlodipine Besylate 10 Mg Tablet) 10 mg PO DAILY [facility]; Protocol Last Admin: 03/18/21 09:11 Dose: 10 mg Documented by: HARINDER Aspirin (Aspirin Enteric Coated 81 Mg Tablet.) 81 mg PO DAILY [facility] Last Admin: 03/18/21 09:11 Dose: 81 mg Documented by: HARINDER Atorvastatin Calcium (Atorvastatin Calcium 40 Mg Tablet) 40 mg PO BEDTIME [facility] Last Admin: 03/17/21 21:08 Dose: 40 mg Documented by: MARCO A Carvedilol (Carvedilol 12.5 Mg Tablet) 25 mg PO BID [facility]; Protocol Last Admin: 03/18/21 09:11 Dose: 25 mg Documented by: HARINDER Docusate Sodium (Docusate Sodium 100 Mg Capsule) 100 mg PO DAILY PRN PRN Reason: Constipation Last Admin: 03/05/21 08:33 Dose: 100 mg Documented by: BI Enoxaparin Sodium (Enoxaparin Sodium 40 Mg/0.4 Ml Syringe) 40 mg SUBCUT Q24H [facility] Last Admin: 03/17/21 21:09 Dose: 40 mg Documented by: MARCO A Fluoxetine HCl (Fluoxetine Hcl 20 Mg Capsule) 40 mg PO DAILY [facility] Last Admin: 03/18/21 09:11 Dose: 40 mg Documented by: HARINDER Folic Acid (Folic Acid 1 Mg Tablet) 1 mg PO DAILY [facility] Last Admin: 03/18/21 09:11 Dose: 1 mg Documented by: HARINDER Labetalol HCl (Labetalol Hcl 100 Mg/20 Ml Vial) 20 mg IVPUSH Q20M PRN PRN Reason: SBP > 160 Last Admin: 03/04/21 06:39 Dose: 20 mg Documented by: ORLANDO Melatonin (Melatonin 3 Mg Tablet) 6 mg PO BEDTIME PRN PRN Reason: Insomnia Last Admin: 03/17/21 21:08 Dose: 6 mg Documented by: MARCO A Multivitamins/Vitamin C (Multivitamin Tablet) 1 tab PO DAILY [facility] Last Admin: 03/18/21 09:11 Dose: 1 tab Documented by: HARINDER Ondansetron HCl (Ondansetron Hcl 4 Mg/2 Ml Vial) 4 mg IVPUSH Q8H PRN PRN Reason: Nausea and Vomiting Oxcarbazepine (Oxcarbazepine 150 Mg Tablet) 150 mg PO TID [facility] Last Admin: 03/18/21 09:11 Dose: 150 mg Documented by: HARINDER Pharmacy Consult (Consult Rx Perform Med Rec) 1 each MISCELLANE ONCE PRN PRN Reason: Consult order Sodium Chloride (0.9 % Sodium Chloride Flush 3 Ml Syringe) 3 ml IVFLUSH QSHIFT [facility] Last Admin: 03/18/21 09:12 Dose: 3 ml Documented by: HARINDER Spironolactone (Spironolactone 25 Mg Tablet) 50 mg PO DAILY [facility]; Protocol Last Admin: 03/18/21 09:11 Dose: 50 mg Documented by: HO.KODOSOB Thiamine HCl (Thiamine Hcl 100 Mg Tablet) 100 mg PO DAILY [facility] Last Admin: 03/18/21 09:11 Dose: 100 mg Documented by: HARINDER Labs CBC & Chem 7: 03/14/21 06:46 03/16/21 06:05 Assessment and Plan (1) Pneumonia: Status: Acute (2) HENNY (renal artery stenosis): Status: Acute Assessment and Plan: hospital d#17 60yo M with hx EtOH abuse admitted for hypoNa, hypoK, and EtOH withdrawal # hypoNa - resolved with fluid restriction, consider change in psych meds as outpt [on fluoxetine + oxcarbazepine and the latter is particularly notorious for hypoNa] # hypoK - repleted # HTN/left renal artery stenosis - BP noted to be elevated, on amlodipine + carvedilol + spironolactone, Case discussed with Nephrology they recommend to DC spironolactone and start patient on losartan 25 mg b.i.d., they will arrange for outpatient angiogram # EtOH withdrawal - phenobarbital taper completed, continue B vitamins # coronary artery disease, echo showed slight LV dysfunction, inferior inferior lateral hypokinesis and basal inferior akinesis seen by Cardiology they recommend aspirin statins and Coreg and due to lack of compliance will hold ?? off ischemia workup at this time, elevated cardiac BNP likely due to LV dysfunction and uncontrolled hypertension. # VTE ppx - [facility]WH # dispo - awaiting STR, complicated by Covid-19 unvaccinated status + homelessness - PT re-eval today continues to recommend STR Quality Stroke Does the patient have a stroke diagnosis?: No VTE Prior VTE?: No VTE Risk Level:: Medical - moderate - high VTE Device Contraindication: Treatment Not Indicated VTE Drug Contraindication: N/A - Med Ordered
[2021-03-18 15:52] VITALS: BP 180/100; PULSE 76; RESP 18; TEMP 36.6; O2SAT 97
[2021-03-18 20:00] VITALS: BP 178/90; PULSE 85; RESP 18; TEMP 36.6; O2SAT 95
[2021-03-18] MEDS: Atorvastatin Calcium 40 MG TABLET PO (20:51)
[2021-03-18] MEDS: Losartan Potassium 25 MG TABLET PO (20:51)
[2021-03-18] MEDS: Enoxaparin Sodium 40 MG/0.4 ML SYRINGE SUBCUT (22:44)
[2021-03-19] VITALS (7 sets, daily range): BP systolic 112–181; BP diastolic 64–96; PULSE 68–102; RESP 18–20; TEMP 35.9–37; O2SAT 94–97
[2021-03-19 06:57] LABS: Anion Gap 10 (12-20); Blood Urea Nitrogen 14 mg/dL (9-16); Calcium 8.4 mg/dL (8.4-10.2); Carbon Dioxide 27 mmol/L (22-29); Chloride 99 mmol/L (96-108); Creatinine Clr Calc Pharmacy 56.6; Estimated Glomerular Filt Rate > 60; Glucose Random 90 mg/dL (60-115); Sodium 132 mmol/L (135-145)
[2021-03-19] MEDS: Multivitamin TABLET 1 TAB PO (09:28)
[2021-03-19] MEDS: Aspirin Enteric Coated 81 MG TABLET.DR PO (09:28)
[2021-03-19] MEDS: carvediloL 12.5 MG TABLET 25 MG PO ×2 (09:28→21:26)
[2021-03-19] MEDS: 0.9 % Sodium Chloride Flush 3 ML SYRINGE IVFLUSH ×2 (09:28→14:58)
[2021-03-19] MEDS: FLUoxetine HCl 20 MG CAPSULE 40 MG PO (09:29)
[2021-03-19] MEDS: Folic Acid 1 MG TABLET PO (09:29)
[2021-03-19] MEDS: Losartan Potassium 25 MG TABLET PO ×2 (09:30→21:26)
[2021-03-19] MEDS: OXcarbazepine 150 MG TABLET PO ×3 (09:30→21:26)
[2021-03-19] MEDS: amLODIPine Besylate 10 MG TABLET PO (09:30)
[2021-03-19] MEDS: Thiamine HCL 100 MG TABLET PO (09:30)
--- NOTE | 2021-03-19 10:46 | P.PNNP_ITS ---
Subjective Subjective Date of Service: 03/19/21 Principal diagnosis: hypoNa, HTN, MAI Interval history: Events noted Started on Losartan 03/18/20 Physical Exam Vital Signs: Vital Signs: Last Vital Signs Temp 97.6 F 03/19/21 07:26 Pulse 80 03/19/21 07:26 Resp 18 03/19/21 07:26 BP 178/92 H 03/19/21 07:26 Pulse Ox 96 03/19/21 07:26 BMI result Body Mass Index 20.2 Const: Other: vague but no acute distress General: cooperative and no acute distress Orientation/consciousness: patient oriented x3 HENMT: Other: Unremarkable Eyes: General: appearance normal, both eyes and all related structures Pupils: Equal, round and reactive pupils present Neck: Neck: Yes normal visual inspection and Yes supple Chest: Chest palpation & inspection: normal inspection of the chest Resp: Other: clear to auscultation bilaterally with scant crackles at bases Effort & Inspection: normal respiratory effort Auscultation: clear to auscultation bilaterally and diminished lung sounds Cardio: Other: no S4; positive S1-S2; no S3 murmurs rubs or gallop Palpation: normal PMI Rate: regular rate Rhythm: regular rhythm Heart sounds: S1 normal heart sound present, S2 normal heart sound present, no gallops, no murmurs and no rubs GI: Other: soft nontender nondistended with normoactive bowel sounds Palpation (GI): Soft to palpation and nontender Auscultation: normal bowel sounds Back/Spine/Pelvis: Other: unremarkable Skin: General skin exam: no rashes or lesions noted Lesions: other Neuro: Other: cranial nerves 2-12 grossly intact as tested. Moves all extr emities with equal power General: patient oriented x3 Cranial nerves: Yes Equal, round and reactive pupils present and Yes Other cranial nerve findings present Cognition (Neuro): normal cognition Extrem: Other: no edema bilateral General: Yes normal to inspection, Yes no pedal edema, No edema and Yes other Psych: Mental Status: other Objective Data Labs CBC & Chem 7: 03/14/21 06:46 03/19/21 06:20 Labs: Laboratory Results - last 24 hr 03/19/21 06:20 Sodium 132 L Potassium 4.0 Chloride 99 Carbon Dioxide 27 Anion Gap 10 L BUN 14 Creatinine 1.18 Estim Creat Clear Calc 56.6 Estimated GFR > 60 Random Glucose 90 Calcium 8.4 Microbiology Microbiology Results: Microbiology 03/01/21 13:01 Blood - Venous Blood Culture - Final No growth after 5 days. 03/01/21 13:01 Blood - Venous Blood Culture - Final No growth after 5 days. Procedures Date of Service Date of Service: 03/19/21 Assessment & Plan Assessment and plan (1) Pneumonia: Status: Acute (2) MAI (acute kidney injury): Status: Acute (3) Atherosclerotic cardiovascular disease: Status: Acute Assessment and Plan: 60yo M with hx EtOH abuse admitted for hypoNa, hypoK, and EtOH withdrawal Hyponatremia/Hypokalemia- resolved HTN : CTA showed occluded left Renal artery with atrophic left kidney. Right RA - patent Renin was elevated Suggestive of RVH DC Aldactone Trial of Losartan 25 mg BID and watch Creatinine - started n 03/18/21 Needs renal angiogram - I will arrange as outpatient after discharge MAI Probably due to hypotension Improving Avoid hypotension Cr back to baseline with IVF Mild hyponatremia Restrict free water Time Spent With Patient Time: Total time spent is greater than 50% in coordination of care (as documented) at patient's floor/unit and/or counseling patient: Time with patient: 15 - 24 minutes Progress Note: Quality Stroke Does the patient have a stroke diagnosis?: No
--- NOTE | 2021-03-19 13:18 | MHC.CM.PN ---
Patient has been accepted at [facility] for STR, that may turn into LTC. [facility] will have a bed tomorrow. MDS completed.CM will follow.
--- NOTE | 2021-03-19 15:42 | P.PNIM_ITS ---
Subjective Subjective Date of Service: 03/19/21 Interval History: Offers no acute complaints resting comfortably in bed, denies fever chills, no nausea no vomiting tolerating diet, seen by Physical therapy and noted to have increased tolerance to activity. Physical Exam Vital Signs: Vital Signs: Last Vital Signs Temp 97.6 F 03/19/21 15:31 Pulse 78 03/19/21 15:31 Resp 18 03/19/21 15:31 BP 168/64 H 03/19/21 15:31 Pulse Ox 97 03/19/21 15:31 BMI result Body Mass Index 20.2 Gen:? Awake alert, in no acute distress Neck: supple, no JVD Lungs: clear to auscultation bilaterally Heart: regular rate and rhythm, no murmurs Abd: soft, non-tender, non-distended, bowel sounds audible Ext: no edema Skin: warm/well-perfused Neuro: alert and oriented x3, no focal findings Psych: appropriate affect ? Objective Data Active Medications Acetaminophen (Acetaminophen 325 Mg Tablet) 650 mg PO Q6H PRN PRN Reason: Pain, Mild (Pain Scale 1-3) Last Admin: 03/17/21 09:54 Dose: 650 mg Documented by: CASSIE Albuterol Sulfate (Albuterol Sulfate 90 Mcg 8 Gm Inhaler) 2 puff INHALE Q4H PRN PRN Reason: Shortness Of Breath Last Admin: 03/17/21 21:13 Dose: 2 puff Documented by: MARCO A Amlodipine Besylate (Amlodipine Besylate 10 Mg Tablet) 10 mg PO DAILY [facility]; Protocol Last Admin: 03/19/21 09:30 Dose: 10 mg Documented by: COURTNEY Aspirin (Aspirin Enteric Coated 81 Mg Tablet.) 81 mg PO DAILY [facility] Last Admin: 03/19/21 09:28 Dose: 81 mg Documented by: COURTNEY Atorvastatin Calcium (Atorvastatin Calcium 40 Mg Tablet) 40 mg PO BEDTIME [facility] Last Admin: 03/18/21 20:51 Dose: 40 mg Documented by: MARKUS Carvedilol (Carvedilol 12.5 Mg Tablet) 25 mg PO BID [facility]; Protocol Last Admin: 03/19/21 09:28 Dose: 25 mg Documented by: COURTNEY Docusate Sodium (Docusate Sodium 100 Mg Capsule) 100 mg PO DAILY PRN PRN Reason: Constipation Last Admin: 03/05/21 08:33 Dose: 100 mg Documented by: BI Enoxaparin Sodium (Enoxaparin Sodium 40 Mg/0.4 Ml Syringe) 40 mg SUBCUT Q24H [facility] Last Admin: 03/18/21 22:44 Dose: 40 mg Documented by: MARKUS Fluoxetine HCl (Fluoxetine Hcl 20 Mg Capsule) 40 mg PO DAILY [facility] Last Admin: 03/19/21 09:29 Dose: 40 mg Documented by: COURTNEY Folic Acid (Folic Acid 1 Mg Tablet) 1 mg PO DAILY [facility] Last Admin: 03/19/21 09:29 Dose: 1 mg Documented by: COURTNEY Labetalol HCl (Labetalol Hcl 100 Mg/20 Ml Vial) 20 mg IVPUSH Q20M PRN PRN Reason: SBP > 160 Last Admin: 03/04/21 06:39 Dose: 20 mg Documented by: ORLANDO Losartan Potassium (Losartan Potassium 25 Mg Tablet) 25 mg PO BID [facility]; Protocol Last Admin: 03/19/21 09:30 Dose: 25 mg Documented by: COURTNEY Melatonin (Melatonin 3 Mg Tablet) 6 mg PO BEDTIME PRN PRN Reason: Insomnia Last Admin: 03/17/21 21:08 Dose: 6 mg Documented by: MARCO A Multivitamins/Vitamin C (Multivitamin Tablet) 1 tab PO DAILY [facility] Last Admin: 03/19/21 09:28 Dose: 1 tab Documented by: COURTNEY Ondansetron HCl (Ondansetron Hcl 4 Mg/2 Ml Vial) 4 mg IVPUSH Q8H PRN PRN Reason: Nausea and Vomiting Oxcarbazepine (Oxcarbazepine 150 Mg Tablet) 150 mg PO TID [facility] Last Admin: 03/19/21 14:58 Dose: 150 mg Documented by: COURTNEY Pharmacy Consult (Consult Rx Perform Med Rec) 1 each MISCELLANE ONCE PRN PRN Reason: Consult order Sodium Chloride (0.9 % Sodium Chloride Flush 3 Ml Syringe) 3 ml IVFLUSH QSHIFT [facility] Last Admin: 03/19/21 14:58 Dose: 3 ml Documented by: COURTNEY Thiamine HCl (Thiamine Hcl 100 Mg Tablet) 100 mg PO DAILY [facility] Last Admin: 03/19/21 09:30 Dose: 100 mg Documented by: COURTNEY Labs CBC & Chem 7: 03/14/21 06:46 03/19/21 06:20 Labs: Laboratory Results - last 24 hr 03/19/21 06:20 Anion Gap 10 L Estim Creat Clear Calc 56.6 Estimated GFR > 60 Random Glucose 90 Calcium 8.4 Assessment and Plan (1) HENNY (renal artery stenosis): Status: Acute (2) Hyponatremia: Status: Acute (3) Acute hypokalemia: Status: Acute (4) H/O ETOH abuse: Status: Acute Assessment and Plan: 60yo M with hx EtOH abuse admitted for hypoNa, hypoK, and EtOH withdrawal # hypoNa - Na improved to 132 with fluid restriction, consider change in psych meds as outpt [on fluoxetine + oxcarbazepine and the latter is particularly notorious for hypoNa that seems chronic # hypoK - repleted # HTN/left renal artery stenosis CTA showed occluded left Renal artery with atrophic left kidney. Right RA - patent ,Renin was elevated,suggestive of RVH - BP noted to be elevated, on amlodipine + carvedilol + spironolactone, therefore started on losartan 25 mg b.i.d. and spironolactone discontinued, BP remains elevated ? Case discussed with Nephrology they recommend to follow renal function on above medication and they will arrange for outpatient angiogram # EtOH withdrawal - phenobarbital taper completed, continue B vitamins # coronary artery disease, echo showed slight LV dysfunction, inferior inferior lateral hypokinesis and basal inferior akinesis seen by Cardiology they recommend aspirin statins and Coreg and due to lack of compliance will hold ?? off ischemia workup at this time, elevated cardiac BNP likely due to LV dysfunction and uncontrolled hypertension. # VTE ppx - [facility] # dispo - social work supervisor arranging for safe discharge. Strongly recommend to ambulate t.i.d. with staff. Quality Stroke Does the patient have a stroke diagnosis?: No VTE Prior VTE?: No VTE Risk Level:: Medical - moderate - high VTE Device Contraindication: Treatment Not Indicated VTE Drug Contraindication: N/A - Med Ordered
[2021-03-19] MEDS: Atorvastatin Calcium 40 MG TABLET PO (21:26)
[2021-03-19] MEDS: Enoxaparin Sodium 40 MG/0.4 ML SYRINGE SUBCUT (21:26)
[2021-03-20] MEDS: 0.9 % Sodium Chloride Flush 3 ML SYRINGE IVFLUSH (02:16)
[2021-03-20 04:00] VITALS: BP 161/67; PULSE 77; RESP 20; TEMP 37.2; O2SAT 96
[2021-03-20 07:46] VITALS: BP 162/94; PULSE 75; RESP 16; TEMP 36.4; O2SAT 97
[2021-03-20] MEDS: amLODIPine Besylate 10 MG TABLET PO (09:26)
[2021-03-20] MEDS: Multivitamin TABLET 1 TAB PO (09:26)
[2021-03-20] MEDS: Losartan Potassium 25 MG TABLET PO (09:26)
[2021-03-20] MEDS: Thiamine HCL 100 MG TABLET PO (09:26)
[2021-03-20] MEDS: FLUoxetine HCl 20 MG CAPSULE 40 MG PO (09:26)
[2021-03-20] MEDS: Folic Acid 1 MG TABLET PO (09:27)
[2021-03-20] MEDS: OXcarbazepine 150 MG TABLET PO (09:27)
[2021-03-20] MEDS: Aspirin Enteric Coated 81 MG TABLET.DR PO (09:27)
[2021-03-20] MEDS: carvediloL 12.5 MG TABLET 25 MG PO (09:27)
--- NOTE | 2021-03-20 11:26 | MHC.CM.PN ---
Patient has been medically cleared for dc to STR/SNF today. Patient will dc to [facility] today at 2 PM, via [facility].
[2021-03-20 11:40] VITALS: BP 142/88; PULSE 74; RESP 16; TEMP 36.8; O2SAT 95
--- NOTE | 2021-03-20 11:48 | P.DS_ITS ---
DS: Providers Provider Date of Service: 03/20/21 Date of admission: 03/01/21 21:12 Primary care physician: Sabrina Ansari MD Consults: 03/01/21 21:17 Consult to Nephrology Routine Consulting Provider: [facility] Reason for consultation: Hyponatremia Has provider been notified: Yes 03/02/21 06:12 Consult to Cardiology Routine Consulting Provider: Rory Askew Reason for consultation: CHF? Has provider been notified: No DS: Diagnosis Discharge Diagnosis (1) Pneumonia: Status: Acute (2) MAI (acute kidney injury): Status: Acute (3) Atherosclerotic cardiovascular disease: Status: Acute DS: Summary Hospital Course Hospital Course: HISTORY OF PRESENT ILLNESS Chief Complaint: Abdominal pain This is a 60 year male with past medical history of alcohol abuse, COPD, depression, hepatitis-C cough who was recently discharged from the hospital on 01/29 for severe hyponatremia related to alcohol use in [facility] presents to the hospital with complaints of lower abdominal pain.? On my interview patient is alert, awake, oriented but not giving good history.? It is unclear who called EMS, want time he says he called EMS the other time he says his brother called EMS, when asked where he lives he says he lives with his friends but then says that he is homeless, it is unclear why he called EMS or called EMS at this time but patient reports lower abdominal pain in the suprapubic region with no urinary symptoms including no frequency urgency dysuria, he reports no diarrhea, no nausea or vomiting, he denies any chest pain, no shortness of breath, he does report alcohol abuse and reports that he drank in the a.m. of day of presentation. On arrival to the ED patient hemodynamically stable with elevated blood pressure with a systolic of 209/118, Initial labs are significant for WBC count 10.5, sodium level of 115 (was 131 on 01/26) potassium of 2.1, chloride of 65, bicarb of 33, osmolality of 244, lactic acid of 3.4, troponin of 62 repeat of 60.4, BNP of 1564, Abdomen pelvic CT shows diverticulosis without at evidence of diverticulitis, calcification severe stenosis of the left renal artery resulting in chronic atrophy of the left kidney with no other abnormality in the abdominal CT Chest CT shows no PE, moderate right and small left pleural effusion and accompanying atelectasis, some patchy reticular and ground-glass opacities within the left upper and lower lobe suspicious for focal areas of pneumonitis Discharge summary 60yo M with hx EtOH abuse admitted for hypoNa, hypoK, elevated blood pressure with left renal artery stenosis and EtOH withdrawal In regard to hyponatremia sodium improved to 132 with fluid restriction patient is on fluoxetine and oxcarbazepine pt they both can cause hyponatremia, dose of fluoxetine reduced to 20 mg daily patient needs to be followed closely by primary care physician and Nephrology for close monitoring of sodium patient is being discharged with a 1200 mL fluid restriction. Hypokalemia repleted and improved Patient noted to have significantly elevated blood pressures CT abdomen showed left renal artery stenosis with atrophic left kidney, right renal artery was patent, renin is elevated patient has been placed on amlodipine, Coreg and losartan 25 mg b.i.d. noted to have few high blood pressure readings case discus sed with Nephrology they want to continue current regimen and 1 to avoid hypotension patient will be followed closely by Nephrology and They will arrange for outpatient renal angiogram. In regard to alcohol withdrawal patient treated with phenobarb and has been strongly advised to abstain from alcohol Echocardiogram showed slight LV dysfunction, inferior lateral hypokinesis and basal inferior akinesis seen by Cardiology they recommend aspirin, statins and Coreg and due to lack of compliance they will arrange for outpatient Ischemic workup, elevated cardiac BNP likely due to LV dysfunction and uncontrolled hypertension. Patient is being discharged to rehab facility for less than 30 days Time Spent with Patient Time attestation: Total time spent providing and/or coordinating discharge services: Discharge coordination time: Greater than 30 minutes Quality: Stroke Does the patient have a stroke diagnosis?: No Physical Exam Vital Signs: Vital Signs: Last Vital Signs Temp 98.3 F 03/20/21 11:40 Pulse 74 03/20/21 11:40 Resp 16 03/20/21 11:40 BP 142/88 H 03/20/21 11:40 Pulse Ox 95 03/20/21 11:40 BMI result Body Mass Index 20.2 Gen:? Awake alert, in no acute distress Neck: supple, no JVD Lungs: clear to auscultation bilaterally Heart: regular rate and rhythm, no murmurs Abd: soft, non-tender, non-distended, bowel sounds audible Ext: no edema Skin: warm/well-perfused Neuro: alert and oriented x3, no focal findings Psych: appropriate affect DS: Data Data Completed and Pending Completed studies during hospitalization [Text1]: Procedures Detoxification Services for Substance Abuse Treatment (01/22/21) Discharge Plan Discharge Patient Disposition: er [facility] Discharge Diagnosis: Hyponatremia Hypokalemia Alcohol abuse and withdrawal Hypertension Left renal artery stenosis Coronary artery disease Referrals: [facility] [Outside] - 1 Week Physician,Justice J [Physician] - 1 Week Discharge Medications: New carvedilol 12.5 mg Tablet 25 mg PO BID Qty: 60 RF: 0 amlodipine 10 mg Tablet 10 mg PO DAILY Qty: 30 RF: 0 atorvastatin [Lipitor] 20 mg tablet 20 mg PO BEDTIME Qty: 30 RF: 0 losartan 25 mg Tablet 25 mg PO BID Qty: 60 RF: 0 Continued thiamine HCl (vitamin B1) [Vitamin B-1] 100 mg tablet 1 tab PO DAILY RF: 0 multivitamin Tablet 1 tab PO DAILY RF: 0 albuterol sulfate [ProAir HFA] 90 mcg/actuation HFA aerosol inhaler 2 puff PO Q4H PRN (Reason: Shortness Of Breath) RF: 0 oxcarbazepine 150 mg Tablet 150 mg PO TID RF: 0 folic acid 1 mg Tablet 1 mg PO DAILY RF: 0 aspirin 81 mg tablet,delayed release (DR/EC) 1 tab PO DAILY RF: 0 Changed fluoxetine 20 mg Tablet 20 mg PO DAILY Qty: 0 RF: 0 Discontinued metoprolol succinate 50 mg Tablet Extended Release 24 Hr 50 mg PO DAILY Qty: 30 RF: 0 Discharge Orders: Discharge Order (Routine); Ordered 03/20/21 Ordered By: Dl Armstrong Diet: low fat, low cholesterol Activity on Discharge: As tolerated Stand Alone Forms: Patient Portal Discharge page Care Plan Goals: Alcohol abuse and withdrawal patient has been strongly recommended to abstain from alcohol finish phenobarb protocol Noted to have hypokalemia and hyponatremia, potassium normalized, sodium 132 recommend 1.5 L fluid restriction Renal artery stenosis with hypertension continue current blood pressure medication will have close follow-up with Nephrology Dr. Norris Coronary artery disease continue current medication and outpatient follow-up with Cardiology BEING DISCHARGED TO REHAB FOR LESS THAN 30 DAYS Health Concerns: Alcohol abuse/depression/coronary artery disease/hyponatremia/hypertension Plan of Treatment: Outpatient follow-up with Cardiology Dr. Askew in 2-4 weeks Assessment: As per discharge plan
[2021-03-20 12:02] LABS: IDNOW Serial# 9DD0AD1C
[2021-03-20 12:03] LABS: COVID-19 Test Positive (Negative)
--- NOTE | 2021-03-20 12:54 | MHC.CM.PN ---
Patient has tested (+) for Covid. Patient will dc to a [place] [facility] of [facility] (where he originally was going) [facility] today at 2 PM, via [facility]. Per RN, Patient is aware of and in agreement with the dc plan
== END 2021-03-20 14:24 | disposition skilled nursing facility (03) | DRG 139 ==
LOC: HO.ED 14:08 → HO.EDOVER 21:17 → HO.IMC 03-04 21:36
PROVIDERS: Family Medicine; Hospitalist; Internal Medicine Nephrology; Physician Assistant Medical; Admitting Provider Internal Medicine; Emergency Provider Emergency Medicine; PCP Student in an Organized Health Care Education/Training Program; Visit Provider Hospitalist
DX: J18.9 Pneumonia, unspecified organism (principal); U07.1 COVID-19; N17.9 Acute kidney failure, unspecified; E87.0 Hyperosmolality and hypernatremia; E87.1 Hypo-osmolality and hyponatremia; E87.2 Acidosis; I50.9 Heart failure, unspecified; I16.0 Hypertensive urgency; I70.1 Atherosclerosis of renal artery; I10 Essential (primary) hypertension; F32.A Depression, unspecified; F10.139 Alcohol abuse with withdrawal, unspecified; I25.10 Atherosclerotic heart disease of native coronary artery without angina pectoris; T43.225A Adverse effect of selective serotonin reuptake inhibitors, initial encounter; Y92.9 Unspecified place or not applicable; F17.210 Nicotine dependence, cigarettes, uncomplicated; Z71.6 Tobacco abuse counseling; Z59.02 Unsheltered homelessness; Z91.14 Patient's other noncompliance with medication regimen; Z88.5 Allergy status to narcotic agent; Z88.6 Allergy status to analgesic agent; Z79.82 Long term (current) use of aspirin; Z79.899 Other long term (current) drug therapy
CPT/HCPCS: 36415; 70450; 71275; 72125; 73552; 74175; 74177; 80048; 80051; 80053; 80307; 81001; 81003; 82077; 82088; 82550; 82728; 82803; 83540; 83605; 83690; 83735; 83880; 83930; 83935; 84300; 84484; 84550; 85025; 85610; 87040; 87635; 89190; 93005; 93306; 94640; 96361; 96365; 96366; 96367; 96375; 96376; 97116; 97162; 97530; 99285; 99291; 99292; J0456; J0696; J1200; J1650; J2405; J2916; J3411; Q9967

== ENCOUNTER 2022-04-14 17:17 | Emergency (ER) | payer MEDICAID, SELFPAY ==
--- NOTE | ~2022-04-14 | CT_ITS ---
EXAMINATION: CT CERVICAL SPINE AND CT FACIAL BONES. CHEST X-RAY. CLINICAL INFORMATION: Neck discomfort status post fall. COMPARISON: None TECHNIQUE: Chest one view. 3 mm thin axial and reformatted 2 mm thin sagittal and coronal images of cervical spine were obtained. Subsequently axial 3 mm thin and reformatted 1.5 mm thin sagittal and coronal images of facial bones were obtained. DLP 625. This CT examination was performed using dose optimization technique as appropriate, variously including the following: Automated exposure control Adjustment of MA and/or KV according to patient size(this includes techniques or standardized protocols for targeted exams where dose is matched to indication/reason for exam; extremities or head. Use of iterative reconstruction techniques. FINDINGS: Chest x-ray: The lungs are well-expanded and clear. The heart size and pulmonary vascularity is normal. No gross bony abnormality seen. Cervical spine: There is mild straightening of cervical lordosis. The vertebral heights, alignment and disc heights are normal. There is no visible acute fracture, dislocation or subluxation seen. There is posterior cervical spondylosis with bilateral uncovertebral hypertrophic changes at C2-C3, C3-C4 C5-C6 disc levels. There is moderate right C5-C6 neural foraminal narrowing. The craniovertebral junction and the C1-C2 alignment is normal. The prevertebral and paravertebral soft tissues are normal. There is mild bullous changes bilateral lung apices. The thyroid lobes are symmetrical and normal. Facial bones: There is normal aeration of bilateral paranasal sinuses with mild mucoperiosteal thickening bilateral frontal sinuses. The bony sinus kearns, lamina papyracea and the cribriform plate appears normal. Mild deviation nasal septum to the right with jenny bullosa of right middle turbinate is noted. The bony orbits, optic globe and optic nose normal. There is a nondisplaced fracture right nasal bone with minimal soft tissue swelling. Bilateral TM joints and the mandible is intact. The mastoid sinuses are clear. The parapharyngeal soft tissues are prevertebral soft tissues and visualized upper cervical spine appears unremarkable. The craniovertebral junction and the C1-C2 alignment is normal. There is minimal ventral and posterior cervical spondylosis C3-C4 disc level. CT/CT cervical spine wo IV con IMPRESSION: Unremarkable chest x-ray. No visible acute fracture or dislocation seen in the cervical spine. There is ventral and posterior spondylosis throughout cervical spine with large bridging osteophyte or calcification anterior longitudinal ligament from C4 through C7 vertebra. There is a nondisplaced right nasal fracture with mild soft tissue swelling. No additional maxillofacial or mandibular fractures seen. There is preexistent mucoperiosteal thickening of bilateral frontal sinuses.
--- NOTE | ~2022-04-14 | CT_ITS ---
EXAMINATION: CT HEAD WITHOUT CONTRAST (STROKE PROTOCOL) CLINICAL INFORMATION: Stroke protocol. COMPARISON: 03/01/[address] scan. TECHNIQUE: Contiguous axial imaging was performed from the skull base to vertex without intravenous administration of contrast. Coronal and sagittal reformatted images were obtained. This CT examination was performed using dose optimization techniques as appropriate, variously including the following: *Automated exposure control *Adjustment of mA and/or kV according to patient size (this includes techniques or standardized protocols for targeted exams where dose is matched to indication/reason for exam; i.e. extremities or head) *Use of iterative reconstruction technique DLP: 750 mGy-cm FINDINGS: There is mild widening of the cortical sulci and associated ventriculomegaly. The lateral ventricles are symmetrical. Mild periventricular microvascular changes are seen. The third and fourth ventricles are in their normal midline position. The basilar and prepontine cisterns are unremarkable. A right anterior middle cranial fossa arachnoid cyst is again seen without significant change. There is no acute intra or extracerebral abnormality. There is no mass effect or midline shift. Sections through the bony calvarium are unremarkable. The orbits are intact. The paranasal sinuses are clear. The mastoid air cells are clear. Mild posterior nasal septal deviation, apex of the right without significant change. CT/CT head for stroke IMPRESSION: No acute intracranial pathology.
[2022-04-14 17:43] VITALS: BP 128/78; PULSE 69; PULSE 71; RESP 16; TEMP 36.7; O2SAT 97; O2SAT 98; BMI 25.8
[2022-04-14 17:58] VITALS: BP 191/106; PULSE 79; RESP 15; O2SAT 99
--- NOTE | 2022-04-14 18:00 | PC.NURSE ---
pt resting on stretcher, pt denies any pain at this time, reports drinking multiple drinks today (see triage note). Pt states he hit his head but does not remember anything else. Blood pressure is elevated, PA aware
[2022-04-14 18:11] LABS: MANUAL DIFF FLAG NO
--- NOTE | 2022-04-14 18:15 | ED.FALL ---
HPI - Fall General Chief Complaint: Fall Stated Complaint: ETOH USE,FACIAL LAC PER EMS Source: patient and EMS Mode of arrival: EMS Limitations: other (Intoxicated) History of Present Illness HPI Narrative: This is a 61-year-old male history of renal artery stenosis, hyponatremia, heart disease, seizure disorder, hepatitis-C, arachnoid cyst, cerebral microvascular disease, COPD, alcoholism presenting to the emergency department status post unwitnessed fall, patient was brought in by EMS, patient has an abrasion to his nose, according to EMS patient reports that he lost consciousness when he fell, patient takes daily aspirin however no other blood thinners. Drank three nattys and five nips. He reports that this was strictly mechanical trip and fall. No preceding symptoms. Patient extremely intoxicated, not answering questions appropriately unable to obtain an accurate HPI or review of systems. When I asked him if he has chest pain or shortness of breath he says no. Related Data Home Medications Medication Instructions Recorded Confirmed thiamine HCl (vitamin B1) 100 mg 1 tab PO DAILY 09/20/20 03/01/21 tablet (Vitamin B-1) albuterol sulfate 90 mcg/actuation 2 puff PO Q4H PRN Shortness Of 12/16/20 03/01/21 aerosol inhaler (ProAir HFA) Breath multivitamin 1 tab PO DAILY 12/16/20 03/01/21 aspirin 81 mg tablet,delayed 1 tab PO DAILY 01/22/21 03/01/21 release folic acid 1 mg tablet 1 mg PO DAILY 03/01/21 03/01/21 oxcarbazepine 150 mg tablet 150 mg PO TID 03/01/21 03/01/21 Previous Rx's Medication Instructions Recorded amlodipine 10 mg tablet 10 mg PO DAILY #30 tabs 03/20/21 atorvastatin 20 mg tablet (Lipitor) 20 mg PO BEDTIME #30 tabs 03/20/21 carvedilol 12.5 mg tablet 25 mg PO BID #60 tabs 03/20/21 fluoxetine 20 mg tablet 20 mg PO DAILY #0 tabs 03/20/21 losartan 25 mg tablet 25 mg PO BID #60 tabs 03/20/21 Allergies Allergy/AdvReac Type Severity Reaction Status Date / Time acetaminophen [From PERCOCET] Allergy Mild Rash Verified 09/21/20 17:29 oxycodone [From PERCOCET] Allergy Mild Rash Verified 09/21/20 17:29 Penicillins [PENICILLINS] Allergy Mild Rash Verified 09/21/20 17:29 Review of Systems Review of Systems: Constitutional : No Weight loss, No Fever, No Chills, No Fatigue, No Malaise ENT/Mouth : No sore throat, No Rhinorrhea Eyes: No Eye Pain, No Swelling, No Redness Cardiovascular : No Chest Pain, No SOB, No Dyspnea on Exertion, No Orthopnea, No Edema, No Palpitations Respiratory : No Cough, No Sputum, No Wheezing Gastrointestinal : No Nausea, No Vomiting, No Diarrhea, No Constipation, No abdominal Pain, No Hematochezia, No Melena Genitourinary : No Dysuria, No Urinary Frequency, No Hematuria, Musculoskeletal : No joint pain, No Myalgias, No Joint Swelling Skin : No Skin Lesions, No rash, + abrasion Neuro : No Weakness, No Numbness, No Dizziness, No Headache Psych : No Anxiety/Panic, No Depression All other systems reviewed and are negative Yes all other systems are reviewed and are negative [facility] Past Medical History Attestation statement: The following information was validated with the patient. Source: old records reviewed and nursing notes reviewed Medical History Acute hypokalemia Acute hyponatremia Anemia Arachnoid cyst Cerebral microvascular disease COPD (chronic obstructive pulmonary disease) H/O ETOH abuse HCV (hepatitis C virus) Heart disease Hypertension Seizure disorder Surgical History H/O left wrist surgery Social History Social History Household Members: None Household Members Other:: Brother Housing: Homeless Do you presently have visiting nurse or other home services: No Alcohol intake: current Alcohol intake frequency: 3 or more drinks per day Alcohol type: beer Patient Tobacco Use Status: Current everyday Tobacco user Tobacco use type: Cigarette Cigarette Packs Per Day: 0.5 Cigarettes Per Day: 10 Second Hand Smoke Exposure: No Advance Directives: No Advance Directives Information Provided: No service: No Current occupational status: unemployed Physical Exam Vital Signs: Vital Signs: Last Vital Signs Temp 98.1 F 04/14/22 17:43 Pulse 70 04/14/22 20:01 Resp 17 04/14/22 20:01 BP 148/92 H 04/14/22 20:01 Pulse Ox 98 04/14/22 20:01 O2 Del Method 04/14/22 20:01 BMI result Body Mass Index 25.8 vss Appearance: Alert.? Oriented X3.? No acute distress.?Smells like alcohol Head: Normocephalic, atraumatic, no step-offs or deformities. + abrasion to nose w/ swelling to right side of nose no nasal septal hematoma . Eyes: Pupils equal, round and reactive to light.?EOMI pain free ENT: Pharynx normal.? Neck: Normal inspection.? Neck supple.? CVS: Normal heart rate and rhythm.? Pulses normal.? Respiratory: No respiratory distress.? Breath sounds normal.? Abdomen: Soft and nontender.? Skin: Skin warm and dry.? Normal skin color.? Normal skin turgor.? Extremities: No lower extremity edema.? No calf ttp. 4/5 strength to bilateral upper and lower extremities Neuro: Oriented X 3.? No motor deficit.? No sensory deficit. CN 2-12 intact. Ambulating with steady gait normal coordination. Course Reevaluation(s) Reevaluation #1: CBC with elevated hemoglobin and hematocrit likely hemoconcentration secondary to poor p.o. intake/dehydration. Chemistry with no acute electrolyte abnormalities requiring intervention. Transaminases elevated however there is no abdominal tenderness to palpation no need for further imaging at this time. Urine toxicology negative. Ethanol level 273. Patient's blood pressure improved after p.o. medications at 148/98, no signs of hypertensive urgency or emergency. CT of the head without any signs of stroke or hemorrhage. Cervical spine with no fractures, dislocation or traumatic subluxations. Facial CT does show a nasal fracture, nothing to be done acutely about this will give him ENT follow-up. Chest x-ray unremarkable. EKG will be obtained. Patient is ambulatory with steady gait with normal coordination. Patient requesting to leave the department. Time: 19:55 Reevaluation #2: Patient feeling well no chest pain no shortness of breath. I suspect fall was secondary to alcohol intoxication plus mechanical trauma. EKG unremarkable. Educated patient on diagnosis and treatment plan, answered all question, patient verbalizes understanding. At this time patient will be discharged home, advised to return with new or worsening symptoms. Educated on worrisome signs and symptoms and when to return. At this time I feel comfortable discharge home. Time: 20:19 Medications Administered Discontinued Medications Generic Name Dose Route Start Last Admin Trade Name Debbie PRN Reason Stop Dose Admin Amlodipine Besylate 10 mg 04/14/22 18:46 04/14/22 19:21 Amlodipine Besylate 10 Mg Tablet PO 04/14/22 18:47 10 mg ONCE ONE Administration Protocol Losartan Potassium 25 mg 04/14/22 18:47 04/14/22 19:22 Losartan Potassium 25 Mg Tablet PO 04/14/22 18:48 25 mg ONCE ONE Administration Protocol Medical Decision Making Medical Decision Making [facility] Narrative: 1818 61-year-old male presents status post fall and alcohol intoxication with head strike and loss of consciousness. On aspirin no other blood thinners. Physical examination patient smells like alcohol and has an abrasion to nose. Neuro nonfocal. Concerns for possible intracranial hemorrhage saw stroke due to mechanism of injury, and alcohol intoxication. Will rule out electrolyte abnormalities. Patient denied preceding symptoms unlikely ACS or PE. Plan medical clearance and offer patient detox. Differential Diagnosis Differential Diagnoses: The differential diagnosis associated with the presentation includes Concerns for possible intracranial hemorrhage saw stroke due to mechanism of injury, and alcohol intoxication. Will rule out electrolyte abnormalities. Patient denied preceding symptoms unlikely ACS or PE. Admission/Observation Consideration of admission/observation: Escalation of care including admission/observation considered Lab Data [facility] Lab Attestation statement: I reviewed the patient's lab results. 04/14/22 17:57 04/14/22 17:57 Labs: Lab Results 04/14/22 04/14/22 04/14/22 Range/Units 17:51 17:57 17:57 WBC 7.4 (4.8-10.8) X10*3/uL RBC 3.88 L D (4.60-5.80) X10*6/uL Hgb 13.6 L D (14.0-18.0) g/dl Hct 38.0 L D (42.0-52.0) % MCV 97.9 (80.0-98.0) fL MCH 35.1 H (27.0-33.0) pg MCHC 35.8 (31.0-36.0) g/dl RDW 14.2 (11.0-16.0) % Plt Count 183 D (160-400) X10*3/uL MPV 9.4 (9.4-12.4) fL Immature Gran % (Auto) 0.7 H (0.0-0.4) % Neut % (Auto) 53.9 (45-73) % Lymph % (Auto) 25.4 (20-40) % [place] % (Auto) 14.1 H (2-11) % Eos % (Auto) 4.1 H (0-4) % Baso % (Auto) 1.8 (0-2) % Lymph # (Auto) 1.9 (1.2-4.9) X10*3/uL [place] # (Auto) 1.0 (0.1-1.2) X10*3/uL Eos # (Auto) 0.3 (0.0-0.4) X10*3/uL Baso # (Auto) 0.1 (0.0-0.2) X10*3/uL Abs Immat Gran (auto) 0.05 H (0.00-0.03) X10*3/uL Absolute Neuts (auto) 4.0 (2.0-8.3) x10*3/uL Absolute Nucleated RBC 0.000 (0.0-0.012) X10*3/uL Nucleated RBC % (auto) 0.0 (0.0-0.2) /100WBC PT 9.0 L (10.0-13.1) SEC INR 0.8 L (0.9-1.1) Sodium (135-145) mmol/L Potassium (3.3-5.1) mmol/L Chloride (96-108) mmol/L Carbon Dioxide (22-29) mmol/L Anion Gap (12-20) BUN (9-16) mg/dL Creatinine (0.5-1.4) mg/dL Estim Creat Clear Calc Estimated GFR Random Glucose (60-115) mg/dL Calcium (8.4-10.2) mg/dL Magnesium (1.6-2.6) mg/dL Total Bilirubin (0.0-1.0) mg/dL AST (5-37) U/L ALT (0-40) U/L Alkaline Phosphatase (39-117) U/L Total Protein (6.5-8.0) g/dL Albumin (3.5-5.0) g/dL Urine Color Yellow Urine Appearance Clear Urine pH 7.0 (5.0-9.0) Ur Specific [place] 1.010 (1.005-1.025) Urine Protein 300 (3+) H (Neg-Trace) mg/dL Urine Glucose (UA) Negative (Negative) mg/dL Urine Ketones Negative (Negative) mg/dL Urine Blood Small (1+) H (Negative) Urine Nitrite Negative (Negative) Ur Leukocyte Esterase Negative (Negative) Urine RBC 0-2 (0-2) /HPF Urine WBC 0-5 (0-5) /HPF Ur Squamous Epith Cells 0-2 (0-2) /HPF Urine Bacteria Trace (None Seen) Hyaline Casts 0-2 (0-2) /LPF Urine Opiates Screen (Not Detect) Urine Fentanyl Screen (Not Detect) Ur Barbiturates Screen (Not Detect) Ur Phencyclidine Scrn (Not Detect) Ur Amphetamines Screen (Not Detect) U Benzodiazepines Scrn (Not Detect) Urine Cocaine Screen (Not Detect) U Marijuana (THC) Screen (Not Detect) Ethyl Alcohol mg/dL 04/14/22 04/14/22 Range/Units 17:57 17:57 WBC (4.8-10.8) X10*3/uL RBC (4.60-5.80) X10*6/uL Hgb (14.0-18.0) g/dl Hct (42.0-52.0) % MCV (80.0-98.0) fL MCH (27.0-33.0) pg MCHC (31.0-36.0) g/dl RDW (11.0-16.0) % Plt Count (160-400) X10*3/uL MPV (9.4-12.4) fL Immature Gran % (Auto) (0.0-0.4) % Neut % (Auto) (45-73) % Lymph % (Auto) (20-40) % [place] % (Auto) (2-11) % Eos % (Auto) (0-4) % Baso % (Auto) (0-2) % Lymph # (Auto) (1.2-4.9) X10*3/uL [place] # (Auto) (0.1-1.2) X10*3/uL Eos # (Auto) (0.0-0.4) X10*3/uL Baso # (Auto) (0.0-0.2) X10*3/uL Abs Immat Gran (auto) (0.00-0.03) X10*3/uL Absolute Neuts (auto) (2.0-8.3) x10*3/uL Absolute Nucleated RBC (0.0-0.012) X10*3/uL Nucleated RBC % (auto) (0.0-0.2) /100WBC PT (10.0-13.1) SEC INR (0.9-1.1) Sodium 136 (135-145) mmol/L Potassium 3.4 (3.3-5.1) mmol/L Chloride 92 L (96-108) mmol/L Carbon Dioxide 29 (22-29) mmol/L Anion Gap 18 (12-20) BUN 15 (9-16) mg/dL Creatinine 1.16 (0.5-1.4) mg/dL Estim Creat Clear Calc 64.1 Estimated GFR > 60 Random Glucose 100 (60-115) mg/dL Calcium 9.1 D (8.4-10.2) mg/dL Magnesium 2.0 (1.6-2.6) mg/dL Total Bilirubin 0.5 (0.0-1.0) mg/dL AST 121 H (5-37) U/L ALT 46 H (0-40) U/L Alkaline Phosphatase 137 H (39-117) U/L Total Protein 7.0 (6.5-8.0) g/dL Albumin 3.9 (3.5-5.0) g/dL Urine Color Urine Appearance Urine pH (5.0-9.0) Ur Specific [place] (1.005-1.025) Urine Protein (Neg-Trace) mg/dL Urine Glucose (UA) (Negative) mg/dL Urine Ketones (Negative) mg/dL Urine Blood (Negative) Urine Nitrite (Negative) Ur Leukocyte Esterase (Negative) Urine RBC (0-2) /HPF Urine WBC (0-5) /HPF Ur Squamous Epith Cells (0-2) /HPF Urine Bacteria (None Seen) Hyaline Casts (0-2) /LPF Urine Opiates Screen Not Detected (Not Detect) Urine Fentanyl Screen Not Detected (Not Detect) Ur Barbiturates Screen Not Detected (Not Detect) Ur Phencyclidine Scrn Not Detected (Not Detect) Ur Amphetamines Screen Not Detected (Not Detect) U Benzodiazepines Scrn Not Detected (Not Detect) Urine Cocaine Screen Not Detected (Not Detect) U Marijuana (THC) Screen Not Detected (Not Detect) Ethyl Alcohol 273 mg/dL Independent Interpretation I performed an independent interpretation of an: Plain X-Ray (Unremarkable) and CT Scan (CT of head unremarkable, CT of the cervical spine no acute fractures or dislocation, CT of facial bones with nasal fracture) Radiology Impression Discussion of test interpretation with radiology: I have reviewed the radiologist's reading. Core Measures AMI core measures followed: Yes Measure exclusions: not indicated Critical Care Time Critical Care Time Critical Care Time: No Discharge Plan Discharge Clinical Impression: Fall, Alcohol intoxication, Fracture, nasal Patient Disposition: Home, Self-Care Instructions: Nasal Fracture (ED), Alcohol Intoxication (ED), Fall Prevention (ED) Additional Instructions: Take your medications as prescribed. If you were prescribed antibiotics today, it is important that you take your medication to their entirety, do not skip any doses, do not finish them early. Follow-up with your primary care provider this week. Return to the emergency department with new or worsening symptoms. Such as fevers, chills, chest pain, shortness of breath, nausea, vomiting, dizziness, headache, vision changes, lethargy In case of emergency call 911 CT/CT head for stroke IMPRESSION: No acute intracranial pathology. CT/CT cervical spine & facial bones wo IV con IMPRESSION: Unremarkable chest x-ray. ? No visible acute fracture or dislocation seen in the cervical spine. There is ventral and posterior spondylosis throughout cervical spine with large bridging osteophyte or calcification anterior longitudinal ligament from C4 through C7 vertebra. ? There is a nondisplaced right nasal fracture with mild soft tissue swelling. No additional maxillofacial or mandibular fractures seen. There is preexistent mucoperiosteal thickening of bilateral frontal sinuses.? Prescriptions: No Action thiamine HCl (vitamin B1) [Vitamin B-1] 100 mg tablet 1 tab PO DAILY multivitamin Tablet 1 tab PO DAILY albuterol sulfate [ProAir HFA] 90 mcg/actuation HFA aerosol inhaler 2 puff PO Q4H PRN (Reason: Shortness Of Breath) oxcarbazepine 150 mg Tablet 150 mg PO TID folic acid 1 mg Tablet 1 mg PO DAILY carvedilol 12.5 mg Tablet 25 mg PO BID Qty: 60 0RF Protocol: Hold for SBP/HR < HOLD for SBP < : 90 HOLD for HR < : 60 amlodipine 10 mg Tablet 10 mg PO DAILY Qty: 30 0RF Protocol: Hold for SBP< HOLD for SBP < : 90 atorvastatin [Lipitor] 20 mg tablet 20 mg PO BEDTIME Qty: 30 0RF fluoxetine 20 mg Tablet 20 mg PO DAILY Qty: 0 0RF losartan 25 mg Tablet 25 mg PO BID Qty: 60 0RF Protocol: Hold for SBP< HOLD for SBP < : 90 aspirin 81 mg tablet,delayed release (DR/EC) 1 tab PO DAILY Referrals: Gideon Garza [Physician] - 1 day Sabrina Ansari MD [Primary Care Provider] - 2 days Stand Alone Forms: Work/School Release Interventions: ED Discharge Assessment Last Done: 04/14/22 20:14 Discharge Date/Time: 04/14/22 20:16
[2022-04-14 18:17] LABS: Basophils Absolute Auto 0.1 X10*3/uL (0.0-0.2); Basophils Percent Auto 1.8 % (0-2); Eosinophils Absolute Auto 0.3 X10*3/uL (0.0-0.4); Eosinophils Percent Auto 4.1 % (0-4); Hemoglobin 13.6 g/dl (14.0-18.0); Imm Gran Abs Auto 0.05 X10*3/uL (0.00-0.03); Imm Gran Pct Auto 0.7 % (0.0-0.4); Lymphocytes Absolute Auto 1.9 X10*3/uL (1.2-4.9); Lymphocytes Percent Auto 25.4 % (20-40); Mean Corpuscular HGB Conc 35.8 g/dl (31.0-36.0); Mean Corpuscular Hemoglobin 35.1 pg (27.0-33.0); Mean Corpuscular Volume 97.9 fL (80.0-98.0); Mean Platelet Volume 9.4 fL (9.4-12.4); Monocytes Percent Auto 14.1 % (2-11); Neutrophils Percent Auto 53.9 % (45-73); Platelet Count 183 X10*3/uL (160-400); Red Blood Count 3.88 X10*6/uL (4.60-5.80); Red Cell Distribution Width 14.2 % (11.0-16.0); White Blood Count 7.4 X10*3/uL (4.8-10.8)
[2022-04-14 18:26] LABS: Appearance Urine Clear; Color Urine Yellow; Glucose Urine UA Negative (Negative); Leukocyte Esterase Urine Negative (Negative); Nitrite Urine Negative (Negative); UMIC TRIGGER UACC YES; Urine Blood Small (1+) (Negative); Urine Ketones Negative (Negative); Urine Protein 300 (3+) mg/dL (Neg-Trace)
[2022-04-14 18:28] LABS: Alanine Aminotransferase 46 U/L (0-40); Albumin Level 3.9 g/dL (3.5-5.0); Alkaline Phosphatase 137 U/L (39-117); Amphetamine Screen Urine Not Detected (Not Detect); Anion Gap 18 (12-20); Aspartate Amino Transferase 121 U/L (5-37); Barbiturates, Urine Not Detected (Not Detect); Benzodiazepines Screen Urine Not Detected (Not Detect); Bilirubin Total 0.5 mg/dL (0.0-1.0); Blood Urea Nitrogen 15 mg/dL (9-16); Calcium 9.1 mg/dL (8.4-10.2); Cannabinoid Screen Urine Not Detected (Not Detect); Carbon Dioxide 29 mmol/L (22-29); Chloride 92 mmol/L (96-108); Cocaine Screen Urine Not Detected (Not Detect); Creatinine Clr Calc Pharmacy 64.1; Estimated Glomerular Filt Rate > 60; Ethanol 273 mg/dL; Fentanyl, urine Not Detected (Not Detect); Glucose Random 100 mg/dL (60-115); Opiate Screen Urine Not Detected (Not Detect); Phencyclidine Screen Urine Not Detected (Not Detect); Potassium 3.4 mmol/L (3.3-5.1); Sodium 136 mmol/L (135-145)
[2022-04-14 18:39] LABS: Bacteria Urine Trace (None Seen); Hyaline Casts Urine 0-2 /LPF (0-2); RBC Urine 0-2 /HPF (0-2); Squamous Epithelial Cell Urine 0-2 /HPF (0-2); WBC Urine 0-5 /HPF (0-5)
[2022-04-14 18:47] VITALS: BP 173/105; PULSE 72; RESP 20; O2SAT 97
[2022-04-14 18:52] LABS: INTERNATIONAL NORM RATIO 0.8 (0.9-1.1)
--- NOTE | 2022-04-14 19:15 | PC.NURSE ---
pt sleeping on stretcher at this time, respirations are even and unlabored, no apparent distress
[2022-04-14] MEDS: amLODIPine Besylate 10 MG TABLET PO (19:21)
[2022-04-14] MEDS: Losartan Potassium 25 MG TABLET PO (19:22)
[2022-04-14 19:45] VITALS: BP 148/98; PULSE 74; RESP 14; O2SAT 98
--- NOTE | 2022-04-14 19:48 | PC.NURSE ---
Pt reports he would like to leave, blood pressure looking much better at this time 140s/90s. Pt verbalizes he does not have a ride to go home
--- NOTE | 2022-04-14 19:50 | ECG_ITS ---
Test Reason : CLEARANCE Blood Pressure : / mmHG Vent. Rate : 074 BPM Atrial Rate : 074 BPM P-R Int : 146 ms QRS Dur : 086 ms QT Int : 420 ms P-R-T Axes : 080 028 059 degrees QTc Int : 466 ms Normal sinus rhythm Normal ECG When compared with ECG of 01-MAR-2021 13:11, Premature supraventricular complexes are no longer Present Nonspecific T wave abnormality no longer evident in Lateral leads QT has shortened Referred By: Nichol Mi Electronically Signed By:Robert Choe
[2022-04-14 20:01] VITALS: BP 148/92; PULSE 70; RESP 17; O2SAT 98
--- NOTE | 2022-04-14 20:02 | PC.NURSE ---
EKG completed per request of IBETH Bustamante, pt clothes returned
--- NOTE | 2022-04-14 20:21 | PC.NURSE ---
pt is alert and oriented x4 upon discharge, verbalizes understanding of all discharge instructions, has no further questions. Pt is ambulating at baseline with cane, reports feeling confident in going home to take care of self. Pt respirations are even and unlabored, skin pwd, speech is fully clear. Awaiting [employer] in waiting room
== END 2022-04-14 20:16 | disposition home or self-care (01) ==
PROVIDERS: Physician Assistant; Emergency Provider Emergency Medicine; PCP Student in an Organized Health Care Education/Training Program
DX: S02.2XXA Fracture of nasal bones, initial encounter for closed fracture (principal); S00.31XA Abrasion of nose, initial encounter; S06.9X9A Unspecified intracranial injury with loss of consciousness of unspecified duration, initial encounter; R51.9 Headache, unspecified; R07.89 Other chest pain; M54.6 Pain in thoracic spine; F10.129 Alcohol abuse with intoxication, unspecified; F17.210 Nicotine dependence, cigarettes, uncomplicated; Y90.8 Blood alcohol level of 240 mg/100 ml or more; W01.0XXA Fall on same level from slipping, tripping and stumbling without subsequent striking against object, initial encounter; Y93.9 Activity, unspecified; Y92.9 Unspecified place or not applicable; Y99.9 Unspecified external cause status; Z79.899 Other long term (current) drug therapy; Z71.6 Tobacco abuse counseling
CPT/HCPCS: 70450; 70486; 71045; 72125; 80053; 80307; 81001; 82077; 83735; 85025; 85610; 93005; 99284

== ENCOUNTER 2022-09-27 17:15 | Emergency (ER) | payer MEDICAID, SELFPAY ==
--- NOTE | ~2022-09-27 | CT_ITS ---
EXAMINATION: CT HEAD WITHOUT CONTRAST CLINICAL INFORMATION: Headache status-post fall; ethanol use. COMPARISON: CT brain dated 04/14/2022. TECHNIQUE: Contiguous axial imaging was performed from the skull base to vertex without intravenous administration of contrast. Multiplanar reformatted images are submitted. DLP: 1133 mGy-cm. (Head and cervical spine) FINDINGS: There is no intracranial hemorrhage or hematoma. There is a stable arachnoid cyst within the left temporal fossa. The ventricles are mildly prominent and symmetric. There is proportional bilateral generalized sulcal widening. There is no gross edema or mass effect. The gomez-white matter differentiation appears symmetric. There is no acute infarct or mass lesion. There is moderately severe patchy low attenuation change in the periventricular white matter spaces. The calvarium appears intact. There is no pneumocephalus or orbital emphysema. The visualized sinuses and middle ears and mastoid air cells show no significant mucosal thickening. There are no air-fluid levels. CT/CT cervical spine wo IV con IMPRESSION: 1. No acute intracranial pathology. 2. There is moderately severe patchy low attenuation change in the periventricular white matter spaces, commonly associated with chronic microangiopathy. 3. There is proportionate, stable ventriculomegaly and sulcal widening. EXAMINATION: CT CERVICAL SPINE WITHOUT CONTRAST CLINICAL INFORMATION: Pain status-post fall. COMPARISON: CT cervical spine dated 04/14/2022. TECHNIQUE: Without the addition of intravenous contrast, multiple contiguous multidetector transaxial sections are obtained through the cervical spine. Multiplanar reformatted images are submitted. This CT examination was performed using dose optimization techniques as appropriate, variously including the following: *Automated exposure control *Adjustment of mA and/or kV according to patient size (this includes techniques or standardized protocols for targeted exams where dose is matched to indication/reason for exam; i.e. extremities or head) *Use of iterative reconstruction technique DLP: As above FINDINGS: Vertebral body heights and alignment are normal. At C2-C3, there is a 2 mm anterolisthesis. At C3-C4, there is moderate disc space narrowing. There is a Schmorl's seen of the C3 lower endplate. At C5-C6, there is marked disc space narrowing. At C7-T1, there is a 2 mm anterolisthesis. No acute fracture or spondylolisthesis is seen. There is multi-level marked cervical spondylosis, most pronounced extending from C4-C5 through C6-C7. The posterior elements are intact. The dens is intact. No prevertebral soft tissue swelling is noted. The included bilateral lung apices are clear. There are paraseptal emphysematous changes. IMPRESSION: 1. No acute fracture or spondylolisthesis is seen. 2. There is multi-level cervical degenerative disc disease, spondylosis and facet arthropathy. Degenerative disc disease is most pronounced at C5-C6, where it is severe. Fleischner guidelines were followed.
--- NOTE | 2022-09-27 17:35 | ED_ITS ---
HPI - General Adult General Chief complaint: ETOH/Substance Use Stated complaint: etoh with a fall, per ems Time Seen by Provider: 09/27/22 17:24 Source: patient and EMS Mode of arrival: EMS Limitations: altered mental status (ETOH) History of Present Illness HPI narrative: Patient is a 62-year-old male presents emergency department via EMS acutely intoxicated. When asked patient states he is unsure why he is here, he reports that his girlfriend, Maria C, had called the ambulance when he was outside of her house ?on the corner?. Patient endorses drinking ?a couple of beers today?, and reporting that he does drink daily. EMS reports that patient had fallen off of a chair while outdoors. EMS did not report any no loss of consciousness or head strike, when asking patient he denies having fallen. He denies any physical complaints at this time. Related Data Home Medications Medication Instructions Recorded Confirmed thiamine HCl (vitamin B1) 100 mg 1 tab PO DAILY 09/20/20 03/01/21 tablet (Vitamin B-1) albuterol sulfate 90 mcg/actuation 2 puff PO Q4H PRN Shortness Of 12/16/20 03/01/21 aerosol inhaler (ProAir HFA) Breath multivitamin 1 tab PO DAILY 12/16/20 03/01/21 aspirin 81 mg tablet,delayed 1 tab PO DAILY 01/22/21 03/01/21 release folic acid 1 mg tablet 1 mg PO DAILY 03/01/21 03/01/21 oxcarbazepine 150 mg tablet 150 mg PO TID 03/01/21 03/01/21 Previous Rx's Medication Instructions Recorded amlodipine 10 mg tablet 10 mg PO DAILY #30 tabs 03/20/21 atorvastatin 20 mg tablet (Lipitor) 20 mg PO BEDTIME #30 tabs 03/20/21 carvedilol 12.5 mg tablet 25 mg PO BID #60 tabs 03/20/21 fluoxetine 20 mg tablet 20 mg PO DAILY #0 tabs 03/20/21 losartan 25 mg tablet 25 mg PO BID #60 tabs 03/20/21 Allergies Allergy/AdvReac Type Severity Reaction Status Date / Time acetaminophen [From PERCOCET] Allergy Mild Rash Verified 09/21/20 17:29 oxycodone [From PERCOCET] Allergy Mild Rash Verified 07/11/21 17:29 Penicillins [PENICILLINS] Allergy Mild Rash Verified 09/21/20 17:29 Review of Systems Review of Systems: Constitutional: No weight loss, fever, chills, weakness or fatigue. Skin: No rash or itching. Cardiovascular: No chest pain, chest pressure or chest discomfort. No palpitations or pedal edema. Respiratory: No shortness of breath, cough or sputum production. Gastrointestinal: No anorexia, nausea, vomiting or diarrhea. No abdominal pain or blood in stool. Genitourinary: No burning micturition. No urinary frequency or incontinence. Musculoskeletal: No muscle pain, back pain, joint pain or stiffness. Psychiatric: No depression or anxiety. Yes all other systems are reviewed and are negative PMFSH Past Medical History Attestation statement: The following information was validated with the patient. Source: old records reviewed Medical History Acute hypokalemia Acute hyponatremia Anemia Arachnoid cyst Cerebral microvascular disease COPD (chronic obstructive pulmonary disease) H/O ETOH abuse HCV (hepatitis C virus) Heart disease Hypertension Seizure disorder Surgical History H/O left wrist surgery Social History Social History Household Members: None Household Members Other:: Brother Housing: Homeless Do you presently have visiting nurse or other home services: No Alcohol intake: current Alcohol intake frequency: 3 or more drinks per day Alcohol type: beer Patient Tobacco Use Status: Current everyday Tobacco user Tobacco use type: Cigarette Cigarette Packs Per Day: 0.5 Cigarettes Per Day: 10 Smoked in Last 30 Days: Yes Second Hand Smoke Exposure: No Use of substances other than those prescribed or required for medical reasons: No Advance Directives: No Advance Directives Information Provided: No service: No Current occupational status: unemployed Physical Exam ED Vital Signs: Vital Signs - 24 hr 09/27/22 17:46 09/27/22 22:52 09/27/22 22:57 Temperature 97.9 F 98.3 F 97.4 F Pulse Rate 80 81 90 Respiratory Rate 16 18 17 Blood Pressure 106/59 L 100/62 95/67 Pulse Oximetry 96 95 91 L Oxygen Delivery Method Room Air Room Air Room Air 09/28/22 00:07 Temperature Pulse Rate 81 Respiratory Rate 16 Blood Pressure 117/73 Pulse Oximetry 94 Oxygen Delivery Method Room Air BMI result Body Mass Index 24.3 Appearance: Alert.?Oriented to person, place and time. No acute distress.?Normal affect. Head: Normocephalic atraumatic Eyes: Pupils equal, round and reactive to light.? EOMI. ENT: Pharynx normal.?? Neck: Normal inspection.? Neck supple.??No midline cervical spine tenderness, step-offs, deformities CVS: Heart sounds normal. Normal heart rate and rhythm.? Pulses normal.?? Respiratory: No respiratory distress.? Lung sounds clear to auscultation bilaterally?? Abdomen: Soft and non-tender. Normoactive bowel sounds. ? Skin: Skin warm and dry.? Normal skin color.? Extremities: No lower extremity edema.? Neuro: Moves all extremities spontaneously. Sensation intact bilaterally. CN II- XII intact. No focal neuro deficits. Ambulates with normal steady gait. Course Reevaluation(s) Reevaluation #1: Mild hyponatremia, 129 with normal renal function, a line while how likely secondary to dehydration. Patient to receive 1 L normal saline. Time: 19:08 Reevaluation #2: CT of the head reveals no acute intracranial pathology, chronic microangiopathic changes, no acute fracture or it is bundle with the cysts of the cervical spine, there is multi 2 level cervical degenerative disc disease. Time: 20:39 Reevaluation #3: Hyponatremia has resolved after receiving IV fluids. Remains without complaints. Placed in physician observation; Patient signed out to Danica Mcneill MD pending clinical sobriety Time: 02:05 Additional Reevaluation(s): 9:23 am - patient awake, alert, oriented, clinically sober. He admits to heavy alcohol use yesterday. He denies daily alcohol use or history of withdrawal. He denies any pain at this time. He denies the need to see when from Addiction Medicine or recovery. He like to be discharged home. No SI or HI. He will call his girlfriend for discharge. He is stable for discharge home. Physician observation and at this time. Vital signs stable. Medications Administered Discontinued Medications Generic Name Dose Route Start Last Admin Trade Name Freq PRN Reason Stop Dose Admin Sodium Chloride 1,000 mls @ 999 mls/hr 09/27/22:15 09/28/22 01:30 Ns IV 09/27/22 20:15 Infused .Q1H1M CHEPE Infusion Medical Decision Making Medical Decision Making MDM Narrative: Patient is a 62-year-old male with past medical history of anemia, COPD, hypertension, seizure disorder, cerebral microvascular disease, alcohol use disorder presenting to emergency department for evaluation after a fall. The circumstances surrounding the fall are unclear. When asked patient denies any precipitating symptoms, however he furthermore denies any fall and he is acutely intoxicated, therefore a poor historian at this time. Physical examination is overall benign. He has no physical complaints. Given age an uncertain CT of head strike with fall will obtain CT of the head and cervical spine to evaluate for traumatic ICH/SDH/fracture/subluxation. In addition will obtain basic labs and toxicology testing. Differential Diagnosis Differential Diagnoses: The differential diagnosis associated with the presentation includes (As noted above) Admission/Observation Consideration of admission/observation: Escalation of care including admission/observation considered (As noted in course) Lab Data MDM Lab Attestation statement: I reviewed the patient's lab results. (As noted in course) 09/27/22 18:29 09/27/22 18:29 Labs: Lab Results 09/27/22 09/27/22 09/27/22 Range/Units 18:29 18:29 22:40 WBC 5.7 (4.8-10.8) X10*3/uL RBC 2.25 L D (4.60-5.80) X10*6/uL Hgb 8.1 L D (14.0-18.0) g/dl Hct 23.1 L D (42.0-52.0) % MCV 102.7 H (80.0-98.0) fL MCH 36.0 H (27.0-33.0) pg MCHC 35.1 (31.0-36.0) g/dl RDW 15.9 (11.0-16.0) % Plt Count 270 D (160-400) X10*3/uL MPV 8.6 L (9.4-12.4) fL Immature Gran % (Auto) 0.3 (0.0-0.4) % Neut % (Auto) 52.8 (45-73) % Lymph % (Auto) 24.2 (20-40) % [place] % (Auto) 16.2 H (2-11) % Eos % (Auto) 4.9 H (0-4) % Baso % (Auto) 1.6 (0-2) % Lymph # (Auto) 1.4 (1.2-4.9) X10*3/uL [place] # (Auto) 0.9 (0.1-1.2) X10*3/uL Eos # (Auto) 0.3 (0.0-0.4) X10*3/uL Baso # (Auto) 0.1 (0.0-0.2) X10*3/uL Abs Immat Gran (auto) 0.02 (0.00-0.03) X10*3/uL Absolute Neuts (auto) 3.0 (2.0-8.3) x10*3/uL Absolute Nucleated RBC 0.000 (0.0-0.012) X10*3/uL Nucleated RBC % (auto) 0.0 (0.0-0.2) /100WBC Sodium 129 L (135-145) mmol/L Potassium 4.0 (3.3-5.1) mmol/L Chloride 95 L (96-108) mmol/L Carbon Dioxide 22 (22-29) mmol/L Anion Gap 16 (12-20) BUN 10 (9-16) mg/dL Creatinine 0.86 (0.5-1.4) mg/dL Estim Creat Clear Calc 88.3 Estimated GFR > 60 Random Glucose 60 (60-115) mg/dL Calcium 8.0 L D (8.4-10.2) mg/dL Total Bilirubin 0.7 (0.0-1.0) mg/dL AST 29 (5-37) U/L ALT 14 (0-40) U/L Alkaline Phosphatase 79 (39-117) U/L Total Protein 6.0 L (6.5-8.0) g/dL Albumin 3.2 L (3.5-5.0) g/dL Urine Color Yellow Urine Appearance Clear Urine pH 6.0 (5.0-9.0) Ur Specific [place] <= 1.005 (1.005-1.025) Urine Protein Negative (Neg-Trace) mg/dL Urine Glucose (UA) Negative (Negative) mg/dL Urine Ketones Negative (Negative) mg/dL Urine Blood Negative (Negative) Urine Nitrite Negative (Negative) Ur Leukocyte Esterase Negative (Negative) Urine Opiates Screen (Not Detect) Urine Fentanyl Screen (Not Detect) Ur Barbiturates Screen (Not Detect) Ur Phencyclidine Scrn (Not Detect) Ur Amphetamines Screen (Not Detect) U Benzodiazepines Scrn (Not Detect) Urine Cocaine Screen (Not Detect) U Marijuana (THC) Screen (Not Detect) Ethyl Alcohol 277 mg/dL 09/27/22 09/28/22 Range/Units 22:41 01:23 WBC (4.8-10.8) X10*3/uL RBC (4.60-5.80) X10*6/uL Hgb (14.0-18.0) g/dl Hct (42.0-52.0) % MCV (80.0-98.0) fL MCH (27.0-33.0) pg MCHC (31.0-36.0) g/dl RDW (11.0-16.0) % Plt Count (160-400) X10*3/uL MPV (9.4-12.4) fL Immature Gran % (Auto) (0.0-0.4) % Neut % (Auto) (45-73) % Lymph % (Auto) (20-40) % [place] % (Auto) (2-11) % Eos % (Auto) (0-4) % Baso % (Auto) (0-2) % Lymph # (Auto) (1.2-4.9) X10*3/uL [place] # (Auto) (0.1-1.2) X10*3/uL Eos # (Auto) (0.0-0.4) X10*3/uL Baso # (Auto) (0.0-0.2) X10*3/uL Abs Immat Gran (auto) (0.00-0.03) X10*3/uL Absolute Neuts (auto) (2.0-8.3) x10*3/uL Absolute Nucleated RBC (0.0-0.012) X10*3/uL Nucleated RBC % (auto) (0.0-0.2) /100WBC Sodium 136 (135-145) mmol/L Potassium 4.1 (3.3-5.1) mmol/L Chloride 101 (96-108) mmol/L Carbon Dioxide 22 (22-29) mmol/L Anion Gap 17 (12-20) BUN 11 (9-16) mg/dL Creatinine 0.99 (0.5-1.4) mg/dL Estim Creat Clear Calc 76.7 Estimated GFR > 60 Random Glucose 73 (60-115) mg/dL Calcium 8.1 L (8.4-10.2) mg/dL Total Bilirubin (0.0-1.0) mg/dL AST (5-37) U/L ALT (0-40) U/L Alkaline Phosphatase (39-117) U/L Total Protein (6.5-8.0) g/dL Albumin (3.5-5.0) g/dL Urine Color Urine Appearance Urine pH (5.0-9.0) Ur Specific [place] (1.005-1.025) Urine Protein (Neg-Trace) mg/dL Urine Glucose (UA) (Negative) mg/dL Urine Ketones (Negative) mg/dL Urine Blood (Negative) Urine Nitrite (Negative) Ur Leukocyte Esterase (Negative) Urine Opiates Screen Not Detected (Not Detect) Urine Fentanyl Screen Not Detected (Not Detect) Ur Barbiturates Screen POSITIVE H (Not Detect) Ur Phencyclidine Scrn Not Detected (Not Detect) Ur Amphetamines Screen Not Detected (Not Detect) U Benzodiazepines Scrn Not Detected (Not Detect) Urine Cocaine Screen Not Detected (Not Detect) U Marijuana (THC) Screen Not Detected (Not Detect) Ethyl Alcohol mg/dL Independent Interpretation I performed an independent interpretation of an: CT Scan Radiology Impression Discussion of test interpretation with radiology: I have reviewed the radiologist's reading. Radiologist Impression: CT/CT head/brain wo IV con IMPRESSION: ? 1. No acute intracranial pathology. ? 2. There is moderately severe patchy low attenuation change in the periventricular white matter spaces, commonly associated with chronic microangiopathy. ? 3. There is proportionate, stable ventriculomegaly and sulcal widening. IMPRESSION: ? 1. No acute fracture or spondylolisthesis is seen. ? 2. There is multi-level cervical degenerative disc disease, spondylosis and facet arthropathy. Degenerative disc disease is most pronounced at C5-C6, where it is severe.? ? Fleischner guidelines were followed. Independent Historian Clinical information obtained from an independent historian. History obtained from or confirmed by: EMS (History obtained from EMS as per HPI) Discharge Plan Discharge Clinical Impression: Alcoholic intoxication Patient Disposition: Home, Self-Care Instructions: Abuse of Alcohol (ED) Additional Instructions: Do not abuse alcohol Follow-up with your doctor If you develop new or worsening symptoms call 911 or come back to the ER for further evaluation. Prescriptions: No Action thiamine HCl (vitamin B1) [Vitamin B-1] 100 mg tablet 1 tab PO DAILY multivitamin Tablet 1 tab PO DAILY albuterol sulfate [ProAir HFA] 90 mcg/actuation HFA aerosol inhaler 2 puff PO Q4H PRN (Reason: Shortness Of Breath) oxcarbazepine 150 mg Tablet 150 mg PO TID folic acid 1 mg Tablet 1 mg PO DAILY carvedilol 12.5 mg Tablet 25 mg PO BID Qty: 60 0RF Protocol: Hold for SBP/HR < HOLD for SBP < : 90 HOLD for HR < : 60 amlodipine 10 mg Tablet 10 mg PO DAILY Qty: 30 0RF Protocol: Hold for SBP< HOLD for SBP < : 90 atorvastatin [Lipitor] 20 mg tablet 20 mg PO BEDTIME Qty: 30 0RF fluoxetine 20 mg Tablet 20 mg PO DAILY Qty: 0 0RF losartan 25 mg Tablet 25 mg PO BID Qty: 60 0RF Protocol: Hold for SBP< HOLD for SBP < : 90 aspirin 81 mg tablet,delayed release (DR/EC) 1 tab PO DAILY
[2022-09-27 17:46] VITALS: BP 106/59; PULSE 80; RESP 16; TEMP 36.6; O2SAT 96; BMI 24.3
[2022-09-27 18:36] LABS: MANUAL DIFF FLAG NO
[2022-09-27 18:45] LABS: Basophils Absolute Auto 0.1 X10*3/uL (0.0-0.2); Basophils Percent Auto 1.6 % (0-2); Eosinophils Absolute Auto 0.3 X10*3/uL (0.0-0.4); Eosinophils Percent Auto 4.9 % (0-4); Hematocrit 23.1 % (42.0-52.0); Hemoglobin 8.1 g/dl (14.0-18.0); Imm Gran Abs Auto 0.02 X10*3/uL (0.00-0.03); Imm Gran Pct Auto 0.3 % (0.0-0.4); Lymphocytes Absolute Auto 1.4 X10*3/uL (1.2-4.9); Lymphocytes Percent Auto 24.2 % (20-40); Mean Corpuscular HGB Conc 35.1 g/dl (31.0-36.0); Mean Corpuscular Volume 102.7 fL (80.0-98.0); Mean Platelet Volume 8.6 fL (9.4-12.4); Monocytes Absolute Auto 0.9 X10*3/uL (0.1-1.2); Monocytes Percent Auto 16.2 % (2-11); Neutrophils Percent Auto 52.8 % (45-73); Platelet Count 270 X10*3/uL (160-400); Red Blood Count 2.25 X10*6/uL (4.60-5.80); Red Cell Distribution Width 15.9 % (11.0-16.0); White Blood Count 5.7 X10*3/uL (4.8-10.8)
[2022-09-27 18:54] LABS: Alanine Aminotransferase 14 U/L (0-40); Albumin Level 3.2 g/dL (3.5-5.0); Alkaline Phosphatase 79 U/L (39-117); Anion Gap 16 (12-20); Aspartate Amino Transferase 29 U/L (5-37); Bilirubin Total 0.7 mg/dL (0.0-1.0); Blood Urea Nitrogen 10 mg/dL (9-16); Carbon Dioxide 22 mmol/L (22-29); Chloride 95 mmol/L (96-108); Creatinine Clr Calc Pharmacy 88.3; Estimated Glomerular Filt Rate > 60; Ethanol 277 mg/dL; Glucose Random 60 mg/dL (60-115); Sodium 129 mmol/L (135-145)
[2022-09-27] MEDS: 0.9 % Sodium Chloride 1,000 ML 999 ML IV (19:45)
--- NOTE | 2022-09-27 20:10 | MHC.RECOVSUP ---
? Reason for consult Recovery Support o Current location: ED22[facility] o Identified substance use concern: Alcohol - Seeking ATS (detox) - Support ? Intervention: o Community resources provided o Harm reduction discussion ? Plan: o Patient to follow up with H after discharge ? Additional information: Met with patient and patient stated that he was open for Detox.. Patient has not been cleared yet But at the moment i could not find patient a bed
--- NOTE | 2022-09-27 22:16 | MHC.EDTECH ---
Sandwhich and drink given
--- NOTE | 2022-09-27 22:44 | MHC.EDTECH ---
Patient cleaned and changed over
[2022-09-27 22:51] LABS: Appearance Urine Clear; Color Urine Yellow; Glucose Urine UA Negative (Negative); Leukocyte Esterase Urine Negative (Negative); Nitrite Urine Negative (Negative); Specific Gravity - Urine <= 1.005 (1.005-1.025); Urine Blood Negative (Negative); Urine Ketones Negative (Negative); Urine Protein Negative (Neg-Trace)
[2022-09-27 22:52] VITALS: BP 100/62; PULSE 81; RESP 18; TEMP 36.8; O2SAT 95
[2022-09-27 22:57] VITALS: BP 95/67; PULSE 90; RESP 17; TEMP 36.3; O2SAT 91
[2022-09-27 23:00] LABS: Amphetamine Screen Urine Not Detected (Not Detect); Barbiturates, Urine POSITIVE (Not Detect); Benzodiazepines Screen Urine Not Detected (Not Detect); Cannabinoid Screen Urine Not Detected (Not Detect); Cocaine Screen Urine Not Detected (Not Detect); Fentanyl, urine Not Detected (Not Detect); Opiate Screen Urine Not Detected (Not Detect); Phencyclidine Screen Urine Not Detected (Not Detect)
[2022-09-28 00:07] VITALS: BP 117/73; PULSE 81; RESP 16; O2SAT 94
--- NOTE | 2022-09-28 00:28 | PC.NURSE ---
IV to left AC was kinked and coming out. IV removed. new IV to right AC placed, IV fluids running as ordered. patient calm and cooperative w/ care
[2022-09-28 01:40] LABS: Anion Gap 17 (12-20); Blood Urea Nitrogen 11 mg/dL (9-16); Calcium 8.1 mg/dL (8.4-10.2); Carbon Dioxide 22 mmol/L (22-29); Chloride 101 mmol/L (96-108); Creatinine Clr Calc Pharmacy 76.7; Estimated Glomerular Filt Rate > 60; Glucose Random 73 mg/dL (60-115); Potassium 4.1 mmol/L (3.3-5.1); Sodium 136 mmol/L (135-145)
--- NOTE | 2022-09-28 02:16 | PC.NURSE ---
Report received and care assumed at 0100. The pt is resting comfortably in stretcher without distress noted, respirations even and unlabored with nothing remarkable to note at this time
== END 2022-09-28 10:32 | disposition home or self-care (01) ==
PROVIDERS: Nurse Practitioner Family; Emergency Provider Student in an Organized Health Care Education/Training Program; PCP Student in an Organized Health Care Education/Training Program
DX: F10.220 Alcohol dependence with intoxication, uncomplicated (principal); Y90.8 Blood alcohol level of 240 mg/100 ml or more; Z91.81 History of falling; E87.1 Hypo-osmolality and hyponatremia; F17.210 Nicotine dependence, cigarettes, uncomplicated; Z79.899 Other long term (current) drug therapy
CPT/HCPCS: 36415; 70450; 72125; 80048; 80053; 80307; 81003; 85025; 96360; 96361; 99285

== ENCOUNTER 2023-07-04 17:42 | Emergency (ER) | payer MEDICAID, SELFPAY ==
--- NOTE | ~2023-07-04 | CT_ITS ---
EXAMINATION: CT HEAD WITHOUT CONTRAST CT CERVICAL SPINE WITHOUT CONTRAST CLINICAL INFORMATION: Fall with head strike. COMPARISON: CT imaging from 09/27/2022. TECHNIQUE: Contiguous axial imaging was performed from the skullbase to vertex without intravenous administration of contrast. Multidetector helical imaging was performed through the cervical spine. This CT examination was performed using dose optimization techniques as appropriate, variously including the following: *Automated exposure control *Adjustment of mA and/or kV according to patient size (this includes techniques or standardized protocols for targeted exams where dose is matched to indication/reason for exam; i.e. extremities or head) *Use of iterative reconstruction technique DLP: 1074 mGy-cm. FINDINGS: HEAD: There is no evidence of acute intracranial hemorrhage or territorial infarction. No abnormal mass effect or midline shift is seen. Huertas to white matter differentiation is well preserved. Right middle cranial fossa arachnoid cyst is unchanged. Extensive chronic white matter microangiopathy again evident. Moderate to severe diffuse brain parenchymal volume loss is stable with commensurate ex vacuo prominence of the ventricles. The osseous structures and soft tissues are normal. The mastoid air cells are well aerated. Mild ethmoid sinus mucosal thickening noted. CERVICAL SPINE: No acute fracture or subluxation is identified in the cervical spine. Moderate multilevel cervical spondylosis noted with hypertrophic facet arthropathy and disc-osteophyte complexes. Solid bridging endplate osteophyte formation visible anterolaterally on the right side, most notably from the C5-C7 levels. The atlantoaxial articulation is normally maintained. The paraspinal soft tissues are normal. The lung apices are clear with extensive bullous disease and emphysematous changes. CT/CT cervical spine wo IV con IMPRESSION: 1. No acute intracranial pathology. 2. No evidence of acute cervical spine traumatic injury. Moderate spondylosis. 3. Upper lobe emphysematous changes and significant bullous disease.
--- NOTE | 2023-07-04 17:58 | ED_ITS ---
HPI - General Adult General Chief complaint: ETOH/Substance Use Stated complaint: ETOH, FALL Time Seen by Provider: 07/04/23 17:46 Source: patient, EMS and RN notes reviewed Mode of arrival: EMS Limitations: no limitations History of Present Illness HPI narrative: Patient is a 62-year-old male with history of renal artery stenosis, hyponatremia, heart disease, seizure disorder, hepatitis-C, arachnoid cyst, cerebral microvascular disease, COPD, alcoholism presenting to the ED via EMS after being found on the ground outside. A bystander called 911 but did not witness a fall. EMS found patient on the ground. Patient states that he does not remember falling and is unsure why he is here. He denies any complaints. Denies headache, vision changes, chest pain, abdominal pain, nausea, vomiting. He does admit to drinking 5 beers today. MD complaint: evaluation after fall Onset (ago): unknown Associated symptoms: denies other symptoms Treatments prior to arrival: none Related Data Home Medications ?Medication ?Instructions ?Recorded ?Confirmed thiamine HCl (vitamin B1) 100 mg 1 tab PO DAILY 09/20/20 03/01/21 tablet (Vitamin B-1) albuterol sulfate 90 mcg/actuation 2 puff PO Q4H PRN Shortness Of 12/16/20 03/01/21 aerosol inhaler (ProAir HFA) Breath multivitamin 1 tab PO DAILY 12/16/20 03/01/21 aspirin 81 mg tablet,delayed 1 tab PO DAILY 01/22/21 03/01/21 release folic acid 1 mg tablet 1 mg PO DAILY 03/01/21 03/01/21 oxcarbazepine 150 mg tablet 150 mg PO TID 03/01/21 03/01/21 Previous Rx's ?Medication ?Instructions ?Recorded amlodipine 10 mg tablet 10 mg PO DAILY #30 tabs 03/20/21 atorvastatin 20 mg tablet (Lipitor) 20 mg PO BEDTIME #30 tabs 03/20/21 carvedilol 12.5 mg tablet 25 mg PO BID #60 tabs 03/20/21 fluoxetine 20 mg tablet 20 mg PO DAILY #0 tabs 03/20/21 losartan 25 mg tablet 25 mg PO BID #60 tabs 03/20/21 Allergies Allergy/AdvReac Type Severity Reaction Status Date / Time acetaminophen [From PERCOCET] Allergy Mild Rash Verified 04/22/24 18:07 oxycodone [From PERCOCET] Allergy Mild Rash Verified 07/04/23 18:07 Penicillins [PENICILLINS] Allergy Mild Rash Verified 07/04/23 18:07 Review of Systems 2 Review of Systems: As per HPI. Yes all other systems are reviewed and are negative Constitutional: Constitutional: Reports as per HPI [facility] Past Medical History Medical History Acute hypokalemia Acute hyponatremia Anemia Arachnoid cyst Cerebral microvascular disease COPD (chronic obstructive pulmonary disease) H/O ETOH abuse HCV (hepatitis C virus) Heart disease Hypertension Seizure disorder Surgical History H/O left wrist surgery Social History Social History Household Members: None Household Members Other:: Brother Housing: Homeless Do you presently have visiting nurse or other home services: No Alcohol intake: current Alcohol intake frequency: 3 or more drinks per day Alcohol type: beer Comment: 1:1 sitter Patient Tobacco Use Status: Current everyday Tobacco user Tobacco use type: Cigarette Cigarette Packs Per Day: 0.5 Cigarettes Per Day: 10 Smoked in Last 30 Days: Yes Second Hand Smoke Exposure: No Use of substances other than those prescribed or required for medical reasons: No Advance Directives: No Advance Directives Information Provided: No Do you have a plan to hurt others: No Plan service: No Current occupational status: unemployed Physical Exam ED Vital Signs: Vital Signs - 24 hr 07/04/23 18:03 07/05/23 00:00 07/05/23 04:00 Temperature 98.5 F Pulse Rate 74 Respiratory Rate 16 12 14 Blood Pressure 117/65 Pulse Oximetry 97 Oxygen Delivery Method Room Air 07/05/23 06:16 Temperature 97.8 F Pulse Rate 78 Respiratory Rate 18 Blood Pressure 136/79 Pulse Oximetry 97 Oxygen Delivery Method Room Air BMI result Body Mass Index 26.7 Vital signs have been reviewed and appear to be correct. Blood pressure normal. Heart rate normal. Respiratory rate normal. Temperature normal. Oxygen saturation normal. Const General: cooperative, no acute distress and poor hygiene Nutritional Appearance: average body habitus Orientation/consciousness: oriented to person, oriented to place, oriented to time and patient oriented x3 Limitations: no limitations [facility] Head: Yes normal to inspection, Yes No palpable skull fracture present, Yes normocephalic, Yes atraumatic, No raccoon eyes and No periorbital ecchymosis Ears: external ears normal, TM's normal bilaterally and EAC's normal General nose exam: Normal external nose present, Normal nasal mucous membranes and turbinates present and Normal septum present Face and sinus: Yes face symmetric Mouth: oropharynx normal and moist mucous membranes Throat: Yes posterior oropharynx normal and Yes uvula midline Eyes Pupils: Equal, round and reactive pupils present EOM: EOMs intact bilaterally Neck Neck: Yes normal visual inspection, Yes full ROM, Yes no meningeal signs, Yes trachea midline and Yes supple Chest Chest palpation & inspection: normal inspection of the chest and normal palpation of entire chest wall Resp Effort & Inspection: normal respiratory effort and able to speak in complete sentences Auscultation: clear to auscultation bilaterally Cardio Rate: regular rate Rhythm: regular rhythm Heart sounds: S1 normal heart sound present and S2 normal heart sound present GI Palpation (GI): Soft to palpation and nontender Auscultation: normoactive bowel sounds General: Yes no CVA tenderness Back/Spine/Pelvis Back: no CVA tenderness Cervical Spine: normal cervical lordosis, cervical ROM normal, No collar present, No cervical muscular tenderness, No pain with cervical ROM, No Cervical spine tenderness and No step off deformity Thoracic/Lumbar Spine: thoracic and lumbar spine normal to inspection, thoraco- lumbar ROM normal, No thoracic spinal tenderness and No lumbar spinal tenderness Pelvis: no pain with anterior-posterior compression and no pain with lateral compression Skin General skin exam: elasticity normal and turgor normal Neuro General: oriented to person, oriented to place, oriented to time, patient oriented x3, tone normal, moves all extremities, Normal light touch and pain sensation, no meningeal signs, no focal motor deficits, CN's II-XI intact bilaterally and deep tendon reflexes 2+ bilaterally Cranial nerves: Yes Equal, round and reactive pupils present Cognition (Neuro): normal cognition Motor exam (neuro): 5/5 motor strength present throughout, Pronator motor function not present, Normal motor muscle tone present throughout and Motor abnormalities not present Extrem General: Yes normal to inspection, Yes full ROM, Yes capillary refill normal, Yes no pedal edema and Yes no calf tenderness Psych Mental Status: mental status grossly normal Affect: normal affect Thought process: Normal thought process present Course Reevaluation(s) Reevaluation #1: 07/05/2023 0819 --> Observation care revealed that the patient does not meet medical necessity for hospitalization. Final disposition of discharge discussed with the patient who verbalized agreement and understanding. Patient completed observation care at 0820, total time in observation care was 10 hours and 39 minutes. Medications Administered Discontinued Medications Generic Name Dose Route Start Last Admin Trade Name Debbie PRN Reason Stop Dose Admin Sodium Chloride 1,000 mls @ 999 mls/hr 07/04/23 18:45 07/04/23 21:44 Ns IV 07/04/23 19:45 Infused .Q1H1M CHEPE Infusion Ibuprofen 400 mg 07/05/23 06:28 07/05/23 06:36 Ibuprofen 400 Mg Tablet PO 07/05/23 06:29 400 mg ONCE ONE Administration Medical Decision Making Medical Decision Making [facility] Narrative: Patient is a 62-year-old male with history of renal artery stenosis, hyponatremia, heart disease, seizure disorder, hepatitis-C, arachnoid cyst, cerebral microvascular disease, COPD, alcoholism presenting to the ED via EMS after being found on the ground outside. On exam patient is awake, A+Ox3, VS WNL, afebrile, normal neurological exam without focal deficits, physical exam findings as above. Given reported symptoms and physical exam findings, initial differential includes ICH, skull or cervical vertebral fracture or subluxation, alcohol intoxication, electrolyte abnormality. Labs notable for chronic microcytic anemia, hyponatremia likely due to dehydration, no evidence of MAI, LFTs grossly within normal limits. CT head and c-spine notable for no evidence of ICH, cervical vertebral fracture or subluxation.. My interpretation is in agreement with the radiologist's interpretation. Patient placed on physician observation until clinically sober. Differential Diagnosis Differential Diagnoses: The differential diagnosis associated with the presentation includes As per [facility] Admission/Observation Consideration of admission/observation: Escalation of care including admission/observation considered Patient would have been admitted to the hospital had their work up had any findings where hospital admission was appropriate and their clinical presentation warranted hospital admission. Lab Data [facility] Lab Attestation statement: I reviewed the patient's lab results. As per [facility] 07/04/23 18:16 07/04/23 18:16 Labs: Lab Results 07/04/23 Range/Units 18:16 WBC 4.6 L (4.8-10.8) X10*3/uL RBC 2.81 L D (4.60-5.80) X10*6/uL Hgb 9.6 L (14.0-18.0) g/dl Hct 26.7 L (42.0-52.0) % MCV 95.0 (80.0-98.0) fL MCH 34.2 H (27.0-33.0) pg MCHC 36.0 (31.0-36.0) g/dl RDW 14.3 (11.0-16.0) % Plt Count 105 L D (160-400) X10*3/uL MPV 9.3 L (9.4-12.4) fL Immature Gran % (Auto) 0.4 (0.0-0.4) % Neut % (Auto) 43.4 L (45-73) % Lymph % (Auto) 29.2 (20-40) % [place] % (Auto) 20.2 H (2-11) % Eos % (Auto) 5.5 H (0-4) % Baso % (Auto) 1.3 (0-2) % Lymph # (Auto) 1.3 (1.2-4.9) X10*3/uL [place] # (Auto) 0.9 (0.1-1.2) X10*3/uL Eos # (Auto) 0.3 (0.0-0.4) X10*3/uL Baso # (Auto) 0.1 (0.0-0.2) X10*3/uL Abs Immat Gran (auto) 0.02 (0.00-0.03) X10*3/uL Absolute Neuts (auto) 2.0 (2.0-8.3) x10*3/uL Absolute Nucleated RBC 0.000 (0.0-0.012) X10*3/uL Nucleated RBC % (auto) 0.0 (0.0-0.2) /100WBC Smear Tech's Comments VERIFIED Sodium 127 L (135-145) mmol/L Potassium 3.3 (3.3-5.1) mmol/L Chloride 93 L (96-108) mmol/L Carbon Dioxide 22 (22-29) mmol/L Anion Gap 15 (12-20) BUN 13 (9-16) mg/dL Creatinine 0.86 (0.5-1.4) mg/dL Estim Creat Clear Calc 85.4 Estimated GFR > 60 Random Glucose 84 (60-115) mg/dL Calcium 8.3 L (8.4-10.2) mg/dL Total Bilirubin 0.4 (0.0-1.0) mg/dL AST 62 H (5-37) U/L ALT 35 (0-40) U/L Alkaline Phosphatase 87 (39-117) U/L Total Protein 6.3 L (6.5-8.0) g/dL Albumin 3.6 (3.5-5.0) g/dL Ethyl Alcohol 241 mg/dL Independent Interpretation I performed an independent interpretation of an: CT Scan Interpretation: CT head and c-spine notable for no evidence of ICH, cervical vertebral fracture or subluxation. Radiology Impression Discussion of test interpretation with radiology: I have reviewed the radiologist's reading. Radiologist Impression: CT/CT cervical spine wo IV con IMPRESSION: 1. No acute intracranial pathology. 2. No evidence of acute cervical spine traumatic injury. Moderate spondylosis. 3. Upper lobe emphysematous changes and significant bullous disease. External Record Review External record reviewed: Inpatient record, Office record and Outpatient record Discharge Plan Discharge Clinical Impression: Alcoholic intoxication Patient Disposition: Still a Patient Instructions: Alcohol Intoxication (ED), Abuse of Alcohol (ED) Additional Instructions: You were evaluated in the emergency department today after a possible fall. Your evaluation did not show evidence of conditions requiring emergent medical treatment at this time. Please follow-up with your primary care provider. Do not abuse alcohol. Return to the emergency department for new or worsening symptoms. Prescriptions: No Action thiamine HCl (vitamin B1) [Vitamin B-1] 100 mg tablet 1 tab PO DAILY multivitamin Tablet 1 tab PO DAILY albuterol sulfate [ProAir HFA] 90 mcg/actuation HFA aerosol inhaler 2 puff PO Q4H PRN (Reason: Shortness Of Breath) oxcarbazepine 150 mg Tablet 150 mg PO TID folic acid 1 mg Tablet 1 mg PO DAILY carvedilol 12.5 mg Tablet 25 mg PO BID Qty: 60 0RF Protocol: Hold for SBP/HR < HOLD for SBP < : 90 HOLD for HR < : 60 amlodipine 10 mg Tablet 10 mg PO DAILY Qty: 30 0RF Protocol: Hold for SBP< HOLD for SBP < : 90 atorvastatin [Lipitor] 20 mg tablet 20 mg PO BEDTIME Qty: 30 0RF fluoxetine 20 mg Tablet 20 mg PO DAILY Qty: 0 0RF losartan 25 mg Tablet 25 mg PO BID Qty: 60 0RF Protocol: Hold for SBP< HOLD for SBP < : 90 aspirin 81 mg tablet,delayed release (DR/EC) 1 tab PO DAILY Print Language: [place] Citizen
[2023-07-04 18:03] VITALS: BP 112/68; BP 117/65; PULSE 74; RESP 16; TEMP 36.9; O2SAT 95; O2SAT 97; BMI 26.7
[2023-07-04 18:21] LABS: Basophils Absolute Auto 0.1 X10*3/uL (0.0-0.2); Basophils Percent Auto 1.3 % (0-2); Eosinophils Absolute Auto 0.3 X10*3/uL (0.0-0.4); Eosinophils Percent Auto 5.5 % (0-4); Hematocrit 26.7 % (42.0-52.0); Hemoglobin 9.6 g/dl (14.0-18.0); Imm Gran Abs Auto 0.02 X10*3/uL (0.00-0.03); Imm Gran Pct Auto 0.4 % (0.0-0.4); Lymphocytes Absolute Auto 1.3 X10*3/uL (1.2-4.9); Lymphocytes Percent Auto 29.2 % (20-40); MANUAL DIFF FLAG SCAN; Mean Corpuscular Hemoglobin 34.2 pg (27.0-33.0); Mean Platelet Volume 9.3 fL (9.4-12.4); Monocytes Absolute Auto 0.9 X10*3/uL (0.1-1.2); Monocytes Percent Auto 20.2 % (2-11); Neutrophils Percent Auto 43.4 % (45-73); Platelet Count 105 X10*3/uL (160-400); Red Blood Count 2.81 X10*6/uL (4.60-5.80); Red Cell Distribution Width 14.3 % (11.0-16.0); SCAN SMEAR FLAG 1; White Blood Count 4.6 X10*3/uL (4.8-10.8)
[2023-07-04 18:35] LABS: Ethanol 241 mg/dL
[2023-07-04 18:37] LABS: Alanine Aminotransferase 35 U/L (0-40); Albumin Level 3.6 g/dL (3.5-5.0); Alkaline Phosphatase 87 U/L (39-117); Anion Gap 15 (12-20); Aspartate Amino Transferase 62 U/L (5-37); Bilirubin Total 0.4 mg/dL (0.0-1.0); Blood Urea Nitrogen 13 mg/dL (9-16); Calcium 8.3 mg/dL (8.4-10.2); Carbon Dioxide 22 mmol/L (22-29); Chloride 93 mmol/L (96-108); Creatinine Clr Calc Pharmacy 85.4; Estimated Glomerular Filt Rate > 60; Glucose Random 84 mg/dL (60-115); Potassium 3.3 mmol/L (3.3-5.1); Sodium 127 mmol/L (135-145); Total Protein 6.3 g/dL (6.5-8.0)
[2023-07-04 18:50] LABS: SLIDE REVIEW VERIFIED
[2023-07-04] MEDS: 0.9 % Sodium Chloride 1,000 ML 999 ML IV (19:13)
[2023-07-05] VITALS: RESP 12
--- NOTE | 2023-07-05 01:02 | PC.NURSE ---
Pt sleeping at the bedside in no apparent distress. Breaths are even regular and unlabored with equal chest rises. Monitoring is ongoing.
[2023-07-05 04:00] VITALS: RESP 14
[2023-07-05 06:16] VITALS: BP 136/79; PULSE 78; RESP 18; TEMP 36.6; O2SAT 97
--- NOTE | 2023-07-05 06:16 | MHC.EDTECH ---
@0610 Pt was found to be incontinent. This tech with the help of another, cleaned up pt, changed and washed the bed, Boosted and repositioned in the bed, warm blanket given. Vitals obtained. Pt all set at this time.
[2023-07-05] MEDS: Ibuprofen 400 MG TABLET PO (06:36)
--- NOTE | 2023-07-05 07:47 | PC.NURSE ---
patient sitting up ate breakfast, patient is alert and oriented x3. resppirations equal and unlabored, skin dry and intact
[2023-07-05 08:25] VITALS: BP 142/75; PULSE 84; RESP 16; TEMP 36.8; O2SAT 94
--- NOTE | 2023-07-05 08:34 | PC.NURSE ---
patient provided with care items to clean up in the bathroom, patient provided with dry clothes. patient ambulates with steady gait with cane.
== END 2023-07-05 08:56 | disposition home or self-care (01) ==
PROVIDERS: Registered Nurse Emergency; Emergency Provider Internal Medicine; PCP Internal Medicine
DX: F10.129 Alcohol abuse with intoxication, unspecified (principal); Y90.8 Blood alcohol level of 240 mg/100 ml or more; I10 Essential (primary) hypertension; J44.9 Chronic obstructive pulmonary disease, unspecified; G40.909 Epilepsy, unspecified, not intractable, without status epilepticus
CPT/HCPCS: 36415; 70450; 72125; 80053; 80307; 85025; 96360; 96361; 99284; 99285

== ENCOUNTER 2023-09-17 19:32 | Emergency (ER) | payer MEDICAID, SELFPAY ==
[2023-09-17 19:36] VITALS: BP 155/84; BP 160/80; PULSE 87; PULSE 88; RESP 17; TEMP 36.5; O2SAT 95; O2SAT 97; BMI 23.5
--- NOTE | 2023-09-17 19:54 | PC.NURSE ---
pt biba from home, a&ox4, respirations even and unlabored. pt reporting drinking 2 full bottles of vodka prior to arrival. pt reports his friend at home called the ambulance for him. pt reporting weakness but denies pain. pt reports hx of alcohol use but denies alcohol withdrawals. security called to bedside for exchange operator, pt belongings placed in POD closet. pt calm and cooperative.
--- NOTE | 2023-09-17 20:30 | ED_ITS ---
HPI - General Adult General Chief complaint: ETOH/Substance Use Stated complaint: ETOH, WEAK Time Seen by Provider: 09/17/23 20:22 Source: patient and EMS Mode of arrival: EMS Limitations: no limitations History of Present Illness ED Provider: Gayathri Zaragoza PA-C HPI narrative: Patient is a 63 year old assigned male at with a history of COPD, Hep C, and alcohol abuse presenting to the emergency department today with alcohol intoxication. Patient states that he drank 2 full bottles of vodka today. Patient denies any dizziness, lightheadedness, abdominal pain, nausea, vomiting, fever, chills, blurry vision, double vision, loss of vision, chest pain, difficulty breathing, shortness of breath, back pain, night sweats, pain with urination, increased urinary frequency, increased urinary urgency, blood in his urine or stool, syncope or a near syncopal episode, recent trauma or falls, bowel incontinence, bladder incontinence, or any other complaints at this time. Relieving factors: none Exacerbating factors: none Associated symptoms: denies other symptoms Treatments prior to arrival: none Related Data Home Medications ?Medication ?Instructions ?Recorded ?Confirmed thiamine HCl (vitamin B1) 100 mg 1 tab PO DAILY 09/20/20 03/01/21 tablet (Vitamin B-1) albuterol sulfate 90 mcg/actuation 2 puff PO Q4H PRN Shortness Of 12/16/20 03/01/21 aerosol inhaler (ProAir HFA) Breath multivitamin 1 tab PO DAILY 12/16/20 03/01/21 aspirin 81 mg tablet,delayed 1 tab PO DAILY 01/22/21 03/01/21 release folic acid 1 mg tablet 1 mg PO DAILY 03/01/21 03/01/21 oxcarbazepine 150 mg tablet 150 mg PO TID 03/01/21 03/01/21 Previous Rx's ?Medication ?Instructions ?Recorded amlodipine 10 mg tablet 10 mg PO DAILY #30 tabs 03/20/21 atorvastatin 20 mg tablet (Lipitor) 20 mg PO BEDTIME #30 tabs 03/20/21 carvedilol 12.5 mg tablet 25 mg PO BID #60 tabs 03/20/21 fluoxetine 20 mg tablet 20 mg PO DAILY #0 tabs 03/20/21 losartan 25 mg tablet 25 mg PO BID #60 tabs 01/07/22 Allergies Allergy/AdvReac Type Severity Reaction Status Date / Time acetaminophen [From PERCOCET] Allergy Mild Rash Verified 09/17/23 19:41 oxycodone [From PERCOCET] Allergy Mild Rash Verified 09/17/23 19:41 Penicillins [PENICILLINS] Allergy Mild Rash Verified 09/17/23 19:41 Review of Systems 2 Constitutional: Constitutional: Reports no additional constitutional complaints, Denies chills, Denies fever(s) and Denies night sweats Eyes: Eyes: Reports no additional eye complaints, Denies blurry vision, Denies change in vision, Denies diplopia, Denies eye discharge, Denies loss of vision and Denies eye pain ENT: Denies dizziness Cardiovascular: Cardiovascular: Reports no additional cardiovascular complaints, Denies chest pain, Denies lightheadedness, Denies Loss of Consciousness and Denies dyspnea Respiratory: Respiratory: Reports no additional respiratory complaints and Denies dyspnea Gastrointestinal: Gastrointestinal: Reports no additional gastrointestinal complaints, Denies abdominal pain, Denies melena, Denies hematochezia, Denies change in bowel habits and Denies change in stool character Genitourinary: Genitourinary: Reports no additional male genitourinary complaints, Denies hematuria, Denies oliguria, Denies difficulty urinating, Denies dysuria, Denies urinary frequency, Denies urinary hesitancy, Denies urinary incontinence and Denies urinary urgency Musculoskeletal: Musculoskeletal: Reports no additional musculoskeletal complaints, Denies numbness and Denies tingling Neurologic: Denies dizziness, Denies loss of vision, Denies numbness and Denies tingling Psychiatric: Psychiatric: Reports no additional psychiatric complaints Endocrine: Endocrine: Reports no additional endocrine complaints Hematologic/Lymphatic: Hematologic/Lymphatic: Reports no additional hematologic/lymphatic complaints Allergic/Immunologic: Allergic/Immunologic: Reports no additional allergic/immunologic complaints [facility] Past Medical History Attestation statement: The following information was validated with the patient. Source: old records reviewed and nursing notes reviewed Medical History Anemia Hypertension Arachnoid cyst Cerebral microvascular disease Seizure disorder HCV (hepatitis C virus) Acute hypokalemia Acute hyponatremia H/O ETOH abuse COPD (chronic obstructive pulmonary disease) Heart disease Surgical History H/O left wrist surgery Social History Social History Household Members: None Household Members Other:: Brother Housing: Homeless Do you presently have visiting nurse or other home services: No Alcohol intake: current Alcohol intake frequency: a few times a week Alcohol type: beer Comment: 1:1 sitter Patient Tobacco Use Status: Current everyday Tobacco user Tobacco use type: Cigarette Cigarette Packs Per Day: 0.5 Cigarettes Per Day: 10 Smoked in Last 30 Days: No Second Hand Smoke Exposure: No Use of substances other than those prescribed or required for medical reasons: No Advance Directives: Yes Advance Directives on File: Yes Advance Directives Date on File: 12/25/20 Do you have a plan to hurt others: No Plan service: No Current occupational status: unemployed Physical Exam ED Vital Signs: Vital Signs - 24 hr 09/17/23 19:36 09/17/23 22:25 Temperature 97.7 F 97.2 F Pulse Rate 87 85 Respiratory Rate 17 17 Blood Pressure 155/84 H 126/75 Pulse Oximetry 97 97 Oxygen Delivery Method Room Air Room Air BMI result Body Mass Index 23.5 Const General: cooperative, no acute distress, alert and awake Nutritional Appearance: well nourished Orientation/consciousness: patient oriented x3 Limitations: no limitations HENMT Head: Yes normal to inspection and Yes atraumatic Ears: hearing grossly normal bilaterally and external ears normal General nose exam: Normal external nose present, no nasal discharge noted and no epistaxis Face and sinus: Yes normal facial exam, No abrasion and No laceration Mouth: Normal oral and palatal mucosa present, no drooling and no muffled voice Eyes General: appearance normal, both eyes and all related structures Periorbital: periorbital findings normal Eyelids: Yes eyelids normal Conjunctivae: conjunctivae normal Pupils: Equal, round and reactive pupils present EOM: EOMs intact bilaterally Neck Neck: Yes normal visual inspection, Yes full ROM and Yes no lymphadenopathy Chest Chest palpation & inspection: normal inspection of the chest Resp Effort & Inspection: normal respiratory effort and able to speak in complete sentences GI Inspection: Yes normal to inspection Neuro General: patient oriented x3 and moves all extremities Cranial nerves: Yes Equal, round and reactive pupils present Cognition (Neuro): normal cognition Extrem General: Yes normal to inspection, Yes full ROM and Yes capillary refill normal Psych Appearance: grossly normal Mental Status: mental status grossly normal Affect: normal affect Attitude: cooperative Thought process: Normal thought process present Thought content: Normal thought content present Insight: Good insight present (Psych) Medical Decision Making Medical Decision Making [facility] Narrative: Patient is a 63 year old assigned male at with a history of alcohol abuse, hepatitis C, and COPD presenting to the emergency department today with alcohol intoxication. Patient's physical exam was unremarkable. Patient's blood work showed a chronic hyponatremia, mild hypokalemia, and an ethyl alcohol of 266. Patient's EKG was unremarkable. I explained my physical exam findings as well as all test results to the patient. I answered all questions asked by the patient. Patient received IV fluids and potassium while in the department. Patient remains in the department until sober enough for discharge. Differential Diagnosis Differential Diagnoses: The differential diagnosis associated with the presentation includes Alcohol abuse Alcohol use Intoxication Hypokalemia Hyppnatremia Admission/Observation Consideration of admission/observation: Escalation of care including admission/observation considered Patient would have been admitted to the hospital had his work up had any findings where hospital admission was appropriate and his clinical presentation warranted hospital admission. Lab Data [facility] Lab Attestation statement: I reviewed the patient's lab results. My interpretation of these results are in the [facility] Rationale portion of this note. 09/17/23 20:51 09/17/23 20:51 Labs: Lab Results 09/17/23 Range/Units 20:51 WBC 9.0 (4.8-10.8) X10*3/uL RBC 3.16 L (4.60-5.80) X10*6/uL Hgb 10.7 L (14.0-18.0) g/dl Hct 28.2 L (42.0-52.0) % MCV 89.2 (80.0-98.0) fL MCH 33.9 H (27.0-33.0) pg MCHC 37.9 H (31.0-36.0) g/dl RDW 13.1 (11.0-16.0) % Plt Count 113 L (160-400) X10*3/uL MPV 8.9 L (9.4-12.4) fL Immature Gran % (Auto) 0.3 (0.0-0.4) % Neut % (Auto) 65.4 (45-73) % Lymph % (Auto) 16.0 L (20-40) % [place] % (Auto) 15.7 H (2-11) % Eos % (Auto) 1.8 (0-4) % Baso % (Auto) 0.8 (0-2) % Lymph # (Auto) 1.4 (1.2-4.9) X10*3/uL [place] # (Auto) 1.4 H (0.1-1.2) X10*3/uL Eos # (Auto) 0.2 (0.0-0.4) X10*3/uL Baso # (Auto) 0.1 (0.0-0.2) X10*3/uL Abs Immat Gran (auto) 0.03 (0.00-0.03) X10*3/uL Absolute Neuts (auto) 5.9 (2.0-8.3) x10*3/uL Absolute Nucleated RBC 0.000 (0.0-0.012) X10*3/uL Nucleated RBC % (auto) 0.0 (0.0-0.2) /100WBC Smear Tech's Comments VERIFIED Sodium 125 L (135-145) mmol/L Potassium 3.1 L (3.3-5.1) mmol/L Chloride 87 L (96-108) mmol/L Carbon Dioxide 21 L (22-29) mmol/L Anion Gap 20 (12-20) BUN 13 (9-16) mg/dL Creatinine 0.91 (0.5-1.4) mg/dL Estim Creat Clear Calc 79.6 Estimated GFR > 60 Random Glucose 83 (60-115) mg/dL Calcium 8.5 (8.4-10.2) mg/dL Total Bilirubin 0.4 (0.0-1.0) mg/dL AST 23 (5-37) U/L ALT 12 (0-40) U/L Alkaline Phosphatase 69 (39-117) U/L Total Protein 7.1 (6.5-8.0) g/dL Albumin 3.5 (3.5-5.0) g/dL Salicylates < 5.0 L (15-30) mg/dL Acetaminophen < 3 (<30) mcg/mL Ethyl Alcohol 266 mg/dL COVID-19 ([facility]) Negative (Negative) COVID-19 Clin Com See Note Independent Interpretation I performed an independent interpretation of an: EKG Interpretation: Vent. Rate: 079 BPM Atrial Rate: 079 BPM P-R Int: 150 ms QRS Dur: 080 ms QT Int: 392 ms P-R-T Axes: 081 024 057 degrees QTc Int: 449 ms Normal sinus rhythm Normal ECG When compared with ECG of 14-APR-2022 19:56, No significant change was found DD/ 35 Independent Historian Clinical information obtained from an independent historian. History obtained from or confirmed by: EMS (EMS provided additional history and confirmed the history provided by the patient.) Critical Care Time Critical Care Time Critical Care Time: Yes Total Critical Care Time: 38 Attestation: I spent 38 minutes of Critical Care Time with this patient. This does not include time spent on separately reported billable procedures. Discharge Plan Discharge Clinical Impression: Alcohol intoxication, Acute hyponatremia, Hypokalemia Patient Disposition: Still a Patient Prescriptions: No Action thiamine HCl (vitamin B1) [Vitamin B-1] 100 mg tablet 1 tab PO DAILY multivitamin Tablet 1 tab PO DAILY albuterol sulfate [ProAir HFA] 90 mcg/actuation HFA aerosol inhaler 2 puff PO Q4H PRN (Reason: Shortness Of Breath) oxcarbazepine 150 mg Tablet 150 mg PO TID folic acid 1 mg Tablet 1 mg PO DAILY carvedilol 12.5 mg Tablet 25 mg PO BID Qty: 60 0RF Protocol: Hold for SBP/HR < HOLD for SBP < : 90 HOLD for HR < : 60 amlodipine 10 mg Tablet 10 mg PO DAILY Qty: 30 0RF Protocol: Hold for SBP< HOLD for SBP < : 90 atorvastatin [Lipitor] 20 mg tablet 20 mg PO BEDTIME Qty: 30 0RF fluoxetine 20 mg Tablet 20 mg PO DAILY Qty: 0 0RF losartan 25 mg Tablet 25 mg PO BID Qty: 60 0RF Protocol: Hold for SBP< HOLD for SBP < : 90 aspirin 81 mg tablet,delayed release (DR/EC) 1 tab PO DAILY Print Language: Armenian
--- NOTE | 2023-09-17 20:30 | ECG_ITS ---
Test Reason : ETOH Blood Pressure : / mmHG Vent. Rate : 079 BPM Atrial Rate : 079 BPM P-R Int : 150 ms QRS Dur : 080 ms QT Int : 392 ms P-R-T Axes : 081 024 057 degrees QTc Int : 449 ms Normal sinus rhythm Normal ECG When compared with ECG of 14-APR-2022 19:56, No significant change was found Referred By: Gayathri Zaragoza Electronically Signed By:BREANA MATTHEWS
[2023-09-17 21:13] LABS: Alanine Aminotransferase 12 U/L (0-40); Albumin Level 3.5 g/dL (3.5-5.0); Alkaline Phosphatase 69 U/L (39-117); Anion Gap 20 (12-20); Aspartate Amino Transferase 23 U/L (5-37); Bilirubin Total 0.4 mg/dL (0.0-1.0); Blood Urea Nitrogen 13 mg/dL (9-16); Calcium 8.5 mg/dL (8.4-10.2); Carbon Dioxide 21 mmol/L (22-29); Chloride 87 mmol/L (96-108); Creatinine Clr Calc Pharmacy 79.6; Estimated Glomerular Filt Rate > 60; Ethanol 266 mg/dL; Glucose Random 83 mg/dL (60-115); Potassium 3.1 mmol/L (3.3-5.1); Sodium 125 mmol/L (135-145); Total Protein 7.1 g/dL (6.5-8.0)
[2023-09-17 21:14] LABS: Acetaminophen LAB < 3 mcg/mL (<30); Salicylate < 5.0 mg/dL (15-30)
[2023-09-17 21:17] LABS: COVID-19 Test Negative (Negative); IDNOW Serial# 08D9AD1C
[2023-09-17 21:36] LABS: Basophils Absolute Auto 0.1 X10*3/uL (0.0-0.2); Basophils Percent Auto 0.8 % (0-2); Eosinophils Absolute Auto 0.2 X10*3/uL (0.0-0.4); Eosinophils Percent Auto 1.8 % (0-4); Hematocrit 28.2 % (42.0-52.0); Hemoglobin 10.7 g/dl (14.0-18.0); Imm Gran Abs Auto 0.03 X10*3/uL (0.00-0.03); Imm Gran Pct Auto 0.3 % (0.0-0.4); Lymphocytes Absolute Auto 1.4 X10*3/uL (1.2-4.9); MANUAL DIFF FLAG SCAN; Mean Corpuscular Hemoglobin 33.9 pg (27.0-33.0); Mean Corpuscular Volume 89.2 fL (80.0-98.0); Mean Platelet Volume 8.9 fL (9.4-12.4); Monocytes Absolute Auto 1.4 X10*3/uL (0.1-1.2); Monocytes Percent Auto 15.7 % (2-11); Neutrophils Absolute Auto 5.9 x10*3/uL (2.0-8.3); Neutrophils Percent Auto 65.4 % (45-73); Platelet Count 113 X10*3/uL (160-400); Red Blood Count 3.16 X10*6/uL (4.60-5.80); Red Cell Distribution Width 13.1 % (11.0-16.0); SCAN SMEAR FLAG 1
[2023-09-17 21:37] LABS: Mean Corpuscular HGB Conc 37.9 g/dl (31.0-36.0); SLIDE REVIEW VERIFIED
[2023-09-17 22:25] VITALS: BP 126/75; PULSE 85; RESP 17; TEMP 36.2; O2SAT 97
[2023-09-18 00:29] VITALS: BP 146/86; PULSE 73; RESP 16; TEMP 36.6; O2SAT 98
--- NOTE | 2023-09-18 00:35 | PC.NURSE ---
iv access obtained at this time, 20G placed in right ac.
[2023-09-18] MEDS: Potassium Chloride/H20 10 MEQ/100 ML PIGGYBACK 100 MEQ IV ×2 (01:22→02:26)
[2023-09-18] MEDS: 0.9 % Sodium Chloride 250 ML 999 ML IV (01:24)
--- NOTE | 2023-09-18 03:40 | PC.NURSE ---
pt removed IV access at this time. pt noted to have soiled self in feces and urine. pt reports he is ambulatory at baseline but reports he sometimes goes on himself .
[2023-09-18 04:53] LABS: Appearance Urine Clear; Color Urine Yellow; Glucose Urine UA Negative (Negative); Leukocyte Esterase Urine Large (3+) (Negative); Nitrite Urine Negative (Negative); Specific Gravity - Urine <= 1.005 (1.005-1.025); UMIC TRIGGER UA YES; Urine Blood Moderate (2+) (Negative); Urine Ketones Trace mg/dL (Negative); Urine Protein 100 (2+) mg/dL (Neg-Trace)
[2023-09-18 05:05] LABS: Amphetamine Screen Urine Not Detected (Not Detect); Barbiturates, Urine Not Detected (Not Detect); Benzodiazepines Screen Urine Not Detected (Not Detect); Buprenorphine Scr Not Detected (Not Detect); Cannabinoid Screen Urine Not Detected (Not Detect); Cocaine Screen Urine Not Detected (Not Detect); Fentanyl, urine Not Detected (Not Detect); Methadone Screen, Urine Not Detected (Not Detect); Opiate Screen Urine Not Detected (Not Detect); Oxycodone Screen Urine Not Detected (Not Detect); Phencyclidine Screen Urine Not Detected (Not Detect)
[2023-09-18 05:07] LABS: Bacteria Urine Trace (None Seen); Hyaline Casts Urine 0-2 /LPF (0-2); Squamous Epithelial Cell Urine 0-2 /HPF (0-2)
[2023-09-18 06:23] VITALS: BP 151/85; PULSE 75; RESP 16; TEMP 37.2; O2SAT 98
[2023-09-18 09:02] VITALS: BP 174/97; PULSE 77; RESP 18; TEMP 36.2; O2SAT 95
== END 2023-09-18 09:02 | disposition home or self-care (01) ==
PROVIDERS: Physician Assistant Medical; Emergency Provider Emergency Medicine Emergency Medical Services
DX: F10.120 Alcohol abuse with intoxication, uncomplicated (principal); Y90.8 Blood alcohol level of 240 mg/100 ml or more; E87.1 Hypo-osmolality and hyponatremia; E87.6 Hypokalemia; I10 Essential (primary) hypertension; J44.9 Chronic obstructive pulmonary disease, unspecified; B19.20 Unspecified viral hepatitis C without hepatic coma; F17.210 Nicotine dependence, cigarettes, uncomplicated; Z79.899 Other long term (current) drug therapy; Z79.82 Long term (current) use of aspirin; Z11.52 Encounter for screening for COVID-19
CPT/HCPCS: 80053; 80143; 80179; 80307; 81001; 85025; 87635; 93005; 96365; 96366; 96367; 99285; J3480

== ENCOUNTER → 2023-09-17 20:30 | Outpatient (BNV) | payer MEDICAID, SELFPAY | PROVIDERS: Emergency Provider Emergency Medicine Emergency Medical Services; Visit Provider Internal Medicine | DX: F10.129 Alcohol abuse with intoxication, unspecified (principal); E87.1 Hypo-osmolality and hyponatremia; E87.6 Hypokalemia | CPT/HCPCS: 93010 ==